=== PATIENT | female | born 1960 | race Caucasian/White ===

== ENCOUNTER → 2020-03-16 08:59 | Outpatient (BNVA) | payer MEDICAID, SELFPAY | PROVIDERS: PCP Nurse Practitioner Family; Referring Provider Nurse Practitioner Family; Visit Provider Internal Medicine Endocrinology, Diabetes & Metabolism | DX: Z76.89 Persons encountering health services in other specified circumstances (principal) ==

== ENCOUNTER → 2020-03-29 10:49 | Outpatient (BNVA) | payer MEDICAID, SELFPAY | PROVIDERS: PCP Nurse Practitioner Family; Referring Provider Nurse Practitioner Family; Visit Provider Internal Medicine Gastroenterology | DX: Z76.89 Persons encountering health services in other specified circumstances (principal) ==

== ENCOUNTER 2020-03-30 10:02 | Outpatient (REF) | payer MEDICAID, SELFPAY ==
[2020-03-30 10:41] LABS: MANUAL DIFF FLAG NO
[2020-03-30 10:45] LABS: Basophils Percent Auto 0.4 % (0-2); Eosinophils Absolute Auto 0.2 X10*3/uL (0.0-0.4); Eosinophils Percent Auto 2.1 % (0-4); Hematocrit 40.2 % (37-47); Imm Gran Abs Auto 0.01 X10*3/uL (0.00-0.03); Imm Gran Pct Auto 0.1 % (0.0-0.4); Lymphocytes Absolute Auto 2.4 X10*3/uL (1.2-4.9); Lymphocytes Percent Auto 32.7 % (20-40); Mean Corpuscular HGB Conc 34.8 g/dl (31.0-35.0); Mean Corpuscular Hemoglobin 35.5 pg (27.0-33.0); Mean Platelet Volume 10.1 fL (9.4-12.3); Monocytes Absolute Auto 0.6 X10*3/uL (0.1-1.2); Monocytes Percent Auto 7.8 % (2-11); Neutrophils Absolute Auto 4.2 X10*3/uL (2.0-8.3); Neutrophils Percent Auto 56.9 % (45-73); Platelet Count 193 X10*3/uL (160-400); Red Blood Count 3.94 X10*6/uL (4.20-5.50); Red Cell Distribution Width 12.3 % (11.0-16.0); White Blood Count 7.3 X10*3/uL (4.8-10.8)
[2020-03-30 10:50] LABS: INTERNATIONAL NORM RATIO 1.1 (0.9-1.1); Prothrombin Time 13.5 SEC (10.8-13.0)
[2020-03-30 11:06] LABS: Alanine Aminotransferase 46 U/L (0-31); Albumin Level 4.1 g/dL (3.5-5.0); Alkaline Phosphatase 66 U/L (39-117); Anion Gap 13 (12-20); Aspartate Amino Transferase 68 U/L (5-31); Bilirubin Total 0.7 mg/dL (0.0-1.0); Blood Urea Nitrogen 6 mg/dL (9-16); Calcium 9.3 mg/dL (8.4-10.2); Carbon Dioxide 31 mmol/L (22-29); Chloride 98 mmol/L (96-108); Estimated Glomerular Filt Rate > 60; Glucose Random 120 mg/dL (60-115); Potassium 4.3 mmol/l (3.3-5.1); Sodium 138 mmol/L (135-145); Total Protein 7.7 g/dL (6.5-8.0)
[2020-03-31 08:18] LABS: Hepatitis A Antibody IgG REACTIVE (Nonreactive); ~Hepatitis A Antibody IgG 11.04 S/CO (0.00-0.99)
[2020-03-31 08:33] LABS: Hepatitis B Surface Antigen Negative (Negative); ~HepC Num1 0.13 S/CO (0.00-0.79); ~Hepatitis C Antibody Nonreactive (Nonreactive)
[2020-03-31 09:16] LABS: HBS Num1 23.74 mIU/mL (0-7.99); HBc Num1 0.14 S/CO (0.00-0.79); Hepatitis B Core Antibody Nonreactive (Nonreactive); ~Hepatitis B Surface Antibody REACTIVE (Nonreactive)
[2020-04-01 13:43] LABS: Anti Nuclear Antibody Screen NEGATIVE (NEGATIVE)
[2020-04-06 23:33] LABS: Smooth Muscle Antibody <20 U (<20)
[2020-04-07 16:37] LABS: FIB-ALT 43 U/L (6-29); FIB-Alpha-2-Macroglobulin 340 mg/dL (106-279); FIB-Apolipoprotein A1 118 mg/dL (101-198); FIB-GGT 283 U/L (3-65); FIB-Haptoglobin <8 mg/dL (43-212); FIB-Total Bilirubin 0.5 mg/dL (0.2-1.2); Liver Fibrosis Score 0.94; Liver Fibrosis Stage F4; Nec Inflam Act Grade A1-A2; Nec Inflam Act Score 0.46
== END 2020-03-30 10:03 | disposition home or self-care (01) ==
LOC: HO.LAB 10:02
PROVIDERS: PCP Nurse Practitioner Family; Visit Provider Internal Medicine Gastroenterology
DX: K74.60 Unspecified cirrhosis of liver (principal)
CPT/HCPCS: 36415; 80053; 81596; 85025; 85610; 86038; 86039; 86255; 86704; 86706; 86708; 86803; 87340

== ENCOUNTER 2020-04-14 09:52 | Outpatient (REF) | payer MEDICAID, SELFPAY ==
--- NOTE | 2020-04-14 09:57 | US_ITS ---
EXAMINATION: ULTRASOUND ABDOMEN WITH LAST TO GRAVITY. CLINICAL INFORMATION: Unspecified cirrhosis of liver COMPARISON: None TECHNIQUE: Routine Limited imaging of the abdomen was performed FINDINGS: The body of the pancreas is homogeneous in echotexture. The tail and head of the pancreas is normal echogenic appearance without enlargement. The liver measures 18.6 cm in length and left lobe measures 14.6 cm in length. The liver is diffusely echogenic without any focal lesion or intrahepatic ductal dilatation. There is normal hepatopedal flow seen in the portal vein on Doppler exam. From Elastography the EPQ velocity median value is 1.74 and IQR/median is 0.20. There are no radiopaque gallstones wall thickening, polyps or echogenic bile. CBD measures 0.55 cm. The right kidney measures 11.4 cm. There is normal cortical thickness. No echogenic stones, cyst or hydronephrosis seen. US/US abdomen mahmood w elastography IMPRESSION: Hepatic steatosis without focal lesion. There is hepatopedal flow seen in the portal vein. Visualized pancreas, gallbladder and the right kidney is unremarkable. On Elastography there is mild to moderate fibrosis stage F2 - F3
== END 2020-04-14 09:53 | disposition home or self-care (01) ==
LOC: HO.US 09:52
PROVIDERS: PCP Nurse Practitioner Family; Visit Provider Internal Medicine Gastroenterology
DX: K74.60 Unspecified cirrhosis of liver (principal)
CPT/HCPCS: 76705; 76981

== ENCOUNTER → 2020-06-22 10:15 | Outpatient (BNVA) | payer MEDICAID, SELFPAY | PROVIDERS: PCP Nurse Practitioner Family; Visit Provider Internal Medicine Endocrinology, Diabetes & Metabolism | DX: E11.65 Type 2 diabetes mellitus with hyperglycemia (principal); E11.21 Type 2 diabetes mellitus with diabetic nephropathy; Z79.4 Long term (current) use of insulin; E78.5 Hyperlipidemia, unspecified; E04.2 Nontoxic multinodular goiter; E55.9 Vitamin D deficiency, unspecified; E66.9 Obesity, unspecified; M81.0 Age-related osteoporosis without current pathological fracture; I10 Essential (primary) hypertension | CPT/HCPCS: 82947; 99212 ==

== ENCOUNTER 2020-06-22 11:33 | Outpatient (REF) | payer MEDICAID, SELFPAY ==
[2020-06-22 13:56] LABS: Free T4 (Free Thyroxine) 0.97 ng/dL (0.71-1.85); Thyroid Stimulating Hormone 1.47 uIU/mL (0.32-4.0); Vitamin D 25-OH Total 31.3 ng/mL (>30)
[2020-06-22 14:06] LABS: Creatinine Urine 25.65 mg/dL; Microalbumin Urine < 5.0 mg/L
[2020-06-23 08:07] LABS: LDL Cholesterol Direct 58 mg/dL (<100)
[2020-06-28 13:48] LABS: N-Telopeptide 12 (see note); NTXCreaRU 25 mg/dL (20-275)
== END 2020-06-22 11:34 | disposition home or self-care (01) ==
LOC: HO.10HDL 11:33
PROVIDERS: Visit Provider Internal Medicine Endocrinology, Diabetes & Metabolism
DX: M81.0 Age-related osteoporosis without current pathological fracture (principal); E04.2 Nontoxic multinodular goiter; E11.65 Type 2 diabetes mellitus with hyperglycemia
CPT/HCPCS: 36415; 82043; 82306; 82523; 83721; 84439; 84443

== ENCOUNTER 2020-06-30 10:05 | Outpatient (REF) | payer MEDICAID, SELFPAY ==
--- NOTE | ~2020-06-30 | US_ITS ---
EXAMINATION: US THYROID CLINICAL INFORMATION: Nontoxic multinodular goiter. COMPARISON: Ultrasound soft tissue head/neck thyroid dated 12/26/2018 and 09/27/2017 TECHNIQUE: Linear transducer calloway-scale and color Doppler examination with attention to the region of the thyroid. FINDINGS: SIZE: Measurements of the thyroid lobes and nodules are given in sagittal, anteroposterior and transverse dimensions respectively. Right Thyroid Lobe: 2.9 x 0.8 x 0.9 cm, volume 1.0 mL. Previously 3.5 x 1.1 x 0.8 cm, volume 1.6 mL. Parenchyma: The gland echotexture is homogeneous. Thyroid vascularity is normal. Left Thyroid Lobe: 4.6 x 2.7 x 2.4 cm, volume 15.7 mL. Previously 4.2 x 2.4 x 2.3 cm, volume 11.7 mL. Parenchyma: The gland echotexture is heterogeneous. Thyroid vascularity is normal. Isthmus: 0.2 cm in maximum AP dimension. Previously 0.2 cm. Estimated total number of nodules greater than or equal to 1 cm: 1. Biology Tutor nodules are described as follows: 1. Location: Left. Size: 3.1 x 2.0 x 2.7 cm, volume 8.8 mL. Previously: 3.3 x 2.4 x 2.3 cm, volume 9.7 mL. Nodule characteristics: Composition: Solid/almost completely solid (2). Echogenicity: Hypoechoic (2). Shape: Taller than wide (3). Margins: Smooth (0). Echogenic Foci: Macrocalcifications (1). ACR TI-RADS total points: 8 ACR TI-RADS category: 5 Significant change in size (>/= 20% in 2 dimensions and minimal increase of 2 mm or 50% or greater increase in volume): Minimal decrease in the volume. Change in features: None. Change in ACR TI-RADS risk category: None. Also visualized is a tiny cyst in the right lobe. NODES: No lymphadenopathy is seen in the tissue surrounding the thyroid gland. US/US thyroid IMPRESSION: Solitary nodule left lobe unchanged to previous exam. Abnormal by TI-RADS criteria. Since there is no change, recommend continued followup. ACR TI-RADS RECOMMENDATION REFERENCE: Ultrasound-guided fine-needle aspiration, followup ultrasound, no further follow up. * TR1 (0 point) and TR 2 (2 points): No FNA or follow up. * TR3 (3 points): FNA if more than or equal to 2.5 cm in maximum dimension, followup ultrasound in 1, 3 and 5 years if 1.5 to 2.4 cm in maximum dimension. * TR4 (4-6 points): FNA if more than or equal to 1.5 cm in maximum dimension, followup ultrasound in 1, 2, 3 and 5 years if 1 to 1.4 cm in maximum dimension. * TR5 (more than or equal to 7 points): FNA if more than or equal to 1 cm in maximum dimension, followup ultrasound every year for 5 years if 0.5 to 0.9 cm in maximum dimension. * TR3, TR4 or TR5 nodules that are below the size threshold for follow up receive no follow up.
== END 2020-06-30 10:06 | disposition home or self-care (01) ==
LOC: HO.US 10:05
PROVIDERS: Visit Provider Internal Medicine Endocrinology, Diabetes & Metabolism
DX: E04.2 Nontoxic multinodular goiter (principal)
CPT/HCPCS: 76536

== ENCOUNTER → 2020-09-28 09:42 | Outpatient (BNVA) | payer MEDICAID, SELFPAY | PROVIDERS: Visit Provider Internal Medicine Endocrinology, Diabetes & Metabolism | DX: E11.65 Type 2 diabetes mellitus with hyperglycemia (principal); E11.21 Type 2 diabetes mellitus with diabetic nephropathy; E78.5 Hyperlipidemia, unspecified; E04.2 Nontoxic multinodular goiter; E55.9 Vitamin D deficiency, unspecified; E66.9 Obesity, unspecified; I10 Essential (primary) hypertension; M81.0 Age-related osteoporosis without current pathological fracture; Z79.4 Long term (current) use of insulin | CPT/HCPCS: 82947; 99212 ==

== ENCOUNTER → 2021-01-24 13:19 | Outpatient (BNVA) | payer MEDICAID, SELFPAY | PROVIDERS: PCP Nurse Practitioner Family; Referring Provider Nurse Practitioner Family; Visit Provider Internal Medicine Gastroenterology | DX: K21.9 Gastro-esophageal reflux disease without esophagitis (principal); K74.60 Unspecified cirrhosis of liver; E55.9 Vitamin D deficiency, unspecified | CPT/HCPCS: 99212 ==

== ENCOUNTER 2021-02-16 07:38 | Outpatient (REF) | payer MEDICAID, SELFPAY ==
--- NOTE | ~2021-02-16 | US_ITS ---
EXAMINATION: US ABDOMEN COMPLETE CLINICAL INFORMATION: Unspecified cirrhosis of liver. COMPARISON: Ultrasound abdomen limited 06/04/2020. Ultrasound abdomen complete 03/25/2019. CT abdomen 12/18/2018. X-ray abdomen 05/30/2018. MRA abdomen 11/26/2017. TECHNIQUE: Real-time imaging of the abdominal viscera. FINDINGS: PANCREAS: Normal. ABDOMINAL AORTA: The proximal visualized abdominal aorta is unremarkable. Remainder of the aorta is not visualized due to overlying bowel gas, accordingly not evaluated. INFERIOR VENA CAVA: Visualized portions are normal. LIVER: The left lobe measures 16.4 cm. The right lobe measures 17.0 cm. The liver contour is normal. There is diffuse increased liver parenchymal echogenicity, consistent with hepatic steatosis, hepatocellular disease or combination thereof. No focal hepatic lesion. There is no intrahepatic biliary duct dilatation seen. GALLBLADDER: Surgically absent. COMMON BILE DUCT: Normal in caliber measuring 0.8 cm in diameter. RIGHT KIDNEY: Normal. No hydronephrosis. No renal calculi or focal parenchymal lesions. The kidney measures 11.2 cm in maximum dimension. LEFT KIDNEY: Normal. No hydronephrosis. No renal calculi or focal parenchymal lesions. The kidney measures 11.8 cm in maximum dimension. SPLEEN: Multiple circumscribed echogenic foci are identified, the largest measures 1.2 x 1.4 cm, shows sonographic morphology most consistent with hemangioma, appears similar to prior CT study dated 12/18/2018. The spleen measures 13.2 cm in maximum dimension. FREE FLUID: None. US/US abdomen complete IMPRESSION: 1. No sonographic evidence of focal liver lesion. 2. Multiple presumed hemangioma within the spleen, the largest measures 1.4 cm, appears stable since 12/18/2018.
== END 2021-02-16 07:39 | disposition home or self-care (01) ==
LOC: HO.US 07:38
PROVIDERS: Visit Provider Internal Medicine Gastroenterology
DX: K74.60 Unspecified cirrhosis of liver (principal)
CPT/HCPCS: 76700

== ENCOUNTER 2021-02-25 08:59 | Day surgery (SDC) | payer MEDICAID, SELFPAY ==
--- NOTE | 2021-02-24 15:20 | HO.ANESPROP2 ---
Documented by User: Alyssa Gamez NP 02/24/21 15:25 HPI - Anesthesia Eval Consult details Narrative: 60yo F for Upper Endoscopy ETOH daily - 3 beers per GI note PMFSH Active Problems Active Problems: All Active Problems (Updated 03/16/20 @ 09:35 by Patricia Newman MD) Obesity (BMI 30-39.9) (Acute) GERD (gastroesophageal reflux disease) (Acute) Cirrhosis (Acute) Vitamin D deficiency (Acute) Hypertension (Acute) Dyslipidemia (Acute) Non-toxic multinodular goiter (Acute) Osteoporosis (Acute) Diabetic 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 with type 2 diabetes mellitus (Acute) custodial (current) use of insulin (Acute) Diabetes type 2, uncontrolled (Acute) Past Medical History Medical History (Updated 02/25/21 @ 09:42 by Emily Del Castillo, RN) Asthma Cirrhosis Diabetes type 2, uncontrolled Diabetic 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 with type 2 diabetes mellitus Dyslipidemia GERD (gastroesophageal reflux disease) Hypertension custodial (current) use of insulin Non-toxic multinodular goiter Obesity (BMI 30-39.9) Osteoporosis Vitamin D deficiency Family History Family History Father Esophageal cancer Mother Diabetes mellitus HTN (hypertension) Surgical History Surgical History (Updated 02/25/21 @ 09:31 by Emily Del Castillo, RN) History of bladder surgery History of esophagogastroduodenoscopy (EGD) Hx of cardiac cath Hx of cataract extraction Hx of cholecystectomy Hx of colonoscopy Social History Social History Alcohol intake: current Alcohol intake frequency: 3 or more drinks per day Alcohol type: beer Patient Tobacco Use Status: Former Tobacco user Tobacco use type: Cigarette Advance Directives: Yes Advance Directives Information Provided: Yes Advance Directives on File: Yes Advance Directives Date on File: 11/18/15 Meds Allergies Allergy/AdvReac Type Severity Reaction Status Date / Time cornflower [Cornflower] Allergy Unknown ITCHY Verified 02/25/21 09:32 EYES/HIVES peach [PEACH] Allergy Unknown NATURAL Verified 02/25/21 09:32 FRUIT - MOUTH ITCHES apples Allergy Unknown Unknown Uncoded 03/16/20 09:23 peanut Allergy Unknown Unknown Uncoded 03/16/20 09:23 Home Medications Medication Instructions Recorded Confirmed Last Taken Type fenofibrate micronized 134 mg 134 mg PO DAILY 03/16/20 02/21/21 Unknown History capsule gabapentin 100 mg capsule 100 mg PO BEDTIME 03/16/20 02/21/21 Unknown History lancets 28 gauge (FreeStyle #100 ea 03/16/20 01/24/21 Unknown History Lancets) sertraline 50 mg tablet (Zoloft) 50 mg PO DAILY 03/16/20 02/21/21 Unknown History trazodone 100 mg tablet 100 mg PO BEDTIME PRN 03/16/20 02/21/21 Unknown History solifenacin 5 mg tablet 5 mg PO DAILY 06/22/20 02/21/21 Unknown History budesonide-formoterol HFA 160 2 puff PO 02/25/21 02/25/21 Unknown History mcg-4.5 mcg/actuation aerosol inhaler (Symbicort) Exam Exam Date and Time: February 24, 2021 1520 Height,Weight and Vital Signs: Height 5 ft 1 in Weight 72.121 kg Assessment and Plan Assessment Anesthesia Assessment: Chart Reviewed Documented by User: Dave Pagan 02/25/21 10:34 [facility] Past Medical History Medical History (Updated 02/25/21 @ 09:42 by Emily Del Castillo, CHRISTIAN) Asthma Cirrhosis Diabetes type 2, uncontrolled Diabetic 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 with type 2 diabetes mellitus Dyslipidemia GERD (gastroesophageal reflux disease) Hypertension custodial (current) use of insulin Non-toxic multinodular goiter Obesity (BMI 30-39.9) Osteoporosis Vitamin D deficiency Family History Family History Father Esophageal cancer Mother Diabetes mellitus HTN (hypertension) Family history of problems with anesthesia: No Surgical History Surgical History (Updated 02/25/21 @ 09:31 by mEily De lCastillo, CHRISTIAN) History of bladder surgery History of esophagogastroduodenoscopy (EGD) Hx of cardiac cath Hx of cataract extraction Hx of cholecystectomy Hx of colonoscopy History of Problems with Anesthesia: No Social History Social History Alcohol intake: current Alcohol intake frequency: 3 or more drinks per day Alcohol type: beer Patient Tobacco Use Status: Former Tobacco user Tobacco use type: Cigarette Advance Directives: Yes Advance Directives Information Provided: Yes Advance Directives on File: Yes Advance Directives Date on File: 11/18/15 Meds Allergies Allergy/AdvReac Type Severity Reaction Status Date / Time cornflower [Cornflower] Allergy Unknown ITCHY Verified 02/25/21 09:32 EYES/HIVES peach [PEACH] Allergy Unknown NATURAL Verified 02/25/21 09:32 FRUIT - MOUTH ITCHES apples Allergy Unknown Unknown Uncoded 03/16/20 09:23 peanut Allergy Unknown Unknown Uncoded 03/16/20 09:23 Home Medications Medication Instructions Recorded Confirmed Last Taken Type fenofibrate micronized 134 mg 134 mg PO DAILY 03/16/20 02/21/21 Unknown History capsule gabapentin 100 mg capsule 100 mg PO BEDTIME 03/16/20 02/21/21 Unknown History lancets 28 gauge (FreeStyle #100 ea 03/16/20 01/24/21 Unknown History Lancets) sertraline 50 mg tablet (Zoloft) 50 mg PO DAILY 03/16/20 02/21/21 Unknown History trazodone 100 mg tablet 100 mg PO BEDTIME PRN 03/16/20 02/21/21 Unknown History solifenacin 5 mg tablet 5 mg PO DAILY 06/22/20 02/21/21 Unknown History budesonide-formoterol HFA 160 2 puff PO 02/25/21 02/25/21 Unknown History mcg-4.5 mcg/actuation aerosol inhaler (Symbicort) Exam Airway Mallampati Class: III TM Dist: >3cm Denture: Upper Loose/Missing/Broken Teeth: Yes Heart: rrr Lungs: bl breath sounds Assessment and Plan Assessment Anesthesia Assessment: Anesthesia Plan Discussed Final Anesthetic Review Family History of Problems with Anesthesia: No History of Problems with Anesthesia: No NPO: Yes ASA Class: III Final Preanesthetic Review: Meds/Allgs Chart Reviewed and Anes Risks/Benef Reviewed Patient Risk: Intermediate Procedure Risk: Intermediate Anesthetic Plan Anesthetic Plan: MAC: Disposition: Standard PACU
[2021-02-25 08:51] LABS: MANUAL DIFF FLAG NO
[2021-02-25 09:33] LABS: Basophils Percent Auto 0.5 % (0-2); Eosinophils Absolute Auto 0.2 X10*3/uL (0.0-0.4); Eosinophils Percent Auto 2.5 % (0-4); Hematocrit 42.2 % (37.0-47.0); Hemoglobin 14.2 g/dl (12.0-16.0); Imm Gran Abs Auto 0.02 X10*3/uL (0.00-0.03); Imm Gran Pct Auto 0.3 % (0.0-0.4); Lymphocytes Absolute Auto 2.3 X10*3/uL (1.2-4.9); Lymphocytes Percent Auto 36.4 % (20-40); Mean Corpuscular HGB Conc 33.6 g/dl (31.0-35.0); Mean Corpuscular Hemoglobin 34.7 pg (27.0-33.0); Mean Corpuscular Volume 103.2 fL (80.0-98.0); Mean Platelet Volume 10.3 fL (9.4-12.3); Monocytes Absolute Auto 0.5 X10*3/uL (0.1-1.2); Monocytes Percent Auto 8.4 % (2-11); Neutrophils Absolute Auto 3.3 x10*3/uL (2.0-8.3); Neutrophils Percent Auto 51.9 % (45-73); Platelet Count 207 X10*3/uL (160-400); Red Blood Count 4.09 X10*6/uL (4.20-5.50); Red Cell Distribution Width 12.2 % (11.0-16.0); White Blood Count 6.4 X10*3/uL (4.8-10.8)
[2021-02-25 09:40] LABS: INTERNATIONAL NORM RATIO 1.1 (0.9-1.1); Prothrombin Time 12.9 SEC (9.9-13.0)
--- NOTE | 2021-02-25 09:40 | MHC.SHP ---
Pre-Procedural Eval Section A Date of Service: 02/25/21 The patient is an INPATIENT: No The History & Physical has been completed within 30 days and I have reviewed it.: No Section B Chief Complaint: GERD, dysphagia Details of Present Illness: GERD, dysphagia, abdominal bloating, diarrhea Relevant Family History (Specify if Yes): Yes Relevant Social History: Tobacco Use (former smoker) Present Medications: see Short Stay Collaborative assessment Medical History: Significant History (Cirrhosis Diabetes type 2, uncontrolled Diabetic 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 with type 2 diabetes mellitus Dyslipidemia GERD (gastroesophageal reflux disease) Hypertension penitentiary (current) use of insulin Non-toxic multinodular goiter Obesity (BMI 30-39.9) Osteoporosis Vitamin D deficiency) History of Previous Operations: Relevant previous surgery/procedure and date(s) (History of bladder surgery History of esophagogastroduodenoscopy (EGD) Hx of cardiac cath Hx of cholecystectomy Hx of colonoscopy) Allergies: Allergies Allergy/AdvReac Type Severity Reaction Status Date / Time cornflower [Cornflower] Allergy Unknown ITCHY Verified 02/25/21 09:32 EYES/HIVES peach [PEACH] Allergy Unknown NATURAL Verified 02/25/21 09:32 FRUIT - MOUTH ITCHES apples Allergy Unknown Unknown Uncoded 03/16/20 09:23 peanut Allergy Unknown Unknown Uncoded 03/16/20 09:23 Review of Systems Sugical H&P ROS: Negative: Constitution and Cardiovascular and Yes, Specify: Respiratory (cough ) and Gastrointestinal (as noted above) Exam Surgical H&P Exam: Normal: Heart, Normal: Lungs, Normal: Extremities and Normal: Abdomen Plan Diagnosis/Plan: Unchanged I have reviewed the history and physical and performed a pertinent physical examination on my patient. No changes have occurred unless specified.
[2021-02-25 09:42] VITALS: BP 135/66; PULSE 66; RESP 16; TEMP 36.6; O2SAT 95
--- NOTE | 2021-02-25 09:44 | PM.OP ---
Brief Operative Note Date of Service: 02/25/21 Pre-op diagnosis: GERD, dysphagia, abd bloating, diarrhea Post-op diagnosis: other (GERD, esophageal nodule, gastric polyps, portal gastropathy, gastritis) Procedure: FLEXIBLE TRANSORAL UPPER GASTROINTESTINAL ENDOSCOPY WITH BIOPSIES Consent: Indications for the procedure and potential complications of bleeding, perforation, reaction to medications and missed diagnosis were discussed with the patient and informed consent was obtained. Instrument: Olympus GIF H 190 mid size upper endoscope Monitoring: Vital signs and clinical assessment, continuous EKG monitoring, Pulse oximetry, Carbon Dioxide monitoring and blood pressure monitoring were done throughout the procedure. Procedure: The patient was placed in the left lateral decubitis position and pre-procedure medications were administered and a bite block was placed. The endoscope was inserted into the mouth and advanced under direct vision to the third part of duodenum. A careful inspection was made as the upper endoscope was withdrawn including a retroflexed examination of the proximal stomach; Findings and interventions are described below. Findings: Larynx: Normal Esophagus: A 3-4 mm benign appearing nodule in the mid esophagus at 30 cms - biopsied. GE junction at 38 cms. Tortuous esophagus with increased tertiary contractions without stricture or ring - empiric balloon dilation was performed with a 19 mm CRE balloon x 60 sec. Biopsies were obtained from proximal esophagus to check for EOE No esophagitis or Bui's. Stomach: Moderate non-erosive portal gastropathy involving the gastric body and fundus. Mild gastric erythema. Biopsies were obtained. A few 3-4 mm benign appearing gastric polyps in the gastric body which were biopsied. No gastric varices and Grade 2 flap valve on retroflexed examination of the cardia. Duodenum: Normal bulb and descending duodenum Intervention: Biopsies as noted above Intervention: Biopsies as noted above Impression and Post Procedure Diagnosis: Endoscopy Findings: ESOPHAGUS: A 3-4 mm benign appearing nodule in the mid esophagus at 30 cms - biopsied. GE junction at 38 cms. Tortuous esophagus with increased tertiary contractions without stricture or ring - empiric balloon dilation was performed with a 19 mm CRE balloon x 60 sec. Biopsies were obtained from proximal esophagus to check for EOE No esophagitis or Bui's. STOMACH: Moderate non-erosive portal gastropathy involving the gastric body and fundus. Mild gastric erythema. Biopsies were obtained. Gastric polyp. DUODENUM: Normal - bxed to check for celiac sprue. Plan: Await pathology results Patient has an appointment on 04/28/20 in the GI Clinic with Julissa Newberry M.D.. Above findings were reviewed with the patient and GERD and Gastritis handouts were given in the discharge area Surgeon: Julissa Newberry MD Anesthesia: MAC (Dr Pagan) Was an Aix Administrator used for this Procedure?: No Aix Administrator: Haylie Curtis Estimated blood loss (mL): 0 Pathology: other ( A. small bowel biopsies, R/O celiac B. gastric antrum, R/O H. pylori C. gastric polyp D. nodule mid esophagus E. proximal esophagus, R/O EOE) Condition: stable Disposition: PACU
[2021-02-25] MEDS: Lactated Ringers 1,000 ML 100 ML IVCONT (10:01)
[2021-02-25 10:07] LABS: Alanine Aminotransferase 41 U/L (0-31); Albumin Level 4.2 g/dL (3.5-5.0); Alkaline Phosphatase 71 U/L (39-117); Anion Gap 15 (12-20); Aspartate Amino Transferase 50 U/L (5-31); Bilirubin Total 0.7 mg/dL (0.0-1.0); Blood Urea Nitrogen 10 mg/dL (9-16); Calcium 9.6 mg/dL (8.4-10.2); Carbon Dioxide 31 mmol/L (22-29); Chloride 99 mmol/L (96-108); Estimated Glomerular Filt Rate > 60; Glucose Random 163 mg/dL (60-115); Potassium 4.7 mmol/L (3.3-5.1); Sodium 140 mmol/L (135-145); Total Protein 7.7 g/dL (6.5-8.0)
[2021-02-25 10:14] LABS: Glucose, Whole Blood 174 mg/dL (60-115)
--- NOTE | 2021-02-25 10:18 | W.PM.OPN ---
Operative Note Operative Note Date of Service: 02/25/21 Narrative: Pre-op diagnosis:?GERD, dysphagia, abd bloating, diarrhea Post-op diagnosis:?other (GERD, esophageal nodule, gastric polyps, portal gastropathy, gastritis) Procedure:? FLEXIBLE TRANSORAL UPPER GASTROINTESTINAL ENDOSCOPY WITH BIOPSIES Consent:?Indications for the procedure and potential complications of bleeding, perforation, reaction to medications and missed diagnosis were discussed with the patient and informed consent was obtained. Instrument:?Olympus GIF H 190 mid size upper endoscope Monitoring: Vital signs and clinical assessment, continuous EKG monitoring, Pulse oximetry, Carbon Dioxide monitoring and blood pressure monitoring were done throughout the procedure. Procedure:?The patient was placed in the left lateral decubitis position and pre-procedure medications were administered and a bite block was placed. The endoscope was inserted into the mouth and advanced under direct vision to the third part of duodenum. A careful inspection was made as the upper endoscope was withdrawn including a retroflexed examination of the proximal stomach; Findings and interventions are described below. Findings: Larynx:? Normal Esophagus: A 3-4 mm benign appearing nodule in the mid esophagus at 30 cms - biopsied. GE junction at 38 cms.? Tortuous esophagus with increased tertiary contractions without stricture or ring - empiric balloon dilation was performed with a 19 mm CRE balloon x 60 sec.? Biopsies were obtained from proximal esophagus to check for EOE No esophagitis or Bui's. Stomach: Moderate non-erosive portal gastropathy involving the gastric body and fundus. Mild gastric erythema. Biopsies were obtained. A few 3-4 mm benign appearing gastric polyps in the gastric body which were biopsied. ?No gastric varices and Grade 2 flap valve on retroflexed examination of the cardia. Duodenum: Normal bulb and descending duodenum Intervention: Biopsies as noted above Intervention: Biopsies as noted above Impression and Post Procedure Diagnosis: Endoscopy Findings: ESOPHAGUS: A 3-4 mm benign appearing nodule in the mid esophagus at 30 cms - biopsied. GE junction at 38 cms.? Tortuous esophagus with increased tertiary contractions without stricture or ring - empiric balloon dilation was performed with a 19 mm CRE balloon x 60 sec.? Biopsies were obtained from proximal esophagus to check for EOE No esophagitis or Bui's. STOMACH: Moderate non-erosive portal gastropathy involving the gastric body and fundus. Mild gastric erythema. Biopsies were obtained.? Gastric polyp. DUODENUM: Normal - bxed to check for celiac sprue. Plan: Await pathology results Patient has an appointment on 04/28/20 in the GI Clinic with? Julissa Newberry M.D.. Above findings were reviewed with the patient and GERD and Gastritis handouts were given in the discharge area Surgeon:?Julissa Newberry MD Anesthesia:?MAC (Dr Pagan) Was an Hardwood Flooring Specialist used for this Procedure?:?No Hardwood Flooring Specialist:?Haylie Curtis Pathology:?other ( A. small bowel biopsies, R/O celiac? B. gastric antrum, R/O H. pylori? C. gastric polyp? D. nodule mid esophagus? E. proximal esophagus, R/O EOE) Condition:?stable Disposition:?PACU
[2021-02-25 11:15] VITALS: BP 103/57; PULSE 70; RESP 12; TEMP 36.4; O2SAT 99
[2021-02-25 11:30] VITALS: BP 126/66; PULSE 68; RESP 14; O2SAT 98
[2021-02-25 11:45] VITALS: BP 120/75; PULSE 62; RESP 16; TEMP 36.6; O2SAT 94
[2021-02-28 12:07] LABS: Alpha Fetoprotein 6.8 ng/mL
== END 2021-02-25 12:25 | disposition home or self-care (01) ==
PROVIDERS: PCP Nurse Practitioner Family; Visit Provider Internal Medicine Gastroenterology
PROC: 0DJ08ZZ Inspection of Upper Intestinal Tract, Via Natural or Artificial Opening Endoscopic (ICD-10-PCS; CPT 43235; principal; 2021-02-25 10:40)
DX: K21.9 Gastro-esophageal reflux disease without esophagitis (principal); K31.7 Polyp of stomach and duodenum; K29.70 Gastritis, unspecified, without bleeding; K22.89 Other specified disease of esophagus; K20.80 Other esophagitis without bleeding; K31.89 Other diseases of stomach and duodenum; K74.60 Unspecified cirrhosis of liver; K31.9 Disease of stomach and duodenum, unspecified; I10 Essential (primary) hypertension; J45.909 Unspecified asthma, uncomplicated; E11.21 Type 2 diabetes mellitus with diabetic nephropathy; Z79.4 Long term (current) use of insulin; Z79.899 Other long term (current) drug therapy
CPT/HCPCS: 43249; 43239; 36415; 80053; 82105; 82947; 85025; 85610; 88305; 88312; 88342; C1726

== ENCOUNTER → 2021-04-28 13:13 | Outpatient (BNVA) | payer MEDICAID, SELFPAY | PROVIDERS: PCP Nurse Practitioner Family; Referring Provider Nurse Practitioner Family; Visit Provider Internal Medicine Gastroenterology | DX: Z13.89 Encounter for screening for other disorder (principal) | CPT/HCPCS: 99212 ==

== ENCOUNTER 2021-04-29 13:55 | Outpatient (REF) | payer MEDICAID, SELFPAY ==
--- NOTE | ~2021-04-29 | CT_ITS ---
EXAMINATION: CT CHEST SCREENING CLINICAL INFORMATION: Nicotine dependence. COMPARISON: CT chest 10/02/2018 TECHNIQUE: Multidetector volumetric CT imaging of the chest is performed without contrast using low dose technique. Additional 2-D coronal and sagittal reformatted images and axial 3-D maximum intensity projection (MIP) images are generated on the CT workstation. This CT examination was performed using dose optimization techniques as appropriate, variously including the following: *Automated exposure control *Adjustment of mA and/or kV according to patient size (this includes techniques or standardized protocols for targeted exams where dose is matched to indication/reason for exam; i.e. extremities or head) *Use of iterative reconstruction technique DLP: 182 mGy-cm FINDINGS: LUNGS: The lungs are well expanded with bilateral lower lobe consolidation/atelectasis. There is a 6 mm nodule right lower lobe anterobasal segment axial image 193/6, a 3 mm nodule right lower lobe anterobasal segment adjacent to the major fissure axial image 207/6. No additional nodules seen. There is mild ground-glass attenuation seen in both lower lobes and upper lobes, nonspecific. MEDIASTINUM: The right thyroid lobe is small and atrophic. The left thyroid lobe is enlarged with dystrophic calcification and nodule. The central trachea and the bronchi are widely patent. Heart size and the great vessels are normal caliber. A small right paratracheal lymph node measures 8 mm on axial image 11/4. Small shotty lymph nodes are seen in the anterior mediastinum, pretracheal space and the aortic window. There are trace coronary artery calcifications. No pericardial effusion seen. PLEURA: There is no pleural effusion. No pleural mass or thickening. AXILLA: No lymphadenopathy. UPPER ABDOMEN: The visualized liver, spleen, pancreas appear unremarkable. OSSEOUS STRUCTURES: Unremarkable. CT/CT lung screening IMPRESSION: Bilateral lower lobe patchy consolidation/atelectasis. Also visualized is ground-glass atelectasis nonspecific in both upper and lower lobes. Pulmonary nodules, as described above, are stable. No new nodules seen. Reactionary lymph nodes in the mediastinum are stable. Calcified enlarged left thyroid nodule, stable. ASSESSMENT: Lung-RADS category 2: Benign. RECOMMENDATION: Low-dose annual CT chest.
== END 2021-04-29 13:56 | disposition home or self-care (01) ==
LOC: HO.CT 13:55
PROVIDERS: Visit Provider Physician Assistant Medical
DX: Z12.2 Encounter for screening for malignant neoplasm of respiratory organs (principal); Z87.891 Personal history of nicotine dependence
CPT/HCPCS: 71271; G0296

== ENCOUNTER 2021-05-23 13:42 | Outpatient (REF) | payer MEDICAID, SELFPAY ==
--- NOTE | ~2021-05-23 | MM_ITS ---
EXAMINATION: MM SCREENING DIGITAL BREAST TOMOSYNTHESIS, BILATERAL CLINICAL INFORMATION: Screening. Asymptomatic. The lifetime risk of breast cancer based on the Tyrer-Cuzick Model is 9%. COMPARISON: Mammography: 02/19/2018, 02/17/2017, 02/02/2016 TECHNIQUE: Digital breast tomosynthesis is performed in both the craniocaudal and mediolateral oblique views along with computer-aided detection (CAD). Synthesized 2D images are generated from the tomosynthesis. Additional right MLO view is provided. FINDINGS: There are scattered areas of fibroglandular density (ACR BI-RADS breast composition Category b). Background stromal and fibroglandular densities are stable. There is no interval mass or architectural abnormality. Some additional bilateral scattered benign ductal secretory calcifications and some round calcifications are present. Low left axillary tail node is stable. The axilla are unremarkable. There is chronic mild nipple retraction again seen. No significant changes from prior exams. MM/MM tomosynthesis screening BI IMPRESSION: No mammographic evidence of malignancy. ASSESSMENT: BI-RADS 2: Benign RECOMMENDATION: Routine annual mammography screening. This patient's information was entered into a reminder system with a target due date for their next mammogram.
== END 2021-05-23 13:43 | disposition home or self-care (01) ==
LOC: HO.MAMMO 13:42
PROVIDERS: Visit Provider Nurse Practitioner Family
DX: Z12.31 Encounter for screening mammogram for malignant neoplasm of breast (principal)
CPT/HCPCS: 77063; 77067

== ENCOUNTER → 2021-06-03 10:42 | Outpatient (BNVA) | payer MEDICAID, SELFPAY | PROVIDERS: PCP Nurse Practitioner Family; Visit Provider Internal Medicine Endocrinology, Diabetes & Metabolism | DX: E11.65 Type 2 diabetes mellitus with hyperglycemia (principal); M18.0 Bilateral primary osteoarthritis of first carpometacarpal joints; E04.2 Nontoxic multinodular goiter | CPT/HCPCS: 82947; 83036; 99212 ==

== ENCOUNTER → 2021-06-24 10:52 | Outpatient (BNVA) | payer MEDICAID, SELFPAY | PROVIDERS: PCP Nurse Practitioner Family; Visit Provider Registered Nurse Diabetes Educator | DX: E11.21 Type 2 diabetes mellitus with diabetic nephropathy (principal); Z71.89 Other specified counseling | CPT/HCPCS: 99211 ==

== ENCOUNTER 2021-06-28 08:19 | Outpatient (REF) | payer MEDICAID, SELFPAY ==
--- NOTE | ~2021-06-28 | MM_ITS ---
EXAMINATION: BONE DENSITOMETRY CLINICAL INDICATION: Age-related osteoporosis without current pathological fracture. COMPARISON: Baseline BD dated 01/07/2019. TECHNIQUE: Using a [employer] DXA System (software version: 13.1) manufactured by [employer], dual-energy x-ray absorptiometry was performed of the lumbar spine and left hip. The images are of good technical quality. Summary results are attached. FINDINGS: AP SPINE L2-L4 (L3) (excluding L1 and L3): The data of L1-L4 has been changed to exclude the L1 and L3 vertebral bodies, because degenerative sclerosis at these levels may cause overestimation of lumbar spine density. Current: BMD 0.805 g/cm2, Z-score -2.2, T-score -3.3, osteoporosis, 5.3% decrease from baseline (<5% change is not significant). Baseline: BMD 0.850 g/cm2. LEFT FEMUR, NECK: Current: BMD 0.515 g/cm2, Z-score -2.6, T-score -3.8, osteoporosis. Baseline: BMD 0.657 g/cm2. LEFT FEMUR, TOTAL: Current: BMD 0.585 g/cm2, Z-score -2.5, T-score -3.4, osteoporosis, 22.6% decrease from baseline (<5% change is not significant). Baseline: BMD 0.756 g/cm2. IDENTIFIED RISK FACTORS: Rheumatoid arthritis, alcohol 3 or more units per day, history of fracture (adult), menopause. HISTORY OF FRACTURE: Spine. MEDICATIONS: None listed. MM/XR DEXA axial skeleton IMPRESSION: 1. DIAGNOSIS: Severe osteoporosis based on the lowest T-score value of -3.8 in the femoral neck and fracture history applying World Health Organization criteria. 2. 10-YEAR FRACTURE RISK PREDICTION, FRAX: Not performed due to previous hip/vertebral fracture. 3. Treatment Recommendations: NOF guidelines recommend consideration for treatment in postmenopausal women and men age 50 and older presenting with the following: -A hip or vertebral (clinical or morphometric) fracture. -T-score less than or equal to -2.5 at the femoral neck or spine after appropriate evaluation to exclude secondary causes. -Low bone mass at the hip or spine and a 10-year fracture probability by FRAX of greater than or equal to 3% for hip fracture or greater than or equal to 20% for major osteoporotic fracture based on the [place] adapted WHO algorithm. 4. Other Recommendations: All treatment decisions require clinical judgment and consideration of individual patient factors, including patient preferences, comorbidities, previous drug use, risk factors not captured in the FRAX model (e.g. frailty, falls, vitamin D deficiency, increased bone turnover, interval significant decline in bone density) and possible under or overestimation of fracture risk by FRAX. Additional medical evaluation for secondary cause of low bone mineral density may be appropriate. FUTURE SCAN RECOMMENDATION: People with diagnosed cases of osteoporosis or at high risk for fracture should have regular bone mineral density tests. For patients eligible for Medicare, routine testing is allowed once every 2 years. The testing frequency can be increased to one year for patients who have rapidly progressing disease, those who are receiving or discontinuing medical therapy to restore bone mass, or have additional risk factors.
== END 2021-06-28 08:20 | disposition home or self-care (01) ==
LOC: HO.MAMMO 08:19
PROVIDERS: PCP Nurse Practitioner Family; Visit Provider Internal Medicine Endocrinology, Diabetes & Metabolism
DX: Z13.820 Encounter for screening for osteoporosis (principal); M81.0 Age-related osteoporosis without current pathological fracture; M05.9 Rheumatoid arthritis with rheumatoid factor, unspecified; Z78.0 Asymptomatic menopausal state; Z87.81 Personal history of (healed) traumatic fracture
CPT/HCPCS: 77080

== ENCOUNTER 2021-07-05 11:30 | Outpatient (REF) | payer MEDICAID, SELFPAY ==
[2021-07-05 12:11] LABS: Total Volume 24 Hour Urine 1675 mL
[2021-07-05 12:29] LABS: Creatinine, 24Hr Urine 0.4 G/Day (1.0-2.0); Creatinine, mg/dL 23.25
[2021-07-07 19:02] LABS: Calcium, 24 Hr Urine 54 mg/24 h; Calcium/Creatinine Ratio 123 mg/g creat (30-275); Creatinine 24Hr Urine 0.44 g/24 h (0.50-2.15)
== END 2021-07-05 11:31 | disposition home or self-care (01) ==
LOC: HO.LNP 11:30
PROVIDERS: Visit Provider Internal Medicine Endocrinology, Diabetes & Metabolism
DX: M81.0 Age-related osteoporosis without current pathological fracture (principal)
CPT/HCPCS: 82340; 82570

== ENCOUNTER → 2021-07-22 12:17 | Outpatient (BNVA) | payer MEDICAID, SELFPAY | PROVIDERS: PCP Nurse Practitioner Family; Visit Provider Registered Nurse Diabetes Educator | DX: E11.65 Type 2 diabetes mellitus with hyperglycemia (principal); E11.21 Type 2 diabetes mellitus with diabetic nephropathy; Z79.4 Long term (current) use of insulin | CPT/HCPCS: 99211 ==

== ENCOUNTER → 2021-08-08 10:59 | Outpatient (BNVA) | payer MEDICAID, SELFPAY | PROVIDERS: PCP Nurse Practitioner Family; Visit Provider Registered Nurse Diabetes Educator | DX: E11.21 Type 2 diabetes mellitus with diabetic nephropathy (principal); Z79.4 Long term (current) use of insulin | CPT/HCPCS: 99211 ==

== ENCOUNTER → 2021-08-26 12:48 | Outpatient (BNVA) | payer MEDICAID, SELFPAY | PROVIDERS: PCP Nurse Practitioner Family; Visit Provider Registered Nurse Diabetes Educator | DX: E11.65 Type 2 diabetes mellitus with hyperglycemia (principal) | CPT/HCPCS: 99211 ==

== ENCOUNTER → 2021-09-01 10:57 | Outpatient (BNVA) | payer MEDICAID, SELFPAY | PROVIDERS: PCP Nurse Practitioner Family; Visit Provider Internal Medicine Endocrinology, Diabetes & Metabolism | DX: E11.65 Type 2 diabetes mellitus with hyperglycemia (principal); M81.0 Age-related osteoporosis without current pathological fracture; E04.2 Nontoxic multinodular goiter; Z79.4 Long term (current) use of insulin; Z79.899 Other long term (current) drug therapy | CPT/HCPCS: 82947; 83036; 99212 ==

== ENCOUNTER → 2021-09-12 09:15 | Outpatient (BNVA) | payer MEDICAID, SELFPAY | PROVIDERS: PCP Nurse Practitioner Family; Visit Provider Registered Nurse Diabetes Educator | DX: E11.65 Type 2 diabetes mellitus with hyperglycemia (principal) | CPT/HCPCS: 99211 ==

== ENCOUNTER 2021-09-27 08:25 | Outpatient (REF) | payer MEDICAID, SELFPAY ==
--- NOTE | ~2021-09-27 | FL_ITS ---
PROCEDURE: FL BARIUM SWALLOW CLINICAL INFORMATION: GE reflux disease with esophagitis. COMPARISON: None TECHNIQUE: Barium swallow examination is performed using fluoroscopic evaluation in addition to multiple fluoroscopic spot views. The patient is imaged both upright and prone and using both thick and thin sulfate along with effervescent granules. Fluoroscopy time: 1.7 minutes DAP: 10.305 Gy-cm2 Images: 69 FINDINGS: Following intravenous administration of thick barium, effervescent granules and barium-coated turkey in upright view there is normal propagation of bolus from the oral cavity through the pharynx, esophagus into stomach without any evidence of obstruction, narrowing or stricture. 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 There is no laryngeal penetration, aspiration or retention of barium in the valleculae or piriform sinuses. On administration of thin barium there is good distention of the entire esophagus without any intraluminal filling defect or extrinsic compression. FL/FL barium swallow IMPRESSION: Unremarkable barium swallow exam in upright view.
== END 2021-09-27 08:26 | disposition home or self-care (01) ==
LOC: HO.XRAY 08:25
PROVIDERS: Visit Provider Internal Medicine Gastroenterology
DX: R13.14 Dysphagia, pharyngoesophageal phase (principal); K21.9 Gastro-esophageal reflux disease without esophagitis
CPT/HCPCS: 74220

== ENCOUNTER → 2021-10-11 09:25 | Outpatient (BNVA) | payer MEDICAID, SELFPAY | PROVIDERS: PCP Nurse Practitioner Family; Visit Provider Registered Nurse Diabetes Educator | DX: E11.65 Type 2 diabetes mellitus with hyperglycemia (principal); Z79.4 Long term (current) use of insulin; Z71.89 Other specified counseling | CPT/HCPCS: 99211 ==

== ENCOUNTER → 2021-12-01 09:51 | Outpatient (BNVA) | payer MEDICAID, SELFPAY | PROVIDERS: PCP Nurse Practitioner Family; Visit Provider Internal Medicine Endocrinology, Diabetes & Metabolism | DX: E11.21 Type 2 diabetes mellitus with diabetic nephropathy (principal); E11.65 Type 2 diabetes mellitus with hyperglycemia; M81.0 Age-related osteoporosis without current pathological fracture; E04.2 Nontoxic multinodular goiter; Z79.4 Long term (current) use of insulin; Z79.899 Other long term (current) drug therapy | CPT/HCPCS: 82947; 83036; 99212 ==

== ENCOUNTER 2021-12-20 15:37 | Emergency (ER) | payer MEDICAID, SELFPAY ==
--- NOTE | ~2021-12-20 | CT_ITS ---
EXAMINATION: CT ABDOMEN AND PELVIS WITHOUT CONTRAST CLINICAL INFORMATION: Epigastric pain COMPARISON: 12/18/2018 TECHNIQUE: Multidetector volumetric imaging was performed from the superior aspect of the liver through the pubic symphysis. Sagittal and coronal reformatted images were obtained on the technologist's workstation. This CT examination was performed using dose optimization techniques as appropriate, variously including the following: *Automated exposure control *Adjustment of mA and/or kV according to patient size (this includes techniques or standardized protocols for targeted exams where dose is matched to indication/reason for exam; i.e. extremities or head) *Use of iterative reconstruction technique DLP: 628 mGy-cm FINDINGS: LUNG BASES: Groundglass opacities with linearity at both lung bases, favoring atelectasis. Visualized cardiac structures are unremarkable LIVER, GALLBLADDER, AND BILIARY TREE: The liver is enlarged with a nodular Contour. No focal hepatic lesion or biliary ductal dilatation is present. The gallbladder is unremarkable with no evidence of radiopaque gallstones, gallbladder wall thickening, or obvious pericholecystic inflammatory changes. PANCREAS: Diffuse atrophy with no focal abnormality. SPLEEN: Unremarkable. ADRENAL GLANDS: Unremarkable. KIDNEYS AND URETERS: The kidneys are normal in size, shape, and attenuation. No hydronephrosis, hydroureter, or calculi seen. No perinephric stranding. BLADDER: Unremarkable. GASTROINTESTINAL TRACT: The small and large bowel are unremarkable. The appendix is unremarkable. ABDOMINAL WALL: No significant hernia is appreciated. LYMPH NODES: Normal. VASCULAR: Normal caliber aorta with moderate atherosclerotic calcification. PELVIC VISCERA: Anteverted uterus with heterogeneous lesion of the myometrium, likely a fibroid. No adnexal mass. OSSEOUS STRUCTURES: No acute or suspicious osseous abnormality. CT/CT abdomen pelvis wo IV con IMPRESSION: No acute finding in the abdomen or pelvis. Cirrhotic liver with no suspicious liver lesion. Groundglass opacities at the lung bases favor atelectasis. Fleischner guidelines were followed.
--- NOTE | ~2021-12-20 | XR_ITS ---
EXAMINATION: XR CHEST CLINICAL INFORMATION: Short of breath COMPARISON: 05/06/2019 TECHNIQUE: Frontal view of the chest was obtained. FINDINGS: Lung volumes are low. Linear opacities are seen at both lung bases. No pleural effusion or pneumothorax. The cardiomediastinal silhouette is within normal limits. XR/XR chest 1V IMPRESSION: Bibasilar linear atelectasis.
--- NOTE | ~2021-12-20 | US_ITS ---
EXAMINATION: US VENOUS WITH DOPPLER LOWER EXTREMITY, BILATERAL CLINICAL INFORMATION: Bilateral lower extremities swelling. COMPARISON: None TECHNIQUE: Ultrasound of the deep veins is performed from the hip to the calf with compression sonography and color and pulse Doppler assessment. Spectral analysis with color-flow imaging is performed. FINDINGS: RIGHT: There is normal venous compression and respiratory variation and augmented flow. The visualized common femoral vein, superficial femoral vein, profunda femoral vein, popliteal vein, and the trifurcation region shows no evidence of deep venous thrombosis. There is no significant popliteal fossa cyst. LEFT: There is normal venous compression and respiratory variation and augmented flow. The visualized common femoral vein, superficial femoral vein, profunda femoral vein, popliteal vein, and the trifurcation region shows no evidence of deep venous thrombosis. There is no significant popliteal fossa cyst. If the patient's symptoms persist, follow up ultrasound in 5 days 7 days might be of value to exclude proximal propagation from a non-visualized calf vein. US/US venous duplex LE BI IMPRESSION: No DVT demonstrated in the bilateral lower extremity.
[2021-12-20 18:22] VITALS: BP 125/36; PULSE 80; RESP 20; TEMP 36.7; O2SAT 92; BMI 31.4
[2021-12-20 18:43] LABS: MANUAL DIFF FLAG NO
[2021-12-20 18:47] LABS: Basophils Absolute Auto 0.1 X10*3/uL (0.0-0.2); Basophils Percent Auto 0.6 % (0-2); Eosinophils Absolute Auto 0.2 X10*3/uL (0.0-0.4); Eosinophils Percent Auto 1.9 % (0-4); Hematocrit 39.4 % (37.0-47.0); Hemoglobin 12.6 g/dl (12.0-16.0); Imm Gran Abs Auto 0.03 X10*3/uL (0.00-0.03); Imm Gran Pct Auto 0.4 % (0.0-0.4); Lymphocytes Absolute Auto 2.6 X10*3/uL (1.2-4.9); Lymphocytes Percent Auto 31.4 % (20-40); Mean Corpuscular Hemoglobin 31.7 pg (27.0-33.0); Mean Platelet Volume 9.8 fL (9.4-12.3); Monocytes Absolute Auto 0.7 X10*3/uL (0.1-1.2); Monocytes Percent Auto 7.9 % (2-11); Neutrophils Absolute Auto 4.8 x10*3/uL (2.0-8.3); Neutrophils Percent Auto 57.8 % (45-73); Platelet Count 259 X10*3/uL (160-400); Red Blood Count 3.98 X10*6/uL (4.20-5.50); Red Cell Distribution Width 14.3 % (11.0-16.0); White Blood Count 8.3 X10*3/uL (4.8-10.8)
[2021-12-20 18:53] LABS: INTERNATIONAL NORM RATIO 1.2 (0.9-1.1); Prothrombin Time 13.4 SEC (10.0-13.1)
[2021-12-20 19:00] LABS: Ethanol < 10 mg/dL
[2021-12-20 19:03] LABS: Alanine Aminotransferase 26 U/L (0-31); Albumin Level 4.4 g/dL (3.5-5.0); Alkaline Phosphatase 55 U/L (39-117); Anion Gap 16 (12-20); Aspartate Amino Transferase 51 U/L (5-31); Bilirubin Direct 0.4 mg/dL (0.0-0.5); Bilirubin Total 0.8 mg/dL (0.0-1.0); Blood Urea Nitrogen 8 mg/dL (9-16); Calcium 9.7 mg/dL (8.4-10.2); Carbon Dioxide 29 mmol/L (22-29); Chloride 101 mmol/L (96-108); Creatinine Clr Calc Pharmacy 73.3; Estimated Glomerular Filt Rate > 60; Glucose Random 77 mg/dL (60-115); Lipase 7 U/L (8-78); Potassium 3.7 mmol/L (3.3-5.1); Sodium 142 mmol/L (135-145); Total Protein 8.4 g/dL (6.5-8.0)
[2021-12-20 19:09] LABS: COVID-19 Test Negative (Negative); IDNOW Serial# 16C4AD1C
[2021-12-20 19:23] LABS: D Dimer High Sensitivity < 150 NG/ML
--- NOTE | 2021-12-20 21:40 | PC.NURSE ---
given 2 cups of orange juice for hypoglycemia per FreeStyle monitor. glucose 53. welt wheeler aware.
[2021-12-21 00:38] VITALS: BP 169/72; PULSE 89; RESP 20; TEMP 36.8; O2SAT 89
[2021-12-21 01:08] LABS: Glucose, Whole Blood 52 mg/dL (60-115)
--- NOTE | 2021-12-21 01:11 | PC.NURSE ---
2 cups of orange juice with 2 packs of sugar given for POC of 52 on a hospital glucometer.
[2021-12-21 01:24] LABS: Appearance Urine Clear; Color Urine Yellow; Glucose Urine UA Negative (Negative); Leukocyte Esterase Urine Large (3+) (Negative); Nitrite Urine Negative (Negative); PH 7.5 (5.0-9.0); UMIC TRIGGER UACC YES; Urine Blood Negative (Negative); Urine Ketones Negative (Negative); Urine Protein Negative (Neg-Trace)
--- NOTE | 2021-12-21 01:24 | ED.EXTPRO ---
HPI - Extremity Problem General Chief complaint: Extremity Problem Stated complaint: blood clots on both legs Time Seen by Provider: 12/20/21 18:35 Source: patient and educational sign language interpreter Mode of arrival: ambulatory History of Present Illness HPI Narrative: This is a 61-year-old female who is an everyday drinker but has quit smoking approximately 10 years ago and presents after her primary care provider referred her to the ER for concerns regarding DVT. Patient denies any fever, chills and has chronic COPD with related difficulty breathing at baseline and she denies any use of home oxygen. Patient denies chest pain/palpitations and states that her bilateral lower extremities have been swollen and painful for weeks now. Patient is also complaining of epigastric pain today that has not been associated with any diarrhea but patient does describe constipation. Related Data Home Medications Medication Instructions Recorded Confirmed fenofibrate micronized 134 mg 134 mg PO DAILY 03/16/20 06/03/21 capsule gabapentin 100 mg capsule 100 mg PO BEDTIME 03/16/20 06/03/21 lancets 28 gauge (FreeStyle #100 ea 03/16/20 06/03/21 Lancets) sertraline 50 mg tablet (Zoloft) 50 mg PO DAILY 03/16/20 06/03/21 trazodone 100 mg tablet 100 mg PO BEDTIME PRN Insomnia 03/16/20 06/03/21 solifenacin 5 mg tablet 5 mg PO DAILY 06/22/20 06/03/21 budesonide-formoterol HFA 160 2 puff PO 02/25/21 06/03/21 mcg-4.5 mcg/actuation aerosol inhaler (Symbicort) pantoprazole 20 mg tablet,delayed 20 mg PO DAILY 04/28/21 06/03/21 release acamprosate 333 mg tablet,delayed 666 mg PO TID 06/03/21 06/03/21 release albuterol sulfate 90 mcg/actuation 2 puff PO Q6H PRN 06/03/21 06/03/21 aerosol inhaler (ProAir HFA) fluticasone propionate 50 2 spray intranasal QAM 06/03/21 06/03/21 mcg/actuation nasal spray,suspension blood pressure test kit-large #1 ea 12/01/21 flash glucose scanning reader 12/01/21 ([email or web address] Lakeisha 2 Cataldo) flash glucose sensor (FreeStyle 12/01/21 Lakeisha 2 Sensor kit) losartan 25 mg tablet 25 mg PO QAM 12/01/21 pen needle, diabetic 32 gauge x #50 ea 12/01/21 (BD Ultra-Fine Debbie Pen Needle) Previous Rx's Medication Instructions Recorded blood sugar diagnostic (FreeStyle #150 ea 09/28/20 Test strips) cholecalciferol (vitamin D3) 50 2,000 unit PO DAILY 30 days #30 09/28/20 mcg (2,000 unit) capsule caps pantoprazole 40 mg tablet,delayed 40 mg PO DAILY 30 days #30 tabs 04/28/21 release insulin regular hum U-500 conc 500 See Rx Instructions subcut .Twice 06/03/21 unit/mL(3 mL) subcut pen (Humulin a day 30 days #6 mL R U-500 (Conc) Insulin Kwikpen) blood-glucose meter (FreeStyle #1 ea 06/24/21 Florence Lite kit) atorvastatin 40 mg tablet 40 mg PO BEDTIME #90 tabs 11/25/21 alendronate 70 mg tablet 70 mg PO QWEEK #12 tabs 12/18/21 cephalexin 500 mg capsule 500 mg PO Q12H 5 days #10 caps 12/21/21 Allergies Allergy/AdvReac Type Severity Reaction Status Date / Time cornflower [Cornflower] Allergy Unknown ITCHY Verified 12/20/21 18:31 EYES/HIVES peach [PEACH] Allergy Unknown NATURAL Verified 12/20/21 18:31 FRUIT - MOUTH ITCHES cornell [cherries] Allergy Unknown Verified 12/20/21 18:31 apples Allergy Unknown Unknown Uncoded 12/20/21 18:31 peanut Allergy Unknown Unknown Uncoded 12/20/21 18:31 Review of Systems Review of Systems: Pertinent positives and negatives as stated in HPI 10 point review of systems is otherwise negative. [facility] Past Medical History Source: nursing notes reviewed Medical History Alcohol use Asthma Cirrhosis Diabetes type 2, uncontrolled Diabetic 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 with type 2 diabetes mellitus Dyslipidemia GERD (gastroesophageal reflux disease) History of methadone use Hypertension MCFP (current) use of insulin Non-toxic multinodular goiter Obesity (BMI 30-39.9) Osteoporosis Personal history of nicotine dependence Vitamin D deficiency Surgical History History of bladder surgery (~06/2019) History of colonoscopy (~2016) History of esophagogastroduodenoscopy (EGD) (~2020) Hx of cardiac cath (~12/2015) Hx of cataract extraction Hx of cholecystectomy (~1980) Status post biopsy of thyroid gland Family History Family History Father Esophageal cancer Mother Diabetes mellitus HTN (hypertension) Social History Social History Alcohol intake: current Alcohol intake frequency: 3 or more drinks per day Alcohol type: beer Patient Tobacco Use Status: Former Tobacco user Quit Date: 11/2012 Tobacco use type: Cigarette Years Smoked: Onset 27, 2ppd x 24yrs, 48pyh, quit 11/2012 Advance Directives: Yes Advance Directives on File: Yes Advance Directives Date on File: 11/18/15 Physical Exam Vital Signs: Vital Signs: Last Vital Signs Temp 98.3 F 12/21/21 00:38 Pulse 82 12/21/21 02:00 Resp 18 12/21/21 01:26 BP 148/58 H 12/21/21 02:00 Pulse Ox 93 12/21/21 02:00 O2 Del Method 12/21/21 02:00 BMI result Body Mass Index 31.4 VITAL SIGNS: Reviewed. GENERAL: Well developed, well nourished, in no acute distress. HEAD: Normocephalic/atraumatic EYES: PERRLA, EOMI EARS: Ext canals without abnormality OROPHARYNX: no oral lesions noted, posterior pharynx clear NECK: Supple, no adenopathy LUNGS: Increased work of breathing, no rhonchi or rales noted. SpO2<89> CARDIOVASCULAR: Regular rate and rhythm without noted murmurs, no JVD but bilateral, nonpitting edema ABDOMEN: Soft, epigastric pain, non-distended with bowel sounds. MUSCULOSKELETAL: No tenderness, deformities, or effusions noted on gross inspection. EXTREMITIES: No cyanosis, clubbing but bilateral nonpitting lower extremity edema with symmetrical palpable DP/PT SKIN: Inspection of the skin reveals no rashes NEUROLOGIC: Alert and oriented x 4. Strength and sensation to light touch were grossly intact x 4. Course Course Course Narrative: 61-year-old female with history and clinical presentation consistent with suspected neuropathy there is no evidence to suggest DVT or cellulitis this neuropathy is likely a combination of underlying diabetes as well as liver cirrhosis. Review of all investigations negative for DVT, underlying infection and suspect that this is due to diabetes and liver cirrhosis. Patient did receive a DuoNeb while she was here in the emergency room and responded well and is otherwise more comfortable than on arrival. Patient does have a urinary tract infection for which she will be given antibiotics. She is otherwise discharged home in stable condition. MDM - Extremity (Nontraumatic) Lab Data Result diagrams: 12/20/21 18:37 12/20/21 18:37 Labs: Lab Results 12/20/21 12/20/21 12/20/21 Range/Units 18:37 18:37 18:37 WBC 8.3 (4.8-10.8) X10*3/uL RBC 3.98 L (4.20-5.50) X10*6/uL Hgb 12.6 (12.0-16.0) g/dl Hct 39.4 (37.0-47.0) % MCV 99.0 H (80.0-98.0) fL MCH 31.7 (27.0-33.0) pg MCHC 32.0 (31.0-35.0) g/dl RDW 14.3 (11.0-16.0) % Plt Count 259 D (160-400) X10*3/uL MPV 9.8 (9.4-12.3) fL Immature Gran % (Auto) 0.4 (0.0-0.4) % Neut % (Auto) 57.8 (45-73) % Lymph % (Auto) 31.4 (20-40) % Castro % (Auto) 7.9 (2-11) % Eos % (Auto) 1.9 (0-4) % Baso % (Auto) 0.6 (0-2) % Lymph # (Auto) 2.6 (1.2-4.9) X10*3/uL Castro # (Auto) 0.7 (0.1-1.2) X10*3/uL Eos # (Auto) 0.2 (0.0-0.4) X10*3/uL Baso # (Auto) 0.1 (0.0-0.2) X10*3/uL Abs Immat Gran (auto) 0.03 (0.00-0.03) X10*3/uL Absolute Neuts (auto) 4.8 (2.0-8.3) x10*3/uL Absolute Nucleated RBC 0.000 (0.0-0.012) X10*3/uL Nucleated RBC % (auto) 0.0 (0.0-0.2) /100WBC PT 13.4 H (10.0-13.1) SEC INR 1.2 H (0.9-1.1) APTT 33.0 (26.0-36.4) SEC D-Dimer High Sensitivty < 150 NG/ML Sodium 142 (135-145) mmol/L Potassium 3.7 D (3.3-5.1) mmol/L Chloride 101 (96-108) mmol/L Carbon Dioxide 29 (22-29) mmol/L Anion Gap 16 (12-20) BUN 8 L (9-16) mg/dL Creatinine 0.76 (0.5-1.4) mg/dL Estim Creat Clear Calc 73.3 Estimated GFR > 60 POC Glucose (60-115) mg/dL Random Glucose 77 (60-115) mg/dL Calcium 9.7 (8.4-10.2) mg/dL Total Bilirubin 0.8 (0.0-1.0) mg/dL Direct Bilirubin 0.4 (0.0-0.5) mg/dL AST 51 H (5-31) U/L ALT 26 (0-31) U/L Alkaline Phosphatase 55 D (39-117) U/L Total Protein 8.4 H (6.5-8.0) g/dL Albumin 4.4 (3.5-5.0) g/dL Lipase 7 L (8-78) U/L Urine Color Urine Appearance Urine pH (5.0-9.0) Ur Specific [place] (1.005-1.025) Urine Protein (Neg-Trace) mg/dL Urine Glucose (UA) (Negative) mg/dL Urine Ketones (Negative) mg/dL Urine Blood (Negative) Urine Nitrite (Negative) Ur Leukocyte Esterase (Negative) Urine RBC (0-2) /HPF Urine WBC (0-5) /HPF Ur Squamous Epith Cells (0-2) /HPF Urine Bacteria (None Seen) Hyaline Casts (0-2) /LPF Ethyl Alcohol mg/dL COVID-19 ([facility]) (Negative) COVID-19 Clin Com 12/20/21 12/20/21 12/20/21 Range/Units 18:37 18:37 18:37 WBC (4.8-10.8) X10*3/uL RBC (4.20-5.50) X10*6/uL Hgb (12.0-16.0) g/dl Hct (37.0-47.0) % MCV (80.0-98.0) fL MCH (27.0-33.0) pg MCHC (31.0-35.0) g/dl RDW (11.0-16.0) % Plt Count (160-400) X10*3/uL MPV (9.4-12.3) fL Immature Gran % (Auto) (0.0-0.4) % Neut % (Auto) (45-73) % Lymph % (Auto) (20-40) % Castro % (Auto) (2-11) % Eos % (Auto) (0-4) % Baso % (Auto) (0-2) % Lymph # (Auto) (1.2-4.9) X10*3/uL [place] # (Auto) (0.1-1.2) X10*3/uL Eos # (Auto) (0.0-0.4) X10*3/uL Baso # (Auto) (0.0-0.2) X10*3/uL Abs Immat Gran (auto) (0.00-0.03) X10*3/uL Absolute Neuts (auto) (2.0-8.3) x10*3/uL Absolute Nucleated RBC (0.0-0.012) X10*3/uL Nucleated RBC % (auto) (0.0-0.2) /100WBC PT (10.0-13.1) SEC INR (0.9-1.1) APTT Cancelled (26.0-36.4) SEC D-Dimer High Sensitivty NG/ML Sodium (135-145) mmol/L Potassium (3.3-5.1) mmol/L Chloride (96-108) mmol/L Carbon Dioxide (22-29) mmol/L Anion Gap (12-20) BUN (9-16) mg/dL Creatinine (0.5-1.4) mg/dL Estim Creat Clear Calc Estimated GFR POC Glucose (60-115) mg/dL Random Glucose (60-115) mg/dL Calcium (8.4-10.2) mg/dL Total Bilirubin (0.0-1.0) mg/dL Direct Bilirubin (0.0-0.5) mg/dL AST (5-31) U/L ALT (0-31) U/L Alkaline Phosphatase (39-117) U/L Total Protein (6.5-8.0) g/dL Albumin (3.5-5.0) g/dL Lipase (8-78) U/L Urine Color Urine Appearance Urine pH (5.0-9.0) Ur Specific [place] (1.005-1.025) Urine Protein (Neg-Trace) mg/dL Urine Glucose (UA) (Negative) mg/dL Urine Ketones (Negative) mg/dL Urine Blood (Negative) Urine Nitrite (Negative) Ur Leukocyte Esterase (Negative) Urine RBC (0-2) /HPF Urine WBC (0-5) /HPF Ur Squamous Epith Cells (0-2) /HPF Urine Bacteria (None Seen) Hyaline Casts (0-2) /LPF Ethyl Alcohol < 10 mg/dL COVID-19 ([facility]) Negative (Negative) COVID-19 Clin Com See Note 12/21/21 12/21/21 12/21/21 Range/Units 01:04 01:19 02:11 WBC (4.8-10.8) X10*3/uL RBC (4.20-5.50) X10*6/uL Hgb (12.0-16.0) g/dl Hct (37.0-47.0) % MCV (80.0-98.0) fL MCH (27.0-33.0) pg MCHC (31.0-35.0) g/dl RDW (11.0-16.0) % Plt Count (160-400) X10*3/uL MPV (9.4-12.3) fL Immature Gran % (Auto) (0.0-0.4) % Neut % (Auto) (45-73) % Lymph % (Auto) (20-40) % Castro % (Auto) (2-11) % Eos % (Auto) (0-4) % Baso % (Auto) (0-2) % Lymph # (Auto) (1.2-4.9) X10*3/uL [place] # (Auto) (0.1-1.2) X10*3/uL Eos # (Auto) (0.0-0.4) X10*3/uL Baso # (Auto) (0.0-0.2) X10*3/uL Abs Immat Gran (auto) (0.00-0.03) X10*3/uL Absolute Neuts (auto) (2.0-8.3) x10*3/uL Absolute Nucleated RBC (0.0-0.012) X10*3/uL Nucleated RBC % (auto) (0.0-0.2) /100WBC PT (10.0-13.1) SEC INR (0.9-1.1) APTT (26.0-36.4) SEC D-Dimer High Sensitivty NG/ML Sodium (135-145) mmol/L Potassium (3.3-5.1) mmol/L Chloride (96-108) mmol/L Carbon Dioxide (22-29) mmol/L Anion Gap (12-20) BUN (9-16) mg/dL Creatinine (0.5-1.4) mg/dL Estim Creat Clear Calc Estimated GFR POC Glucose 52 L* 119 H (60-115) mg/dL Random Glucose (60-115) mg/dL Calcium (8.4-10.2) mg/dL Total Bilirubin (0.0-1.0) mg/dL Direct Bilirubin (0.0-0.5) mg/dL AST (5-31) U/L ALT (0-31) U/L Alkaline Phosphatase (39-117) U/L Total Protein (6.5-8.0) g/dL Albumin (3.5-5.0) g/dL Lipase (8-78) U/L Urine Color Yellow Urine Appearance Clear Urine pH 7.5 (5.0-9.0) Ur Specific [place] 1.010 (1.005-1.025) Urine Protein Negative (Neg-Trace) mg/dL Urine Glucose (UA) Negative (Negative) mg/dL Urine Ketones Negative (Negative) mg/dL Urine Blood Negative (Negative) Urine Nitrite Negative (Negative) Ur Leukocyte Esterase Large (3+) H (Negative) Urine RBC 0-2 (0-2) /HPF Urine WBC 21-50 H (0-5) /HPF Ur Squamous Epith Cells 11-20 (0-2) /HPF Urine Bacteria 2+ (None Seen) Hyaline Casts 0-2 (0-2) /LPF Ethyl Alcohol mg/dL COVID-19 ([facility]) (Negative) COVID-19 Clin Com Discharge Plan Discharge Clinical Impression: Alcohol dependence, Cirrhosis of liver, UTI (urinary tract infection), Lymphedema Patient Disposition: Home, Self-Care Instructions: Cirrhosis (ED), Urinary Tract Infection in Women (ED), Lymphedema (ED), Alcohol Dependence (ED) Additional Instructions: 1. Resume all home medications as prescribed. 2. Complete the entire course of antibiotics for your urinary tract infection as prescribed. 3. Please follow-up with your primary care provider in the next 1-2 days for re-evaluation and further outpatient management. Return to the ER for worsening symptoms. Prescriptions: New cephalexin 500 mg capsule 500 mg PO Q12H 5 Days Qty: 10 0RF No Action (DME) blood-glucose meter [FreeStyle [place] Lite] Kit See Rx Instructions .Route Qty: 1 0RF Rx Instructions: As directed atorvastatin 40 mg tablet 40 mg PO BEDTIME Qty: 90 1RF alendronate 70 mg tablet 70 mg PO QWEEK Qty: 12 1RF budesonide-formoterol [Symbicort] 160-4.5 mcg/actuation HFA aerosol inhaler 2 puff PO (DME) lancets [FreeStyle Lancets] 28 gauge misc See Rx Instructions .ROUTE .MEDSUPPLY Qty: 100 Rx Instructions: As directed fenofibrate micronized 134 mg capsule 134 mg PO DAILY gabapentin 100 mg capsule 100 mg PO BEDTIME sertraline [Zoloft] 50 mg tablet 50 mg PO DAILY trazodone 100 mg tablet 100 mg PO BEDTIME PRN (Reason: Insomnia) solifenacin 5 mg tablet 5 mg PO DAILY (DME) FreeStyle Test Strip See Rx Instructions .ROUTE .MEDSUPPLY Qty: 150 6RF Rx Instructions: 4 times a day cholecalciferol (vitamin D3) 50 mcg (2,000 unit) capsule 2,000 unit PO DAILY 30 Days Qty: 30 2RF acamprosate 333 mg tablet,delayed release (DR/EC) 666 mg PO TID fluticasone propionate 50 mcg/actuation spray,suspension 2 spray intranasal QAM albuterol sulfate [ProAir HFA] 90 mcg/actuation HFA aerosol inhaler 2 puff PO Q6H PRN Humulin R U-500 (Conc) Kwikpen 500 unit/mL (3 mL) insulin pen See Rx Instructions subcut .Twice a day 30 Days Qty: 6 6RF Rx Instructions: 120 units before breakfast and 40 units before dinner subcut .Twice a day; pantoprazole 20 mg tablet,delayed release (DR/EC) 20 mg PO DAILY pantoprazole 40 mg tablet,delayed release (DR/EC) 40 mg PO DAILY 30 Days Qty: 30 3RF (DME) FreeStyle Lakeisha 2 Sensor Kit See Rx Instructions .Route Rx Instructions: every 14 days (DME) FreeStyle Lakeisha 2 Cataldo Misc See Rx Instructions .Route Rx Instructions: As directed losartan 25 mg tablet 25 mg PO QAM (DME) pen needle, diabetic [BD Ultra-Fine Debbie Pen Needle] 32 gauge x 5/32 needle See Rx Instructions .ROUTE BID Qty: 50 Rx Instructions: As directed (DME) blood pressure test kit-large Kit See Rx Instructions .ROUTE DIRECTED Qty: 1 Rx Instructions: As directed
[2021-12-21 01:26] VITALS: PULSE 74; RESP 18; O2SAT 93
[2021-12-21] MEDS: Albuterol/Iprat 2.5/0.5MG 3 ML AMPUL.NEB INHALE (01:26)
[2021-12-21 01:28] LABS: Bacteria Urine 2+ (None Seen); Hyaline Casts Urine 0-2 /LPF (0-2); RBC Urine 0-2 /HPF (0-2); UACC Culture Trigger YES; WBC Urine 21-50 /HPF (0-5)
[2021-12-21 02:00] VITALS: BP 148/58; PULSE 82; O2SAT 93
[2021-12-21 02:23] LABS: Glucose, Whole Blood 119 mg/dL (60-115)
[2021-12-21] MEDS: Lidocaine HCl Viscous 2 % 15 ML SOLUTION 10 ML MUCOUS MEM (02:49)
[2021-12-21] MEDS: Magnesium Hydrox/Alum Hydrox 30 ML ORAL.SUSP PO (02:49)
[2021-12-21] MEDS: cephALEXin 500 MG CAPSULE PO (02:54)
[2021-12-21 04:00] VITALS: BP 107/55; PULSE 82; O2SAT 93
[2021-12-21 06:00] VITALS: BP 135/57; PULSE 67; O2SAT 91
== END 2021-12-21 07:10 | disposition home or self-care (01) ==
PROVIDERS: Emergency Provider Student in an Organized Health Care Education/Training Program
DX: F10.20 Alcohol dependence, uncomplicated (principal); Y90.0 Blood alcohol level of less than 20 mg/100 ml; K70.30 Alcoholic cirrhosis of liver without ascites; N39.0 Urinary tract infection, site not specified; R06.02 Shortness of breath; R60.0 Localized edema; Z20.822 Contact with and (suspected) exposure to COVID-19; Z79.899 Other long term (current) drug therapy; Z87.891 Personal history of nicotine dependence
CPT/HCPCS: 36415; 71045; 74176; 80048; 80076; 81001; 82077; 82947; 83690; 85025; 85379; 85610; 85730; 87086; 87635; 93970; 94640; 99284; 99285

== ENCOUNTER → 2021-12-22 08:56 | Outpatient (BNVA) | payer MEDICAID, SELFPAY | PROVIDERS: Visit Provider Registered Nurse Diabetes Educator | DX: E11.21 Type 2 diabetes mellitus with diabetic nephropathy (principal) | CPT/HCPCS: 99211 ==

== ENCOUNTER → 2022-01-11 09:45 | Outpatient (BNVA) | payer MEDICAID, SELFPAY | PROVIDERS: Visit Provider Registered Nurse Diabetes Educator | DX: E11.65 Type 2 diabetes mellitus with hyperglycemia (principal) | CPT/HCPCS: 99211 ==

== ENCOUNTER → 2022-03-23 10:57 | Outpatient (BNVA) | payer MEDICAID, SELFPAY | PROVIDERS: Visit Provider Surgery Vascular Surgery | DX: I83.12 Varicose veins of left lower extremity with inflammation (principal) | CPT/HCPCS: 99202 ==

== ENCOUNTER 2022-04-04 09:54 | Outpatient (REF) | payer MEDICAID, SELFPAY ==
[2022-04-04 11:05] LABS: Microalbumin Urine < 5.0 mg/L
[2022-04-09 14:18] LABS: N-Telopeptide 36 (see note); NTXCreaRU 30 mg/dL (20-275)
== END 2022-04-04 09:55 | disposition home or self-care (01) ==
LOC: HO.LAB 09:54
PROVIDERS: PCP Internal Medicine; Visit Provider Internal Medicine Endocrinology, Diabetes & Metabolism
DX: E11.65 Type 2 diabetes mellitus with hyperglycemia (principal); M81.0 Age-related osteoporosis without current pathological fracture
CPT/HCPCS: 82043; 82523

== ENCOUNTER → 2022-04-20 08:37 | Outpatient (BNVA) | payer MEDICAID, SELFPAY | PROVIDERS: Visit Provider Internal Medicine Endocrinology, Diabetes & Metabolism | DX: E11.65 Type 2 diabetes mellitus with hyperglycemia (principal); E04.2 Nontoxic multinodular goiter; M81.0 Age-related osteoporosis without current pathological fracture; Z79.4 Long term (current) use of insulin | CPT/HCPCS: 82947; 83036; 99212 ==

== ENCOUNTER 2022-04-28 10:16 | Outpatient (REF) | payer MEDICAID, SELFPAY ==
--- NOTE | ~2022-04-28 | US_ITS ---
EXAMINATION: US LOWER EXTREMITY VENOUS (REFLUX EXAM), BILATERAL CLINICAL INDICATION: Chronic venous insufficiency COMPARISON: None. TECHNIQUE: Color flow triplex imaging and compression Doppler was performed to evaluate both the deep and the superficial systems bilaterally. To evaluate the superficial system, the examination was performed in the upright position. Color-flow Doppler ultrasound and compression ultrasound were utilized. In addition, maneuvers were utilized to demonstrate reflux. FINDINGS: 1. DEEP VENOUS ULTRASOUND OF THE RIGHT LOWER EXTREMITY: Common Femoral Vein: Compressible, normal respiratory variation and augmented flow. Femoral Vein: Compressible, normal color flow and augmentation. Popliteal Vein: Compressible, normal augmentation. Deep Reflux: There is no evidence of reflux in the deep system in either the common femoral vein or the popliteal vein. There is no evidence of a Collier's cyst. 2. SUPERFICIAL ULTRASOUND WITH DOPPLER OF RIGHT LOWER EXTREMITY: GREAT SAPHENOUS VEIN: Saphenofemoral Junction: 0.7 cm; Reflux: 0 ms Proximal Thigh: 0.7 cm; Reflux: 0 ms Mid Thigh: 0.3 cm; Reflux: 0 ms Above Knee: 0.3 cm; Reflux: 0 ms At Knee: 0.3 cm; Reflux: 0 ms Below Knee: 0.3 cm; Reflux: 616 ms Mid Calf: 0.2 cm; Reflux: 0 ms Ankle: 0.2 cm; Reflux: 0 ms DUPLICATED MEDIAL GREAT SAPHENOUS VEIN: Diameter: None Imaged Reflux: NA DUPLICATED LATERAL GREAT SAPHENOUS VEIN: Diameter: 0.3 cm Reflux: None SMALL SAPHENOUS VEIN: Proximal: 0.5 cm; Reflux: 0 ms Distal: 0.1 cm; Reflux: 0 ms VEIN OF GIACOMINI: None Imaged. PERFORATORS: Location: Proximal calf Size: 0.2 cm Reflux: None VARICOSITIES: Location: Proximal calf off the gastrocnemius vein Size: 0.5 cm Reflux: None 3. DEEP VENOUS ULTRASOUND OF THE LEFT LOWER EXTREMITY: Common Femoral Vein: Compressible, normal respiratory variation and augmented flow. Femoral Vein: Compressible, normal color flow and augmentation. Popliteal Vein: Compressible, normal augmentation. Deep Reflux: There is no evidence of reflux in the deep system in either the common femoral vein or the popliteal vein. There is no evidence of a Collier's cyst. 4. SUPERFICIAL ULTRASOUND WITH DOPPLER OF LEFT LOWER EXTREMITY: GREAT SAPHENOUS VEIN: Saphenofemoral Junction: 1.1 cm; Reflux: 0 ms Proximal Thigh: 0.4 cm; Reflux: 0 ms Mid Thigh: 0.3 cm; Reflux: 0 ms Above Knee: 0.3 cm; Reflux: 0 ms At Knee: 0.3 cm; Reflux: 0 ms Below Knee: 0.4 cm; Reflux: 0 ms Mid Calf: 0.3 cm; Reflux: 0 ms Ankle: 0.3 cm; Reflux: 0 ms DUPLICATED MEDIAL GREAT SAPHENOUS VEIN: Diameter: None Imaged Reflux: NA DUPLICATED LATERAL GREAT SAPHENOUS VEIN: Diameter: 0.5 cm Reflux: None SMALL SAPHENOUS VEIN: Proximal: 0.1 cm; Reflux: 0 ms Distal: 0.2 cm; Reflux: 0 ms VEIN OF GIACOMINI: None Imaged. PERFORATORS: Location: Proximal calf Size: 0.3 cm Reflux: 640 ms VARICOSITIES: Location: Knee and proximal calf Size: 0.3 to 0.4 cm Reflux: 572 ms US/US venous duplex LE BI IMPRESSION: Right: Focal mild to moderate reflux in the right great saphenous vein within the proximal calf. No significant venous insufficiency or reflux otherwise. Varicose vein in the proximal calf as described above Left: No significant reflux in the left great saphenous vein and small saphenous vein. 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
== END 2022-04-28 10:17 | disposition home or self-care (01) ==
LOC: HO.US 10:16
PROVIDERS: Visit Provider Surgery Vascular Surgery
DX: I83.11 Varicose veins of right lower extremity with inflammation (principal); I83.12 Varicose veins of left lower extremity with inflammation
CPT/HCPCS: 93970

== ENCOUNTER → 2022-05-04 13:30 | Outpatient (BNVA) | payer MEDICAID, SELFPAY | PROVIDERS: Visit Provider Surgery Vascular Surgery | DX: I83.12 Varicose veins of left lower extremity with inflammation (principal) | CPT/HCPCS: 99212 ==

== ENCOUNTER 2022-05-17 08:26 | Outpatient (REF) | payer MEDICAID, SELFPAY ==
--- NOTE | ~2022-05-17 | US_ITS ---
EXAMINATION: US THYROID CLINICAL INFORMATION: Nontoxic multinodular goiter. COMPARISON: Ultrasound thyroid 06/30/2020 and 12/26/2018. US-guided thyroid biopsy 10/16/2017. CT soft tissue neck with contrast 07/31/2017. TECHNIQUE: Linear transducer grayscale and color Doppler examination with attention to the region of the thyroid. FINDINGS: SIZE: Measurements of the thyroid lobes and nodules are given in sagittal, anteroposterior and transverse dimensions respectively. Right Thyroid Lobe: 2.3 x 1.0 x 0.8 cm, volume 1.0 mL. Previously 2.9 x 0.8 x 0.9 cm, volume 1.0 mL. Parenchyma: The gland echotexture is homogeneous. Thyroid vascularity is normal. Left Thyroid Lobe: 5.6 x 2.7 x 2.3 cm, volume 18.2 mL. Previously 4.6 x 2.7 x 2.4 cm, volume 15.7 mL. Parenchyma: The gland echotexture is heterogeneous. Thyroid vascularity is normal. Isthmus: 0.3 cm in maximum AP dimension. Previously 0.2 cm. Estimated total number of nodules greater than or equal to 1 cm: 1. Attic Blower nodules are described as follows: 1. Location: Left mid. Size: 3.3 x 2.7 x 2.2 cm, volume 10.3 mL. Previously: 3.1 x 2.7 x 2.0 cm, volume 8.8 mL. Nodule characteristics: Composition: Mixed cystic and solid (1). Echogenicity: Hypoechoic (2). Shape: Not taller than wide (0). Margins: Ill-defined (0). Echogenic Foci: Punctate echogenic foci (3). ACR TI-RADS total points: 6 Previous: 8 ACR TI-RADS category: 4 Previous: 5 Significant change in size (>/= 20% in 2 dimensions and minimal increase of 2 mm or 50% or greater increase in volume): None Change in features: None Change in ACR TI-RADS risk category: None NODES: No lymphadenopathy is seen in the tissue surrounding the thyroid gland. US/US thyroid IMPRESSION: 1. Large left thyroid lobe nodule. The right thyroid lobe is atrophic. 2. Solitary suspicious nodule right lobe, stable. TR1 (0 point) and TR 2 (2 points): TR4 (4-6 points): FNA if more than or equal to 1.5 cm in maximum dimension, followup ultrasound in 1, 2, 3 and 5 years if 1 to 1.4 cm in maximum dimension. TR5 (more than or equal to 7 points): FNA if more than or equal to 1 cm in maximum dimension, followup ultrasound every year for 5 years if 0.5 to 0.9 cm in maximum dimension.
== END 2022-05-17 08:27 | disposition home or self-care (01) ==
LOC: HO.US 08:26
PROVIDERS: Visit Provider Internal Medicine Endocrinology, Diabetes & Metabolism
DX: E04.2 Nontoxic multinodular goiter (principal)
CPT/HCPCS: 76536

== ENCOUNTER 2022-05-24 13:55 | Outpatient (REF) | payer MEDICAID, SELFPAY ==
--- NOTE | ~2022-05-24 | MM_ITS ---
EXAMINATION: MM SCREENING DIGITAL BREAST TOMOSYNTHESIS, BILATERAL CLINICAL INFORMATION: Screening. Asymptomatic. Family history breast cancer, sister. The lifetime risk of breast cancer based on the Tyrer-Cuzick Model is 10%. COMPARISON: Mammography: 05/23/2021, 02/19/2018, 02/17/2017 TECHNIQUE: Digital breast tomosynthesis is performed in both the craniocaudal and mediolateral oblique views along with computer-aided detection (CAD). Synthesized 2D images are generated from the tomosynthesis. FINDINGS: There are scattered areas of fibroglandular density (ACR BI-RADS breast composition Category b). There are no significant masses, abnormal calcifications, or other abnormalities. No architectural abnormality or developing density or significant change from prior studies. There are scattered bilateral ductal secretory calcifications. The axilla and skin contours are unremarkable. MM/MM tomosynthesis screening BI IMPRESSION: No mammographic evidence of malignancy. ASSESSMENT: BI-RADS 2: Benign RECOMMENDATION: Routine annual mammography screening. This patient's information was entered into a reminder system with a target due date for their next mammogram.
== END 2022-05-24 13:56 | disposition home or self-care (01) ==
LOC: HO.MAMMO 13:55
PROVIDERS: PCP Internal Medicine; Visit Provider Internal Medicine
DX: Z12.31 Encounter for screening mammogram for malignant neoplasm of breast (principal)
CPT/HCPCS: 77063; 77067

== ENCOUNTER → 2022-08-16 09:27 | Outpatient (BNVA) | payer MEDICAID, SELFPAY | PROVIDERS: Visit Provider Registered Nurse Diabetes Educator | DX: E11.65 Type 2 diabetes mellitus with hyperglycemia (principal); Z79.4 Long term (current) use of insulin | CPT/HCPCS: 99211 ==

== ENCOUNTER 2022-10-26 08:36 | Outpatient (REF) | payer MEDICAID, SELFPAY ==
[2022-10-26 11:22] LABS: MANUAL DIFF FLAG NO
[2022-10-26 11:38] LABS: Partial Thromboplastin Time 27.6 SEC (26.0-36.4)
[2022-10-26 11:53] LABS: Basophils Percent Auto 0.3 % (0-2); Eosinophils Absolute Auto 0.1 X10*3/uL (0.0-0.4); Eosinophils Percent Auto 1.5 % (0-4); Hematocrit 34.8 % (37.0-47.0); Imm Gran Abs Auto 0.02 X10*3/uL (0.00-0.03); Imm Gran Pct Auto 0.3 % (0.0-0.4); Lymphocytes Absolute Auto 1.5 X10*3/uL (1.2-4.9); Lymphocytes Percent Auto 25.1 % (20-40); Mean Corpuscular HGB Conc 28.7 g/dl (31.0-35.0); Mean Corpuscular Hemoglobin 24.2 pg (27.0-33.0); Mean Corpuscular Volume 84.1 fL (80.0-98.0); Mean Platelet Volume 11.2 fL (9.4-12.3); Monocytes Absolute Auto 0.3 X10*3/uL (0.1-1.2); Monocytes Percent Auto 5.4 % (2-11); Neutrophils Percent Auto 67.4 % (45-73); Platelet Count 286 X10*3/uL (160-400); Red Blood Count 4.14 X10*6/uL (4.20-5.50)
[2022-10-26 14:19] LABS: Estimated Average Glucose 180 mg/dL; Hemoglobin A1c % 7.9 %
[2022-10-26 14:21] LABS: Alanine Aminotransferase 26 U/L (0-31); Albumin Level 4.1 g/dL (3.5-5.0); Alkaline Phosphatase 47 U/L (39-117); Anion Gap 17 (12-20); Aspartate Amino Transferase 41 U/L (5-31); Bilirubin Total 0.6 mg/dL (0.0-1.0); Blood Urea Nitrogen 8 mg/dL (9-16); Carbon Dioxide 27 mmol/L (22-29); Chloride 101 mmol/L (96-108); Cholesterol 126 mg/dL; Estimated Glomerular Filt Rate > 60; Glucose Random 259 mg/dL (60-115); HDL Cholesterol 32 mg/dL; LDL Cholesterol Calculated 66 mg/dl; Potassium 3.7 mmol/L (3.3-5.1); Sodium 141 mmol/L (135-145); TSH reflex Free T4 0.78 uIU/mL (0.32-4.0); Total Protein 7.8 g/dL (6.5-8.0); Triglycerides 144 mg/dL
[2022-10-26 14:32] LABS: Creatinine Urine 32.76 mg/dL; Microalbumin Urine < 5.0 mg/L
[2022-10-26 15:49] LABS: Folate 7.7 ng/mL (> or = 4.0); Vitamin B12 341 pg/mL (200-900)
[2022-10-26 18:41] LABS: CT PCR NOT DETECTED (Not Detect.); NG PCR NOT DETECTED (Not Detect.)
[2022-10-27 08:25] LABS: Syphilis Screen Nonreactive (Nonreactive)
[2022-10-27 08:30] LABS: ~HepC Num1 0.23 S/CO (0.00-0.79); ~Hepatitis C Antibody Nonreactive (Nonreactive)
[2022-10-27 08:44] LABS: HBS Num1 15.27 mIU/mL (0-7.99); HBc Num1 0.13 S/CO (0.00-0.79); HBsAGNum1 0.37 S/CO (0.00-0.99); HIV AB/AG Nonreactive (Nonreactive); HIV Num 1 0.08 S/CO (0.00-0.99); Hepatitis B Core Antibody Nonreactive (Nonreactive); Hepatitis B Surface Antigen Negative (Negative); ~Hepatitis B Surface Antibody REACTIVE (Nonreactive)
[2022-10-29 00:44] LABS: TS Negative Control Passed; TS Panel A 0; TS Panel B 0; TS Positive Control Passed; TSpotTB Negative (Negative)
[2022-11-03 12:04] LABS: VITAMIN D (1,25 OH) D3 34 pg/mL; Vit D (1,25-Dihydroxy) Total 34 pg/mL (18-72); Vitamin D (1,25 OH) D2 <8 pg/mL
== END 2022-10-26 08:37 | disposition home or self-care (01) ==
LOC: HO.HHCL 08:36
PROVIDERS: Visit Provider Student in an Organized Health Care Education/Training Program
DX: Z00.00 Encounter for general adult medical examination without abnormal findings (principal); Z11.4 Encounter for screening for human immunodeficiency virus [HIV]; K70.30 Alcoholic cirrhosis of liver without ascites
CPT/HCPCS: 0353U; 80053; 80061; 82043; 82607; 82652; 82746; 83036; 84443; 85025; 85610; 85730; 86481; 86704; 86706; 86780; 86803; 87340; 87389

== ENCOUNTER 2022-11-15 09:11 | Outpatient (REF) | payer MEDICAID, SELFPAY ==
--- NOTE | ~2022-11-15 | US_ITS ---
EXAMINATION: US COMPLETE ABDOMEN WITH LIVER ELASTOGRAPHY CLINICAL INFORMATION: History of liver cirrhosis. COMPARISON: None available. TECHNIQUE: Real-time imaging of the abdominal viscera. Noninvasive ultrasound liver fibrosis assessment is performed using Thomas ElastPQ point quantification shear wave elastography (2D-SWE) with a C5-2 MHz transducer. Multiple elastography samples are obtained. FINDINGS: PANCREAS: The visualized pancreatic head and body are normal in appearance. The remainder of the pancreas is obscured from visualization by the overlying bowel gas. ABDOMINAL AORTA: The proximal, middle, and distal aortic segments are normal in caliber. INFERIOR VENA CAVA: Visualized portions are normal. LIVER: The liver demonstrates normal size, contour and increased echogenicity. No focal lesion or intrahepatic biliary duct dilatation. The right lobe measures 17.9 cm in length. The left lobe measures 15.6 cm in length. Portal flow is hepatopedal. Shear wave liver elastography median stiffness is 1.25 m/s (reference: normal median stiffness is 1.3 m/s or less). IQR/median stiffness to assess sampling precision is 0.07 (reference: good quality data set is IQR/median stiffness of 0.15 or less). GALLBLADDER: The gallbladder has been surgically removed. COMMON BILE DUCT: Normal in caliber measuring 1.2 cm in diameter. RIGHT KIDNEY: Normal. No hydronephrosis. No renal calculi or focal parenchymal lesions. The kidney measures 11.9 cm in maximum dimension. LEFT KIDNEY: Normal. No hydronephrosis. No renal calculi or focal parenchymal lesions. The kidney measures 12.1 cm in maximum dimension. SPLEEN: The spleen is enlarged. There are several echogenic lesions in the spleen most likely small hemangiomas. The largest hemangioma measures 1.3 x 1.6 x 1.6 cm. The spleen measures 13.3 cm in maximum dimension. FREE FLUID: None. US/US abdomen comp w elastography IMPRESSION: 1. Mild hepatic steatosis without focal lesion. Cholecystectomy. No CBD ductal dilatation. Several echogenic splenic lesions likely hemangioma. Median liver stiffness measures 1.25 m/s corresponding to high probability normal. 2. Liver elastography: Median liver stiffness measures 1.25 m/is corresponding to high probability normal. REFERENCE: Society of Radiologists in Ultrasound Liver Stiffness Thresholds (2020): LIVER STIFFNESS THRESHOLDS: *Liver Stiffness equal or less than 1.3 m/s: High probability of being normal. *Liver Stiffness less than 1.7 m/s: In the absence of other known clinical signs, rules out compensated advanced chronic liver disease. *Liver Stiffness 1.7-2.1 m/s: Suggestive of compensated advanced chronic liver disease but need further test for confirmation. *Liver Stiffness over 2.1 m/s: Rules in compensated advanced chronic liver disease. *Liver Stiffness over 2.4 m/s: Suggestive of clinically significant portal hypertension. QUALITY OF DATA SET: *IQR/Median value equal or less than 0.15 implies a quality data set. *IQR/Median value over 0.15 implies a poor quality data set. SIGNIFICANT CHANGE FROM PRIOR EXAM: Significant change if liver stiffness measurement is 10% or greater from prior exam. OTHER CONSIDERATIONS: The stage of liver fibrosis may be overestimated in the setting of acute hepatitis, liver inflammation, elevated liver function tests, hepatic vascular congestion, obstructive cholestasis, non-fasting state, and infiltrative diseases such as amyloidosis and lymphoma. In some patients with NAFLD, the liver stiffness thresholds for compensated advanced chronic liver disease may be lower. In causes other than viral hepatitis and NAFLD, liver stiffness thresholds are not well established.
== END 2022-11-15 09:12 | disposition home or self-care (01) ==
LOC: HO.US 09:11
PROVIDERS: PCP Student in an Organized Health Care Education/Training Program; Visit Provider Student in an Organized Health Care Education/Training Program
DX: K70.30 Alcoholic cirrhosis of liver without ascites (principal)
CPT/HCPCS: 76705; 76981

== ENCOUNTER 2022-11-23 10:22 | Outpatient (AMB) | payer MEDICAID, SELFPAY ==
--- NOTE | 2022-11-23 10:28 | MHC.OFFVIS ---
Intake Vital Signs 11/23/22 10:38 Height 5 ft 2 in Weight 177 lb 0.499 oz BMI 32.4 BP 106/52 L Blood Pressure Location Rt brachial Position Sitting Pulse 65 Pulse Source Pulse Oximeter Intake Visit Reasons: DM2 Intake Note: Patient presents today for for Type 2 Diabetes Mellitus. Last Diabetic Eye exam: 10/2022 Last Podiatry Visit: None Random Glucose:237 mg/dl HgA1C: 7.9% Telecom Assistant Required: Yes Telecom Assistant Language: Traffic Engineering Technician Name: Vivian Medical Staff Information Interpreted: non-clinical & clinical Accompanied by: Spouse Allergies cornflower [Cornflower] Allergy (Unknown, Verified 11/23/22 10:35) ITCHY EYES/HIVES peach [PEACH] Allergy (Unknown, Verified 11/23/22 10:35) NATURAL FRUIT - MOUTH ITCHES cornell [cherries] Allergy (Verified 11/23/22 10:35) Unknown apples Allergy (Unknown, Uncoded 04/20/22 08:47) Unknown peanut Allergy (Unknown, Uncoded 04/20/22 08:47) Unknown HPI HPI Comments History of Present Illness Details 61 yo female today for fup visit, for diabetes management and MNG She is feeling well she has no complaints today. She is currently on Humulin U 500 to 220 units for breakfast Actually taking U-500 beford dinner still Lakeisha download shows CGMS active 55% of the time. GMI of 9.5 Average glucose is 259. 20% in target range 25 % high at 75% very hyperglycemic and0% hypoglycemic . Pattern shows increases from 03:00 to 09:00. Rare hypoglycemia She has diabetes mellitus type 2 diagnosed on August 29, 2007. 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 Complications: no retinopathy, + nephropathy, no neuropathy, CVA, CAD, PVD. Metformin was stopped due to diarrhea. Which is resolved after stopping the medication. last saw 2 yrs ago has cataracts , no note available. Needs to make appt with optho . Denies polyuria, polydipsia, polyuria. Weight is stable. Date of Service: 06/30/20 THYROID Right Thyroid Lobe: 2.9 x 0.8 x 0.9 cm, volume 1.0 mL. Previously 3.5 x 1.1 x 0.8 cm, volume 1.6 mL. Parenchyma: The gland echotexture is homogeneous. Thyroid vascularity is normal. Left Thyroid Lobe: 4.6 x 2.7 x 2.4 cm, volume 15.7 mL. Previously 4.2 x 2.4 x 2.3 cm, volume 11.7 mL. Parenchyma: The gland echotexture is heterogeneous. Thyroid vascularity is normal. Isthmus: 0.2 cm in maximum AP dimension. Previously 0.2 cm. Estimated total number of nodules greater than or equal to 1 cm: 1. 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 Location: Left. Size: 3.1 x 2.0 x 2.7 cm, volume 8.8 mL. Previously: 3.3 x 2.4 x 2.3 cm, volume 9.7 mL. Nodule characteristics: Composition: Solid/almost completely solid (2). Echogenicity: Hypoechoic (2). Shape: Taller than wide (3). Margins: Smooth (0). Echogenic Foci: Macrocalcifications (1). ACR TI-RADS total points: 8 ACR TI-RADS category: 5 Significant change in size (>/= 20% in 2 dimensions and minimal increase of 2 mm or 50% or greater increase in volume): Minimal decrease in the volume. Change in features: None. Change in ACR TI-RADS risk category: None. Also visualized is a tiny cyst in the right lobe. NODES: No lymphadenopathy is seen in the tissue surrounding the thyroid gland. She had fine-needle aspiration on 10/16/2017 of left mid thyroid dominant nodule. Was consistent with benign follicular nodule, [place] category 2 01/07/19 DEXA scan AP SPINE L1-L4: BMD 0.905 g/cm2, Z-score -1.4, T-score -2.3, osteopenia. LEFT FEMUR, NECK: BMD 0.657 g/cm2, Z-score -1.7, T-score -2.7, osteoporosis. LEFT FEMUR, TOTAL: BMD 0.756 g/cm2, Z-score -1.3, T-score -2.0, osteopenia. Is taking alendronate 70 mg q wkly . Patient has osteoporosis which is multifactorial, history of heavy alcoholism , ex-smoker, she is postmenopausal, has history of low vitamin-D and she fell and broke few ribs. Patient was advised to take on an empty stomach, with a large glass of water, to wait 1 hour to eat. Patient advised not to lay down for an hour after taking the pill. She is on vitamin-D. Laboratory Tests 09/15/19 06/22/20 06/22/20 08:57 11:41 11:41 Triglycerides 225 D Cholesterol 132 LDL Cholesterol, C alc 48 LDL Cholesterol Di rect 58 HDL Cholesterol 39 D N-Telopeptide X-li nked 25-OH Vitamin D To alvin 31.3 TSH 1.47 Free T4 0.97 Urine Creatinine Urine Microalbumin Microalb/Creat Rat io 06/22/20 06/22/20 11:41 11:41 Triglycerides Cholesterol LDL Cholesterol, C alc LDL Cholesterol Di rect HDL Cholesterol N-Telopeptide X-li nked 12 25-OH Vitamin D To alvin TSH Free T4 Urine Creatinine 25 Urine Microalbumin < 5.0 Microalb/Creat Rat io TNP Laboratory Tests 03/25/19 06/04/19 06/04/19 09:00 08:40 08:40 Hgb Hct Sodium Potassium Creatinine Estimated GFR Random Glucose Hemoglobin A1c 7.4 Hgb A1c Fingerstic k Calcium LDL Cholesterol Di rect N-Telopeptide X-li nked 13 25-OH Vitamin D To alvin Microalb/Creat Rat io 6.8 06/04/19 08/26/19 09/15/19 08:40 10:32 08:57 Hgb Hct Sodium Potassium Creatinine Estimated GFR Random Glucose Hemoglobin A1c Hgb A1c Fingerstic k 8.3 Calcium LDL Cholesterol Di rect 52 N-Telopeptide X-li nked 25-OH Vitamin D To alvin 26.6 Microalb/Creat Rat io 03/30/20 03/30/20 10:30 10:30 Hgb 14.0 Hct 40.2 Sodium 138 Potassium 4.3 Creatinine 0.74 Estimated GFR > 60 Random Glucose 120 H Hemoglobin A1c Hgb A1c Fingerstic k Calcium 9.3 LDL Cholesterol Di rect N-Telopeptide X-li nked 25-OH Vitamin D To alvin Microalb/Creat Rat io [facility] Medical History Alcohol use Asthma Cirrhosis Diabetes type 2, uncontrolled Diabetic 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 with type 2 diabetes mellitus Dyslipidemia GERD (gastroesophageal reflux disease) History of 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 Non-toxic multinodular goiter Obesity (BMI 30-39.9) Osteoporosis Personal history of nicotine dependence Vitamin D deficiency Surgical History History of bladder surgery (~06/2019) History of colonoscopy (~2016) History of esophagogastroduodenoscopy (EGD) (~2020) Hx of cardiac cath (~12/2015) Hx of cataract extraction Hx of cholecystectomy (~1980) Status post biopsy of thyroid gland Family History Father Esophageal cancer Mother Diabetes mellitus HTN (hypertension) Social History Household Members: Spouse Alcohol intake: current Alcohol intake frequency: 3 or more drinks per day Alcohol type: beer Patient Tobacco Use Status: Former Tobacco user Quit Date: 11/2012 Tobacco use type: Cigarette Years Smoked: Onset 27, 2ppd x 24yrs, 48pyh, quit 11/2012 Advance Directives Date on File: 11/18/15 Physical Exam Vital Signs: Last Vital Signs Pulse 65 11/23/22 10:38 BP 106/52 L 11/23/22 10:38 BMI result Body Mass Index 32.4 Absence of Cushingoid features. Absence of acromegalic features. Neck exam reveals nl size thyroid about 15 gms. L lobe.R lobe No thyroid nodules palpable. No carotid bruits present. Lungs CTA. Heart S1 S2, Reg R/R. No M/R/ G. Skin exam reveals absence of vitiligo or acanthosis nigricans. Abdominal exam reveals Soft NT/ND with NA BS. No organomegaly present. Some discomfort with [place] maneuver Neck Other: . Extrem Other: Visual exam of foot performed. No ulcerations or open lesions. No onchomycosis, no callouses.Pulses 2 + distally Sensation intact to monofilament exam. Vibratory sensation sensed is diminished with 128 Hz tuning fork Results AMB Hemoglobin A1c AMB Hemoglobin A1c 7.9 % Last Edit by Chloe Mandujano on 11/23/22 11:10 Results Reviewed Results Reviewed: 11/23/22 10:42 Glucose, Whole Blood Routine Laboratory Last Values Glucose (Clinic) 237 mg/dL (60-115) H 11/23/22 10:42 Assessment & Plan Assessment & Plan (1) Diabetes type 2, uncontrolled: Code(s): E11.65 - Type 2 diabetes mellitus with hyperglycemia Plan: This is a 61-year-old female with history of type 2 diabetes being treated with U-500 insulin with poor deteriorated glycemic control and known microvascular complications namely neuropathy. Patient presents somewhat of a treatment challenge considering history of pancreatitis alcohol and inability to use a G LP 1 or SGLT 2 Plan is to increase the U-500 insulin to 250 units before breakfast . . I will also have a follow-up with diabetes educator for possible discussion of pump initiation which be more physiologic then taking the injections I also stressed abstinence from alcohol which is also creating hyperglycemia. Lastly, we talked about bariatric surgery because of the patient's extreme insulin resistance but she is resistant to go forward at this point. She is going to think about and get back to me (2) Osteoporosis: Code(s): M81.0 - Age-related osteoporosis without current pathological fracture Plan: History of osteoporosis on alendronate for few years. The plan is to continue alendronate and calcium and vitamin-D supplementation. Repeat bone density next year (3) Non-toxic multinodular goiter: Code(s): E04.2 - Nontoxic multinodular goiter Plan Status post FNA of a left midpole thyroid nodule 2017 with subsequent ultrasounds showing stability of the size of the nodule . However, patient has obstructive symptoms The plan is to send to Dr. Roberto for possible left lobectomy. Did explain through technical healthcare consultant that she most likely require thyroid hormone she undergoes lobectomy because right lobe is atrophy Orders: Orders AMB Hemoglobin A1c Today E11.65 - Type 2 diabetes mellitus with hyperglycemia Referrals General Surgery Referral E04.2 - Nontoxic multinodular goiter Medications: Changed From insulin regular hum U-500 conc (Humulin R U-500 (Conc) Insulin Kwikpen) 120 units before breakfast and 40 units before dinner subcut .Twice a day; 30 days 6 mL 6RF E11.65 - Type 2 diabetes mellitus with hyperglycemia To insulin regular hum U-500 conc (Humulin R U-500 (Conc) Insulin Kwikpen) 150units before breakfast ; 30 days 6 mL 6RF E11.65 - Type 2 diabetes mellitus with hyperglycemia From insulin regular hum U-500 conc (Humulin R U-500 (Conc) Insulin Kwikpen) 150units before breakfast ; 30 days 6 mL 6RF E11.65 - Type 2 diabetes mellitus with hyperglycemia To insulin regular hum U-500 conc (Humulin R U-500 (Conc) Insulin Kwikpen) 250 units before breakfast ; 30 days 6 mL 6RF E11.65 - Type 2 diabetes mellitus with hyperglycemia Coding Level of Care Code Est Pt Level 4 (93766) Diagnoses Diabetes type 2, uncontrolled E11.65 Osteoporosis M81.0 Non-toxic multinodular goiter E04.2
[2022-11-23 10:38] VITALS: BP 106/52; PULSE 65; BMI 32.4
[2022-11-23 10:47] LABS: Glucose, Whole Blood 237 mg/dL (60-115)
== END 2022-11-23 11:36 | disposition home or self-care (01) ==
PROVIDERS: PCP Student in an Organized Health Care Education/Training Program; Visit Provider Internal Medicine Endocrinology, Diabetes & Metabolism
DX: E11.65 Type 2 diabetes mellitus with hyperglycemia (principal); M81.0 Age-related osteoporosis without current pathological fracture; E04.2 Nontoxic multinodular goiter
CPT/HCPCS: 99214

== ENCOUNTER → 2022-11-23 10:22 | Outpatient (BNVA) | payer MEDICAID, SELFPAY | PROVIDERS: PCP Student in an Organized Health Care Education/Training Program; Visit Provider Internal Medicine Endocrinology, Diabetes & Metabolism | DX: E11.65 Type 2 diabetes mellitus with hyperglycemia (principal); M81.0 Age-related osteoporosis without current pathological fracture; E04.2 Nontoxic multinodular goiter | CPT/HCPCS: 82947; 83036; 99212 ==

== ENCOUNTER 2022-11-24 08:59 | Outpatient (REF) | payer MEDICAID, SELFPAY ==
[2022-11-24 11:20] LABS: MANUAL DIFF FLAG NO
[2022-11-24 11:42] LABS: Basophils Percent Auto 0.6 % (0-2); Eosinophils Absolute Auto 0.1 X10*3/uL (0.0-0.4); Eosinophils Percent Auto 1.9 % (0-4); Hematocrit 35.3 % (37.0-47.0); Hemoglobin 10.4 g/dl (12.0-16.0); Imm Gran Abs Auto 0.02 X10*3/uL (0.00-0.03); Imm Gran Pct Auto 0.3 % (0.0-0.4); Lymphocytes Absolute Auto 1.9 X10*3/uL (1.2-4.9); Lymphocytes Percent Auto 27.7 % (20-40); Mean Corpuscular HGB Conc 29.5 g/dl (31.0-35.0); Mean Corpuscular Hemoglobin 24.2 pg (27.0-33.0); Mean Corpuscular Volume 82.1 fL (80.0-98.0); Mean Platelet Volume 11.2 fL (9.4-12.3); Monocytes Absolute Auto 0.3 X10*3/uL (0.1-1.2); Monocytes Percent Auto 4.2 % (2-11); Neutrophils Absolute Auto 4.4 x10*3/uL (2.0-8.3); Neutrophils Percent Auto 65.3 % (45-73); Platelet Count 330 X10*3/uL (160-400); Red Cell Distribution Width 16.4 % (11.0-16.0); White Blood Count 6.7 X10*3/uL (4.8-10.8)
[2022-11-24 11:55] LABS: Iron 39 mcg/dL (30-160); Lactate Dehydrogenase 188 U/L (122-220); Percent Iron Saturation 8 % (15-50); Total Iron Binding Capacity 468 mcg/dL (228-428); Unsaturated Iron Binding 429 ug/dL
[2022-11-24 12:17] LABS: Ferritin 13 ng/mL (10-250)
[2022-11-27 07:58] LABS: Haptoglobin 75 mg/dL (43-212)
== END 2022-11-24 09:00 | disposition home or self-care (01) ==
LOC: HO.HHCL 08:59
PROVIDERS: Visit Provider Student in an Organized Health Care Education/Training Program
DX: D64.9 Anemia, unspecified (principal)
CPT/HCPCS: 36415; 82728; 83010; 83540; 83615; 85025

== ENCOUNTER 2022-11-24 11:07 | Outpatient (REF) | payer MEDICAID, SELFPAY ==
--- NOTE | ~2022-11-24 | XR_ITS ---
EXAMINATION: XR KNEE, LEFT CLINICAL INFORMATION: Pain Patient states left knee pain for years COMPARISON: None available. TECHNIQUE: Four views of the left knee. FINDINGS: No fracture. Trace joint effusion. Alignment is anatomic. Joint spaces are maintained. Question of tiny calcific or ossific density near the lateral tibial spine on the AP axial view which may represent a loose body within the knee. Faint chondrocalcinosis in the medial joint compartment and possibly within the lateral joint compartment. Arterial vascular calcification is noted. XR/XR knee LT 3V IMPRESSION: 1. No acute bony abnormality. 2. Faint chondrocalcinosis. 3. Question of tiny calcific or ossific density near the lateral tibial spine on the AP axial view which may represent a loose body within the knee.
== END 2022-11-24 11:08 | disposition home or self-care (01) ==
LOC: HO.HHCX 11:07
PROVIDERS: Visit Provider Student in an Organized Health Care Education/Training Program
DX: M25.562 Pain in left knee (principal)
CPT/HCPCS: 73562

== ENCOUNTER 2022-12-06 09:04 | Outpatient (REF) | payer MEDICAID, SELFPAY ==
--- NOTE | ~2022-12-06 | CT_ITS ---
EXAMINATION: CT CHEST SCREENING CLINICAL INFORMATION: Nicotine dependence; 11 pack year smoking history. COMPARISON: CT examinations of the chest dated 04/29/2021 and 10/02/2018. TECHNIQUE: Multidetector volumetric CT imaging of the chest is performed without contrast using low dose technique. Additional 2D coronal and sagittal reformatted images and axial 3D maximum intensity projection (MIP) images are generated on the CT workstation. This CT examination was performed using dose optimization techniques as appropriate, variously including the following: *Automated exposure control *Adjustment of mA and/or kV according to patient size (this includes techniques or standardized protocols for targeted exams where dose is matched to indication/reason for exam; i.e. extremities or head) *Use of iterative reconstruction technique DLP: 47 mGy-cm FINDINGS: LUNGS: At the lateral left base (5:242), a 5 mm noncalcified nodule is seen. This is stable from 04/29/2021 (7:249), however, this was not seen on earlier examinations. Further nodules noted previously are not redemonstrated presently. No new nodule, mass, infiltrate or groundglass opacity is seen. There is stable moderate bibasilar scar/subsegmental atelectasis, without associated focal airway obstruction. There is no generalized small airway thickening. The central airways appear patent. MEDIASTINUM: A calcified left thyroid lobe nodule is seen, consistent with thyroid ultrasound findings dated 05/17/2022. There is no thoracic aortic aneurysm. There are mild atherosclerotic calcifications of the great vessel origins and thoracic aorta. There is no mediastinal or hilar lymphadenopathy. CORONARY ARTERY CALCIFICATION: Mild. PLEURA: There is no pleural effusion. No pleural mass or thickening. AXILLA: No lymphadenopathy. UPPER ABDOMEN: Limited evaluation of the upper abdominal viscera, including the adrenal glands, is unremarkable. OSSEOUS STRUCTURES: Unremarkable. CT/CT lung screening IMPRESSION: 1. There is interim appearance of a 5 mm noncalcified, nonspecific subpleural nodule at the lateral left base. 2. Previously noted right lung nodules are not redemonstrated. 3. There is no new nodule, mass, infiltrate or groundglass opacity. 4. There are stable moderate bibasilar scattered foci of scar/subsegmental atelectasis, without associated focal airway obstruction. 5. No thoracic lymphadenopathy or pleural effusion is seen. 6. Osseous structures are unremarkable. ASSESSMENT: Lung-RADS category 3: Probably Benign RECOMMENDATION: Short interval 6 month follow up low dose CT chest.
== END 2022-12-06 09:05 | disposition home or self-care (01) ==
LOC: HO.CT 09:04
PROVIDERS: Visit Provider Physician Assistant Medical
DX: Z12.2 Encounter for screening for malignant neoplasm of respiratory organs (principal); F17.210 Nicotine dependence, cigarettes, uncomplicated
CPT/HCPCS: 71271

== ENCOUNTER 2022-12-15 14:38 | Outpatient (REF) | payer MEDICAID, SELFPAY ==
[2022-12-15 16:28] LABS: Prothrombin Time 12.5 SEC (11.1-13.3)
[2022-12-15 16:46] LABS: Alanine Aminotransferase 22 U/L (0-31); Albumin Level 4.3 g/dL (3.5-5.0); Alkaline Phosphatase 46 U/L (39-117); Aspartate Amino Transferase 32 U/L (5-31); Bilirubin Direct 0.2 mg/dL (0.0-0.5); Bilirubin Total 0.5 mg/dL (0.0-1.0); Total Protein 7.9 g/dL (6.5-8.0)
[2022-12-19 11:03] LABS: TSpotTB Invalid (Negative)
== END 2022-12-15 14:39 | disposition home or self-care (01) ==
LOC: HO.HHCL 14:38
PROVIDERS: Visit Provider Family Medicine
DX: Z11.1 Encounter for screening for respiratory tuberculosis (principal); F10.20 Alcohol dependence, uncomplicated
CPT/HCPCS: 36415; 80076; 85610; 86481

== ENCOUNTER 2022-12-29 09:03 | Outpatient (AMB) | payer MEDICAID, SELFPAY ==
--- NOTE | 2022-12-29 09:08 | MHC.OFFVIS ---
Intake Vital Signs 12/29/22 09:16 Height 5 ft 3 in Weight 174 lb 2.643 oz BMI 30.8 BP 102/62 Blood Pressure Location Rt brachial Position Sitting Pulse 73 Pulse Source Doppler Pulse Oximetry (%) 94 Oxygen Delivery Method Room Air Intake Visit Reasons: Asthma Allergies cornflower [Cornflower] Allergy (Unknown, Verified 12/29/22 09:17) ITCHY EYES/HIVES peach [PEACH] Allergy (Unknown, Verified 12/29/22 09:17) NATURAL FRUIT - MOUTH ITCHES cornell [cherries] Allergy (Verified 12/29/22 09:17) Unknown apples Allergy (Unknown, Uncoded 12/29/22 09:17) Unknown peanut Allergy (Unknown, Uncoded 12/29/22 09:17) Unknown HPI HPI Comments History of Present Illness Details The patient is here for pulmonary evaluation. The patient is a 62 year woman with a known history of cirrhosis and asthma presenting with worsening shortness of breath. The patient states that for the last year or so she has been getting progressively more short of breath. She also has episodes when she is laying flat and she gets short of breath. She can also wake up short of breath from a sound sleep. The patient also has snoring and she does have an elevated [place] score of 11/24. The patient should have a sleep study in the near future. In the meantime we did taken for a walking oximetry the patient did desaturate down to 90%. She was qualify for oxygen. Therefore, will perform an overnight oximetry to see the patient needs oxygen at nighttime. The patient also is having issues with anemia. Since 2019 she has decreased her hemoglobin by 4 g. I explained the patient that with this decrease hemoglobin that she may have increased work of breathing based on her oxygen carrying capacity. She was recently started on medications for anemia as per the patient. Patient also has noticed lower extremity edema. She also has a very distended abdomen. Sent clear how much is ascites but explained to the patient that with her abdominal pressure being so elevated and her bed so firm makes it difficult for her lungs to expand. As far as imaging she did have a CT scan of the chest that we personally reviewed from November 2022. She does have pulmonary nodules that need follow-up. She is an ex-smoker so therefore more recent to follow as she is considered high risk for cancer. It was given a rads 3 score. This is likely because she is on the lung cancer screening program. The patient had previous CT scans that we also reviewed from back in 2019 which she had the same degree of scarring at the bases. Therefore the basilar scarring that she has in her current CT scan is likely result of a previous infection. She states that she was hospitalized with bad pneumonia back in 2012. 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 Diabetes type 2, uncontrolled Surgical History Status post biopsy of thyroid gland History of colonoscopy (~2016) Hx of cataract extraction History of esophagogastroduodenoscopy (EGD) (~2020) Hx of cardiac cath (~12/2015) Hx of cholecystectomy (~1980) History of bladder surgery (~06/2019) Family History Father Esophageal cancer Mother Diabetes mellitus HTN (hypertension) Social History Household Members: Spouse Alcohol intake: current Alcohol intake frequency: 3 or more drinks per day Alcohol type: beer Patient Tobacco Use Status: Former Tobacco user Quit Date: 11/2012 Tobacco use type: Cigarette Years Smoked: Onset 27, 2ppd x 24yrs, 48pyh, quit 11/2012 Advance Directives Date on File: 11/18/15 Review of Systems Const Reports as per HPI, Reports daytime sleepiness and Reports difficulty sleeping ENT Reports no additional complaints Card Denies chest pain, Denies chest pain at rest, Denies chest pain with activity and Reports dyspnea on exertion Resp Denies chest congestion, Reports cough, Reports dyspnea on exertion and Denies wheezing GI Reports no additional complaints Musc Reports myalgias Skin/Breast Reports pruritus and Denies wounds Neuro Reports no additional complaints Psych Denies no additional complaints Neftali/Lymph Denies lymphadenopathy Aller/Immun Denies wheezing Physical Exam Vital Signs: Last Vital Signs Pulse 73 12/29/22 09:16 BP 102/62 12/29/22 09:16 Pulse Ox 94 12/29/22 09:16 Oxygen Delivery Method Room Air 12/29/22 09:16 BMI result Body Mass Index 30.8 Assessment & Plan Assessment & Plan (1) Asthma-COPD overlap syndrome: Code(s): J44.9 - Chronic obstructive pulmonary disease, unspecified (2) CHERISE (obstructive sleep apnea): Code(s): G47.33 - Obstructive sleep apnea (adult) (pediatric) (3) Dyspnea: Code(s): R06.00 - Dyspnea, unspecified Qualifiers: Dyspnea type: dyspnea on exertion Qualified Code(s): R06.09 - Other forms of dyspnea Plan continue symbicort ANNETTE as needed Overnight oximetry, ?need for nocturnal oxygen supplementation PFTs ECHO F/U 2 months Orders: Orders PFT pulmonary function test 12/29/22 G47.33 - Obstructive sleep apnea (adult) (pediatric), J44.9 - Chronic obstructive pulmonary disease, unspecified CA echo transthoracic complete 12/29/22 G47.33 - Obstructive sleep apnea (adult) (pediatric), I27.20 - Pulmonary hypertension, unspecified, J44.9 - Chronic obstructive pulmonary disease, unspecified Overnight Pulse Oximetry 12/29/22 G47.33 - Obstructive sleep apnea (adult) (pediatric), J44.9 - Chronic obstructive pulmonary disease, unspecified Coding Level of Care Code New Pt Level 4 (15603) Diagnoses Asthma-COPD overlap syndrome J44.9 CHERISE (obstructive sleep apnea) G47.33 Dyspnea on exertion R06.09 Dyspnea type: dyspnea on exertion Time Spent (min) 40
[2022-12-29 09:16] VITALS: BP 102/62; PULSE 73; O2SAT 94; BMI 30.8
== END 2022-12-29 09:47 | disposition home or self-care (01) ==
PROVIDERS: PCP Student in an Organized Health Care Education/Training Program; Visit Provider Hospitalist
DX: J44.9 Chronic obstructive pulmonary disease, unspecified (principal); G47.33 Obstructive sleep apnea (adult) (pediatric); R06.09 Other forms of dyspnea
CPT/HCPCS: 99204

== ENCOUNTER → 2022-12-29 09:03 | Outpatient (BNVA) | payer MEDICAID, SELFPAY | PROVIDERS: PCP Student in an Organized Health Care Education/Training Program; Visit Provider Hospitalist ==

== ENCOUNTER 2023-01-23 12:46 | Outpatient (REF) | payer MEDICAID, SELFPAY ==
[2023-01-23 13:43] LABS: MANUAL DIFF FLAG NO
[2023-01-23 13:55] LABS: Basophils Percent Auto 0.4 % (0-2); Eosinophils Absolute Auto 0.1 X10*3/uL (0.0-0.4); Eosinophils Percent Auto 1.7 % (0-4); Hematocrit 39.1 % (37.0-47.0); Hemoglobin 12.1 g/dl (12.0-16.0); Imm Gran Abs Auto 0.04 X10*3/uL (0.00-0.03); Imm Gran Pct Auto 0.5 % (0.0-0.4); Lymphocytes Absolute Auto 2.1 X10*3/uL (1.2-4.9); Lymphocytes Percent Auto 25.5 % (20-40); Mean Corpuscular HGB Conc 30.9 g/dl (31.0-35.0); Mean Corpuscular Hemoglobin 26.7 pg (27.0-33.0); Mean Corpuscular Volume 86.1 fL (80.0-98.0); Mean Platelet Volume 10.6 fL (9.4-12.3); Monocytes Absolute Auto 0.5 X10*3/uL (0.1-1.2); Monocytes Percent Auto 6.1 % (2-11); Neutrophils Absolute Auto 5.5 x10*3/uL (2.0-8.3); Neutrophils Percent Auto 65.8 % (45-73); Platelet Count 310 X10*3/uL (160-400); Red Blood Count 4.54 X10*6/uL (4.20-5.50); Red Cell Distribution Width 17.7 % (11.0-16.0); White Blood Count 8.3 X10*3/uL (4.8-10.8)
[2023-01-23 14:45] LABS: Ferritin 22 ng/mL (10-250)
[2023-01-23 15:00] LABS: Anion Gap 16 (12-20)
[2023-01-23 15:05] LABS: Alanine Aminotransferase 28 U/L (0-31); Albumin Level 4.3 g/dL (3.5-5.0); Alkaline Phosphatase 51 U/L (39-117); Aspartate Amino Transferase 39 U/L (5-31); Bilirubin Total 0.5 mg/dL (0.0-1.0); Blood Urea Nitrogen 9 mg/dL (9-16); Calcium 10.2 mg/dL (8.4-10.2); Carbon Dioxide 28 mmol/L (22-29); Chloride 98 mmol/L (96-108); Estimated Glomerular Filt Rate > 60; Glucose Random 234 mg/dL (60-115); Iron 56 mcg/dL (30-160); Percent Iron Saturation 13 % (15-50); Potassium 3.7 mmol/L (3.3-5.1); Sodium 138 mmol/L (135-145); Total Iron Binding Capacity 440 mcg/dL (228-428); Total Protein 8.2 g/dL (6.5-8.0); Unsaturated Iron Binding 384 ug/dL
== END 2023-01-23 12:47 | disposition home or self-care (01) ==
LOC: HO.HHCL 12:46
PROVIDERS: Visit Provider Student in an Organized Health Care Education/Training Program
DX: E11.618 Type 2 diabetes mellitus with other diabetic arthropathy (principal); D64.9 Anemia, unspecified
CPT/HCPCS: 36415; 80053; 82728; 83540; 85025

== ENCOUNTER 2023-01-31 08:12 | Outpatient (AMB) | payer MEDICAID, SELFPAY ==
--- NOTE | 2023-01-31 08:15 | MHC.OFFVIS ---
Intake Vital Signs 01/31/23 08:16 Height 5 ft 3 in Weight 175 lb 0.752 oz BMI 31.0 BP 124/52 L Blood Pressure Location Lt brachial Position Sitting Pulse 76 Pulse Source Pulse Oximeter Intake Visit Reasons: f/u Type 2 DM , thyroid nodule and osteoporosis Intake Note: Patient presents today to follow up on Type Diabetes Mellitus. Patient receives DME supplies through: Last Diabetic Eye exam: 06/01 Last Podiatry Visit:None Random Glucose: 303 mg/dl HgA1C:7.9% 11/23/22 Japanese Tutor Required: Yes Japanese Tutor Language: Environmental Health Safety Engineer Name: Machelle daughter in law Information Interpreted: non-clinical & clinical Accompanied by: Other Relationship Allergies cornflower [Cornflower] Allergy (Unknown, Verified 01/31/23 08:32) ITCHY EYES/HIVES peach [PEACH] Allergy (Unknown, Verified 01/31/23 08:32) NATURAL FRUIT - MOUTH ITCHES cornell [cherries] Allergy (Verified 01/31/23 08:32) Unknown apples Allergy (Unknown, Uncoded 12/29/22 09:17) Unknown peanut Allergy (Unknown, Uncoded 12/29/22 09:17) Unknown Medication List - Last Reconciled 01/31/23 by Kaushik Diamond MD acamprosate 666 mg PO TID albuterol sulfate 90 mcg/actuation (ProAir HFA) 2 puffs PO Q6H PRN alendronate 70 mg PO QWEEK atorvastatin TAKE 1 TABLET BY MOUTH AT BEDTIME blood pressure test kit-large As directed blood sugar diagnostic (FreeStyle Test strips) 4 times a day blood-glucose meter (FreeStyle [place] Lite kit) As directed budesonide-formoterol 160-4.5 mcg/actuation (Symbicort) 2 puffs PO canagliflozin (Invokana) 300 mg PO QAM cephalexin 500 mg PO Q12H 5 days cetirizine 10 mg PO DAILY cholecalciferol (vitamin D3) (Vitamin D3) 50 mcg PO QAM fenofibrate micronized 134 mg PO DAILY flash glucose scanning reader (DutyCalculatorStyle Lakeisha 2 [place]) As directed flash glucose sensor (FreeStyle Lakeisha 2 Sensor kit) every 14 days fluticasone propionate 50 mcg/actuation 2 sprays intranasal QAM gabapentin 100 mg PO BEDTIME insulin regular hum U-500 conc (Humulin R U-500 (Conc) Insulin Kwikpen) 250 units before breakfast ; 30 days lancets (FreeStyle Lancets) As directed lancets (TRUEplus Lancets) As directed losartan 25 mg PO QAM nystatin-triamcinolone 100,000-0.1 unit/g-% 1 appl topical DAILY pantoprazole 20 mg PO DAILY pantoprazole 40 mg PO DAILY 30 days pen needle, diabetic (BD Ultra-Fine Debbie Pen Needle) As directed once a day sertraline (Zoloft) 50 mg PO DAILY solifenacin 5 mg PO DAILY trazodone 100 mg PO BEDTIME PRN HPI HPI Comments History of Present Illness Details 62 yo female today for fup visit, for diabetes management and MNG She is feeling well she has no complaints today. She is currently on Humulin U 500 to 160 units for breakfast Lakeisha download shows CGMS active 68% of the time. GMI of 10.2 Average glucose is 288. 18% in target range 16 % high at 66% very hyperglycemic and0% hypoglycemic . Pattern shows increases from 03:00 to 09:00. Rare hypoglycemia She has diabetes mellitus type 2 diagnosed on August 29, 2007. 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 Complications: no retinopathy, + nephropathy, no neuropathy, CVA, CAD, PVD. Metformin was stopped due to diarrhea. Which is resolved after stopping the medication. last saw 2 yrs ago has cataracts , no note available. last optho appt Summer 2022 . Denies polyuria, polydipsia, polyuria. Weight is stable. Date of Service: 06/30/20 THYROID Right Thyroid Lobe: 2.9 x 0.8 x 0.9 cm, volume 1.0 mL. Previously 3.5 x 1.1 x 0.8 cm, volume 1.6 mL. Parenchyma: The gland echotexture is homogeneous. Thyroid vascularity is normal. Left Thyroid Lobe: 4.6 x 2.7 x 2.4 cm, volume 15.7 mL. Previously 4.2 x 2.4 x 2.3 cm, volume 11.7 mL. Parenchyma: The gland echotexture is heterogeneous. Thyroid vascularity is normal. Isthmus: 0.2 cm in maximum AP dimension. Previously 0.2 cm. Estimated total number of nodules greater than or equal to 1 cm: 1. Basting Machine Operator nodules are described as follows: 1. Location: Left. Size: 3.1 x 2.0 x 2.7 cm, volume 8.8 mL. Previously: 3.3 x 2.4 x 2.3 cm, volume 9.7 mL. Nodule characteristics: Composition: Solid/almost completely solid (2). Echogenicity: Hypoechoic (2). Shape: Taller than wide (3). Margins: Smooth (0). Echogenic Foci: Macrocalcifications (1). ACR TI-RADS total points: 8 ACR TI-RADS category: 5 Significant change in size (>/= 20% in 2 dimensions and minimal increase of 2 mm or 50% or greater increase in volume): Minimal decrease in the volume. Change in features: None. Change in ACR TI-RADS risk category: None. Also visualized is a tiny cyst in the right lobe. NODES: No lymphadenopathy is seen in the tissue surrounding the thyroid gland. She had fine-needle aspiration on 10/16/2017 of left mid thyroid dominant nodule. Was consistent with benign follicular nodule, [place] category 2. Was supposed to see DR. Roberto for surgical evaluation but did not 01/07/19 DEXA scan AP SPINE L1-L4: BMD 0.905 g/cm2, Z-score -1.4, T-score -2.3, osteopenia. LEFT FEMUR, NECK: BMD 0.657 g/cm2, Z-score -1.7, T-score -2.7, osteoporosis. LEFT FEMUR, TOTAL: BMD 0.756 g/cm2, Z-score -1.3, T-score -2.0, osteopenia. Is taking alendronate 70 mg q wkly . Patient has osteoporosis which is multifactorial, history of heavy alcoholism , ex-smoker, she is postmenopausal, has history of low vitamin-D and she fell and broke few ribs. Patient was advised to take on an empty stomach, with a large glass of water, to wait 1 hour to eat. Patient advised not to lay down for an hour after taking the pill. She is on vitamin-D. Laboratory Tests 09/15/19 06/22/20 06/22/20 08:57 11:41 11:41 Triglycerides 225 D Cholesterol 132 LDL Cholesterol, C alc 48 LDL Cholesterol Di rect 58 HDL Cholesterol 39 D N-Telopeptide X-li nked 25-OH Vitamin D To alvin 31.3 TSH 1.47 Free T4 0.97 Urine Creatinine Urine Microalbumin Microalb/Creat Rat io 06/22/20 06/22/20 11:41 11:41 Triglycerides Cholesterol LDL Cholesterol, C alc LDL Cholesterol Di rect HDL Cholesterol N-Telopeptide X-li nked 12 25-OH Vitamin D To alvni TSH Free T4 Urine Creatinine 25 Urine Microalbumin < 5.0 Microalb/Creat Rat io TNP Laboratory Tests 03/25/19 06/04/19 06/04/19 09:00 08:40 08:40 Hgb Hct Sodium Potassium Creatinine Estimated GFR Random Glucose Hemoglobin A1c 7.4 Hgb A1c Fingerstic k Calcium LDL Cholesterol Di rect N-Telopeptide X-li nked 13 25-OH Vitamin D To alvin Microalb/Creat Rat io 6.8 06/04/19 08/26/19 09/15/19 08:40 10:32 08:57 Hgb Hct Sodium Potassium Creatinine Estimated GFR Random Glucose Hemoglobin A1c Hgb A1c Fingerstic k 8.3 Calcium LDL Cholesterol Di rect 52 N-Telopeptide X-li nked 25-OH Vitamin D To alvin 26.6 Microalb/Creat Rat io 03/30/20 03/30/20 10:30 10:30 Hgb 14.0 Hct 40.2 Sodium 138 Potassium 4.3 Creatinine 0.74 Estimated GFR > 60 Random Glucose 120 H Hemoglobin A1c Hgb A1c Fingerstic k Calcium 9.3 LDL Cholesterol Di rect N-Telopeptide X-li nked 25-OH Vitamin D To alvin Microalb/Creat Rat io [facility] Medical History (Updated 12/31/22 @ 19:48 by Humberto Yap MD) Dyspnea Asthma-COPD overlap syndrome Alcohol use History of methadone use Personal history of nicotine dependence Asthma Obesity (BMI 30-39.9) GERD (gastroesophageal reflux disease) Cirrhosis Vitamin D deficiency Hypertension Dyslipidemia Non-toxic multinodular goiter Osteoporosis Diabetic 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 with type 2 diabetes mellitus 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 of 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 Diabetes type 2, uncontrolled Surgical History Status post biopsy of thyroid gland History of colonoscopy (~2017) Hx of cataract extraction History of esophagogastroduodenoscopy (EGD) (~2020) Hx of cardiac cath (~12/2015) Hx of cholecystectomy (~1980) History of bladder surgery (~06/2019) Family History Father Esophageal cancer Mother Diabetes mellitus HTN (hypertension) Social History Household Members: Spouse Alcohol intake: current Alcohol intake frequency: 3 or more drinks per day Alcohol type: beer Patient Tobacco Use Status: Former Tobacco user Quit Date: 11/2012 Tobacco use type: Cigarette Years Smoked: Onset 27, 2ppd x 24yrs, 48pyh, quit 11/2012 Advance Directives Date on File: 11/18/15 Physical Exam Vital Signs: Last Vital Signs Pulse 76 01/31/23 08:16 BP 124/52 L 01/31/23 08:16 BMI result Body Mass Index 31.0 Absence of Cushingoid features. Absence of acromegalic features. Neck exam reveals nl size thyroid about 15 gms. L lobe.R lobe No thyroid nodules palpable. No carotid bruits present. Lungs CTA. Heart S1 S2, Reg R/R. No M/R/ G. Skin exam reveals absence of vitiligo or acanthosis nigricans. Abdominal exam reveals Soft NT/ND with NA BS. No organomegaly present. Some discomfort with Chloe maneuver Neck Other: . Extrem Other: Visual exam of foot performed. No ulcerations or open lesions. No onchomycosis, no callouses.Pulses 2 + distally Sensation intact to monofilament exam. Vibratory sensation sensed is diminished with 128 Hz tuning fork Results Reviewed Results Reviewed: 01/31/23 08:26 Glucose, Whole Blood Routine Laboratory Last Values Glucose (Clinic) 303 mg/dL (60-115) H 01/31/23 08:26 Assessment & Plan Assessment & Plan (1) Diabetes type 2, uncontrolled: Code(s): E11.65 - Type 2 diabetes mellitus with hyperglycemia Plan: This is a 61-year-old female with history of type 2 diabetes being treated with U-500 insulin with poor deteriorated glycemic control and known microvascular complications namely neuropathy. Patient presents somewhat of a treatment challenge considering history of pancreatitis alcohol and inability to use a G LP 1 or SGLT 2 Plan is to increase the U-500 insulin to 3000 units before breakfast . . I will also have a follow-up with primary special educator for possible discussion of pump initiation which be more physiologic then taking the injections. I also stressed abstinence from alcohol which is also creating hyperglycemia. Lastly, we talked about bariatric surgery because of the patient's extreme insulin resistance but she is resistant to go forward at this point. Due to the lack of resources in this office and lack of primary special educator as well as advanced practitioner, I suggested she follow-up for diabetes and [facility] (2) Osteoporosis: Code(s): M81.0 - Age-related osteoporosis without current pathological fracture Plan: History of osteoporosis on alendronate for few years. The plan is to continue alendronate and calcium and vitamin-D supplementation. Repeat bone density next year in 06/2023 (3) Non-toxic multinodular goiter: Code(s): E04.2 - Nontoxic multinodular goiter Plan Status post FNA of a left midpole thyroid nodule 2017 with subsequent ultrasounds showing stability of the size of the nodule . However, patient has obstructive symptoms The plan is to send to Dr. Roberto for possible left lobectomy. Coding Level of Care Code Est Pt Level 4 (48891) Diagnoses Diabetes type 2, uncontrolled E11.65 Osteoporosis M81.0 Non-toxic multinodular goiter E04.2
[2023-01-31 08:16] VITALS: BP 124/52; PULSE 76; BMI 31.0
[2023-01-31 08:30] LABS: Glucose, Whole Blood 303 mg/dL (60-115)
== END 2023-01-31 08:49 | disposition home or self-care (01) ==
PROVIDERS: PCP Student in an Organized Health Care Education/Training Program; Visit Provider Internal Medicine Endocrinology, Diabetes & Metabolism
DX: E11.65 Type 2 diabetes mellitus with hyperglycemia (principal); M81.0 Age-related osteoporosis without current pathological fracture; E04.2 Nontoxic multinodular goiter
CPT/HCPCS: 99214

== ENCOUNTER → 2023-01-31 08:12 | Outpatient (BNVA) | payer MEDICAID, SELFPAY | PROVIDERS: PCP Student in an Organized Health Care Education/Training Program; Visit Provider Internal Medicine Endocrinology, Diabetes & Metabolism | DX: E11.65 Type 2 diabetes mellitus with hyperglycemia (principal); M81.0 Age-related osteoporosis without current pathological fracture; E04.2 Nontoxic multinodular goiter | CPT/HCPCS: 82947; 99212 ==

== ENCOUNTER 2023-02-07 11:22 | Outpatient (AMB) | payer MEDICAID, SELFPAY ==
--- NOTE | 2023-02-07 11:25 | MHC.OFFVIS ---
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 She states this pain started 2 years ago, she denies any injury. She states nothing helps the pain. He has tried Tylenol and anti-inflammatory medicines which gave her minimal relief. She has not had an injection. She has done physical therapy which aggravated her pain. Allergies cornflower [Cornflower] Allergy (Unknown, Verified 02/07/23 11:25) ITCHY EYES/HIVES peach [PEACH] Allergy (Unknown, Verified 02/07/23 11:25) NATURAL FRUIT - MOUTH ITCHES cornell [cherries] Allergy (Verified 02/07/23 11:25) Unknown apples Allergy (Unknown, Uncoded 02/07/23 11:) Unknown peanut Allergy (Unknown, Uncoded 02/07/23 11:25) Unknown Medication List - Last Reconciled 02/07/23 by Emily Gottlieb, RN acamprosate 666 mg PO TID albuterol sulfate 90 mcg/actuation (ProAir HFA) 2 puffs PO Q6H PRN alendronate 70 mg PO QWEEK atorvastatin TAKE 1 TABLET BY MOUTH AT BEDTIME blood pressure test kit-large As directed blood sugar diagnostic (FreeStyle Test strips) 4 times a day blood-glucose meter (FreeStyle [place] Lite kit) As directed budesonide-formoterol 160-4.5 mcg/actuation (Symbicort) 2 puffs PO canagliflozin (Invokana) 300 mg PO QAM cephalexin 500 mg PO Q12H 5 days cetirizine 10 mg PO DAILY cholecalciferol (vitamin D3) (Vitamin D3) 50 mcg PO QAM fenofibrate micronized 134 mg PO DAILY flash glucose scanning reader (FreeStyle Lakeisha 2 [place]) As directed flash glucose sensor (FreeStyle Lakeisha 2 Sensor kit) every 14 days fluticasone propionate 50 mcg/actuation 2 sprays intranasal QAM gabapentin 100 mg PO BEDTIME insulin regular hum U-500 conc (Humulin R U-500 (Conc) Insulin Kwikpen) 250 units before breakfast ; 30 days lancets (FreeStyle Lancets) As directed lancets (TRUEplus Lancets) As directed losartan 25 mg PO QAM nystatin-triamcinolone 100,000-0.1 unit/g-% 1 appl topical DAILY pantoprazole 20 mg PO DAILY pantoprazole 40 mg PO DAILY 30 days pen needle, diabetic (BD Ultra-Fine Debbie Pen Needle) As directed once a day sertraline (Zoloft) 50 mg PO DAILY solifenacin 5 mg PO DAILY trazodone 100 mg PO BEDTIME PRN COUNTS INCLUDE 234 BEDS AT THE [facility] Medical History (Updated 02/07/23 @ 12:10 by Geo Tomlinson MD) Dyspnea Asthma-COPD overlap syndrome Alcohol use History of methadone use Personal history of nicotine dependence Asthma Obesity (BMI 30-39.9) GERD (gastroesophageal reflux disease) Cirrhosis Vitamin D deficiency Hypertension Dyslipidemia Non-toxic multinodular goiter Osteoporosis Diabetic 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 Diabetes type 2, uncontrolled Surgical History Status post biopsy of thyroid gland History of colonoscopy (~2016) Hx of cataract extraction History of esophagogastroduodenoscopy (EGD) (~2020) Hx of cardiac cath (~12/2015) Hx of cholecystectomy (~1980) History of bladder surgery (~06/2019) Family History Father Esophageal cancer Mother Diabetes mellitus HTN (hypertension) Social History Household Members: Spouse Alcohol intake: current Alcohol intake frequency: 3 or more drinks per day Alcohol type: beer Patient Tobacco Use Status: Former Tobacco user Quit Date: 11/2012 Tobacco use type: Cigarette Years Smoked: Onset 27, 2ppd x 24yrs, 48pyh, quit 11/2012 Advance Directives Date on File: 11/18/15 Physical Exam Const Other: Well-nourished well-developed very friendly female awake alert and oriented x3 in no acute distress Extrem Other: Bilateral lower extremity examination shows good capillary refill, no skin lesions noted, normal sensation light touch Left knee examination shows a minimal effusion, mild crepitus with range of motion, pain with range of motion, range of motion from -3 degrees to 115 degrees, no instability Office Procedures Joint Injection/Drain Joint Injection/Drain Primary Site: right knee Prep: site was prepped using aseptic technique Injected: 40 mg of, Kenalog and 1% plain lidocaine Procedure: The patient tolerated the procedure well Coding - Large joint Procedure code (CPT) selection complete Results Reviewed Results Reviewed: 02/07/23 11:48 Lidocaine HCl 1 % [Xylocaine 1 %] 2 ml .ROUTE .STK-MED ONE Triamcinolone Acetonide [Kenalog-40] 40 mg .ROUTE .STK-MED ONE X-rays of the patient's left knee show mild diffuse joint space narrowing, subchondral sclerosis, no acute bony abnormalities Assessment & Plan Assessment & Plan (1) Arthritis of right knee: Code(s): M17.11 - Unilateral primary osteoarthritis, right knee Plan: Ms. Tavarez presents with left knee pain due to degenerative joint disease. I had a lengthy discussion with the patient regarding the treatment options. The risks and benefits of a cortisone injection were discussed at length with the patient. The patient wished to proceed. She tolerated the left knee cortisone injection well. She will continue with her activity modifications. She will follow up with me on an as-needed basis should her symptoms not plateau at an unacceptable level over the next few months. Feel free to call me at any time should questions regarding her orthopedic management arise. Thank you very much for asking me to see this very friendly patient. I spent 22 minutes in reviewing the patient's records and imaging studies, seeing the patient and documenting in the medical record. Orders: Orders AMB Joint Injection/Aspiration Today M17.11 - Unilateral primary osteoarthritis, right knee Coding Level of Care Code New Pt Level 2 (06843) Diagnoses Arthritis of right knee M17.11 CPT Codes Coding - Large joint: 28010 - Large joint ([id number])
== END 2023-02-07 12:09 | disposition home or self-care (01) ==
PROVIDERS: PCP Student in an Organized Health Care Education/Training Program; Visit Provider Orthopaedic Surgery
DX: M17.11 Unilateral primary osteoarthritis, right knee (principal)
CPT/HCPCS: 20610; 99204

== ENCOUNTER → 2023-02-07 11:22 | Outpatient (BNVA) | payer MEDICAID, SELFPAY | PROVIDERS: PCP Student in an Organized Health Care Education/Training Program; Visit Provider Orthopaedic Surgery | DX: M25.562 Pain in left knee (principal) | CPT/HCPCS: 20610; 99202; J3301 ==

== ENCOUNTER 2023-02-15 12:38 | Outpatient (AMB) | payer MEDICAID, SELFPAY ==
--- NOTE | 2023-02-15 12:44 | MHC.OFFVIS ---
Vital Signs 02/15/23 12:52 Height 5 ft 3 in Weight 175 lb 0.752 oz BMI 31.0 BP 110/51 L Blood Pressure Location Lt brachial Position Sitting Pulse 64 Intake Visit Reasons: Gastroesophageal reflux disease (GERD) Intake Note: Patient presents to in office visit today in follow up of GERD. CC: Patient c/o heartburn, epigastric pain, bloating, and constipation. Patient reports she has a fatty liver. Sizer Machine Required: Yes Sizer Machine Name: daughter in law Accompanied by: Spouse Allergies cornflower [Cornflower] Allergy (Unknown, Verified 08/09/23 09:30) ITCHY EYES/HIVES peach [PEACH] Allergy (Unknown, Verified 08/09/23 09:30) NATURAL FRUIT - MOUTH ITCHES cornell [cherries] Allergy (Verified 08/09/23 09:30) Unknown No Known Drug Allergies Allergy (Verified 08/09/23 09:30) none apples Allergy (Unknown, Uncoded 06/11/23 09:56) Unknown peanut Allergy (Unknown, Uncoded 06/11/23 09:56) Unknown Medication List - Last Reconciled 02/15/23 by Julissa Newberry MD acamprosate 666 mg PO TID albuterol sulfate 90 mcg/actuation (ProAir HFA) 2 puffs PO Q6H PRN atorvastatin TAKE 1 TABLET BY MOUTH AT BEDTIME blood pressure test kit-large As directed blood sugar diagnostic (FreeStyle Test strips) 4 times a day blood-glucose meter (FreeStyle [place] Lite kit) As directed budesonide-formoterol 160-4.5 mcg/actuation (Symbicort) 2 puffs PO calcium carbonate (Oyster Shell Calcium) 500 mg PO BID canagliflozin (Invokana) 300 mg PO QAM cetirizine 10 mg PO DAILY cholecalciferol (vitamin D3) (Vitamin D3) 50 mcg PO QAM fenofibrate micronized 134 mg PO DAILY flash glucose scanning reader (MapMyFitnessStyle Lakeisha 2 [place]) As directed flash glucose sensor (FreeStyle Lakeisha 2 Sensor kit) every 14 days gabapentin 100 mg PO BEDTIME insulin regular hum U-500 conc (Humulin R U-500 (Conc) Insulin Kwikpen) 250 units before breakfast ; 30 days lancets (FreeStyle Lancets) As directed lancets (TRUEplus Lancets) As directed losartan 25 mg PO QAM mirabegron ER (Myrbetriq) 25 mg PO QAM nystatin-triamcinolone 100,000-0.1 unit/g-% 1 appl topical DAILY pantoprazole 20 mg PO DAILY pantoprazole 40 mg PO DAILY 30 days pen needle, diabetic (BD Ultra-Fine Debbie Pen Needle) As directed once a day sertraline (Zoloft) 50 mg PO DAILY trazodone 100 mg PO BEDTIME PRN HPI HPI Gastroesophageal reflux disease (GERD): Details: GI CLINIC VISIT FOR THIS 62-YEAR-OLD NEW ZEALANDER-SPEAKING FEMALE FOR FOLLOW-UP OF CIRRHOSIS AND GERD. LABS IN [facility]:?12/11/19 LFTS SHOWED AST OF 98, ALT OF 54, ALBUMIN 4.3 05/29 NORMAL CBC WITH PLATELET COUNT OF 218, INR 1, NORMAL BILIRUBIN WITH AST OF 43, ALT 72, ALKALINE PHOSPHATASE 74 ? 09/2017 HEPATITIS-B ANTIBODY WAS POSITIVE, NO OTHER HEPATITIS SEROLOGIES AVAILABLE IN [facility]. IMAGING STUDIES: 09/2021 BARIUM SWALLOW - normal 02/16/21 ABD US SHOWED: 1. No sonographic evidence of focal liver lesion. 2. Multiple presumed hemangioma within the spleen, the largest measures 1.4 cm, appears stable since 12/18/2018. 04/2020 abdominal ultrasound with elastography showed: Hepatic steatosis without focal lesion. There is hepatopedal flow seen in the portal vein. Visualized pancreas, gallbladder and the right kidney is unremarkable. On Elastography there is mild to moderate fibrosis stage F2 - F3? ENDOSCOPIC STUDIES: 02/25/21 EGD SHOWED: ESOPHAGUS: A 3-4 mm benign appearing nodule in the mid esophagus at 30 cms - biopsied. GE junction at 38 cms.? Tortuous esophagus with increased tertiary contractions without stricture or ring - empiric balloon dilation was performed with a 19 mm CRE balloon x 60 sec.? Biopsies were obtained from proximal esophagus to check for EOE No esophagitis or Bui's. STOMACH: Moderate non-erosive portal gastropathy involving the gastric body and fundus. Mild gastric erythema. Biopsies were obtained.? Gastric polyp. DUODENUM: Normal - biopsies were negative for celiac sprue. B. Gastric antrum, biopsy: -Mild reactive gastropathy with ectatic mucosal vessels and focal minimal chronic inflammation; negative for H. pylori. -No active inflammation. C. Gastric polyp, biopsy: -Fundic gland polyp; negative for H. pylori. -No active inflammation. D. Esophagus, mid, nodule, biopsy: -Benign squamous mucosa with focal intraepithelial neutrophils and eosinophils, consistent with acute esophagitis; negative for fungi.? -No columnar mucosa present. E. Esophagus, proximal, biopsy: -Squamous mucosa with no specific change.? -No evidence of eosinophilic esophagitis. ? 05/2011 EGD showed hemorrhagic gastritis and no esophageal varices were seen ? 04/2016 colonoscopy was performed by Dr. Hutchinson and showed rectosigmoid region appeared thickened with a few patchy areas of flat hyperplastic appearing tissue. ? Biopsies showed hyperplastic colonic mucosa. ?TODAY'S VISIT Patient presents to in office visit today in follow up of GERD. CC: Patient c/o heartburn, epigastric pain, bloating, and constipation. Patient reports she has a fatty liver. 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 Dysphagia with all meals. Swallowing is painful. Drinking 3 beers a day. ?? ? Doing so so - notes abdominal bloating, gas and diarrhea Requests an EGD. Denies heartburn since she is taking medications - Pepcid 10 mg twice a day. ? (Omeprazole was stopped due to concern for side effects of diarrhea). ? Pt admits to drinking 2 beers a day and trying to cut back. ? Rib pain has improved only hurts occasionally. ? She does not take medications as prescribed. 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 Diabetes type 2, uncontrolled Surgical History Status post biopsy of thyroid gland History of colonoscopy (~2016) Hx of cataract extraction History of esophagogastroduodenoscopy (EGD) (~2020) Hx of cardiac cath (~12/2015) Hx of cholecystectomy (~1980) History of bladder surgery (~06/2019) Family History Father Esophageal cancer Mother Diabetes mellitus HTN (hypertension) Social History Household Members: Spouse Alcohol intake: current Alcohol intake frequency: 3 or more drinks per day Alcohol type: beer Patient Tobacco Use Status: Former Tobacco user Tobacco use type: Cigarette Years Smoked: Onset 27, 2ppd x 24yrs, 48pyh, quit 11/2012 Advance Directives Date on File: 11/18/15 Review of Systems Const All systems reviewed & are unremarkable except as noted in HPI and below Physical Exam Vital Signs: Last Vital Signs Pulse 64 02/15/23 12:52 BP 110/51 L 02/15/23 12:52 BMI result Body Mass Index 31.0 Const General: healthy appearing and no acute distress Nutritional Appearance: obese Orientation/consciousness: patient oriented x3 Limitations: language barrier HEENT Head: Yes normal to inspection Ears: hearing grossly normal bilaterally Eyes Sclerae: sclerae normal Pupils: Equal, round and reactive pupils present Neck Neck: Yes normal visual inspection Chest Chest palpation & inspection: normal inspection of the chest Resp Effort & Inspection: normal respiratory effort Auscultation: clear to auscultation bilaterally Cardio Palpation: normal PMI Rate: regular rate Rhythm: regular rhythm Heart sounds: S1 normal heart sound present, S2 normal heart sound present and no murmurs GI Palpation (GI): Soft to palpation, Tenderness to palpation present (GI) (Mild epigastrium with ?palpable left lobe of liver of liver ) and Hepatomegaly present Auscultation: normal bowel sounds Rectal Exam - Female: deferred Skin General skin exam: no rashes or lesions noted Neuro General: patient oriented x3, gait normal and moves all extremities Cranial nerves: Yes Equal, round and reactive pupils present Psych Appearance: grossly normal Mental Status: mental status grossly normal Assessment & Plan Assessment & Plan (1) Cirrhosis: Comment: (Alcohol-related liver cirrhosis) Code(s): K74.60 - Unspecified cirrhosis of liver Category: Medical (2) Dysphagia, pharyngoesophageal phase: Code(s): R13.14 - Dysphagia, pharyngoesophageal phase Category: Medical (3) GERD (gastroesophageal reflux disease): Code(s): K21.9 - Gastro-esophageal reflux disease without esophagitis Category: Medical (4) Colon cancer screening: Comment: 2017 Colonoscopy was performed by Dr Hutchinson and showed thickened mucosa at 2 cms in the rectum - hyperplastic on bx Repeat colon advised in 10 yrs (would recommend to discontinue colon cancer screening given multiple comorbidities) Code(s): Z12.11 - Encounter for screening for malignant neoplasm of colon Category: Medical (5) Chronic upper abdominal pain: Code(s): R10.10 - Upper abdominal pain, unspecified; G89.29 - Other chronic pain Category: Medical Plan 62 YF followed in GI for GERD and alcohol-related liver disease - unclear if patient has nina cirrhosis since she has a normal platelet count, INR and albumin level. She is trying to cut back on her alcohol intake. Pt was reminded to have labs checked (ordered during her last TV appt).? Abd US with with elastography showed hepatic steatosis and mild to moderate fibrosis stage F2 - F3?. Patient was advised to schedule a barium swallow for evaluation of dysphagia 02/15/23 Complains of chronic upper abdominal pain and abdominal bloating Belly swells up and she feels full after eating Pt advised to schedule an Abd CT scan with contrast for evaluation of abd pain and for HCC surveillance FU in 3 months. Orders: Orders CT abdomen wo/w IV con 02/15/23 R10.10 - Upper abdominal pain, unspecified, G89.29 - Other chronic pain, K74.60 - Unspecified cirrhosis of liver Coding Level of Care Code Est Pt Level 4 (29191) Diagnoses Cirrhosis K74.60 Dysphagia, pharyngoesophageal phase R13.14 GERD (gastroesophageal reflux disease) K21.9 Colon cancer screening Z12.11 Chronic upper abdominal pain R10.10; G89.29 Time Spent (min) 25
[2023-02-15 12:52] VITALS: BP 110/51; PULSE 64; BMI 31.0
== END 2023-02-15 15:26 | disposition home or self-care (01) ==
PROVIDERS: PCP Student in an Organized Health Care Education/Training Program; Visit Provider Internal Medicine Gastroenterology
DX: K74.60 Unspecified cirrhosis of liver (principal); R13.14 Dysphagia, pharyngoesophageal phase; K21.9 Gastro-esophageal reflux disease without esophagitis; Z12.11 Encounter for screening for malignant neoplasm of colon; R10.10 Upper abdominal pain, unspecified; G89.29 Other chronic pain
CPT/HCPCS: 99499

== ENCOUNTER → 2023-02-15 12:38 | Outpatient (BNVA) | payer MEDICAID, SELFPAY | PROVIDERS: PCP Student in an Organized Health Care Education/Training Program; Visit Provider Internal Medicine Gastroenterology ==

== ENCOUNTER 2023-02-16 11:03 | Outpatient (REF) | payer MEDICAID, SELFPAY ==
--- NOTE | 2023-02-16 12:30 | PFT_ITS ---
Forced vital capacity is 67%, FEV1 65%, and FEV1/FVC ratio 77. KES86-66 57% and MVV 53%. Post-bronchodilator therapy, there is no significant improvement. Total lung capacity 82% and residual volume is 114%. Diffusion capacity is to 27%, which is markedly decreased. CONCLUSION: This spirometry findings are suggestive of moderate degree of restrictive pulmonary disorder and only mild obstructive airway disorder. However, total lung capacity is normal and residual volume is actually slightly increased indicating air trapping. Diffusion capacity markedly decreased which is out of proportion to the other findings. This may be due to the presence of pulmonary emphysema. Non-pulmonary factors and clinical correlation is recommended. Elder Salcido MD MSB/MODL / [phone]
--- NOTE | 2023-02-16 12:34 | CA_ITS ---
Transthoracic Echocardiogram Patient (Last, First, Middle): Shireen Tavarez, Gender: Female Date of : 1960 Age: 62 Procedure Date: 02/16/2023 Procedure Type: Transthoracic Echocardiogram Location: OP Height: 149.86 cm Weight: 79.38 kg BSA: 1.74 m2 Heart Rate: bpm BP: 112 / 60 mmHg Bottom Liquor Attendant: TO Referring MD: Humberto Yap MD Acute Coordinator: Christian Phillips MD Symptoms: I27.20 - Pulmonary hypertension, unspecified Study Quality: Technically Difficult/Contrast ECG Rhythm: Sinus Conclusions: - 1. Mildly reduced LV systolic function with LVEF of 45-50% with grade 2 diastolic dysfunction 2. Mildly dilated left and right atrium 3. Normal cardiac valvular Dopplers 4. Normal measured RV systolic pressure 5. No gross pericardial effusion Findings Procedure Information Contrast agent, definity, is being given per protocol without apparent complications. Left Ventricle Normal left ventricular cavity size. There is mildly increased left ventricular wall thickness. The left ventricular systolic function is mildly decreased. The visually estimated ejection fraction is between 45-50%. Spectral Doppler is indicative of a pseudonormal filling pattern. E/E prime ratio is >15, consistent with elevated filling pressures. Evidence suggests grade II (moderate) diastolic dysfunction. Right Ventricle Normal right ventricular cavity size. Atria The left atrium is mildly dilated. Interatrial shunt cannot be excluded. The right atrium is mildly dilated. Aortic Valve The aortic valve structure and function is likely normal. There is no aortic valve stenosis. There is no aortic valve regurgitation. Mitral Valve There is mild anterior and posterior mitral leaflet thickening. There is trace mitral valve regurgitation. There is no mitral valve stenosis. Pulmonic Valve The pulmonic valve was not well visualized. Tricuspid Valve Likely normal tricuspid valve structure and function. There is trace tricuspid valve regurgitation. The right ventricular systolic pressure is normal. The right ventricular systolic pressure is 19 mmHg. Normal right atrial pressure. There is no evidence of pulmonary hypertension. Great Vessels The pulmonary artery was not well visualized. There is no dilatation of the ascending aorta. Venous The inferior vena cava is normal in size and collapses greater than 50% with inspiration. Pericardium/Pleural There is no evidence of pericardial effusion. Prior Study Comparison No prior study available for comparison. Measurements 2D Linear Measurements IVSd: 1.15 0.6-0.9/0.6-1.0 cm LVIDd: 5.02 3.9-5.3/4.2-5.9 cm LVIDd Index: 2.89 2.4-3.2/2.2-3.1 cm/m2 LVIDs: 4.06 2.0-3.6 cm LVPWd: 1.08 0.7-1.1 cm LV Mass: 264.76 67-162/88-224 g LV Mass Index: 152.16 43-95/49-115 g/m2 LVOT Diam: 1.90 3.0+(-)1.3 cm 2D Systolic Function EF 4C: 44.20 >55% EF 2C: 44.90 >55% EF BiP: 45.50 >55% Mitral Valve MV VTI: 0.36 MV Pk Sandoval: 1.29 MV Mn Sandoval: 0.74 MV Pk Grad: 7.00 MV Mn Grad: 3.00 MV Pk E: 1.05 MV PK A: 0.89 MV Decel Time: 234.00 E/A: 1.20 E'Lateral: 5.55 E'Medial: 4.13 E/E' Med: 25.40 E/E' Lat: 18.90 PHT: 68.00 MVA PHT: 3.24 MVA Continuity: 1.91 Decel Wilkes: 4.48 Aortic Valve AoV Pk Sandoval: 1.52 AoV Mn Sandoval: 1.10 AoV VTI: 0.36 AoV Pk Grad: 9.00 Aov Mn Grad: 5.00 GAMAL Cont.VTI: 1.92 LVOT LVOT Pk Sandoval: 0.88 LVOT Mn Sandoval: 0.70 LVOT VTI: 0.24 LVOT Pk Grad: 3.00 LVOT Mn Grad: 2.00 LVOT Diam: 1.90 LVOT Area: 2.84 Diastolic Function MV Pk E: 1.05 MV Pk A: 0.89 E/A: 1.20 E'Medial: 4.13 E/E' Med: 25.40 E' Laterial: 5.55 E/E' Lat: 18.90 Right Ventricle TAPSE (mm): 26.00 TVS' Sandoval: 11.00 Tricuspid Valve TR Pk Sandoval: 2.00 TR Pk Grad: 16.00 RA Press: 3.00 RVSP: 19.00 Great Vessels Aorta Sinus of Valsalva: 3.11 2.0-3.5 cm Ao Asc: 3.00 2.1-3.4 cm Updated in Other Vendor System with Status of Final Christian Phillips MD electronically signed on 02/16/2023 6:13:49 PM with status of Final
== END 2023-02-16 11:04 | disposition home or self-care (01) ==
LOC: HO.RESP 11:03
PROVIDERS: PCP Student in an Organized Health Care Education/Training Program; Visit Provider Hospitalist
DX: I27.20 Pulmonary hypertension, unspecified (principal); G47.33 Obstructive sleep apnea (adult) (pediatric); J44.9 Chronic obstructive pulmonary disease, unspecified
CPT/HCPCS: 93306; 94010; 94727; 94729; Q9957

== ENCOUNTER → 2023-02-16 12:30 | Outpatient (BNV) | payer MEDICAID, SELFPAY | PROVIDERS: PCP Student in an Organized Health Care Education/Training Program; Visit Provider Internal Medicine | DX: G47.33 Obstructive sleep apnea (adult) (pediatric) (principal); J44.9 Chronic obstructive pulmonary disease, unspecified | CPT/HCPCS: 94060; 94727; 94729 ==

== ENCOUNTER → 2023-02-16 12:34 | Outpatient (BNV) | payer MEDICAID, SELFPAY | PROVIDERS: PCP Student in an Organized Health Care Education/Training Program; Visit Provider Internal Medicine Cardiovascular Disease | DX: I34.81 Nonrheumatic mitral (valve) annulus calcification (principal) | CPT/HCPCS: 93306 ==

== ENCOUNTER 2023-02-19 10:03 | Outpatient (REF) | payer MEDICAID, SELFPAY ==
[2023-02-24 13:43] LABS: HPV mRNA E6/E7 rflx Not Detected (Not Detected)
== END 2023-02-19 10:04 | disposition home or self-care (01) ==
LOC: HO.HHCLNP 10:03
PROVIDERS: Visit Provider Advanced Practice Midwife
DX: Z12.4 Encounter for screening for malignant neoplasm of cervix (principal); Z11.51 Encounter for screening for human papillomavirus (HPV)
CPT/HCPCS: 87624; 88142

== ENCOUNTER 2023-03-05 09:48 | Outpatient (AMB) | payer MEDICAID, SELFPAY ==
--- NOTE | 2023-03-05 09:55 | A.OFFVIS_ITS ---
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 The patient states that for the last year or so she has been getting progressively more short of breath. She also has episodes when she is laying flat and she gets short of breath. She can also wake up short of breath from a sound sleep. The patient also has snoring and she does have an elevated Rittman score of 11/24. The patient should have a sleep study in the near future. In the meantime we did taken for a walking oximetry the patient did desaturate down to 90%. She was qualify for oxygen. Therefore, will perform an overnight oximetry to see the patient needs oxygen at nighttime. The patient also is having issues with anemia. Since 2019 she has decreased her hemoglobin by 4 g. I explained the patient that with this decrease hemoglobin that she may have increased work of breathing based on her oxygen carrying capacity. She was recently started on medications for anemia as per the patient. Patient also has noticed lower extremity edema. She also has a very distended abdomen. Sent clear how much is ascites but explained to the p atient that with her abdominal pressure being so elevated and her bed so firm makes it difficult for her lungs to expand. As far as imaging she did have a CT scan of the chest that we personally reviewed from November 2022. She does have pulmonary nodules that need follow-up. She is an ex-smoker so therefore more recent to follow as she is considered high risk for cancer. It was given a rads 3 score. This is likely because she is on the lung cancer screening program. The patient had previous CT scans that we also reviewed from back in 2019 which she had the same degree of scarring at the bases. Therefore the basilar scarring that she has in her current CT scan is likely result of a previous infection. She states that she was hospitalized with bad pneumonia back in 2012. 03/05/2023 the patient is here for pulmo nary follow-up visit. The patient complains of dyspnea on exertion. Seems to be getting worse. Moderate with activity. Does get better with rest. The patient did undergo a pulmonary function study which we personally reviewed. She had a significantly low diffusing capacity of 27%. Therefore we had her undergo a 6 minutes walk test and the patient did desaturate down to 87%. She did well on 2 L pulse. Will start her on portable oxygen. She also should be using oxygen at nighttime. We have requested an overnight oximetry but she has not had had as of yet. The patient also underwent an echocardiogram. Appears to have a low EF 45-50%. She she continue with current respiratory therapy. Will go ahead and start her oxygen. [facility] Medical History (Updated 02/15/23 @ 16:06 by Julissa Newberry MD) Dyspnea Asthma-COPD overlap syndrome Alcohol use History of methadone use Personal history of nicotine dependence Asthma Obesity (BMI 30-39.9) GERD (gastroesophageal reflux disease) Cirrhosis Vitamin D deficiency Hypertension Dyslipidemia Non-toxic multinodular goiter Osteoporosis Diabetic 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 with type 2 diabetes mellitus assisted (current) use of insulin Diabetes type 2, uncontrolled Surgical History Status post biopsy of thyroid gland History of colonoscopy (~2016) Hx of cataract extraction History of esophagogastroduodenoscopy (EGD) (~2020) Hx of cardiac cath (~12/2015) Hx of cholecystectomy (~1980) History of bladder surgery (~06/2019) Family History Father Esophageal cancer Mother Diabetes mellitus HTN (hypertension) Household Members: Spouse Alcohol intake: current Alcohol intake frequency: 3 or more drinks per day Alcohol type: beer Patient Tobacco Use Status: Former Tobacco user Quit Date: 11/2012 Tobacco use type: Cigarette Years Smoked: Onset 27, 2ppd x 24yrs, 48pyh, quit 11/2012 Advance Directives Date on File: 11/18/15 Review of Systems Const Reports as per HPI, Reports daytime sleepiness and Reports difficulty sleeping ENT Reports no additional complaints Card Denies chest pain, Denies chest pain at rest, Denies chest pain with activity and Reports dyspnea on exertion Resp Denies chest congestion, Reports cough, Reports dyspnea on exertion and Denies wheezing GI Reports no additional complaints Musc Reports myalgias Skin/Breast Reports pruritus and Denies wounds Neuro Reports no additional complaints Psych Denies no additional complaints Neftali/Lymph Denies lymphadenopathy Aller/Immun Denies wheezing Physical Exam Vital Signs: Last Vital Signs Pulse 85 03/05/23 09:57 Pulse Ox 95 03/05/23 09:57 Oxygen Delivery Method Room Air 03/05/23 09:57 BMI result Body Mass Index 31.0 Const General: healthy appearing and no acute distress Orientation/consciousness: patient oriented x3 HEENT Ears: hearing grossly normal bilaterally Eyes Pupils: Equal, round and reactive pupils present Neck Neck: Yes normal visual inspection Chest Chest palpation & inspection: normal inspection of the chest Resp Effort & Inspection: normal respiratory effort Cardio Rate: regular rate Rhythm: regular rhythm Heart sounds: S1 normal heart sound present and S2 normal heart sound present GI Auscultation: normal bowel sounds Skin General skin exam: no rashes or lesions noted Neuro General: patient oriented x3, gait normal and moves all extremities Cranial nerves: Yes Equal, round and reactive pupils present Psych Appearance: grossly normal Mental Status: mental status grossly normal Office Procedures 6 Minute Walk Time:: 13:32 SPO2 % at rest: 92 Pulse at rest: 89 SPO2 % during excercise: 87 Pulse during excercise: 98 Distance in yards walked: 200 [place] Score: 5 Supplemental Oxygen: desaturated with activity to 87% placed on 2L/pulse and pulse ox improved to 93% with activity. 47016 - 6 Minute Walk Assessment & Plan Assessment & Plan (1) Asthma-COPD overlap syndrome: Code(s): J44.9 - Chronic obstructive pulmonary disease, unspecified (2) CHERISE (obstructive sleep apnea): Code(s): G47.33 - Obstructive sleep apnea (adult) (pediatric) (3) Dyspnea: Code(s): R06.00 - Dyspnea, unspecified Qualifiers: Dyspnea type: dyspnea on exertion Qualified Code(s): R06.09 - Other forms of dyspnea Plan continue symbicort ANNETTE as needed start Oxygen 2L/pulse with activity and 2L/continues with sleep Overnight oximetry, ?need for nocturnal oxygen supplementation F/U 4 months Coding Level of Care Code Est Pt Level 4 (89144) Diagnoses Asthma-COPD overlap syndrome J44.9 CHERISE (obstructive sleep apnea) G47.33 Dyspnea on exertion R06.09 Dyspnea type: dyspnea on exertion CPT Codes Coding ([id number]) Time Spent (min) 16
[2023-03-05 09:57] VITALS: PULSE 85; O2SAT 95; BMI 31.0
[2023-03-05 13:33] VITALS: PULSE 89; O2SAT 92
== END 2023-03-05 10:24 | disposition home or self-care (01) ==
PROVIDERS: PCP Student in an Organized Health Care Education/Training Program; Referring Provider Student in an Organized Health Care Education/Training Program; Visit Provider Hospitalist
DX: J44.9 Chronic obstructive pulmonary disease, unspecified (principal); G47.33 Obstructive sleep apnea (adult) (pediatric); R06.09 Other forms of dyspnea
CPT/HCPCS: 94618; 99214

== ENCOUNTER → 2023-03-05 09:48 | Outpatient (BNVA) | payer MEDICAID, SELFPAY | PROVIDERS: PCP Student in an Organized Health Care Education/Training Program; Visit Provider Hospitalist | DX: J44.9 Chronic obstructive pulmonary disease, unspecified (principal); G47.33 Obstructive sleep apnea (adult) (pediatric); R06.09 Other forms of dyspnea | CPT/HCPCS: 94618; 99212 ==

== ENCOUNTER 2023-03-26 09:59 | Outpatient (REF) | payer MEDICAID, SELFPAY ==
--- NOTE | ~2023-03-26 | CT_ITS ---
EXAMINATION: CT ABDOMEN WITHOUT AND WITH CONTRAST CLINICAL INFORMATION: Upper abdominal pain, bloating and distention. Screening for hepatocellular carcinoma/ascites. COMPARISON: CT abdomen and pelvis 12/21/2021. TECHNIQUE: Contiguous axial thin section helical images of the abdomen were performed before and after the administration of 85 mL of Omnipaque 350 intravenous contrast. The data set was reformatted in the coronal and sagittal planes and reviewed on an independent workstation. This CT examination was performed using dose optimization techniques as appropriate, variously including the following: *Automated exposure control *Adjustment of mA and/or kV according to patient size (this includes techniques or standardized protocols for targeted exams where dose is matched to indication/reason for exam; i.e. extremities or head) *Use of iterative reconstruction technique DLP: 976 mGy-cm FINDINGS: LUNG BASES: Chronic groundglass disease at the lung bases are unchanged compared to CT abdomen and pelvis 12/21/2021 LIVER, GALLBLADDER, AND BILIARY TREE: Cirrhotic liver with nodular contour, relative atrophy of the right hepatic lobe and hypertrophy of the left hepatic lobe consistent with cirrhosis.. On arterial phase imaging there is no focal arterial enhancing mass. On portal venous phase imaging there is no area of relative washout. Evidence of portal hypertension with recanalized umbilical vein, dilated main portal vein. No ascites. No biliary ductal dilatation. Cholecystectomy. PANCREAS: Fatty replacement of the pancreas. No visible pancreatic mass or ductal dilatation. SPLEEN: Focal hypodensities in the spleen are stable and nonspecific but most likely represent hemangiomas. Mild splenomegaly measuring 12.3 cm. ADRENAL GLANDS AND KIDNEYS: No adrenal mass. Symmetric nephrograms. No nephrolithiasis or hydronephrosis. No suspicious renal mass. BOWEL LOOPS: The visible small and large bowel loops are unremarkable. No mesenteric mass or fluid. LYMPH NODES: Mildly prominent celiac axis and elsa hepatic lymph nodes are stable compared to prior and commonly seen with chronic liver disease. VASCULAR: Moderate aortoiliac atherosclerosis without aneurysm. BONES: Degenerative changes in the spine. No suspicious osseous lesions. CT/CT abdomen wo/w IV con IMPRESSION: Cirrhosis without evidence of hepatocellular carcinoma. Portal hypertension, patent portal vein, mild splenomegaly. No ascites. Fleischner guidelines were followed.
[2023-03-26 10:38] LABS: Blood Urea Nitrogen 11 mg/dL (9-16); Estimated Glomerular Filt Rate > 60
[2023-03-26] MEDS: iohexoL 350 MG/ML 100 ML INFUS..BTL IV (11:02)
== END 2023-03-26 10:00 | disposition home or self-care (01) ==
LOC: HO.CT 09:59
PROVIDERS: PCP Student in an Organized Health Care Education/Training Program; Visit Provider Internal Medicine Gastroenterology
DX: R10.10 Upper abdominal pain, unspecified (principal); G89.29 Other chronic pain; K74.60 Unspecified cirrhosis of liver
CPT/HCPCS: 36415; 74170; 82565; 84520; Q9967

== ENCOUNTER 2023-04-16 13:52 | Outpatient (AMB) | payer MEDICAID, SELFPAY ==
[2023-04-16 14:22] VITALS: BP 120/54; PULSE 79; BMI 30.8
--- NOTE | 2023-04-16 14:22 | MHC.OFFVIS ---
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 Flor? Dyspnea pt its feeling some sharp pain on the chest. Quilt Stuffer Required: No Accompanied by: Daughter Allergies cornflower [Cornflower] Allergy (Unknown, Verified 03/05/23 09:59) ITCHY EYES/HIVES peach [PEACH] Allergy (Unknown, Verified 03/05/23 09:59) NATURAL FRUIT - MOUTH ITCHES cornell [cherries] Allergy (Verified 03/05/23 09:59) Unknown No Known Drug Allergies Allergy (Verified 03/05/23 09:59) none apples Allergy (Unknown, Uncoded 03/05/23 09:59) Unknown peanut Allergy (Unknown, Uncoded 03/05/23 09:59) Unknown Medication List - Last Reconciled 04/16/23 by Billy Malcolm MD acamprosate 666 mg PO TID albuterol sulfate 90 mcg/actuation (ProAir HFA) 2 puffs PO Q6H PRN atorvastatin TAKE 1 TABLET BY MOUTH AT BEDTIME blood pressure test kit-large As directed blood sugar diagnostic (FreeStyle Test strips) 4 times a day blood-glucose meter (FreeStyle [place] Lite kit) As directed budesonide-formoterol 160-4.5 mcg/actuation (Symbicort) 2 puffs PO calcium carbonate (Oyster Shell Calcium) 500 mg PO BID canagliflozin (Invokana) 300 mg PO QAM cetirizine 10 mg PO DAILY cholecalciferol (vitamin D3) (Vitamin D3) 50 mcg PO QAM fenofibrate micronized 134 mg PO DAILY flash glucose scanning reader ([employer]Style Lakeisha 2 [place]) As directed flash glucose sensor (FreeStyle Lakeisha 2 Sensor kit) every 14 days gabapentin 100 mg PO BEDTIME insulin regular hum U-500 conc (Humulin R U-500 (Conc) Insulin Kwikpen) 250 units before breakfast ; 30 days lancets (FreeStyle Lancets) As directed lancets (TRUEplus Lancets) As directed losartan 25 mg PO QAM mirabegron ER (Myrbetriq) 25 mg PO QAM nystatin-triamcinolone 100,000-0.1 unit/g-% 1 appl topical DAILY pantoprazole 20 mg PO DAILY pantoprazole 40 mg PO DAILY 30 days pen needle, diabetic (BD Ultra-Fine Debbie Pen Needle) As directed once a day sertraline (Zoloft) 50 mg PO DAILY trazodone 100 mg PO BEDTIME PRN HPI HPI Comments History of Present Illness Details Shireen has been referred for cardiac evaluation. There is a question of abnormal EKG. Patient herself denies any history of coronary disease myocardial infarction or cardiomyopathy or in fact anything cardiac related. There is a history of asthma/COPD overlap syndrome. There is also mention of cirrhosis of the liver related to history of prior alcohol excess. She is also on supplemental oxygen. She states that with activity, she can get short of breath. Some random chest pains in a sharp fashion along the left chest. However, not clearly exertional and not classical for angina. She seems to have numerous risk factors for coronary disease. 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 Diabetes type 2, uncontrolled Surgical History Status post biopsy of thyroid gland History of colonoscopy (~2016) Hx of cataract extraction History of esophagogastroduodenoscopy (EGD) (~2020) Hx of cardiac cath (~12/2015) Hx of cholecystectomy (~1980) History of bladder surgery (~06/2019) Family History Father Esophageal cancer Mother Diabetes mellitus HTN (hypertension) Social History Household Members: Spouse Alcohol intake: current Alcohol intake frequency: 3 or more drinks per day Alcohol type: beer Patient Tobacco Use Status: Former Tobacco user Quit Date: 11/2012 Tobacco use type: Cigarette Years Smoked: Onset 27, 2ppd x 24yrs, 48pyh, quit 11/2012 Advance Directives Date on File: 11/18/15 Review of Systems Const Reports chills, Reports fatigue, Reports fever(s), Reports frequent falls, Reports weakness, Reports weight gain and Reports weight loss ENT Reports dizziness Card Reports chest pain, Reports leg edema, Reports lightheadedness, Reports palpitations, Reports dyspnea, Reports dyspnea on exertion and Reports orthopnea Resp Reports cough, Reports dyspnea and Reports dyspnea on exertion GI Reports bloating and Reports change in bowel habits Musc Reports muscle weakness, Reports numbness and Reports tingling Neuro Reports dizziness, Reports frequent falls, Reports numbness, Reports tingling and Reports weakness Endo Reports fatigue and Reports palpitations Physical Exam Vital Signs: Last Vital Signs Pulse 79 04/16/23 14:22 BP 120/54 L 04/16/23 14:22 BMI result Body Mass Index 30.8 Const General: comfortable and no acute distress Orientation/consciousness: patient oriented x3 HEENT Other: Unremarkable Head: Yes normal to inspection Neck Neck: Yes normal visual inspection Chest Chest palpation & inspection: normal inspection of the chest Resp Auscultation: clear to auscultation bilaterally Cardio Palpation: normal PMI Heart sounds: S1 normal heart sound present, S2 normal heart sound present, no gallops, no murmurs and no rubs GI Palpation (GI): Soft to palpation Back/Spine/Pelvis Other: unremarkable Skin General skin exam: no rashes or lesions noted Neuro General: patient oriented x3 Extrem General: Yes normal to inspection Psych Mental Status: mental status grossly normal Office Procedures EKG Details: EKG with sinus rhythm at 79/Min; anterolateral nonspecific ST-T changes noted. [id number], Complete Assessment & Plan Assessment & Plan (1) Precordial chest pain: Code(s): R07.2 - Precordial pain (2) Cardiomyopathy: Code(s): I42.9 - Cardiomyopathy, unspecified Plan EKG as above shows sinus rhythm with nonspecific ST-T changes. T inversions in V1 to V3. Echocardiogram with LVEF of 45-50% with moderate diastolic dysfunction. Considering her extensive risk factor profile, she needs workup for underlying obstructive CAD. Highly unlikely to exercise on the treadmill due to comorbidities and requiring supplemental oxygen. Hopefully we should be able to do a coronary CTA. Discussed with patient and [id number] and they agree. We can follow-up once this is completed. Orders: Orders Basic Metabolic Panel Today R07.2 - Precordial pain CT Cardiac Coronary Angio Today I25.10 - Atherosclerotic heart disease of jackson coronary artery without angina pectoris Coding Level of Care Code New Pt Level 4 (37000) Diagnoses Precordial chest pain R07.2 Cardiomyopathy I42.9 CPT Codes EKG - CPT: 90182-[id number], Complete ([id number])
== END 2023-04-16 14:57 | disposition home or self-care (01) ==
PROVIDERS: PCP Student in an Organized Health Care Education/Training Program; Referring Provider Student in an Organized Health Care Education/Training Program; Visit Provider Internal Medicine
DX: R07.2 Precordial pain (principal); I42.9 Cardiomyopathy, unspecified
CPT/HCPCS: 93010; 99204

== ENCOUNTER → 2023-04-16 13:52 | Outpatient (BNVA) | payer MEDICAID, SELFPAY | PROVIDERS: PCP Student in an Organized Health Care Education/Training Program; Visit Provider Internal Medicine | DX: R07.2 Precordial pain (principal); I42.9 Cardiomyopathy, unspecified | CPT/HCPCS: 93005; 99202 ==

== ENCOUNTER 2023-05-10 09:09 | Outpatient (AMB) | payer MEDICAID, SELFPAY ==
[2023-05-10 09:11] VITALS: BMI 30.8
--- NOTE | 2023-05-10 09:11 | MHC.OFFVIS ---
Intake Vital Signs 05/10/23 09:11 Height 5 ft 3 in Weight 174 lb BMI 30.8 Intake Visit Reasons: OV-Left knee injection-last injection 02/07/23 Intake Note: Shireen is a 62 year old female who presents with her daughter in law for a follow up Left knee injection 02/07/2023. Patient reports her last injection helped and would like a repeat injection. Patient describes her knee pain as achy in nature. She has done physical therapy exercises which aggravated her pain. She has also tried Tylenol and anti-inflammatory medicines which gave her minimal relief. She would like to hold off on surgery if at all possible. Allergies cornflower [Cornflower] Allergy (Unknown, Verified 05/10/23 09:54) ITCHY EYES/HIVES peach [PEACH] Allergy (Unknown, Verified 05/10/23 09:54) NATURAL FRUIT - MOUTH ITCHES cornell [cherries] Allergy (Verified 05/10/23 09:54) Unknown No Known Drug Allergies Allergy (Verified 05/10/23 09:54) none apples Allergy (Unknown, Uncoded 03/05/23 09:59) Unknown peanut Allergy (Unknown, Uncoded 03/05/23 09:59) Unknown Medication List - Last Reconciled 05/10/23 by Geo Tomlinson MD acamprosate 666 mg PO TID albuterol sulfate 90 mcg/actuation (ProAir HFA) 2 puffs PO Q6H PRN atorvastatin 40 mg PO BEDTIME blood pressure test kit-large As directed blood sugar diagnostic (FreeStyle Test strips) 4 times a day blood-glucose meter (FreeStyle [place] Lite kit) As directed budesonide-formoterol 160-4.5 mcg/actuation (Symbicort) 2 puffs PO calcium carbonate (Oyster Shell Calcium) 500 mg PO BID canagliflozin (Invokana) 300 mg PO QAM cetirizine 10 mg PO DAILY cholecalciferol (vitamin D3) (Vitamin D3) 50 mcg PO QAM fenofibrate micronized 134 mg PO DAILY flash glucose scanning reader ([employer] Lakeisha 2 [place]) As directed flash glucose sensor (FreeStyle Lakeisha 2 Sensor kit) every 14 days gabapentin 100 mg PO BEDTIME insulin regular hum U-500 conc (Humulin R U-500 (Conc) Insulin Kwikpen) 250 units before breakfast ; 30 days lancets (FreeStyle Lancets) As directed lancets (TRUEplus Lancets) As directed losartan 25 mg PO QAM mirabegron ER (Myrbetriq) 25 mg PO QAM nystatin-triamcinolone 100,000-0.1 unit/g-% 1 appl topical DAILY pantoprazole 20 mg PO DAILY pantoprazole 40 mg PO DAILY 30 days pen needle, diabetic (BD Ultra-Fine Debbie Pen Needle) As directed once a day sertraline (Zoloft) 50 mg PO DAILY trazodone 100 mg PO BEDTIME PRN PFSH Medical History Dyspnea Asthma-COPD overlap syndrome Alcohol use History of methadone use Personal history of nicotine dependence Asthma Obesity (BMI 30-39.9) GERD (gastroesophageal reflux disease) Cirrhosis Vitamin D deficiency Hypertension Dyslipidemia Non-toxic multinodular goiter Osteoporosis Diabetic 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 with type 2 diabetes mellitus care home (current) 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 insulin Diabetes type 2, uncontrolled Surgical History Status post biopsy of thyroid gland History of colonoscopy (~2016) Hx of cataract extraction History of esophagogastroduodenoscopy (EGD) (~2020) Hx of cardiac cath (~12/2015) Hx of cholecystectomy (~1980) History of bladder surgery (~06/2019) Family History Father Esophageal cancer Mother Diabetes mellitus HTN (hypertension) Social History Household Members: Spouse Alcohol intake: current Alcohol intake frequency: 3 or more drinks per day Alcohol type: beer Patient Tobacco Use Status: Former Tobacco user Quit Date: 11/2012 Tobacco use type: Cigarette Years Smoked: Onset 27, 2ppd x 24yrs, 48pyh, quit 11/2012 Advance Directives Date on File: 11/18/15 Physical Exam Vital Signs: BMI result Body Mass Index 30.8 Const Other: Well-nourished well-developed very friendly female awake alert and oriented x3 in no acute distress Neuro Other: Bilateral lower extremity examination shows good capillary refill, no skin lesions noted, normal sensation light touch Left knee examination shows a minimal effusion, palpable crepitus with range of motion, pain with range of motion, no instability Office Procedures Joint Injection/Drain Joint Injection/Drain Primary Site: left knee Prep: site was prepped using aseptic technique Injected: 40 mg of, DepoMedrol and 1% plain lidocaine Procedure: The patient tolerated the procedure well Coding - Large joint Procedure code (CPT) selection complete Assessment & Plan Assessment & Plan (1) Arthritis of left knee: Code(s): M17.12 - Unilateral primary osteoarthritis, left knee Plan Ms. Tavarez presents with left knee pain due to degenerative joint disease. I had a lengthy discussion with the patient regarding the treatment options. She wishes to hold off on surgery for as long as possible. I agree with this plan. The risks and benefits of a left knee cortisone injection were discussed at length with the patient. The patient wished to proceed with the injection. She tolerated the injection well. She will continue with her home exercise program. She will follow up with me on an as-needed basis should her symptoms not plateau at an unacceptable level over the next few months. Feel free to call me at any time should questions regarding her orthopedic management arise. I spent 22 minutes in reviewing the patient's records and imaging studies, seeing the patient and documenting in the medical record. Orders: Orders AMB Joint Injection/Aspiration Today M17.12 - Unilateral primary osteoarthritis, left knee Coding Level of Care Code Est Pt Level 2 (64087) Diagnoses Arthritis of left knee M17.12 CPT Codes Coding - Large joint: 77105 - Large joint ([id number])
== END 2023-05-10 10:05 | disposition home or self-care (01) ==
PROVIDERS: PCP Student in an Organized Health Care Education/Training Program; Visit Provider Orthopaedic Surgery
DX: M17.12 Unilateral primary osteoarthritis, left knee (principal)
CPT/HCPCS: 20610; 99213

== ENCOUNTER → 2023-05-10 09:09 | Outpatient (BNVA) | payer MEDICAID, SELFPAY | PROVIDERS: PCP Student in an Organized Health Care Education/Training Program; Visit Provider Orthopaedic Surgery | DX: M17.12 Unilateral primary osteoarthritis, left knee (principal) | CPT/HCPCS: 20610; 99212; J1020 ==

== ENCOUNTER 2023-05-24 10:00 | Outpatient (AMB) | payer MEDICAID, SELFPAY ==
--- NOTE | 2023-05-24 10:05 | MHC.OFFVIS ---
Intake Vital Signs 05/24/23 10:10 Height 5 ft 3 in Weight 175 lb BMI 31.0 BP 110/53 L Blood Pressure Location Lt brachial Position Sitting Pulse 70 Intake Visit Reasons: 3 month follow up abdominal pain and constipation Intake Note: Patient 3 month for abdominal pain, constipation ad Abdominal CT results. Patient cc: abdominal pain with bloating, constipation and swallowing problems with her tablets. Denies any other GI issues. 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 Accompanied by: Family/Other Allergies cornflower [Cornflower] Allergy (Unknown, Verified 05/24/23 10:04) ITCHY EYES/HIVES peach [PEACH] Allergy (Unknown, Verified 05/24/23 10:04) NATURAL FRUIT - MOUTH ITCHES cornell [cherries] Allergy (Verified 05/24/23 10:04) Unknown No Known Drug Allergies Allergy (Verified 05/24/23 10:04) none apples Allergy (Unknown, Uncoded 03/05/23 09:59) Unknown peanut Allergy (Unknown, Uncoded 03/05/23 09:59) Unknown Medication List - Last Reconciled 05/24/23 by Julissa Newberry MD acamprosate 666 mg PO TID albuterol sulfate 90 mcg/actuation (ProAir HFA) 2 puffs PO Q6H PRN atorvastatin 40 mg PO BEDTIME blood pressure test kit-large As directed blood sugar diagnostic (FreeStyle Test strips) 4 times a day blood-glucose meter (FreeStyle [place] Lite kit) As directed budesonide-formoterol 160-4.5 mcg/actuation (Symbicort) 2 puffs PO calcium carbonate (Oyster Shell Calcium) 500 mg PO BID canagliflozin (Invokana) 300 mg PO QAM cetirizine 10 mg PO DAILY cholecalciferol (vitamin D3) (Vitamin D3) 50 mcg PO QAM fenofibrate micronized 134 mg PO DAILY flash glucose scanning reader (FreeStyle Lakeisha 2 [place]) As directed flash glucose sensor (FreeStyle Lakeisha 2 Sensor kit) every 14 days gabapentin 100 mg PO BEDTIME insulin regular hum U-500 conc (Humulin R U-500 (Conc) Insulin Kwikpen) 250 units before breakfast ; 30 days lancets (FreeStyle Lancets) As directed lancets (TRUEplus Lancets) As directed losartan 25 mg PO QAM mirabegron ER (Myrbetriq) 25 mg PO QAM nystatin-triamcinolone 100,000-0.1 unit/g-% 1 appl topical DAILY pantoprazole 20 mg PO DAILY pantoprazole 40 mg PO DAILY 30 days pen needle, diabetic (BD Ultra-Fine Debbie Pen Needle) As directed once a day sertraline (Zoloft) 50 mg PO DAILY trazodone 100 mg PO BEDTIME PRN HPI 3 month follow up abdominal pain and constipation HPI Details GI CLINIC VISIT FOR THIS 62-YEAR-OLD JAPANESE-SPEAKING FEMALE FOR FOLLOW-UP OF CIRRHOSIS AND GERD. LABS IN [facility]:?12/11/19 LFTS SHOWED AST OF 98, ALT OF 54, ALBUMIN 4.3 05/29 NORMAL CBC WITH PLATELET COUNT OF 218, INR 1, NORMAL BILIRUBIN WITH AST OF 43, ALT 72, ALKALINE PHOSPHATASE 74 ? 09/2017 HEPATITIS-B ANTIBODY WAS POSITIVE, NO OTHER HEPATITIS SEROLOGIES AVAILABLE IN [facility]. IMAGING STUDIES: 03/26/[address] SCAN SHOWED: Cirrhosis without evidence of hepatocellular carcinoma. Portal hypertension, patent portal vein, mild splenomegaly. No ascites. 09/2021 BARIUM SWALLOW - normal 02/16/21 ABD US SHOWED: 1. No sonographic evidence of focal liver lesion. 2. Multiple presumed hemangioma within the spleen, the largest measures 1.4 cm, appears stable since 12/18/2018. 04/2020 abdominal ultrasound with elastography showed:Hepatic steatosis without focal lesion. There is hepatopedal flow seen in the portal vein. Visualized pancreas, gallbladder and the right kidney is unremarkable. On Elastography there is mild to moderate fibrosis stage F2 - F3? ENDOSCOPIC STUDIES: 02/25/21 EGD SHOWED: ESOPHAGUS: A 3-4 mm benign appearing nodule in the mid esophagus at 30 cms - biopsied. GE junction at 38 cms.? Tortuous esophagus with increased tertiary contractions without stricture or ring - empiric balloon dilation was performed with a 19 mm CRE balloon x 60 sec.? Biopsies were obtained from proximal esophagus to check for EOE No esophagitis or Bui's. STOMACH: Moderate non-erosive portal gastropathy involving the gastric body and fundus. Mild gastric erythema. Biopsies were obtained.? Gastric polyp. DUODENUM: Normal - biopsies were negative for celiac sprue. B. Gastric antrum, biopsy: -Mild reactive gastropathy with ectatic mucosal vessels and focal minimal chronic inflammation; negative for H. pylori. -No active inflammation. C. Gastric polyp, biopsy: -Fundic gland polyp; negative for H. pylori. -No active inflammation. D. Esophagus, mid, nodule, biopsy: -Benign squamous mucosa with focal intraepithelial neutrophils and eosinophils, consistent with acute esophagitis; negative for fungi.? -No columnar mucosa present. E. Esophagus, proximal, biopsy: -Squamous mucosa with no specific change.? -No evidence of eosinophilic esophagitis. ? 05/2011 EGD showed hemorrhagic gastritis and no esophageal varices were seen ? 04/2016 colonoscopy was performed by Dr. Hutchinson and showed rectosigmoid region appeared thickened with a few patchy areas of flat hyperplastic appearing tissue. ? Biopsies showed hyperplastic colonic mucosa. ?TODAY'S VISIT Patient 3 month for abdominal pain, constipation and Abdominal CT results. Patient cc: abdominal pain with bloating, constipation and swallowing problems with her tablets. Denies any other GI issues. ?Accompanied by her daughter in law, Machelle who helped interpret for the patient prior to arrival of [facility] forensic engineer Pt denies any change in her symptoms Complains of chronic upper abdominal pain and abdominal bloating Belly swells up and she feels full after eating Chronic constipation and sometimes she can go 5 days without a BM Pt is taking a medication for constipation and does not know the name (advised to check the medication and call back with the name when she gets home today) PAST VISIT: EGD and bx results reviewed with the patient Notes partial improvement in swallowing after EGD with balloon dilation Complains of dysphagia to solids - food gets stuck in the lower chest. Dysphagia with all meals. Swallowing is painful. Drinking 3 beers a day. ?? ? Doing so so - notes abdominal bloating, gas and diarrhea Requests an EGD. Denies heartburn since she is taking medications - Pepcid 10 mg twice a day. ? (Omeprazole was stopped due to concern for side effects of diarrhea). ? Pt admits to drinking 2 beers a day and trying to cut back. ? Rib pain has improved only hurts occasionally. ? She does not take medications as prescribed. 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 Diabetes type 2, uncontrolled Surgical History Status post biopsy of thyroid gland History of colonoscopy (~2016) Hx of cataract extraction History of esophagogastroduodenoscopy (EGD) (~2020) Hx of cardiac cath (~12/2015) Hx of cholecystectomy (~1980) History of bladder surgery (~06/2019) Family History Father Esophageal cancer Mother Diabetes mellitus HTN (hypertension) Social History Household Members: Spouse Alcohol intake: current Alcohol intake frequency: 3 or more drinks per day Alcohol type: beer Patient Tobacco Use Status: Former Tobacco user Quit Date: 11/2012 Tobacco use type: Cigarette Years Smoked: Onset 27, 2ppd x 24yrs, 48pyh, quit 11/2012 Advance Directives Date on File: 11/18/15 Review of Systems Const All systems reviewed & are unremarkable except as noted in HPI and below Physical Exam Vital Signs: Last Vital Signs Pulse 70 05/24/23 10:10 BP 110/53 L 05/24/23 10:10 BMI result Body Mass Index 31.0 Const General: healthy appearing and no acute distress Nutritional Appearance: obese Orientation/consciousness: patient oriented x3 Limitations: language barrier HEENT Head: Yes normal to inspection Ears: hearing grossly normal bilaterally Eyes Sclerae: sclerae normal Pupils: Equal, round and reactive pupils present Neck Neck: Yes normal visual inspection Chest Chest palpation & inspection: normal inspection of the chest Resp Effort & Inspection: normal respiratory effort Auscultation: clear to auscultation bilaterally Cardio Palpation: normal PMI Rate: regular rate Rhythm: regular rhythm Heart sounds: S1 normal heart sound present, S2 normal heart sound present and no murmurs GI Palpation (GI): Soft to palpation, nontender and No hepatosplenomegaly present Auscultation: normal bowel sounds Rectal Exam - Female: deferred Skin General skin exam: no rashes or lesions noted Neuro General: patient oriented x3, gait normal and moves all extremities Cranial nerves: Yes Equal, round and reactive pupils present Psych Appearance: grossly normal Mental Status: mental status grossly normal Assessment & Plan Assessment & Plan (1) Chronic upper abdominal pain: Code(s): R10.10 - Upper abdominal pain, unspecified; G89.29 - Other chronic pain (2) Colon cancer screening: Comment: 2016 Colonoscopy was performed by Dr Hutchinson and showed thickened mucosa at 2 cms in the rectum - hyperplastic on bx Repeat colon advised in 10 yrs Code(s): Z12.11 - Encounter for screening for malignant neoplasm of colon (3) Cirrhosis: Comment: (Alcohol-related liver cirrhosis) Code(s): K74.60 - Unspecified cirrhosis of liver (4) Vitamin D deficiency: Code(s): E55.9 - Vitamin D deficiency, unspecified (5) Chronic constipation: Code(s): K59.09 - Other constipation Plan 62 YF followed in GI for GERD and alcohol-related liver disease - unclear if patient has nina cirrhosis since she has a normal platelet count, INR and albumin level. She is trying to cut back on her alcohol intake. Pt was reminded to have labs checked (ordered during her last TV appt).? Abd US with with elastography showed hepatic steatosis and mild to moderate fibrosis stage F2 - F3?. Patient was advised to schedule a barium swallow for evaluation of dysphagia 02/15/23 Complains of chronic upper abdominal pain and abdominal bloating Belly swells up and she feels full after eating Pt advised to schedule an Abd CT scan with contrast for evaluation of abd pain and for HCC surveillance 05/24/23 She was prescribed Linzess 145 mcg daily for constipation FU in 4 months - FU of cirrhosis and chronic constipation Medications: New linaclotide (Linzess) 145 mcg PO DAILY 30 caps 3RF 30 days K59.09 - Other constipation Coding Level of Care Code Est Pt Level 4 (37173) Diagnoses Chronic upper abdominal pain R10.10; G89.29 Colon cancer screening Z12.11 Cirrhosis K74.60 Vitamin D deficiency E55.9 Chronic constipation K59.09 Time Spent (min) 25
[2023-05-24 10:10] VITALS: BP 110/53; PULSE 70; BMI 31.0
== END 2023-05-24 10:53 | disposition home or self-care (01) ==
PROVIDERS: PCP Student in an Organized Health Care Education/Training Program; Visit Provider Internal Medicine Gastroenterology
DX: R10.10 Upper abdominal pain, unspecified (principal); G89.29 Other chronic pain; K74.60 Unspecified cirrhosis of liver; E55.9 Vitamin D deficiency, unspecified; K59.09 Other constipation
CPT/HCPCS: 99214

== ENCOUNTER → 2023-05-24 10:00 | Outpatient (BNVA) | payer MEDICAID, SELFPAY | PROVIDERS: PCP Student in an Organized Health Care Education/Training Program; Visit Provider Internal Medicine Gastroenterology | DX: Z12.11 Encounter for screening for malignant neoplasm of colon (principal); K74.60 Unspecified cirrhosis of liver; R10.10 Upper abdominal pain, unspecified; K59.09 Other constipation; G89.29 Other chronic pain; E55.9 Vitamin D deficiency, unspecified | CPT/HCPCS: 99212 ==

== ENCOUNTER 2023-05-30 13:43 | Outpatient (REF) | payer MEDICAID, SELFPAY ==
--- NOTE | ~2023-05-30 | MM_ITS ---
EXAMINATION: MM SCREENING DIGITAL BREAST TOMOSYNTHESIS, BILATERAL CLINICAL INFORMATION: Screening. Asymptomatic. COMPARISON: Mammography: This study is compared with prior exams dating back to 2018. TECHNIQUE: Digital breast tomosynthesis is performed in both the craniocaudal and mediolateral oblique views along with computer-aided detection (CAD). Synthesized 2D images are generated from the tomosynthesis. FINDINGS: There are scattered areas of fibroglandular density (ACR BI-RADS breast composition Category b). There are no significant masses, abnormal calcifications, or other abnormalities. Few, bilateral, benign, secretory calcifications are present in each breast. MM/MM tomosynthesis screening BI IMPRESSION: No mammographic evidence of malignancy. ASSESSMENT: BI-RADS BI-RADS 2 - Benign Findings RECOMMENDATION: Routine annual mammography screening. 1 year F/U This examination should not preclude the clinical evaluation of a suspicious palpable abnormality. This patient's information was entered into a reminder system with a target due date for their next mammogram.
== END 2023-05-30 13:44 | disposition home or self-care (01) ==
LOC: HO.MAMMO 13:43
PROVIDERS: PCP Student in an Organized Health Care Education/Training Program; Referring Provider Student in an Organized Health Care Education/Training Program; Visit Provider Internal Medicine
DX: Z12.31 Encounter for screening mammogram for malignant neoplasm of breast (principal)
CPT/HCPCS: 77063; 77067

== ENCOUNTER → 2023-05-30 14:00 | Outpatient (BNV) | payer MEDICAID, SELFPAY | PROVIDERS: PCP Student in an Organized Health Care Education/Training Program; Referring Provider Student in an Organized Health Care Education/Training Program; Visit Provider Radiology Diagnostic Radiology | DX: Z12.31 Encounter for screening mammogram for malignant neoplasm of breast (principal) | CPT/HCPCS: 77063; 77067 ==

== ENCOUNTER 2023-06-11 09:37 | Outpatient (AMB) | payer MEDICAID, SELFPAY ==
--- NOTE | 2023-06-11 09:54 | A.OFFVIS_ITS ---
Intake Vital Signs 06/11/23 09:55 Height 5 ft 2 in Weight 175 lb BMI 32.0 Pulse 75 Pulse Source Pulse Oximeter Pulse Oximetry (%) 100 Oxygen Delivery Method Room Air Comment 3 Liters Oxygen([employer]) Intake Visit Reasons: Asthma Insurance Verify Rep Required: No Allergies cornflower [Cornflower] Allergy (Unknown, Verified 06/11/23 09:56) ITCHY EYES/HIVES peach [PEACH] Allergy (Unknown, Verified 06/11/23 09:56) NATURAL FRUIT - MOUTH ITCHES cornell [cherries] Allergy (Verified 06/11/23 09:56) Unknown No Known Drug Allergies Allergy (Verified 06/11/23 09:56) none apples Allergy (Unknown, Uncoded 06/11/23 09:56) Unknown peanut Allergy (Unknown, Uncoded 06/11/23 09:56) Unknown HPI HPI Comments History of Present Illness Details The patient is a 62 year woman with a known history of cirrhosis and asthma presenting with worsening shortness of breath. The patient states that for the last year or so she has been getting progressively more short of breath. She also has episodes when she is laying flat and she gets short of breath. She can also wake up short of breath from a sound sleep. The patient also has snoring and she does have an elevated Terral score of 11/24. The patient should have a sleep study in the near future. In the meantime we did taken for a walking oximetry the patient did desaturate down to 90%. She was qualify for oxygen. Therefore, will perform an overnight oximetry to see the patient needs oxygen at nighttime. The patient also is having issues with anemia. Since 2019 she has decreased her hemoglobin by 4 g. I explained the patient that with this decrease hemoglobin that she may have increased work of breathing based on her oxygen carrying capacity. She was recently started on medications for anemia as per the patient. Patient also has noticed lower extremity edema. She also has a very distended abdomen. Sent clear how much is ascites but explained to the patient that with her abdominal pressure being so elevated and her bed so firm makes it difficult for her lungs to expand. As far as imaging she did have a CT scan of the chest that we personally reviewed from November 2022. She does have pulmonary nodules that need follow-up. She is an ex-smoker so therefore more recent to follow as she is considered high risk for cancer. It was given a rads 3 score. This is likely because she is on the lung cancer screening program. The patient had previous CT scans that we also reviewed from back in 2018 which she had the same degree of scarring at the bases. Therefore the basilar scarring that she has in her current CT scan is likely result of a previous infection. She states that she was hospitalized with bad pneumonia back in 2012. 03/05/2023 the patient is here for pulwi alin follow-up visit. The patient complains of dyspnea on exertion. Seems to be getting worse. Moderate with activity. Does get better with rest. The patient did undergo a pulmonary function study which we personally reviewed. She had a significantly low diffusing capacity of 27%. Therefore we had her undergo a 6 minutes walk test and the patient did desaturate down to 87%. She did well on 2 L pulse. Will start her on portable oxygen. She also should be using oxygen at nighttime. We have requested an overnight oximetry but she has not had had as of yet. The patient also underwent an echocardiogram. Appears to have a low EF 45-50%. She she continue with current respiratory therapy. Will go ahead and start her oxygen. 06/11/2023 the patient is here for a pulkarma ogden follow-up visit. Dyspnea. The oxygen. She does use the oxygen with activity and also sleep. She did not have the overnight test time but does okay because she does need the oxygen with sleep. The patient however did not get the right tanks. She has 2 L continuous. She should be on 2 L pulse. The bigger tanks have been difficult for her to carry. I did call her [employer] company in order to make sure that they provide her with the right conserving device tanks. She does well with a 2 L pulse conserving device tanks we can also consider a portable oxygen concentrator for better portability in the future. She continues to take her cardioprotective medications. Scan of the chest was through the lung cancer screening program back in November 2023. She did have low lung volumes with some atelectasis along with from pulmonary nodules. The patient has follow-up CT scan in November 2023. Will plan to follow-up with her after that. For now she will continue with current respiratory therapy. If she has any issues prior to that she will call for an earlier assessment. 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 Diabetes type 2, uncontrolled Surgical History Status post biopsy of thyroid gland History of colonoscopy (~2016) Hx of cataract extraction History of esophagogastroduodenoscopy (EGD) (~2020) Hx of cardiac cath (~12/2015) Hx of cholecystectomy (~1980) History of bladder surgery (~06/2019) Family History Father Esophageal cancer Mother Diabetes mellitus HTN (hypertension) Social History Household Members: Spouse Alcohol intake: current Alcohol intake frequency: 3 or more drinks per day Alcohol type: beer Patient Tobacco Use Status: Former Tobacco user Quit Date: 11/2012 Tobacco use type: Cigarette Years Smoked: Onset 27, 2ppd x 24yrs, 48pyh, quit 11/2012 Advance Directives Date on File: 11/18/15 Review of Systems Const Reports as per HPI, Reports daytime sleepiness and Reports difficulty sleeping ENT Reports no additional complaints Card Denies chest pain, Denies chest pain at rest, Denies chest pain with activity and Reports dyspnea on exertion Resp Denies chest congestion, Reports cough, Reports dyspnea on exertion and Denies wheezing GI Reports no additional complaints Musc Reports myalgias Skin/Breast Reports pruritus and Denies wounds Neuro Reports no additional complaints Psych Denies no additional complaints Neftali/Lymph Denies lymphadenopathy Aller/Immun Denies wheezing Physical Exam Vital Signs: Last Vital Signs Pulse 75 06/11/23 09:55 Pulse Ox 100 06/11/23 09:55 Oxygen Delivery Method Room Air 06/11/23 09:55 BMI result Body Mass Index 32.0 Const General: healthy appearing and no acute distress Orientation/consciousness: patient oriented x3 HEENT Ears: hearing grossly normal bilaterally Eyes Pupils: Equal, round and reactive pupils present Neck Neck: Yes normal visual inspection Chest Chest palpation & inspection: normal inspection of the chest Resp Effort & Inspection: normal respiratory effort Cardio Rate: regular rate Rhythm: regular rhythm Heart sounds: S1 normal heart sound present and S2 normal heart sound present GI Auscultation: normal bowel sounds Skin General skin exam: no rashes or lesions noted Neuro General: patient oriented x3, gait normal and moves all extremities Cranial nerves: Yes Equal, round and reactive pupils present Psych Appearance: grossly normal Mental Status: mental status grossly normal Assessment & Plan Assessment & Plan (1) Asthma-COPD overlap syndrome: Code(s): J44.9 - Chronic obstructive pulmonary disease, unspecified (2) CHERISE (obstructive sleep apnea): Code(s): G47.33 - Obstructive sleep apnea (adult) (pediatric) (3) Dyspnea: Code(s): R06.00 - Dyspnea, unspecified Qualifiers: Dyspnea type: dyspnea on exertion Qualified Code(s): R06.09 - Other forms of dyspnea Plan continue symbicort ANNETTE as needed start Oxygen 2L/pulse with activity and 2L/continues with sleep. Requesting B cylinders with conserving valve for better portability. LDCT 11/2023 F/U 6 months Coding Level of Care Code Est Pt Level 4 (18253) Diagnoses Asthma-COPD overlap syndrome J44.9 CHERISE (obstructive sleep apnea) G47.33 Dyspnea on exertion R06.09 Dyspnea type: dyspnea on exertion Time Spent (min) 17
[2023-06-11 09:55] VITALS: PULSE 75; O2SAT 100; BMI 32.0
== END 2023-06-11 10:17 | disposition home or self-care (01) ==
PROVIDERS: PCP Student in an Organized Health Care Education/Training Program; Visit Provider Hospitalist
DX: J44.9 Chronic obstructive pulmonary disease, unspecified (principal); G47.33 Obstructive sleep apnea (adult) (pediatric); R06.09 Other forms of dyspnea
CPT/HCPCS: 99214

== ENCOUNTER → 2023-06-11 09:37 | Outpatient (BNVA) | payer MEDICAID, SELFPAY | PROVIDERS: PCP Student in an Organized Health Care Education/Training Program; Visit Provider Hospitalist | DX: J44.9 Chronic obstructive pulmonary disease, unspecified (principal); G47.33 Obstructive sleep apnea (adult) (pediatric); R06.09 Other forms of dyspnea | CPT/HCPCS: 99212 ==

== ENCOUNTER 2023-07-13 12:49 | Outpatient (REF) | payer MEDICAID, SELFPAY ==
[2023-07-13 14:07] LABS: Hemoglobin 13.7 g/dl (12.0-16.0); Mean Corpuscular HGB Conc 32.6 g/dl (31.0-35.0); Mean Corpuscular Hemoglobin 32.3 pg (27.0-33.0); Mean Corpuscular Volume 99.1 fL (80.0-98.0); Mean Platelet Volume 10.5 fL (9.4-12.3); Platelet Count 207 X10*3/uL (160-400); Red Blood Count 4.24 X10*6/uL (4.20-5.50); Red Cell Distribution Width 14.7 % (11.0-16.0); White Blood Count 5.6 X10*3/uL (4.8-10.8)
[2023-07-13 14:59] LABS: Ferritin 68 ng/mL (10-250); Vitamin D 25-OH Total 22.4 ng/mL (>30)
[2023-07-13 15:33] LABS: Alanine Aminotransferase 36 U/L (0-31); Albumin Level 4.1 g/dL (3.5-5.0); Alkaline Phosphatase 56 U/L (39-117); Anion Gap 16 (12-20); Aspartate Amino Transferase 44 U/L (5-31); Bilirubin Total 0.7 mg/dL (0.0-1.0); Blood Urea Nitrogen 12 mg/dL (9-16); Calcium 9.8 mg/dL (8.4-10.2); Carbon Dioxide 28 mmol/L (22-29); Chloride 99 mmol/L (96-108); Estimated Glomerular Filt Rate 60; Glucose Random 439 mg/dL (60-115); Iron 272 mcg/dL (30-160); Percent Iron Saturation 67 % (15-50); Potassium 4.4 mmol/L (3.3-5.1); Sodium 139 mmol/L (135-145); Total Iron Binding Capacity 405 mcg/dL (228-428); Unsaturated Iron Binding 133 ug/dL
== END 2023-07-13 12:50 | disposition home or self-care (01) ==
LOC: HO.LAB 12:49
PROVIDERS: PCP Student in an Organized Health Care Education/Training Program; Visit Provider Student in an Organized Health Care Education/Training Program
DX: D64.9 Anemia, unspecified (principal)
CPT/HCPCS: 36415; 80053; 82306; 82728; 83540; 85027

== ENCOUNTER 2023-08-09 08:57 | Outpatient (AMB) | payer MEDICAID, SELFPAY ==
[2023-08-09 09:21] VITALS: BMI 32.0
--- NOTE | 2023-08-09 09:21 | A.OFFVIS_ITS ---
Vital Signs 08/09/23 09:21 Height 5 ft 2 in Weight 175 lb BMI 32.0 Intake Visit Reasons: OV-Left knee injection-last injection 05/10/23 Intake Note: Shireen is a 62 year old female who presents for a follow up of Left knee pain. Patient states that she had a Left knee injection on 05/10/2023 and it gave her good relief. Her pain has returned. She describes her pain as sharp in nature. She has tried Tylenol and anti-inflammatory medicines which gave her minimal relief. She would like to hold off on surgery for as long as possible. Allergies cornflower [Cornflower] Allergy (Unknown, Verified 08/09/23 09:30) ITCHY EYES/HIVES peach [PEACH] Allergy (Unknown, Verified 08/09/23 09:30) NATURAL FRUIT - MOUTH ITCHES cornell [cherries] Allergy (Verified 08/09/23 09:30) Unknown No Known Drug Allergies Allergy (Verified 08/09/23 09:30) none apples Allergy (Unknown, Uncoded 06/11/23 09:56) Unknown peanut Allergy (Unknown, Uncoded 06/11/23 09:56) Unknown Medication List - Last Reconciled 08/09/23 by Geo Tomlinson MD acamprosate 666 mg PO TID albuterol sulfate 90 mcg/actuation (ProAir HFA) 2 puffs PO Q6H PRN atorvastatin 40 mg PO BEDTIME blood pressure test kit-large As directed blood sugar diagnostic (FreeStyle Test strips) 4 times a day blood-glucose meter (FreeStyle [place] Lite kit) As directed budesonide-formoterol 160-4.5 mcg/actuation (Symbicort) 2 puffs PO calcium carbonate (Oyster Shell Calcium) 500 mg PO BID canagliflozin (Invokana) 300 mg PO QAM cetirizine 10 mg PO DAILY cholecalciferol (vitamin D3) (Vitamin D3) 50 mcg PO QAM cholecalciferol (vitamin D3) 125 mcg PO QAM fenofibrate micronized 134 mg PO DAILY ferrous sulfate (FeroSul) 325 mg PO 3XW flash glucose scanning reader ([employer] Lakeisha 2 [place]) As directed flash glucose sensor (FreeStyle Lakeisha 2 Sensor kit) every 14 days folic acid 1 mg PO QAM gabapentin 100 mg PO BEDTIME insulin regular hum U-500 conc (Humulin R U-500 (Conc) Insulin Kwikpen) 250 units before breakfast ; 30 days lancets (FreeStyle Lancets) As directed lancets (TRUEplus Lancets) As directed linaclotide (Linzess) 145 mcg PO DAILY 30 days losartan 25 mg PO QAM mirabegron ER (Myrbetriq) 25 mg PO QAM nebulizers As directed nystatin-triamcinolone 100,000-0.1 unit/g-% 1 appl topical DAILY Oxygen Home Use As directed pantoprazole 20 mg PO DAILY pantoprazole 40 mg PO DAILY 30 days pen needle, diabetic (BD Ultra-Fine Debbie Pen Needle) As directed once a day sertraline (Zoloft) 50 mg PO DAILY thiamine HCl (vitamin B1) 100 mg PO QAM trazodone 100 mg PO BEDTIME PRN PFSH Medical History Dyspnea Asthma-COPD overlap syndrome Alcohol use History of methadone use Personal history of nicotine dependence Asthma Obesity (BMI 30-39.9) GERD (gastroesophageal reflux disease) Cirrhosis Vitamin D deficiency Hypertension Dyslipidemia Non-toxic multinodular goiter Osteoporosis Diabetic 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 with type 2 diabetes mellitus [employer] (current) use of insulin Diabetes type 2, uncontrolled Surgical History Status post biopsy of thyroid gland History of colonoscopy (~2016) Hx of cataract extraction History of esophagogastroduodenoscopy (EGD) (~2020) Hx of cardiac cath (~12/2015) Hx of cholecystectomy (~1980) History of bladder surgery (~06/2019) Family History Father Esophageal cancer Mother Diabetes mellitus HTN (hypertension) Social History Household Members: Spouse Alcohol intake: current Alcohol intake frequency: 3 or more drinks per day Alcohol type: beer Patient Tobacco Use Status: Former Tobacco user Quit Date: 11/2012 Tobacco use type: Cigarette Years Smoked: Onset 27, 2ppd x 24yrs, 48pyh, quit 11/2012 Advance Directives Date on File: 11/18/15 Physical Exam Vital Signs: BMI result Body Mass Index 32.0 Const Other: Well-nourished well-developed very friendly female awake alert and oriented x3 in no acute distress Extrem Other: Bilateral lower extremity examination shows good capillary refill, no skin lesions noted, normal sensation light touch Left knee examination shows a minimal effusion, palpable crepitus with range of motion, pain with range of motion, range of motion from -3 degrees to 100 degrees, no instability Office Procedures Joint Injection/Drain Joint Injection/Drain Primary Site: left knee Prep: site was prepped using aseptic technique Injected: 40 mg of and 1% plain lidocaine Procedure: The patient tolerated the procedure well Coding - Large joint Procedure code (CPT) selection complete Assessment & Plan Assessment & Plan (1) Arthritis of left knee: Code(s): M17.12 - Unilateral primary osteoarthritis, left knee Category: Medical Plan Ms. Tavarez presents with left knee pain due to degenerative joint disease. I had a lengthy discussion with the patient regarding the treatment options. She wishes to hold off on surgery for as long as possible. I agree with this plan. The risks and benefits of a left knee cortisone injection were discussed at length with the patient. The patient wished to proceed with the injection. She tolerated the injection well. She will continue with her activity modifications. She will follow up with me on an as-needed basis should her symptoms not plateau at an unacceptable level over the next few months. Feel free to call me at any time should questions regarding her orthopedic management arise. I spent 20 minutes in reviewing the patient's records and imaging studies, seeing the patient and documenting in the medical record. Orders: Orders AMB Joint Injection/Aspiration Today M17.12 - Unilateral primary osteoarthritis, left knee Coding Level of Care Code Est Pt Level 3 (66870) Diagnoses Arthritis of left knee M17.12 CPT Codes Coding - Large joint: 34476 - Large joint ([id number])
== END 2023-08-09 10:00 | disposition home or self-care (01) ==
PROVIDERS: PCP Student in an Organized Health Care Education/Training Program; Visit Provider Orthopaedic Surgery
DX: M17.12 Unilateral primary osteoarthritis, left knee (principal)
CPT/HCPCS: 20610; 99213

== ENCOUNTER → 2023-08-09 08:57 | Outpatient (BNVA) | payer MEDICAID, SELFPAY | PROVIDERS: PCP Student in an Organized Health Care Education/Training Program; Visit Provider Orthopaedic Surgery | DX: M17.12 Unilateral primary osteoarthritis, left knee (principal) | CPT/HCPCS: 20610; 99212; J1010 ==

== ENCOUNTER 2023-08-23 12:39 | Outpatient (AMB) | payer MEDICAID, SELFPAY ==
[2023-08-23 12:51] VITALS: BP 128/60; PULSE 78; O2SAT 98; BMI 32.7
--- NOTE | 2023-08-23 12:51 | A.OFFVIS_ITS ---
Vital Signs 08/23/23 12:51 Height 5 ft 2 in Weight 178 lb 9.191 oz BMI 32.7 BP 128/60 Blood Pressure Location Lt brachial Position Sitting Pulse 78 Pulse Source Monitor Pulse Oximetry (%) 98 Oxygen Delivery Method Room Air Intake Visit Reasons: f/u per HS Allergies cornflower [Cornflower] Allergy (Unknown, Verified 08/09/23 09:30) ITCHY EYES/HIVES peach [PEACH] Allergy (Unknown, Verified 08/09/23 09:30) NATURAL FRUIT - MOUTH ITCHES cornell [cherries] Allergy (Verified 08/09/23 09:30) Unknown No Known Drug Allergies Allergy (Verified 08/09/23 09:30) none apples Allergy (Unknown, Uncoded 06/11/23 09:56) Unknown peanut Allergy (Unknown, Uncoded 06/11/23 09:56) Unknown Medication List - Last Reconciled 08/23/23 by Cynthia Cee, MARTHA acamprosate 666 mg PO TID albuterol sulfate 90 mcg/actuation (ProAir HFA) 2 puffs PO Q6H PRN atorvastatin 40 mg PO BEDTIME blood pressure test kit-large As directed blood sugar diagnostic (FreeStyle Test strips) 4 times a day blood-glucose meter (FreeStyle [place] Lite kit) As directed budesonide-formoterol 160-4.5 mcg/actuation (Symbicort) 2 puffs PO calcium carbonate (Oyster Shell Calcium) 500 mg PO BID canagliflozin (Invokana) 300 mg PO QAM cetirizine 10 mg PO DAILY cholecalciferol (vitamin D3) (Vitamin D3) 50 mcg PO QAM cholecalciferol (vitamin D3) 125 mcg PO QAM fenofibrate micronized 134 mg PO DAILY ferrous sulfate (FeroSul) 325 mg PO 3XW flash glucose scanning reader (FreeStyle Lakeisha 2 [place]) As directed flash glucose sensor (FreeStyle Lakeisha 2 Sensor kit) every 14 days folic acid 1 mg PO QAM gabapentin 100 mg PO BEDTIME insulin regular hum U-500 conc (Humulin R U-500 (Conc) Insulin Kwikpen) 250 units before breakfast ; 30 days lancets (FreeStyle Lancets) As directed lancets (TRUEplus Lancets) As directed linaclotide (Linzess) 145 mcg PO DAILY 30 days losartan 25 mg PO QAM mirabegron ER (Myrbetriq) 25 mg PO QAM nebulizers As directed nystatin-triamcinolone 100,000-0.1 unit/g-% 1 appl topical DAILY Oxygen Home Use As directed pantoprazole 20 mg PO DAILY pantoprazole 40 mg PO DAILY 30 days pen needle, diabetic (BD Ultra-Fine Debbie Pen Needle) As directed once a day sertraline (Zoloft) 50 mg PO DAILY thiamine HCl (vitamin B1) 100 mg PO QAM trazodone 100 mg PO BEDTIME PRN HPI Comments Details: 62-year-old female presents today for a follow-up. Patient reports she has been doing well. She is still getting the stabbing pain on and off at rest. She has a history of cardiomyopathy, asthma-COPD overload, CHERISE, HTN, type two diabetes, and dyslipidemia.She no longer smokes but is still a daily drinker. [facility] Medical History CAD (coronary artery disease) Dyspnea Asthma-COPD overlap syndrome Alcohol use History of methadone use Personal history of nicotine dependence Asthma Obesity (BMI 30-39.9) GERD (gastroesophageal reflux disease) Cirrhosis Vitamin D deficiency Hypertension Dyslipidemia Non-toxic multinodular goiter Osteoporosis Diabetic 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 with type 2 diabetes mellitus [facility] (current) use of insulin Diabetes type 2, uncontrolled Surgical History Status post biopsy of thyroid gland History of colonoscopy (~2016) Hx of cataract extraction History of esophagogastroduodenoscopy (EGD) (~2020) Hx of cardiac cath (~12/2015) Hx of cholecystectomy (~1980) History of bladder surgery (~06/2019) Family History Father Esophageal cancer Mother Diabetes mellitus HTN (hypertension) Social History Household Members: Spouse Alcohol intake: current Alcohol intake frequency: 3 or more drinks per day Alcohol type: beer Patient Tobacco Use Status: Former Tobacco user Quit Date: 11/2012 Tobacco use type: Cigarette Years Smoked: Onset 27, 2ppd x 24yrs, 48pyh, quit 11/2012 Advance Directives Date on File: 11/18/15 Review of Systems Const Denies chills, Denies fatigue, Denies fever(s), Denies frequent falls, Denies weakness, Denies weight gain and Denies weight loss ENT Denies dizziness Card Denies chest pain, Denies chest pain with activity, Denies syncope, Denies rapid heart rate, Denies pedal edema, Denies irregular heart rhythm, Denies leg edema, Denies lightheadedness, Denies palpitations, Denies dyspnea, Denies dyspnea on exertion, Denies orthopnea and Denies other (LOC) Resp Denies cough, Denies dyspnea and Denies dyspnea on exertion GI Denies hematochezia and Denies change in bowel habits Musc Denies abnormal gait, Denies arthralgias, Denies muscle weakness, Denies numbnes s, Denies radiating pain into limb and Denies tingling Neuro Denies abnormal gait, Denies dizziness, Denies syncope, Denies frequent falls, Denies numbness, Denies tingling and Denies weakness Endo Denies fatigue and Denies palpitations Physical Exam Vital Signs: Last Vital Signs Pulse 78 08/23/23 12:51 BP 128/60 08/23/23 12:51 Pulse Ox 98 08/23/23 12:51 Oxygen Delivery Method Room Air 08/23/23 12:51 BMI result Body Mass Index 32.7 Const General: healthy appearing and no acute distress Orientation/consciousness: patient oriented x3 HEENT Head: Yes normal to inspection Eyes General: appearance normal, both eyes and all related structures Neck Neck: Yes normal visual inspection Chest Chest palpation & inspection: normal inspection of the chest Resp Effort & Inspection: normal respiratory effort Auscultation: clear to auscultation bilaterally Cardio Jugular venous distension: no JVD Palpation: normal PMI Rate: regular rate Rhythm: regular rhythm Heart sounds: S1 normal heart sound present, S2 normal heart sound present, no click, no gallops, no murmurs and no rubs GI Inspection: Yes normal to inspection Palpation (GI): Soft to palpation Skin General skin exam: no rashes or lesions noted Neuro General: patient oriented x3 Extrem General: Yes normal to inspection Psych Appearance: grossly normal Results Reviewed Results Reviewed: Coronary CT IMPRESSION: 1. Probably mild stenosis (25-49%) in the mid LAD due to a short segment of calcified plaque, however evaluation is limited by blooming artifact from calcification. 2. Minimal stenosis (1-24%) due to calcified and mixed plaques in the proximal left main, proximal LAD, proximal LCx, and proximal RCA. 3. Mild, scattered, mixed atherosclerotic plaque throughout the descending thoracic aorta. 4. Noncardiac findings will be separately interpreted and reported by Radiology as an addendum to this report. Assessment & Plan Assessment & Plan (1) CAD (coronary artery disease): Code(s): I25.10 - Atherosclerotic heart disease of [place] coronary artery without angina pectoris Category: Medical (2) Dyslipidemia: Code(s): E78.5 - Hyperlipidemia, unspecified Category: Medical (3) Diabetes type 2, uncontrolled: Code(s): E11.65 - Type 2 diabetes mellitus with hyperglycemia Category: Medical Plan Mild CAD. Patient is on atorvastatin 40mg. Will recheck lipid panel. Last LDL 10/2022 was 66. A1C the same day was 7.9. Discussed about lifestyle changes of alcohol reduction, diabetes control, heart healthy diet, and increasing activity levels. Patient and report understanding and agree to plan. Orders: Orders Lipid Panel 08/23/23 E78.5 - Hyperlipidemia, unspecified, I25.10 - Atherosclerotic heart disease of [place] coronary artery without angina pectoris Basic Metabolic Panel 08/23/23 E78.5 - Hyperlipidemia, unspecified, I25.10 - Atherosclerotic heart disease of [place] coronary artery without angina pectoris Coding Level of Care Code Est Pt Level 3 (68343) Diagnoses CAD (coronary artery disease) I25.10 Dyslipidemia E78.5 Diabetes type 2, uncontrolled E11.65
== END 2023-08-23 13:17 | disposition home or self-care (01) ==
PROVIDERS: PCP Student in an Organized Health Care Education/Training Program; Visit Provider Nurse Practitioner
DX: I25.10 Atherosclerotic heart disease of native coronary artery without angina pectoris (principal); E78.5 Hyperlipidemia, unspecified; E11.65 Type 2 diabetes mellitus with hyperglycemia
CPT/HCPCS: 99213

== ENCOUNTER → 2023-08-23 12:39 | Outpatient (BNVA) | payer MEDICAID, SELFPAY | PROVIDERS: PCP Student in an Organized Health Care Education/Training Program; Visit Provider Nurse Practitioner | DX: I25.10 Atherosclerotic heart disease of native coronary artery without angina pectoris (principal); E78.5 Hyperlipidemia, unspecified; E11.65 Type 2 diabetes mellitus with hyperglycemia | CPT/HCPCS: 99212 ==

== ENCOUNTER 2023-08-24 08:55 | Outpatient (REF) | payer MEDICAID, SELFPAY ==
[2023-08-24 09:59] LABS: Anion Gap 14 (12-20); Blood Urea Nitrogen 15 mg/dL (9-16); Calcium 9.6 mg/dL (8.4-10.2); Carbon Dioxide 30 mmol/L (22-29); Chloride 102 mmol/L (96-108); Cholesterol 133 mg/dL (<200); Estimated Glomerular Filt Rate 58; Glucose Random 286 mg/dL (60-115); HDL Cholesterol 43 mg/dL (>40); LDL Cholesterol Calculated 58 mg/dL (<100); Potassium 4.5 mmol/L (3.3-5.1); Sodium 141 mmol/L (135-145); Triglycerides 160 mg/dL (<150)
== END 2023-08-24 08:56 | disposition home or self-care (01) ==
LOC: HO.LAB 08:55
PROVIDERS: Absent Provider Internal Medicine; PCP Student in an Organized Health Care Education/Training Program; Visit Provider Nurse Practitioner
DX: E78.5 Hyperlipidemia, unspecified (principal); I25.10 Atherosclerotic heart disease of native coronary artery without angina pectoris
CPT/HCPCS: 36415; 80048; 80061

== ENCOUNTER 2023-10-04 09:46 | Outpatient (AMB) | payer MEDICAID, SELFPAY ==
--- NOTE | 2023-10-04 10:02 | A.OFFVIS_ITS ---
Vital Signs 10/04/23 10:05 Height 5 ft 2 in Weight 172 lb BMI 31.5 BP 109/46 L Blood Pressure Location Lt brachial Position Sitting Pulse 69 Intake Visit Reasons: 4 month follow up Intake Note: Patient follow up for chronic constipation. Patient cc: abdominal pain on ad off, nauseas, between diarrhea/constipation on and off and swallowing problems. 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 Accompanied by: Self / Same As Patient Allergies cornflower [Cornflower] Allergy (Unknown, Verified 08/09/23 09:30) ITCHY EYES/HIVES peach [PEACH] Allergy (Unknown, Verified 08/09/23 09:30) NATURAL FRUIT - MOUTH ITCHES cornell [cherries] Allergy (Verified 08/09/23 09:30) Unknown No Known Drug Allergies Allergy (Verified 08/09/23 09:30) none apples Allergy (Unknown, Uncoded 06/11/23 09:56) Unknown peanut Allergy (Unknown, Uncoded 06/11/23 09:56) Unknown Medication List - Last Reconciled 10/04/23 by Julissa Newberry MD acamprosate 666 mg PO TID albuterol sulfate 90 mcg/actuation (ProAir HFA) 2 puffs PO Q6H PRN atorvastatin 40 mg PO BEDTIME blood pressure test kit-large As directed blood sugar diagnostic (FreeStyle Test strips) 4 times a day blood-glucose meter (FreeStyle Calais Lite kit) As directed budesonide-formoterol 160-4.5 mcg/actuation (Symbicort) 2 puffs PO calcium carbonate (Oyster Shell Calcium) 500 mg PO BID canagliflozin (Invokana) 300 mg PO QAM cetirizine 10 mg PO DAILY cholecalciferol (vitamin D3) (Vitamin D3) 50 mcg PO QAM cholecalciferol (vitamin D3) 125 mcg PO QAM fenofibrate micronized 134 mg PO DAILY ferrous sulfate (FeroSul) 325 mg PO 3XW flash glucose scanning reader (KCAP ServicesStyle Lakeisha 2 [place]) As directed flash glucose sensor (FreeStyle Lakeisha 2 Sensor kit) every 14 days folic acid 1 mg PO QAM gabapentin 100 mg PO BEDTIME insulin regular hum U-500 conc (Humulin R U-500 (Conc) Insulin Kwikpen) 250 units before breakfast ; 30 days lancets (FreeStyle Lancets) As directed lancets (TRUEplus Lancets) As directed linaclotide (Linzess) 145 mcg PO DAILY 30 days losartan 25 mg PO QAM mirabegron ER (Myrbetriq) 25 mg PO QAM nebulizers As directed nystatin-triamcinolone 100,000-0.1 unit/g-% 1 appl topical DAILY Oxygen Home Use As directed pantoprazole 20 mg PO DAILY pantoprazole 40 mg PO DAILY 30 days pen needle, diabetic (BD Ultra-Fine Debbie Pen Needle) As directed once a day sertraline (Zoloft) 50 mg PO DAILY thiamine HCl (vitamin B1) 100 mg PO QAM trazodone 100 mg PO BEDTIME PRN HPI HPI 4 month follow up: Details: GI CLINIC VISIT FOR THIS 62-YEAR-OLD MALAY-SPEAKING FEMALE FOR FOLLOW-UP OF CIRRHOSIS AND GERD. LABS IN [facility]:?12/11/19 LFTS SHOWED AST OF 98, ALT OF 54, ALBUMIN 4.3 05/29 NORMAL CBC WITH PLATELET COUNT OF 218, INR 1, NORMAL BILIRUBIN WITH AST OF 43, ALT 72, ALKALINE PHOSPHATASE 74 ? 09/2017 HEPATITIS-B ANTIBODY WAS POSITIVE, NO OTHER HEPATITIS SEROLOGIES AVAILABLE IN [facility]. IMAGING STUDIES: 03/26/[address] SCAN SHOWED: Cirrhosis without evidence of hepatocellular carcinoma. Portal hypertension, patent portal vein, mild splenomegaly. No ascites. 09/2021 BARIUM SWALLOW - normal 02/16/21 ABD US SHOWED: 1. No sonographic evidence of focal liver lesion. 2. Multiple presumed hemangioma within the spleen, the largest measures 1.4 cm, appears stable since 12/18/2018. 04/2020 abdominal ultrasound with elastography showed:Hepatic steatosis without focal lesion. There is hepatopedal flow seen in the portal vein.Visualized pancreas, gallbladder and the right kidney is unremarkable. On Elastography there is mild to moderate fibrosis stage F2 - F3? ENDOSCOPIC STUDIES: 02/25/21 EGD SHOWED: ESOPHAGUS: A 3-4 mm benign appearing nodule in the mid esophagus at 30 cms - biopsied. GE junction at 38 cms.? Tortuous esophagus with increased tertiary contractions without stricture or ring - empiric balloon dilation was performed with a 19 mm CRE balloon x 60 sec.? Biopsies were obtained from proximal esophagus to check for EOE No esophagitis or Bui's. STOMACH: Moderate non-erosive portal gastropathy involving the gastric body and fundus. Mild gastric erythema. Biopsies were obtained.? Gastric polyp. DUODENUM: Normal - biopsies were negative for celiac sprue. B. Gastric antrum, biopsy: -Mild reactive gastropathy with ectatic mucosal vessels and focal minimal chronic inflammation; negative for H. pylori. -No active inflammation.C. Gastric polyp, biopsy: -Fundic gland polyp; negative for H. pylori. -No active inflammation.D. Esophagus, mid, nodule, biopsy: -Benign squamous mucosa with focal intraepithelial neutrophils and eosinophils, consistent with acute esophagitis; negative for fungi.? -No columnar mucosa present.E. Esophagus, proximal, biopsy: -Squamous mucosa with no specific change.? -No evidence of eosinophilic esophagitis. ? 05/2011 EGD showed hemorrhagic gastritis and no esophageal varices were seen ? 04/2016 colonoscopy was performed by Dr. Hutchinson and showed rectosigmoid region appeared thickened with a few patchy areas of flat hyperplastic appearing tissue. ? Biopsies showed hyperplastic colonic mucosa. ?TODAY'S VISIT Accompanied by her daughter in law, Machelle who helped interpret for the patient prior to arrival of [facility] medical interpreter Patient cc: abdominal pain on ad off, nauseas, between diarrhea/constipation on and off and swallowing problems. Notes mild abdominal pain sometimes - always in the morning When she wakes up she has nausea and abdominal pain sometimes Pain can last for an hour - gets better after she drinks coffee Constipation is better with medications - can have a BM 3 times a day and sometimes skip a day Can sometimes note abdominal bloating and distension ?PAST VISIT: Pt denies any change in her symptoms Complains of chronic upper abdominal pain and abdominal bloating Belly swells up and she feels full after eating Chronic constipation and sometimes she can go 5 days without a BM Pt is taking a medication for constipation and does not know the name (advised to check the medication and call back with the name when she gets home today) EGD and bx results reviewed with the patient Notes partial improvement in swallowing after EGD with balloon dilation Complains of dysphagia to solids - food gets stuck in the lower chest. Dysphagia with all meals. Swallowing is painful. Drinking 3 beers a day. ?? ? Doing so so - notes abdominal bloating, gas and diarrhea Requests an EGD. Denies heartburn since she is taking medications - Pepcid 10 mg twice a day. ? (Omeprazole was stopped due to concern for side effects of diarrhea). ? Pt admits to drinking 2 beers a day and trying to cut back. ? Rib pain has improved only hurts occasionally. ? She does not take medications as prescribed. 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 Diabetes type 2, uncontrolled Surgical History Status post biopsy of thyroid gland History of colonoscopy (~2016) Hx of cataract extraction History of esophagogastroduodenoscopy (EGD) (~2020) Hx of cardiac cath (~12/2015) Hx of cholecystectomy (~1980) History of bladder surgery (~06/2019) Family History Father Esophageal cancer Mother Diabetes mellitus HTN (hypertension) Social History Household Members: Spouse Alcohol intake: current Alcohol intake frequency: 3 or more drinks per day Alcohol type: beer Patient Tobacco Use Status: Former Tobacco user Tobacco use type: Cigarette Years Smoked: Onset 27, 2ppd x 24yrs, 48pyh, quit 11/2012 Advance Directives Date on File: 11/18/15 Review of Systems Const All systems reviewed & are unremarkable except as noted in HPI and below Physical Exam Vital Signs: Last Vital Signs Pulse 69 10/04/23 10:05 BP 109/46 L 10/04/23 10:05 BMI result Body Mass Index 31.5 Const General: healthy appearing and no acute distress Nutritional Appearance: obese Orientation/consciousness: patient oriented x3 Limitations: language barrier HEENT Head: Yes normal to inspection Ears: hearing grossly normal bilaterally Eyes Sclerae: sclerae normal Pupils: Equal, round and reactive pupils present Neck Neck: Yes normal visual inspection Chest Chest palpation & inspection: normal inspection of the chest Resp Effort & Inspection: normal respiratory effort Auscultation: clear to auscultation bilaterally Cardio Palpation: normal PMI Rate: regular rate Rhythm: regular rhythm Heart sounds: S1 normal heart sound present, S2 normal heart sound present and no murmurs GI Palpation (GI): Soft to palpation, nontender and Hepatomegaly present (left lobe of liver palpable in epigastric area,slightly tender) Auscultation: normal bowel sounds Rectal Exam - Female: deferred Skin General skin exam: no rashes or lesions noted Neuro General: patient oriented x3, gait normal and moves all extremities Cranial nerves: Yes Equal, round and reactive pupils present Extrem General: Yes pedal edema Psych Appearance: grossly normal Mental Status: mental status grossly normal Assessment & Plan Assessment & Plan (1) Cirrhosis: Comment: (Alcohol-related liver cirrhosis) Code(s): K74.60 - Unspecified cirrhosis of liver Category: Medical (2) GERD (gastroesophageal reflux disease): Code(s): K21.9 - Gastro-esophageal reflux disease without esophagitis Category: Medical (3) Dysphagia, pharyngoesophageal phase: Code(s): R13.14 - Dysphagia, pharyngoesophageal phase Category: Medical (4) Colon cancer screening: Comment: 2016 Colonoscopy was performed by Dr Hutchinson and showed thickened mucosa at 2 cms in the rectum - hyperplastic on bx Repeat colon advised in 10 yrs (would recommend to discontinue colon cancer screening given multiple comorbidities) Code(s): Z12.11 - Encounter for screening for malignant neoplasm of colon Category: Medical (5) Chronic upper abdominal pain: Code(s): R10.10 - Upper abdominal pain, unspecified; G89.29 - Other chronic pain Category: Medical (6) Chronic constipation: Code(s): K59.09 - Other constipation Category: Medical Plan 62 YF followed in GI for GERD and alcohol-related liver disease - unclear if patient has nina cirrhosis since she has a normal platelet count, INR and albumin level. She is trying to cut back on her alcohol intake. Pt was reminded to have labs checked (ordered during her last TV appt).? Abd US with with elastography showed hepatic steatosis and mild to moderate fibrosis stage F2 - F3?. Patient was advised to schedule a barium swallow for evaluation of dysphagia 02/15/23 Complains of chronic upper abdominal pain and abdominal bloating Belly swells up and she feels full after eating Pt advised to schedule an Abd CT scan with contrast for evaluation of abd pain and for HCC surveillance 05/24/23 She was prescribed Linzess 145 mcg daily for constipation 10/04/23 Notes mild abdominal pain sometimes - always in the morning When she wakes up she has nausea and abdominal pain sometimes Pain can last for an hour - gets better after she drinks coffee Constipation is better with medications - can have a BM 3 times a day and sometimes skip a day Can sometimes note abdominal bloating and distension Pt advised to schedule an abd US for FU of MASH/early cirrhosis (MELDNa score of 6) FU in 6 months - FU of cirrhosis and chronic constipation Orders: Orders US abdomen limited Today K74.60 - Unspecified cirrhosis of liver Coding Level of Care Code Est Pt Level 3 (62049) Diagnoses Cirrhosis K74.60 GERD (gastroesophageal reflux disease) K21.9 Dysphagia, pharyngoesophageal phase R13.14 Colon cancer screening Z12.11 Chronic upper abdominal pain R10.10; G89.29 Chronic constipation K59.09 Time Spent (min) 21
[2023-10-04 10:05] VITALS: BP 109/46; PULSE 69; BMI 31.5
== END 2023-10-04 10:51 | disposition home or self-care (01) ==
PROVIDERS: PCP Student in an Organized Health Care Education/Training Program; Visit Provider Internal Medicine Gastroenterology
DX: K74.60 Unspecified cirrhosis of liver (principal); K21.9 Gastro-esophageal reflux disease without esophagitis; R13.14 Dysphagia, pharyngoesophageal phase; Z12.11 Encounter for screening for malignant neoplasm of colon; R10.10 Upper abdominal pain, unspecified; G89.29 Other chronic pain; K59.09 Other constipation
CPT/HCPCS: 99213

== ENCOUNTER → 2023-10-04 09:46 | Outpatient (BNVA) | payer MEDICAID, SELFPAY | PROVIDERS: PCP Student in an Organized Health Care Education/Training Program; Visit Provider Internal Medicine Gastroenterology | DX: Z12.11 Encounter for screening for malignant neoplasm of colon (principal); K74.60 Unspecified cirrhosis of liver; K21.9 Gastro-esophageal reflux disease without esophagitis; K59.09 Other constipation; R13.14 Dysphagia, pharyngoesophageal phase; R10.10 Upper abdominal pain, unspecified; G89.29 Other chronic pain | CPT/HCPCS: 99212 ==

== ENCOUNTER 2023-10-10 09:18 | Outpatient (REF) | payer MEDICAID, SELFPAY ==
--- NOTE | ~2023-10-10 | US_ITS ---
EXAMINATION: US ABDOMEN LIMITED CLINICAL INFORMATION: Unspecified cirrhosis of liver. Screening for HCC and ascites. COMPARISON: CT abdomen 03/26/2023. Ultrasound abdomen complete 11/15/2022 and 02/16/2021. X-ray abdomen 05/30/2018. MRA abdomen 11/26/2017. TECHNIQUE: Real-time imaging of the right upper quadrant abdominal viscera. Limited visualization due to bowel. FINDINGS: PANCREAS: Limited visualization of pancreatic tail and head. Imaged portion of pancreatic body is unremarkable. LIVER: Coarse and heterogeneous hepatic echotexture, increased in echogenicity, characteristic of hepatocellular disease with substantially limited visualization. Hepatomegaly, right hepatic lobe measures 17.9 cm and left hepatic lobe measures 17.0 cm. GALLBLADDER: Surgically absent. COMMON BILE DUCT: Normal in caliber measuring 0.6 cm in diameter. RIGHT KIDNEY: No hydronephrosis. No renal calculi. Limited visualization. The kidney measures 12.0 cm in maximum dimension. FREE FLUID: None. US/US abdomen limited IMPRESSION: 1. Coarse and heterogeneous hepatic echotexture, increased in echogenicity, characteristic of hepatocellular disease with substantially limited visualization. Hepatomegaly, right hepatic lobe measures 17.9 cm and left hepatic lobe measures 17.0 cm. 2. Gallbladder surgically absent.
== END 2023-10-10 09:19 | disposition home or self-care (01) ==
LOC: HO.US 09:18
PROVIDERS: PCP Family Medicine; Visit Provider Internal Medicine Gastroenterology
DX: K74.60 Unspecified cirrhosis of liver (principal)
CPT/HCPCS: 76705

== ENCOUNTER 2023-11-15 09:17 | Outpatient (AMB) | payer MEDICAID, SELFPAY ==
--- NOTE | 2023-11-15 09:23 | MHC.OFFVIS ---
Vital Signs 11/15/23 09:35 Height 5 ft 2 in Weight 172 lb BMI 31.5 Intake Visit Reasons: OV-Left knee injection-last injection 08/09/23 Intake Note: Angelika 62 year old female who presents today for a follow up of left knee, last injection on 08/09/23. Patient reports last injection provided her with relief until recently, states her pain returned last week. She is requesting to repeat injection. Allergies cornflower [Cornflower] Allergy (Unknown, Verified 11/15/23 09:35) ITCHY EYES/HIVES peach [PEACH] Allergy (Unknown, Verified 11/15/23 09:35) NATURAL FRUIT - MOUTH ITCHES cornell [cherries] Allergy (Verified 11/15/23 09:35) Unknown No Known Drug Allergies Allergy (Verified 11/15/23 09:35) none apples Allergy (Unknown, Uncoded 11/15/23 09:35) Unknown peanut Allergy (Unknown, Uncoded 11/15/23 09:35) Unknown HPI HPI OV-Left knee injection-last injection 08/09/23: Details: 62-year-old female who returns to the office today for a follow-up of left knee pain. She had her last injection on 08/09/23 that provided her relief until about a week ago. She would like to repeat the injection. She has a history of diabetes. Her sugar level is well controlled. 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 Diabetes type 2, uncontrolled Surgical History Status post biopsy of thyroid gland History of colonoscopy (~2016) Hx of cataract extraction History of esophagogastroduodenoscopy (EGD) (~2020) Hx of cardiac cath (~12/2015) Hx of cholecystectomy (~1980) History of bladder surgery (~06/2019) Family History Father Esophageal cancer Mother Diabetes mellitus HTN (hypertension) Social History Household Members: Spouse Alcohol intake: current Alcohol intake frequency: 3 or more drinks per day Alcohol type: beer Patient Tobacco Use Status: Former Tobacco user Tobacco use type: Cigarette Years Smoked: Onset 27, 2ppd x 24yrs, 48pyh, quit 11/2012 Advance Directives Date on File: 11/18/15 Review of Systems Const All systems reviewed & are unremarkable except as noted in HPI and below Physical Exam Vital Signs: BMI result Body Mass Index 31.5 Extrem Other: Left knee: Skin intact, no erythema or joint effusion. Tenderness along the medial joint line. Full ROM with crepitus. Negative Elder?s. No ligamentous laxity. NVI. ? Office Procedures Joint Injection/Aspiration Joint Injection/Aspiration Primary Site: left knee Prep: site was prepped using aseptic technique, ethochloride spray was applied and injection warnings given Injected: 40 mg of, Kenalog, with 8 mL of, 1% plain lidocaine and in the joint Approach Used: anterolateral Procedure: The patient tolerated the procedure well and there was some relief with the local anesthesia Coding 78817 - Glenohumeral/Tronchanteric Bursa/Intraarticular Procedure code (CPT) selection complete Assessment & Plan Assessment & Plan (1) Arthritis of left knee: Code(s): M17.12 - Unilateral primary osteoarthritis, left knee Category: Medical Plan We discussed options today, which include steroid injection. The patient did consent to move forward with the left knee injection, which was tolerated well. I recommended rest, ice, and elevation and OTC anti-inflammatories as needed for discomfort. We also discussed diabetes and the effect the steroid injection can have on their blood glucose levels; therefore, they will continue to monitor these very closely over the next 72 hours. If there are concerns, they should report to the ED immediately. Patient Instructions: Scribed for Satish Santillan PA-C, by Richie Patel medical support assistant, on 11/15/2023 at 9:30 AM EST.? I, Satish Santillan PA-C, have personally reviewed and agree with the information entered by the scribe. Coding Level of Care Code Est Pt Level 3 (79882) Diagnoses Arthritis of left knee M17.12 CPT Codes Coding - Joint 7: 19495 - Glenohumeral/Tronchanteric Bursa/Intraarticular ([id number])
[2023-11-15 09:35] VITALS: BMI 31.5
== END 2023-11-15 09:39 | disposition home or self-care (01) ==
PROVIDERS: PCP Student in an Organized Health Care Education/Training Program; Visit Provider Physician Assistant
DX: M17.12 Unilateral primary osteoarthritis, left knee (principal)
CPT/HCPCS: 20610; 99213

== ENCOUNTER → 2023-11-15 09:17 | Outpatient (BNVA) | payer MEDICAID, SELFPAY | PROVIDERS: PCP Student in an Organized Health Care Education/Training Program; Visit Provider Physician Assistant | DX: M17.12 Unilateral primary osteoarthritis, left knee (principal) | CPT/HCPCS: 20610; 99212; J3301 ==

== ENCOUNTER → 2024-01-11 08:51 | Outpatient (REF) | payer OTHER, SELFPAY ==
--- NOTE | 2024-01-11 08:55 | CA_ITS ---
Transthoracic Echocardiogram Patient (Last, First, Middle): Shireen Tavarez, Gender: Female Date of : 1960 Age: 63 Procedure Date: 01/11/2024 Procedure Type: Transthoracic Echocardiogram Location: OP Height: 157.48 cm Weight: 79.83 kg BSA: 1.81 m2 Heart Rate: 77 bpm BP: 124 / 70 mmHg Day Guard: SB Referring MD: Billy Malcolm MD Symptoms: I42.9 - Cardiomyopathy, unspecified Study Quality: Adequate w contrast ECG Rhythm: Sinus Conclusions: - Normal left ventricular size, thickness, systolic function, and wall motion. The visually estimated ejection fraction is between 55-60%. - Elevated filling pressures. - Normal right ventricular cavity size and systolic function. Findings Procedure Information Contrast agent, definity, is being given per protocol without apparent complications. Left Ventricle Normal left ventricular size, thickness, systolic function, and wall motion. The visually estimated ejection fraction is between 55-60%. Abnormal diastolic function is noted. Spectral Doppler is indicative of a pseudonormal filling pattern. Elevated filling pressures. Right Ventricle Normal right ventricular cavity size and systolic function. Atria The left atrium is normal in size. The right atrium is normal in size. Aortic Valve The aortic valve was not well visualized. There is no aortic valve stenosis. There is no aortic valve regurgitation. Mitral Valve The mitral valve appears normal. There is no mitral valve regurgitation. There is no mitral valve stenosis. Pulmonic Valve The pulmonic valve is likely normal. Tricuspid Valve Normal tricuspid valve structure. There is no tricuspid valve regurgitation. Tricuspid regurgitation envelope is inadequate for calculation of right ventricular systolic pressure. Normal right atrial pressure. Great Vessels All visible segments of the aorta are normal in size. The visualized portions of the pulmonary artery and branches are normal. Venous The inferior vena cava is dilated and collapses greater than 50% with inspiration. Pericardium/Pleural There is no evidence of pericardial effusion. Prior Study Comparison Changes noted compared to prior study dated: 02/16/2023. EF 55 to 60, elevated filling pressures. Measurements 2D Linear Measurements IVSd: 0.78 0.6-0.9/0.6-1.0 cm LVIDd: 5.60 3.9-5.3/4.2-5.9 cm LVIDd Index: 3.09 2.4-3.2/2.2-3.1 cm/m2 LVIDs: 4.25 2.0-3.6 cm LVPWd: 0.75 0.7-1.1 cm LA Diam: 3.20 2.7-3.8/3.0-4.0 cm LAIDs Index: 1.77 1.5-2.3 cm/m2 LV Mass: 194.17 67-162/88-224 g LV Mass Index: 107.27 43-95/49-115 g/m2 LVOT Diam: 2.10 3.0+(-)1.3 cm 2D Systolic Function EF 4C: 54.30 >55% EF 2C: 64.90 >55% EF BiP: 60.60 >55% Mitral Valve MV Pk E: 0.87 MV PK A: 0.90 MV Decel Time: 211.00 E/A: 1.00 E'Lateral: 4.79 E'Medial: 3.81 E/E' Med: 22.80 E/E' Lat: 18.20 PHT: 62.00 MVA PHT: 3.55 Decel Crenshaw: 4.12 Aortic Valve AoV Pk Sandoval: 1.35 AoV Pk Grad: 7.00 GAMAL: 2.43 LVOT LVOT Pk Sandoval: 0.92 LVOT Mn Sandoval: 0.67 LVOT VTI: 0.21 LVOT Pk Grad: 3.00 LVOT Mn Grad: 2.00 LVOT Diam: 2.10 LVOT Area: 3.46 Diastolic Function MV Pk E: 0.87 MV Pk A: 0.90 E/A: 1.00 E'Medial: 3.81 E/E' Med: 22.80 E' Laterial: 4.79 E/E' Lat: 18.20 Right Ventricle TAPSE (mm): 17.50 TVS' Sandoval: 12.80 Tricuspid Valve RA Press: 8.00 Great Vessels Aorta Sinus of Valsalva: 2.60 2.0-3.5 cm Ao Asc: 3.20 2.1-3.4 cm Pulmonary Veins Pulm Vein S/D 1.30 Pulmonary Valve PV Pk Sandoval: 0.96 Peak PV Grad: 4.00 Updated in Other Vendor System with Status of Final Chip Juarez MD electronically signed on 01/14/2024 8:48:46 AM with status of Final
== END ==
LOC: HO.CARD 08:51
PROVIDERS: PCP Student in an Organized Health Care Education/Training Program; Visit Provider Internal Medicine
DX: I42.9 Cardiomyopathy, unspecified (principal)
CPT/HCPCS: 93306; Q9957

== ENCOUNTER → 2024-01-11 08:55 | Outpatient (BNV) | payer OTHER, SELFPAY | PROVIDERS: PCP Student in an Organized Health Care Education/Training Program; Visit Provider Internal Medicine Cardiovascular Disease | DX: I51.89 Other ill-defined heart diseases (principal); R93.1 Abnormal findings on diagnostic imaging of heart and coronary circulation | CPT/HCPCS: 93306 ==

== ENCOUNTER 2024-01-14 09:23 | Outpatient (REF) | payer OTHER, SELFPAY ==
--- NOTE | ~2024-01-14 | CT_ITS ---
EXAMINATION: CT LOW-DOSE SCREENING CHEST WITHOUT CONTRAST CLINICAL INFORMATION: Personal history of nicotine dependence. The patient has a 48 pack-year history of smoking, having quit 11 years ago. COMPARISON: Multiple prior CT scans of the chest, the most recent of which is dated 12/06/2022 and the most remote of which is dated 10/22/2006. TECHNIQUE: Multidetector volumetric CT imaging of the chest is performed on a Siemens SOMATOM Definition scanner without contrast using low dose technique. Additional 2D coronal and sagittal reformatted images and axial 3D maximum intensity projection (MIP) images are generated on the CT workstation. This CT examination was performed using dose optimization techniques as appropriate, variously including the following: *Automated exposure control *Adjustment of mA and/or kV according to patient size (this includes techniques or standardized protocols for targeted exams where dose is matched to indication/reason for exam; i.e. extremities or head) *Use of iterative reconstruction technique TOTAL EXAM DLP: 52 mGy-cm. CTDIvol: 1.78 mGy. FINDINGS: PULMONARY NODULES: Previously seen 5 mm left lower lobe lung nodule measures 4 mm (5:265 compare prior 5:242). There is a new 2.6 mm right upper lobe subpleural nodule (5:208). No suspicious lung mass is seen. LUNGS: Lungs bilaterally symmetrically expanded. There is moderate bibasilar atelectasis along with some atelectasis in the lingula and right middle lobe. There is minimal emphysematous change. Some mild bronchial thickening is seen without bronchiectasis. No effusion or pneumothorax. Central airways patent. MEDIASTINUM: No mediastinal, hilar or axillary adenopathy or free fluid collection. CORONARY ARTERY CALCIFICATION: Moderate. THYROID GLAND: Calcified left thyroid nodule is unchanged. CARDIOVASCULAR STRUCTURES: Aortic and heart size normal. No pericardial effusion. CHEST WALL/AXILLA: Unremarkable. UPPER ABDOMEN: The liver is enlarged with a prominent left lobe. A punctate calcified liver granuloma is present. Attenuation is decreased consistent with hepatic steatosis. Status post cholecystectomy. OSSEOUS STRUCTURES: Mild scoliosis convex to the right. No bony destructive lesions are seen. CT/CT lung screening IMPRESSION: No findings seen suspicious for malignancy. One small nodule has decreased in size and there is 1 new 2.6 mm right upper lobe subpleural nodule ASSESSMENT: 1. Lung-RADS Category 2: Benign appearance or behavior of nodules. N/A 2. Lung-RADS Category S: Negative. There are no clinically significant or potentially clinically significant findings not related to the lungs requiring urgent additional evaluation. RECOMMENDATION: Continued routine annual low-dose CT lung screening in 1 year is recommended. An order for CT CHEST LOW DOSE CANCER SCREENING ([id number]) can be placed. Electronically signed by: Dilip Garcia MD 02/27/2024 01:56 PM [facility]
== END 2024-01-14 09:24 | disposition home or self-care (01) ==
LOC: HO.CT 09:23
PROVIDERS: PCP Student in an Organized Health Care Education/Training Program; Visit Provider Physician Assistant Medical
DX: Z12.2 Encounter for screening for malignant neoplasm of respiratory organs (principal); Z87.891 Personal history of nicotine dependence
CPT/HCPCS: 71271

== ENCOUNTER 2024-01-31 09:49 | Outpatient (AMB) | payer OTHER, SELFPAY ==
[2024-01-31 09:51] VITALS: BP 114/50; PULSE 71; BMI 32.5
--- NOTE | 2024-01-31 09:51 | A.OFFVIS_ITS ---
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 Required: Yes Burnishing Machine Operator Name: [id number] Accompanied by: Spouse Allergies cornflower [Cornflower] Allergy (Unknown, Verified 11/15/23 09:35) ITCHY EYES/HIVES peach [PEACH] Allergy (Unknown, Verified 11/15/23 09:35) NATURAL FRUIT - MOUTH ITCHES cornell [cherries] Allergy (Verified 11/15/23 09:35) Unknown No Known Drug Allergies Allergy (Verified 11/15/23 09:35) none apples Allergy (Unknown, Uncoded 11/15/23 09:35) Unknown peanut Allergy (Unknown, Uncoded 11/15/23 09:35) Unknown Medication List - Last Reconciled 01/31/24 by Billy Malcolm MD acamprosate 666 mg PO TID albuterol sulfate 90 mcg/actuation (ProAir HFA) 2 puffs PO Q6H PRN atorvastatin 40 mg PO BEDTIME blood pressure test kit-large As directed blood sugar diagnostic (FreeStyle Test strips) 4 times a day blood-glucose meter (FreeStyle [place] Lite kit) As directed budesonide-formoterol 160-4.5 mcg/actuation (Symbicort) 2 puffs PO calcium carbonate (Oyster Shell Calcium) 500 mg PO BID canagliflozin (Invokana) 300 mg PO QAM cetirizine 10 mg PO DAILY cholecalciferol (vitamin D3) 125 mcg PO QAM fenofibrate micronized 134 mg PO DAILY ferrous sulfate (FeroSul) 325 mg PO 3XW flash glucose scanning reader (FreeStyle Lakeisha 2 [place]) As directed flash glucose sensor (FreeStyle Lakeisha 2 Sensor kit) every 14 days folic acid 1 mg PO QAM gabapentin 100 mg PO BEDTIME insulin regular hum U-500 conc (Humulin R U-500 (Conc) Insulin Kwikpen) 250 units before breakfast ; 30 days lancets (FreeStyle Lancets) As directed lancets (TRUEplus Lancets) As directed linaclotide (Linzess) 145 mcg PO DAILY 30 days losartan 25 mg PO QAM mirabegron ER (Myrbetriq) 25 mg PO QAM nebulizers As directed nystatin-triamcinolone 100,000-0.1 unit/g-% 1 appl topical DAILY Oxygen Home Use As directed pantoprazole 20 mg PO DAILY pen needle, diabetic (BD Ultra-Fine Debbie Pen Needle) As directed once a day sertraline (Zoloft) 50 mg PO DAILY thiamine HCl (vitamin B1) 100 mg PO QAM trazodone 100 mg PO BEDTIME PRN HPI Comments Details: Shireen returns for follow-up. In the past, she was referred for evaluation because of abnormal EKG. With regard to cardiac history no previously documented myocardial infarction or any major concerns. She underwent workup with echocardiogram and coronary CTA which showed mild cardiomyopathy/mild CAD. Otherwise, she has many comorbidities including asthma/COPD/cirrhosis from alcohol excess/diabetes, dyslipidemia. Overall, she states she generally okay. No clear-cut anginal-type symptoms or other concerns. [facility] Medical History CAD (coronary artery disease) Dyspnea Asthma-COPD overlap syndrome Alcohol use History of methadone use Personal history of nicotine dependence Asthma Obesity (BMI 30-39.9) GERD (gastroesophageal reflux disease) Cirrhosis Vitamin D deficiency Hypertension Dyslipidemia Non-toxic multinodular goiter Osteoporosis Diabetic 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 with type 2 diabetes mellitus detention (current) use of insulin Diabetes type 2, uncontrolled Surgical History Status post biopsy of thyroid gland History of colonoscopy (~2016) Hx of cataract extraction History of esophagogastroduodenoscopy (EGD) (~2020) Hx of cardiac cath (~12/2015) Hx of cholecystectomy (~1980) History of bladder surgery (~06/2019) Family History Father Esophageal cancer Mother Diabetes mellitus HTN (hypertension) Social History Household Members: Spouse Alcohol intake: current Alcohol intake frequency: 3 or more drinks per day Alcohol type: beer Patient Tobacco Use Status: Former Tobacco user Tobacco use type: Cigarette Years Smoked: Onset 27, 2ppd x 24yrs, 48pyh, quit 11/2012 Advance Directives Date on File: 11/18/15 Review of Systems Const Denies chills, Denies fatigue, Denies fever(s), Denies weight gain and Denies weight loss ENT Denies dizziness Card Denies chest pain, Denies leg edema, Denies lightheadedness, Denies palpitations, Denies dyspnea on exertion, Denies orthopnea and Denies other Resp Denies cough and Denies dyspnea on exertion GI Denies hematochezia and Denies change in stool character Musc Denies abnormal gait, Denies muscle weakness, Denies numbness, Denies radiating pain into limb and Denies tingling Neuro Denies abnormal gait, Denies dizziness, Denies numbness and Denies tingling Endo Denies fatigue and Denies palpitations Physical Exam Vital Signs: Last Vital Signs Pulse 71 01/31/24 09:51 BP 114/50 L 01/31/24 09:51 BMI result Body Mass Index 32.5 Const General: comfortable and no acute distress Orientation/consciousness: patient oriented x3 HEENT Other: Unremarkable Head: Yes normal to inspection Neck Neck: Yes normal visual inspection Chest Chest palpation & inspection: normal inspection of the chest Resp Auscultation: clear to auscultation bilaterally Cardio Palpation: normal PMI Heart sounds: S1 normal heart sound present, S2 normal heart sound present, no gallops, no murmurs and no rubs GI Palpation (GI): Soft to palpation Back/Spine/Pelvis Other: unremarkable Skin General skin exam: no rashes or lesions noted Neuro General: patient oriented x3 Extrem General: Yes normal to inspection Psych Mental Status: mental status grossly normal Office Procedures EKG Details: EKG with underlying sinus rhythm; 71/Min; nonspecific ST-T changes anterior [place]; [place] [id number], Complete Assessment & Plan Assessment & Plan (1) CAD (coronary artery disease): Code(s): I25.10 - Atherosclerotic heart disease of red devil coronary artery without angina pectoris Category: Medical Plan: EKG has subtle T inversions in V1 to V3. In the coronary CTA minimal to mild stenosis noted somewhat diffusely including left main, LAD, circumflex and RCA. Mainly risk factor modification. Aggressive management of diabetes, dyslipidemia. (2) Cardiomyopathy: Code(s): I42.9 - Cardiomyopathy, unspecified Category: Medical Plan: In the past, mild cardiomyopathy with LVEF of 45-50% but repeat study shows it normalized. No specific interventions. (3) Excessive drinking alcohol: Code(s): F10.10 - Alcohol abuse, uncomplicated Category: Social Hx Plan: She states she drinks several beers essentially daily. Strongly advised to cut back. In the coronary CTA, there is mention of cirrhosis in the noncardiac findings. She can follow-up with GI. Plan Total time spent including review of data, counseling, documentation, coordination of care-32 minutes. Coding Level of Care Code Est Pt Level 4 (76412) Diagnoses CAD (coronary artery disease) I25.10 Cardiomyopathy I42.9 Excessive drinking alcohol F10.10 CPT Codes EKG - CPT: 43573-Dczqhoqeqqplnitep, Complete ([id number])
== END 2024-01-31 10:35 | disposition home or self-care (01) ==
PROVIDERS: PCP Family Medicine; Visit Provider Internal Medicine
DX: I25.10 Atherosclerotic heart disease of native coronary artery without angina pectoris (principal); I42.9 Cardiomyopathy, unspecified; F10.10 Alcohol abuse, uncomplicated
CPT/HCPCS: 93010; 99214

== ENCOUNTER → 2024-01-31 09:49 | Outpatient (BNVA) | payer MEDICAID, SELFPAY | PROVIDERS: PCP Family Medicine; Visit Provider Internal Medicine | DX: I25.10 Atherosclerotic heart disease of native coronary artery without angina pectoris (principal); I42.9 Cardiomyopathy, unspecified; F10.10 Alcohol abuse, uncomplicated; Z87.891 Personal history of nicotine dependence | CPT/HCPCS: 93005; 99212 ==

== ENCOUNTER 2024-02-08 10:24 | Outpatient (AMB) | payer OTHER, SELFPAY ==
--- NOTE | 2024-02-08 10:40 | MHC.OFFVIS ---
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 Required: No Radio Message Router: Radio Message Router offered & declined Accompanied by: Daughter Allergies cornflower [Cornflower] Allergy (Unknown, Verified 02/08/24 10:44) ITCHY EYES/HIVES peach [PEACH] Allergy (Unknown, Verified 02/08/24 10:44) NATURAL FRUIT - MOUTH ITCHES cornell [cherries] Allergy (Verified 02/08/24 10:44) Unknown No Known Drug Allergies Allergy (Verified 02/08/24 10:44) none apples Allergy (Unknown, Uncoded 02/08/24 10:44) Unknown peanut Allergy (Unknown, Uncoded 02/08/24 10:44) Unknown Medication List - Last Reconciled 02/08/24 by Lorenza Oshea LPN acamprosate 666 mg PO TID albuterol sulfate 90 mcg/actuation (ProAir HFA) 2 puffs PO Q6H PRN atorvastatin 40 mg PO BEDTIME blood pressure test kit-large As directed blood sugar diagnostic (FreeStyle Test strips) 4 times a day blood-glucose meter (LupatechStyle [place] Lite kit) As directed budesonide-formoterol 160-4.5 mcg/actuation (Symbicort) 2 puffs PO calcium carbonate (Oyster Shell Calcium) 500 mg PO BID canagliflozin (Invokana) 300 mg PO QAM cetirizine 10 mg PO DAILY cholecalciferol (vitamin D3) 125 mcg PO QAM fenofibrate micronized 134 mg PO DAILY ferrous sulfate (FeroSul) 325 mg PO 3XW flash glucose scanning reader (LupatechStyle Lakeisha 2 [place]) As directed flash glucose sensor (FreeStyle Lakeisha 2 Sensor kit) every 14 days folic acid 1 mg PO QAM gabapentin 100 mg PO BEDTIME insulin regular hum U-500 conc (Humulin R U-500 (Conc) Insulin Kwikpen) 250 units before breakfast ; 30 days lancets (FreeStyle Lancets) As directed lancets (TRUEplus Lancets) As directed linaclotide (Linzess) 145 mcg PO DAILY 30 days losartan 25 mg PO QAM mirabegron ER (Myrbetriq) 25 mg PO QAM nebulizers As directed nystatin-triamcinolone 100,000-0.1 unit/g-% 1 appl topical DAILY Oxygen Home Use As directed pantoprazole 20 mg PO DAILY pen needle, diabetic (BD Ultra-Fine Debbie Pen Needle) As directed once a day sertraline (Zoloft) 50 mg PO DAILY thiamine HCl (vitamin B1) 100 mg PO QAM trazodone 100 mg PO BEDTIME PRN HPI Comments Details: The patient is a 63 year woman with a known history of cirrhosis and asthma presenting with worsening shortness of breath. The patient states that for the last year or so she has been getting progressively more short of breath. She also has episodes when she is laying flat and she gets short of breath. She can also wake up short of breath from a sound sleep. The patient also has snoring and she does have an elevated [place] score of 11/24. The patient should have a sleep study in the near future. In the meantime we did taken for a walking oximetry the patient did desaturate down to 90%. She was qualify for oxygen. Therefore, will perform an overnight oximetry to see the patient needs oxygen at nighttime. The patient also is having issues with anemia. Since 2019 she has decreased her hemoglobin by 4 g. I explained the patient that with this decrease hemoglobin that she may have increased work of breathing based on her oxygen carrying capacity. She was recently started on medications for anemia as per the patient. Patient also has noticed lower extremity edema. She also has a very distended abdomen. Sent clear how much is ascites but explained to the patient that with her abdominal pressure being so elevated and her bed so firm makes it difficult for her lungs to expand. As far as imaging she did have a CT scan of the chest that we personally reviewed from November 2022. She does have pulmonary nodules that need follow-up. She is an ex-smoker so therefore more recent to follow as she is considered high risk for cancer. It was given a rads 3 score. This is likely because she is on the lung cancer screening program. The patient had previous CT scans that we also reviewed from back in 2018 which she had the same degree of scarring at the bases. Therefore the basilar scarring that she has in her current CT scan is likely result of a previous infection. She states that she was hospitalized with bad pneumonia back in 2012. 03/05/2023 the patient is here for pulmonary follow-up visit. The patient complains of dyspnea on exertion. Seems to be getting worse. Moderate with activity. Does get better with rest. The patient did undergo a pulmonary function study which we personally reviewed. She had a significantly low diffusing capacity of 27%. Therefore we had her undergo a 6 minutes walk test and the patient did desaturate down to 87%. She did well on 2 L pulse. Will start her on portable oxygen. She also should be using oxygen at nighttime. We have requested an overnight oximetry but she has not had had as of yet. The patient also underwent an echocardiogram. Appears to have a low EF 45-50%. She she continue with current respiratory therapy. Will go ahead and start her oxygen. 06/11/2023 the patient is here for a pulmonary follow-up visit. Dyspnea. The oxygen. She does use the oxygen with activity and also sleep. She did not have the overnight test time but does okay because she does need the oxygen with sleep. The patient however did not get the right tanks. She has 2 L continuous. She should be on 2 L pulse. The bigger tanks have been difficult for her to carry. I did call her [employer] in order to make sure that they provide her with the right conserving device tanks. She does well with a 2 L pulse conserving device tanks we can also consider a portable oxygen concentrator for better portability in the future. She continues to take her cardioprotective medications. Scan of the chest was through the lung cancer screening program back in November 2023. She did have low lung volumes with some atelectasis along with from pulmonary nodules. The patient has follow-up CT scan in November 2023. Will plan to follow-up with her after that. For now she will continue with current respiratory therapy. If she has any issues prior to that she will call for an earlier assessment. 02/08/2024 the patient is here for pulmonary follow-up visit. She continues to use the oxygen good effect. However, his extremely heavy. Her daughter has to help her with the oxygen tanks. The patient is better portability. A portable oxygen concentrator will be better for her. she had a previous titration study with a conserving device and she did very well on 2 L pulse. Therefore request a POC at 2 L pulse with activity. She can also use it for sleep. She continues use her respiratory therapy. Her last CT scan was over the summer demonstrating no significant changes. Although, still waiting for the final read. She will continue with lung cancer screening program. The patient follow-up in the spring. If any issues between now and then she will call for an earlier assessment. 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 Diabetes type 2, uncontrolled Surgical History Status post biopsy of thyroid gland History of colonoscopy (~2016) Hx of cataract extraction History of esophagogastroduodenoscopy (EGD) (~2020) Hx of cardiac cath (~12/2015) Hx of cholecystectomy (~1980) History of bladder surgery (~06/2019) Family History Father Esophageal cancer Mother Diabetes mellitus HTN (hypertension) Social History (Updated 02/08/24 @ 10:47 by Lorenza Oshea LPN) Household Members: Spouse Alcohol intake: current Alcohol intake frequency: 3 or more drinks per day Alcohol type: beer Patient Tobacco Use Status: Former Tobacco user Tobacco use type: Cigarette Years Smoked: Onset 27, 2ppd x 24yrs, 48pyh, quit 11/2012 Advance Directives Date on File: 11/18/15 Review of Systems Const Reports as per HPI, Reports daytime sleepiness and Reports difficulty sleeping ENT Reports no additional complaints Card Denies chest pain, Denies chest pain at rest, Denies chest pain with activity and Reports dyspnea on exertion Resp Denies chest congestion, Reports cough, Reports dyspnea on exertion and Denies wheezing GI Reports no additional complaints Musc Reports myalgias Skin/Breast Reports pruritus and Denies wounds Neuro Reports no additional complaints Psych Denies no additional complaints Neftali/Lymph Denies lymphadenopathy Aller/Immun Denies wheezing Physical Exam Vital Signs: Last Vital Signs Pulse 90 02/08/24 10:41 BP 112/60 11/01/24 10:41 Pulse Ox 96 02/08/24 10:41 Oxygen Delivery Method Nasal Cannula 02/08/24 10:41 Oxygen Flow Rate 2 02/08/24 10:41 BMI result Body Mass Index 32.4 Const General: healthy appearing and no acute distress Orientation/consciousness: patient oriented x3 HEENT Ears: hearing grossly normal bilaterally Eyes Pupils: Equal, round and reactive pupils present Neck Neck: Yes normal visual inspection Chest Chest palpation & inspection: normal inspection of the chest Resp Effort & Inspection: normal respiratory effort Auscultation: diminished lung sounds Cardio Rate: regular rate Rhythm: regular rhythm Heart sounds: S1 normal heart sound present and S2 normal heart sound present GI Auscultation: normal bowel sounds Skin General skin exam: no rashes or lesions noted Neuro General: patient oriented x3, gait normal and moves all extremities Cranial nerves: Yes Equal, round and reactive pupils present Psych Appearance: grossly normal Mental Status: mental status grossly normal Assessment & Plan Assessment & Plan (1) Asthma-COPD overlap syndrome: Code(s): J44.9 - Chronic obstructive pulmonary disease, unspecified Category: Medical (2) CHERISE (obstructive sleep apnea): Code(s): G47.33 - Obstructive sleep apnea (adult) (pediatric) Category: Medical (3) Dyspnea: Code(s): R06.00 - Dyspnea, unspecified Category: Medical Qualifiers: Dyspnea type: dyspnea on exertion Qualified Code(s): R06.09 - Other forms of dyspnea Plan continue symbicort ANNETTE as needed Oxygen 2L/pulse with activity and 2L/continues with sleep. Requesting POC for better portability. LDCT 11/2024 F/U 6 months Coding Level of Care Code Est Pt Level 4 (02246) Diagnoses Asthma-COPD overlap syndrome J44.9 CHERISE (obstructive sleep apnea) G47.33 Dyspnea on exertion R06.09 Dyspnea type: dyspnea on exertion Time Spent (min) 16
[2024-02-08 10:41] VITALS: BP 112/60; PULSE 90; O2SAT 96; BMI 32.4
== END 2024-02-08 10:57 | disposition home or self-care (01) ==
LOC: HO.HPS 10:24
PROVIDERS: PCP Student in an Organized Health Care Education/Training Program; Visit Provider Hospitalist
DX: J44.9 Chronic obstructive pulmonary disease, unspecified (principal); G47.33 Obstructive sleep apnea (adult) (pediatric); R06.09 Other forms of dyspnea
CPT/HCPCS: 99214

== ENCOUNTER → 2024-02-08 10:24 | Outpatient (BNVA) | payer OTHER, SELFPAY | PROVIDERS: PCP Student in an Organized Health Care Education/Training Program; Visit Provider Hospitalist | DX: J44.9 Chronic obstructive pulmonary disease, unspecified (principal); G47.33 Obstructive sleep apnea (adult) (pediatric); R06.09 Other forms of dyspnea | CPT/HCPCS: 99212 ==

== ENCOUNTER 2024-02-14 09:18 | Outpatient (AMB) | payer MEDICAID, SELFPAY ==
--- NOTE | 2024-02-14 09:24 | A.OFFVIS_ITS ---
Intake Visit Reasons: Left knee pain Intake Note: Shireen is a 63 year old female who presents with complaints of left knee pain. She describes her pain as sharp in nature. Her pain has gotten worse over the last year in spite of continued non operative treatments. She has had cortisone injections in the past which gave her fairly good relief. She has done physical therapy exercises which aggravated her pain. She has tried Tylenol and anti- inflammatory medicines which gave her minimal relief. She wishes to hold off on surgery if at all possible. Allergies cornflower [Cornflower] Allergy (Unknown, Verified 02/14/24 09:27) ITCHY EYES/HIVES peach [PEACH] Allergy (Unknown, Verified 02/14/24 09:27) NATURAL FRUIT - MOUTH ITCHES cornell [cherries] Allergy (Verified 02/14/24 09:27) Unknown No Known Drug Allergies Allergy (Verified 02/14/24 09:) none apples Allergy (Unknown, Uncoded 02/14/24 09:27) Unknown peanut Allergy (Unknown, Uncoded 02/14/24 09:27) Unknown Medication List - Last Reconciled 02/14/24 by Geo Tomlinson MD acamprosate 666 mg PO TID albuterol sulfate 90 mcg/actuation (ProAir HFA) 2 puffs PO Q6H PRN atorvastatin 40 mg PO BEDTIME blood pressure test kit-large As directed blood sugar diagnostic (FreeStyle Test strips) 4 times a day blood-glucose meter (FreeStyle Zuni Lite kit) As directed budesonide-formoterol 160-4.5 mcg/actuation (Symbicort) 2 puffs PO calcium carbonate (Oyster Shell Calcium) 500 mg PO BID canagliflozin (Invokana) 300 mg PO QAM cetirizine 10 mg PO DAILY cholecalciferol (vitamin D3) 125 mcg PO QAM fenofibrate micronized 134 mg PO DAILY ferrous sulfate (FeroSul) 325 mg PO 3XW flash glucose scanning reader (Space-Time InsightStyle Lakeisha 2 [place]) As directed flash glucose sensor (FreeStyle Lakeisha 2 Sensor kit) every 14 days folic acid 1 mg PO QAM gabapentin 100 mg PO BEDTIME insulin regular hum U-500 conc (Humulin R U-500 (Conc) Insulin Kwikpen) 250 units before breakfast ; 30 days lancets (FreeStyle Lancets) As directed lancets (TRUEplus Lancets) As directed linaclotide (Linzess) 145 mcg PO DAILY 30 days losartan 25 mg PO QAM mirabegron ER (Myrbetriq) 25 mg PO QAM nebulizers As directed nystatin-triamcinolone 100,000-0.1 unit/g-% 1 appl topical DAILY Oxygen Home Use As directed pantoprazole 20 mg PO DAILY pen needle, diabetic (BD Ultra-Fine Debbie Pen Needle) As directed once a day sertraline (Zoloft) 50 mg PO DAILY thiamine HCl (vitamin B1) 100 mg PO QAM trazodone 100 mg PO BEDTIME PRN PFSH Medical History CAD (coronary artery disease) Dyspnea Asthma-COPD overlap syndrome Alcohol use History of methadone use Personal history of nicotine dependence Asthma Obesity (BMI 30-39.9) GERD (gastroesophageal reflux disease) Cirrhosis Vitamin D deficiency Hypertension Dyslipidemia Non-toxic multinodular goiter Osteoporosis Diabetic 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 with type 2 diabetes mellitus 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 Diabetes type 2, uncontrolled Surgical History Status post biopsy of thyroid gland History of colonoscopy (~2016) Hx of cataract extraction History of esophagogastroduodenoscopy (EGD) (~2020) Hx of cardiac cath (~12/2015) Hx of cholecystectomy (~1980) History of bladder surgery (~06/2019) Family History Father Esophageal cancer Mother Diabetes mellitus HTN (hypertension) Social History (Updated 02/08/24 @ 10:47 by Lorenza Oshea LPN) Household Members: Spouse Alcohol intake: current Alcohol intake frequency: 3 or more drinks per day Alcohol type: beer Patient Tobacco Use Status: Former Tobacco user Tobacco use type: Cigarette Years Smoked: Onset 27, 2ppd x 24yrs, 48pyh, quit 11/2012 Advance Directives Date on File: 11/18/15 Physical Exam Const Other: Well-nourished well-developed very friendly female awake alert and oriented x3 in no acute distress Extrem Other: Bilateral lower extremity examination shows good capillary refill, no skin lesions noted, normal sensation light touch Left knee examination shows a minimal effusion, palpable crepitus with range of motion, pain with range of motion, no instability Office Procedures AMB Joint Injection/Aspiration Joint Injection/Aspiration Primary Site: left knee Prep: site was prepped using aseptic technique Injected: 40 mg of, DepoMedrol and 1% plain lidocaine Procedure: The patient tolerated the procedure well Coding - Large joint Procedure code (CPT) selection complete Results Reviewed Results Reviewed: X-rays of the patient's left knee taken previously show joint space narrowing, subchondral sclerosis, no acute bony abnormalities Assessment & Plan Assessment & Plan (1) Arthritis of left knee: Code(s): M17.12 - Unilateral primary osteoarthritis, left knee Category: Medical (2) Left knee pain: Code(s): M25.562 - Pain in left knee Plan Ms. Tavarez presents with left knee pain due to degenerative joint disease. I had a lengthy discussion with the patient regarding the treatment options. She wishes to hold off on surgery for as long as possible. I agree with this plan. The risks and benefits of a left knee cortisone injection were discussed at length with the patient. The patient wished to proceed. She tolerated the injection well. She will continue with her home exercise program. She will co ntact me prior to her follow-up appointment in 3 months should any questions or concerns arise. Feel free to call me at any time should questions regarding her orthopedic management arise. I spent 22 minutes in reviewing the patient's records and imaging studies, seeing the patient and documenting in the medical record. Orders: Orders AMB Joint Injection/Aspiration 02/14/24 M17.12 - Unilateral primary osteoarthritis, left knee Coding Level of Care Code Est Pt Level 3 (94216) Complex EM visit Add On G2211 Diagnoses Arthritis of left knee M17.12 Left knee pain M25.562 CPT Codes Coding - Large joint: 54658 - Large joint ([id number])
== END 2024-02-14 09:51 | disposition home or self-care (01) ==
LOC: HO.HOS 09:18
PROVIDERS: PCP Student in an Organized Health Care Education/Training Program; Visit Provider Orthopaedic Surgery
DX: M17.12 Unilateral primary osteoarthritis, left knee (principal)
CPT/HCPCS: 20610; 99213

== ENCOUNTER → 2024-02-14 09:18 | Outpatient (BNVA) | payer MEDICAID, SELFPAY | PROVIDERS: PCP Student in an Organized Health Care Education/Training Program; Visit Provider Orthopaedic Surgery | DX: M17.12 Unilateral primary osteoarthritis, left knee (principal) | CPT/HCPCS: 20610; 99212; J1010; J2003 ==

== ENCOUNTER 2024-02-28 10:41 | Outpatient (REF) | payer MEDICAID, SELFPAY ==
[2024-02-28 12:05] LABS: Hematocrit 38.1 % (37.0-47.0); Hemoglobin 13.1 g/dl (12.0-16.0); Mean Corpuscular HGB Conc 34.4 g/dl (31.0-35.0); Mean Corpuscular Hemoglobin 32.8 pg (27.0-33.0); Mean Corpuscular Volume 95.5 fL (80.0-98.0); Mean Platelet Volume 10.1 fL (9.4-12.3); Platelet Count 219 X10*3/uL (160-400); Red Blood Count 3.99 X10*6/uL (4.20-5.50); Red Cell Distribution Width 13.3 % (11.0-16.0); White Blood Count 5.6 X10*3/uL (4.8-10.8)
[2024-02-28 12:09] LABS: INTERNATIONAL NORM RATIO 1.1 (0.9-1.1); Prothrombin Time 12.6 SEC (10.9-12.4)
[2024-02-28 12:15] LABS: Estimated Average Glucose 163 mg/dL; Hemoglobin A1C 190.4094 umol/L; Hemoglobin A1c % 7.3 % (<6.0); Total Hemoglobin (HGBA1C) 3358.8045 umol/L
[2024-02-28 12:54] LABS: Alanine Aminotransferase 71 U/L (0-31); Albumin Level 4.2 g/dL (3.5-5.0); Alkaline Phosphatase 50 U/L (39-117); Anion Gap 14 (12-20); Aspartate Amino Transferase 78 U/L (5-31); Bilirubin Total 0.6 mg/dL (0.0-1.0); Blood Urea Nitrogen 6 mg/dL (9-16); Calcium 10.2 mg/dL (8.4-10.2); Carbon Dioxide 32 mmol/L (22-29); Chloride 101 mmol/L (96-108); Cholesterol 128 mg/dL (<200); Estimated Glomerular Filt Rate > 60; Glucose Random 84 mg/dL (60-115); HDL Cholesterol 46 mg/dL (>40); LDL Cholesterol Calculated 56 mg/dL (<100); Sodium 143 mmol/L (135-145); Total Protein 7.6 g/dL (6.5-8.0); Triglycerides 132 mg/dL (<150)
[2024-02-28 13:09] LABS: Creatinine Urine 80.33 mg/dL; Microalbumin Urine < 5.0 mg/L
[2024-02-28 13:13] LABS: Syphilis Screen Nonreactive (Nonreactive); TSH reflex Free T4 1.19 uIU/mL (0.32-4.0); Vitamin D 25-OH Total 25.9 ng/mL (>30)
[2024-02-28 13:14] LABS: HBS Num1 16.87 mIU/mL (0-7.99); HBc Num1 0.08 S/CO (0.00-0.79); HBsAGNum1 0.39 S/CO (0.00-0.99); HIV AB/AG Nonreactive (Nonreactive); HIV Num 1 0.06 S/CO (0.00-0.99); Hepatitis B Core Antibody Nonreactive (Nonreactive); Hepatitis B Surface Antigen Negative (Negative); ~HepC Num1 0.26 S/CO (0.00-0.79); ~Hepatitis B Surface Antibody REACTIVE (Nonreactive); ~Hepatitis C Antibody Nonreactive (Nonreactive)
[2024-02-28 13:17] LABS: Folate 10.8 ng/mL (> or = 4.0); Vitamin B12 322 pg/mL (200-900)
[2024-02-28 18:14] LABS: CT PCR NOT DETECTED (Not Detect.); NG PCR NOT DETECTED (Not Detect.)
[2024-03-04 16:18] LABS: FIB-ALT 55 U/L (6-29); FIB-Alpha-2-Macroglobulin 301 mg/dL (106-279); FIB-Apolipoprotein A1 154 mg/dL (101-198); FIB-GGT 165 U/L (3-65); FIB-Haptoglobin <8 mg/dL (43-212); FIB-Total Bilirubin 0.5 mg/dL (0.2-1.2); Liver Fibrosis Score 0.88; Liver Fibrosis Stage F4; Nec Inflam Act Grade A2; Nec Inflam Act Score 0.54; Reference ID 5221817
== END 2024-02-28 10:42 | disposition home or self-care (01) ==
LOC: HO.LAB 10:41
PROVIDERS: PCP Student in an Organized Health Care Education/Training Program; Visit Provider Student in an Organized Health Care Education/Training Program
DX: Z00.00 Encounter for general adult medical examination without abnormal findings (principal); K70.30 Alcoholic cirrhosis of liver without ascites; Z11.59 Encounter for screening for other viral diseases
CPT/HCPCS: 80053; 80061; 81596; 82043; 82306; 82570; 82607; 82746; 83036; 84443; 85027; 85610; 86704; 86706; 86780; 86803; 87340; 87389; 87491; 87591

== ENCOUNTER 2024-03-20 09:31 | Outpatient (AMB) | payer OTHER, SELFPAY ==
--- NOTE | 2024-03-20 09:36 | A.OFFVIS_ITS ---
Vital Signs 03/20/24 09:37 Height 5 ft 2 in Weight 177 lb BMI 32.4 BP 116/40 L Blood Pressure Location Lt brachial Position Sitting Pulse 73 Intake Visit Reasons: 6 month follow up cirrhosis Intake Note: Patient 6 months follow up for chronic constipation and Abd US results. Patient cc: dizziness with fatigue( diastolic BP was 40/low), abdominal bloating, upper abdominal pain with the touch, constipation, and some swallowing problems with tablets and sometimes with saliva. High Man Required: No Accompanied by: Family/Other Allergies cornflower (Cornflower) Allergy (Unknown, Verified 09/24/24 17:14) ITCHY EYES/HIVES peach (PEACH) Allergy (Unknown, Verified 09/24/24 17:14) NATURAL FRUIT - MOUTH ITCHES cornell (cherries) Allergy (Verified 09/24/24 17:14) Unknown No Known Drug Allergies Allergy (Verified 09/24/24 17:14) none apples Allergy (Unknown, Uncoded 09/16/24 09:37) Unknown peanut Allergy (Unknown, Uncoded 09/16/24 09:37) Unknown Medication List - Last Reconciled 03/20/24 by Julissa Newberry MD acamprosate 666 mg PO TID albuterol sulfate 90 mcg/actuation (ProAir HFA) 2 puffs PO Q6H PRN atorvastatin 40 mg PO BEDTIME blood pressure test kit-large As directed blood sugar diagnostic (FreeStyle Test strips) 4 times a day blood-glucose meter (FreeStyle Allison Lite kit) As directed budesonide-formoterol 160-4.5 mcg/actuation (Symbicort) 2 puffs PO calcium carbonate (Oyster Shell Calcium) 500 mg PO BID canagliflozin (Invokana) 300 mg PO QAM cetirizine 10 mg PO DAILY cholecalciferol (vitamin D3) 125 mcg PO QAM fenofibrate micronized 134 mg PO DAILY ferrous sulfate (FeroSul) 325 mg PO 3XW flash glucose scanning reader (RoomlrStyle Lakeisha 2 [place]) As directed flash glucose sensor (FreeStyle Lakeisha 2 Sensor kit) every 14 days folic acid 1 mg PO QAM gabapentin 100 mg PO BEDTIME insulin regular hum U-500 conc (Humulin R U-500 (Conc) Insulin Kwikpen) 250 u nits before breakfast ; 30 days lancets (FreeStyle Lancets) As directed lancets (TRUEplus Lancets) As directed linaclotide (Linzess) 145 mcg PO DAILY 30 days losartan 25 mg PO QAM mirabegron ER (Myrbetriq) 25 mg PO QAM nebulizers As directed nystatin-triamcinolone 100,000-0.1 unit/g-% 1 appl topical DAILY Oxygen Home Use As directed pantoprazole 20 mg PO DAILY pen needle, diabetic (BD Ultra-Fine Debbie Pen Needle) As directed once a day sertraline (Zoloft) 50 mg PO DAILY thiamine HCl (vitamin B1) 100 mg PO QAM trazodone 100 mg PO BEDTIME PRN HPI HPI 6 month follow up cirrhosis: Details: GI CLINIC VISIT FOR THIS 63-YEAR-OLD TURKISH-SPEAKING FEMALE FOR FOLLOW-UP OF CIRRHOSIS AND GERD. 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 Notes mild abdominal pain sometimes - always in the morning When she wakes up she has nausea and abdominal pain sometimes Pain can last for an hour - gets better after she drinks coffee Notes intermittent constipation - takes plums with good results. Has a BM daily consisting of hard stools and sometimes can skip 1- 2 days. Drinks 2-3 beers a day ( has cut back from 7 beers daily) Constipation is better with medications - can have a BM 3 times a day and sometimes skip a day Can sometimes note abdominal bloating and distension ?PAST VISIT: Pt denies any change in her symptoms Complains of chronic upper abdominal pain and abdominal bloating Belly swells up and she feels full after eating Chronic constipation and sometimes she can go 5 days without a BM Pt is taking a medication for constipation and does not know the name (advised to check the medication and call back with the name when she gets home today) EGD and bx results reviewed with the patient Notes partial improvement in swallowing after EGD with balloon dilation Complains of dysphagia to solids - food gets stuck in the lower chest. Dysphagia with all meals. Swallowing is painful. Drinking 3 beers a day. ?? ? Doing so so - notes abdominal bloating, gas and diarrhea Requests an EGD. Denies heartburn since she is taking medications - Pepcid 10 mg twice a day. ? (Omeprazole was stopped due to concern for side effects of diarrhea). ? Pt admits to drinking 2 beers a day and trying to cut back. ? Rib pain has improved only hurts occasionally. ? She does not take medications as prescribed. Sometimes she forgets LABS IN [facility]:?12/11/19 LFTS SHOWED AST OF 98, ALT OF 54, ALBUMIN 4.3 05/29 NOR MAL CBC WITH PLATELET COUNT OF 218, INR 1, NORMAL BILIRUBIN WITH AST OF 43, ALT 72, ALKALINE PHOSPHATASE 74 ? 09/2017 HEPATITIS-B ANTIBODY WAS POSITIVE, NO OTHER HEPATITIS SEROLOGIES AVAILABLE IN [facility]. IMAGING STUDIES: 10/10/23 ABD US SHOWED: 1. Coarse and heterogeneous hepatic echotexture, increased in echogenicity, characteristic of hepatocellular disease with substantially limited visualization. Hepatomegaly, right hepatic lobe measures 17.9 cm and left hepatic lobe measures 17.0 cm. 2. Gallbladder surgically absent. 03/26/[address] SCAN SHOWED: Cirrhosis without evidence of hepatocellular carcinoma. Portal hypertension, patent portal vein, mild splenomegaly. No ascites. 09/2021 BARIUM SWALLOW - normal 02/16/21 ABD US SHOWED: 1. No sonographic evidence of focal liver lesion. 2. Multiple presumed hemangioma within the spleen, the largest measures 1.4 cm, appears stable since 12/18/2018. 04/2020 abdominal ultrasound with elastography showed:Hepatic steatosis without focal lesion. There is hepatopedal flow seen in the portal vein.Visualized pancreas, gallbladder and the right kidney is unremarkable. On Elastography there is mild to moderate fibrosis stage F2 - F3? ENDOSCOPIC STUDIES: 02/25/21 EGD SHOWED: ESOPHAGUS: A 3-4 mm benign appearing nodule in the mid esophagus at 30 cms - biopsied. GE junction at 38 cms.? Tortuous esophagus with increased tertiary contractions without stricture or ring - empiric balloon dilation was performed with a 19 mm CRE balloon x 60 sec.? Biopsies were obtained from proximal esophagus to check for EOE No esophagitis or Bui's. STOMACH: Moderate non-erosive portal gastropathy involving the gastric body and fundus. Mild gastric erythema. Biopsies were obtained.? Gastric polyp. DUODENUM: Normal - biopsies were negative for celiac sprue. B. Gastric antrum, biopsy: -Mild reactive gastropathy with ectatic mucosal vessels and focal minimal chronic inflammation; negative for H. pylori. -No active inflammation.C. Gastric polyp, biopsy: -Fundic gland polyp; negative for H. pylori. -No active inflammation.D. Esophagus, mid, nodule, biopsy: -Benign squamous mucosa with focal intraepithelial neutrophils and eosinophils, consistent with acute esophagitis; negative for fungi.? -No columnar mucosa present.E. Esophagus, proximal, biopsy: -Squamous mucosa with no specific change.? -No evidence of eosinophilic esophagitis. 05/2011 EGD showed hemorrhagic gastritis and no esophageal varices were seen ? 04/2016 colonoscopy was performed by Dr. Hutchinson and showed rectosigmoid region appeared thickened with a few patchy areas of flat hyperplastic appearing tissue. ? Biopsies showed hyperplastic colonic mucosa. 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 Diabetes type 2, uncontrolled Surgical History Status post biopsy of thyroid gland History of colonoscopy (~2016) Hx of cataract extraction History of esophagogastroduodenoscopy (EGD) (~2020) Hx of cardiac cath (~12/2015) Hx of cholecystectomy (~1980) History of bladder surgery (~06/2019) Family History Father Esophageal cancer Mother Diabetes mellitus HTN (hypertension) Social History Household Members: Spouse Alcohol intake: current Alcohol intake frequency: 3 or more drinks per day Alcohol type: beer Patient Tobacco Use Status: Former Tobacco user Tobacco use type: Cigarette Years Smoked: Onset 27, 2ppd x 24yrs, 48pyh, quit 11/2012 Advance Directives Date on File: 02/28/21 Review of Systems Const All systems reviewed & are unremarkable except as noted in HPI and below Physical Exam Vital Signs: Last Vital Signs Pulse 73 03/20/24 09:37 BP 116/40 L 03/20/24 09:37 BMI result Body Mass Index 32.4 Const General: healthy appearing and no acute distress Nutritional Appearance: obese Orientation/consciousness: patient oriented x3 Limitations: language barrier HEENT Head: Yes normal to inspection Ears: hearing grossly normal bilaterally Eyes Sclerae: sclerae normal Pupils: Equal, round and reactive pupils present Neck Neck: Yes normal visual inspection Chest Chest palpation & inspection: normal inspection of the chest Resp Effort & Inspection: normal respiratory effort Auscultation: clear to auscultation bilaterally Cardio Palpation: normal PMI Rate: regular rate Rhythm: regular rhythm Heart sounds: S1 normal heart sound present, S2 normal heart sound present and no murmurs GI Inspection: Yes distended and Yes obesity Palpation (GI): Soft to palpation, nontender and No hepatosplenomegaly present Auscultation: normal bowel sounds Rectal Exam - Female: deferred Skin General skin exam: no rashes or lesions noted Neuro General: patient oriented x3, gait normal and moves all extremities Cranial nerves: Yes Equal, round and reactive pupils present Psych Appearance: grossly normal Mental Status: mental status grossly normal Assessment & Plan Assessment & Plan (1) Cirrhosis: Comment: (Alcohol-related liver cirrhosis) Code(s): K74.60 - Unspecified cirrhosis of liver Category: Medical (2) GERD (gastroesophageal reflux disease): Code(s): K21.9 - Gastro-esophageal reflux disease without esophagitis Category: Medical (3) Dysphagia, pharyngoesophageal phase: Code(s): R13.14 - Dysphagia, pharyngoesophageal phase Category: Medical (4) Colon cancer screening: Comment: 2016 Colonoscopy was performed by Dr Hutchinson and showed thickened mucosa at 2 cms in the rectum - hyperplastic on bx Repeat colon advised in 10 yrs (would recommend to discontinue colon cancer screening given multiple comorbidities) Code(s): Z12.11 - Encounter for screening for malignant neoplasm of colon Category: Medical (5) Chronic constipation: Code(s): K59.09 - Other constipation Category: Medical Plan 63 YF followed in GI for GERD and alcohol-related liver disease - unclear if patient has nina cirrhosis since she has a normal platelet count, INR and albumin level. She is trying to cut back on her alcohol intake. Pt was reminded to have labs checked (ordered during her last TV appt).? Abd US with with elastography showed hepatic steatosis and mild to moderate fibr osis stage F2 - F3?. Patient was advised to schedule a barium swallow for evaluation of dysphagia 02/15/23 Complains of chronic upper abdominal pain and abdominal bloating Belly swells up and she feels full after eating Pt advised to schedule an Abd CT scan with contrast for evaluation of abd pain and for HCC surveillance 05/24/23 She was prescribed Linzess 145 mcg daily for constipation 10/04/23 Notes mild abdominal pain sometimes - always in the morning When she wakes up she has nausea and abdominal pain sometimes Pain can last for an hour - gets better after she drinks coffee Constipation is better with medications - can have a BM 3 times a day and sometimes skip a day Can sometimes note abdominal bloating and distension Pt advised to schedule an abd US for FU of MASH/early cirrhosis (MELDNa score of 6) 03/20/24 When she wakes up she has nausea and abdominal pain sometimes Pain can last for an hour - gets better after she drinks coffee Notes intermittent constipation - takes plums with good results. Has a BM daily consisting of hard stools and sometimes can skip 1- 2 days. Pt advised to continue Linzess 145 mcg daily for constipation FU in 4 months - FU of cirrhosis and chronic constipation Orders: Orders US abdomen limited 03/20/24 K74.60 - Unspecified cirrhosis of liver Medications: Changed From linaclotide 145 mcg PO DAILY 30 days 30 caps 3RF K59.09 - Other constipation To linaclotide (Linzess) 145 mcg PO DAILY 90 caps 1RF 90 days K59.09 - Other constipation Coding Level of Care Code Est Pt Level 4 (96909) Diagnoses Cirrhosis K74.60 GERD (gastroesophageal reflux disease) K21.9 Dysphagia, pharyngoesophageal phase R13.14 Colon cancer screening Z12.11 Chronic constipation K59.09 Time Spent (min) 21
--- OUTSIDE RECORDS SUMMARY | 2024-03-20 09:36 | XMS_ITS | Continuity of Care Document ---
Author Organization [facility] Address [facility] [place] [address] Phone Care Team Providers Care Carton Wrapper Name Role Phone Wilian ANTHONY, Nonyerem Unavailable Unavailable Allergies, Adverse Reactions, Alerts Substance Reaction Status Criticality No Known Drug Allergies Active No I nformation Medications Medication Instructions Dosage Effective Dates (start - stop) Status Comments amlodipine 10 mg tablet take 1 tablet by oral route every day 10 MG - Active hypertension Aspir-81 81 mg tablet,delayed release take 1 tablet by oral route every day - Active x 90 days, 1 refill. Problems Condition Type Effective Dates (start - stop) Clini pako Status Comments No Known Problems Procedures Procedure Date OFFICE/OUTPATIENT VISIT, EST Pap Lb, Ct-Ng, LTT-qy-Ultsb [facility] Referral Reconciliation [facility] Chart Review OFFICE/OUTPATIENT VISIT, EST CBC With Differential/Platelet-77421 Oct ROUTINE VENIPUNCTURE Comp. Metabolic Panel [id number] 2016 Hgb A1c with eAG Estimation-31734 [id number] PREV VISIT, EST, AGE 40-64 OFFICE/OUTPATIENT VISIT, EST CBC With Differential/Platelet-64375 Sep ROUTINE VENIPUNCTURE Comp. Metabolic Panel [id number] 2015 Hgb A1c with eAG Estimation-[id number] Panel [id number] [id number] Advance Directives Directive Yes / No Effective Date File Name No Information Encounters Encounter Description Practice Location Reason(s) For Visit Diagnoses Date Provider Providers Copied on Encounter [facility], [address], [place], [place], [id number], [place] tel: [facility] [place] No Information 8 Osuji Nonyerem. [address], [place], [address], [place]. tel: [phone] [facility], [address] [facility], [place], [place], [id number], [place] tel: [facility] [place] Abnormal mammogram 7 [facility] [employer]. [address] [place], [address], [place]. tel: [phone] Consulting Provider: Vannesa Groves ams, MA. OFFICE/OUTPA TIENT VISIT, EST [facility], [address], [place], [place], [id number], [place] tel: [facility] [place] colon cancer screen (chief complaint) hypertensi on (chief complaint) pap test (chief complaint) mammogram (chief complaint) Encounter for screening for respiratory tuberculosisBod y mass index (BMI) 40.0-44.9, adultCervical cancer screeningOther screening mammogramColon cancer screeningBorder line systolic HTN 7 Osuji Nonyerem. [address], [place], [address], [place]. tel: [phone] [facility], [address], [place], [place], [id number], [place] tel: [facility] [place] No Information 7 [facility]. [address] [place], [address], [place]. tel: [phone] Consulting Provider: Shireen Vivar LVN. OFFICE/OUTPA TIENT VISIT, EST [facility], [address] [place], [id number], tel: [facility] General follow up (chief complaint) hypertensi on (chief complaint) diabetes/t hyroid screen (chief complaint) mammogram (chief complaint) Body mass index (BMI) 38.0-38.9, adultBorderline systolic HTNScreening for diabetes mellitusScreeni ng for thyroid disorderOther screening mammogram 7 Osuji Nonyerem. [facility] [address] [place], [facility], [place]. tel: [phone] PREV VISIT, EST, AGE 40-64 [facility], [facility] [address] [place], [id number], tel: Osmin [place] No Information 6 Osuji Nonyerem. [facility] [address] [place], [facility], . tel: [phone] OFFICE/OUTPA TIENT VISIT, EST [facility], [facility] [address], [place], [place], [id number], tel: [facility] Physical (chief complaint) preventive exam (chief complaint) rash (chief complaint) BP check (chief complaint) Body mass index (BMI) 40.0-44.9, adultEncounter for preventative adult health care exam with abnormal findingsScreeni ng for diabetes mellitusScreeni ng for thyroid disorderElevate d blood-pressure reading, without diagnosis of hypertensionPso riasis 6 Osuji Nonyerem. [facility] [address] [place], [facility], [place]. tel: [phone] Family History Family Member Type Diagnosis Age At Onset No Information Payers Payer name Insurance type Covered alliance party ID Authoriza tion(s) SELF PAY Category C [id number] Social History Type Description Quantity Date Captured Comments Sex Female Smoking Status No Information Chief Complaint And Reason For Visit No Information Plan Of Treatment Date Type Action Status Goal MMR Vaccine. Due on 017 due Goal Flu Vaccine. Due on due Goal Tdap. Due on due Goal Td vaccine. Due on due Goal FOBT. Due on due Goal Tdap. Due on due Goal Flu Vaccine. Due on due Goal FOBT. Due on due Goal Td vaccine. Due on due Goal MMR Vaccine. Due on due Goal Dietary manageme nt education, guidance, and counseling completed Goal Flu Vaccine. Due on due Goal MMR Vaccine. Due on due Goal Td vaccine. Due on due Goal Colonoscopy. Due on due Goal Tdap. Due on due Goal FOBT. Due on due Goal Dietary manageme nt education, guidance, and counseling completed Goal Dietary manageme nt education, guidance, and counseling completed Referral Ordered: Diagnosticmammographydigital Appointment date/timeframe: 3 Weeks ordered Referral Ordered: COLONOSCOPY AND BIOPSY Appointment date/timeframe: 3 Weeks ordered Referral Ordered: Screeningmammographydigital Appointment date/timeframe: 3 Weeks ordered Patient Education A Healthy Lifestyle: Ca re Instructions completed Patient Education When You Are Overweight : Care Instruct completed History Of Present Illness Encounter Date Complaint History Of Prese nt Illness hypertension It is currently improving. The hypertension is exacerbated by stress. Pertinent negatives include chest pain, claudication, headache, hematuria, irregular heartbeat/palpitations and vomiting. colon cancer screen mammogram pap test Currently pregna nt: no. : 5. Parity: Term: 4. : 1. Livin. The patient states she uses none and none for control. Negative for: breast discharge, breast lump(s) and breast pain.The patient is not post-menopausal. Pertinent negatives include abnormal bleeding (hematology), abnormal vaginal bleeding, anxiety, decreased libido, depression, difficulty falling sleep, dyspareunia, history of infertility, nocturia, sexual dysfunction, sleep disturbances, urinary incontinence, urinary urgency, vaginal discharge and vaginal itching. Diet high calorie.The patient states her exercise level is sedentary and frequency is 2-3 times/week. The patient does not use tobacco. She has not been exposed to passive smoke. She does not drink alcohol. General follow up hypertension It is currently improving. The hypertension is exacerbated by stress. Pertinent negatives include chest pain, claudication, confusion, diaphoresis, dyspnea, epistaxis, fatigue, headache, hematuria, irregular heartbeat/palpitations, nausea, tinnitus, transient weakness, tremor, visual disturbances and vomiting. diabetes/thyroid screen mammogram preventive exam : 5. Paulette ty: Term: 4. : 1. Livin. Negative for dysmenorrhea and menorrhagia. Negative for: breast discharge, breast lump(s) and breast pain.The patient is not post-menopausal. Menopausal symptoms negative for: insomnia, night sweats and vaginal dryness. Pertinent negatives include abnormal bleeding (hematology), abnormal vaginal bleeding, anxiety, decreased libido, depression, difficulty falling sleep, dyspareunia, history of infertility, nocturia, sexual dysfunction, sleep disturbances, urinary incontinence, urinary urgency, vaginal discharge and vaginal itching. Diet high calorie. She reports getting calcium supplement daily. She does take multivitamins occasionally. Folic acid is taken occasionally.The patient states her exercise frequency is 2-3 times/week. The patient does not use tobacco. She has not been exposed to passive smoke. She does not drink alcohol. rash The patient pres ents for rash. The symptom(s) are described as mild. Affected area(s) include both elbows and both feet. The patient describes the affected area(s) as scaly. Relieving factors include antifungal cream and topical steroids. Associated symptoms include dry skin and scaling. Pertinent negatives include bleeding, cracking and fatigue. BP check The symptoms are reported as being mild. The symptoms occur randomly. She states the symptoms are chronic and are fairly controlled. No fever, no headaches, no chest pain, no cough, no shortrness of breath, no nausea, no vomiitng, no fatigue, no blurry vision Physical Instructions Date Instruction Additional Infor tess DASH DIET/LOW SALT D IET encouraged. BP goal <140/<90. Continue medications but dose increased to amlodipine 10 mg PO QD. Related to Borderline systolic HTN referral in chart Related to Col on cancer screening D and E; goal BMI<25 Counseled regarding importance of weight loss. Follow up in 3 months or sooner for any acute changes Related to Body mass index (BMI) 40.0-44.9, adult pap smear today Related to Cervi pako cancer screening CBE normal. mammogra m referral in October 2016 Related to Other screening mammogram Giving encouragement to exercise Related to Body mass index (BMI) 40.0-44.9, adult Dietary management e ducation, guidance, and counseling Related to Body mass index (BMI) 40.0-44.9, adult Mammogram referral today. Relate d to Other screening mammogram D and E; goal BMI<25 Counseled regarding importance of weight loss. Follow up in 3 months or sooner for any acute changes for a PAP smear with MD Wilian Related to Body mass index (BMI) 38.0-38.9, adult A1c today Related to Scree janice for diabetes mellitus thyroid labs today Related to Sc reening for thyroid disorder DASH DIET/LOW SALT D IET encouraged. BP goal <140/<90. will start medication today.ELevated BP in 2015. Elevated BP today. start medication today Related to Borderline systolic HTN Dietary management e ducation, guidance, and counseling Related to Body mass index (BMI) 38.0-38.9, adult Giving encouragement to exercise Related to Body mass index (BMI) 38.0-38.9, adult clobetasol cream, use as directe d Related to Psoriasis DASH DIET/LOW SALT D IET encouraged. BP goal <140/<90. keep a BP log Related to Elevated blood-pressure reading, without diagnosis of hypertension check labs and HIV t est today. aspirin daily encouraged. deferred. pap smear/mammogram next clinic visit Related to Encounter for preventative adult health care exam with abnormal findings A1c today... Related to Robert camacho for diabetes mellitus D and E; goal BMI<25 Counseled regarding importance of weight loss. Related to Body mass index (BMI) 40.0-44.9, adult thyroid labs today Related to Sc reening for thyroid disorder Dietary management e ducation, guidance, and counseling Related to Body mass index (BMI) 40.0-44.9, adult Giving encouragement to exercise Related to Body mass index (BMI) 40.0-44.9, adult Assessments Type Assessment Date No Information
[2024-03-20 09:37] VITALS: BP 116/40; PULSE 73; BMI 32.4
== END 2024-03-20 10:12 | disposition home or self-care (01) ==
PROVIDERS: PCP Student in an Organized Health Care Education/Training Program; Visit Provider Internal Medicine Gastroenterology
DX: K74.60 Unspecified cirrhosis of liver (principal); K21.9 Gastro-esophageal reflux disease without esophagitis; R13.14 Dysphagia, pharyngoesophageal phase; Z12.11 Encounter for screening for malignant neoplasm of colon; K59.09 Other constipation
CPT/HCPCS: 99499

== ENCOUNTER → 2024-03-20 09:31 | Outpatient (BNVA) | payer OTHER, SELFPAY | PROVIDERS: PCP Student in an Organized Health Care Education/Training Program; Visit Provider Internal Medicine Gastroenterology ==

== ENCOUNTER 2024-04-03 09:21 | Outpatient (REF) | payer OTHER, SELFPAY ==
--- NOTE | ~2024-04-03 | US_ITS ---
EXAMINATION: US ABDOMEN LIMITED CLINICAL INFORMATION: Unspecified cirrhosis of liver. COMPARISON: Ultrasound abdomen 10/10/2023 and 11/15/2022. CT abdomen 03/26/2023. X-ray abdomen 05/30/2018. TECHNIQUE: Real-time imaging of the right upper quadrant abdominal viscera. Limited visualization due to bowel gas. FINDINGS: PANCREAS: Limited visualization of pancreatic tail and head. Imaged portion of pancreatic body is unremarkable. LIVER: Hepatomegaly, 19.1 cm. Diffusely heterogeneous and coarse hepatic echotexture with lobulated and nodular hepatic contour severely limits visualization and is compatible with provided history of cirrhosis. GALLBLADDER: Surgically absent. COMMON BILE DUCT: Normal in caliber measuring 0.6 cm in diameter. RIGHT KIDNEY: No hydronephrosis. No renal calculi. Limited visualization. The kidney measures 12.2 cm in maximum dimension. FREE FLUID: None. US/US abdomen limited IMPRESSION: 1. Hepatomegaly, 19.1 cm. Diffusely heterogeneous and coarse hepatic echotexture with lobulated and nodular hepatic contour severely limits visualization and is compatible with provided history of cirrhosis. 2. Gallbladder surgically absent. Electronically signed by: Charity Edward MD 04/07/2024 02:41 PM EST
--- OUTSIDE RECORDS SUMMARY | 2024-04-03 09:24 | XMS_ITS | Continuity of Care Document ---
Author Organization [facility] Address [facility] [place] [address] Phone Care Team Providers Care Door Builder Name Role Phone Wilian ANTHONY, Nonyerem Unavailable [...] Date OFFICE/OUTPATIENT VISIT, EST Pap Lb, Ct-Ng, EPO-ph-[id number] [facility] Referral Reconciliation [facility] Chart Review OFFICE/OUTPATIENT VISIT, EST CBC With Differential/Platelet-[id number] Oct ROUTINE VENIPUNCTURE Comp. Metabolic Panel [phone] Hgb A1c with eAG Estimation-20016 [id number] PREV VISIT, EST, AGE 40-64 OFFICE/OUTPATIENT VISIT, EST CBC With Differential/Platelet-60799 Sep ROUTINE VENIPUNCTURE Comp. Metabolic Panel [phone] Hgb A1c with eAG Estimation-[id number] Panel [id number] [id number] Advance Directives Directive Yes / No Effective Date File Name No Information Encounters Encounter Description Practice Location Reason(s) For Visit Diagnoses Date Provider Providers Copied on Encounter [facility], [address], [place], [place], [id number], [place] tel: [facility] [place] No Information 8 Osuji Nonyerem. [address], [place], [address], [place]. tel: [phone] [facility], [address] [facility], [place], [place], [id number], [place] tel: [facility] [place] Abnormal mammogram 7 [facility]. [address] [place], [address], [place]. tel: [phone] Consulting Provider: Vanneas Groves ams, MA. OFFICE/OUTPA TIENT VISIT, EST [facility], [address], [place], [place], [id number], [place] tel: [facility] [place] colon cancer screen (chief complaint) hypertensi on (chief complaint) pap test (chief complaint) mammogram (chief complaint) Encounter for screening for respiratory tuberculosisBod y mass index (BMI) 40.0-44.9, adultCervical cancer screeningOther screening mammogramColon cancer screeningBorder line systolic HTN 7 Osuji Nonyerem. [address], [place], [address], [place]. tel: [phone] [facility], [address], [place], [place], [id number], [place] tel: [facility] [place] No Information 7 [facility]. [address] [place], [address], [place]. tel: [phone] Consulting Provider: Shireen Vivar LVN. OFFICE/OUTPA TIENT VISIT, EST [facility], [address], [id number], tel: [facility] General follow up (chief complaint) hypertensi on (chief complaint) diabetes/t hyroid screen (chief complaint) mammogram (chief complaint) Body mass index (BMI) 38.0-38.9, adultBorderline systolic HTNScreening for diabetes mellitusScreeni ng for thyroid disorderOther screening mammogram 7 Osuji Nonyerem. [facility] [place], [facility], [place]. tel: [phone] PREV VISIT, EST, AGE 40-64 [facility], [facility] [place], [id number], tel: Osmin [place] No Information 6 Osuji Nonyerem. [facility] [place], [facility], . tel: [phone] OFFICE/OUTPA TIENT VISIT, EST [facility], [facility] [address], [place], [place], [id number], tel: [facility] Physical (chief complaint) preventive exam (chief complaint) rash (chief complaint) BP check (chief complaint) Body mass index (BMI) 40.0-44.9, adultEncounter for preventative adult health care exam with abnormal findingsScreeni ng for diabetes mellitusScreeni ng for thyroid disorderElevate d blood-pressure reading, without diagnosis of hypertensionPso riasis 6 Osuji Nonyerem. [facility] [place], [facility], [place]. tel: [phone] Family History Family Member Type Diagnosis Age At Onset No Information Payers Payer name Insurance type Covered alliance party ID Authoriza tion(s) SELF PAY Category C [id number] Social History Type Description Quantity Date Captured [...] to Body mass index (BMI) 40.0-44.9, adult CBE normal. mammogra m referral in October 2016 Related to Other screening mammogram pap smear today Related to Cervi pako cancer screening Dietary management e ducation, guidance, and counseling [...] to Body mass index (BMI) 38.0-38.9, adult DASH DIET/LOW SALT D IET encouraged. BP goal <140/<90. will start medication today.ELevated BP in 2016. Elevated BP today. start medication today Related to Borderline systolic HTN thyroid labs today Related to Sc reening for thyroid disorder A1c today Related to Robert matiasg for diabetes mellitus Dietary management e ducation, guidance, and counseling Related to Body mass index (BMI) 38.0-38.9, adult Giving encouragement to exercise Related to Body mass index (BMI) 38.0-38.9, adult DASH DIET/LOW SALT D IET encouraged. BP goal <140/<90. keep a BP log Related to Elevated blood-pressure reading, without diagnosis of hypertension clobetasol cream, use as directe d Related to Psoriasis thyroid labs today Related to Sc reening for thyroid disorder D and E; goal BMI<25 Counseled regarding importance of weight loss. Related to Body mass index (BMI) 40.0-44.9, adult A1c today... Related to Robert camacho for diabetes mellitus check labs and HIV t est today. aspirin daily encouraged. deferred. pap smear/mammogram next clinic visit Related to Encounter for preventative adult health care exam with abnormal findings Dietary management e ducation, guidance, and counseling Related to Body mass index (BMI) 40.0-44.9, adult Giving encouragement to exercise Related to Body mass index (BMI) 40.0-44.9, adult Assessments Type Assessment Date No Information
== END 2024-04-03 09:22 | disposition home or self-care (01) ==
LOC: HO.US 09:21
PROVIDERS: PCP Student in an Organized Health Care Education/Training Program; Visit Provider Internal Medicine Gastroenterology
DX: K74.60 Unspecified cirrhosis of liver (principal)
CPT/HCPCS: 76705

== ENCOUNTER 2024-05-20 09:32 | Outpatient (AMB) | payer OTHER, SELFPAY ==
--- NOTE | 2024-05-20 09:34 | A.OFFVIS_ITS ---
Vital Signs 05/20/24 09:40 Height 5 ft 2 in Weight 177 lb BMI 32.4 Intake Visit Reasons: Left knee pain Intake Note: Shireen is a 63 year old female who presents with complaints of left knee pain. She describes her pain as sharp in nature. She has tried Tylenol and anti- inflammatory medicines which gave her minimal relief. She has also done physical therapy exercises which aggravated her pain. She wishes to hold off on surgery if at all possible. 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 Allergies cornflower [Cornflower] Allergy (Unknown, Verified 05/20/24 09:40) ITCHY EYES/HIVES peach [PEACH] Allergy (Unknown, Verified 05/20/24 09:40) NATURAL FRUIT - MOUTH ITCHES cornell [cherries] Allergy (Verified 05/20/24 09:40) Unknown No Known Drug Allergies Allergy (Verified 05/20/24 09:40) none apples Allergy (Unknown, Uncoded 05/20/24 09:40) Unknown peanut Allergy (Unknown, Uncoded 05/20/24 09:40) Unknown Medication List - Last Reconciled 05/20/24 by Geo Tomlinson MD acamprosate 666 mg PO TID albuterol sulfate 90 mcg/actuation (ProAir HFA) 2 puffs PO Q6H PRN atorvastatin 40 mg PO BEDTIME blood pressure test kit-large As directed blood sugar diagnostic (FreeStyle Test strips) 4 times a day blood-glucose meter (FreeStyle Stayton Lite kit) As directed budesonide-formoterol 160-4.5 mcg/actuation (Symbicort) 2 puffs PO calcium carbonate (Oyster Shell Calcium) 500 mg PO BID canagliflozin (Invokana) 300 mg PO QAM cetirizine 10 mg PO DAILY cholecalciferol (vitamin D3) 125 mcg PO QAM fenofibrate micronized 134 mg PO DAILY ferrous sulfate (FeroSul) 325 mg PO 3XW flash glucose scanning reader (CEED TechStyle Lakeisha 2 [place]) As directed flash glucose sensor (FreeStyle Lakeisha 2 Sensor kit) every 14 days folic acid 1 mg PO QAM gabapentin 100 mg PO BEDTIME insulin regular hum U-500 conc (Humulin R U-500 (Conc) Insulin Kwikpen) 250 units before breakfast ; 30 days lancets (FreeStyle Lancets) As directed lancets (TRUEplus Lancets) As directed linaclotide (Linzess) 145 mcg PO DAILY 90 days losartan 25 mg PO QAM mirabegron ER (Myrbetriq) 25 mg PO QAM nebulizers As directed nystatin-triamcinolone 100,000-0.1 unit/g-% 1 appl topical DAILY Oxygen Home Use As directed pantoprazole 20 mg PO DAILY pen needle, diabetic (BD Ultra-Fine Debbie Pen Needle) As directed once a day sertraline (Zoloft) 50 mg PO DAILY thiamine HCl (vitamin B1) 100 mg PO QAM trazodone 100 mg PO BEDTIME PRN PFSH Medical History CAD (coronary artery disease) Dyspnea Asthma-COPD overlap syndrome Alcohol use History of methadone use Personal history of nicotine dependence Asthma Obesity (BMI 30-39.9) GERD (gastroesophageal reflux disease) Cirrhosis Vitamin D deficiency Hypertension Dyslipidemia Non-toxic multinodular goiter Osteoporosis Diabetic 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 with type 2 diabetes 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 Diabetes type 2, uncontrolled Surgical History Status post biopsy of thyroid gland History of colonoscopy (~2016) Hx of cataract extraction History of esophagogastroduodenoscopy (EGD) (~2020) Hx of cardiac cath (~12/2015) Hx of cholecystectomy (~1980) History of bladder surgery (~06/2019) Family History Father Esophageal cancer Mother Diabetes mellitus HTN (hypertension) Social History Household Members: Spouse Alcohol intake: current Alcohol intake frequency: 3 or more drinks per day Alcohol type: beer Patient Tobacco Use Status: Former Tobacco user Tobacco use type: Cigarette Years Smoked: Onset 27, 2ppd x 24yrs, 48pyh, quit 11/2012 Advance Directives Date on File: 11/18/15 Physical Exam Vital Signs: BMI result Body Mass Index 32.4 Const Other: Well-nourished well-developed very friendly female awake alert and oriented x3 in no acute distress Extrem Other: Left knee examination shows a minimal effusion, palpable crepitus with range of motion, pain with range of motion, no instability Office Procedures AMB Joint Injection/Aspiration Joint Injection/Aspiration Primary Site: left knee Prep: site was prepped using aseptic technique Injected: 40 mg of, DepoMedrol and 1% plain lidocaine Procedure: The patient tolerated the procedure well Coding - Large joint Procedure code (CPT) selection complete Results Reviewed Results Reviewed: X-rays of the patient's left knee taken previously show joint space narrowing, subchondral sclerosis, no acute bony abnormalities Assessment & Plan Assessment & Plan (1) Arthritis of left knee: Code(s): M17.12 - Unilateral primary osteoarthritis, left knee Category: Medical (2) Left knee pain: Code(s): M25.562 - Pain in left knee Plan Ms. Tavarez presents with left knee pain due to degenerative joint disease. The risks and benefits of a left knee cortisone injection were discussed at length with the patient. The patient wished to proceed. She tolerated the injection well. She will continue with her home exercise program. She will contact me prior to her follow-up appointment in 3 months should any questions or concerns arise. Feel free to call me at any time should questions regarding her orthopedic management arise. I spent 20 minutes in reviewing the patient's records and imaging studies, seeing the patient and documenting in the medical record. Orders: Orders AMB Joint Injection/Aspiration Today M17.12 - Unilateral primary osteoarthritis, left knee Coding Level of Care Code Est Pt Level 3 (65029) Complex EM visit Add On G2211 Diagnoses Arthritis of left knee M17.12 Left knee pain M25.562 CPT Codes Coding - Large joint: 61960 - Large joint ([id number])
[2024-05-20 09:40] VITALS: BMI 32.4
--- OUTSIDE RECORDS SUMMARY | 2024-05-20 10:38 | XMS_ITS | Encounter Summary ---
Author Organization [employer] Address [address] [place] [address] Care Team Providers Care Staffing Program Manager Name Role Phone Shireen Stout MD Primary Care Pro vider Reason for Visit * Reason Comments Med Refill Encounter Details Date Type Department Care Team ([facility] st Contact Info) Description 01/16/2023 Refill [facility] CHC MED & PEDS [address] [place], [place] [phone] Shireen Stout MD [address] [place] [address] Social History Tobacco Use Types Packs/Day Years Used Date Smoking Tobacco: Former Cigarettes Passive Smoke Exposure: Never Smokeless Tobacco: Never Comments:Started smoking 27 y of age and stopped at her 51 ,stopped 10 y ago,smoked for 24 years --2 PQT a day 46 Alcohol Use Standard Drinks/Week Comments Yes 0 (1 standard drink = 0.6 oz pure alcohol) now 6 cans a day of beer--hx of hard liquor use stopped years ago Depression Answer Date Recorded Patient Health Questionnaire-9 Score 5 12/15/2022 Housing Stability Answer Date Recorded What is your housing situation today? I have maureen modi 01/15/[address] you li ve. Do you have problems with any of the following? None of the above 01/15/2023 Food Insecurity Answer Date Recorded Within the past 12 months, y ou worried that your food would run out before you got money to buy more: Never True 01/15/2023 Within the past 12 months,th e food you bought just didn't last and you didn't have enough money to get more: Never True 12/2022 Transportation Answer Date Recorded In the past 12 months, has l ack of transportation kept you from medical appts, meetings, work or from getting things needed for daily living? No 01/15/2023 Utilities Answer Date Recorded In the past 12 months, has t he electric, gas, oil or water company threatened to shut off services in your home? No 01/15/2023 Depression Answer Date Recorded Patient Health Questionnaire-2 Score 2 12/15/2022 Comments Unknown Sex and Gender Information Value Date Recorded Sex Assigned at Female 02/06/2022 10:14 AM EDT Legal Sex Female 10:14 AM EDT Gender Identity Female 10/25/2022 10:59 AM EDT Sexual Orientation Straight 10/25/2022 10 :59 AM EDT documented as of this encounter Plan of Treatment Upcoming Encounters Date Type Department Care Team (Late st Contact Info) Description 06/06/2024 1:30 PM EST Office Visit [facility] MEDICINE [address] [place] [address] [phone] Terrence Avila MD [address] [place] [phone] documented as of this encounter Visit Diagnoses Not on filedocumented in this encounter Additional Health Concerns Assessment Noted Time PHQ-9 Depression Total Score: 5 12/16/19 23 2:02 PM EDT documented as of this encounter Care Teams Staffing Program Manager Relationship Specialty Start Date End Date Shireen Stout MD [address] [place] [phone] PCP - General Internal Medicine 09/08/22 documented as of this encounter
--- OUTSIDE RECORDS SUMMARY | 2024-05-20 10:38 | XMS_ITS | Encounter Summary ---
Author Organization [employer] Address [address] [place] [address] Care Team Providers Care Inspector Automatic Typewriter Name Role Phone Shireen Stout MD Primary Care Pro vider Reason for Visit * Reason Comments Med Refill Encounter Details Date Type Department Care Team ([facility] st Contact Info) Description 01/16/2023 Refill [facility] CHC MED & PEDS [address] [place], [place] [phone] Shireen Stout MD [address] [place] [address] Social History Tobacco Use Types Packs/Day Years [...] Description 06/06/2024 1:30 PM EST Office Visit [facility] MEDICINE [address] [place] [address] [phone] Terrence Avila MD [address] [place] [phone] documented as of this encounter Visit Diagnoses Not on filedocumented in this encounter Additional Health Concerns Assessment Noted Time PHQ-9 Depression Total Score: 5 12/16/19 23 2:02 PM EDT documented as of this encounter Care Teams Inspector Automatic Typewriter Relationship Specialty Start Date End Date Shireen Stout MD [address] [place] [phone] PCP - General Internal Medicine 09/08/22 documented as of this encounter
--- OUTSIDE RECORDS SUMMARY | 2024-05-20 10:38 | XMS_ITS | Encounter Summary ---
Author Organization [employer] Address [address] [place] [address] [address] [place] [address] Care Team Providers Care Veterinary Assistant Name Role Phone Shireen Stout MD Primary Care Pro vider Reason for Visit * Reason Comments Med Refill Encounter Details Date Type Department Care Team ([facility] st Contact Info) Description 01/16/2023 Refill [facility] MEDICINE [address] [place] [address] Tonja Guzmán FNP [address] [place] [address] Dept [place] [address] Social History Tobacco Use Types Packs/Day Years [...] is your housing situation today? I have maureenkylee modi 01/15/[address] you [...] Description 06/06/2024 1:30 PM EST Office Visit [facility] MEDICINE [address] [place] [phone] Terrence Avila MD [address] [place] [phone] documented as of this encounter Visit Diagnoses Not on filedocumented in this encounter Additional Health Concerns Assessment Noted Time PHQ-9 Depression Total Score: 5 12/16/19 2:02 PM EDT documented as of this encounter Care Teams Veterinary Assistant Relationship Specialty Start Date End Date Shireen Stout MD [address] [place] [address] [phone] PCP - General Internal Medicine 09/08/22 documented as of this encounter
--- OUTSIDE RECORDS SUMMARY | 2024-05-20 10:38 | XMS_ITS | Encounter Summary ---
Author Organization [employer] [facility] Address [address] [place] [address] [address] [place] [address] Care Team Providers Care Flask Pusher Name Role Phone Shireen Stout MD Primary Care Pro vider Reason for Visit * Reason Comments Med Refill Encounter Details Date Type Department Care Team ([facility] st Contact Info) Description 01/10/2023 Refill [facility] MEDICINE [address] [place] [address] Tonja Guzmán FNP [address] [place] [address] Dept [place] [address] Pulmonary emphysema, unspecified emphysema type (CMS/HCC) Social History Tobacco Use Types Packs/Day Years [...] Recorded Patient Health Questionnaire-9 Score 5 12/15/2022 Depression Answer Date Recorded Patient Health Questionnaire-2 [...] Description 06/06/2024 1:30 PM EST Office Visit [facility] MEDICINE [address] [place], [place] [phone] Terrence Avila MD [address] [place], [place] [phone] documented as of this encounter Visit Diagnoses Diagnosis Pulmonary emphysema, unspecified emphysema type (CMS/HCC) documented in this encounter Additional Health Concerns Assessment Noted Time PHQ-9 Depression Total Score: 5 12/16/19 23 2:02 PM EDT documented as of this encounter Care Teams Flask Pusher Relationship Specialty Start Date End Date Shireen Stout MD [address] [place] [address] [phone] PCP - General Internal Medicine 09/08/22 documented as of this encounter
--- OUTSIDE RECORDS SUMMARY | 2024-05-20 10:38 | XMS_ITS | Clinical Summary ---
Author Organization [facility] Address [address] [place] [address] [address] [place] [address] Care Team Providers Care Caponizer Name Role Phone Shireen Stout MD Primary Care Pro vider Allergies Active Allergy Reactions Criticality Noted Date Comments Jimmy Inhibitors 03/21/2010 Apple Juice 11/27/2011 Other reaction(s): Cough, scratchy throat Romero 01/05/2021 Peanut Butter Flavoring Agent (Non-Screening) Hives,Swelling 11/27/2011 Other reaction(s): Trouble Breathing, itchy throat Prunus Persica 01/05/2021 Medications alendronate (Fosamax) 70 MG tablet Take 1 tablet by mouth once a week. Active glucose blood (FREESTYLE LITE) test strip Check by fingerstick route 1-2 times daily Active insulin regular (HumuLIN R U-500 KWIKPEN) 500 UNIT/ML CONCENTRATED injection inject 120 units subcutaneously before breakfast & 62 units before dinner Active ketotifen (Zaditor) 0.025 % ophthalmic solution Instill 1 drop in each eye twice daily Active TRUEplus Lancets 33G misc Test blood sugar twice daily as directed Active insulin pen needle (BD Pen Needle Debbie U/F) 32G x 4 mm misc USE TWICE DAILY TO INJECT INSULIN Active docusate sodium (Colace) 100 MG capsule Take 100 mg by mouth if needed in the morning and at bedtime for constipation. Active canagliflozin (Invokana) 300 MG Take 300 mg by mouth. 019 Active Myrbetriq 25 MG 24 hr tablet TAKE 1 TABLET BY MOUTH EVERY MORNING DO NOT BREAK, CRUSH, DISSOLVE OR CHEW Active EPINEPHrine (Epipen) 0.3 MG/0.3ML injection syringe Inject 0.3 mL (0.3 mg) as directed 1 (one) time if needed for anaphylaxis for up to 1 dose. Inject into upper leg. Call 911 after use. 1 each 023 Active Reguloid 28.3 % powder TAKE 1 TABLESPOONFUL IN FULL GLASS OF WATER ONCE DAILY NEEDED FOR CONSTIPATION 1107 g 2 023 Active ammonium lactate (Amlactin) 12 % creamIndications: Thyroid nodule,Keratosis pilaris Apply topically every 12 (twelve) hours. 140 g 11 023 Active clobetasol (Temovate) 0.05 % ointment APPLY TO THE AFFECTED AREA(S) TWICE DAILY 30 g 024 Active albuterol 108 (90 Base) MCG/ACT inhalerIndication s:Seasonal allergic rhinitis, unspecified trigger Inhale 2 puffs every 6 (six) hours if needed for wheezing. 18 g 2 024 Active Linzess 145 MCG capsule Take 145 mcg by mouth in the morning. Active budesonide-formot suma (Symbicort) 160-4.5 MCG/ACT inhaler Inhale 2 puffs in the morning and at bedtime. Rinse mouth with water after use to reduce aftertaste and incidence of candidiasis. Do not swallow. Active ferrous sulfate (FeroSul) 325 (65 Fe) MG tablet Take 1 tablet (325 mg) by mouth 3 (three) times a week. 90 tablet Active sodium chloride (Pinson Nasal Bode) 0.65 % nasal spray Administer 1 spray into each nostril if needed for congestion. 30 mL 2 024 2024 Active naltrexone (Depade) 50 MG tabletIndications :Alcohol use disorder, severe, dependence (CMS/HCC) Take 1 tablet (50 mg) by mouth Once per day. Please add to her blister packs 90 tablet 3 024 2024 Active Oyster Shell Calcium 500 MG tablet TAKE 1 TABLET BY MOUTH TWICE DAILY IN THE MORNING AND IN THE EVENING WITH MEALS 180 tablet 2 Active clotrimazole (Lotrimin) 1 % vaginal creamIndications: Vulvovaginal Candidiasis Insert one applicator per vagina at bedtime for 7 nights 45 g 024 Active cetirizine (ZyrTEC) 10 MG tabletIndications :Seasonal allergic rhinitis, unspecified trigger TAKE 1 TABLET BY MOUTH EVERY MORNING 90 tablet 1 024 Active ergocalciferol (Vitamin D2) 1.25 MG (96389 UT) capsule Take 1 capsule (1.25 mg) by mouth 1 (one) time per week. 4 capsule 5 024 Active Diclofenac Sodium 1 % gel Apply 1 Application topically if needed each day (pain in legs). 50 g 024 Active losartan (Cozaar) 25 MG tablet TAKE 1 TABLET BY MOUTH EVERY MORNING 90 tablet 1 024 Active pantoprazole (ProtoNix) 20 MG EC tabletIndications :Dysphagia, unspecified type TAKE 1 TABLET BY MOUTH TWICE DAILY IN THE MORNING AND IN THE EVENING 180 tablet 1 024 Active sertraline (Zoloft) 50 MG tablet TAKE 1 TABLET BY MOUTH EVERY MORNING 30 tablet 5 024 Active traZODone (Desyrel) 100 MG tabletIndications :Depressive disorder TAKE 2 TABLETS BY MOUTH EVERY DAY AT BEDTIME 60 tablet 5 024 Active gabapentin (Neurontin) 100 MG capsuleIndication s:Diabetic peripheral neuropathy associated with type 2 diabetes mellitus (CMS/HCC) TAKE 2 CAPSULES BY MOUTH TWICE DAILY IN THE MORNING AND EVENING 120 capsule 024 Active atorvastatin (Lipitor) 40 MG tablet TAKE 1 TABLET BY MOUTH AT BEDTIME 90 tablet 1 025 Active thiamine (Vitamin B-1) 100 MG tablet TAKE 1 TABLET BY MOUTH EVERY MORNING 90 tablet 025 Active folic acid (Folvite) 1 MG tablet TAKE 1 TABLET BY MOUTH EVERY MORNING 90 tablet 025 Active fenofibrate micronized (Lofibra) 134 MG capsuleIndication s:Mixed hyperlipidemia TAKE 1 CAPSULE BY MOUTH EVERY EVENING 90 capsule 1 025 Active fenofibrate micronized (LoFibra) 134 MG capsuleIndication s:Mixed hyperlipidemia TAKE 1 CAPSULE BY MOUTH EVERY EVENING 90 capsule 1 024 2024 Discontinued Active Problems Problem Noted Date Diagnosed Date Alcoholic fibrosis and sclerosis of liver 11/27/ 2024 Vitamin D deficiency 03/05/2024 Skin lesions 03/05/2024 Acute vaginitis 11/01/2023 Type 2 diabetes mellitus wit h hyperglycemia, without long-term current use of insulin 08/01/2023 Anemia 11/22/2022 Assessment & Plan (11/22/2022 8:01 PM EDT): 10/2022 Hb 10, Htco 34.8. MCV 84.1 Vit B 12 ,folare, TSH are all wnl Denies melenas,BRPR,hematuria nor vaginal bleeding Possible dyspnea can be associated w anemia -repeat today CBC and iron panel, LDH and haptoglobin -will call pt if need to start iron -referred already to GI -if neg for iron anemia will need to consider hematology refereral Health care maintenance 10/25/2022 Assessment & Plan (11/22/2022 8:02 PM EDT): -Quantiferon 10/2022 Neg -menopause: 45 years -pap smear > 5 y per pt neg--referred today again to J. R -MM 05/2022 : BIRADS 2 to repeat in 1 year -colonoscopy 2017: hyperplastic colonic mucosa per pt told to repeat in 10 y -DEXA 2019: Osteoporosis based on the lowest T-score value of -2.7-on tx already -vaccines: hepAx2,hepBx3-Immune , Covid 12t0-Jixdqsto 10/2022, [id number]-e/p 20 x1, tdap 2022 ,s/p zoster vaccinex2 Assessment & Plan (10/25/2022 1:36 PM EDT): -menopause: 45 years -pap smear > 5 y per pt neg--referred today to J. R -MM 2018: BIRADS 1--referred today -colonoscopy 2017: hyperplastic colonic mucosa per pt told to repeat in 10 y -referred today to GI -DEXA 2019: Osteoporosis based on the lowest T-score value of -2.7-on tx already -vaccines: hepAx2,hepBx3,covid 00i6-Cgvqzsum today, f88x1-b/p 20 x1, tdap 2011- today booster,s/p zoster vaccinex2 -labs x annual exam today -pt agreed to have STI testing including HIV to have for baseline Left leg pain 10/25/2022 Assessment & Plan (11/22/2022 7:46 PM EDT): Pt w chronic lower left leg pain and erythema Seen by Dr Adame -last in 04/2022 w reported ovreall normal examination and testing not concern for lesion to be associated w vascular etiology and rec for market news reporter referral -pt was tx already w keflex 500 BID x 5 days at last apt w no change in rash -advised pt to raise leg -referred to market news reporter -pt using fungal cream chronically px by vascular Assessment & Plan (10/25/2022 1:41 PM EDT): Pt w chronic lower left leg pain and erythema -possible vascular in nature ? -I called today her vascular Dr Adame # [phone]-gnk staff pt was last seen in 04/2022 And reports had normal vascular exam -given symptoms are more recently referred back to vascular for revaluation -unlikely cellulitis but will tx w keflex 500 BID x 5 days -advised pt to raise leg Left knee pain 10/25/2022 Assessment & Plan (11/22/2022 7:47 PM EDT): -pt w ongoing left knee pain -referred x knee XR-not done yet-order printed again today -request nurse staff to start process x RW-pt reports problem of instability and falls before x knee pain -already ordered -requested today nurse staff to check status of prescription Assessment & Plan (10/25/2022 1:42 PM EDT): -pt w ongoing left knee pain -referred today x knee XR -request nurse staff to start process x RW-pt reports problem of instability and falls before x knee pain Food allergy, peanut 10/25/2022 Assessment & Plan (11/22/2022 7:58 PM EDT): Hx of documented food allergy -px epipen already Assessment & Plan (10/25/2022 1:47 PM EDT): Hx of documented food allergy -px epipen Dysphagia 03/17/2022 Alcohol use disorder, severe, dependence 022 Assessment & Plan (11/22/2022 7:55 PM EDT): Now 3 from 6 cans a day of beer--hx of hard liquor use stopped years ago -on acamprosate -already has apt w CRS team for alcohol abuse problem for 12/15/2022 Assessment & Plan (10/25/2022 1:26 PM EDT): now 6 cans a day of beer--hx of hard liquor use stopped years ago -as in cirrhosis problem Osteoporosis 06/05/2021 Assessment & Plan (11/22/2022 7:44 PM EDT): -DEXA 2019: Osteoporosis based on the lowest T-score value of -2.7 -pt on alendronate weekly-started on 01/2019 ( Confirmed today w her px) and daily Vit D 1999 -vit D 10/2022 34-Stopped taking for some time -pt will check w her nursing clinical director if had recently any DEXA scan otherwise will refer at next apt -resume vit D daily and start ca BID -continue alendronate weekly with plan to continue until 01/2024 And will repeat vit D level in 3 to 6 mo Assessment & Plan (10/25/2022 1:11 PM EDT): -DEXA 2019: Osteoporosis based on the lowest T-score value of -2.7 -pt on alendronate weekly and daily Vit D 1999 -will check w her nursing clinical director if had recently any DEXA scan otherwise will refer at next apt -will check w pt x how long is taking alendronate -check vit D -continue alendronate weekly and daily vit D Non-toxic multinodular goiter 06/05/2021 Assessment & Plan (11/22/2022 7:48 PM EDT): -thyroid US 2019: Small right lobe. Previously identified small right thyroid nodule is not appreciated. Enlarged left lobe. No appreciable change in the solitary, large, heterogeneous left thyroid nodule. -pt f w nursing clinical director-advised pt to continue care w specialist ,pt will discuss tomorrow w specialist if had recently another US or if plan to repeat Assessment & Plan (10/25/2022 1:17 PM EDT): -thyroid US 2019: Small right lobe. Previously identified small right thyroid nodule is not appreciated. Enlarged left lobe. No appreciable change in the solitary, large, heterogeneous left thyroid nodule. -pt f w nursing clinical director-advised pt to continue care w specialist ,request today call back from endo -will discuss if another thyroid US has been done-if not done will refer at next apt Stage 2 chronic kidney disease 12/04/2019 Diabetic peripheral neuropat hy associated with type 2 diabetes mellitus 07/01/2015 Assessment & Plan (11/22/2022 7:42 PM EDT): Pt w DM2 -insulin dependent w neuropathy Pt is on rapid insulin 220 u in am only and invokana 10/2022 hb1AC is 7.9<---8.9-elevated Gl at 259 .microalb neg , LDL 66 -unsure why pt is not on basal insulin? --I called to her nursing clinical director-Dr Diamond at # [phone] at previous visit to discuss case. I left my cell phone x a call back but not received a call .,From last endo note -pt was seen in 08/16/2022 and it was mentioned of 220 u in am but dont see recs for insulin at any other time of the day ,there is mention of nocturnal hypoglycemia ,also is note pt was offered insulin pump but pt refused. -pt has f up apt w nursing clinical director tomorrow and advised to discuss about basal insulin ? - finisher card tender 11/2022 mild non proliferative diabetic retinopathy to f in 6 mo -referred to scientific specialist today Assessment & Plan (10/25/2022 1:12 PM EDT): Pt w DM2 -insulin dependent w neuropathy Pt is on rapid insulin 220 u in am only and invokana -today hb1AC is 8.9-elevated CBG at 392--> rechecked was 302 -unsure why pt is not on basal insulin? --I called today her nursing clinical director-Dr Diamond at # [phone] to discuss case. I left my cell phone x a call back ,from last endo note -pt was seen in 08/16/2022 and it was mentioned of 220 u in am but dont see recs for insulin at any other time of the day ,there is mention of nocturnal hypoglycemia ,also is note pt was offered insulin pump but pt refused. -advised pt to get at least 10 u w lunch -pt will get home and inj 10 u with her upcoming meal -will await call from her nursing clinical director to discuss plan of care and advised pt to call her specialist at to schedule apt for uncontrolled DM ,likely associated w her ongoing alcohol intake. -also was referred to DM educational by her nursing clinical director -referred today to finisher card tender -will refer to scientific specialist at next apt -DM labs Essential hypertension 07/01/2015 Assessment & Plan (11/22/2022 7:42 PM EDT): BP is controlled on ARBs -echo 2016 : EF between 55-60 %.Normal -nuclear stress test 2016: without EKG changes meeting criteria for ischemia. -cardiac cath 2016: non obstructive CAD -EKG today : NSR, TWI in V2 only ,slight ventricular conduction delay ,repolarization disturbance.QTC 466, HR 74x' 10/2022 Microalb neg - finisher card tender 11/2022 Mild non proliferative diabetic retinopathy to f up in 6 mo -continue BP meds Assessment & Plan (10/25/2022 5:54 PM EDT): BP is controlled on ARBs -echo 2016 : EF between 55-60 %.Normal -nuclear stress test 2016: without EKG changes meeting criteria for ischemia. -cardiac cath 2016: non obstructive CAD -referred to finisher card tender -microalb -will check EKG at next apt due to risk factors Pulmonary emphysema 07/01/2015 Assessment & Plan (11/22/2022 7:39 PM EDT): Pt w hx of Asthma vs COPD or overlap syndrome -pt on ANNETTE prn using Frequantly and Symbicort 160-4.5 BID -will start trellegy and stop symbicort -Continue ANNETTE prn , pt request px for NBZ machine that is not working properly her old one-request today to nurse staff to order new one -referred back to her resources representative to continue care-has apt on 12/2022 Assessment & Plan (10/25/2022 1:43 PM EDT): Pt w hx of Asthma vs COPD or overlap syndrome -pt on ANNETTE prn using twice a week and Symbicort 160-4.5--pt using only 2 puff daily instead of BID -advised pt to use symbicort BID And will monitor at next apt if still not controlled would consider to start trelegy -referred back to her resources representative to continue care -request ALFRED ANDERSON to try to get last pulm visit note Alcoholic cirrhosis 03/25/2015 Assessment & Plan (11/22/2022 8:04 PM EDT): -MRA (MR ANGIOGRAPHY) 2018: No evidence of hemodynamically significant renal artery stenosis. -CT ABDOMEN WITH CONTRAST 2019: LUNG BASES: There is improved aeration at the lung bases compared to September [address] scan. There is a 4 mm left lower lobe nodule axial image 37. There is a 4 x 6 mm peripheral or subpleural left lower lobe nodule adjacent to the diaphragm axial image 57 series 3. These are difficult to see on most recent chest CT from 2019 however can be seen on older chest CT scans, for example April 2015 and do not appear changed.LIVER, GALLBLADDER, AND BILIARY TREE: The liver is low in attenuation suggestive of fatty infiltration. The liver is slightly enlarged. The gallbladder has been removed. There is no biliary duct dilatation. PANCREAS: The pancreas appears atrophic. SPLEEN: The spleen is normal in size. There are 3 low-attenuation lesions in the spleen, largest measuring 1 cm. These do not represent cysts. ADRENAL GLANDS AND KIDNEYS: Unremarkable. BOWEL LOOPS: Visualized small and large bowel is unremarkable. The stomach is unremarkable.LYMPH NODES: There are no enlarged lymph nodes. There is no ascites. VASCULAR: Unremarkable. BONES: There are healing left anterior 6th and 7th rib fractures. IMPRESSION:Fatty liver. 3 low-attenuation splenic lesions that do not appear to represent cysts. These are increased in size or new from old chest CT October 2006. These aren't not appreciated on previous MRA November 2017. Splenic hemangiomas and infectious, inflammatory and neoplastic processes should be considered. Stable small left lower lobe pulmonary nodules. Healing left anterior rib fractures. -Abd US 2019: The liver is enlarged with increased echogenicity suggestive of hepatic steatosis. No focal lesion seen.Mild splenomegaly.The gallbladder has been surgically removed. -abd US elastography 2020-from GI records: mild fibrosis F2-F3 -EGD 2011: hemorrhagic gastritis ,no esophageal varices -US COMPLETE ABDOMEN WITH LIVER ELASTOGRAPHY 11/2022 Mild hepatic steatosis without focal lesion. S/p cholecystectomy. No CBD ductal dilatation. The spleen is enlarged. There are several echogenic lesions in the spleen most likely small hemangiomas. The largest hemangioma measures 1.3 x 1.6 x 1.6 cm. The spleen measures 13.3 cm in maximum dimension. Median liver stiffness measures 1.25 m/s corresponding to high probability normal. Liver elastography: Median liver stiffness measures 1.25 m/is corresponding to high probability normal. 10/2022 INR,PTT and PT as well albumin and platelets are wnl ,AST 41 and ALT 26 -pt referred already to GI -gave info today for pt to call for apt --advised pt to discuss about possible cirrhosis not reported in fibroscan but with enlarged spleen and per chart w hx of it. Also to discuss w GI about splenic hemangioma - possibly will need surveillance with image f up -gave today to pt copy of abd US report -pt on acamprosate ,reports decrease alcohol intake of beers but still drinking aprox3 from 6 cans a day last month -discussed in length importance to decrease alcohol consumption Assessment & Plan (10/25/2022 1:45 PM EDT): -MRA (MR ANGIOGRAPHY) 2018: No evidence of hemodynamically significant renal artery stenosis. -CT ABDOMEN WITH CONTRAST 2019: LUNG BASES: There is improved aeration at the lung bases compared to September [address] scan. There is a 4 mm left lower lobe nodule axial image 37. There is a 4 x 6 mm peripheral or subpleural left lower lobe nodule adjacent to the diaphragm axial image 57 series 3. These are difficult to see on most recent chest CT from 2019 however can be seen on older chest CT scans, for example April 2015 and do not appear changed.LIVER, GALLBLADDER, AND BILIARY TREE: The liver is low in attenuation suggestive of fatty infiltration. The liver is slightly enlarged. The gallbladder has been removed. There is no biliary duct dilatation. PANCREAS: The pancreas appears atrophic. SPLEEN: The spleen is normal in size. There are 3 low-attenuation lesions in the spleen, largest measuring 1 cm. These do not represent cysts. ADRENAL GLANDS AND KIDNEYS: Unremarkable. BOWEL LOOPS: Visualized small and large bowel is unremarkable. The stomach is unremarkable.LYMPH NODES: There are no enlarged lymph nodes. There is no ascites. VASCULAR: Unremarkable. BONES: There are healing left anterior 6th and 7th rib fractures. IMPRESSION:Fatty liver. 3 low-attenuation splenic lesions that do not appear to represent cysts. These are increased in size or new from old chest CT October 2006. These aren't not appreciated on previous MRA November 2017. Splenic hemangiomas and infectious, inflammatory and neoplastic processes should be considered. Stable small left lower lobe pulmonary nodules. Healing left anterior rib fractures. -Abd US 2019: The liver is enlarged with increased echogenicity suggestive of hepatic steatosis. No focal lesion seen.Mild splenomegaly.The gallbladder has been surgically removed. -abd US elastography 2020-from GI records: mild fibrosis F2-F3 -EGD 2011: hemorrhagic gastritis ,no esophageal varices -pt on acamprosate ,reports decrease alcohol intake of beers but still drinking aprox 6 cans a day -discussed in length importance to decrease alcohol consumption -pt agreed to be referred x CRS team--Send Chart today -referred today to GI for cirrhosis management -referred today x abd US w elastography -will do labs including coag time Allergic rhinitis 03/25/2015 Constipation 03/25/2015 Assessment & Plan (11/22/2022 7:42 PM EDT): On colace prn -advised healthy diet -f w GI,colonoscopy in 2016 w no major abnormalities Assessment & Plan (10/25/2022 1:08 PM EDT): On colace prn -advised healthy diet -f w GI,colonoscopy in 2016 w no major abnormalities Depressive disorder 03/25/2015 Assessment & Plan (11/22/2022 7:54 PM EDT): Pt w hx of depression. PHQ9 is 5 ,denies SI and denies feeling sad now but more concern w lack of interest and insomnia -pt on sertraline 50 mg daily and trazodone 200 mg HS -offered BH referral but refusing -will continue to monitor Assessment & Plan (10/25/2022 1:26 PM EDT): Pt w hx of depression. PHQ9 is 5 ,denies SI and denies feeling sad now but more concern w lack of interest and insomnia -pt on sertraline 50 mg daily and trazodone 200 mg HS -offered BH referral but refusing -will continue to monitor Mixed hyperlipidemia 03/25/2015 Moderate persistent asthma 03/25/2015 Obesity 03/25/2015 Assessment & Plan (11/22/2022 7:47 PM EDT): Advised pt to improve diet and exercise,discussed healthy life style -discussed supervisor park workers referral --referred already has apt for next month Assessment & Plan (10/25/2022 1:12 PM EDT): Advised pt to improve diet and exercise,discussed healthy life style -discussed supervisor park workers referral --referred today Smoker 03/25/2015 Assessment & Plan (11/22/2022 7:56 PM EDT): Started smoking 27 y of age and stopped at her 51 ,stopped 10 y ago,smoked for 24 years --2 PQT a day- [place] PQT year is 46 -CT chest w/o contrast 2019: The lung volumes are low. There is significant bibasilar subsegmental atelectasis. There is a 3 mm peripheral or subpleural right middle lobe nodule adjacent to the minor fissure axial image 229 series 23 probably representing a subpleural lymph node. There is heterogeneous attenuation to the lungs questionable for hypoventilatory changes or air trapping. -requested to [place] to obtain last CT chest done per pt > 1 y ago -not able to obtain -referred to lung ca screening program to continue screening --per pt has apt scheduled x next month Assessment & Plan (10/25/2022 1:31 PM EDT): Started smoking 27 y of age and stopped at her 51 ,stopped 10 y ago,smoked for 24 years --2 PQT a day- Sha[place]ille PQT year is 46 -CT chest w/o contrast 2019: The lung volumes are low. There is significant bibasilar subsegmental atelectasis. There is a 3 mm peripheral or subpleural right middle lobe nodule adjacent to the minor fissure axial image 229 series 23 probably representing a subpleural lymph node. There is heterogeneous attenuation to the lungs questionable for hypoventilatory changes or air trapping. -requested to [place] to obtain last CT chest done per pt > 1 y ago -referred today to lung ca screening program to continue screening Resolved Problems Problem Noted Date Diagnosed Date Resolved Date Lower extremity edema 11/01/20232023 Skin lesion 01/23/2023 03/05/2024 Thyroid nodule 12/02/2021 10/25/2022 Type 2 diabetes mellitus 03/25/2015 Assessment & Plan (10/25/2022 12:36 PM EDT): [facility] endo 08/16/22 Daytime hyperglycemia with overnight hypoglycemia Patient reports she is taking Humulin U 500,220 units in the morning. Her prescription also reads to take 40 units pre lunch but she does eat lunch so she skips that dose. Her last meal of the day is later in the evening between 8 and 21:00, however she will not take insulin before that meal due to overnight hypoglycemia. Had a lengthy discussion about the affects of alcohol on glucose levels. Patient is still drinking approximately 4-5 alcoholic beverages daily. At this visit we discussed how the alcohol can interfere with her ability to get better control over glucose levels. Strongly encouraged patient at this visit to discuss with her primary care or social problems specialist on getting treatment for alcohol dependence. We discussed using insulin pump, as referenced in nursing clinical director note but this time patient does not feel that she can manage an insulin pump independently. Reviewed with patient how to treat hypoglycemia, hypoglycemic handout in [place] given to patient Encounters Date Type Department Care Team Description 05/12/2024 Refill [facility] [address] [place] [address] Shireen Stout MD Mixed hyperlipidemia 04/17/2024 Refill [facility] MEDIC[facility] [address] [place] [address] Shireen Navarro MD 04/10/2024 Refill [facility] [address] [place] [address] Shireen Stout MD 04/03/2024 Orders Only [facility] External Provider, [facility] 03/28/2024 Refill [facility] [address] [place] [address] Shireen Stout MD Diabetic peripheral neuropathy associated with type 2 diabetes mellitus (CMS/HCC) 03/17/2024 10:30 AM EST Procedure Visit [facility] [address] [place] [address] Wu Arroyo CNM Visit for pelvic exam (Primary Dx) 03/17/2024 Travel 03/13/2024 Refill [facility] [address] [place] [address] Shireen Stout MD Dysphagia, unspecified type; Depressive disorder 03/05/2024 9:00 AM EST Office Visit [facility] [address] [place] [address] Shireen Stout MD Smoker (Primary Dx); Type 2 diabetes mellitus with hyperglycemia, without long-term current use of insulin ([facility]/HCC); Encounter for immunization; Health care maintenance; Alcoholic cirrhosis, unspecified whether ascites present ([facility]/HCC); Alcohol use disorder, severe, dependence ([facility]/HCC); Class 1 obesity due to excess calories with serious comorbidity and body mass index (BMI) of 33.0 to 33.9 in adult; Non-toxic multinodular goiter; Osteoporosis, unspecified osteoporosis type, unspecified pathological fracture presence; Essential hypertension; Diabetic peripheral neuropathy associated with type 2 diabetes mellitus (CMS/HCC); Alcoholic fibrosis and sclerosis of liver; Vitamin D deficiency; Skin lesions 03/05/2024 Travel 02/26/2024 Telephone [facility] [address] [place] [address] Majo Gibbs MA chart prep 02/19/2024 Refill [facility] [address] [place] [address] Neda Rae DO Diabetic peripheral neuropathy associated with type 2 diabetes mellitus (CMS/HCC) from Last 3 Months Immunizations Name Administration Dates Next Due Hep A, Adult 05/15/2008,08/29/2007 Hep B, Adolescent or Pediatric 05/15/2008,2007,08/29/2007 Influenza injectable quadriv alent preservative free 01/23/2023,01/26/2021,12/23/2019,01/28 Influenza, High Dose Seasona l, Preservative Free 03/05/2024 Influenza, IIV3, injectable 12/26/2010 Moderna Covid-19 Vaccine 12+ 03/15/2021,09/14/19 21,08/12/2020 Pfizer Covid-19 Vaccine 12+ 03/05/2024, Pfizer Covid-19 Vaccine 12+ Bivalent 10/25/2022 Pneumococcal Conjugate PCV 20 05/02/2022 Pneumococcal Polysaccharide PPSV23 12/29/2008 RSV Bivalent 11/15/2023 TD (adult), 2 Lf tetanus tox oid, preservative free, adsorbed 05/18/2003,04/09/1992 Tdap 10/25/2022,12/29/2011 Zoster, Recombinant 06/14/2020,04/05/2020 Family History Medical History Relation Name Comments Esophageal cancer Father Breast cancer Sister Relation Name Status Comments Father Sister Social History Tobacco Use Types Packs/Day Years Used Date Smoking Tobacco: Former Cigarettes Passive Smoke Exposure: Never Smokeless Tobacco: Never Tobacco Cessation:Counseling Given: Not Answered Comments:Started smoking 27 y of age and stopped at her 51 ,stopped 11 y ago,smoked for 24 years --2 PQT a day 46 Alcohol Use Standard Drinks/Week Comments Yes 3 (1 standard drink = 0.6 oz pure alcohol) now 2-3<----6 cans a day of beer--hx of hard liquor use stopped years ago Depression Answer Date Recorded Patient Health Questionnaire-9 Score 3 03/05/2024 Patient Health Questionnaire-9 Score 3 03/05/2024 Last PHQ-9: Questionnaire Data Not on file 1 05/05/2023 Housing Stability Answer Date Recorded What is your housing situation today? I have maureen modi 01/23/[address] you li ve. Do you have problems with any of the following? None of the above 01/23/2023 Food Insecurity Answer Date Recorded Within the past 12 months, y ou worried that your food would run out before you got money to buy more: Never True 01/23/2023 Within the past 12 months,th e food you bought just didn't last and you didn't have enough money to get more: Never True Transportation Answer Date Recorded In the past 12 months, has l ack of transportation kept you from medical appts, meetings, work or from getting things needed for daily living? No 01/23/2023 Utilities Answer Date Recorded In the past 12 months, has t he electric, gas, oil or water company threatened to shut off services in your home? No 01/23/2023 Depression Answer Date Recorded Patient Health Questionnaire-2 Score 0 03/05/2024 Internet Access Answer Date Recorded Internet Access Q1 No 12/07/2023 Internet Access Q2 I do not want or need it 11/09 Comments No Sex and Gender Information Value Date Recorded Sex Assigned at Female 02/06/2022 10:14 AM EDT Legal Sex Female 10:14 AM EDT Gender Identity Female 10/25/2022 10:59 AM EDT Sexual Orientation Straight 10/25/2022 10 :59 AM EDT Last Filed Vital Signs Vital Sign Reading Time Taken Comments Blood Pressure 141/60 03/17/2024 10:37 AM EST Pulse 72 03/17/2024 10:37 AM EST Temperature 36.5 ??C (97.7 ??F) 03/17/2024 10:[address] Respiratory Rate 16 03/17/2024 10:37 AM EST Oxygen Saturation 90% 03/05/2024 9:02 AM EST Inhaled Oxygen Concentration - - Weight 81.5 kg (179 lb 9.6 oz) 03/17/2024 10:37 AM EST Height 154.9 cm (5' 1 ) 03/17/2024 10:37 AM EST Body Mass Index 33.94 03/17/2024 10:37 AM EST Plan of Treatment Upcoming Encounters Date Type Department Care Team (Late st Contact Info) Description 06/06/2024 1:30 PM EST Office Visit [facility] [address] [place] [address] Terrence Avila MD [address] [place] [address] Health Maintenance Due Date Last Done Comments CT Colonography 1958 FIT DNA/Cologuard 1960 FIT 1960 FOBT 1960 Sigmoidoscopy 1958 Diabetes: Foot Exam 1968 Eye Exam 1968 Hepatitis B Vaccines (1 of 3 - Risk 3-dose series) 2018 05/15/2008, 12/06/2007, 08/29/2007 Diabetes: Hemoglobin A1C 06/05/2024 024, 02/28/2024, 06/07/2023, Additional history exists SDOH Screening 10/24/2024 10/25/2023 Diabetes: Urine Protein Screening 02/27/2025 02/28/2024, 09/10/2020, 06/22/2020, Additional history exists Lipid Panel 02/27/2025 02/28/2024, 08/07, 09/10/2020 Alcohol/Substance Use Screening 03/05/2025 03/05/2024 Depression Screening 03/05/2025 03/05/2024, 03/05/20 24 Tobacco Screening 03/17/2025 03/17/2024 Mammogram 05/30/2025 05/30/2023, 05/10, 05/23/2021, Additional history exists Colonoscopy 05/04/2026 05/04/2016 Colorectal Cancer Screening 05/04/2026 Cervical Cancer Screening 02/20/2028 HPV/Cotest 02/20/2028 02/19/2023, 12/19/2016 Pap Smear 02/20/2028 02/19/2023, 12/22/2016 DTaP/Tdap/Td Vaccines (3 - Td or Tdap) 10/25/2032 10/25/2022, 12/29/2011, 05/18/2003, Additional history exists Hepatitis A Vaccines Completed 05/15/2008, 08/29/19 08 Zoster Vaccines Completed 06/14/2020, 04/05/2020 Pneumococcal Vaccine: 50+ Years Completed 05/02/2022, 12/29/2008 RSV Patients and Patients Aged 60 years or older Completed 11/15/2023 Hepatitis C Screening Completed 02/28/2024 COVID-19 Vaccine Completed 03/05/2024, , 10/25/2022, Additional history exists Influenza Vaccine Completed 03/05/2024, , 01/26/2021, Additional history exists HIB Vaccines Aged Out No longer eligi ble based on patient's age to complete this topic HPV Vaccines Aged Out No longer eligi ble based on patient's age to complete this topic IPV Vaccines Aged Out No longer eligi ble based on patient's age to complete this topic Meningococcal Vaccine Aged Out No kanu christi eligible based on patient's age to complete this topic RSV under 20 months Aged Out No longe r eligible based on patient's age to complete this topic Rotavirus Vaccines Aged Out No longer eligible based on patient's age to complete this topic Procedures Procedure Name Priority Date/Time Associated Diagnosis Comments US ABDOMEN LIMITED Routine 04/03/2024 9: 35 AM EST POCT GLYCOSYLATED HEMOGLOBIN (HGB A1C) Routine 03/05/2024 9:03 AM EST Type 2 diabetes mellitus with hyperglycemia, without long-term current use of insulin (CMS/HCC) POCT GLUCOSE Routine 03/05/2024 9:03 AM EST Type 2 diabetes mellitus with hyperglycemia, without long-term current use of insulin (CMS/HCC) PROTHROMBIN TIME-INR Routine 02/28/2024 11:10 AM EST Alcoholic cirrhosis, unspecified whether ascites present (CMS/HCC) LIVER FIBROSIS, FIBROTEST ACTITEST PANEL Routine 02/28/2024 11:10 AM EST Alcoholic cirrhosis, unspecified whether ascites present (CMS/HCC) VITAMIN D,25-OH,TOTAL,IA Routine 02/28/2024 11:10 AM EST Annual physical exam VITAMIN B12/FOLATE, SERUM PANEL Routine 02/28/2024 11:10 AM EST Annual physical exam TSH W/REFLEX TO FT4 Routine 02/28/2024 1 1:10 AM EST Annual physical exam SYPHILIS SCREEN Routine 02/28/2024 11:10 AM EST Annual physical exam LIPID PANEL, STANDARD Routine 02/28/2024 11:10 AM EST Annual physical exam HIV 1/2 ANTIGEN/ANTIBODY, FOURTH GENERATION W/RFL Routine 02/28/2024 11:10 AM EST Annual physical exam HEPATITIS C AB W/REFL TO HCV RNA, QN, PCR Routine 02/28/2024 11:10 AM EST Annual physical exam HEPATITIS B SURFACE ANTIGEN, EIA Routine 02/28/2024 11:10 AM EST Annual physical exam HEPATITIS B SURFACE ANTIBODY, QUALITATIVE Routine 02/28/2024 11:10 AM EST Annual physical exam HEPATITIS B CORE AB TOTAL Routine 02/28/2024 11:10 AM EST Annual physical exam HEMOGLOBIN A1C Routine 02/28/2024 11:10 AM EST Annual physical exam COMPREHENSIVE METABOLIC PANEL Routine 02/28/2024 11:10 AM EST Annual physical exam CBC Routine 02/28/2024 11:10 AM EST Annual physical exam ALBUMIN, RANDOM URINE W/CREATININE Routine 02/28/2024 11:05 AM EST Annual physical exam CHLAMYDIA/N. GONORRHOEAE RNA, TMA, UROGENITAL Routine 02/28/2024 11:05 AM EST Annual physical exam BI MAMMOGRAM SCREENING TOMOSYNTHESIS BILATERAL Routine 05/30/2023 2:00 PM EST HPV MRNA E6/E7 REFLEX TO HPV 16, 18/45 Routine 02/19/2023 10:03 AM EST PAP SMEAR Routine 02/19/2023 10:03 AM EST HM COLONOSCOPY Routine 05/04/2016 from Last 3 Months or Most Recently Relevant to Health Maintenance Results * US Abdomen Limited (04/03/2024 9:35 AM EST) Anatomical Region Laterality Modality Abdomen Ultrasound 04/03/2024 9:35 AM EST Narrative 04/07/2024 2:43 PM EST ? [facility] ?[address] ?[place] [address] ? Ultrasound Report ? Signed ? Patient: TavarezShireen morgan ?MR#: [id number] ?? 1 ? : 1960 ?Acct:[id number] ? Age/Sex: 63 / F ?ADM Date: 04/03/24 ? Loc: HO.US ? Attending Dr: Julissa Newberry MD ? Ordering Physician: Julissa Newberry MD ?? Date of Service: 04/03/24 ?? Procedure(s): US abdomen limited ?? Accession Number(s): [id number] ? cc: Julissa Newberry MD; Shireen Stout MD ? EXAMINATION: ?? US ABDOMEN LIMITED ? CLINICAL INFORMATION: ?? Unspecified cirrhosis of liver. ? COMPARISON: ?? Ultrasound abdomen 10/10/2023 and 11/15/2022. CT abdomen 03/26/2023. ?? X-ray abdomen 05/30/2018. ? TECHNIQUE: ?? Real-time imaging of the right upper quadrant abdominal viscera. ?? Limited visualization due to bowel gas. ? FINDINGS: ? PANCREAS: Limited visualization of pancreatic tail and head. Imaged ?? portion of pancreatic body is unremarkable. ? LIVER: Hepatomegaly, 19.1 cm. Diffusely heterogeneous and coarse ?? hepatic echotexture with lobulated and nodular hepatic contour severely ?? limits visualization and is compatible with provided history of ?? cirrhosis. ? GALLBLADDER: Surgically absent. ? COMMON BILE DUCT: Normal in caliber measuring 0.6 cm in diameter. ? RIGHT KIDNEY: No hydronephrosis. No renal calculi. Limited ?? visualization. The kidney measures 12.2 cm in maximum dimension. ? FREE FLUID: None. ? US/US abdomen limited ?? IMPRESSION: ? 1. Hepatomegaly, 19.1 cm. Diffusely heterogeneous and coarse hepatic ?? echotexture with lobulated and nodular hepatic contour severely limits ?? visualization and is compatible with provided history of cirrhosis. ? 2. Gallbladder surgically absent. ? Electronically signed by: ??Charity Edward MD ??04/07/2024 02:41 PM EST ?? RP ? Dictated By: ?Charity Edward MD ? Signed By: ?<Electronically signed by Charity Edward MD in OV> ? 04/07/24 1441 ? DD/ 0935 ? TD/TT: 04/03/24 0944 ? Performance Test Consultant: ? Procedure Note Donmateoter, Image - 04/07/2024 [place] [address] Ultrasound Report Signed Patient: Shireen TavarezMR#: [id number] 1 : 9Acct:[id number] Age/Sex: 63 / FADM Date: 04/03/24 Loc: HO.US Attending Dr: Julissa Newberry MD Ordering Physician: Julissa Newberry MD Date of Service: 04/03/24 Procedure(s): US abdomen limited Accession Number(s): [id number] cc: Julissa Newberry MD; Shireen Stout MD EXAMINATION: US ABDOMEN LIMITED CLINICAL INFORMATION: Unspecified cirrhosis of liver. COMPARISON: Ultrasound abdomen 10/10/2023 and 11/15/2022. CT abdomen 03/26/2023. X-ray abdomen 05/30/2018. TECHNIQUE: Real-time imaging of the right upper quadrant abdominal viscera. Limited visualization due to bowel gas. FINDINGS: PANCREAS: Limited visualization of pancreatic tail and head. Imaged portion of pancreatic body is unremarkable. LIVER: Hepatomegaly, 19.1 cm. Diffusely heterogeneous and coarse hepatic echotexture with lobulated and nodular hepatic contour severely limits visualization and is compatible with provided history of cirrhosis. GALLBLADDER: Surgically absent. COMMON BILE DUCT: Normal in caliber measuring 0.6 cm in diameter. RIGHT KIDNEY: No hydronephrosis. No renal calculi. Limited visualization. The kidney measures 12.2 cm in maximum dimension. FREE FLUID: None. US/US abdomen limited IMPRESSION: 1. Hepatomegaly, 19.1 cm. Diffusely heterogeneous and coarse hepatic echotexture with lobulated and nodular hepatic contour severely limits visualization and is compatible with provided history of cirrhosis. 2. Gallbladder surgically absent. Electronically signed by: Charity Edward MD 04/07/2024 02:41 PM EST Dictated By: Charity Edward MD Signed By: <Electronically signed by Charity Edward MD in OV> 04/07/24 1441 DD/ 0935 TD/TT: 04/03/24 0944 Performance Test Consultant: [facility] External Provider IMG US PROCEDURES Final Result * (ABNORMAL) POCT glycosylated hemoglobin (Hgb A1c) (03/05/2024 9:03 AM EST) Hemoglobin A1C 7.9(A) 4.0 - 6.0 % QC Media Lot # [id number] Lot# Expiration Date [id number] Blood Capillary blood specimen / Unknown 03/05/2024 9:03 AM EST Result [facility] Shireen Krishnan MD POINT OF CARE TANYA T ENTER/EDIT ORDERABLES Final Result * POCT glucose manually resulted (03/05/2024 9:03 AM EST) Glucose Blood, POC 156 60 - 200 mg/dL QC Media Lot # [id number] Lot# Expiration Date [id number] Blood Capillary blood specimen / Unknown 03/05/2024 9:03 AM EST Shireen Krishnan MD POINT OF CARE TANYA T ENTER/EDIT ORDERABLES Final Result * Syphilis Screen (02/28/2024 11:10 AM EST) Syphilis Screen Nonreactive Nonreactive [facility] Blood 02/28/2024 11:1 0 AM EST 02/28/2024 11:10 AM EST Shireen Krishnan MD LAB BLOOD ORDERAB LES Final Result Performing Organization Address [facility] Co de Phone Number [facility] [address] [place] [phone] * (ABNORMAL) Vitamin D, 25-Hydroxy, Total, Immunoassay (02/28/2024 11:10 AM EST) Vitamin D 25-OH Total 25.9(L) >30 ng/mL [facility] Comment:Health Based Referen ce Values*< 20 ng/mL [id number] ng/mL Insufficient> 30 ng/mL Sufficient*Acosta BERMUDEZ. N Engl J Med. 2007;357:266-280Care must be taken in interpreting Vitamin D results fromdifferent laboratories and methodologies. Published datademonstrated that results from patients undergoinghemodialysis may show a negative bias when tested withvarious automated 25-OH vitamin D assays when compared toLC-MS/MS.When testing samples from patients whose predominant form ofVitamin D is Vitamin D2, such as patients receiving VitaminD2 supplementation, results that are subtherapeutic shouldbe confirmed with another method such as LC-MS/MS. Blood Venous blood specimen / Unknown 02/28/2024 11:10 AM EST 02/28/2024 11:10 AM EST Shireen Krishnan MD LAB BLOOD ORDERAB LES Final Result Performing Organization Address City/[facility]/ZIP Co de Phone Number [facility] [address] [place] [phone] * Vitamin B12 (Cobalamin) and Folate Panel, Serum (02/28/2024 11:10 AM EST) Vitamin B12 322 200 - 900 pg/mL [facility] Comment:NORMAL 200-900 PG/ML INDETERMINATE 160-199 PG/ML DEFICIENT < 160 PG/ML Folate 10.8 > or = 4.0 ng/mL [facility] Comment:Reference Values:> o r = 4.0 ng/mL< 4.0 ng/mL suggests folate deficiency Methotrexate, aminopterin and folinic acid(leucovorin) are chemotherapeutic agents whose molecularstructures are similar to folate; therefore, the Architectfolate assay cannot be used for patients using these drugs. Blood 02/28/2024 11:1 0 AM EST 02/28/2024 11:10 AM EST us Shireen Krishnan MD LAB BLOOD ORDERAB LES Final Result Performing Organization Address City/[facility]/ZIP Co de Phone Number [facility] [address] [place] [phone] * TSH with Reflex to Free T4 (02/28/2024 11:10 AM EST) TSH reflex Free T4 1.19 0.32 - 4.0 uIU/mL [facility] Blood 02/28/2024 11:1 0 AM EST 02/28/2024 11:10 AM EST us Shireen Krishnan MD LAB BLOOD ORDERAB LES Final Result Performing Organization Address [facility] Co de Phone Number [facility] [address] [place] [phone] * (ABNORMAL) Liver Fibrosis (HCV), FibroTest-ActiTest Panel (02/28/2024 11:10 AM EST) Liver Fibrosis Score 0.88 [facility] Liver Fibrosis Stage F4 [facility] Liver Fibrosis Interpretation SEE NOTE [facility] Comment:severe fibrosisFibro Test Score (f) Metavir Score f>=0 and f<=0.21 : F0 (no fibrosis)f>0.21 and f<=0.27 : F0-F1 (no fibrosis)f>0.27 and f<=0.31 : F1 (minimal fibrosis)f>0.31 and f<=0.48 : F1-F2 (minimal fibrosis)f>0.48 and f<=0.58 : F2 (moderate fibrosis)f>0.58 and f<=0.72 : F3 (advanced fibrosis)f>0.72 and f<=0.74 : F3-F4 (advanced fibrosis)f>0.74 and f<=1.00 : F4 (severe fibrosis) Nec Inflam Act Score 0.54 [facility] Nec Inflam Act Grade A2 [facility] Nec Inflam Act Interpretation SEE NOTE [facility] Comment:significant activity ActiTest Score (a) Metavir Score a>=0 and a<=0.17 : A0 (no activity)a>0.17 and a<=0.29 : A0-A1 (no activity)a>0.29 and a<=0.36 : A1 (minimal activity)a>0.36 and a<=0.52 : A1-A2 (minimal activity)a>0.52 and a<=0.60 : A2 (significant activity)a>0.60 and a<=0.62 : A2-A3 (significant activity)a>0.62 and a<=1.00 : A3 (severe activity) JSA-Iejfb-1-Macroglo bulin 301(A) 106 - 279 mg/dL [facility] FIB-Haptoglobin <8(A) 43 - 212 mg/dL [facility] FIB-Apolipoprotein A1 154 101 - 198 mg/dL [facility] FIB-Total Bilirubin 0.5 0.2 - 1.2 mg/dL [facility] FIB-GGT 165(A) 3 - 65 U/L [facility] FIB-ALT 55(A) 6 - 29 U/L [facility] Reference ID [id number] [facility] Footnote SEE NOTE [facility] Comment: The reliability of results is dependent on compliance withthe preanalytical and analytical conditions recommended by[employer]. The tests have to be deferred for: acutehemolysis, acute hepatitis, acute inflammation, extrahepatic cholestasis. The advice of a specialist should besought for interpretation in chronic hemolysis and Gilbert'ssyndrome. The test interpretation is not validated in livertransplant patients. Isolated extreme values of one of thecomponents should lead to caution in interpreting theresults. In case of discordance between a biopsy result ney test, it is recommended to seek the advice of aspecialist. The causes of these discordances could be due toa flaw of the test or to a flaw in the biopsy: i.e. a liverbiopsy has a 33% variability rate for one fibrosis stage.FibroTest is interpretable for chronic hepatitis B and C,alcoholic and non alcoholic steatosis. ActiTest isinterpretable for chronic hepatitis B and C.The performance characteristics have been determined by[employer] [facility]. Ithas not been cleared or approved by the U.S. Food and DrugAdministration. Performance characteristics refer to theanalytical performance of the test.[employer], [employer], the associated logo, [employer] and all associated [employer] combs are theregistered trademarks of [employer]. All third partymarks - (R) and (TM) - are the property of their respectiveowners. (C) [id number] [employer]. Allrights reserved.THIS TEST WAS PERFORMED AT:[employer] [id number] [place], [place] ??[id number] FLORES MD,PHD,TOM Blood 02/28/2024 11:1 0 AM EST 02/28/2024 11:10 AM EST Shireen Krishnan MD LAB BLOOD ORDERAB LES Final Result [facility] [address] [place] [address] [phone] * Hepatitis C Antibody with Reflex to HCV, RNA, Quantitative, Real-Time PCR (02/28/2024 11:10 AM EST) Hepatitis C Antibody Nonreactive Nonreactive [facility] Comment:Antibodies to HCV no t detected; does not exclude early acuteHCV infection. Blood Venous blood specimen / Unknown 02/28/2024 11:10 AM EST 02/28/2024 11:10 AM EST Shireen Krishnan MD LAB BLOOD ORDERAB LES Final Result Performing Organization Address City/[facility]/ZIP Co de Phone Number [facility] [address] [place] [address] [phone] * Hepatitis B surface antigen, EIA (02/28/2024 11:10 AM EST) Hepatitis B Surface Ag Negative Negative [facility] Blood Venous blood specimen / Unknown 02/28/2024 11:10 AM EST 02/28/2024 11:10 AM EST us Shireen Krishnan MD LAB BLOOD ORDERAB LES Final Result Performing Organization Address [facility] Co de Phone Number [facility] [address] [place] [phone] * Hepatitis B Core Antibody, Total (02/28/2024 11:10 AM EST) Hepatitis B Core Antibody Nonreactive Nonreactive [facility] Blood Venous blood specimen / Unknown 02/28/2024 11:10 AM EST 02/28/2024 11:10 AM EST us Shireen Krishnan MD LAB BLOOD ORDERAB LES Final Result Performing Organization Address [facility] Co de Phone Number [facility] [address] [place] [phone] * HIV-1/2 Antigen and Antibodies, Fourth Generation, with Reflexes (02/28/2024 11:10 AM EST) HIV AB/AG Nonreactive Nonreactive [facility] Comment:HIV-1 p24 Ag and/or HIV-1/HIV-2 Ab not detected.A test result that is nonreactive does not exclude thepossibility of exposure to or infection with HIV-1 and/orHIV-2. Nonreactive results in this assay for individualswith prior exposure to HIV-1 and/or HIV-2 may be due toantigen and antibody levels that are below the limit ofdetection of this assay.The ACS Global HIV Ag/Ab Combo assay result andsupplemental assay results should be interpreted inconjunction with the patient's clinical presentation,history and other laboratory results. If the results areinconsistent with clinical evidence, additional testing issuggested to confirm the result. Blood Venous blood specimen / Unknown 02/28/2024 11:10 AM EST 02/28/2024 11:10 AM EST Shireen Krishnan MD LAB BLOOD ORDERAB LES Final Result Performing Organization Address [facility] Co de Phone Number [facility] [address] [place] [phone] * Hepatitis B Surface Antibody, Qualitative (02/28/2024 11:10 AM EST) ~Hepatitis B Surface Antibody REACTIVE Nonreactive [facility] Comment:REACTIVE: > 11.99 mI U/mL Blood Venous blood specimen / Unknown 02/28/2024 11:10 AM EST 02/28/2024 11:10 AM EST Shireen Krishnan MD LAB BLOOD ORDERAB LES Final Result Performing Organization Address [facility] de Phone Number [facility] [address] [place] [phone] * (ABNORMAL) Prothrombin Time-INR (02/28/2024 11:10 AM EST) Prothrombin Time 12.6(H) 10.9 - 12.4 SEC [facility] INTERNATIONAL NORM RATIO 1.1 0.9 - 1.1 [facility] Comment:INTERNATIONAL NORMAL IZED RATIO (INR) REFERENCE RANGES Reference RangeFor patients not on anticoagulant therapy: 0.9 - 1.1INR ranges for oral anticoagulanttherapy:For prevention and treatment of venous thrombosis and pulmonary embolism: 2.0 - 3.0For acute myocardial infarction with aspirin therapy: 2.0 - 3.0For acute myocardial infarction without aspirin therapy: 3.0 - 4.0For patients with mechanical prosthetic heart valves: 2.5 - 3.5 Blood Venous blood specimen / Unknown 02/28/2024 11:10 AM EST 02/28/2024 11:10 AM EST us Shireen Krishnan MD LAB BLOOD ORDERAB LES Final Result Performing Organization Address City/[facility]/ZIP Co de Phone Number [facility] [address] [place] [phone] * (ABNORMAL) CBC (02/28/2024 11:10 AM EST) White Blood Count 5.6 4.8 - 10.8 X10*3/uL [facility] Red Blood Count 3.99(L) 4.20 - 5.50 X10*6/uL [facility] Hemoglobin 13.1 12.0 - 16.0 g/dl [facility] Hematocrit 38.1 37.0 - 47.0 % [facility] Mean Corpuscular Volume 95.5 80.0 - 98.0 fL [facility] Mean Corpuscular Hemoglobin 32.8 27.0 - 33.0 pg [facility] Mean Corpuscular HGB Conc 34.4 31.0 - 35.0 g/dl [facility] Red Cell Distribution Width 13.3 11.0 - 16.0 % [facility] Platelet Count 219 160 - 400 X10*3/uL [facility] Mean Platelet Volume 10.1 9.4 - 12.3 fL [facility] NRBC Pct Auto 0.0 0.0 - 0.2 /100WBC [facility] NRBC Abs Auto 0.000 0.0 - 0.012 X10*3/uL [facility] Blood Venous blood specimen / Unknown 02/28/2024 11:10 AM EST 02/28/2024 11:10 AM EST us Shireen Krishnan MD LAB BLOOD ORDERAB LES Final Result [facility] [address] [place] [phone] * (ABNORMAL) Hemoglobin A1c (02/28/2024 11:10 AM EST) Hemoglobin A1c 7.3(H) <6.0 % [facility] Comment:Hemoglobin A1C Refer ence Range Adults: 4.8 - 6.0 % Non diabetic: < 6.0 % Goal: < 7.0 %Additional Action Suggested: > 8.0 %Note: Hemoglobin A1c results are invalid for patients with abnormal amounts of HbF. Blood transfusions may impact the HbA1c concentration in the patient sample. Estimated Average Glucose 163 mg/dL [facility] Comment:eAG = Estimated ave rage glucose which is %A1C expressed asaverage glucose, using the formula of the K5P-IruqtlmShrwfmj Glucose study (ADAG), Diabetes Care, Vol.31,#8,Nov. 2007 Blood Venous blood specimen / Unknown 02/28/2024 11:10 AM EST 02/28/2024 11:10 AM EST us Shireen Krishnan MD LAB BLOOD ORDERAB LES Final Result [facility] [address] [place] [phone] * Lipid Panel, Standard (02/28/2024 11:10 AM EST) Triglycerides 132 <150 mg/dL [facility] Comment:Desirable Triglyceri de: less than 150 mg/dLBorderline High Triglyceride 150-199 mg/dLHigh Triglyceride: 200-499 mg/dLVery High Triglyceride: greater than or equal to 5OO mg/dL Cholesterol 128 <200 mg/dL [facility] Comment:Desirable Cholestero l: less than 200 mg/dLBorderline High Cholesterol: 200-239 mg/dLHigh Cholesterol: greater than 239 mg/dL LDL Cholesterol Calculated 56 <100 mg/dL [facility] Comment:Desirable LDL: less than 100 mg/dLNear Optimal/Above Optimal LDL: 110- 129 mg/dLBorderline High LDL: 130-159 mg/dLHigh LDL: 160-189 mg/dLVery High LDL: greater than or equal to 190 mg/dL HDL Cholesterol 46 >40 mg/dL [facility] Comment:Desirable HDL: great er than 40 mg/dL Note: This HDL assay may give artificially low results in patients with liver disease. Blood Venous blood specimen / Unknown 02/28/2024 11:10 AM EST 02/28/2024 11:10 AM EST Shireen Krishnan MD LAB BLOOD ORDERAB LES Final Result [facility] [address], [place] [phone] * (ABNORMAL) Comprehensive Metabolic Panel (02/28/2024 11:10 AM EST) Sodium 143 135 - 145 mmol/L [facility] Potassium 4.0 3.3 - 5.1 mmol/L [facility] Chloride 101 96 - 108 mmol/L [facility] Carbon Dioxide 32(H) 22 - 29 mmol/L [facility] Anion Gap 14 12 - 20 [facility] Urea Nitrogen (BUN) 6(L) 9 - 16 mg/dL [facility] Creatinine, Serum 0.73 0.5 - 1.4 mg/dL [facility] Estimated Glomerular Filt Rate >60 [facility] Comment:Chronic Kidney Disea se: Estimated GFR < 60 mL/min/1.34i3Mszlyc Kidney Disease: Estimated GFR < 15 mL/min/1.73m2 Glucose 84 60 - 115 mg/dL [facility] Calcium 10.2 8.4 - 10.2 mg/dL [facility] Bilirubin, Total 0.6 0.0 - 1.0 mg/dL [facility] Aspartate Amino Transferase 78(H) 5 - 31 U/L [facility] Alanine Aminotransferase 71(H) 0 - 31 U/L [facility] Total Protein 7.6 6.5 - 8.0 g/dL [facility] Albumin Level 4.2 3.5 - 5.0 g/dL [facility] Alkaline Phosphatase 50 39 - 117 U/L [facility] Blood Venous blood specimen / Unknown 02/28/2024 11:10 AM EST 02/28/2024 11:10 AM EST us Shireen Krishnan MD LAB BLOOD ORDERAB LES Final Result Performing Organization Address [facility] Co de Phone Number [facility] [address] [place] [phone] * Albumin, Random Urine W/Creatinine (02/28/2024 11:05 AM EST) Creatinine, Urine 80.33 mg/dL [facility] Microalbumin Urine <5.0 mg/L [facility] Microalbum Creatinine Ratio Ur TNP <30 ug/mg cr [facility] Comment:Unable to calculate albumin/creatinine ratio due to lowmicroalbumin or creatinine result. Urine (Urine, Random) 02/28/2024 11:05 AM EST 02/28/2024 12:03 PM EST Shirene Krishnan MD LAB URINE ORDERAB LES Final Result Performing Organization Address [facility] de Phone Number [facility] [address] [place] [phone] * Chlamydia/N. Gonorrhoeae RNA, TMA, Urogenitial (02/28/2024 11:05 AM EST) CT PCR NOT DETECTED Not Detect. [facility] Comment:A not detected test result does not exclude the possibilityof infection because test results can be affected byimproper specimen collection, concurrent antibiotic therapy,or the number of organisms in the specimen which may bebelow the sensitivity of the test. As with many diagnostictests, results from the Xpert CT/NG assay should beinterpreted in conjunction with other laboratory andclinical data available to the clinician.Xpert CT/NG performance has not been evaluated in patientsless than 14 years of age. The assay should not be used forthe evaluationof suspected sexual abuse or for other medico-legalindications. Additional testing is recommended in anycircumstance when false positive or false negative resultscould lead to adverse medical, social or psychologicalconsequences. NG PCR NOT DETECTED Not Detect. [facility] Comment:A not detected test result does not exclude the possibilityof infection because test results can be affected byimproper specimen collection, concurrent antibiotic therapy,or the number of organisms in the specimen which may bebelow the sensitivity of the test. As with many diagnostictests, results from the Xpert CT/NG assay should beinterpreted in conjunction with other laboratory andclinical data available to the clinician.Xpert CT/NG performance has not been evaluated in patientsless than 14 years of age. The assay should not be used forthe evaluationof suspected sexual abuse or for other medico-legalindications. Additional testing is recommended in anycircumstance when false positive or false negative resultscould lead to adverse medical, social or psychologicalconsequences. Urine Urethral structure / Unknown 02/28/2024 11:05 AM EST 02/28/2024 12:03 PM EST Narrative [facility] - 02/28/2024 6:14 PM EST Urine us Shireen Krishnan MD LAB MICROBIOLOGY - GENERAL ORDERABLES Final Result Performing Organization Address City/State/[facility] Co de Phone Number [facility] [address] [place] [address] [phone] * BI Mammogram Screening Tomosynthesis Bilateral (05/30/2023 2:00 PM EST) Anatomical Region Laterality Modality Breast Bilateral Mammography 05/30/2023 2:00 PM EST Narrative 06/23/2023 10:19 PM EDT ? [facility] ? [address] ?[place] [address] ? Mammography Report ? Signed ? Patient: Tavarez,Shireen ?MR#: [id number] ?? 1 ? : 1960 ?Acct:[id number] ? Age/Sex: 62 / F ?ADM Date: /21/24 ? Loc: HO.MAMMO ? Attending Dr: Hayden Cardenas MD ? Ordering Physician: Hayden Cardenas MD ?Results: 2B ?? enign Findings ? Date of Service: 05/30/23 ?Follow Up: 1 Year From Orig ?? inal Mammogram ? Procedure(s): MM tomosynthesis screening BI ?? Accession Number(s): [id number] ? cc: Hayden Cardenas MD; Shireen Stout MD ? EXAMINATION: ?? MM SCREENING DIGITAL BREAST TOMOSYNTHESIS, BILATERAL ? CLINICAL INFORMATION: ? Screening. Asymptomatic. ? COMPARISON: ?? Mammography: This study is compared with prior exams dating back to ?? 2018. ? TECHNIQUE: ?? Digital breast tomosynthesis is performed in both the craniocaudal and ?? mediolateral oblique views along with computer-aided detection (CAD). ?? Synthesized 2D images are generated from the tomosynthesis. ? FINDINGS: ?? There are scattered areas of fibroglandular density (ACR BI-RADS breast ?? composition Category b). ? There are no significant masses, abnormal calcifications, or other ?? abnormalities. ? Few, bilateral, benign, secretory calcifications are present in each ?? breast. ? MM/MM tomosynthesis screening BI ?? IMPRESSION: ?? No mammographic evidence of malignancy. ? ASSESSMENT: ? BI-RADS BI-RADS 2 - Benign Findings ? RECOMMENDATION: ?? Routine annual mammography screening. ? 1 year F/U ? This examination should not preclude the clinical evaluation of a ?? suspicious palpable abnormality. ? This patient's information was entered into a reminder system with a ?? target due date for their next mammogram. ? Dictated By: ?Ingrid [place] MD ? Signed By: ?<Electronically signed by Ingrid [place] MD in OV> ? 06/23/232214 ? DD/ 1400 ? TD/TT: ? Performance Test Consultant: ? Procedure Note Donotuseinterpreter, Image - 06/23/2023 [facility] [address] [place] [address] Mammography Report Signed Patient: Shireen TavarezMR#: [id number] 1 : 9Acct:[id number] Age/Sex: 62 / FADM Date: 05/30/23 Loc: HO.MAMMO Attending Dr: Hayden Cardenas MD Ordering Physician: Hayden Cardenas MDResults: 2B enign Findings Date of Service: 05/30/23Follow Up: 1 Year From Orig inal Mammogram Procedure(s): MM tomosynthesis screening BI Accession Number(s): [id number] cc: Hayden Cardenas MD; Shireen Stout MD EXAMINATION: MM SCREENING DIGITAL BREAST TOMOSYNTHESIS, BILATERAL CLINICAL INFORMATION: Screening. Asymptomatic. COMPARISON: Mammography: This study is compared with prior exams dating back to 2018. TECHNIQUE: Digital breast tomosynthesis is performed in both the craniocaudal and mediolateral oblique views along with computer-aided detection (CAD). Synthesized 2D images are generated from the tomosynthesis. FINDINGS: There are scattered areas of fibroglandular density (ACR BI-RADS breast composition Category b). There are no significant masses, abnormal calcifications, or other abnormalities. Few, bilateral, benign, secretory calcifications are present in each breast. MM/MM tomosynthesis screening BI IMPRESSION: No mammographic evidence of malignancy. ASSESSMENT: BI-RADS BI-RADS 2 - Benign Findings RECOMMENDATION: Routine annual mammography screening. 1 year F/U This examination should not preclude the clinical evaluation of a suspicious palpable abnormality. This patient's information was entered into a reminder system with a target due date for their next mammogram. Dictated By: Ingrid [place] MD Signed By: <Electronically signed by Ingrid [place] MD in OV> 06/23/23 2215 DD/ 1400 TD/TT: Performance Test Consultant: [facility] External Provider IMG BI PROCEDURES Final Result * HPV mRNA E6/E7 w/Reflex to HPV Genotypes 16, 18/45 (02/19/2023 10:03 AM EST) HPV nRNA E6/E7 Not Detected Not Detected [facility] Comment:Methodology: Transcr iption-Mediated AmplificationThis assay detects E6/E7 viral messenger RNA (mRNA) from 14high-risk HPV types (16,18,31,33,35,39,45,51,52,56,58,59,66,68).Cervical sources are required for HPV testing.If a vaginal source from a patient who has had atotal hysterectomy with removal of cervix wassubmitted, please contact the testing laboratoryfor alternative testing options.For additional information, please refer tohttp://education.[employer]/faq/IDK811r5(This link if provided for information/educational purposes only.)THIS TEST WAS PERFORMED AT:[employer] [place] [phone] AGUIRRE MD HPV mRNA E6/E7 [facility] HPV 16 RNA [facility] HPV 18/45 RNA [facility] 02/19/2023 10:0 3 AM EST 02/20/2023 11:30 AM EST [facility] CYTOLOGY ORDERABLES F inal Result [facility] [address] [place] [phone] * Pap Smear (02/19/2023 10:03 AM EST) 02/19/2023 10:0 3 AM EST 02/20/2023 11:30 AM EST [facility] - 03/09/2023 12:47 PM EST ----- ------- Name: Shireen Tavarez ?Age/Sex: 62/F ? : 1960 Unit#: [id number] ?? Attend Dr: WU ARROYO CNM ?Re02/19/23 ?Status: DEP REF ? Location: HO.HHCLNP ? Disch: ? ----- ------- SPEC : [id number] ?RECD: 02/20/23-1129 ? STATUS: ??SOUT ? REQ NUM: [id number] ? NATALIE: 02/19/23-1003 ? SUBM DR: WU ARROYO CNM ? ENTERED: ??02/20/23-9 ?SP TYPE: Pap Smr ?OTHR : ? ORDERED: ??Pap Smear ? Interpretation ?? Satisfactory for evaluation. ?? Negative for intraepithelial lesion or malignancy. ?HPV mRNA E6/E7: ?NOT DETECTED ? This assay detects E6/E7 viral messenger RNA (mRNA) from 14 high-risk HPV types (16, 18, ?? 31, 33, 35, 39, 45, 51, 52, 56, 58, 59, 66, 68) ?? HPV testing performed by [employer], [place], [place]. ??See reference laboratory ?? portion of the EMR for entire report. ?Clinical Information LMP: Postmenopausal Previous PAP test: 2017, ASCUS HPV neg ? Material Received ?? ThinPrep-Cervical ----- ------- Signed (signature on file) JEANA South (ASCP) 03/09/23 1247 ? ----- ------- ? END OF REPORT ? Wu Arroyo CN LAB CYTOLOGY ORDERABLES F inal Result [facility] [address] [place], [place] [phone] * Colonoscopy (05/04/2016) Colonoscopy performed Historical Provider HEALTH MAINTENANCE Final Result from Last 3 Months or Most Recently Relevant to Health Maintenance Insurance [address] [place] [id number] [facility] Care Teams Caponizer Relationship Specialty Start Date End Date Shireen Stout MD [address] [place] [address] PCP - General Internal Medicine 09/08/22
--- OUTSIDE RECORDS SUMMARY | 2024-05-20 10:38 | XMS_ITS | Encounter Summary ---
Author Organization [employer] Address [address] [facility] [address]t [place] [address] Care Team Providers Care Child Day Care Teacher Name Role Phone Shireen Stout MD Primary Care Pro vider Reason for Visit * Reason Comments Med Refill Encounter Details Date Type Department Care Team (Late st Contact Info) Description 05/12/2024 Refill [facility] [address] [place], [place] [phone] Shireen Stout MD [address] [place], [place] [phone] Mixed hyperlipidemia Social History Tobacco Use Types Packs/Day Years [...] Description 06/06/2024 1:30 PM EST Office Visit [facility] [address] [place] [phone] Terrence Avila MD [address] [place] [phone] documented as of this encounter Visit Diagnoses Diagnosis Mixed hyperlipidemia documented in this encounter Additional Health Concerns Assessment Noted Time PHQ-9 Depression Total Score: 3 03/05/20 24 9:07 AM EST documented as of this encounter Care Teams Child Day Care Teacher Relationship Specialty Start Date End Date Shireen Stout MD [address] [place] [phone] PCP - General Internal Medicine 09/08/22 documented as of this encounter
--- OUTSIDE RECORDS SUMMARY | 2024-05-20 10:39 | XMS_ITS | Encounter Summary ---
Author Organization [facility] Address [address] [place] [address] 7t [place] [address] Care Team Providers Care Cardiology Nurse Name Role Phone Tonja Guzmán Jeanette BOOTHP Primary Care Provider [phone] Shireen Stout MD Primary Care Pro vider Encounter Details Date Type Department Care Team (Late st Contact Info) Description 06/27/2022 Abstract [facility] [address] [place] [address] [phone] Provider, MD Ja Social History Tobacco Use Types Packs/Day Years Used Date Smoking Tobacco: Never Assessed Comments Unknown Sex and Gender Information Value [...] Description 06/06/2024 1:30 PM EST Office Visit [facility] [address] [place] [address] [phone] Terrence Avila MD [address] [place] [address] [phone] documented as of this encounter Procedures Procedure Name Priority Date/Time Associated Diagnosis Comments HEMOGLOBIN A1C (EXTERNAL RESULTS ONLY) Routine 04/20/2022 3:08 PM EST documented in this encounter Results * (ABNORMAL) Hemoglobin A1c (04/20/2022 3:08 PM EST) Hemoglobin A1C 8.9(A) 4.0 - 6.0 % Comment:[facility] 04/20/2022 3:08 PM EST Narrative Eliza Salgado - 04/20/2022 3:08 PM EST A1c performed at [facility] [place] us Historical Provider POINT OF CARE TEST ENTER/ EDIT ORDERABLES Final Result documented in this encounter Visit Diagnoses Not on filedocumented in this encounter Care Teams Cardiology Nurse Relationship Specialty Start Date End Date Tonja Guzmán FNP PCP - General Family Medicine 12/04/21 09/07/22 Shireen Stout MD [address] [place] [phone] PCP - General Internal Medicine 09/08/22 documented as of this encounter
--- OUTSIDE RECORDS SUMMARY | 2024-05-20 10:39 | XMS_ITS | Encounter Summary ---
Author Organization [employer] Address [address]t [place] [address] Care Team Providers Care Nurse Supervisor Name Role Phone Shireen Stout MD Primary Care Pro vider Reason for Visit * Reason Comments Med Refill Encounter Details Date Type Department Care Team ([facility] st Contact Info) Description 04/05/2023 Refill [facility] [address] [place], [place] [phone] Enedelia Coley MD [address] [place], [place] [phone] Social History Tobacco Use Types Packs/Day Years [...] Patient Health Questionnaire-2 Score 2 12/15/2022 Comments No Sex and Gender Information Value Date Recorded Sex Assigned at Female 02/06/2022 10:14 AM EDT Legal Sex Female 10:14 AM EDT Gender Identity Female 10/25/2022 10:59 AM EDT Sexual Orientation Straight 10/25/2022 10 :59 AM EDT documented as of this encounter Miscellaneous Notes * Telephone Encounter - Enedelia Coley MD - 04/10/2023 9:25 AM EST Approving, but needs appt for additional refills. documented in this encounter Plan of Treatment Upcoming Encounters Date Type Department Care Team (Late st Contact Info) Description 06/06/2024 1:30 PM EST Office Visit [facility] [address] [place] [phone] Terrence Avila MD [address] [place] [address] [phone] documented as of this encounter Visit Diagnoses Not on filedocumented in this encounter Additional Health Concerns Assessment Noted Time PHQ-9 Depression Total Score: 5 12/16/19 2:02 PM EDT documented as of this encounter Care Teams Nurse Supervisor Relationship Specialty Start Date End Date Shireen Stout MD [address] [place] [phone] PCP - General Internal Medicine 09/08/22 documented as of this encounter
--- OUTSIDE RECORDS SUMMARY | 2024-05-20 10:39 | XMS_ITS | Encounter Summary ---
Author Organization [employer] Address [address] [facility] [address]t [place] [address] Care Team Providers Care [employer] Fighter Pilot Name Role Phone Shireen Stout MD Primary Care Pro vider Reason for Visit * Reason Comments Med Refill Encounter Details Date Type Department Care Team ([facility] st Contact Info) Description 10/17/2023 Refill [facility] [address] [place] [address] Bruna Yusuf FNP [address] [place] [address] Social History Tobacco Use Types Packs/Day Years [...] Description 06/06/2024 1:30 PM EST Office Visit [facility] [address] [place] [address] [phone] Terrence Avila MD [address] [place] [phone] documented as of this encounter Visit Diagnoses Not on filedocumented in this encounter Additional Health Concerns Assessment Noted Time PHQ-9 Depression Total Score: 5 12/16/19 23 2:02 PM EDT documented as of this encounter Care Teams [employer] Fighter Pilot Relationship Specialty Start Date End Date Shireen Stout MD [address] [place] [phone] PCP - General Internal Medicine 09/08/22 documented as of this encounter
--- OUTSIDE RECORDS SUMMARY | 2024-05-20 10:39 | XMS_ITS | Continuity of Care Document ---
Author Organization [facility] Address [facility] [place] [address] Phone Care Team Providers Care Mutual Fund Accountant Name Role Phone Wilian ANTHONY, Nonyerem Unavailable [...] Date OFFICE/OUTPATIENT VISIT, EST Pap Lb, Ct-Ng, [id number]-[id number] [facility] Referral Reconciliation [facility] Chart Review OFFICE/OUTPATIENT VISIT, EST CBC With Differential/Platelet-[id number] Oct ROUTINE VENIPUNCTURE Comp. Metabolic Panel [id number] 2016 Hgb A1c with eAG Estimation-[id number] TSH-[id number] PREV VISIT, EST, AGE 40-64 OFFICE/OUTPATIENT VISIT, EST CBC With Differential/Platelet-47588 Sep ROUTINE VENIPUNCTURE Comp. Metabolic Panel [id number] 2015 Hgb A1c with eAG Estimation-[id number] Panel [id number] [id number] Advance Directives Directive Yes / No Effective Date File Name No Information Encounters Encounter Description Practice Location Reason(s) For Visit Diagnoses Date Provider Providers Copied on Encounter [facility], [address], [place], [place], [id number], [place] tel: [facility] [place] No Information 8 Osuji Nonyerem. [address], [place], [address], [place]. tel: [phone] [facility], [address] [facility], [place], [place], [id number], [place] tel: [facility] [place] Abnormal mammogram 7 [facility] [employer]. [address] [place], [address], [place]. tel: [phone] Consulting Provider: Vannesa Groves ams, [place]. OFFICE/OUTPA TIENT VISIT, EST [facility], [address], [place], [place], [id number], [place] tel: [facility] [place] colon cancer screen (chief complaint) hypertensi on (chief complaint) pap test (chief complaint) mammogram (chief complaint) Encounter for screening for respiratory tuberculosisBod y mass index (BMI) 40.0-44.9, adultCervical cancer screeningOther screening mammogramColon cancer screeningBorder line systolic HTN 7 Osuji Nonyerem. [address], [place], [address], [place]. tel: [phone] [facility], [address], [place], [place], [id number], [place] tel: [facility] [place] No Information 7 [facility]. [address] [place], [address], [place]. tel: [phone] Consulting Provider: Shireen Vivar LVN. OFFICE/OUTPA TIENT VISIT, EST [facility], [address] [place], [id number], tel: [facility] General follow up (chief complaint) hypertensi on (chief complaint) diabetes/t hyroid screen (chief complaint) mammogram (chief complaint) Body mass index (BMI) 38.0-38.9, adultBorderline systolic HTNScreening for diabetes mellitusScreeni ng for thyroid disorderOther screening mammogram 7 Osuji Nonyerem. [facility] [address], [facility], [place]. tel: [phone] PREV VISIT, EST, AGE 40-64 [facility], [facility] [address], [place], [id number], tel: Osmin [place]oyt No Information 6 Osuji Nonyerem. [facility] [address], [place], [facility], . tel: [phone] OFFICE/OUTPA TIENT VISIT, EST [facility], [facility] [address], [place], [place], [id number], tel: [facility] Physical (chief complaint) preventive exam (chief complaint) rash (chief complaint) BP check (chief complaint) Body mass index (BMI) 40.0-44.9, adultEncounter for preventative adult health care exam with abnormal findingsScreeni ng for diabetes mellitusScreeni ng for thyroid disorderElevate d blood-pressure reading, without diagnosis of hypertensionPso riasis 6 Osuji Nonyerem. [facility] [address], [place], [facility], [place]. tel: [phone] Family History Family Member Type Diagnosis Age At Onset No Information Payers Payer name Insurance type Covered constitution party ID Authoriza tion(s) SELF PAY Category C [id number] Social History Type Description Quantity Date Captured Comments Sex Female Smoking Status No Information Chief Complaint And Reason For Visit No Information Plan Of Treatment Date Type Action Status Goal MMR Vaccine. Due on 017 due Goal Flu Vaccine. Due on due Goal Tdap. Due on due Goal Td vaccine. Due on 17 due Goal FOBT. Due on due Goal Tdap. Due on due Goal Flu Vaccine. Due on due Goal FOBT. Due on due Goal Td vaccine. Due on due Goal MMR Vaccine. Due on due Goal Dietary manageme nt education, guidance, and counseling completed Goal Td vaccine. Due on due Goal Colonoscopy. Due on due Goal Flu Vaccine. Due on due Goal Tdap. Due on due Goal FOBT. Due on due Goal MMR Vaccine. Due [...] to Body mass index (BMI) 38.0-38.9, adult thyroid labs today Related to Sc reening for thyroid disorder A1c today Related to Scree janice for diabetes mellitus DASH DIET/LOW SALT D IET encouraged. BP [...] Elevated blood-pressure reading, without diagnosis of hypertension thyroid labs today Related to Sc reening [...]
--- OUTSIDE RECORDS SUMMARY | 2024-05-20 10:39 | XMS_ITS | Continuity of Care Document ---
Author Organization [facility] Address [address] [place] [address]- Care Team Providers Care Black Pickler Name Role Phone Chacho Krishnan MD, Pranav Carrera Primary Care Maisha marcano [id number] Date[facility]s): 04/18/24 - 05/18/24 [facility] [address] [place] [id number] Encounter Type: Triage Allergies, Adverse Reactions, Alerts Substance Criticality Severity Reaction Reaction Severity Status Romero mouth itchiness Acti ve Other Environmental Allergy pine trees- eye itchiness Active Apples rash in the mouth Ac tive [place] mouth itchiness Acti ve Peanuts rash in mouth Active Medications acamprosate 333 mg oral delayed release tablet 2 tablet = 666 mg, By Mouth, 3 times a day, 0 Refills, Maintenance, 05/29/22 1:54:00 PM EST, Partialfill upon patient request if the prescription is for a schedule II opioid drug. Start Date: 05/29/22 Status: Ordered Repeat number: 1 atorvastatin 40 mg oral tablet 1 tablet = 40 mg, By Mouth, Daily, # 30 tablet, 0 Refills, Maintenance, 01/09/19 2:14:55 PM EDT, Tablet Start Date: 01/09/19 Status: Ordered Quantity: 30.0 Unit: tablet Repeat number: 1 BD Ultra-Fine 33G Lancets See Instructions, # 200 each, Refills 5, Tot. Refills 5, Maintenance, please use as directed for Type 2 Diabetes Mellitus to check BG 2 times per day, 90 day supply E11.9, 08/01/22 9:34:00 AM EDT, Supply, 157, cm, 05/29/22 13:45:00 EST, Height, 78.5, kg, 05/29/22 13:45:00 EST, Dry Weight Start Date: 08/01/22 Stop Date: 01/28/23 Status: Ordered Quantity: 200.0 Unit: each Repeat number: 6 cholecalciferol 2000 intl units oral tablet 1 tablet = 2,000 International_Units, By Mouth, Daily, # 30 tablet, 6 Refills, Maintenance, :22:45 PM EDT, [facility] Start Date: 12/25/12 Stop Date: 07/23/13 Status: Ordered Quantity: 30.0 Unit: tablet Repeat number: 7 Diabetic shoes Diabetic shoes, See Instructions, # 1 each, Refills 0, Tot. Refills 0, Maintenance, Diabetic shoes E11.9, 04/11/24 10:37:00 AM EST, Supply Start Date: 04/11/24 Status: Ordered Quantity: 1.0 Unit: each Repeat number: 1 ergocalciferol 72363 iu oral capsule 1 capsule = 50,000 International_Units, By Mouth, Every week, # 5 capsule, 3 Refills, Maintenance, 08/23/11 5:11:34 PM EDT Start Date: 08/23/11 Stop Date: 12/21/11 Status: Ordered Quantity: 5.0 Unit: capsule Repeat number: 4 fenofibrate 134 mg oral capsule 1 capsule = 134 mg, By Mouth, Daily, 0 Refills, Maintenance, 05/12/11 11:07:26 AM EST Start Date: 05/12/11 Status: Ordered Repeat number: 1 ferrous sulfate 325 mg oral tablet 325 Unknown, Oral, 2 Refill(s), TAKE 1 TABLET BY MOUTH EVERY MORNING, 0 Refills, 02/12/23 7:00:00 PMEST, Partial fill upon patient request if the prescription is for a schedule II opioid drug. Start Date: 02/12/23 Status: Ordered Repeat number: 1 FreeStyle Lite Strips FreeStyle Lite Strips, See Instructions, # 200 Unknown, 6 Refills, Maintenance, TEST BLOOD SUGAR 1-2 TIMES PER DAY, 08/21/23 1:28:00 PM EDT, 156, cm, 06/05/23 9:59:00 EST, Height, 78.5, kg, 05/29/22 13:45:00 EST, Dry Weight Start Date: 08/21/23 Status: Ordered Quantity: 200.0 Unit: Unknown Repeat number: 1 Freestyle Lite Test Strips See Instructions, # 200 each, Refills 6, Tot. Refills 6, Maintenance, please use as directed for Type 2 Diabetes Mellitus to check BG 1-2 times per day E11.9, 04/16/22 12:20:00 PM EST, Supply, 157, cm,01/03/22 14:44:00 EDT, Height, 76.7, kg, 01/03/22 14:44:00 EDT, Dry Weight Start Date: 04/16/22 Stop Date: 11/12/22 Status: Ordered Quantity: 200.0 Unit: each Repeat number: 7 gabapentin 100 mg oral capsule 200 mg, 2, capsule, By Mouth, 2 times a day, # 120 capsule, Refills 0, Maintenance, 01/09/19 2:15:15PM EDT Start Date: 01/09/19 Status: Ordered Quantity: 120.0 Unit: capsule Repeat number: 1 Gvoke HypoPen 1 mg/0.2 mL subcutaneous solution = 1 mg, Subcutaneous Infusion, Once, To be use for hypoglycemic emergency by family member or accompanying person, if blood glucoses less than 60 and unconscious. Please call 911 after use glucagon pen., # 1 each, 0 Refills, Soft Stop, 04/11/24 12:12:00 PM EST, Partial fill upon patient request if the prescription is for a schedule II opioid drug. Start Date: 04/11/24 Status: Ordered Quantity: 1.0 Unit: each Repeat number: 1 HumuLIN R Turner (Concentrated) human recombinant 500 units/mL subcutaneous solution See Instructions, Please take 120 units in AM before breakfast, and 100 units daily before dinner. TAKE 30 minutes before meals. E11.9 E11.9, # 18 mL, 5 Refills, Maintenance, 04/11/24 10:27:00 AM EST, [facility], Partial fill upon patient request if the prescription is for a schedule II opioid drug., 156, cm, 04/11/24 9:42:00 EST, Height, 78.5, kg, 05/29/22 13:45:00 EST, Dry Weight Start Date: 04/11/24 Status: Ordered Quantity: 18.0 Unit: mL Repeat number: 6 ketotifen 0.025% ophthalmic solution 1 drops, Eyes, Both, Every 8 hours, # 5 mL, 0 Refills, Maintenance, 01/09/19 2:16:24 PM EDT, Ophth Solution Start Date: 01/09/19 Status: Ordered Quantity: 5.0 Unit: mL Repeat number: 1 Myrbetriq 25 mg oral tablet, extended release 1 tablet, By Mouth, Daily in AM, DO NOT BREAK, CRUSH. DISSOLVE OR CHEW., # 30 tablet, 11 Refills, Maintenance, 06/20/23 11:33:00 AM EDT, [facility], 156, cm, 06/05/23 9:59:00 EST, Height, 78.5, kg, 05/29/22 13:45:00 EST, Dry Weight Start Date: 06/20/23 Status: Ordered Quantity: 30.0 Unit: tablet Repeat number: 12 Omeprazole By Mouth, 2 times a day, 0 Refills, Maintenance, 06/10/19 11:57:00 AM EST Start Date: 06/10/19 Status: Ordered Repeat number: 1 Oyster Shaquille 1250 mg (500 mg elemental calcium) oral tablet 180 each, 0 Refill(s), TAKE 1 TABLET BY MOUTH TWICE DAILY IN THE MORNING AND IN THE EVENING WITH MEALS, 0 Refills, 05/03/23 2:01:00 PM EST, Partial fill upon patient request if the prescription is fora schedule II opioid drug. Start Date: 05/03/23 Status: Ordered Repeat number: 1 pantoprazole 20 mg oral delayed release tablet 1 tablet = 20 mg, By Mouth, Daily, 0 Refills, Maintenance, 05/29/22 1:54:00 PM EST Start Date: 05/29/22 Status: Ordered Repeat number: 1 Patient's Own Meds albuterol nebulizer as needed, Maintenance, 06/10/19 12:20:00 PM EST Start Date: 06/10/19 Status: Ordered Repeat number: 1 Pen [place], 31 G x 8 mm BD Ultra Fine III See Instructions, # 100 each, Refills 5, Tot. Refills 5, Maintenance, use as directed for Type 2 Diabetes Mellitus to give insulin daily. E11.9, 06/05/23 11:00:00 AM EST, Supply, 156, cm, 06/05/23 9:59:00 EST, Height, 78.5, kg, 05/29/22 13:45:00 EST, Dry Weight Start Date: 06/05/23 Stop Date: 12/02/23 Status: Ordered Quantity: 100.0 Unit: each Repeat number: 6 sertraline 50 mg oral tablet 1 tablet = 50 mg, By Mouth, Daily, # 30 tablet, 0 Refills, Maintenance, 01/09/19 2:15:50 PM EDT, Tablet Start Date: 01/09/19 Status: Ordered Quantity: 30.0 Unit: tablet Repeat number: 1 Symbicort 160mcg/4.5mcg Inhaler 2, puffs, Inhalation, 2 times a day, Refills 0, Maintenance, 06/10/19 11:58:00 AM EST Start Date: 06/10/19 Status: Ordered Repeat number: 1 traZODone 100 mg oral tablet 60 each, 0 Refill(s), TAKE 2 TABLETS BY MOUTH EVERY DAY AT BEDTIME, Refills 0, 05/03/23 2:01:00 PM EST, Partial fill upon patient request if the prescription is for a schedule II opioid drug. Start Date: 05/03/23 Status: Ordered Repeat number: 1 TRUEplus Lancets 33 gauge TRUEplus Lancets 33 gauge, See Instructions, # 100 Unknown, 3 Refills, Maintenance, TEST BLOOD SUGAR TWICE DAILY, 09/11/23 2:48:00 PM EDT, 156, cm, 06/05/23 9:59:00 EST, Height, 78.5, kg, 05/29/22 13:45:00 EST, Dry Weight Start Date: 09/11/23 Status: Ordered Quantity: 100.0 Unit: Unknown Repeat number: 1 Zantac Daily, 0 Refills, Maintenance, 06/10/19 11:57:00 AM EST Start Date: 06/10/19 Status: Ordered Repeat number: 1 Problem List Condition Confirmation Course Effective Dates Status H ealth Status Informant Asthma Confirmed Active Chronic kidney disease Confirmed Active Liver cirrhosis Confirmed Active Constipation Confirmed Active Depression Confirmed Active Diabetic nephropathy Confirmed Active GERD (gastroesophageal reflux disease) Confirmed Active Hyperlipidemia Confirmed Active Hypertension Confirmed Active Hyperthyroidism Confirmed Active Fecal incontinence Confirmed Active Microalbuminuria Confirmed Active Obese class I Confirmed Active Obesity Confirmed Active Pulmonary nodule following infection by Coccidioides Confirmed Active Tobacco use Confirmed Active Type II diabetes mellitus Confirmed Active Urinary incontinence Confirmed Active Social History Social History Type Response Smoking Status Former smoker, quit more than 30 days ago entered on: 01/09/19 Sex Sex Representation Female (finding) Implantable Device List Procedure Provider Procedure Date Device Type Site Transobturator Midurethral S ling With Bailee Moorcho MD 06/16/19 Unknown Vagina Device Identifier Serial Number Lot or Batch Number Manufacturing Date Expiration Date Distinct Identification Code MRI Safety Implantable Status Assigning Authority [id number] Unknown [id number] Unknown 04/24/22 Unknown Unknown Active GS1 Patient Care team information Care Team Personnel Name: Chacho Krishnan MD, Pranav Carrera [facility] Outreach Member Role: PCP Address: [address] [place] [address] Telecom: Care Team Related Persons Name: JONATHAN BAILEY Name: JUNIOR LYNN Insurance Providers Guarantor name: PRANAV BAILEY Maria Parham Health Information #: 1 Payer: [facility] Member Number: NA Policy Number: NA Group Number: [id number]
--- OUTSIDE RECORDS SUMMARY | 2024-05-20 10:40 | XMS_ITS | Encounter Summary ---
Author Organization [employer] Address [address] [facility] [address] [place] [address] Care Team Providers Care Press Clipper Name Role Phone Shireen Stout MD Primary Care Pro vider Reason for Visit * Reason Comments Med Refill Encounter Details Date Type Department Care Team (Late st Contact Info) Description 07/27/2023 Refill [facility] [address] [place], [place] [phone] Shireen Stout MD [address] [place], [place] [phone] Diabetic peripheral neuropathy associated with type 2 diabetes mellitus (CMS/HCC) Social History Tobacco Use Types Packs/Day [...] Description 06/06/2024 1:30 PM EST Office Visit [facility] [address] [place] [phone] Terrence Avila MD [address] [place] [address] [phone] documented as of this encounter Visit Diagnoses Diagnosis Diabetic peripheral neuropathy associated with type 2 diabetes mellitus ([facility]) documented in this encounter Additional Health Concerns Assessment Noted Time PHQ-9 Depression Total Score: 5 12/16/19 2:02 PM EDT documented as of this encounter Care Teams Press Clipper Relationship Specialty Start Date End Date Shireen Stout MD [address] [place] [address] [phone] PCP - General Internal Medicine 09/08/22 documented as of this encounter
--- OUTSIDE RECORDS SUMMARY | 2024-05-20 10:40 | XMS_ITS | Clinical Summary ---
Author Organization [facility] Address [address] [place] [address] Phone Care Team Providers Care Package Worker Name Role Phone Shireen Stout MD Primary Care Pro vider Allergies Active Allergy Reactions Criticality Noted Date Comments Jimmy Inhibitors 11/02/2023 Apple 11/02/2023 Romero 11/02/2023 [place] (Prunus Persica) 11/02/2023 Peanut 11/02/2023 Medications albuterol HFA (PROAIR HFA ; PROVENTIL HFA ; VENTOLIN HFA) 90 mcg/actuation inhaler Inhale 2 Puffs into the lungs every 4 hours as needed. Active alendronate (FOSAMAX) 70 mg tablet Take 1 tablet (70 mg total) by mouth every 7 (seven) days. Active ammonium lactate (LAC-HYDRIN) 12 % lotion Apply topically as needed. Active ascorbic acid (VITAMIN C) 250 MG chewable tablet Take 1 Tablet by mouth daily. Active atorvastatin (LIPITOR) 40 mg tablet Take 1 Tablet by mouth daily. Active budesonide-form oteroL (SYMBICORT) 160-4.5 mcg/actuation inhaler Inhale 2 Puffs into the lungs 2 times daily. Active canagliflozin (INVOKANA) 300 mg tablet Take 300 mg by mouth daily. Active cetirizine (ZyrTEC) 10 mg tablet Take 1 tablet (10 mg total) by mouth 1 (one) time each day. Active cholecalciferol (VITAMIN D-3) 125 mcg (5,000 unit) capsule Take 125 mcg by mouth daily. Active clobetasoL (TEMOVATE) 0.05 % cream Apply topically 2 times daily. Active docusate sodium (COLACE) 100 mg tablet Take 1 Tablet by mouth daily as needed. Active EPINEPHrine (EpiPen 2-Ford) 0.3 mg/0.3 mL injection Inject 0.3 mg as directed as needed. Active fenofibrate micronized (LOFIBRA) 134 mg capsule Take 1 Capsule by mouth at bedtime. Active Immunizations Name Administration Dates Next Due COVID-19 (Moderna/Spikevax) 12yo and older 10/25 Medical History Medical History Date Comments DM (diabetes mellitus), type 2 (CMS/HCC) DX:DM (diabetes mellitus), type 2 (HCC) Alcoholic cirrhosis (CMS/HCC) DX :Alcoholic cirrhosis (HCC) Other seasonal allergic rhinitis DX:Other seasonal allergic rhinitis Constipation DX:Constipation HTN (hypertension) DX:HTN (hyper tension) Pulmonary emphysema (CMS/HCC) DX :Pulmonary emphysema (HCC) Stage 2 chronic kidney disease D X:Stage 2 chronic kidney disease Osteoporosis DX:Osteoporosis Social History Tobacco Use Types Packs/Day Years Used Date Smoking Tobacco: Never Assessed Comments Unknown Sex and Gender Information Value Date Recorded Sex Assigned at Not on file Legal Sex Female 11:05 AM EDT Gender Identity Not on file Sexual Orientation Not on file Obstetrics History Last Filed Vital Signs Vital Sign Reading Time Taken Comments Blood Pressure - - Pulse - - Temperature - - Respiratory Rate - - Oxygen Saturation - - Inhaled Oxygen Concentration - - Weight 79.8 kg (176 lb) 11/02/2023 8:44 AM EDT Height 154.9 cm (5' 1 ) 11/02/2023 8:44 AM EDT Body Mass Index 33.25 11/02/2023 8:44 AM EDT Plan of Treatment Upcoming Encounters Date Type Department Care Team (Late st Contact Info) Description 06/18/2024 11:00 AM EDT Office Visit Orthopedic Surgery - [place] [address] [phone] Herson Fitzgerald, DPM [address] [address] Health Maintenance Due Date Last Done Comments Breast Cancer Screening 1960 DTaP,Tdap,and Td Vaccines (1 - Tdap) 1965 Pneumococcal Vaccine: 50+ Ye ars (1 of 2 - PCV) 1977 Pneumococcal Vaccine: Pediat rics (0 to 5 Years) and At-Risk Patients (6 to 64 Years) (1 of 2 - PCV) 1977 Cervical Cancer Screening: P ap Smear 11/30/1979 Zoster Vaccines (1 of 2) 2008 RSV Immunization Patients 60 + Years Old (1 - Risk 60-74 years 1-dose series) 2018 COVID-19 Vaccine (2 - Modern a risk series) 11/22/2022 10/25/2022 Colorectal Cancer Screening: Colonoscopy 11/02/2023 Depression Screening 11/02/2023 Hepatitis C Screening 11/02/2023 Osteoporosis Screening (Bone Density Screening) 11/02/2023 Social Influencers of Health Screening 11/02/2023 Falls Risk Assessment 11/30/2023 Influenza Vaccine (#1) 2023 HIB Vaccines Aged Out No longer eligi ble based on patient's age to complete this topic HPV Vaccines Aged Out No longer eligi ble based on patient's age to complete this topic Hepatitis A Vaccines Aged Out No long er eligible based on patient's age to complete this topic Hepatitis B Vaccines Aged Out No long er eligible based on patient's age to complete this topic IPV Vaccines Aged Out No longer eligi ble based on patient's age to complete this topic MMR Vaccines Aged Out No longer eligi ble based on patient's age to complete this topic Meningococcal ACWY Vaccine Aged Out N o longer eligible based on patient's age to complete this topic Meningococcal B Vacine Aged Out No lo nger eligible based on patient's age to complete this topic RSV Immunization Patients Un leena 20 months Aged Out No longer eligible b ased on patient's age to complete this topic Varicella Vaccines Aged Out No longer eligible based on patient's age to complete this topic Insurance , [address] [address] MEDICAID - [place] Care Teams Package Worker Relationship Specialty Start Date End Date Shireen Stout MD [address] [facility] [address] [place] [phone] PCP - General 08/16/23
--- OUTSIDE RECORDS SUMMARY | 2024-05-20 10:40 | XMS_ITS | Encounter Summary ---
Author Organization [employer] Address [address] [facility] [address] [place] [address] Care Team Providers Care Public Policy Professor Name Role Phone Shireen Stout MD Primary Care Pro vider Reason for Visit * Reason Comments Med Refill Encounter Details Date Type Department Care Team (Late st Contact Info) Description 07/27/2023 Refill [facility] MED [facility] PEDS [address] [place], [place] [phone] Shireen Stout MD [address] [place], [place] [phone] Diabetic peripheral neuropathy associated with type 2 [...] Description 06/06/2024 1:30 PM EST Office Visit [facility] [address] [place] [phone] Terrence Avila MD [address] [place] [address] [phone] documented as of this encounter Visit Diagnoses Diagnosis Diabetic peripheral neuropathy associated with type 2 diabetes mellitus ([facility]) documented in this encounter Additional Health Concerns Assessment Noted Time PHQ-9 Depression Total Score: 5 12/16/19 2:02 PM EDT documented as of this encounter Care Teams Public Policy Professor Relationship Specialty Start Date End Date Shireen Stout MD [address] [place] [address] [phone] PCP - General Internal Medicine 09/08/22 documented as of this encounter
== END 2024-05-20 09:58 | disposition home or self-care (01) ==
PROVIDERS: PCP Student in an Organized Health Care Education/Training Program; Visit Provider Orthopaedic Surgery
DX: M17.12 Unilateral primary osteoarthritis, left knee (principal)
CPT/HCPCS: 20610; 99213

== ENCOUNTER → 2024-05-20 09:32 | Outpatient (BNVA) | payer OTHER, SELFPAY | PROVIDERS: PCP Student in an Organized Health Care Education/Training Program; Visit Provider Orthopaedic Surgery | DX: M17.12 Unilateral primary osteoarthritis, left knee (principal); M25.562 Pain in left knee | CPT/HCPCS: 20610; 99212; J1010; J2003 ==

== ENCOUNTER 2024-06-30 09:50 | Outpatient (REF) | payer OTHER, SELFPAY | END 2024-06-30 09:51 | disposition home or self-care (01) | LOC: HO.MAMMO 09:50 | PROVIDERS: PCP Student in an Organized Health Care Education/Training Program; Visit Provider Student in an Organized Health Care Education/Training Program | DX: Z12.31 Encounter for screening mammogram for malignant neoplasm of breast (principal) | CPT/HCPCS: 77063; 77067 ==

== ENCOUNTER → 2024-06-30 10:15 | Outpatient (BNV) | payer OTHER, SELFPAY | PROVIDERS: PCP Student in an Organized Health Care Education/Training Program; Visit Provider Internal Medicine | DX: Z12.31 Encounter for screening mammogram for malignant neoplasm of breast (principal) | CPT/HCPCS: 77063; 77067 ==

== ENCOUNTER 2024-07-08 08:46 | Outpatient (AMB) | payer OTHER, SELFPAY ==
--- OUTSIDE RECORDS SUMMARY | 2024-07-08 09:10 | XMS_ITS | Continuity of Care Document ---
Author Organization [facility] Address [facility] [place] [address] Phone Care Team Providers Care Fire Sprinkler Fitter Name Role Phone Wilian ANTHONY, Nonyerem Unavailable [...] Date OFFICE/OUTPATIENT VISIT, EST Pap Lb, Ct-Ng, [id number] [facility] Referral Reconciliation [facility] Chart Review OFFICE/OUTPATIENT VISIT, EST CBC With Differential/Platelet-36750 Oct ROUTINE VENIPUNCTURE Comp. Metabolic Panel [phone] Hgb A1c with eAG Estimation-71326 TSH-11134 PREV VISIT, EST, AGE 40-64 OFFICE/OUTPATIENT VISIT, EST CBC With Differential/Platelet-99087 Sep ROUTINE VENIPUNCTURE Comp. Metabolic Panel [id number] Hgb A1c with eAG Estimation-[id number] Panel [id number] TSH-[id number] Advance Directives Directive Yes / No Effective Date File Name No Information Encounters Encounter Description Practice Location Reason(s) For Visit Diagnoses Date Provider Providers Copied on Encounter [facility], [address], [place], [place], [id number], [place] tel: [facility] [place] No Information 8 Osuji Nonyerem. [address], [place], [address], [place]. tel: [phone] [facility], [address] [facility], [place], [place], [id number], [place] tel: [facility] [place] Abnormal mammogram 7 [facility] Social Science Analyst. [address] [place], [address], [place]. tel: [phone] Consulting Provider: Vannesa Groves ams, [place]. OFFICE/OUTPA TIENT VISIT, EST [facility], [address], [place], [place], [id number], [place] tel: [facility] [place] colon cancer screen (chief complaint) hypertensi on (chief complaint) pap test (chief complaint) mammogram (chief complaint) Encounter for screening for respiratory tuberculosisBod y mass index (BMI) 40.0-44.9, adultCervical cancer screeningOther screening mammogramColon cancer screeningBorder line systolic HTN 7 Osuji Nonyerem. [address], [place], [address], [place]. tel: [phone] [facility], [address], [place], [place], [id number], [place] tel: [facility] [place] No Information 7 [facility] Nurses. [address] [place], [address], [place]. tel: [phone] Consulting Provider: Shireen Vivar LVN. OFFICE/OUTPA TIENT VISIT, EST [facility], [address] [place], [id number], tel: [facility] General follow up (chief complaint) hypertensi on (chief complaint) diabetes/t hyroid screen (chief complaint) mammogram (chief complaint) Body mass index (BMI) 38.0-38.9, adultBorderline systolic HTNScreening for diabetes mellitusScreeni ng for thyroid disorderOther screening mammogram 7 Osuji Nonyerem. [facility] [place], [facility], [place]. tel: [phone] PREV VISIT, EST, AGE 40-64 [facility], [facility] [place], [id number], tel: Osmin Hoyt No Information 6 Osuji Nonyerem. [facility] [place], [facility], . tel: [phone] OFFICE/OUTPA TIENT VISIT, EST [facility], [facility] [address], [place], [place], [id number], tel: [facility] [place] Physical (chief complaint) preventive exam (chief complaint) rash (chief complaint) BP check (chief complaint) Body mass index (BMI) 40.0-44.9, adultEncounter for preventative adult health care exam with abnormal findingsScreeni ng for diabetes mellitusScreeni ng for thyroid disorderElevate d blood-pressure reading, without diagnosis of hypertensionPso riasis 6 Osuji Nonyerem. [facility] [place], [facility], [place]. tel: [phone] Family History Family Member Type Diagnosis Age At Onset No Information Payers Payer name Insurance type Covered constitution party ID Authoriza tion(s) SELF PAY Category C [id number] Social History Type Description Quantity Date Captured [...] due Goal Colonoscopy. Due on due Goal MMR Vaccine. Due on due Goal Flu Vaccine. Due [...] Physical Instructions Date Instruction Additional Infor tess referral in chart Related to Col on cancer screening DASH DIET/LOW SALT D IET encouraged. BP goal <140/<90. Continue medications but dose increased to amlodipine 10 mg PO QD. Related to Borderline systolic HTN D and E; goal BMI<25 Counseled regarding [...] to Body mass index (BMI) 40.0-44.9, adult check labs and HIV t est today. aspirin daily encouraged. deferred. pap smear/mammogram next clinic visit Related to Encounter for preventative adult health care exam with abnormal findings A1c today... Related to Robert camacho for diabetes mellitus Dietary management e ducation, guidance, and counseling Related to Body mass index (BMI) 40.0-44.9, adult Giving encouragement to exercise Related to Body mass index (BMI) 40.0-44.9, adult Assessments Type Assessment Date No Information
--- OUTSIDE RECORDS SUMMARY | 2024-07-08 09:10 | XMS_ITS | Clinical Summary ---
Author Organization [address] [facility] Address [address] [place] [address] Phone Care Team Providers Care Accounts Receivable Associate Name Role Phone Shireen Stout MD Primary Care Pro vider Allergies Active Allergy Reactions Criticality Noted Date Comments Jimmy Inhibitors 11/02/2023 Apple 11/02/2023 Romero 11/02/2023 Plumas (Prunus Persica) 11/02/2023 Peanut 11/02/2023 Medications albuterol [...] Take 1 Tablet by mouth daily. Active budesonide-formote roL (SYMBICORT) 160-4.5 mcg/actuation inhaler Inhale 2 Puffs [...] 1 Capsule by mouth at bedtime. Active lidocaine (LIDODERM) 5 % patchIndications:D iabetic mononeuropathy simplex (CMS/HCC),Arthriti s of both ankles Apply 1 patch topically 1 (one) time each day. Remove & discard patch within 12 hours or as directed by . 30 each 2 5 09/17/19 25 Active diclofenac (Voltaren Arthritis Pain) 1 % topical gel Apply 4 g topically 2 (two) times a day. 240 g 1 5 08/18/19 25 Active ammonium lactate (AMLACTIN) 12 % cream Apply topically if needed for dry skin. 770 g 5 06/19/19 26 Active Encounters Date Type Department Care Team Description 06/18/2024 11:00 AM EDT Office Visit Orthopedic Surgery - [address] [phone] Herson Fitzgerald, DPM Diabetic mononeuropathy simplex (CMS/HCC) (Primary Dx); Arthritis of both ankles; Dermatophytosis of nail; Pain in toe of right foot; Pain in toe of left foot; Type II diabetes mellitus with peripheral circulatory disorder (CMS/HCC); Metatarsalgia of both feet from Last 3 Months Immunizations Name Administration Dates Next Due COVID-19 [...] - - Weight 79.8 kg (176 lb) 06/18/2024 10:56 AM EDT Height 154.9 cm (5' 0.98 ) 06/18/2024 10:56 AM E DT Body Mass Index 33.27 06/18/2024 10:56 AM EDT Plan of Treatment Upcoming Encounters Date Type Department Care Team (Late st Contact Info) Description 09/18/2024 9:00 AM EDT Office Visit Orthopedic Surgery - [place] [address] [phone] Herson Fitzgerald, DPM [address] [address] Health Maintenance Due Date Last Done Comments Breast Cancer Screening 1960 Diabetes: Annual GFR (Glomerular Filtration Rate) 1958 Diabetes: Annual Foot Exam 1968 Diabetes: Annual Retina Eye Exam 1968 Colorectal Cancer Screening: Colonoscopy 11/02/2023 Osteoporosis Screening (Bone Density Screening) 11/02/2023 Social Influencers of Health Screening 11/02/2023 Falls Risk Assessment 11/30/2023 Diabetes: Annual Urine Albumin-Creatinine Ratio (uACR) 06/18/2024 Hypertension/CHF/CAD Annual BMP Blood Test 06/18/2024 Diabetes: Blood Sugar Control Test (HGBA1C) 09/02/2024 03/05/2024 Depression Screening 03/05/2025 03/05/2024 Cervical Cancer Screening: Pap Smear 02/19/2026 02/19/2023 Cholesterol Screening (Lipid Panel) 02/27/2029 02/28/2024 DTaP,Tdap,and Td Vaccines (5 - Td or Tdap) 10/25/2032 10/25/2022, 12/29/2011, 05/18/2003, Additional history exists Hepatitis A Vaccines Completed 05/15/2008, 08/29/19 08 Hepatitis B Vaccines Completed 05/15/2008, 12/06/2007, 08/29/2007 Zoster Vaccines Completed 06/14/2020, 04/05/2020 Pneumococcal Vaccine: 50+ Years Completed 05/02/2022, 12/29/2008 Pneumococcal Vaccine: Pediatrics (0 to 5 Years) and At-Risk Patients (6 to 64 Years) Completed 05/02/2022, 12/29/2008 RSV Immunization Patients 60+ Years Old Completed 11/15/2023 Hepatitis C Screening Completed 02/28/2024 [...] to complete this topic RSV Immunization Patients Under 20 months Aged Out No longer eligible based on patient's age to complete this topic Varicella Vaccines Aged Out No longer eligible based on patient's age to complete this topic Insurance [place]ICA[place] - [place] Care Teams Accounts Receivable Associate Relationship Specialty Start Date End Date Shireen Stout MD [address] [facility] [address] [place] [phone] PCP - General 08/16/23
[2024-07-08 09:12] VITALS: BP 114/44; PULSE 75; O2SAT 91; BMI 33.1
--- NOTE | 2024-07-08 09:12 | A.OFFVIS_ITS ---
Vital Signs 07/08/24 09:12 Height 5 ft 2 in Weight 181 lb BMI 33.1 BP 114/44 L Blood Pressure Location Lt brachial Position Sitting Pulse 75 Pulse Source Pulse Oximeter Pulse Oximetry (%) 91 L Oxygen Delivery Method Room Air Intake Visit Reasons: asthma Print Shop Assistant Required: No Allergies cornflower [Cornflower] Allergy (Unknown, Verified 07/08/24 09:14) ITCHY EYES/HIVES peach [PEACH] Allergy (Unknown, Verified 07/08/24:14) NATURAL FRUIT - MOUTH ITCHES cornell [cherries] Allergy (Verified 07/08/24 09:14) Unknown No Known Drug Allergies Allergy (Verified 07/08/24:14) none apples Allergy (Unknown, Uncoded 07/08/24:14) Unknown peanut Allergy (Unknown, Uncoded 07/08/24:14) Unknown HPI Comments Details: The patient is a 63 year woman with a known history of cirrhosis and asthma presenting with worsening shortness of breath. The patient states that for the last year or so she has been getting progressively more short of breath. She also has episodes when she is laying flat and she gets short of breath. She can also wake up short of breath from a sound sleep. The patient also has snoring and she does have an elevated Teton score of 11/24. The patient should have a sleep study in the near future. In the meantime we did taken for a walking oximetry the patient did desaturate down to 90%. She was qualify for oxygen. Therefore, will perform an overnight oximetry to see the patient needs oxygen at nighttime. The patient also is having issues with anemia. Since 2019 she has decreased her hemoglobin by 4 g. I explained the patient that with this decrease hemoglobin that she may have increased work of breathing based on her oxygen carrying capacity. She was recently started on medications for anemia as per the patient. Patient also has noticed lower extremity edema. She also has a very distended abdomen. Sent clear how much is ascites but explained to the patient that with her abdominal pressure being so elevated and her bed so firm makes it difficult for her lungs to expand. As far as imaging she did have a CT scan of the chest that we personally reviewed from November 2022. She does have pulmonary nodules that need follow-up. She is an ex-smoker so therefore more recent to follow as she is considered high risk for cancer. It was given a rads 3 score. This is likely because she is on the lung cancer screening program. The patient had previous CT scans that we also reviewed from back in 2019 which she had the same degree of scarring at the bases. Therefore the basilar scarring that she has in her current CT scan is likely result of a previous infection. She states that she was hospitalized with bad pneumonia back in 2012. 03/05/2023 the patient is here for pulmonary follow-up visit. The patient complains of dyspnea on exertion. Seems to be getting worse. Moderate with activity. Does get better with rest. The patient did undergo a pulmonary function study which we personally reviewed. She had a significantly low diffusing capacity of 27%. Therefore we had her undergo a 6 minutes walk test and the patient did desaturate down to 87%. She did well on 2 L pulse. Will start her on portable oxygen. She also should be using oxygen at nighttime. We have requested an overnight oximetry but she has not had had as of yet. The patient also underwent an echocardiogram. Appears to have a low EF 45-50%. She she continue with current respiratory therapy. Will go ahead and start her oxygen. 06/11/2023 the patient is here for a pulmonary follow-up visit. Dyspnea. The oxygen. She does use the oxygen with activity and also sleep. She did not have the overnight test time but does okay because she does need the oxygen with sleep. The patient however did not get the right tanks. She has 2 L continuous. She should be on 2 L pulse. The bigger tanks have been difficult for her to carry. I did call her [employer] company in order to make sure that they provide her with the right conserving device tanks. She does well with a 2 L pulse conserving device tanks we can also consider a portable oxygen concentrator for better portability in the future. She continues to take her cardioprotective medications. Scan of the chest was through the lung cancer screening program back in November 2023. She did have low lung volumes with some atelectasis along with from pulmonary nodules. The patient has follow-up CT scan in November 2023. Will plan to follow-up with her after that. For now she will continue with current respiratory therapy. If she has any issues prior to that she will call for an earlier assessment. 02/08/2024 the patient is here for pulmonary follow-up visit. She continues to use the oxygen good effect. However, his extremely heavy. Her daughter has to help her with the oxygen tanks. The patient is better portability. A portable oxygen concentrator will be better for her. she had a previous titration study with a conserving device and she did very well on 2 L pulse. Therefore request a POC at 2 L pulse with activity. She can also use it for sleep. She continues use her respiratory therapy. Her last CT scan was over the summer demonstrating no significant changes. Although, still waiting for the final read. She will continue with lung cancer screening program. The patient follow- up in the spring. If any issues between now and then she will call for an earlier assessment. 07/08/2024 the patient is here for pulmonary follow-up visit. She continues have multiple complaints. Is very achy has some chest discomfort as well as abdominal discomfort in her extremities also uncomfortable. She also complains of shortness of breath with activity. She does get relief with the oxygen. She is participating in the lung cancer screening program. Last CT scan was back in January 2024 demonstrating no significant abnormalities except some calcifications of the coronary arteries. She will be getting another CAT scan in the fall. In the meantime she does have issues with the liver. Apparently she does have some liver cirrhosis and does appear to have a distended abdomen. The patient unfortunately still drinking alcohol. For now with her chest discomfort will have her get an EKG. She does not have any chest discomfort right now. If she does have any recurrent chest discomfort she should seek immediate medical advice. [facility] Medical History CAD (coronary artery disease) Dyspnea Asthma-COPD overlap syndrome Alcohol use History of methadone use Personal history of nicotine dependence Asthma Obesity (BMI 30-39.9) GERD (gastroesophageal reflux disease) Cirrhosis Vitamin D deficiency Hypertension Dyslipidemia Non-toxic multinodular goiter Osteoporosis Diabetic 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 with type 2 diabetes mellitus care home (current) use of insulin Diabetes type 2, uncontrolled Surgical History Status post biopsy of thyroid gland History of colonoscopy (~2016) Hx of cataract extraction History of esophagogastroduodenoscopy (EGD) (~2020) Hx of cardiac cath (~12/2015) Hx of cholecystectomy (~1980) History of bladder surgery (~06/2019) Family History Father Esophageal cancer Mother Diabetes mellitus HTN (hypertension) Social History Household Members: Spouse Alcohol intake: current Alcohol intake frequency: 3 or more drinks per day Alcohol type: beer Patient Tobacco Use Status: Former Tobacco user Tobacco use type: Cigarette Years Smoked: Onset 27, 2ppd x 24yrs, 48pyh, quit 11/2012 Advance Directives Date on File: 11/18/15 Review of Systems Const Reports as per HPI, Reports daytime sleepiness and Reports difficulty sleeping ENT Reports no additional complaints Card Denies chest pain, Denies chest pain at rest, Denies chest pain with activity and Reports dyspnea on exertion Resp Denies chest congestion, Reports cough, Reports dyspnea on exertion and Denies wheezing GI Reports as per HPI and Reports bloating Musc Reports myalgias Skin/Breast Reports pruritus and Denies wounds Neuro Reports no additional complaints Psych Denies no additional complaints Neftali/Lymph Denies lymphadenopathy Aller/Immun Denies wheezing Physical Exam Vital Signs: Last Vital Signs Pulse 75 07/08/24 09:12 BP 114/44 L 07/08/24 09:12 Pulse Ox 91 L 07/08/24 09:12 Oxygen Delivery Method Room Air 07/08/24 09:12 BMI result Body Mass Index 33.1 Const General: healthy appearing and no acute distress Orientation/consciousness: patient oriented x3 HEENT Ears: hearing grossly normal bilaterally Eyes Pupils: Equal, round and reactive pupils present Neck Neck: Yes normal visual inspection Chest Chest palpation & inspection: normal inspection of the chest Resp Effort & Inspection: normal respiratory effort Auscultation: diminished lung sounds Cardio Rate: regular rate Rhythm: regular rhythm Heart sounds: S1 normal heart sound present and S2 normal heart sound present GI Inspection: Yes distended Auscultation: normal bowel sounds Skin General skin exam: no rashes or lesions noted Neuro General: patient oriented x3, gait normal and moves all extremities Cranial nerves: Yes Equal, round and reactive pupils present Psych Appearance: grossly normal Mental Status: mental status grossly normal Assessment & Plan Assessment & Plan (1) Asthma-COPD overlap syndrome: Code(s): J44.9 - Chronic obstructive pulmonary disease, unspecified Category: Medical (2) CHERISE (obstructive sleep apnea): Code(s): G47.33 - Obstructive sleep apnea (adult) (pediatric) Category: Medical (3) Dyspnea: Code(s): R06.00 - Dyspnea, unspecified Category: Medical Qualifiers: Dyspnea type: dyspnea on exertion Qualified Code(s): R06.09 - Other forms of dyspnea Plan continue symbicort NANETTE as needed Oxygen 2L/pulse with activity and 2L/continues with sleep. LDCT 01/2025 EKG Consider taking baby ASA until she f/u with PCP or Cardiology benzinates as needed for cough F/U 6 months Orders: Orders ECG 12 lead EKG Today J44.9 - Chronic obstructive pulmonary disease, unspecified Medications: New aspirin 81 mg PO DAILY 30 tabs 1RF 30 days benzonatate 200 mg PO BID PRN 60 caps 2RF cough 30 days Coding Level of Care Code Est Pt Level 4 (36919) Complex EM visit Add On G2211 Diagnoses Asthma-COPD overlap syndrome J44.9 CHERISE (obstructive sleep apnea) G47.33 Dyspnea on exertion R06.09 Dyspnea type: dyspnea on exertion Time Spent (min) 17
== END 2024-07-08 09:37 | disposition home or self-care (01) ==
LOC: HO.HPS 08:46
PROVIDERS: PCP Student in an Organized Health Care Education/Training Program; Visit Provider Hospitalist
DX: J44.9 Chronic obstructive pulmonary disease, unspecified (principal); G47.33 Obstructive sleep apnea (adult) (pediatric); R06.09 Other forms of dyspnea
CPT/HCPCS: 99214; G2211

== ENCOUNTER → 2024-07-08 08:46 | Outpatient (BNVA) | payer OTHER, SELFPAY | PROVIDERS: PCP Student in an Organized Health Care Education/Training Program; Visit Provider Hospitalist | DX: J44.9 Chronic obstructive pulmonary disease, unspecified (principal); G47.33 Obstructive sleep apnea (adult) (pediatric); R06.09 Other forms of dyspnea | CPT/HCPCS: 99212 ==

== ENCOUNTER 2024-07-17 09:17 | Outpatient (AMB) | payer OTHER, SELFPAY ==
--- NOTE | 2024-07-17 09:24 | MHC.OFFVIS ---
Vital Signs 07/17/24 09:26 Height 5 ft 2 in Weight 180 lb BMI 32.9 BP 111/64 Blood Pressure Location Lt brachial Position Sitting Pulse 94 Pulse Oximetry (%) 99 Oxygen Delivery Method Nasal Cannula Intake Visit Reasons: 4 month follow up Intake Note: Patient follow up for Chronic Constipation and US result. Patient cc: nauseas in the morning, occasional abdominal pain, abdominal bloating, burning sensation, swallowing discomfort with tablets, and constipation. Touch Up Painter Hand Required: No Accompanied by: Family/Other Allergies cornflower [Cornflower] Allergy (Unknown, Verified 07/17/24 09:24) ITCHY EYES/HIVES peach [PEACH] Allergy (Unknown, Verified 07/17/24 09:24) NATURAL FRUIT - MOUTH ITCHES cornell [cherries] Allergy (Verified 07/17/24 09:24) Unknown No Known Drug Allergies Allergy (Verified 07/17/24 09:24) none apples Allergy (Unknown, Uncoded 07/08/24 09:14) Unknown peanut Allergy (Unknown, Uncoded 07/08/24 09:14) Unknown Medication List - Last Reconciled 07/17/24 by Julissa Newberry MD acamprosate 666 mg PO TID albuterol sulfate 90 mcg/actuation (ProAir HFA) 2 puffs PO Q6H PRN aspirin 81 mg PO DAILY 30 days atorvastatin 40 mg PO BEDTIME benzonatate 200 mg PO BID PRN 30 days blood pressure test kit-large As directed blood sugar diagnostic (FreeStyle Test strips) 4 times a day blood-glucose meter (FreeStyle Neosho Lite kit) As directed budesonide-formoterol 160-4.5 mcg/actuation (Symbicort) 2 puffs PO calcium carbonate (Oyster Shell Calcium) 500 mg PO BID canagliflozin (Invokana) 300 mg PO QAM cetirizine 10 mg PO DAILY cholecalciferol (vitamin D3) 125 mcg PO QAM fenofibrate micronized 134 mg PO DAILY ferrous sulfate (FeroSul) 325 mg PO 3XW flash glucose scanning reader ([employer] Lakeisha 2 [place]) As directed flash glucose sensor (FreeStyle Lakeisha 2 Sensor kit) every 14 days folic acid 1 mg PO QAM gabapentin 100 mg PO BEDTIME insulin regular hum U-500 conc (Humulin R U-500 (Conc) Insulin Kwikpen) 250 units before breakfast ; 30 days lancets (FreeStyle Lancets) As directed lancets (TRUEplus Lancets) As directed linaclotide (Linzess) 145 mcg PO DAILY 90 days losartan 25 mg PO QAM mirabegron ER (Myrbetriq) 25 mg PO QAM nebulizers As directed nystatin-triamcinolone 100,000-0.1 unit/g-% 1 appl topical DAILY Oxygen Home Use As directed pantoprazole 20 mg PO DAILY pen needle, diabetic (BD Ultra-Fine Debbie Pen Needle) As directed once a day sertraline (Zoloft) 50 mg PO DAILY thiamine HCl (vitamin B1) 100 mg PO QAM trazodone 100 mg PO BEDTIME PRN HPI HPI 4 month follow up: Details: GI CLINIC VISIT FOR THIS 63-YEAR-OLD CROATIAN-SPEAKING FEMALE FOR FOLLOW-UP OF CIRRHOSIS AND GERD. Pt is on Home O2 at 2 litres/min by NC. TODAY'S VISIT Accompanied by her daughter in law, Machelle who helped interpret for the patient Patient cc: Patient cc: nauseas in the morning, occasional abdominal pain, abdominal bloating, burning sensation, swallowing discomfort with tablets, and constipation. Abd US results reviewed. Doing OK - can have normal stools alternating with hard stools Taking Linzess intermittently - since she can have intermittent diarrhea with fecal incontinence Wears a diaper intermittently ?PAST VISIT: Notes mild abdominal pain sometimes - always in the morning When she wakes up she has nausea and abdominal pain sometimes Pain can last for an hour - gets better after she drinks coffee Notes intermittent constipation - takes plums with good results. Has a BM daily consisting of hard stools and sometimes can skip 1- 2 days. Drinks 2-3 beers a day ( has cut back from 7 beers daily) Constipation is better with medications - can have a BM 3 times a day and sometimes skip a day Can sometimes note abdominal bloating and distension Pt denies any change in her symptoms Complains of chronic upper abdominal pain and abdominal bloating Belly swells up and she feels full after eating Chronic constipation and sometimes she can go 5 days without a BM Pt is taking a medication for constipation and does not know the name (advised to check the medication and call back with the name when she gets home today) EGD and bx results reviewed with the patient Notes partial improvement in swallowing after EGD with balloon dilation Complains of dysphagia to solids - food gets stuck in the lower chest. Dysphagia with all meals. Swallowing is painful. Drinking 3 beers a day. ?? ? Doing so so - notes abdominal bloating, gas and diarrhea Requests an EGD. Denies heartburn since she is taking medications - Pepcid 10 mg twice a day. ? (Omeprazole was stopped due to concern for side effects of diarrhea). ? Pt admits to drinking 2 beers a day and trying to cut back. ? Rib pain has improved only hurts occasionally. ? She does not take medications as prescribed. Sometimes she forgets LABS IN [facility]:?12/11/19 LFTS SHOWED AST OF 98, ALT OF 54, ALBUMIN 4.3 05/29 NORMAL CBC WITH PLATELET COUNT OF 218, INR 1, NORMAL BILIRUBIN WITH AST OF 43, ALT 72, ALKALINE PHOSPHATASE 74 ? 09/2017 HEPATITIS-B ANTIBODY WAS POSITIVE, NO OTHER HEPATITIS SEROLOGIES AVAILABLE IN [facility]. IMAGING STUDIES: 10/10/23 ABD US SHOWED: 1. Coarse and heterogeneous hepatic echotexture, increased in echogenicity, characteristic of hepatocellular disease with substantially limited visualization. Hepatomegaly, right hepatic lobe measures 17.9 cm and left hepatic lobe measures 17.0 cm. 2. Gallbladder surgically absent. 03/26/[address] SCAN SHOWED: Cirrhosis without evidence of hepatocellular carcinoma. Portal hypertension, patent portal vein, mild splenomegaly. No ascites. 09/2021 BARIUM SWALLOW - normal 02/16/21 ABD US SHOWED: 1. No sonographic evidence of focal liver lesion. 2. Multiple presumed hemangioma within the spleen, the largest measures 1.4 cm, appears stable since 12/18/2018. 04/2020 abdominal ultrasound with elastography showed:Hepatic steatosis without focal lesion. There is hepatopedal flow seen in the portal vein.Visualized pancreas, gallbladder and the right kidney is unremarkable. On Elastography there is mild to moderate fibrosis stage F2 - F3? ENDOSCOPIC STUDIES: 02/25/21 EGD SHOWED: ESOPHAGUS: A 3-4 mm benign appearing nodule in the mid esophagus at 30 cms - biopsied. GE junction at 38 cms.? Tortuous esophagus with increased tertiary contractions without stricture or ring - empiric balloon dilation was performed with a 19 mm CRE balloon x 60 sec.? Biopsies were obtained from proximal esophagus to check for EOE No esophagitis or Bui's. STOMACH: Moderate non-erosive portal gastropathy involving the gastric body and fundus. Mild gastric erythema. Biopsies were obtained.? Gastric polyp. DUODENUM: Normal - biopsies were negative for celiac sprue. B. Gastric antrum, biopsy: -Mild reactive gastropathy with ectatic mucosal vessels and focal minimal chronic inflammation; negative for H. pylori. -No active inflammation.C. Gastric polyp, biopsy: -Fundic gland polyp; negative for H. pylori. -No active inflammation.D. Esophagus, mid, nodule, biopsy: -Benign squamous mucosa with focal intraepithelial neutrophils and eosinophils, consistent with acute esophagitis; negative for fungi.? -No columnar mucosa present.E. Esophagus, proximal, biopsy: -Squamous mucosa with no specific change.? -No evidence of eosinophilic esophagitis. 05/2011 EGD showed hemorrhagic gastritis and no esophageal varices were seen ? 04/2016 colonoscopy was performed by Dr. Hutchinson and showed rectosigmoid region appeared thickened with a few patchy areas of flat hyperplastic appearing tissue. ? 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 Diabetes type 2, uncontrolled Surgical History Status post biopsy of thyroid gland History of colonoscopy (~2016) Hx of cataract extraction History of esophagogastroduodenoscopy (EGD) (~2020) Hx of cardiac cath (~12/2015) Hx of cholecystectomy (~1980) History of bladder surgery (~06/2019) Family History Father Esophageal cancer Mother Diabetes mellitus HTN (hypertension) Social History Household Members: Spouse Alcohol intake: current Alcohol intake frequency: 3 or more drinks per day Alcohol type: beer Patient Tobacco Use Status: Former Tobacco user Tobacco use type: Cigarette Years Smoked: Onset 27, 2ppd x 24yrs, 48pyh, quit 11/2012 Advance Directives Date on File: 11/18/15 Review of Systems Const All systems reviewed & are unremarkable except as noted in HPI and below Physical Exam Vital Signs: Last Vital Signs Pulse 94 07/17/24 09:26 BP 111/64 07/17/24 09:26 Pulse Ox 99 07/17/24 09:26 Oxygen Delivery Method Nasal Cannula 07/17/24 09:26 BMI result Body Mass Index 32.9 Const General: healthy appearing and no acute distress Orientation/consciousness: patient oriented x3 HEENT Ears: hearing grossly normal bilaterally Eyes Pupils: Equal, round and reactive pupils present Neck Neck: Yes normal visual inspection Chest Chest palpation & inspection: normal inspection of the chest Resp Effort & Inspection: normal respiratory effort Auscultation: diminished lung sounds Cardio Rate: regular rate Rhythm: regular rhythm Heart sounds: S1 normal heart sound present and S2 normal heart sound present GI Inspection: Yes distended Palpation (GI): nontender Auscultation: normal bowel sounds Skin General skin exam: no rashes or lesions noted Neuro General: patient oriented x3, gait normal and moves all extremities Cranial nerves: Yes Equal, round and reactive pupils present Psych Appearance: grossly normal Mental Status: mental status grossly normal Assessment & Plan Assessment & Plan (1) Cirrhosis: Comment: (Alcohol-related liver cirrhosis) Code(s): K74.60 - Unspecified cirrhosis of liver Category: Medical (2) GERD (gastroesophageal reflux disease): Code(s): K21.9 - Gastro-esophageal reflux disease without esophagitis Category: Medical (3) Dysphagia, pharyngoesophageal phase: Code(s): R13.14 - Dysphagia, pharyngoesophageal phase Category: Medical (4) Colon cancer screening: Comment: 2016 Colonoscopy was performed by Dr Hutchinson and showed thickened mucosa at 2 cms in the rectum - hyperplastic on bx Repeat colon advised in 10 yrs (would recommend to discontinue colon cancer screening given multiple comorbidities) Code(s): Z12.11 - Encounter for screening for malignant neoplasm of colon Category: Medical (5) Chronic upper abdominal pain: Code(s): R10.10 - Upper abdominal pain, unspecified; G89.29 - Other chronic pain Category: Medical (6) Chronic constipation: Code(s): K59.09 - Other constipation Category: Medical Plan 63 YF followed in GI for GERD and alcohol-related liver disease - of note pt has a normal platelet count, INR and albumin level. Liver fibrosis score of 0.88 and Liver fibrosis stage of F4 She is trying to cut back on her alcohol intake. Pt was reminded to have labs checked (ordered during her last TV appt).? Abd US with with elastography showed hepatic steatosis and mild to moderate fibrosis stage F2 - F3?. Patient was advised to schedule a barium swallow for evaluation of dysphagia 02/15/23 Complains of chronic upper abdominal pain and abdominal bloating Belly swells up and she feels full after eating Pt advised to schedule an Abd CT scan with contrast for evaluation of abd pain and for HCC surveillance 05/24/23 She was prescribed Linzess 145 mcg daily for constipation 10/04/23 Notes mild abdominal pain sometimes - always in the morning When she wakes up she has nausea and abdominal pain sometimes Pain can last for an hour - gets better after she drinks coffee Constipation is better with medications - can have a BM 3 times a day and sometimes skip a day Can sometimes note abdominal bloating and distension 04/03/24 Abd US for FU of MASH/early cirrhosis (MELDNa score of 6) showed: Hepatomegaly, 19.1 cm. Diffusely heterogeneous and coarse hepatic echotexture with lobulated and nodular hepatic contour severely limits visualization and is compatible with provided history of cirrhosis. 2. Gallbladder surgically absent. 07/17/24 Taking Linzess intermittently - since she can have intermittent diarrhea with fecal incontinence Advised to decrease Linzess to 72 mcg daily FU in 3 months - FU of cirrhosis and chronic constipation Medications: New linaclotide (Linzess) 72 mcg PO QAM 30 days 30 caps 3RF K59.09 - Other constipation Refilled linaclotide (Linzess) 145 mcg PO DAILY 90 days 90 caps 1RF K59.09 - Other constipation Coding Level of Care Code Est Pt Level 4 (90077) Diagnoses Cirrhosis K74.60 GERD (gastroesophageal reflux disease) K21.9 Dysphagia, pharyngoesophageal phase R13.14 Colon cancer screening Z12.11 Chronic upper abdominal pain R10.10; G89.29 Chronic constipation K59.09 Time Spent (min) 22
[2024-07-17 09:26] VITALS: BP 111/64; PULSE 94; O2SAT 99; BMI 32.9
--- OUTSIDE RECORDS SUMMARY | 2024-07-17 10:03 | XMS_ITS | Encounter Summary ---
Author Organization [employer] Address [address] [place] [address] Care Team Providers Care Windows Deployment Technician Name Role Phone Shireen Stout MD Primary Care Pro vider Reason for Visit * Reason Comments Med Refill Encounter Details Date Type Department Care Team ([facility] st Contact Info) Description 01/16/2023 Refill [facility] [address] [place], [place] [phone] Shireen Stout MD [address] [place] [address] Social History Tobacco Use Types Packs/Day Years [...] Care Team (Late st Contact Info) Description 08/21/2024 9:30 AM EDT Office Visit [facility] [address] [place] [phone] Shireen Stout MD [address] [place] [phone] documented as of this encounter Visit Diagnoses Not on filedocumented in this encounter Additional Health Concerns Assessment Noted Time PHQ-9 Depression Total Score: 5 12/16/19 23 2:02 PM EDT documented as of this encounter Care Teams Windows Deployment Technician Relationship Specialty Start Date End Date Shireen Stout MD [address] [place] [id number] PCP - General Internal Medicine 09/08/22 documented as of this encounter
--- OUTSIDE RECORDS SUMMARY | 2024-07-17 10:03 | XMS_ITS | Encounter Summary ---
Author Organization [employer] Address [address] [facility] 7t [place] [address] Care Team Providers Care Child Support Case Officer Name Role Phone Shireen Stout MD Primary Care Pro vider Reason for Visit * Reason Comments Med Refill Encounter Details Date Type Department Care Team ([facility] st Contact Info) Description 01/16/2023 Refill [facility] PEDS [address] [place], [place] [phone] Shireen Stout MD [address] [place] [address] Social History Tobacco Use Types Packs/Day Years [...] Description 08/21/2024 9:30 AM EDT Office Visit [facility] MEDICINE [address] [place] [phone] Shireen Stout MD [address] [place] [phone] documented as of this encounter Visit Diagnoses Not on filedocumented in this encounter Additional Health Concerns Assessment Noted Time PHQ-9 Depression Total Score: 5 12/16/19 23 2:02 PM EDT documented as of this encounter Care Teams Child Support Case Officer Relationship Specialty Start Date End Date Shireen Stout MD [address] [place] [phone] PCP - General Internal Medicine 09/08/22 documented as of this encounter
--- OUTSIDE RECORDS SUMMARY | 2024-07-17 10:03 | XMS_ITS | Encounter Summary ---
Author Organization [employer] Address [address] [place] [address] [address]t [place] [address] Care Team Providers Care Sales Branch Manager Name Role Phone Shireen Stout MD Primary Care Pro vider Reason for Visit * Reason Comments Med Refill Encounter Details Date Type Department Care Team ([facility] st Contact Info) Description 01/16/2023 Refill [facility] MED[facility] [address] [place] [address] Tonja Guzmán FNP [address] [place] [address] Dept [place] [address] Social History Tobacco Use Types Packs/Day Years [...] Description 08/21/2024 9:30 AM EDT Office Visit [facility] [address] [place] [phone] Shireen Stout MD [address] [place] [phone] documented as of this encounter Visit Diagnoses Not on filedocumented in this encounter Additional Health Concerns Assessment Noted Time PHQ-9 Depression Total Score: 5 12/16/19 23 2:02 PM EDT documented as of this encounter Care Teams Sales Branch Manager Relationship Specialty Start Date End Date Shireen Stout MD [address] [place] [phone] PCP - General Internal Medicine 09/08/22 documented as of this encounter
--- OUTSIDE RECORDS SUMMARY | 2024-07-17 10:04 | XMS_ITS | Clinical Summary ---
Author Organization [facility] Address [address] [place] [address] Phone Care Team Providers Care Antique Furniture Repairer Name Role Phone Shireen Stout MD Primary Care Pro vider Allergies Active Allergy Reactions Criticality Noted Date Comments Jimmy Inhibitors 11/02/2023 Apple 11/02/2023 Romero 11/02/2023 [place] (Prunus Persica) 11/02/2023 Peanut 11/02/2023 Medications albuterol [...] (LIDODERM) 5 % patchIndications:D iabetic mononeuropathy simplex (CMS/HCC V24, CMS/HCC V28),Arthritis of both ankles Apply 1 patch topically [...] AM EDT Office Visit Orthopedic Surgery - [address] [phone] Herson Fitzgerald, DPM Diabetic mononeuropathy simplex (CMS/HCC V24, CMS/HCC V28) (Primary Dx); Arthritis of both ankles; Dermatophytosis of nail; Pain in toe of right foot; Pain in toe of left foot; Type II diabetes mellitus with peripheral circulatory disorder (CMS/HCC V24, CMS/HCC V28); Metatarsalgia of both feet from Last 3 Months Immunizations Name Administration Dates Next Due COVID-19 (Moderna/Spikevax) 12yo and older 10/25 Medical History Medical History Date Comments DM (diabetes mellitus), type 2 (CMS/HCC V24, CMS/HCC V28) DX:DM (diabetes mellitus), t ype 2 (HCC) Alcoholic cirrhosis (CMS/HCC V24, CMS/HCC V28) DX:Alcoholic cirrhosis (HCC) Other seasonal allergic rhinitis DX:Other seasonal allergic rhinitis Constipation DX:Constipation HTN (hypertension) DX:HTN (hyper tension) Pulmonary emphysema (CMS/HCC V24, CMS/HCC V28) DX:Pulmonary emphysema (HCC) Stage 2 chronic kidney disease [...] AM EDT Office Visit Orthopedic Surgery - [place] [address] [phone] Herson Fitzgerald, DPDina [address] [address] Health Maintenance Due Date Last Done Comments [...] 62 Years) Completed 05/02/2022, 12/29/2008 RSV Immunization Adult Patients Completed 11/15/2023 Hepatitis C Screening Completed 02/28/2024 [...] age to complete this topic Meningococcal B Vaccine Aged Out No l onger eligible based on patient's age to complete this topic RSV Immunization Patients Under 20 months Aged Out No longer eligible based on patient's age to complete this topic Varicella Vaccines Aged Out No longer eligible based on patient's age to complete this topic Insurance MEDICAID - [place] Care Teams Antique Furniture Repairer Relationship Specialty Start Date End Date Shireen Stout MD [address] [facility] [address] [place] [address] PCP - General 08/16/23
--- OUTSIDE RECORDS SUMMARY | 2024-07-17 10:04 | XMS_ITS | Encounter Summary ---
Author Organization [employer] Address [address] [facility] 7t [place] [address] Care Team Providers Care Barrel Roller Name Role Phone Shireen Stout MD Primary Care Pro vider Reason for Visit * Reason Comments Med Refill Encounter Details Date Type Department Care Team ([facility] st Contact Info) Description 10/17/2023 Refill [facility] [address] [place] [address] Bruna Yusuf FNP [address] [place] [address] Social History Tobacco Use Types Packs/Day Years [...] Description 08/21/2024 9:30 AM EDT Office Visit [facility] MED[facility]INE [address] [place] [address] Shireen Stout MD [address] [place] [phone] documented as of this encounter Visit Diagnoses Not on filedocumented in this encounter Additional Health Concerns Assessment Noted Time PHQ-9 Depression Total Score: 5 12/16/19 23 2:02 PM EDT documented as of this encounter Care Teams Barrel Roller Relationship Specialty Start Date End Date Shireen Stout MD [address] [place] [phone] PCP - General Internal Medicine 09/08/22 documented as of this encounter
--- OUTSIDE RECORDS SUMMARY | 2024-07-17 10:04 | XMS_ITS | Clinical Summary ---
Author Organization [facility] Address [address] [place] [address] [address] [place] [address] Care Team Providers Care Pantographer Name Role Phone Shireen Stout MD Primary [...] DO NOT BREAK, CRUSH, DISSOLVE OR CHEW 023 Active EPINEPHrine (Epipen) 0.3 MG/0.3ML injection syringe [...] 023 Active ammonium lactate (Amlactin) 12 % creamIndications :Thyroid nodule,Keratosis pilaris Apply topically every 12 (twelve) hours. 140 g 11 023 Active clobetasol (Temovate) 0.05 % ointment APPLY TO THE AFFECTED AREA(S) TWICE DAILY 30 g 024 Active albuterol 108 (90 Base) MCG/ACT inhalerIndicatio ns:Seasonal allergic rhinitis, unspecified trigger Inhale 2 puffs every 6 (six) hours if needed for wheezing. 18 g 2 024 Active Linzess 145 MCG capsule Take 145 mcg by mouth in the morning. Active budesonide-formo terol (Symbicort) 160-4.5 MCG/ACT inhaler Inhale 2 puffs in the morning and at bedtime. Rinse mouth with water after use to reduce aftertaste and incidence of candidiasis. Do not swallow. Active ferrous sulfate (FeroSul) 325 (65 Fe) MG tablet Take 1 tablet (325 mg) by mouth 3 (three) times a week. 90 tablet Active sodium chloride (Lopeno Nasal Shepherd) 0.65 % nasal spray Administer 1 spray into each nostril if needed for congestion. 30 mL 2 024 2024 Active naltrexone (Depade) 50 MG tabletIndication s:Alcohol use disorder, severe, dependence (CMS/HCC) Take 1 tablet (50 mg) by mouth Once per day. Please add to her blister packs 90 tablet 3 024 2024 Active clotrimazole (Lotrimin) 1 % vaginal creamIndications :Vulvovaginal Candidiasis Insert one applicator per vagina at bedtime for 7 nights 45 g 024 Active cetirizine (ZyrTEC) 10 MG tabletIndication s:Seasonal allergic rhinitis, unspecified trigger TAKE 1 TABLET BY MOUTH EVERY MORNING 90 tablet 1 024 Active ergocalciferol (Vitamin D2) 1.25 MG (88399 UT) capsule Take 1 capsule (1.25 mg) by mouth 1 (one) time per week. 4 capsule 5 024 Active Diclofenac Sodium 1 % gel Apply 1 Application topically if needed each day (pain in legs). 50 g 024 Active losartan (Cozaar) 25 MG tablet TAKE 1 TABLET BY MOUTH EVERY MORNING 90 tablet 1 024 Active pantoprazole (ProtoNix) 20 MG EC tabletIndication s:Dysphagia, unspecified type TAKE 1 TABLET BY MOUTH TWICE DAILY IN THE MORNING AND IN THE EVENING 180 tablet 1 024 Active sertraline (Zoloft) 50 MG tablet TAKE 1 TABLET BY MOUTH EVERY MORNING 30 tablet 5 024 Active traZODone (Desyrel) 100 MG tabletIndication s:Depressive disorder TAKE 2 TABLETS BY MOUTH EVERY DAY AT BEDTIME 60 tablet 5 024 Active atorvastatin (Lipitor) 40 MG tablet TAKE 1 TABLET BY MOUTH AT BEDTIME 90 tablet 1 025 Active fenofibrate micronized (Lofibra) 134 MG capsuleIndicatio ns:Mixed hyperlipidemia TAKE 1 CAPSULE BY MOUTH EVERY EVENING 90 capsule 1 025 Active gabapentin (Neurontin) 100 MG capsuleIndicatio ns:Diabetic peripheral neuropathy associated with type 2 diabetes mellitus (CMS/HCC) TAKE 2 CAPSULES BY MOUTH TWICE DAILY IN THE MORNING AND EVENING 120 capsule 025 Active thiamine (Vitamin B-1) 100 MG tablet TAKE 1 TABLET BY MOUTH EVERY MORNING 90 tablet 2 025 Active folic acid (Folvite) 1 MG tablet TAKE 1 TABLET BY MOUTH EVERY MORNING 90 tablet 2 025 Active Oyster Shell Calcium 500 MG tablet TAKE 1 TABLET BY MOUTH TWICE DAILY IN THE MORNING AND IN THE EVENING WITH MEALS 180 tablet 2 025 Active Oyster Shell Calcium 500 MG tablet TAKE 1 TABLET BY MOUTH TWICE DAILY IN THE MORNING AND IN THE EVENING WITH MEALS 180 tablet 2 024 2024 Discontinued(R eorder (will not trigger notification to Pharmacy)) gabapentin (Neurontin) 100 MG capsuleIndicatio ns:Diabetic peripheral neuropathy associated with type 2 diabetes mellitus (CMS/HCC) TAKE 2 CAPSULES BY MOUTH TWICE DAILY IN THE MORNING AND EVENING 120 capsule 024 2024 Discontinued thiamine (Vitamin B-1) 100 MG tablet TAKE 1 TABLET BY MOUTH EVERY MORNING 90 tablet 025 2024 Discontinued folic acid (Folvite) 1 MG tablet TAKE 1 TABLET BY MOUTH EVERY MORNING 90 tablet 025 2024 Discontinued Active Problems Problem Noted Date Diagnosed Date Alcoholic fibrosis and sclerosis of liver 2023 Vitamin D deficiency 03/05/2024 Skin lesions 03/05/2024 [...] -2.7-on tx already -vaccines: hepAx2,hepBx3-Immune , Covid 25s3-Aubfeomr 10/2022, g80f8-f/p 20 x1, tdap 2022 ,s/p zoster vaccinex2 [...] value of -2.7-on tx already -vaccines: hepAx2,hepBx3,covid 25m3-Ohxsihaq today, m92b6-x/p 20 x1, tdap 2012- today booster,s/p zoster vaccinex2 -labs x annual [...] associated w vascular etiology and rec for team psychologist referral -pt was tx already w keflex 500 BID x 5 days at last apt w no change in rash -advised pt to raise leg -referred to team psychologist -pt using fungal cream chronically px by vascular Assessment & Plan (10/25/2022 1:41 PM EDT): Pt w chronic lower left leg pain and erythema -possible vascular in nature ? -I called today her vascular Dr Adame # [phone]-bym staff pt was last seen in 04/2022 [...] some time -pt will check w her manager cardiac if had recently any DEXA scan otherwise [...] Vit D 1999 -will check w her manager cardiac if had recently any DEXA scan otherwise [...] heterogeneous left thyroid nodule. -pt f w manager cardiac-advised pt to continue care w specialist ,pt will discuss tomorrow w specialist if had recently another US or if plan to repeat Assessment & Plan (10/25/2022 1:17 PM EDT): -thyroid US 2019: Small right lobe. Previously identified small right thyroid nodule is not appreciated. Enlarged left lobe. No appreciable change in the solitary, large, heterogeneous left thyroid nodule. -pt f w manager cardiac-advised pt to continue care w specialist ,request [...] on basal insulin? --I called to her manager cardiac-Dr Diamond at # [phone] at previous visit to discuss case. I [...] refused. -pt has f up apt w manager cardiac tomorrow and advised to discuss about basal insulin ? - manual arts therapy teacher 11/2022 mild non proliferative diabetic retinopathy to f in 6 mo -referred to food and beverage analyst today Assessment & Plan (10/25/2022 1:12 PM EDT): Pt w DM2 -insulin dependent w neuropathy Pt is on rapid insulin 220 u in am only and invokana -today hb1AC is 8.9-elevated CBG at 392--> rechecked was 302 -unsure why pt is not on basal insulin? --I called today her manager cardiac-Dr Diamond at # [phone] to discuss case. I left my cell [...] upcoming meal -will await call from her manager cardiac to discuss plan of care and advised pt to call her specialist at to schedule apt for uncontrolled DM ,likely associated w her ongoing alcohol intake. -also was referred to DM educational by her manager cardiac -referred today to manual arts therapy teacher -will refer to food and beverage analyst at next apt -DM labs Essential hypertension [...] 466, HR 74x' 10/2022 Microalb neg - manual arts therapy teacher 11/2022 Mild non proliferative diabetic retinopathy to f up in 6 mo -continue BP meds Assessment & Plan (10/25/2022 5:54 PM EDT): BP is controlled on ARBs -echo 2016 : EF between 55-60 %.Normal -nuclear stress test 2016: without EKG changes meeting criteria for ischemia. -cardiac cath 2016: non obstructive CAD -referred to manual arts therapy teacher -microalb -will check EKG at next apt [...] order new one -referred back to her outsole splicer to continue care-has apt on 12/2022 Assessment [...] to start trelegy -referred back to her outsole splicer to continue care -request ALFRED ANDERSON to [...] Healing left anterior rib fractures. -Abd US 2018: The liver is enlarged with increased echogenicity [...] -advised healthy diet -f w GI,colonoscopy in 2017 w no major abnormalities Assessment & Plan (10/25/2022 1:08 PM EDT): On colace prn -advised healthy diet -f w GI,colonoscopy in 2017 w no major abnormalities Depressive disorder 03/25/2015 [...] diet and exercise,discussed healthy life style -discussed certified athletic trainer referral --referred already has apt for next month Assessment & Plan (10/25/2022 1:12 PM EDT): Advised pt to improve diet and exercise,discussed healthy life style -discussed certified athletic trainer referral --referred today Smoker 03/25/2015 Assessment & [...] hypoventilatory changes or air trapping. -requested to [place] to obtain last CT chest done per [...] hypoventilatory changes or air trapping. -requested to [place] to obtain last CT chest done per [...] to discuss with her primary care or data processing specialist on getting treatment for alcohol dependence. We discussed using insulin pump, as referenced in manager cardiac note but this time patient does not feel that she can manage an insulin pump independently. Reviewed with patient how to treat hypoglycemia, hypoglycemic handout in Syriac given to patient Encounters Date Type Department Care Team Description 07/09/2024 Refill [facility] [address] [place] [address] Abhijit La MD 07/09/2024 Refill [facility] [address] [place] [address] Shireen Stout MD 06/30/2024 Orders Only [facility] [address] [place] [address] Shireen Stout MD 06/17/2024 Refill [facility] & PEDS [address] [place], [place] [phone] Joanna Dick ANP Diabetic peripheral neuropathy associated with type 2 diabetes mellitus ([facility]) 05/12/2024 Refill [facility] PEDS [address] [place], [place] [phone] Shireen Stout MD Mixed hyperlipidemia from Last 3 Months Immunizations Name Administration [...] Description 08/21/2024 9:30 AM EDT Office Visit [facility] [address] [place] [address] Shireen Stout MD [address] [place] [address] Health Maintenance Due Date Last Done Comments CT Colonography 1960 FIT DNA/Cologuard 1960 FIT 1960 FOBT 1960 Sigmoidoscopy 1960 Diabetes: Foot Exam 1968 Eye Exam 1968 Hepatitis B Vaccines (1 of 3 - Risk 3-dose series) 2018 05/15/2008, 12/06/2007, 08/29/2007 Diabetes: Hemoglobin A1C 06/05/202403/05/2 024, 02/28/2024, 06/07/2023, Additional history exists SDOH Screening 10/24/2024 10/25/2023 Diabetes: Urine Protein Screening 02/27/2025 02/28/2024, 09/10/2020, 06/22/2020, Additional history exists Lipid Panel 02/27/2025 02/28/2024, 05/1 10/2023, 09/10/2020 Alcohol/Substance Use Screening 03/05/2025 03/05/2024 Depression Screening 03/05/2025 03/05/2024, 03/05/20 Tobacco Screening 03/17/2025 03/17/2024 Mammogram 06/30/2025 06/30/2024, 05/11, 05/23/2021, Additional history exists Colonoscopy 05/04/2026 05/04/2016 [...] Procedure Name Priority Date/Time Associated Diagnosis Comments BI MAMMOGRAM SCREENING TOMOSYNTHESIS BILATERAL Routine 06/30/2024 10:15 AM EDT POCT GLYCOSYLATED HEMOGLOBIN (HGB A1C) Routine 03/05/2024 9:03 AM EST Type 2 diabetes mellitus with hyperglycemia, without long-term current use of insulin (CMS/HCC) HEPATITIS C AB W/REFL TO HCV RNA, QN, PCR Routine 02/28/2024 11:10 AM EST Annual physical exam LIPID PANEL, STANDARD Routine 02/28/2024 11:10 AM EST Annual physical exam ALBUMIN, RANDOM URINE W/CREATININE Routine 02/28/2024 11:05 AM EST Annual physical exam HPV MRNA E6/E7 REFLEX TO HPV 16, 18/45 Routine 02/19/2023 10:03 AM EST PAP SMEAR Routine 02/19/2023 10:03 AM EST HM COLONOSCOPY Routine 05/04/2016 from Last 3 Months or Most Recently Relevant to Health Maintenance Results * BI Mammogram Screening Tomosynthesis Bilateral (06/30/2024 10:15 AM EDT) Anatomical Region Laterality Modality Breast Bilateral Mammography 06/30/2024 10:1 5 AM EDT Narrative 07/06/2024 8:14 PM EDT ? [facility] ? [address] ?[place] [address] ?[phone] ? Mammography Report ? Signed ? Patient: Daysi,Shireen ?MR#: [id number] ?? 1 ? : 1960 ?Acct:[id number] ? Age/Sex: 63 / F ?ADM Date: 03/24/25 ? Loc: HO.MAMMO ? Attending Dr: Shireen Krishnan MD ? Ordering Physician: Flor Eulogio,Micheline MD ?Re ?? sults: 2Benign Findings ? Date of Service: 06/30/24 ?Follow Up: 1 Year From Orig ?? inal Mammogram ? Procedure(s): MM tomosynthesis screening BI ?? Accession Number(s): [id number] ? cc: Shireen Stout MD ? EXAMINATION: ?? MM SCREENING DIGITAL BREAST TOMOSYNTHESIS, BILATERAL ? CLINICAL INFORMATION: ? Screening. Asymptomatic. ? COMPARISON: ?? Mammography: Comparison is made with available priors ? TECHNIQUE: ?? Digital breast mammography with tomosynthesis is performed in both the ?? craniocaudal and mediolateral oblique views along with computer-aided ?? detection (CAD). ? FINDINGS: ?? There are scattered areas of fibroglandular density (ACR BI-RADS breast ?? composition Category b). ?? Bilateral secretory calcifications are stable. ?? There are no significant masses, abnormal calcifications, or other ?? abnormalities. ? MM/MM tomosynthesis screening BI ?? IMPRESSION: [...] due date for their next mammogram. ? Electronically signed by: ??Genet Jett DO ??07/06/2024 08:11 PM EDT ?? RP ? Dictated By: ?Genet Jett DO ? Signed By: ?<Electronically signed by Genet Jett, DO in OV> ? 07/06/242010 ? DD/ 1015 ? TD/TT: 06/30/24 1029 ? Pricing Actuary: ? Procedure Note Donotuseinterpreter, Image - 07/06/2024 [facility] [address] [place] [address] Dr. [place], [place] [address] Mammography Report Signed Patient: Shireen TavarezMR#: [id number] 1 : 9Acct:[id number] Age/Sex: 63 / FADM Date: 06/30/24 Loc: HO.MAMMO Attending Dr: Shireen Krishnan MD Ordering Physician: Shireen Stout sults: 2Benign Findings Date of Service: 06/30/24Follow Up: 1 Year From Orig inal Mammogram Procedure(s): MM tomosynthesis screening BI Accession Number(s): [id number] cc: Shireen Stout MD EXAMINATION: MM SCREENING DIGITAL BREAST TOMOSYNTHESIS, BILATERAL CLINICAL INFORMATION: Screening. Asymptomatic. COMPARISON: Mammography: Comparison is made with available priors TECHNIQUE: Digital breast mammography with tomosynthesis is performed in both the craniocaudal and mediolateral oblique views along with computer-aided detection (CAD). FINDINGS: There are scattered areas of fibroglandular density (ACR BI-RADS breast composition Category b). Bilateral secretory calcifications are stable. There are no significant masses, abnormal calcifications, or other abnormalities. MM/MM tomosynthesis screening BI IMPRESSION: No mammographic evidence of malignancy. ASSESSMENT: BI-RADS BI-RADS 2 - Benign Findings RECOMMENDATION: Routine annual mammography screening. 1 year F/U This examination should not preclude the clinical evaluation of a suspicious palpable abnormality. This patient's information was entered into a reminder system with a target due date for their next mammogram. Electronically signed by: Genet Jett DO 07/06/2024 08:11 PM EDT Dictated By: Genet Jett DO Signed By: <Electronically signed by Genet Jett DO in OV> 07/06/242010 DD/ 1015 TD/TT: 06/30/24 1029 Pricing Actuary: Shireen Krishnan MD IMG BI PROCEDURES Edited Result - Final * (ABNORMAL) POCT glycosylated hemoglobin (Hgb A1c) (03/05/2024 9:03 AM EST) Hemoglobin A1C 7.9(A) 4.0 - 6.0 % QC Media Lot # [id number] Lot# Expiration Date [id number] Blood Capillary blood specimen / Unknown 03/05/2024 9:03 AM EST Shireen Krishnan MD POINT OF CARE TANYA T ENTER/EDIT ORDERABLES Final Result * Hepatitis C Antibody with Reflex to HCV, RNA, Quantitative, Real-Time PCR (02/28/2024 11:10 AM EST) Pathologist [facility] Hepatitis C Antibody Nonreactive Nonreactive [facility] Comment:Antibodies to HCV no t detected; does not exclude early acuteHCV infection. Blood Venous blood specimen / Unknown 02/28/2024 11:10 AM EST 02/28/2024 11:10 AM EST Shireen Krishnan MD LAB BLOOD ORDERAB LES Final Result [facility] [address] [place] [address] [phone] * Lipid Panel, Standard (02/28/2024 11:10 AM EST) Triglycerides 132 <150 mg/dL [facility] Comment:Desirable Triglyceri de: less than 150 mg/dLBorderline High Triglyceride 150-199 mg/dLHigh Triglyceride: 200-499 mg/dLVery High Triglyceride: greater than or equal to 5OO mg/dL Cholesterol 128 <200 mg/dL [facility] Comment:Desirable Cholestero l: less than 200 mg/dLBorderline High Cholesterol: 200-239 mg/dLHigh Cholesterol: greater than 239 mg/dL LDL Cholesterol Calculated 56 <100 mg/dL [facility] Comment:Desirable LDL: less than 100 mg/dLNear Optimal/Above Optimal LDL: 110- 129 mg/dLBorderline High LDL: 130-159 mg/dLHigh LDL: 160-189 mg/dLVery High LDL: greater than or equal to 190 mg/dL HDL Cholesterol 46 >40 mg/dL [facility] Comment:Desirable HDL: great er than 40 mg/dL Note: This HDL assay may give artificially low results in patients with liver disease. Blood Venous blood specimen / Unknown 02/28/2024 11:10 AM EST 02/28/2024 11:10 AM EST us Shireen Krishnan MD LAB BLOOD ORDERAB LES Final Result Performing Organization Address [facility] Co de Phone Number [facility] [address] [place] [phone] * Albumin, Random Urine W/Creatinine (02/28/2024 11:05 AM EST) Creatinine, Urine 80.33 mg/dL [facility] Microalbumin Urine <5.0 mg/L [facility] Microalbum Creatinine Ratio Ur TNP <30 ug/mg cr [facility] Comment:Unable to calculate albumin/creatinine ratio due to lowmicroalbumin or creatinine result. Urine (Urine, Random) 02/28/2024 11:05 AM EST 02/28/2024 12:03 PM EST us Shireen Krishnan MD LAB URINE ORDERAB LES Final Result Performing Organization Address [facility]/ZIP Co de Phone Number [facility] [address] [place] [phone] * HPV mRNA E6/E7 w/Reflex to HPV Genotypes 16, 18/45 (02/19/2023 10:03 AM EST) HPV nRNA E6/E7 Not Detected Not Detected [facility] Comment:Methodology: Transcr iption-Mediated AmplificationThis assay detects E6/E7 viral messenger RNA (mRNA) from 14high-risk HPV types (16,18,31,33,35,39,45,51,52,56,58,59,66,68).Cervical sources are required for HPV testing.If a vaginal source from a patient who has had atotal hysterectomy with removal of cervix wassubmitted, please contact the testing laboratoryfor alternative testing options.For additional information, please refer tohttp://education.MoneyLion/faq/CZL350e9(This link if provided for information/educational purposes only.)THIS TEST WAS PERFORMED AT:[employer] [place] [phone] AGUIRRE MD HPV mRNA E6/E7 [facility] HPV 16 RNA [facility] HPV 18/45 RNA [facility] 02/19/2023 10:0 3 AM EST 02/20/2023 11:30 AM EST Wu Arroyo [facility] LAB CYTOLOGY ORDERABLES F inal Result [facility] [address] [place] [phone] * Pap Smear (02/19/2023 10:03 AM EST) 02/19/2023 10:0 3 AM EST 02/20/2023 11:30 AM EST Narrative [facility] - 03/09/2023 12:47 PM EST ----- ------- Name: Shireen Tavarez ?Age/Sex: 62/F ? : 1960 Unit#: [id number] ?? Attend Dr: WU ARROYO CNM ?Re02/19/23 ?Status: DEP REF ? Location: HO.HHCLNP ? Disch: ? ----- ------- SPEC : [id number] ?RECD: 02/20/23 ? STATUS: ??SOUT ? REQ NUM: [id number] ? NATALIE: 02/19/23 ? SUBM DR: WU ARROYO CNM ? ENTERED: ??02/20/239 ?SP TYPE: Pap Smr ?OTHR DR: ? ORDERED: ??Pap Smear ? Interpretation ?? Satisfactory for evaluation. ?? Negative for intraepithelial lesion or malignancy. ?HPV mRNA E6/E7: ?NOT DETECTED ? This assay detects E6/E7 viral messenger RNA (mRNA) from 14 high-risk HPV types (16, 18, ?? 31, 33, 35, 39, 45, 51, 52, 56, 58, 59, 66, 68) ?? HPV testing performed by [facility], [place], [place]. ??See reference laboratory ?? portion of the EMR for entire report. ?Clinical Information LMP: Postmenopausal Previous PAP test: 2017, ASCUS HPV neg ? Material Received ?? ThinPrep-Cervical ----- ------- Signed (signature on file) JEANA South (ASCP) 03/09/23 1247 ? ----- ------- ? END OF REPORT ? us Wu Arroyo CNM LAB CYTOLOGY ORDERABLES F inal Result [facility] [address] [place] [phone] * Colonoscopy (05/04/2016) Colonoscopy performed us Historical Provider HEALTH MAINTENANCE Final Result from Last 3 Months or Most Recently Relevant to Health Maintenance Insurance [facility] Care Teams Pantographer Relationship Specialty Start Date End Date Shireen Stout MD [address] [place] [phone] PCP - General Internal Medicine 09/08/22
--- OUTSIDE RECORDS SUMMARY | 2024-07-17 10:04 | XMS_ITS | Encounter Summary ---
Author Organization [employer] Address [address] [facility] 7t [place] [address] Care Team Providers Care Cardiac Catheterization Technician Name Role Phone Shireen Stout MD Primary Care Pro vider Reason for Visit * Reason Comments Med Refill Encounter Details Date Type Department Care Team (Late st Contact Info) Description 07/27/2023 Refill [facility] MED [facility] PEDS [address] [place], [place] [phone] Shireen Stout MD [address] [place], [place] [phone] Diabetic peripheral neuropathy associated with type 2 [...] Description 08/21/2024 9:30 AM EDT Office Visit [facility]INE [address] [place] [address] Shireen Stout MD [address] [place] [address] documented as of this encounter Visit Diagnoses Diagnosis Diabetic peripheral neuropathy associated with type 2 diabetes mellitus (CMS/HCC) documented in this encounter Additional Health Concerns Assessment Noted Time PHQ-9 Depression Total Score: 5 12/16/19 23 2:02 PM EDT documented as of this encounter Care Teams Cardiac Catheterization Technician Relationship Specialty Start Date End Date Shireen Stout MD [address] [place] [address] PCP - General Internal Medicine 09/08/22 documented as of this encounter
--- OUTSIDE RECORDS SUMMARY | 2024-07-17 10:04 | XMS_ITS | Encounter Summary ---
Author Organization [employer] Address [address] [facility] [address] [place] [address] Care Team Providers Care Junior Accountant Bookkeeper Name Role Phone Shireen Stout MD Primary Care Pro vider Reason for Visit * Reason Comments Med Refill Encounter Details Date Type Department Care Team (Late st Contact Info) Description 07/27/2023 Refill [facility] MED & PEDS [address] [place], [place] [phone] Shireen Stout MD [address] [place], [place] [phone] Diabetic peripheral neuropathy associated with type 2 [...] Description 08/21/2024 9:30 AM EDT Office Visit [facility] MED[facility] [address] [place] [address] Shireen Stout MD [address] [place] [address] documented as of this encounter Visit Diagnoses Diagnosis Diabetic peripheral neuropathy associated with type 2 diabetes mellitus (CMS/HCC) documented in this encounter Additional Health Concerns Assessment Noted Time PHQ-9 Depression Total Score: 5 12/16/19 23 2:02 PM EDT documented as of this encounter Care Teams Junior Accountant Bookkeeper Relationship Specialty Start Date End Date Shireen Stout MD [address] [place] [address] PCP - General Internal Medicine 09/08/22 documented as of this encounter
--- OUTSIDE RECORDS SUMMARY | 2024-07-17 10:04 | XMS_ITS | Encounter Summary ---
Author Organization [employer] [facility] Address [address] [place] [address] 7t [place] [address] Care Team Providers Care Adjustment Examiner Name Role Phone Shireen Stout MD Primary Care Pro vider Reason for Visit * Reason Comments Med Refill Encounter Details Date Type Department Care Team ([facility] st Contact Info) Description 01/10/2023 Refill [facility] MEDICINE [address] [place] [address] Tonja Guzmán FNP [address] [place] [address] Dept [place] [address] Pulmonary emphysema, unspecified emphysema type (CMS/HCC) Social [...] Description 08/21/2024 9:30 AM EDT Office Visit [facility] MEDICINE [address] [place] [address] Shireen Stout MD [address] [place] [address] documented as of this encounter Visit Diagnoses Diagnosis Pulmonary emphysema, unspecified emphysema type (CMS/HCC) documented in this encounter Additional Health Concerns Assessment Noted Time PHQ-9 Depression Total Score: 5 12/16/19 2:02 PM EDT documented as of this encounter Care Teams Adjustment Examiner Relationship Specialty Start Date End Date Shireen Stout MD [address] [place] [address] PCP - General Internal Medicine 09/08/22 documented as of this encounter
--- OUTSIDE RECORDS SUMMARY | 2024-07-17 10:04 | XMS_ITS | Encounter Summary ---
Author Organization [employer] Address [address] [facility] 7t [place] [address] Care Team Providers Care Acoustic Sensor Operator Name Role Phone Shireen Stout MD Primary Care Pro vider Reason for Visit * Reason Comments Med Refill Encounter Details Date Type Department Care Team ([facility] st Contact Info) Description 04/05/2023 Refill [facility] MEDICINE [address] [place], [place] [phone] Enedelia Coley MD [address] [place], [place] [phone] Social History Tobacco Use Types Packs/Day Years [...] 08/21/2024 9:30 AM EDT Office Visit [facility] MEDICINE [address] [place] [address] Shireen Stout MD [address] [place] [address] documented as of this encounter Visit Diagnoses Not on filedocumented in this encounter Additional Health Concerns Assessment Noted Time PHQ-9 Depression Total Score: 5 12/16/19 2:02 PM EDT documented as of this encounter Care Teams Acoustic Sensor Operator Relationship Specialty Start Date End Date Shireen Stout MD [address] [place] [address] PCP - General Internal Medicine 09/08/22 documented as of this encounter
--- OUTSIDE RECORDS SUMMARY | 2024-07-17 10:04 | XMS_ITS | Continuity of Care Document ---
Author Organization [facility] Address [facility] [employer] [place] [address] Phone Care Team Providers Care Crushing Foreman Name Role Phone Wilian ANTHONY, Nonyerem Unavailable [...] Date OFFICE/OUTPATIENT VISIT, EST Pap Lb, Ct-Ng, CFE-tn-Mikgh [facility] Referral Reconciliation [facility] Chart Review OFFICE/OUTPATIENT VISIT, EST CBC With Differential/Platelet-[id number] Oct ROUTINE VENIPUNCTURE Comp. Metabolic Panel [id number] 2016 Hgb A1c with eAG Estimation-54621 [id number] PREV VISIT, EST, AGE 40-64 OFFICE/OUTPATIENT VISIT, EST CBC With Differential/Platelet-83167 Sep ROUTINE VENIPUNCTURE Comp. Metabolic Panel [id number] 2015 Hgb A1c with eAG Estimation-[id number] Panel [id number] [id number] Advance Directives Directive Yes / No Effective Date File Name No Information Encounters Encounter Description Practice Location Reason(s) For Visit Diagnoses Date Provider Providers Copied on Encounter [facility], [address] [employer], [place], [place], [id number], [place] tel: [facility] [place] No Information 8 Osuji Nonyerem. [address] [employer], [place], [address], [place]. tel: [phone] [facility], [address] [facility] [facility], [place], [place], [id number], [place] tel: [facility] [place] Abnormal mammogram 7 [facility] [place]. [address] [employer] [address] [place], [address], [place]. tel: [phone] Consulting Provider: Vannesa Groves ams, [place]. OFFICE/OUTPA TIENT VISIT, EST [facility], [address] [employer], [place], [place], [id number], [place] tel: [facility] [place] colon cancer screen (chief complaint) hypertensi on (chief complaint) pap test (chief complaint) mammogram (chief complaint) Encounter for screening for respiratory tuberculosisBod y mass index (BMI) 40.0-44.9, adultCervical cancer screeningOther screening mammogramColon cancer screeningBorder line systolic HTN 7 Osuji Nonyerem. [address] [employer], [place], [address], [place]. tel: [phone] [facility], [address] [employer], [place], [place], [id number], [place] tel: [facility] [place] No Information 7 [facility] Nurses. [address] [place], [address], [place]. tel: [phone] Consulting Provider: Shireen Vivar LVN. OFFICE/OUTPA TIENT VISIT, EST [facility], [address] [facility], [id number], tel: [facility] [place] General follow up (chief complaint) hypertensi on (chief complaint) diabetes/t hyroid screen (chief complaint) mammogram (chief complaint) Body mass index (BMI) 38.0-38.9, adultBorderline systolic HTNScreening for diabetes mellitusScreeni ng for thyroid disorderOther screening mammogram 7 Osuji Nonyerem. [facility] [employer] [place], [facility], . tel: [phone] PREV VISIT, EST, AGE 40-64 [facility], [facility] [employer] [place], [id number], tel: Osmin [place] No Information 6 Osuji Nonyerem. [facility] [employer] [place], [facility], . tel: [phone] OFFICE/OUTPA TIENT VISIT, EST [facility], [facility] [employer], [place], [place], [id number], tel:000 [facility] [place] Physical (chief complaint) preventive exam (chief complaint) rash (chief complaint) BP check (chief complaint) Body mass index (BMI) 40.0-44.9, adultEncounter for preventative adult health care exam with abnormal findingsScreeni ng for diabetes mellitusScreeni ng for thyroid disorderElevate d blood-pressure reading, without diagnosis of hypertensionPso riasis 6 Osuji Nonyerem. [facility] [employer] [place], [facility], [place]. tel: [phone] Family History Family Member Type Diagnosis Age At Onset No Information Payers Payer name Insurance type Covered green party ID Authoriza tiwilfredo(s) SELF PAY Category C [id number] Social History Type Description Quantity Date Captured Comments Sex Female Smoking Status No Information Chief Complaint And Reason For Visit No Information Plan Of Treatment Date Type Action Status Goal FOBT. Due on due Goal Td vaccine. Due on 17 due Goal Tdap. Due on due Goal Flu Vaccine. Due on due Goal MMR Vaccine. Due on due Goal MMR Vaccine. Due on due Goal Td vaccine. Due on 17 due Goal FOBT. Due on due Goal Flu Vaccine. Due on due Goal Tdap. Due on due Goal Dietary manageme nt education, guidance, and counseling completed Goal FOBT. Due on due Goal Tdap. Due on due Goal Flu Vaccine. Due on due Goal MMR Vaccine. Due on due Goal Td vaccine. Due on 17 due Goal Colonoscopy. Due on due Goal Dietary manageme nt [...] medication today Related to Borderline systolic HTN Giving encouragement to exercise Related to Body mass index (BMI) 38.0-38.9, adult Dietary management e ducation, guidance, and counseling Related to Body mass index (BMI) 38.0-38.9, adult clobetasol cream, use as directe d Related to Psoriasis DASH DIET/LOW SALT D IET encouraged. BP goal <140/<90. keep a BP log Related to Elevated blood-pressure reading, without diagnosis of hypertension A1c today... Related to Robert camacho for diabetes mellitus check labs and HIV t est today. aspirin daily encouraged. deferred. pap smear/mammogram next clinic visit Related to Encounter for preventative adult health care exam with abnormal findings D and E; goal BMI<25 Counseled regarding importance of weight loss. Related to Body mass index (BMI) 40.0-44.9, adult thyroid labs today Related to Sc reening for thyroid disorder Giving encouragement to exercise Related to Body mass index (BMI) 40.0-44.9, adult Dietary management e ducation, guidance, and counseling Related to Body mass index (BMI) 40.0-44.9, adult Assessments Type Assessment Date No Information
--- OUTSIDE RECORDS SUMMARY | 2024-07-17 10:04 | XMS_ITS | Encounter Summary ---
Author Organization [employer] [facility] Address [address] [place] [address] 7t [place] [address] Care Team Providers Care Operations Research Engineer Name Role Phone Tonja Guzmán SENIOR PROJECT CONTROLS SPECIALIST Primary Care Provider [phone] Shireen Stout MD Primary Care Pro vider Encounter Details Date Type Department Care Team (Late st Contact Info) Description 06/27/2022 Abstract [facility] MEDICINE [address] [place] [address] [phone] Provider, MD Ja Social History Tobacco Use [...] Description 08/21/2024 9:30 AM EDT Office Visit [facility] MEDICINE [address] [place] [address] [phone] Shireen Stout MD [address] [place] [address] [phone] documented as of this encounter Procedures Procedure Name Priority Date/Time Associated Diagnosis Comments HEMOGLOBIN A1C (EXTERNAL RESULTS ONLY) Routine 04/20/2022 3:08 PM EST documented in this encounter Results * (ABNORMAL) Hemoglobin A1c (04/20/2022 3:08 PM EST) Hemoglobin A1C 8.9(A) 4.0 - 6.0 % Comment:[facility] [place] 04/20/2022 3:08 PM EST Narrative Eliza Salgado - 04/20/2022 3:08 PM EST A1c performed at [facility] [place] Historical Provider POINT OF CARE TEST ENTER/ EDIT ORDERABLES Final Result documented in this encounter Visit Diagnoses Not on filedocumented in this encounter Care Teams Operations Research Engineer Relationship Specialty Start Date End Date Tonja Guzmán FNP PCP - General Family Medicine 12/04/21 09/07/22 Shireen Stout MD [address] [place] [phone] PCP - General Internal Medicine 09/08/22 documented as of this encounter
== END 2024-07-17 10:02 | disposition home or self-care (01) ==
LOC: HO.HGI 09:17
PROVIDERS: PCP Student in an Organized Health Care Education/Training Program; Visit Provider Internal Medicine Gastroenterology
DX: K74.60 Unspecified cirrhosis of liver (principal); K21.9 Gastro-esophageal reflux disease without esophagitis; R13.14 Dysphagia, pharyngoesophageal phase; K59.09 Other constipation; G89.29 Other chronic pain
CPT/HCPCS: 99214

== ENCOUNTER → 2024-07-17 09:17 | Outpatient (BNVA) | payer OTHER, SELFPAY | PROVIDERS: PCP Student in an Organized Health Care Education/Training Program; Visit Provider Internal Medicine Gastroenterology | DX: K59.09 Other constipation (principal); K74.60 Unspecified cirrhosis of liver; K21.9 Gastro-esophageal reflux disease without esophagitis; R13.14 Dysphagia, pharyngoesophageal phase; R10.10 Upper abdominal pain, unspecified | CPT/HCPCS: 99212 ==

== ENCOUNTER 2024-08-25 08:59 | Outpatient (AMB) | payer OTHER, SELFPAY ==
--- OUTSIDE RECORDS SUMMARY | 2024-08-25 09:11 | XMS_ITS | Encounter Summary ---
Author Organization [employer] Address [address] [facility] 7t [place] [address] Care Team Providers Care Artificial Snow Making Machine Operator Name Role Phone Shireen Stout MD Primary Care Pro vider Encounter Details Date Type Department Care Team ([facility] st Contact Info) Description 08/20/2024 Telephone [facility] MEDICINE [address] [place], [place] [phone] Shireen Stout MD 230 [place], [place] [phone] Social History Tobacco Use Types Packs/Day Years [...] Answer Date Recorded Patient Health Questionnaire-9 Score 11 08/21/2024 Patient Health Questionnaire-9 Score 11 08/21/2024 Last PHQ-9: Questionnaire Data Not on file 0 08/21/2024 Housing Stability Answer Date Recorded What is [...] Answer Date Recorded Patient Health Questionnaire-2 Score 5 08/21/2024 Internet Access Answer Date Recorded Internet Access [...] encounter Miscellaneous Notes * Telephone Encounter - Keri Mandujano [place] - 08/20/2024 9:28 AM EDT ..Chart Prep Labs: not applicable Images: done Vaccines due: Covid Due and Hep B Due Referrals: Not Applicable Screenings: Eye Exam Overdue care gaps: A1C, Glucose, SDOH, Disability , and Oral Health documented in this encounter Plan of Treatment Upcoming Encounters Date Type Department Care Team (Late st Contact Info) Description 09/05/2024 1:15 PM EDT Office Visit [facility] MEDICINE [address] [place] [phone] Terrence Avila MD [address] [place] [phone] 10/16/2024 9:30 AM EDT Office Visit [facility] MEDICINE [address] [place] [address] Shireen Stout MD [address] [place] [address] [place] [address] documented as of this encounter Visit Diagnoses Not on filedocumented in this encounter Additional Health Concerns Assessment Noted Time PHQ-9 Depression Total Score: 3 03/05/20 24 9:07 AM EST documented as of this encounter Care Teams Artificial Snow Making Machine Operator Relationship Specialty Start Date End Date Shireen Stout MD 230 [place] [address] PCP - General Internal Medicine 09/08/22 documented as of this encounter
--- OUTSIDE RECORDS SUMMARY | 2024-08-25 09:11 | XMS_ITS | Encounter Summary ---
Author Organization [employer] Address 75 [facility] 7t [place] [address] Care Team Providers Care Plant And Equipment Worker Name Role Phone Shrieen Stout MD Primary Care Pro vider Reason for Visit * Reason Comments Med Refill Encounter Details Date Type Department Care Team (Late st Contact Info) Description 01/16/2023 Refill [facility] CHC MED & PEDS [address] [place], [place] [phone] Shireen Stout MD 230 [place], [place] [phone] Social History Tobacco Use Types Packs/Day Years [...] Description 09/05/2024 1:15 PM EDT Office Visit [facility] MEDICINE [address] [place] [address] Terrence Avila MD [address] [place] [address] 10/16/2024 9:30 AM EDT Office Visit [facility] MEDICINE [address] [place] [address] Shireen Stout MD [address] [place] [address] documented as of this encounter Visit Diagnoses Not on filedocumented in this encounter Additional Health Concerns Assessment Noted Time PHQ-9 Depression Total Score: 5 12/16/19 23 2:02 PM EDT documented as of this encounter Care Teams Plant And Equipment Worker Relationship Specialty Start Date End Date Shireen Stout MD [address] [place] [address] PCP - General Internal Medicine 09/08/22 documented as of this encounter
--- OUTSIDE RECORDS SUMMARY | 2024-08-25 09:11 | XMS_ITS | Encounter Summary ---
Author Organization [employer] Address [address] [facility] 7t [place] [address] Care Team Providers Care Portal Architect Name Role Phone Shireen Stout MD Primary Care Pro vider Reason for Visit * Reason Comments Med Refill Encounter Details Date Type Department Care Team ([facility] st Contact Info) Description 08/20/2024 Refill [facility] MEDICINE 230 [place] [address] Shireen Stout MD 230 [place], [place] [phone] Diabetic peripheral neuropathy associated with type 2 [...] AM EDT documented as of this encounter Functional Status * Over the past 2 weeks, how often have you been bothered by any of the following problems? Question Answer Date of Assessment Author Patient Health Questionnaire -2 Score 5 08/21/2024 9:44 AM EDT Lana Malone ctoria * Little interest or pleasure in doing things Answer Date of Assessment Author Nearly every day 08/21/2024 9:44 AM EDT Mary Grace Tapia Ba * Feeling down, depressed, or hopeless Answer Date of Assessment Author More than half the days 08/21/2024 9:44 AM EDT Mary Grace Moffett * Trouble falling or staying asleep, or sleeping too much Answer Date of Assessment Author More than half the days 08/21/2024 9:44 AM EDT Mary Grace Moffett * Feeling tired or having little energy Answer Date of Assessment Author Several days 08/21/2024 9:44 AM EDT Mary Grace Franz * Poor appetite or overeating Answer Date of Assessment Author Several days 08/21/2024 9:44 AM EDT Mary Grace Franz * Feeling bad about yourself - or that you are a failure or have let yourself or your family down Answer Date of Assessment Author Not at all 08/21/2024 9:44 AM EDT Mary Grace Franz * Trouble concentrating on things, such as reading the newspaper or watching television Answer Date of Assessment Author Several days 08/21/2024 9:44 AM EDT Mary Grace Franz * Moving or speaking so slowly that other people could have noticed? Or the opposite - being so fidgety or restless that you have been moving around a lot more than usual. Answer Date of Assessment Author Several days 08/21/2024 9:44 AM EDT Mary Grace Franz * Thoughts that you would be better off or hurting yourself in some way Answer Date of Assessment Author Not at all 08/21/2024 9:44 AM EDT Mary Grace Franz * Patient Health Questionnaire-9 Score Answer Date of Assessment Author 11 08/21/2024 9:44 AM EDT Mary Grace Franz * How difficult have these problems made it for you to do your work, take care of things at home, or get along with other people? Answer Date of Assessment Author Somewhat difficult 08/21/2024 9:44 AM EDT Mary Grace Malone documented as of this encounter Plan of Treatment Upcoming Encounters Date Type Department Care Team (Late st Contact Info) Description 09/05/2024 1:15 PM EDT Office Visit [facility] MEDICINE [address] [place] [address] Terrence Avila MD [address] [place] [address] 10/16/2024 9:30 AM EDT Office Visit [facility] MEDICINE [address] [place] [address] Shireen Stout MD [address] [place] [address] documented as of this encounter Visit Diagnoses Diagnosis Diabetic peripheral neuropathy associated with type 2 diabetes mellitus ([facility]) documented in this encounter Additional Health Concerns Assessment Noted Time PHQ-9 Depression Total Score: 3 03/05/20 24 9:07 AM EST documented as of this encounter Care Teams Portal Architect Relationship Specialty Start Date End Date Shireen Stout MD [address] [place] [address] PCP - General Internal Medicine 09/08/22 documented as of this encounter
--- OUTSIDE RECORDS SUMMARY | 2024-08-25 09:11 | XMS_ITS | Encounter Summary ---
Author Organization [employer] Address 75 [facility] 7t [place] [address] Care Team Providers Care Hand Stone Polisher Name Role Phone Shireen Stout MD Primary Care Pro vider Reason for Visit * Reason Comments Med Refill Encounter Details Date Type Department Care Team ([facility] st Contact Info) Description 08/04/2024 Refill [facility] MEDICINE 230 [place], [place] [phone] Shireen Stout MD 230 [place], [place] [phone] Social History Tobacco Use Types Packs/Day Years [...] the past 12 months, has t he Link[employer], gas, oil or water company threatened to [...] Description 09/05/2024 1:15 PM EDT Office Visit [facility] MEDICINE [address] [place] [address] Terrence Avila MD [address] [place] [address] 10/16/2024 9:30 AM EDT Office Visit [facility] MEDICINE [address] [place] [address] Shireen Stout MD [address] [place] [phone] documented as of this encounter Visit Diagnoses Not on filedocumented in this encounter Additional Health Concerns Assessment Noted Time PHQ-9 Depression Total Score: 3 03/05/20 24 9:07 AM EST documented as of this encounter Care Teams Hand Stone Polisher Relationship Specialty Start Date End Date Shireen Stout MD [address] [place] [address] PCP - General Internal Medicine 09/08/22 documented as of this encounter
--- OUTSIDE RECORDS SUMMARY | 2024-08-25 09:11 | XMS_ITS | Encounter Summary ---
Author Organization [employer] Address [address] [facility] 7t [place] [address] Care Team Providers Care Title Insurance Agent Name Role Phone Shireen Stout MD Primary Care Pro vider Reason for Visit * Reason Comments Med Refill Encounter Details Date Type Department Care Team (Late st Contact Info) Description 01/16/2023 Refill [facility] CHC MED & PEDS [address] [place], [place] [phone] Shireen Stout MD 230 [place], [place] [phone] Social History Tobacco Use Types Packs/Day Years [...] Description 09/05/2024 1:15 PM EDT Office Visit [facility] MEDICINE [address] [place] [address] Terrence Avila MD [address] [place] [address] 10/16/2024 9:30 AM EDT Office Visit [facility] MEDICINE [address] [place] [address] Shireen Stout MD [address] [place] [phone] documented as of this encounter Visit Diagnoses Not on filedocumented in this encounter Additional Health Concerns Assessment Noted Time PHQ-9 Depression Total Score: 5 12/16/19 23 2:02 PM EDT documented as of this encounter Care Teams Title Insurance Agent Relationship Specialty Start Date End Date Shireen Stout MD [address] [place] [address] PCP - General Internal Medicine 09/08/22 documented as of this encounter
--- OUTSIDE RECORDS SUMMARY | 2024-08-25 09:11 | XMS_ITS | Encounter Summary ---
Author Organization [employer] Address [address] [place] [address] 7t [place] [address] Care Team Providers Care Director Business Intelligence Name Role Phone Shireen Stout MD Primary Care Pro vider Reason for Visit * Reason Comments Med Refill Encounter Details Date Type Department Care Team (Late st Contact Info) Description 01/16/2023 Refill [facility] MEDICINE 230 [place] [address] Tonja Guzmán FNP [address] [place] [address] Dept [place] [address] Social History Tobacco Use Types Packs/Day Years [...] Description 09/05/2024 1:15 PM EDT Office Visit [facility] MEDICINE [address] [place] [phone] Terrence Avila MD [address] [place] [address] 10/16/2024 9:30 AM EDT Office Visit [facility] MEDICINE [address] [place] [address] Shireen Stout MD [address] [place] [address] documented as of this encounter Visit Diagnoses Not on filedocumented in this encounter Additional Health Concerns Assessment Noted Time PHQ-9 Depression Total Score: 5 12/16/19 23 2:02 PM EDT documented as of this encounter Care Teams Director Business Intelligence Relationship Specialty Start Date End Date Shireen Stout MD [address] [place] [address] PCP - General Internal Medicine 09/08/22 documented as of this encounter
--- OUTSIDE RECORDS SUMMARY | 2024-08-25 09:11 | XMS_ITS | Encounter Summary ---
Author Organization [employer] Address 75 [facility] 7t [place] [address] Care Team Providers Care Regional Office Coordinator Name Role Phone Shireen Stout MD Primary Care Pro vider Encounter Details Date Type Department Care Team (Latest Contact Info) Description 08/21/2024 Travel Social History Tobacco Use Types Packs/Day Years [...] 5 08/21/2024 9:44 AM EDT Lana Malone ctandrez * Little interest or pleasure in doing [...] Assessment Author Several days 08/21/2024 9:44 AM RAT Mary Grace Franz * Feeling bad about yourself - or that you are a failure or have let yourself or your family down Answer Date of Assessment Author Not at all 08/21/2024 9:44 AM RAT Mary Grace Franz * Trouble concentrating on [...] Description 09/05/2024 1:15 PM EDT Office Visit [facility] MEDICINE [address] [place] [address] Terrence Avila MD [address] [place] [address] 10/16/2024 9:30 AM EDT Office Visit [facility] MEDICINE [address] [place] [address] Shireen Stout MD [address] [place] [phone] documented as of this encounter Visit Diagnoses Not on filedocumented in this encounter Additional Health Concerns Assessment Noted Time PHQ-9 Depression Total Score: 11 025 9:44 AM EDT documented as of this encounter Care Teams Regional Office Coordinator Relationship Specialty Start Date End Date Shireen Stout MD [address] [place] [address] PCP - General Internal Medicine 09/08/22 documented as of this encounter
--- OUTSIDE RECORDS SUMMARY | 2024-08-25 09:11 | XMS_ITS | Encounter Summary ---
Author Organization [employer] Address [address] [place] [address] 7t [place] [address] Care Team Providers Care Retail Assistant Manager Name Role Phone Shireen Stout MD Primary Care Pro vider Reason for Referral * Imaging (Routine) - Authorized Specialty Diagnoses / Procedures Referred By Contac t Referred To Contact Radiology Diagnoses Thyroid nodule Procedures US Thyroid Shireen Stout MD [address] [place] [address] Phone: tel: fax: [address] Phone: tel: fax: Referral ID Status Reason Start Date Expiration Date V isits Requested Visits Authorized [id number] Authorized 08/21/2024 08/21/2025 1 1 Encounter Details Date Type Department Care Team (Late st Contact Info) Description 08/21/2024 9:30 AM EDT Office Visit [facility] [address] [place], [place] [phone] Shireen Stout MD [address] [place], [place] [phone] Thyroid nodule (Primary Dx); Type 2 diabetes mellitus with hyperglycemia, without long-term current use of insulin (CMS/HCC); Seasonal allergic rhinitis, unspecified trigger; Diabetic peripheral neuropathy associated with type 2 diabetes mellitus (CMS/HCC); Dietary counseling; Exercise counseling; Alcoholic cirrhosis, unspecified whether ascites present (CMS/HCC); Pulmonary emphysema, unspecified emphysema type (CMS/HCC); Alcohol use disorder, severe, dependence (CMS/HCC); Essential hypertension; Non-toxic multinodular goiter Social History Tobacco Use Types Packs/Day Years [...] AM EDT documented as of this encounter Last Filed Vital Signs Vital Sign Reading Time Taken Comments Blood Pressure 116/56 08/21/2024 9:34 AM EDT Pulse 80 08/21/2024 9:34 AM EDT Temperature 36.7 ??C (98 ??F) 08/21/2024 9:34 AM EDT Respiratory Rate 18 08/21/2024 9:34 AM EDT Oxygen Saturation - - Inhaled Oxygen Concentration - - Weight 83.5 kg (184 lb) 08/21/2024 9:34 AM EDT Height 154.9 cm (5' 1 ) 08/21/2024 9:34 AM EDT Body Mass Index 34.77 08/21/2024 9:34 AM EDT documented in this encounter Functional Status * Over the past 2 weeks, how often have you been bothered by any of the following problems? Question Answer Date of Assessment Author Patient Health Questionnaire -2 Score 5 08/21/2024 9:44 AM EDT Lana Malone * Little interest or pleasure in doing [...] Grace Malone documented as of this encounter Progress Notes * Shireen Krishnan MD - 08/21/2024 9:30 AM EDT Subjective Patient ID: Shireen Tavarez is a 63 y.o. 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 On Home O2 2 L w activity and rest 63 y o F from [place] with PMX of obesity,HLD, HTN, DM2 insulin dependent with neuropathy, and mild retinopathy , thyroid nodules f w sales service manager osteoporosis , alcoholic liver cirrhosis-with ongoing alcohol abuse,hx of asthma/COPD f w fountain brush assembler, mild depression, GERD, hx of OUD stopped years ago,hx of tobacco use-stopped ,urinary incontinence f w urologist Comes today to f up apt -Reports Numbness ,tingling in LEs -seems neuropathy.known hx of diabetic neuropathy -------- Assessment and Plan: Health care maintenance -Annual exam done 10/2023 -Quantiferon 10/2022 Neg -menopause: 45 years -pap smear :02/19/2023 Neg/HPV neg ---saw JR rec for Pap/HPV [id number]. -MM 06/2024: BIRADS 2 to repeat in 1 year -colonoscopy 2017: hyperplastic colonic mucosa per pt told to repeat in 10 y -DEXA 2018: Osteoporosis based on the lowest T-score value of -2.7-on tx already -per endo to repeat --pt has upcoming apt w Endo-will f up w sp,If not done until next apt will refer from here. -vaccines: hepAx2,hepBx3-Immune , Covid 19 last booster 02/2024. M34b6-t/p 20 x1, Tdap 2022 ,s/p Zoster vaccinex2, RSV 11/2023 . Flu vaccine 02/2024 Diabetic peripheral neuropathy associated with type 2 diabetes mellitus Today Hb1ac 8.4 CBG 213 -02/28/2024 hb1AC 7.3 , LDL 56 ,total ch 128, HDL 46,trig 132 <----8.8 <-- 9.2 <----7.9<---8.9,microalb neg , LDL 66 -02/28/2024 microalb neg Not on metformin for diarrhea Not on GLP1 -pt w thyroid nodules in eval for surgery at this time ,has atrophic pancreas -design engineering technician 07/2023 mild non proliferative diabetic retinopathy to f in 1 year -advised to f upw eye sp -pan devulcanizer helper has apt for 09/18/2024 -saw Automotive Glass Technician # [id number] 04/2024 insulin 130 am and pm 85u to avoid hypoglycemia in am -Has f up apt 11/04/24 -advise to decrease ETOH consumption -advised to call her Endo states in am CBG 70s in afternoon elevated Diabetic neuropathy Reports Numbness ,tingling in LEs -seems neuropathy, legs w trace edema -increase gabapentin from 200 mg BID to 300 BID -called already to [facility] today - Explained to patient this is likely associated with uncontrolled diabetes and encouraged patient to follow-up with her sales service manager to improve diabetes control Pulmonary emphysema Home O2 2 L at rest/ambulation Pt w hx of Asthma vs COPD or overlap syndrome -pt on ANNETTE prn + Symbicort -NBZ albuterol prn -fountain brush assembler 07/2024 was started on ASA for chronic chest discomfort and benzonatate 200 mg PO BID PRN Mild CAD -EKG 01/23/2023: NSR, TWI in V2 only ,slight ventricular conduction delay ,repolarization disturbance.QTC 466, HR 74x -CT heart coronary 08/2023 : Bl ground glass opacities and interlobular septal thickening may represent pulmonary congestion/edema .Atelectasis along the left fissure and lower lobe f up in 8 to 12 weeks rec . Nodular hepatic surface suspicious for cirrhosis, cardiac findings: probably mild [id number]% in mid LAD . cardiology already seen and referred for workup -per pt has f up in 04/16/2023 ---EKG as above shows sinus rhythm with nonspecific ST-T changes. T inversions in V1 to V3. ,Echocardiogram with LVEF of 45-50% with moderate diastolic dysfunction. -continue to f w air launch weapons technician--saw cards 01/2024 CAD,EKG has subtle T inversions in V1 to V3. In the coronary CTA minimal to mild stenosis noted somewhat diffusely including left main, LAD, circumflex and RCA. Has f up w cards 08/25/2024 --I am requesting patient to follow-up at that appointment with air launch weapons technician in regards to aspirin as started by her fountain brush assembler given her cirrhosis there is some increased for bleeding ,patient will discuss if need to continue medication. Essential hypertension BP is controlled on ARBs -EKG 01/23/2023: NSR, TWI in V2 only ,slight ventricular conduction delay ,repolarization disturbance.QTC 466, HR 74x'-unchanged from before -02/28/2024 microalb neg -design engineering technician 07/2023 mild non proliferative diabetic retinopathy to f in 1 year -continue BP meds Constipation -colace prn And fiber prn -advised healthy diet -f w GI,colonoscopy in 2016 w no major abnormalities -GI seen 07/2024 Taking Linzess intermittently - since she can have intermittent diarrhea with fecal incontinence .Advised to decrease Linzess to 72 mcg daily FU in 3 months Osteoporosis -DEXA 01/2019: Osteoporosis based on the lowest T-score value of -2.7 and plan to repeat by endo -pt on alendronate weekly-started on 01/2019 ( Confirmed w her px) -02/28/2024 vit D 25.9 -continue vit D weekly and stop daily dose 5000 u today---will need to repeat vit D level at next apt to see if still needs weekly vit D or lower dose -continue ca BID -continue alendronate weekly with plan to continue until f w Endo -pt already on alendronate for aprox 6 y ,will need to consider to stop for holiday of med , pt to f w her endo was planned to repeatDEXA Left knee pain pt w ongoing left knee pain -chronic -using RW -Left knee XR 12/2022 No fracture. Trace joint effusion. Alignment is anatomic. Joint spaces are maintained. Question of tiny calcific or ossific density near the lateral tibial spine on the AP axial view which may represent a loose body within the knee. Faint chondrocalcinosis in the medial joint compartment and possibly within the lateral joint compartment. Arterial vascular calcification is noted. -f w ortho for left knee pain last seen 06/2024 s/p injection well. T f in 3 mo -tylenol prn -careful for liver Obesity -gained 5 pounds in last 6 mo BMI 34 Advised pt to improve diet and exercise,discussed healthy life style -already started care w chili pepper grinder Non-toxic multinodular goiter -thyroid US 2019: Small right lobe. Previously identified small right thyroid nodule is not appreciated. Enlarged left lobe. No appreciable change in the solitary, large, heterogeneous left thyroid nodule. -Thyroid US 06/2020-By endo: thyroid nodule in left side 3.1 x 2.0 x 2.7 cm, Macrocalcifications, ACR TI-RADS category: 5,No lymphadenopathy is seen in the tissue surrounding the thyroid gland. -evaluated by neck surgeon-Dr Felicia Roberto 04/2023 seen after was referred by her sales service manager toeval for possible thyroidectomy-- Recommended for observation of the nodule given stable thyroid nodules ,benign in last bx done in 2018 and given her mx comorbidities . States from note to consider thyroidectomy only is there is substantiality increase in size of nodule ,very symptomatic or futurebx is concerning for malignancy --to return as needed. -I am referring today for thyroid US and w result will ask to f w her endo at next apt Anemia -02/28/2024 CBC wnl<---- 13.7<12.1 <--10.4 <--10,<---- MCV 99.1 ,ferritin wnl, iron 272 ( elev) iron sat elev 01/23/2023 :platelet 310, TIBC elevated and low iron sat,ferritin wnl 11/2022 haptoglobin and LDH wnl ,10/2022 Vit B 12 ,folate, TSH are all wnl Denies melenas,BRPR,hematuria nor vaginal bleeding -continue iron three times a week -f w GI already Alcohol abuse Severe liver Fibrosis -consistent w Cirrhosis -EGD 2011: hemorrhagic gastritis ,no esophageal varices -CT abdomen wo/w IV con 03/26/23; Cirrhosis without evidence of hepatocellular carcinoma. Portal hypertension, patent portal vein, mild splenomegaly. No ascites. -US abdomen limited 03/2024 Hepatomegaly ,findings compatible with cirrhosis. -02/28/2024 AST 78 ALT 71 , -fibrosure F4 (severe fibrosis) , PT elevated , INR wnl <--- INR,PTTand PT as well albumin and platelets are wnl 07/2023 Chem AST 44<----39, ALT 36 <---28 Still drinking 2-3 beers a day -F w GI -Dr Newberry has f up apt in 07/2024 for cirrhosis and GERD -pt naltrexone,reports decrease alcohol intake of beers but still drinking -discussed in length importance to decrease alcohol consumption -continue w OBAT program--Apt w Dr Avila --advised to schedule today -continue folic acid and thiamine Tobacco smoking -STOPPED Started smoking 27 y of age and stopped at her 51 ,stopped 11 y ago,smoked for 24 years --2 PQT a day- Shaquille PQT year is 48 -CT Low dose screening 11/2022: 5 mm non calcified nonspecific subpleural nodule at the lateral leftbase. There are stable moderate bibasilar scattered foci of scar /subsegmental atelectasis w/o airway obstruction. Lung RADS 3-probable benign -rec to repeat low dose CT in 6 months --so for 05/2023 -referred by her fountain brush assembler -CT chest low dose 01/14/24: No findings seen suspicious for malignancy. One small nodule has decreased in size and there is 1 new 2.6 mm right upper lobe subpleural nodule . Lung-RADS Category 2: Benign appearance or behavior of nodules. N/A Depressive disorder -from -Elizabeth P mild depression due to chronic pain and medical condition.Declined OP referral today and agreed to follow-up with me -pt on sertraline 50 mg daily and trazodone 200 mg HS -will continue to monitor LE discomfort Trace bl and moderate varicose veins Seen by Dr Adame -ayden in 04/2022 w reported ovreall normal examination and testing not concern for lesion to be associated w vascular etiology and rec for general education instructor referral -reports on and off pain in her shins w no new leg swelling no changes in skin -trial of compression stokings -requested to staff nuclear medicine technologist --tried not able to wear -if no better at next apt will consider vascular and lasix low dose -diclofenac cream sporadically Review of Systems Constitutional: Negative. Respiratory: Negative. Cardiovascular: Negative. Neurological: Positive for numbness. Objective BP 116/56 (BP Location: Left arm, Patient Position: Sitting, BP Cuff Size: Adult) Pulse 80 Temp98 ??F (36.7 ??C) (Temporal) Resp 18 Ht 5' 1 (1.549 m) Wt 184 lb (83.5 kg) BMI 34.77 kg/m?? Physical Exam Constitutional: General: She is not in acute distress. Appearance: Normal appearance. She is obese. Musculoskeletal: Right lower leg: No edema. Left lower leg: No edema. Comments: Trace bl pitting edema , LE varices Neurological: Mental Status: She is alert. Assessment/Plan Problem List Items Addressed This Visit Alcoholic cirrhosis (CMS/HCC) Relevant Medications linaCLOtide (Linzess) 72 MCG capsule Allergic rhinitis Relevant Medications albuterol 108 (90 Base) MCG/ACT inhaler Diabetic peripheral neuropathy associated with type 2 diabetes mellitus (CMS/HCC) Relevant Medications gabapentin (Neurontin) 300 MG capsule Essential hypertension Alcohol use disorder, severe, dependence (CMS/HCC) Relevant Medications Baqsimi One Pack 3 MG/DOSE nasal powder Pulmonary emphysema (CMS/HCC) Relevant Medications benzonatate (Tessalon) 200 MG capsule albuterol 108 (90 Base) MCG/ACT inhaler Non-toxic multinodular goiter Relevant Medications Aspirin EC Adult Low Dose 81 MG EC tablet Type 2 diabetes mellitus with hyperglycemia, without long-term current use of insulin (CMS/HCC) Relevant Medications Baqsimi One Pack 3 MG/DOSE nasal powder Other Relevant Orders POCT Glucose (Completed) POCT HGB A1C (Completed) Other Visit Diagnoses Thyroid nodule - Primary Relevant Medications Aspirin EC Adult Low Dose 81 MG EC tablet Other Relevant Orders Thyroid Dietary counseling Relevant Medications Baqsimi One Pack 3 MG/DOSE nasal powder Exercise counseling Relevant Medications Baqsimi One Pack 3 MG/DOSE nasal powder documented in this encounter Plan of Treatment Upcoming Encounters Date Type Department Care Team (Late st Contact Info) Description 09/05/2024 1:15 PM EDT Office Visit [facility] [address] [place] [address] [phone] Terrence Avila MD [address] [place] [address] [phone] 10/16/2024 9:30 AM EDT Office Visit [facility] [address] [place] [address] [phone] Shireen Stout MD [address] [place] [address] [phone] Scheduled Orders Name Type Priority Associated Diagnoses Orde r Schedule US Thyroid Imaging Routine Thyroid nodule Expected: 08/21/2024, Expires: 08/21/2025 documented as of this encounter Procedures Procedure Name Priority Date/Time Associated Diagnosis Comments POCT GLYCATED HEMOGLOBIN, TOTAL Routine 08/21/2024 9:38 AM EDT Type 2 diabetes mellitus with hyperglycemia, without long-term current use of insulin ([facility]) POCT GLUCOSE Routine 08/21/2024 9:37 AM EDT Type 2 diabetes mellitus with hyperglycemia, without long-term current use of insulin ([facility]) documented in this encounter Results * (ABNORMAL) POCT HGB A1C (08/21/2024 9:38 AM EDT) Hemoglobin A1C 8.4(A) 4.0 - 6.0 % QC Media Lot # [id number] Lot# Expiration Date Blood 08/21/2024 9:38 AM EDT us Shireen Krishnan MD POINT OF CARE TANYA T ENTER/EDIT ORDERABLES Final Result * (ABNORMAL) POCT Glucose (08/21/2024 9:37 AM EDT) Glucose Blood, POC 213(A) 60 - 200 mg/dL QC Media Lot # [id number] Lot# Expiration Date Blood Capillary blood specimen / Unknown 08/21/2024 9:37 AM EDT Shireen Krishnan MD POINT OF CARE TANYA T ENTER/EDIT ORDERABLES Final Result documented in this encounter Visit Diagnoses Diagnosis Thyroid nodule- Primary Nontoxic uninodular goiter Type 2 diabetes mellitus with hyperglycemia, without long-term current use of insulin (CMS/HCC) Seasonal allergic rhinitis, unspecified trigger Diabetic peripheral neuropathy associated with type 2 diabetes mellitus (CMS/HCC) Dietary counseling Dietary surveillance and counseling Exercise counseling Alcoholic cirrhosis, unspecified whether ascites present (CMS/HCC) Pulmonary emphysema, unspecified emphysema type (CMS/HCC) Alcohol use disorder, severe, dependence (CMS/HCC) Essential hypertension Unspecified essential hypertension Non-toxic multinodular goiter Nontoxic multinodular goiter documented in this encounter Additional Health Concerns Assessment Noted Time PHQ-9 Depression Total Score: 11 025 9:44 AM EDT documented as of this encounter Care Teams Retail Assistant Manager Relationship Specialty Start Date End Date Shireen Stout MD [address] [place] [phone] PCP - General Internal Medicine 09/08/22 documented as of this encounter
--- OUTSIDE RECORDS SUMMARY | 2024-08-25 09:11 | XMS_ITS | Encounter Summary ---
Author Organization [employer] Address [address] [place] [address] 7t [place] [address] Care Team Providers Care Billiard Player Name Role Phone Shireen Stout MD Primary Care Pro vider Reason for Visit * Reason Comments Med Refill Encounter Details Date Type Department Care Team ([facility] Contact Info) Description 01/10/2023 Refill [facility] [address] [place] [address] Tonja Guzmán FNP [address] [place] [address] Dept [place] [address] Pulmonary emphysema, unspecified emphysema type (CMS/HCC) Social [...] Description 09/05/2024 1:15 PM EDT Office Visit [facility] [address] [place] [address] Terrence Avila MD [address] [place] [address] 10/16/2024 9:30 AM EDT Office Visit [facility] [address] [place] [address] [phone] Shireen Stout MD [address] [place] [phone] documented as of this encounter Visit Diagnoses Diagnosis Pulmonary emphysema, unspecified emphysema type (CMS/HCC) documented in this encounter Additional Health Concerns Assessment Noted Time PHQ-9 Depression Total Score: 5 12/16/19 23 2:02 PM EDT documented as of this encounter Care Teams Billiard Player Relationship Specialty Start Date End Date Shireen Stout MD [address] [place] [phone] PCP - General Internal Medicine 09/08/22 documented as of this encounter
--- OUTSIDE RECORDS SUMMARY | 2024-08-25 09:12 | XMS_ITS | Encounter Summary ---
Author Organization [employer] Address [address] [facility] 7t [place] [address] Care Team Providers Care Wind Farm Operations Manager Name Role Phone Shireen Stout MD Primary Care Pro vider Reason for Visit * Reason Comments Med Refill Encounter Details Date Type Department Care Team ([facility] st Contact Info) Description 04/05/2023 Refill [facility] [address] [place], [place] [phone] Enedelia Coley MD [address] [place], [place] [phone] Social History Tobacco Use Types Packs/Day Years [...] Description 09/05/2024 1:15 PM EDT Office Visit [facility] [address] [place] [phone] Terrence Avila MD [address] [place] [phone] 10/16/2024 9:30 AM EDT Office Visit [facility] [address] [place] [phone] Shireen Stout MD [address] [place] [phone] documented as of this encounter Visit Diagnoses Not on filedocumented in this encounter Additional Health Concerns Assessment Noted Time PHQ-9 Depression Total Score: 5 12/16/19 23 2:02 PM EDT documented as of this encounter Care Teams Wind Farm Operations Manager Relationship Specialty Start Date End Date Shireen Stout MD [address] [place] [phone] PCP - General Internal Medicine 09/08/22 documented as of this encounter
--- OUTSIDE RECORDS SUMMARY | 2024-08-25 09:12 | XMS_ITS | Encounter Summary ---
Author Organization [employer] Address [address] [facility] 7t [place] [address] Care Team Providers Care Slag Mixer Name Role Phone Shireen Stout MD Primary Care Pro vider Reason for Visit * Reason Comments Med Refill Encounter Details Date Type Department Care Team (Late st Contact Info) Description 07/27/2023 Refill [facility] [address] [place], [place] [phone] Shireen Stout MD [address] [place], [place] [phone] Diabetic peripheral neuropathy associated with type 2 [...] Description 09/05/2024 1:15 PM EDT Office Visit [facility] [address] [place] [phone] Terrence Avila MD [address] [place] [phone] 10/16/2024 9:30 AM EDT Office Visit [facility] [address] [place] [phone] Shireen Stout MD [address] [place] [phone] documented as of this encounter Visit Diagnoses Diagnosis Diabetic peripheral neuropathy associated with type 2 diabetes mellitus (CMS/HCC) documented in this encounter Additional Health Concerns Assessment Noted Time PHQ-9 Depression Total Score: 5 12/16/19 2:02 PM EDT documented as of this encounter Care Teams Slag Mixer Relationship Specialty Start Date End Date Shireen Stout MD [address] [place] [phone] PCP - General Internal Medicine 09/08/22 documented as of this encounter
--- OUTSIDE RECORDS SUMMARY | 2024-08-25 09:12 | XMS_ITS | Encounter Summary ---
Author Organization [employer] Address [address] [facility] 7t [place] [address] Care Team Providers Care Patrol Community Service Officer Name Role Phone Shireen Stout MD Primary Care Pro vider Reason for Visit * Reason Comments Med Refill Encounter Details Date Type Department Care Team (Late st Contact Info) Description 07/27/2023 Refill [facility] [address] [place], [place] [phone] Shireen Stout MD [address] [place], [place] [phone] Diabetic peripheral neuropathy associated with type 2 [...] Description 09/05/2024 1:15 PM EDT Office Visit [facility] [address] [place] [phone] Terrence Avila MD [address] [place] [phone] 10/16/2024 9:30 AM EDT Office Visit [facility] [address] [place] [address] [phone] Shireen Stout MD [address] [place] [phone] documented as of this encounter Visit Diagnoses Diagnosis Diabetic peripheral neuropathy associated with type 2 diabetes mellitus (CMS/HCC) documented in this encounter Additional Health Concerns Assessment Noted Time PHQ-9 Depression Total Score: 5 12/16/19 2:02 PM EDT documented as of this encounter Care Teams Patrol Community Service Officer Relationship Specialty Start Date End Date Shireen Stout MD [address] [place] [phone] PCP - General Internal Medicine 09/08/22 documented as of this encounter
--- OUTSIDE RECORDS SUMMARY | 2024-08-25 09:12 | XMS_ITS | Clinical Summary ---
Author Organization [employer] Address [address] [place] [address] 7[address] [place] [address] Care Team Providers Care Fertilizer Mixer Name Role Phone Shireen Stout MD Primary Care Pro vider Allergies Active Allergy Reactions Criticality Noted Date Comments Jimmy Inhibitors 03/21/2010 Apple Juice 11/27/2011 Other reaction(s): Cough, scratchy throat Romero 01/05/2021 Peanut Butter Flavoring Agent (Non-Screening) Hives,Swelling 11/27/2011 Other reaction(s): Trouble Breathing, itchy throat Prunus Persica 01/05/2021 Medications * This document contains information received from the source organization and may not represent a complete record from that organization. alendronate (Fosamax) 70 MG tablet Take 1 [...] AREA(S) TWICE DAILY 30 g 024 Active budesonide-formo terol (Symbicort) 160-4.5 MCG/ACT inhaler Inhale 2 puffs in the morning and at bedtime. Rinse mouth with water after use to reduce aftertaste and incidence of candidiasis. Do not swallow. Active naltrexone (Depade) 50 MG tabletIndication s:Alcohol use disorder, severe, dependence (CMS/HCC) Take 1 tablet (50 mg) by mouth Once per day. Please add to her blister packs 90 tablet 3 024 2024 Active Diclofenac Sodium 1 % gel Apply [...] EVERY EVENING 90 capsule 1 025 Active thiamine (Vitamin B-1) 100 [...] WITH MEALS 180 tablet 2 025 Active cetirizine (ZyrTEC) 10 MG tabletIndication s:Seasonal allergic rhinitis, unspecified trigger TAKE 1 TABLET BY MOUTH EVERY MORNING 90 tablet 025 Active Ferrous Sulfate (iron) 325 (65 Fe) MG tablet TAKE 1 TABLET BY MOUTH EVERY MORNING ON SUNDAY, SUNDAY AND SUNDAY 13 tablet 5 025 Active ergocalciferol (Vitamin D2) 1.25 MG (73700 UT) capsule TAKE 1 CAPSULE BY MOUTH ONCE WEEKLY ON SUNDAY MORNING 4 capsule 2 025 Active Aspirin EC Adult Low Dose 81 MG EC tablet 025 Active benzonatate (Tessalon) 200 MG capsule TAKE 1 CAPSULE BY MOUTH TWICE DAILY NEEDED FOR COUGH 025 Active Baqsimi One Pack 3 MG/DOSE nasal powder See Instructions, 3 mg Once To be use for hypoglycemic emergency by family member or accompanying person, if blood glucoses less than 60 and unconscious. Please call 911 after use of glucagon. E11.9, # 1 each, 0 Refills, Soft Stop, 06/18/24 12:20:00 PM EDT, [facility], Partial fill upon patient request if the prescription is for a schedule II opioid drug., 156, cm, 06/18/24 9:02:00 EDT, Height 025 Active lidocaine (Lidoderm) 5 % patch Apply 1 patch topically Once per day. 025 2024 Active albuterol 108 (90 Base) MCG/ACT inhalerIndicatio ns:Seasonal allergic rhinitis, unspecified trigger Inhale 2 puffs every 6 (six) hours if needed for wheezing. 18 g 2 025 2025 Active gabapentin (Neurontin) 300 MG capsule Take 1 capsule (300 mg) by mouth 2 times daily. 60 capsule 5 025 2025 Active linaCLOtide (Linzess) 72 MCG capsule Take 72 mcg by mouth before breakfast. Do not crush or chew. Active albuterol 108 (90 Base) MCG/ACT inhalerIndicatio ns:Seasonal allergic rhinitis, unspecified trigger Inhale 2 puffs every 6 (six) hours if needed for wheezing. 18 g 2 024 2024 Discontinued(R eorder (will not trigger notification to Pharmacy)) Linzess 145 MCG capsule Take 145 mcg by mouth in the morning. 024 2024 Discontinued(O ther) ferrous sulfate (FeroSul) 325 (65 Fe) MG tablet Take 1 tablet (325 mg) by mouth 3 (three) times a week. 90 tablet 024 2024 Discontinued sodium chloride ([place] Nasal [place]) 0.65 % nasal spray Administer 1 spray into each nostril if needed for congestion. 30 mL 2 024 2024 clotrimazole (Lotrimin) 1 % vaginal creamIndications :Vulvovaginal Candidiasis Insert one applicator per vagina at bedtime for 7 nights 45 g 024 2024 Discontinued(O ther) cetirizine (ZyrTEC) 10 MG tabletIndication s:Seasonal allergic rhinitis, unspecified trigger TAKE 1 TABLET BY MOUTH EVERY MORNING 90 tablet 1 024 2024 Discontinued ergocalciferol (Vitamin D2) 1.25 MG (85526 UT) capsule Take 1 capsule (1.25 mg) by mouth 1 (one) time per week. 4 capsule 5 024 2024 Discontinued gabapentin (Neurontin) 100 MG capsuleIndicatio ns:Diabetic peripheral neuropathy associated with type 2 diabetes mellitus (CMS/HCC) TAKE 2 CAPSULES BY MOUTH TWICE DAILY IN THE MORNING AND EVENING 120 capsule 025 2024 Discontinued(O ther) Active Problems Problem Noted Date Diagnosed Date Moderate recurrent major depression 08/21/2024 Alcoholic fibrosis and sclerosis of liver 2023 Vitamin D deficiency 03/05/2024 Acute vaginitis 11/01/2023 Type 2 diabetes [...] -2.7-on tx already -vaccines: hepAx2,hepBx3-Immune , Covid 85l5-Llaevpxn 10/2022, r32a0-s/p 20 x1, tdap 2022 ,s/p zoster vaccinex2 [...] value of -2.7-on tx already -vaccines: hepAx2,hepBx3,covid 00j0-Diaiphzy today, q57f3-n/p 20 x1, tdap 2011- today booster,s/p zoster [...] associated w vascular etiology and rec for wig comber referral -pt was tx already w keflex 500 BID x 5 days at last apt w no change in rash -advised pt to raise leg -referred to wig comber -pt using fungal cream chronically px by vascular Assessment & Plan (10/25/2022 1:41 PM EDT): Pt w chronic lower left leg pain and erythema -possible vascular in nature ? -I called today her vascular Dr Adame # [phone]-oob staff pt was last seen in 04/2022 [...] some time -pt will check w her ophthalmic tech if had recently any DEXA scan otherwise [...] Vit D 1999 -will check w her ophthalmic tech if had recently any DEXA scan otherwise [...] heterogeneous left thyroid nodule. -pt f w ophthalmic tech-advised pt to continue care w specialist ,pt will discuss tomorrow w specialist if had recently another US or if plan to repeat Assessment & Plan (10/25/2022 1:17 PM EDT): -thyroid US 2019: Small right lobe. Previously identified small right thyroid nodule is not appreciated. Enlarged left lobe. No appreciable change in the solitary, large, heterogeneous left thyroid nodule. -pt f w ophthalmic tech-advised pt to continue care w specialist ,request [...] on basal insulin? --I called to her ophthalmic tech-Dr Diamond at # [phone] at previous visit to discuss case. I [...] refused. -pt has f up apt w ophthalmic tech tomorrow and advised to discuss about basal insulin ? - encyclopedia research worker 11/2022 mild non proliferative diabetic retinopathy to f in 6 mo -referred to barn boss today Assessment & Plan (10/25/2022 1:12 PM EDT): Pt w DM2 -insulin dependent w neuropathy Pt is on rapid insulin 220 u in am only and invokana -today hb1AC is 8.9-elevated CBG at 392--> rechecked was 302 -unsure why pt is not on basal insulin? --I called today her ophthalmic tech-Dr Diamond at # [phone] to discuss case. I left my cell [...] upcoming meal -will await call from her ophthalmic tech to discuss plan of care and advised pt to call her specialist at to schedule apt for uncontrolled DM ,likely associated w her ongoing alcohol intake. -also was referred to DM educational by her ophthalmic tech -referred today to encyclopedia research worker -will refer to barn boss at next apt -DM labs Essential hypertension [...] 466, HR 74x' 10/2022 Microalb neg - encyclopedia research worker 11/2022 Mild non proliferative diabetic retinopathy to f up in 6 mo -continue BP meds Assessment & Plan (10/25/2022 5:54 PM EDT): BP is controlled on ARBs -echo 2016 : EF between 55-60 %.Normal -nuclear stress test 2016: without EKG changes meeting criteria for ischemia. -cardiac cath 2016: non obstructive CAD -referred to encyclopedia research worker -microalb -will check EKG at next apt [...] order new one -referred back to her private duty aide to continue care-has apt on 12/2022 Assessment [...] to start trelegy -referred back to her private duty aide to continue care -request ALFRED ANDERSON to [...] diet and exercise,discussed healthy life style -discussed director of employee development referral --referred already has apt for next month Assessment & Plan (10/25/2022 1:12 PM EDT): Advised pt to improve diet and exercise,discussed healthy life style -discussed director of employee development referral --referred today Smoker 03/25/2015 Assessment & [...] hypoventilatory changes or air trapping. -requested to [place] to obtain last CT chest done per [...] hypoventilatory changes or air trapping. -requested to [place] to obtain [place] CT chest done per pt > 1 y ago -referred today to lung ca screening program to continue screening Resolved Problems Problem Noted Date Diagnosed Date Resolved Date Skin lesions 03/05/2024 08/23/2024 Lower extremity edema 11/01/20232023 Skin lesion 01/23/2023 [...] to discuss with her primary care or rehab specialist on getting treatment for alcohol dependence. We discussed using insulin pump, as referenced in ophthalmic tech note but this time patient does not feel that she can manage an insulin pump independently. Reviewed with patient how to treat hypoglycemia, hypoglycemic handout in Finnish given to patient Encounters * This document contains information received from the source organization and may not represent a complete record from that organization. Date Type Department Care Team Description 08/21/2024 9:30 AM EDT Office Visit [facility] [address] [place] [phone] Shireen Stout MD Thyroid nodule (Primary Dx); Type 2 diabetes mellitus with hyperglycemia, without long-term current use of insulin ([facility]); Seasonal allergic rhinitis, unspecified trigger; Diabetic peripheral neuropathy associated with type 2 diabetes mellitus ([facility]); Dietary counseling; Exercise counseling; Alcoholic cirrhosis, unspecified whether ascites present ([facility]); Pulmonary emphysema, unspecified emphysema type ([facility]); Alcohol use disorder, severe, dependence ([facility]); Essential hypertension; Non-toxic multinodular goiter 08/21/2024 Travel 08/20/2024 Refill [facility] [address] [place] [address] Shireen Stout MD Diabetic peripheral neuropathy associated with type 2 diabetes mellitus ([facility]) 08/20/2024 Telephone [facility] [address] [place] [address] Shireen Stout MD 08/10/2024 Refill [facility] [address] [place] [address] Shireen Stout MD Seasonal allergic rhinitis, unspecified trigger 08/04/2024 Refill [facility] [address] [place] [address] Shireen Stout MD 07/18/2024 Refill [facility] [address] [place] [address] Joanna Dick ANP Diabetic peripheral neuropathy associated with type 2 diabetes mellitus ([facility]/HCC) 07/09/2024 Refill [facility] [address] [place] [address] Abhijit La MD 07/09/2024 Refill [facility] [address] [place] [address] Shireen Stout MD 06/30/2024 Orders Only [facility] [address] [place] [address] Shireen Stout MD 06/17/2024 Refill [facility] [address] [place] [address] Joanna Dick ANP Diabetic peripheral neuropathy associated with type 2 diabetes mellitus ([facility]) from Last 3 Months Immunizations Immunization Administration Dates Next Due Hep A, Adult [...] the past 12 months, has t he [employer], gas, oil or water [employer] threatened to shut off services in your [...] 18 08/21/2024 9:34 AM EDT Oxygen Saturation 90% 03/05/2024 9:02 AM EST Inhaled Oxygen Concentration - - Weight 83.5 kg (184 lb) 08/21/2024 9:34 AM EDT Height 154.9 cm (5' 1 ) 08/21/2024 9:34 AM EDT Body Mass Index 34.77 08/21/2024 9:34 AM EDT Plan of Treatment Upcoming Encounters Date Type Department Care Team (Late st Contact Info) Description 09/05/2024 1:15 PM EDT Office Visit [facility] [address] [place] [address] Terrence Avila MD [address] [place] [address] 10/16/2024 9:30 AM EDT Office Visit [facility] [address] [place], [place] [phone] Shireen Stout MD [address] [place], [place] [phone] Health Maintenance Due Date Last Done Comments CT Colonography 1960 FIT DNA/Cologuard 1960 FIT 1960 FOBT 1960 Sigmoidoscopy 1960 Diabetes: Foot Exam 1968 Eye Exam 1968 Hepatitis B Vaccines (1 of 3 - Risk 3-dose series) 2018 05/15/2008, 12/06/2007, 08/29/2007 COVID-19 Vaccine ( season) 2024 03/05/2024, 06/07/2023, 10/25/2022, Additional history exists SDOH Screening 10/24/2024 10/25/2023 Diabetes: Hemoglobin A1C 11/21/2024 025, 03/05/2024, 02/28/2024, Additional history exists Diabetes: Urine Protein Screening 02/27/2025 02/28/2024, 09/10/2020, 06/22/2020, Additional history exists Lipid Panel 02/27/2025 02/28/2024, 08/07, 09/10/2020 Alcohol/Substance Use Screening 03/05/2025 03/05/2024 Mammogram 06/30/2025 06/30/2024, 0204/2023, 05/23/2021, Additional history exists Depression Screening 08/21/2025 08/21/2024, 08/22/19 Tobacco Screening 08/21/2025 08/21/2024 Colonoscopy 05/04/2026 05/04/2016 Colorectal Cancer Screening 05/04/2026 [...] Completed 11/15/2023 Hepatitis C Screening Completed 02/28/2024 Influenza Vaccine Completed 03/05/2024, , 01/26/2021, Additional [...] without long-term current use of insulin ([facility]) POCT GLUCOSE Routine 08/21/2024 9:37 AM EDT Type 2 diabetes mellitus with hyperglycemia, without long-term current use of insulin ([facility]) BI MAMMOGRAM SCREENING TOMOSYNTHESIS BILATERAL Routine 06/30/2024 10:15 AM EDT HEPATITIS C AB W/REFL TO HCV RNA, [...] Recently Relevant to Health Maintenance Results * (ABNORMAL) POCT HGB A1C (08/21/2024 9:38 AM EDT) Hemoglobin A1C 8.4(A) 4.0 - 6.0 % QC Media Lot # [id number] Lot# Expiration Date Blood 08/21/2024 9:38 AM EDT Shireen Krishnan MD POINT OF CARE TANYA T ENTER/EDIT ORDERABLES Final Result * (ABNORMAL) POCT Glucose (08/21/2024 9:37 AM EDT) Glucose Blood, POC 213(A) 60 - 200 mg/dL QC Media Lot # [id number] Lot# Expiration Date Blood Capillary blood specimen / Unknown 08/21/2024 9:37 AM EDT Shireen Krishnan MD POINT OF CARE TANYA T ENTER/EDIT ORDERABLES Final Result * BI Mammogram Screening Tomosynthesis Bilateral (06/30/2024 10:15 AM EDT) Anatomical Region Laterality Modality Breast Bilateral Mammography 06/30/2024 10:1 5 AM EDT Narrative 07/06/2024 8:14 PM EDT ? [facility] ? [address] ?[place] [address] ?[phone] ? Mammography Report ? Signed ? Patient: Tavarez,Shireen ?MR#: [id number] ?? 1 ? : 1960 ?Acct:[id number] ? Age/Sex: 63 / F ?ADM Date: 06/30/24 ? Loc: HO.MAMMO ? Attending Dr: Shireen Krishnan MD ? Ordering Physician: Shireen Stout MD ?Re ?? sults: 2Benign Findings ? Date of Service: 06/30/24 ?Follow Up: 1 Year From Orig ?? inal Mammogram ? Procedure(s): MM tomosynthesis screening BI ?? Accession Number(s): [id number] ? cc: Shireen Stout MD ? EXAMINATION: [...] ??Genet Jett DO ??07/06/2024 08:11 PM EDT ? Dictated By: ?Genet Jett DO ? Signed By: ?<Electronically signed by Genet Jett, DO in OV> ? 07/06/242010 ? DD/ 1015 ? TD/TT: 06/30/24 1029 ? Chief Architect: ? Procedure Note Donyesenia, Image - 07/06/2024 [facility] [address] [place] [address] Mammography Report Signed Patient: Shireen TavarezMR#: [id number] 1 : 9Acct:[id number] Age/Sex: 63 / FADM Date: 06/30/24 Loc: HO.MAMMO Attending Dr: Shireen Krishnan MD Ordering Physician: Shireen Stoute sults: 2Benign Findings Date of Service: 06/30/24Follow Up: 1 Year From Orig inal Mammogram Procedure(s): MM tomosynthesis screening BI Accession Number(s): [id number] cc: Shireen Stout MD EXAMINATION: MM SCREENING [...] OV> 07/06/242010 DD/ 1015 TD/TT: 06/30/24 1029 Chief Architect: Shireen Krishnan MD IMG BI PROCEDURES Edited Result - Final * Hepatitis C Antibody with Reflex to HCV, RNA, Quantitative, Real-Time PCR (02/28/2024 11:10 AM EST) Hepatitis C Antibody Nonreactive Nonreactive [facility] Comment:Antibodies to HCV no t detected; does not exclude early acuteHCV infection. Blood Venous blood specimen / Unknown 02/28/2024 11:10 AM EST 02/28/2024 11:10 AM EST Shireen Krishnan MD LAB BLOOD ORDERAB LES Final Result [facility] [address] [place] [address] [phone] * Lipid Panel, Standard (02/28/2024 11:10 AM EST) Triglycerides 132 <150 mg/dL [facility] Comment:Desirable Triglyceri de: less than 150 mg/dLBorderline High Triglyceride 150-199 mg/dLHigh Triglyceride: 200-499 mg/dLVery High Triglyceride: greater than or equal to 5OO mg/dL Cholesterol 128 <200 mg/dL [facility] Comment:Desirable Cholestero l: less than 200 mg/dLBorderline High Cholesterol: 200-239 mg/dLHigh Cholesterol: greater than 239 mg/dL LDL Cholesterol Calculated 56 <100 mg/dL [facility] Comment:Desirable LDL: less than 100 mg/dLNear Optimal/Above Optimal LDL: 110- 129 mg/dLBorderline High LDL: 130-159 mg/dLHigh LDL: 160-189 mg/dLVery High LDL: greater than or equal to 190 mg/dL HDL Cholesterol 46 >40 mg/dL [facility] Comment:Desirable HDL: great er than 40 mg/dL Note: This HDL assay may give artificially low results in patients with liver disease. Blood Venous blood specimen / Unknown 02/28/2024 11:10 AM EST 02/28/2024 11:10 AM EST us Shireen Krsihnan MD LAB BLOOD ORDERAB LES Final Result Performing Organization Address [place]/[facility]/ZIP Co de Phone Number [facility] [address] [place] [phone] * Albumin, Random Urine W/Creatinine (02/28/2024 11:05 AM EST) Creatinine, Urine 80.33 mg/dL [facility] Microalbumin Urine <5.0 mg/L [facility] Microalbum Creatinine Ratio Ur TNP <30 ug/mg cr [facility] Comment:Unable to calculate albumin/creatinine ratio due to lowmicroalbumin or creatinine result. Urine (Urine, Random) 02/28/2024 11:05 AM EST 02/28/2024 12:03 PM EST us Shireen Krishnan MD LAB URINE ORDERAB LES Final Result Performing Organization Address City/[facility]/ZIP Co de Phone Number [facility] [address] [place] [phone] * HPV mRNA E6/E7 w/Reflex to HPV Genotypes 16, 18/45 (02/19/2023 10:03 AM EST) HPV nRNA E6/E7 Not Detected Not Detected [facility] Comment:Methodology: Transcr iption-Mediated AmplificationThis assay detects E6/E7 viral messenger RNA (mRNA) from 14high-risk HPV types (16,18,31,33,35,39,45,51,52,56,58,59,66,68).Cervical sources are required for HPV testing.If a vaginal source from a patient who has had atotal hysterectomy with removal of cervix wassubmitted, please contact the testing laboratoryfor alternative testing options.For additional information, please refer [email or web address]/faq/[email or web address](This link if provided for information/educational purposes only.)THIS TEST WAS PERFORMED AT:[facility] [place] [phone] AGUIRRE MD HPV mRNA E6/E7 [facility] HPV 16 RNA [facility] HPV 18/45 RNA [facility] 02/19/2023 10:0 3 AM EST 02/20/2023 11:30 AM EST Wu Arroyo [facility] CYTOLOGY ORDERABLES F inal Result [facility] [address] [place], [place] [phone] * Pap Smear (02/19/2023 10:03 AM EST) 02/19/2023 10:0 3 AM EST 02/20/2023 11:30 AM EST Narrative [facility] - 03/09/2023 12:47 PM EST ----- ------- Name: Shireen Tavarez ?Age/Sex: 62/F ? : 1960 Unit#: [id number] ?? Attend Dr: WU ARROYO CNM ?Re02/19/23 ?Status: DEP REF ? Location: HO.HHCLNP ? Disch: ? ----- ------- SPEC : [id number] ?RECD: 02/20/23 ? STATUS: ??SOUT ? REQ NUM: [id number] ? NATALIE: 02/19/23 ? SUBM DR: WU [...] 66, 68) ?? HPV testing performed by [employer] [facility], [place], [place]. ??See reference laboratory ?? portion of the EMR for entire report. ?Clinical Information LMP: Postmenopausal Previous PAP test: 2017, ASCUS HPV neg ? Material Received ?? ThinPrep-Cervical ----- ------- Signed (signature on file) JEANA South (ASCP) 03/09/23 1247 ? ----- ------- ? END OF REPORT ? us [facility] CYTOLOGY ORDERABLES F inal Result [facility] [address] [place] [phone] * Colonoscopy (05/04/2016) Colonoscopy performed us Historical Provider HEALTH MAINTENANCE Final Result from Last 3 Months or Most Recently Relevant to Health Maintenance Insurance [facility] [employer] (O D-SNP) YANCI ZAPATA [phone] [place] [id number] Care Teams Fertilizer Mixer Relationship Specialty Start Date End Date Shireen Stout MD [address] [place] [address] PCP - General Internal Medicine 09/08/22
--- OUTSIDE RECORDS SUMMARY | 2024-08-25 09:12 | XMS_ITS | Clinical Summary ---
Author Organization [facility] Address [address] [place] [address] Phone Care Team Providers Care Bander And Cellophaner Machine Helper Name Role Phone Shireen Stout MD Primary Care Pro vider Allergies Active Allergy Reactions Criticality Noted Date Comments Jimmy Inhibitors 11/02/2023 Apple 11/02/2023 Romero 11/02/2023 Mccracken (Prunus Persica) 11/02/2023 Peanut 11/02/2023 Medications albuterol [...] directed by . 30 each 2 5 025 Active ammonium lactate (AMLACTIN) 12 % cream Apply topically if needed for dry skin. 770 g 5 026 Active diclofenac (Voltaren Arthritis Pain) 1 % topical gel Apply 4 g topically 2 (two) times a day. 240 g 1 5 025 Encounters Date Type Department Care Team Description 06/18/2024 11:00 AM EDT Office Visit Orthopedic Surgery - [address] [phone] Herson Fitzgerald, DPM Diabetic mononeuropathy [...] Upcoming Encounters Date Type Department Care Team ([facility] st Contact Info) Description 09/18/2024 9:00 AM EDT Office Visit Orthopedic Surgery - [place] [address] [phone] Herson Fitzgerald, THIEN [address] [address] Health Maintenance Due Date Last Done Comments Breast Cancer Screening 1960 Diabetes: Annual GFR (Glomerular Filtration Rate) 1958 Diabetes: Annual Foot Exam 1968 Diabetes: Annual Retina Eye Exam 1968 Colorectal Cancer Screening: Colonoscopy 11/02/2023 Osteoporosis Screening (Bone Density Screening) 11/02/2023 Social Influencers of Health Screening 11/02/2023 Falls Risk Assessment 11/30/2023 Diabetes: Annual Urine Albumin-Creatinine Ratio (uACR) 06/18/2024 Hypertension/CHF/CAD Annual BMP Blood Test 06/18/2024 COVID-19 Vaccine (7 - Moderna risk season) 2024 03/05/2024, 06/07/2023, 10/25/2022, Additional history exists Diabetes: Blood Sugar Control Test (HGBA1C) 09/02/2024 [...] topic Insurance MEDICAID - [place] Care Teams Bander And Cellophaner Machine Helper Relationship Specialty Start Date End Date Shireen Stout MD [address] [facility] [address] [place] [phone] PCP - General 08/16/23
--- OUTSIDE RECORDS SUMMARY | 2024-08-25 09:12 | XMS_ITS | Encounter Summary ---
Author Organization [employer] Address [address] [facility] 7t [place] [address] Care Team Providers Care Supervisor Stave Finishing Name Role Phone Shireen Stout MD Primary Care Pro vider Reason for Visit * Reason Comments Med Refill Encounter Details Date Type Department Care Team (Late st Contact Info) Description 10/17/2023 Refill [facility] [address], [place] [phone] Bruna Yusuf FNP [address], [place] [phone] Social History Tobacco Use Types Packs/Day Years [...] Description 09/05/2024 1:15 PM EDT Office Visit [facility] [address] [place] [phone] Terrence Avila MD [address] [place] [phone] 10/16/2024 9:30 AM EDT Office Visit [facility] [address] [place] [phone] Shireen Stout MD [address] [place] [phone] documented as of this encounter Visit Diagnoses Not on filedocumented in this encounter Additional Health Concerns Assessment Noted Time PHQ-9 Depression Total Score: 5 12/16/19 23 2:02 PM EDT documented as of this encounter Care Teams Supervisor Stave Finishing Relationship Specialty Start Date End Date Shireen Stout MD [address] [place] [phone] PCP - General Internal Medicine 09/08/22 documented as of this encounter
--- OUTSIDE RECORDS SUMMARY | 2024-08-25 09:12 | XMS_ITS | Encounter Summary ---
Author Organization [employer] Address [address] [place] [address] 7t [place] [address] Care Team Providers Care Foundry Finisher Name Role Phone Tonja Guzmán HOT WALKER Primary Care Provider [phone]- [phone] Shireen Stout MD Primary Care Pro vider Encounter Details Date Type Department Care Team (Late st Contact Info) Description 06/27/2022 Abstract [facility] [address] [place] [address] [phone] Provider, MD Ja Social History Tobacco Use [...] 09/05/2024 1:15 PM EDT Office Visit [facility] [address] [place] [address] [phone] Terrence Avila MD [address] [place] [address] [phone] 10/16/2024 9:30 AM EDT Office Visit [address] [phone] Shireen Stout MD [address] [place] [address] [phone] documented as of this encounter Procedures Procedure Name Priority Date/Time Associated Diagnosis Comments HEMOGLOBIN A1C (EXTERNAL RESULTS ONLY) Routine 04/20/2022 3:08 PM EST documented in this encounter Results * (ABNORMAL) Hemoglobin A1c (04/20/2022 3:08 PM EST) Hemoglobin A1C 8.9(A) 4.0 - 6.0 % Comment:[facility] [place] 04/20/2022 3:08 PM EST Narrative Eliza Salgado - 04/20/2022 3:08 PM EST A1c performed at [facility] [place] us Historical Provider POINT OF CARE TEST ENTER/ EDIT ORDERABLES Final Result documented in this encounter Visit Diagnoses Not on filedocumented in this encounter Care Teams Foundry Finisher Relationship Specialty Start Date End Date Tonja Guzmán FNP PCP - General Family Medicine 12/04/21 09/07/22 Shireen Stout MD [address] [place] [address] [phone] PCP - General Internal Medicine 09/08/22 documented as of this encounter
--- OUTSIDE RECORDS SUMMARY | 2024-08-25 09:12 | XMS_ITS | Continuity of Care Document ---
Author Organization [facility] Address [facility] [place] [address] Phone Care Team Providers Care Manager Support Name Role Phone iWlian ANTHONY, Nonyerem Unavailable Unavailable Allergies, Adverse Reactions, [...] Date OFFICE/OUTPATIENT VISIT, EST Pap Lb, Ct-Ng, DGD-dt-Nqibq [facility] Referral Reconciliation [facility] Chart Review OFFICE/OUTPATIENT VISIT, EST CBC With Differential/Platelet-87869 Oct ROUTINE VENIPUNCTURE Comp. Metabolic Panel [id number] Hgb A1c with eAG Estimation-91369 TSH-[id number] PREV VISIT, EST, AGE 40-64 OFFICE/OUTPATIENT VISIT, EST CBC With Differential/Platelet-94227 Sep ROUTINE VENIPUNCTURE Comp. Metabolic Panel [id number] Hgb A1c with eAG Estimation-[id number] Panel [id number] TSH-76300 Advance Directives Directive Yes / No Effective Date File Name No Information Encounters Encounter Description Practice Location Reason(s) For Visit Diagnoses Date Provider Providers Copied on Encounter [facility], [address], [place], [place], [id number], [place] tel: [facility] [place] No Information 8 Osuji Nonyerem. [address], [place], [address], [place]. tel: [phone] [facility], [address] [facility], [place], [place], [id number], [place] tel: [facility] [place] Abnormal mammogram 7 [facility]. [address] [place], [address], [place]. tel: [phone] Consulting Provider: Vannesa Groves ams, [place]. OFFICE/OUTPA TIENT VISIT, EST [facility], [address], [place], [place], [id number], [place] tel: [facility] [place] colon cancer screen (chief complaint) hypertensi on (chief complaint) pap test (chief complaint) mammogram (chief complaint) Encounter for screening for respiratory tuberculosisBod y mass index (BMI) 40.0-44.9, adultCervical cancer screeningOther screening mammogramColon cancer screeningBorder line systolic HTN 7 Osuji Nonyerem. [address], [place], [address], [place]. tel: [phone] [facility], [address], [place], [place], [id number], [place] tel: [facility] [place] No Information 7 [facility]. [address] [place], [address], [place]. tel: [phone] Consulting Provider: Shireen Vivar LVN. OFFICE/OUTPA TIENT VISIT, EST [facility], [address] [place], [id number], tel: [facility] [place] General follow up (chief complaint) hypertensi on (chief complaint) diabetes/t hyroid screen (chief complaint) mammogram (chief complaint) Body mass index (BMI) 38.0-38.9, adultBorderline systolic HTNScreening for diabetes mellitusScreeni ng for thyroid disorderOther screening mammogram 7 Osuji Nonyerem. [facility] [place], [facility], . tel: [phone] PREV VISIT, EST, AGE 40-64 [facility], [facility] [place], [id number], tel: Osmin [place] No Information 6 Osuji Nonyerem. [facility] [place], [facility], . tel: [phone] OFFICE/OUTPA TIENT VISIT, EST [facility], [facility], [place], [place], [id number], tel:000 [facility] Physical (chief complaint) preventive exam (chief complaint) rash (chief complaint) BP check (chief complaint) Body mass index (BMI) 40.0-44.9, adultEncounter for preventative adult health care exam with abnormal findingsScreeni ng for diabetes mellitusScreeni ng for thyroid disorderElevate d blood-pressure reading, without diagnosis of hypertensionPso riasis 6 Osuji Nonyerem. [facility] [place], [facility], [place]. tel: [phone] Family History Family Member Type Diagnosis Age At Onset No Information Payers Payer name Insurance type Covered alliance party ID Authoriza tiwilfredo(s) SELF PAY Category C [id number] Social History Type Description Quantity Date Captured [...] medication today Related to Borderline systolic HTN A1c today Related to Scree janice for [...] Related to Robert camacho for diabetes mellitus thyroid labs today Related [...]
[2024-08-25 09:16] VITALS: BP 112/60; PULSE 88; BMI 33.1
--- NOTE | 2024-08-25 09:16 | MHC.OFFVIS ---
Vital Signs 08/25/24 09:16 Height 5 ft 2 in Weight 180 lb 12.465 oz BMI 33.1 BP 112/60 Blood Pressure Location Lt brachial Position Sitting Pulse 88 Pulse Source Pulse Oximeter Intake Visit Reasons: 1 Yr follow up Big Data Analytics Lead Required: Yes Big Data Analytics Lead Services: Big Data Analytics Lead Offered & Declined Accompanied by: Daughter Allergies cornflower [Cornflower] Allergy (Unknown, Verified 07/17/24 09:24) ITCHY EYES/HIVES peach [PEACH] Allergy (Unknown, Verified 07/17/24 09:24) NATURAL FRUIT - MOUTH ITCHES cornell [cherries] Allergy (Verified 07/17/24 09:24) Unknown No Known Drug Allergies Allergy (Verified 07/17/24 09:24) none apples Allergy (Unknown, Uncoded 07/08/24 09:14) Unknown peanut Allergy (Unknown, Uncoded 07/08/24 09:14) Unknown Medication List - Last Reconciled 08/25/24 by Billy Malcolm MD albuterol sulfate 90 mcg/actuation (ProAir HFA) 2 puffs PO Q6H PRN aspirin 81 mg PO DAILY 30 days atorvastatin 40 mg PO BEDTIME blood pressure test kit-large As directed blood sugar diagnostic (FreeStyle Test strips) 4 times a day blood-glucose meter (FreeStyle [place] Lite kit) As directed budesonide-formoterol 160-4.5 mcg/actuation (Symbicort) 2 puffs PO calcium carbonate (Oyster Shell Calcium) 500 mg PO BID cholecalciferol (vitamin D3) 125 mcg PO QAM fenofibrate micronized 134 mg PO DAILY ferrous sulfate (FeroSul) 325 mg PO 3XW flash glucose scanning reader (FreeStyle Lakeisha 2 [place]) As directed flash glucose sensor (FreeStyle Lakeisha 2 Sensor kit) every 14 days gabapentin 100 mg PO BID insulin regular hum U-500 conc (Humulin R U-500 (Conc) Insulin Kwikpen) 250 units before breakfast ; 30 days lancets (FreeStyle Lancets) As directed lancets (TRUEplus Lancets) As directed losartan 25 mg PO QAM mirabegron ER (Myrbetriq) 25 mg PO QAM nebulizers As directed Oxygen Home Use As directed pantoprazole 20 mg PO DAILY pen needle, diabetic (BD Ultra-Fine Debbie Pen Needle) As directed once a day sertraline (Zoloft) 50 mg PO DAILY thiamine HCl (vitamin B1) 100 mg PO QAM trazodone 100 mg PO BEDTIME PRN HPI Comments Details: Shireen returns for follow-up. In the past, she was referred for evaluation because of abnormal EKG. With regard to cardiac history no previously documented myocardial infarction or any major concerns. She underwent workup with echocardiogram and coronary CTA which showed mild cardiomyopathy/mild CAD. Otherwise, she has many comorbidities including asthma/COPD/cirrhosis from alcohol excess/diabetes, dyslipidemia. Overall, she states she generally okay. No clear-cut anginal-type symptoms or other concerns. 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 Diabetes type 2, uncontrolled Surgical History Status post biopsy of thyroid gland History of colonoscopy (~2016) Hx of cataract extraction History of esophagogastroduodenoscopy (EGD) (~2020) Hx of cardiac cath (~12/2015) Hx of cholecystectomy (~1980) History of bladder surgery (~06/2019) Family History Father Esophageal cancer Mother Diabetes mellitus HTN (hypertension) Social History Household Members: Spouse Alcohol intake: current Alcohol intake frequency: 3 or more drinks per day Alcohol type: beer Patient Tobacco Use Status: Former Tobacco user Tobacco use type: Cigarette Years Smoked: Onset 27, 2ppd x 24yrs, 48pyh, quit 11/2012 Advance Directives Date on File: 11/18/15 Review of Systems Const Denies weakness ENT Denies dizziness Card Denies chest pain, Denies chest pain with activity, Denies syncope, Denies rapid heart rate, Denies pedal edema, Denies edema, Denies leg edema, Denies lightheadedness, Denies palpitations, Denies dyspnea, Denies dyspnea on exertion and Denies orthopnea Resp Denies cough, Denies dyspnea and Denies dyspnea on exertion GI Denies hematochezia and Denies change in stool character Musc Denies abnormal gait, Denies muscle cramps, Denies muscle weakness, Denies numbness, Denies radiating pain into limb and Denies tingling Neuro Denies abnormal gait, Denies dizziness, Denies syncope, Denies numbness, Denies tingling and Denies weakness Endo Denies palpitations Physical Exam Vital Signs: Last Vital Signs Pulse 88 08/25/24 09:16 BP 112/60 08/25/24 09:16 BMI result Body Mass Index 33.1 Const General: comfortable and no acute distress Orientation/consciousness: patient oriented x3 HEENT Other: Unremarkable Head: Yes normal to inspection Neck Neck: Yes normal visual inspection Chest Chest palpation & inspection: normal inspection of the chest Resp Auscultation: clear to auscultation bilaterally Cardio Palpation: normal PMI Heart sounds: S1 normal heart sound present, S2 normal heart sound present, no gallops, no murmurs and no rubs GI Palpation (GI): Soft to palpation Back/Spine/Pelvis Other: unremarkable Skin General skin exam: no rashes or lesions noted Neuro General: patient oriented x3 Extrem General: Yes normal to inspection Psych Mental Status: mental status grossly normal Assessment & Plan Assessment & Plan (1) CAD (coronary artery disease): Code(s): I25.10 - Atherosclerotic heart disease of [place] coronary artery without angina pectoris Category: Medical Plan: EKG has subtle T inversions in V1 to V3. In the coronary CTA minimal to mild stenosis noted somewhat diffusely including left main, LAD, circumflex and RCA. Mainly risk factor modification. Management of diabetes, dyslipidemia. (2) Cardiomyopathy: Code(s): I42.9 - Cardiomyopathy, unspecified Category: Medical Plan: In the past, mild cardiomyopathy with LVEF of 45-50% but repeat study shows it normalized. Could be related to alcohol. No specific interventions. (3) Excessive drinking alcohol: Code(s): F10.10 - Alcohol abuse, uncomplicated Category: Social Hx Plan: She states she drinks several beers essentially daily. In the coronary CTA, there is mention of cirrhosis in the noncardiac findings. We discussed about dangers from excessive alcohol use including liver issues among others. Strongly advised her to cut back and stopped. Plan Discussion Notes During the visit, I emphasized the significant risks associated with continued alcohol use, specifically concerning liver function and overall health. We discussed the plan for her appointment with PCP to address her alcohol cravings with medication. I reviewed the recent cardiac scan results showing mild plaque, which currently poses no immediate serious risk, allowing for the cessation of aspirin. Additionally, I reiterated the importance of managing her diabetes through lifestyle adjustments to reduce cardiovascular risk. Patient was informed and verbally consented to the use of an ambient scribe for clinic note documentation during this visit. Medications: Discontinued aspirin Discontinued Reason: Doctor's Order 81 mg PO DAILY 30 days 30 tabs 1RF Patient Instructions: - seek treatment for alcohol addiction. - Okay to stop aspirin. - Focus on healthy lifestyle changes for diabetes management. - Monitor your health and report any new or worsening symptoms promptly. - Regular follow-up appointments may be necessary to manage chronic conditions. Coding Level of Care Code Est Pt Level 3 (79636) Diagnoses CAD (coronary artery disease) I25.10 Cardiomyopathy I42.9 Excessive drinking alcohol F10.10
== END 2024-08-25 09:41 | disposition home or self-care (01) ==
LOC: HO.HCS 09:00
PROVIDERS: PCP Student in an Organized Health Care Education/Training Program; Visit Provider Internal Medicine
DX: I25.10 Atherosclerotic heart disease of native coronary artery without angina pectoris (principal); I42.9 Cardiomyopathy, unspecified; F10.10 Alcohol abuse, uncomplicated
CPT/HCPCS: 99213

== ENCOUNTER → 2024-08-25 08:59 | Outpatient (BNVA) | payer OTHER, SELFPAY | PROVIDERS: PCP Student in an Organized Health Care Education/Training Program; Visit Provider Internal Medicine | DX: I25.10 Atherosclerotic heart disease of native coronary artery without angina pectoris (principal); I42.9 Cardiomyopathy, unspecified; F10.10 Alcohol abuse, uncomplicated | CPT/HCPCS: 99212 ==

== ENCOUNTER 2024-09-16 09:29 | Outpatient (AMB) | payer OTHER, SELFPAY ==
--- NOTE | 2024-09-16 09:36 | MHC.OFFVIS ---
Vital Signs 09/16/24 09:37 Height 5 ft 2 in Weight 180 lb BMI 32.9 Intake Visit Reasons: Inj-Left knee injection-last injection 05/20/24 Intake Note: Shireen is a 63 year old who presents with complaints of left knee pain. She describes her pain as sharp in nature. She has had cortisone injections in the past which gave her fairly good relief. She has done physical therapy exercises which aggravated her pain. She has also tried Tylenol and anti-inflammatory medicines which gave her minimal relief. She wishes to hold off on surgery if at all possible. Leather Belt Shaper Required: Yes Leather Belt Shaper Language: [employer] Folder Operator Services: Leather Belt Shaper Offered & Declined Allergies cornflower [Cornflower] Allergy (Unknown, Verified 09/16/24 09:37) ITCHY EYES/HIVES peach [PEACH] Allergy (Unknown, Verified 09/16/24 09:37) NATURAL FRUIT - MOUTH ITCHES cornell [cherries] Allergy (Verified 09/16/24 09:37) Unknown No Known Drug Allergies Allergy (Verified 09/16/24 09:37) none apples Allergy (Unknown, Uncoded 09/16/24 09:37) Unknown peanut Allergy (Unknown, Uncoded 09/16/24 09:37) Unknown Medication List - Last Reconciled 09/16/24 by Geo Tomlinson MD albuterol sulfate 90 mcg/actuation (ProAir HFA) 2 puffs PO Q6H PRN atorvastatin 40 mg PO BEDTIME blood pressure test kit-large As directed blood sugar diagnostic (FreeStyle Test strips) 4 times a day blood-glucose meter (FreeStyle [place] Lite kit) As directed budesonide-formoterol 160-4.5 mcg/actuation (Symbicort) 2 puffs PO calcium carbonate (Oyster Shell Calcium) 500 mg PO BID cholecalciferol (vitamin D3) 125 mcg PO QAM fenofibrate micronized 134 mg PO DAILY ferrous sulfate (FeroSul) 325 mg PO 3XW flash glucose scanning reader (FreeStyle Lakeisha 2 [place]) As directed flash glucose sensor (FreeStyle Lakeisha 2 Sensor kit) every 14 days gabapentin 100 mg PO BID insulin regular hum U-500 conc (Humulin R U-500 (Conc) Insulin Kwikpen) 250 units before breakfast ; 30 days lancets (FreeStyle Lancets) As directed lancets (TRUEplus Lancets) As directed losartan 25 mg PO QAM mirabegron ER (Myrbetriq) 25 mg PO QAM nebulizers As directed Oxygen Home Use As directed pantoprazole 20 mg PO DAILY pen needle, diabetic (BD Ultra-Fine Debbie Pen Needle) As directed once a day sertraline (Zoloft) 50 mg PO DAILY thiamine HCl (vitamin B1) 100 mg PO QAM trazodone 100 mg PO BEDTIME PRN PFSH Medical History CAD (coronary artery disease) Dyspnea Asthma-COPD overlap syndrome Alcohol use History of methadone use Personal history of nicotine dependence Asthma Obesity (BMI 30-39.9) GERD (gastroesophageal reflux disease) Cirrhosis Vitamin D deficiency Hypertension Dyslipidemia Non-toxic multinodular goiter Osteoporosis Diabetic 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 with type 2 diabetes mellitus 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 Diabetes type 2, uncontrolled Surgical History Status post biopsy of thyroid gland History of colonoscopy (~2016) Hx of cataract extraction History of esophagogastroduodenoscopy (EGD) (~2020) Hx of cardiac cath (~12/2015) Hx of cholecystectomy (~1980) History of bladder surgery (~06/2019) Family History Father Esophageal cancer Mother Diabetes mellitus HTN (hypertension) Social History Household Members: Spouse Alcohol intake: current Alcohol intake frequency: 3 or more drinks per day Alcohol type: beer Patient Tobacco Use Status: Former Tobacco user Tobacco use type: Cigarette Years Smoked: Onset 27, 2ppd x 24yrs, 48pyh, quit 11/2012 Advance Directives Date on File: 11/18/15 Physical Exam Vital Signs: BMI result Body Mass Index 32.9 Const Other: Well-nourished well-developed very friendly female awake alert and oriented x3 in no acute distress Extrem Other: Bilateral lower extremity examination shows good capillary refill, no skin lesions noted, normal sensation light touch Left knee examination shows a minimal effusion, palpable crepitus with range of motion, pain with range of motion, no instability Office Procedures AMB Joint Injection/Aspiration Joint Injection/Aspiration Primary Site: left knee Prep: site was prepped using aseptic technique Injected: 40 mg of, DepoMedrol and 1% plain lidocaine Procedure: The patient tolerated the procedure well Coding 06442 - Large joint Procedure code (CPT) selection complete Results Reviewed Results Reviewed: X-rays of the patient's left knee taken previously show joint space narrowing, subchondral sclerosis, no acute bony abnormalities Assessment & Plan Assessment & Plan (1) Arthritis of left knee: Code(s): M17.12 - Unilateral primary osteoarthritis, left knee Category: Medical Plan Ms. Tavarez presents with left knee pain due to degenerative joint disease. The risks and benefits of a left knee cortisone injection were discussed at length with the patient. The patient wished to proceed. She tolerated the injection well. She will continue with her home exercise program. She will contact me prior to her follow-up appointment in 3 months should any questions or concerns arise. Feel free to call me at any time should questions regarding her orthopedic management arise. I spent 20 minutes in reviewing the patient's records and imaging studies, seeing the patient and documenting in the medical record. Orders: Orders AMB Joint Injection/Aspiration Today M17.12 - Unilateral primary osteoarthritis, left knee Coding Level of Care Code Est Pt Level 3 (81138) Complex EM visit Add On G2211 Diagnoses Arthritis of left knee M17.12 CPT Codes Coding - 35555 Large joint: 54750 - Large joint ([id number])
[2024-09-16 09:37] VITALS: BMI 32.9
--- OUTSIDE RECORDS SUMMARY | 2024-09-16 10:25 | XMS_ITS | Encounter Summary ---
Author Organization [employer] Address 75 [facility] 7t [place] [address] Care Team Providers Care Asbestos Abatement Technician Name Role Phone Shireen Stout MD Primary Care Pro vider Reason for Visit * Reason Comments Med Refill Encounter Details Date Type Department Care Team (Late st Contact Info) Description 08/04/2024 Refill [facility] [address] [place], [place] [phone] Shireen Stout MD [address] [place], [place] [phone] Social History Tobacco Use Types Packs/Day Years [...] the past 12 months, has t he [employer], gas, oil or water company threatened to [...] Care Team (Late st Contact Info) Description 10/16/2024 9:30 AM EDT Office Visit [facility] [address] [place] [address] Shireen Stout MD [address] [place] [phone] 12/05/2024 1:00 PM EDT Office Visit [facility] [address] [place] [address] [phone] Terrence Avila MD [address] [place] [phone] documented as of this encounter Visit Diagnoses Not on filedocumented in this encounter Additional Health Concerns Assessment Noted Time PHQ-9 Depression Total Score: 3 03/05/20 24 9:07 AM EST documented as of this encounter Care Teams Asbestos Abatement Technician Relationship Specialty Start Date End Date Shireen Stout MD [address] [place] [phone] PCP - General Internal Medicine 09/08/22 documented as of this encounter
== END 2024-09-16 10:16 | disposition home or self-care (01) ==
LOC: HO.HOS 09:30
PROVIDERS: PCP Student in an Organized Health Care Education/Training Program; Visit Provider Orthopaedic Surgery
DX: M17.12 Unilateral primary osteoarthritis, left knee (principal)
CPT/HCPCS: 20610; 99213

== ENCOUNTER → 2024-09-16 09:29 | Outpatient (BNVA) | payer OTHER, SELFPAY | PROVIDERS: PCP Student in an Organized Health Care Education/Training Program; Visit Provider Orthopaedic Surgery | DX: M17.12 Unilateral primary osteoarthritis, left knee (principal) | CPT/HCPCS: 20610; 99212; J1010; J2003 ==

== ENCOUNTER 2024-09-19 15:34 | Outpatient (REF) | payer OTHER, SELFPAY ==
--- NOTE | ~2024-09-19 | US_ITS ---
EXAMINATION: US THYROID CLINICAL INFORMATION: Thyroid nodules. Thyroid FNA 10/16/2017, benign as per patient. COMPARISON: 05/17/2022. 06/30/2020. TECHNIQUE: Linear transducer grayscale and color Doppler examination with attention to the region of the thyroid. FINDINGS: SIZE: Measurements of the thyroid lobes and nodules are given in sagittal, anteroposterior and transverse dimensions respectively. Right Thyroid Lobe: 3.2 x 0.8 x 0.8 cm, volume 1.1 mL. (Previously 1.0 mL) Parenchyma: The gland echotexture is homogeneous. Thyroid vascularity is normal. Left Thyroid Lobe: 5.5 x 2.9 x 2.2 cm, volume 18.0 mL. (Previously 18.2 mL) Parenchyma: The gland echotexture is heterogeneous. Thyroid vascularity is normal. Isthmus: 0.2 cm in maximum AP dimension. Estimated total number of nodules greater than or equal to 1 cm: 1. Compound Finisher nodules are described as follows: 1. Location: Left midpole. Size: 3.2 x 2.5 x 2.6 cm, volume 10.8 mL. (Previously measuring 10.3 mL) Nodule characteristics: Composition: Solid/almost completely solid (2). Echogenicity: Hypoechoic (2). Shape: Not taller than wide (0). Margins: Ill-defined (0). Echogenic Foci: Macrocalcifications (1). ACR TI-RADS total points: 5 ACR TI-RADS category: 4 (previously also designated TR category 4) NODES: No lymphadenopathy is seen in the tissue surrounding the thyroid gland. US/US thyroid IMPRESSION: 1. Essentially stable 3.2 cm TR category 4 nodule left midpole. 2. Mildly atrophic right thyroid lobe, unchanged. 3. No new nodules. ACR TI-RADS RECOMMENDATION REFERENCE: Ultrasound-guided fine-needle aspiration, followup ultrasound, no further follow up. * TR1 (0 point) and TR2 (2 points): No FNA or follow up. * TR3 (3 points): FNA if more than or equal to 2.5 cm in maximum dimension, followup ultrasound in 1, 3 and 5 years if 1.5 to 2.4 cm in maximum dimension. * TR4 (4-6 points): FNA if more than or equal to 1.5 cm in maximum dimension, followup ultrasound in 1, 2, 3 and 5 years if 1 to 1.4 cm in maximum dimension. * TR5 (more than or equal to 7 points): FNA if more than or equal to 1 cm in maximum dimension, followup ultrasound every year for 5 years if 0.5 to 0.9 cm in maximum dimension. * TR3, TR4 or TR5 nodules that are below the size threshold for followup receive no follow up. Electronically signed by: Manjeet Cee MD 09/22/2024 09:49 AM EDT
--- OUTSIDE RECORDS SUMMARY | 2024-09-19 15:36 | XMS_ITS | Encounter Summary ---
Author Organization [employer] Address 75 [facility] [address]t [place] [address] Care Team Providers Care Furrier Shop Supervisor Name Role Phone Shireen Stout MD Primary Care Pro vider Reason for Visit * Reason Comments Med Refill Encounter Details Date Type Department Care Team (Late st Contact Info) Description 08/04/2024 Refill [facility] [address] [place], [place] [phone] Shireen Stout MD [address] [place], [place] [phone] Social History Tobacco Use Types Packs/Day Years [...] the past 12 months, has t he [employer], gas, oil or water company threatened to [...] Care Team (Late st Contact Info) Description 11/26/2024 9:45 AM EDT Office Visit [facility] [address] [place] [phone] Shireen Stout MD [address] [place] [phone] 12/05/2024 1:00 PM EDT Office Visit [facility] [address] [place] [phone] Terrence Avila MD [address] [place] [phone] documented as of this encounter Visit Diagnoses Not on filedocumented in this encounter Additional Health Concerns Assessment Noted Time PHQ-9 Depression Total Score: 3 03/05/20 24 9:07 AM EST documented as of this encounter Care Teams Furrier Shop Supervisor Relationship Specialty Start Date End Date Shireen Stout MD [address] [place] [address] [phone] PCP - General Internal Medicine 09/08/22 documented as of this encounter
== END 2024-09-19 15:35 | disposition home or self-care (01) ==
LOC: HO.US 15:34
PROVIDERS: PCP Student in an Organized Health Care Education/Training Program; Visit Provider Student in an Organized Health Care Education/Training Program
DX: E04.1 Nontoxic single thyroid nodule (principal)
CPT/HCPCS: 76536

== ENCOUNTER 2024-09-19 16:51 | Emergency (ER) | payer OTHER, SELFPAY ==
--- NOTE | ~2024-09-19 | XR_ITS ---
CLINICAL HISTORY: Fall, left hip pain rule out fracture 3 view, pelvis and left hip Comparison: None Findings: The bones are intact. No significant arthritic change. The soft tissues are unremarkable. IMPRESSION: No acute findings. This document has been electronically signed by: Earl Griggs MD on 09/19/2024 20:49:26
--- NOTE | ~2024-09-19 | CT_ITS ---
CLINICAL HISTORY: Fall, neck pain rule out fracture CT cervical spine without contrast Comparison: None Findings: Normal vertebral body alignment. Multilevel disc space narrowing and endplate osteophyte formation, as well as facet hypertrophy. No acute fractures or dislocations. Near complete opacification of the right maxillary sinus. No acute findings on limited view of the intracranial contents. No cervical fluid collections or masses. No consolidation or effusion at the lung apices. IMPRESSION: No acute findings. This document has been electronically signed by: Earl Griggs MD on 09/19/2024 20:47:59
--- NOTE | ~2024-09-19 | CT_ITS ---
CLINICAL HISTORY: Fall, head strike, occipital hematoma, headache --- Additional Notes or Special Ins tructions: R O fracture, bleed CT head without contrast Comparison: None Findings: No intra-axial mass, midline shift, hydrocephalus, or acute hemorrhage. Age appropriate cerebral volume loss. Patchy low-density within the periventricular and subcortical white matter. Near complete opacification of the right maxillary sinus. The orbits are within normal limits. There is no acute fracture. IMPRESSION: 1. No acute intracranial findings. 2. Right maxillary sinus disease. This document has been electronically signed by: Earl Griggs MD on 09/19/2024 20:20:25
--- NOTE | ~2024-09-19 | CT_ITS ---
CLINICAL HISTORY: Fall, neck pain CT maxillofacial without contrast Comparison: None Findings: No acute fractures. Temporomandibular joints are intact. Near complete opacification of the right maxillary sinus. Unremarkable orbital contents. Visualized intracranial contents are within normal limits. No foreign bodies. IMPRESSION: 1. No acute process. 2. Right maxillary sinus disease. This document has been electronically signed by: Earl Griggs MD on 09/19/2024 20:20:06
[2024-09-19 17:00] VITALS: PULSE 83; O2SAT 97
[2024-09-19 17:03] VITALS: BP 138/55; PULSE 81; RESP 18; TEMP 36.6; O2SAT 95; BMI 35.0
[2024-09-19 17:05] VITALS: BP 138/55; PULSE 80; RESP 20; TEMP 37.1; O2SAT 92
--- NOTE | 2024-09-19 18:43 | ED_ITS ---
HPI - Fall General Chief Complaint: Fall Stated Complaint: fall w/ head strike, no loc/thinners Time Seen by Provider: 09/19/24 18:33 Source: patient and family () Mode of arrival: EMS Limitations: language barrier History of Present Illness ED Provider: Dr. Doe Reed HPI Narrative: 63-year-old female with a history of coronary artery disease, asthma/COPD, GERD, cirrhosis, hypertension, dyslipidemia, osteoporosis, diabetes with diabetic neuropathy who presents emergency department for evaluation of injuries from a fall. According to her , the patient was here at the hospital for an ultrasound. When they were walking outside, the patient was using her walker, lost her balance and fell backwards striking her head. did not note any loss of consciousness. Patient is currently complaining of headache, neck pain, left hip and left leg pain. Related Data Home Medications ?Medication ?Instructions ?Recorded ?Confirmed fenofibrate micronized 134 mg 134 mg PO DAILY 03/16/20 09/16/24 capsule lancets 28 gauge (FreeStyle #100 ea 03/16/20 09/16/24 Lancets) sertraline 50 mg tablet (Zoloft) 50 mg PO DAILY 09/16/24 trazodone 100 mg tablet 100 mg PO BEDTIME PRN Insomn ia 03/16/20 09/16/24 budesonide-formoterol HFA 160 2 puff PO 02/25/2109/16 mcg-4.5 mcg/actuation aerosol inhaler (Symbicort) pantoprazole 20 mg tablet,delayed 20 mg PO DAILY 04/2809/16/24 release albuterol sulfate 90 mcg/actuation 2 puff PO Q6H PRN 0 06/03/21 09/16/24 aerosol inhaler (ProAir HFA) blood pressure test kit-large #1 ea 12/01/21 09/16/24 flash glucose scanning reader 12/01/21 09/16/24 (FreeStyle Lakeisha 2 [place]) flash glucose sensor (FreeStyle 12/01/21 09/16/24 Lakeisha 2 Sensor kit) losartan 25 mg tablet 25 mg PO QAM 12/01/21 lancets 33 gauge (TRUEplus Lancets) #100 ea 04/20/22 0 09/16/24 pen needle, diabetic 32 gauge x #50 ea 04/20/22 (BD Ultra-Fine Debbie Pen Needle) calcium carbonate (Oyster Shell 500 mg PO BID 02/15/23 09/16/24 Calcium) mirabegron 25 mg tablet,extended 25 mg PO QAM 02/15/23 09/16/24 release 24 hr (Myrbetriq) Oxygen Home Use 06/11/23 09/16/24 nebulizers 06/11/23 09/16/24 cholecalciferol (vitamin D3) 125 125 mcg PO QAM 09/16/24 mcg (5,000 unit) capsule ferrous sulfate 325 mg (65 mg 325 mg PO 3XW 08/09/23 0 09/16/24 iron) tablet (FeroSul) thiamine HCl (vitamin B1) 100 mg 100 mg PO QAM 4 09/16/24 tablet gabapentin 100 mg capsule 100 mg PO BID 08/25/2409/16 Previous Rx's ?Medication ?Instructions ?Recorded blood sugar diagnostic (FreeStyle #150 ea 09/28/20 Test strips) blood-glucose meter (FreeStyle #1 ea 06/24/21 [place] kit) insulin regular hum U-500 conc 500 See Rx Instructions subcut .Twice 11/23/22 unit/mL(3 mL) subcut pen (Humulin a day 30 days #6 mL R U-500 (Conc) Insulin Kwikpen) atorvastatin 40 mg tablet 40 mg PO BEDTIME #90 tabs Allergies Allergy/AdvReac Type Severity Reaction Status Date / Time cornflower (Cornflower) Allergy Unknown ITCHY Verified 09/19/24 17:04 EYES/HIVES peach (PEACH) Allergy Unknown NATURAL Verified 09/19/24 17:04 FRUIT - MOUTH ITCHES cornell (cherries) Allergy Unknown Verified 09/19/24 17:04 No Known Drug Allergies Allergy none Verified 09/19/24 17:04 apples Allergy Unknown Unknown Uncoded 09/16/24 09:37 peanut Allergy Unknown Unknown Uncoded 09/16/24 09:37 Review of Systems 2 Review of Systems: Yes all other systems are reviewed and are negative PMFSH Past Medical History Medical History CAD (coronary artery disease) Dyspnea Asthma-COPD overlap syndrome Alcohol use History of methadone use Personal history of nicotine dependence Asthma Obesity (BMI 30-39.9) GERD (gastroesophageal reflux disease) Cirrhosis Vitamin D deficiency Hypertension Dyslipidemia Non-toxic multinodular goiter Osteoporosis 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 Diabetes type 2, uncontrolled Surgical History Status post biopsy of thyroid gland History of colonoscopy (~2016) Hx of cataract extraction History of esophagogastroduodenoscopy (EGD) (~2020) Hx of cardiac cath (~12/2015) Hx of cholecystectomy (~1980) History of bladder surgery (~06/2019) Family History Family History Father Esophageal cancer Mother Diabetes mellitus HTN (hypertension) Social History Social History Household Members: Spouse Alcohol intake: current Alcohol intake frequency: 3 or more drinks per day Alcohol type: beer Patient Tobacco Use Status: Former Tobacco user Tobacco use type: Cigarette Years Smoked: Onset 27, 2ppd x 24yrs, 48pyh, quit 11/2012 Advance Directives Date on File: 02/28/21 Physical Exam 2 Vital Signs: Vital Signs: Last Vital Signs Temp 98.2 F 09/20/24 08:54 Pulse 88 09/20/24 08:54 Resp 18 09/20/24 08:54 BP 128/86 09/20/24 08:54 Pulse Ox 94 09/20/24 08:54 O2 Del Method Room Air 09/20/24 08:54 O2 Flow Rate 3 09/20/24 06:15 Oxygen Flow Rate 2 09/19/24 17:03 BMI result Body Mass Index 35.0 Vital signs were unremarkable. Exam: General: Awake, alert in no distress Head: Normocephalic, occipital hematoma which is tender to palpation, there is an abrasion over the hematoma but no suturable laceration EENT: PERRL, Lids normal, sclera normal, conjunctiva normal, nose normal , ears normal, throat without erythema or exudates Neck: Tenderness palpation over the trapezius muscles with no point tenderness over the cervical spine Lung: breath sounds symmetric, no wheezing, rales or rhonchi Chest: symmetric movement, nontender Heart: regular rate and rhythm, normal S1, S2 no murmurs or rubs Abdomen: soft, non-tender, nondistended, normal bowel sounds Back: no vertebral tenderness, no CVAT Extremities: no deformities, able to logroll and flex the hip however she has significant tenderness palpation over the left lateral hip area, no hematoma or ecchymosis noted Neuro: Awake, alert, oriented, normal speech, cranial nerves intact, moves all extremities symmetrically Psych: Pleasant, cooperative Course Course Course Narrative: September 20, 2024, 8:10 a.m. notified by nursing that the patient was seen and evaluated by Physical therapy and past her assessment. They are recommending discharge home with home services. The patient and her who is at the bedside feel comfortable with this plan. He will be transporting her home. Reviewed all labs and imaging, no acute process. H&H and LFTs at baseline. Medications Administered Discontinued Medications Generic Name Dose Route Start Last Admin Trade Name Freq PRN Reason Stop Dose Admin Acetaminophen 650 mg 09/19/24 21:50 09/20/24 07:45 Acetaminophen 325 Mg Tablet PO 650 mg Q4H PRN Administration Pain, Moderate(Pain Scale 4-6) Atorvastatin Calcium 40 mg 09/19/24 21:45 09/19/24 22:29 Atorvastatin Calcium 40 Mg Tablet PO 09/19/24 21:46 40 mg ONCE ONE Administration Insulin Human Lispro 0 unit 09/20/24 07:30 09/20/24 07:39 Insulin Lispro 100 Unit/Ml 3 Ml Vial SUBCUT 09/20/24 21:50 6 unit QIDACHS JONO Administration Protocol Insulin Human Lispro 5 unit 09/20/24 00:20 09/20/24 01:15 Insulin Lispro 100 Unit/Ml 3 Ml Vial SUBCUT 09/20/24 00:21 5 unit ONCE ONE Administration Morphine Sulfate 4 mg 09/19/24 18:43 09/19/24 19:13 Morphine Sulfate 4 Mg/Ml Cartridge IVPUSH 09/19/24 18:44 4 mg ONCE STA Administration Protocol Ondansetron HCl 4 mg 09/19/24 18:43 09/19/24 19:13 Ondansetron Hcl 4 Mg/2 Ml Vial IVPUSH 09/19/24 18:44 4 mg ONCE ONE Administration Trazodone HCl 200 mg 09/19/24 21:45 09/19/24 22:29 Trazodone Hcl 100 Mg Tablet PO 09/19/24 21:46 200 mg ONCE ONE Administration Medical Decision Making Medical Decision Making [facility] Narrative: 63-year-old female with a history of coronary artery disease, asthma/COPD, GERD, cirrhosis, hypertension, dyslipidemia, osteoporosis, diabetes with diabetic neuropathy who presents emergency department for evaluation of injuries from a fall. According to her , the patient was here at the hospital for an ultrasound. When they were walking outside, the patient was using her walker, lost her balance and fell backwards striking her head. did not note any loss of consciousness. Patient is currently complaining of headache, neck pain, left hip and left leg pain. Physical examination did reveal tenderness palpation of her head with a posterior occipital hematoma with a abrasion but no laceration. Patient also had tenderness palpation of her neck and pain with palpation over her left hip. Differential diagnosis: ?Includes but is not limited to skull fracture, intracranial bleed, cervical fracture, cervical sprain/contusion, left hip fracture, left hip contusion, anemia, electrolyte abnormalities Course: 21:14 Start physician observation My independent interpretation patient's laboratory evaluation is as follows: Normocytic anemia with an H&H of 10.2 and 33.0-she has had similar values in the past. Bicarb elevated 31. BUN and creatinine were normal. AST and ALT elevated 59 and 32-elevated in the past. Glucose elevated 290. CT scan of the patient's head, neck, face, cervical spine did not reveal any acute fractures which is reassuring. X-ray of the patient's left hip revealed no acute fractures. The patient was not able to stand and walk therefore she will be kept in the ED observation status for case management and physical therapy evaluation in the morning. Patient does not know what medications she is taking at this time in the is going to bring back her medication list in the morning. Patient states she does take trazodone 200 mg and atorvastatin 40 mg at night. She does not know her insulin doses therefore she will be placed on a sliding scale of insulin with point of care glucose monitoring q.i.d.. I will start the patient on Tylenol and oral morphine for her pain. Patient will be kept in physician observation until a disposition can be determined. I discussed code status with the patient and her . She wants to be a full code and she wants her to be her healthcare proxy. at 00:05, I was informed by the patient's nurse that the glucose is 298. Patient's next insulin dose is scheduled for tomorrow. At this time, we will give the patient 5 units of insulin lispro, subcu Time: 08:45 hours Date: 09/20/24 Provider: Doe Reed MD Physician observation ended at 08:45 hours. Patient was evaluated by the care team and by physical therapy. Physical therapy recommended short-term rehab however patient refused. Patient was discharged home and we will get home physical therapy. Admission/Observation Consideration of admission/observation: Escalation of care including admission/observation considered (Yes) Lab Data MDM Lab Attestation statement: I reviewed the patient's lab results. 09/19/24 19:09 09/19/24 19:09 Labs: Lab Results 09/19/24 09/19/24 09/20/24 Range/Units 19:09 22:06 00:06 WBC 8.5 (4.8-10.8) X10*3/uL RBC 3.82 L (4.20-5.50) X10*6/uL Hgb 10.2 L D (12.0-16.0) g/dl Hct 33.0 L (37.0-47.0) % MCV 86.4 (80.0-98.0) fL MCH 26.7 L (27.0-33.0) pg MCHC 30.9 L (31.0-35.0) g/dl RDW 15.9 (11.0-16.0) % Plt Count 255 (160-400) X10*3/uL MPV 10.4 (9.4-12.3) fL Immature Gran % (Auto) 1.4 H (0.0-0.4) % Neut % (Auto) 73.4 H (45-73) % Lymph % (Auto) 17.8 L (20-40) % [place] % (Auto) 5.9 (2-11) % Eos % (Auto) 1.1 (0-4) % Baso % (Auto) 0.4 (0-2) % Lymph # (Auto) 1.5 (1.2-4.9) X10*3/uL [place] # (Auto) 0.5 (0.1-1.2) X10*3/uL Eos # (Auto) 0.1 (0.0-0.4) X10*3/uL Baso # (Auto) 0.0 (0.0-0.2) X10*3/uL Abs Immat Gran (auto) 0.12 H (0.00-0.03) X10*3/uL Absolute Neuts (auto) 6.2 (2.0-8.3) x10*3/uL Absolute Nucleated RBC 0.000 (0.0-0.012) X10*3/uL Nucleated RBC % (auto) 0.0 (0.0-0.2) /100WBC PT 13.4 H (10.9-12.4) SEC INR 1.2 H (0.9-1.1) Sodium 139 (135-145) mmol/L Potassium 4.6 (3.3-5.1) mmol/L Chloride 100 (96-108) mmol/L Carbon Dioxide 31 H (22-29) mmol/L Anion Gap 13 (12-20) BUN 9 (9-16) mg/dL Creatinine 0.79 (0.5-1.4) mg/dL Estim Creat Clear Calc 69.8 Estimated GFR > 60 POC Glucose 288 H 298 H (60-115) mg/dL Random Glucose 290 H (60-115) mg/dL Calcium 9.3 D (8.4-10.2) mg/dL Magnesium 1.7 (1.6-2.6) mg/dL Total Bilirubin 0.6 (0.0-1.0) mg/dL AST 59 H (5-31) U/L ALT 32 H (0-31) U/L Alkaline Phosphatase 46 (39-117) U/L Total Protein 8.0 (6.5-8.0) g/dL Albumin 4.5 (3.5-5.0) g/dL 09/20/24 Range/Units 07:24 WBC (4.8-10.8) X10*3/uL RBC (4.20-5.50) X10*6/uL Hgb (12.0-16.0) g/dl Hct (37.0-47.0) % MCV (80.0-98.0) fL MCH (27.0-33.0) pg MCHC (31.0-35.0) g/dl RDW (11.0-16.0) % Plt Count (160-400) X10*3/uL MPV (9.4-12.3) fL Immature Gran % (Auto) (0.0-0.4) % Neut % (Auto) (45-73) % Lymph % (Auto) (20-40) % [place] % (Auto) (2-11) % Eos % (Auto) (0-4) % Baso % (Auto) (0-2) % Lymph # (Auto) (1.2-4.9) X10*3/uL [place] # (Auto) (0.1-1.2) X10*3/uL Eos # (Auto) (0.0-0.4) X10*3/uL Baso # (Auto) (0.0-0.2) X10*3/uL Abs Immat Gran (auto) (0.00-0.03) X10*3/uL Absolute Neuts (auto) (2.0-8.3) x10*3/uL Absolute Nucleated RBC (0.0-0.012) X10*3/uL Nucleated RBC % (auto) (0.0-0.2) /100WBC PT (10.9-12.4) SEC INR (0.9-1.1) Sodium (135-145) mmol/L Potassium (3.3-5.1) mmol/L Chloride (96-108) mmol/L Carbon Dioxide (22-29) mmol/L Anion Gap (12-20) BUN (9-16) mg/dL Creatinine (0.5-1.4) mg/dL Estim Creat Clear Calc Estimated GFR POC Glucose 299 H (60-115) mg/dL Random Glucose (60-115) mg/dL Calcium (8.4-10.2) mg/dL Magnesium (1.6-2.6) mg/dL Total Bilirubin (0.0-1.0) mg/dL AST (5-31) U/L ALT (0-31) U/L Alkaline Phosphatase (39-117) U/L Total Protein (6.5-8.0) g/dL Albumin (3.5-5.0) g/dL Radiology Impression Discussion of test interpretation with radiology: I have reviewed the radiologist's reading. Radiologist Impression: 3 view, pelvis and left hip Comparison: None Findings: The bones are intact. No significant arthritic change. The soft tissues are unremarkable. IMPRESSION: No acute findings. This document has been electronically signed by: Earl Griggs MD on 09/19/2024 20:49:26 CT cervical spine without contrast Comparison: None Findings: Normal vertebral body alignment. Multilevel disc space narrowing and endplate osteophyte formation, as well as facet hypertrophy. No acute fractures or dislocations. Near complete opacification of the right maxillary sinus. No acute findings on limited view of the intracranial contents. No cervical fluid collections or masses. No consolidation or effusion at the lung apices. IMPRESSION: No acute findings. This document has been electronically signed by: Earl Griggs MD on 09/19/2024 20:47:59 CT head without contrast Comparison: None Findings: No intra-axial mass, midline shift, hydrocephalus, or acute hemorrhage. Age appropriate cerebral volume loss. Patchy low-density within the periventricular and subcortical white matter. Near complete opacification of the right maxillary sinus. The orbits are within normal limits. There is no acute fracture. IMPRESSION: 1. No acute intracranial findings. 2. Right maxillary sinus disease. This document has been electronically signed by: Earl Griggs MD on 09/19/2024 20:20:25 CT maxillofacial without contrast Comparison: None Findings: No acute fractures. Temporomandibular joints are intact. Near complete opacification of the right maxillary sinus. Unremarkable orbital contents. Visualized intracranial contents are within normal limits. No foreign bodies. IMPRESSION: 1. No acute process. 2. Right maxillary sinus disease. This document has been electronically signed by: Earl Griggs MD on 09/19/2024 20:20:06 External Record Review External record reviewed: Office record Chronic Conditions Patient?s care impacted by: Diabetes and Other (Coronary artery disease, hyperlipidemia) Discharge Plan Discharge Clinical Impression: Fall, Closed head injury, Acute neck sprain, Contusion of left hip Patient Disposition: Home, Self-Care Instructions: Head Injury (ED) Additional Instructions: Continue to closely monitor your glucose levels. Tylenol as directed, available [id number] for pain. Follow-up with your primary care provider. Call this week to schedule a follow- up appointment. Return to the emergency department if you have any worsening of symptoms, or any concerns. Get well soon! Prescriptions: No Action (DME) blood-glucose meter [FreeStyle [place] Lite] Kit See Rx Instructions .Route Qty: 1 0RF Rx Instructions: As directed atorvastatin 40 mg tablet 40 mg PO BEDTIME Qty: 90 1RF budesonide-formoterol [Symbicort] 160-4.5 mcg/actuation HFA aerosol inhaler 2 puff PO (DME) lancets [FreeStyle Lancets] 28 gauge misc See Rx Instructions .ROUTE .MEDSUPPLY Qty: 100 Rx Instructions: As directed fenofibrate micronized 134 mg capsule 134 mg PO DAILY sertraline [Zoloft] 50 mg tablet 50 mg PO DAILY trazodone 100 mg tablet 100 mg PO BEDTIME PRN (Reason: Insomnia) gabapentin 100 mg capsule 100 mg PO BID (DME) FreeStyle Test Strip See Rx Instructions .ROUTE .MEDSUPPLY Qty: 150 6RF Rx Instructions: 4 times a day albuterol sulfate [ProAir HFA] 90 mcg/actuation HFA aerosol inhaler 2 puff PO Q6H PRN (DME) lancets [TRUEplus Lancets] 33 gauge misc See Rx Instructions .ROUTE BID Qty: 100 Rx Instructions: As directed pantoprazole 20 mg tablet,delayed release (DR/EC) 20 mg PO DAILY (DME) FreeStyle Lakeisha 2 Sensor Kit See Rx Instructions .Route Rx Instructions: every 14 days (DME) FreeStyle [place]isha 2 [place] Misc See Rx Instructions .Route Rx Instructions: As directed losartan 25 mg tablet 25 mg PO QAM (DME) blood pressure test kit-large Kit See Rx Instructions .ROUTE DIRECTED Qty: 1 Rx Instructions: As directed (DME) pen needle, diabetic [BD Ultra-Fine Debbie Pen Needle] 32 gauge x 5/32 needle See Rx Instructions .ROUTE BID Qty: 50 Rx Instructions: As directed once a day Myrbetriq 25 mg tablet extended release 24 hr 25 mg PO QAM calcium carbonate [Oyster Shell Calcium] 500 mg calcium (1,250 mg) tablet 500 mg PO BID (DME) Oxygen Home Use Kit See Rx Instructions .Route Rx Instructions: As directed (DME) nebulizers Misc See Rx Instructions .Route Rx Instructions: As directed Humulin R U-500 (Conc) Kwikpen 500 unit/mL (3 mL) insulin pen See Rx Instructions subcut .Twice a day 30 Days Qty: 6 6RF Rx Instructions: 250 units before breakfast ; cholecalciferol (vitamin D3) 125 mcg (5,000 unit) capsule 125 mcg PO QAM ferrous sulfate [FeroSul] 325 mg (65 mg iron) tablet 325 mg PO 3XW thiamine HCl (vitamin B1) 100 mg tablet 100 mg PO QAM Referrals: [facility] [Outside] Interventions: ED Discharge Assessment Last Done: 09/20/24 08:54 Discharge Date/Time: 09/20/24 08:55 Print Language: Frisian
[2024-09-19 19:13] LABS: MANUAL DIFF FLAG NO
[2024-09-19] MEDS: ondansetron HCL 4 MG/2 ML VIAL IVPUSH (19:13)
[2024-09-19] MEDS: Morphine Sulfate 4 MG/ML CARTRIDGE IVPUSH (19:13)
[2024-09-19 19:22] LABS: INTERNATIONAL NORM RATIO 1.2 (0.9-1.1); Prothrombin Time 13.4 SEC (10.9-12.4)
[2024-09-19 19:29] LABS: Alanine Aminotransferase 32 U/L (0-31); Albumin Level 4.5 g/dL (3.5-5.0); Alkaline Phosphatase 46 U/L (39-117); Anion Gap 13 (12-20); Aspartate Amino Transferase 59 U/L (5-31); Bilirubin Total 0.6 mg/dL (0.0-1.0); Blood Urea Nitrogen 9 mg/dL (9-16); Calcium 9.3 mg/dL (8.4-10.2); Carbon Dioxide 31 mmol/L (22-29); Chloride 100 mmol/L (96-108); Creatinine Clr Calc Pharmacy 69.8; Estimated Glomerular Filt Rate > 60; Glucose Random 290 mg/dL (60-115); Magnesium 1.7 mg/dL (1.6-2.6); Potassium 4.6 mmol/L (3.3-5.1); Sodium 139 mmol/L (135-145)
[2024-09-19 19:39] LABS: Basophils Percent Auto 0.4 % (0-2); Eosinophils Absolute Auto 0.1 X10*3/uL (0.0-0.4); Eosinophils Percent Auto 1.1 % (0-4); Hemoglobin 10.2 g/dl (12.0-16.0); Imm Gran Abs Auto 0.12 X10*3/uL (0.00-0.03); Imm Gran Pct Auto 1.4 % (0.0-0.4); Lymphocytes Absolute Auto 1.5 X10*3/uL (1.2-4.9); Lymphocytes Percent Auto 17.8 % (20-40); Mean Corpuscular HGB Conc 30.9 g/dl (31.0-35.0); Mean Corpuscular Hemoglobin 26.7 pg (27.0-33.0); Mean Corpuscular Volume 86.4 fL (80.0-98.0); Mean Platelet Volume 10.4 fL (9.4-12.3); Monocytes Absolute Auto 0.5 X10*3/uL (0.1-1.2); Monocytes Percent Auto 5.9 % (2-11); Neutrophils Absolute Auto 6.2 x10*3/uL (2.0-8.3); Neutrophils Percent Auto 73.4 % (45-73); Platelet Count 255 X10*3/uL (160-400); Red Blood Count 3.82 X10*6/uL (4.20-5.50); Red Cell Distribution Width 15.9 % (11.0-16.0); White Blood Count 8.5 X10*3/uL (4.8-10.8)
[2024-09-19 20:00] VITALS: BP 131/52; PULSE 85; RESP 22; TEMP 36.7; O2SAT 91
[2024-09-19 22:08] VITALS: BP 134/62; PULSE 80; RESP 16; TEMP 36.3; O2SAT 93
[2024-09-19 22:29] LABS: Glucose, Whole Blood 288 mg/dL (60-115)
[2024-09-19] MEDS: traZODone HCL 100 MG TABLET 200 MG PO (22:29)
[2024-09-19] MEDS: Atorvastatin Calcium 40 MG TABLET PO (22:29)
--- NOTE | 2024-09-19 22:47 | MHC.CM.ED ---
CM met with patient in regards to discharge planning.Interview in Irish. Pt did not require an early morning. Pt lives with her . Uses a walker. Has no current services, however she will have a HEAD COACH on November 26. Her granddaughter. PCP and insurance verified. HCP is on file. PT is pending. Will make local referrals contracted with [facility]. CM will follow for discharge planning.
[2024-09-19 23:39] VITALS: BP 113/50; PULSE 81; RESP 18; TEMP 36.8; O2SAT 94
[2024-09-20 00:11] LABS: Glucose, Whole Blood 298 mg/dL (60-115)
--- NOTE | 2024-09-20 00:15 | PC.NURSE ---
THIS RN ASSUMED CARE OF PT @ 23[address] DR WATTS MADE AWARE OF POC 298 AWAITING NEW ORDERS NOW
[2024-09-20] MEDS: Insulin Lispro 100 UNIT/ML 3 ML VIAL SUBCUT ×2 (01:15→07:39)
--- NOTE | 2024-09-20 02:20 | PC.NURSE ---
IV on R AC removed due to not flushing/ working.
[2024-09-20 02:56] VITALS: RESP 16; O2SAT 97
--- NOTE | 2024-09-20 02:56 | PC.NURSE ---
Resumed care of patient at 0300, Pt is currently resting comfortably, NC in place, O2 98% on 2L, this RN turned O2 down to 1L and has maintained sats above 95%. Call aburto within reach, all safety measures in place at this time.
--- NOTE | 2024-09-20 04:00 | PC.NURSE ---
This RN helped pt use the bedpan, pt was laying flat in bed and lifted her hips up, at this time pt O2 dropped to 83%, pt O2 NC turned up to 3L, pt remained asymptomatic, pt helped off the bedpan, boosted up in bed, O2 recovered to 93% shortly after. Slight cough noted with small amount of phlegm. Pt remains asymptomatic at this time, requesting PO intake.
[2024-09-20 04:01] VITALS: RESP 18; O2SAT 84
[2024-09-20 04:02] VITALS: RESP 16; O2SAT 93
[2024-09-20 06:15] VITALS: BP 125/88; PULSE 80; RESP 18; TEMP 37.1; O2SAT 96
[2024-09-20 07:29] LABS: Glucose, Whole Blood 299 mg/dL (60-115)
[2024-09-20] MEDS: Acetaminophen 325 MG TABLET 650 MG PO (07:45)
--- NOTE | 2024-09-20 07:46 | PC.NURSE ---
patient a&ox3, vss, rr equal/non labored, lungs diminished, pt medicated for 6/10 hip pain. family at bedside, PT wanting to do eval but will come back after pt finishes breakfast, call aburto within reach, plan of care ongoing
--- NOTE | 2024-09-20 07:55 | PC.NURSE ---
pt/ pt was suggested str by PT which was refused, so its suggested to have PT in the home which adult protective caseworker was made aware of.
[2024-09-20 07:59] VITALS: BP 125/88; PULSE 80; O2SAT 96
--- NOTE | 2024-09-20 08:15 | MHC.CM.ED ---
Addendum entered by Quin Betancur 09/20/24 10:58: Correction: [facility] is only agency able to accept patient. Not [facility]. Addendum entered by Quin Betancur 09/20/24 10:39: [facility] is only agency able to accept patient at this time. Original Note: Patient remains in ER. Physical therapy eval completed. Home services is recommended. Met with patient and , Frank. Both agreeable to patient to d/c home with [facility]. Referral will be broadcasted to all agencies contracted with patient's insurance. Frank will transport patient home. Bing GONZALES and Dashawn PETE aware. Continue to monitor for d/c needs.
[2024-09-20 08:54] VITALS: BP 128/86; PULSE 88; RESP 18; TEMP 36.8; O2SAT 94
== END 2024-09-20 08:55 | disposition home or self-care (01) ==
PROVIDERS: Emergency Provider Emergency Medicine Emergency Medical Services; PCP Student in an Organized Health Care Education/Training Program
DX: S09.90XA Unspecified injury of head, initial encounter (principal); S13.9XXA Sprain of joints and ligaments of unspecified parts of neck, initial encounter; S70.02XA Contusion of left hip, initial encounter; W19.XXXA Unspecified fall, initial encounter; Y93.9 Activity, unspecified; Y92.9 Unspecified place or not applicable; Y99.9 Unspecified external cause status; E11.9 Type 2 diabetes mellitus without complications; I10 Essential (primary) hypertension; Z79.4 Long term (current) use of insulin; Z79.899 Other long term (current) drug therapy
CPT/HCPCS: 36415; 70450; 70486; 72125; 73502; 80053; 82947; 83735; 85025; 85610; 96374; 96375; 97162; 99285; J2270; J2405

== ENCOUNTER → 2024-09-19 18:44 | Outpatient (BNV) | payer OTHER, SELFPAY | PROVIDERS: Emergency Provider Emergency Medicine Emergency Medical Services; PCP Student in an Organized Health Care Education/Training Program; Visit Provider Radiology Diagnostic Radiology | DX: M50.30 Other cervical disc degeneration, unspecified cervical region (principal) | CPT/HCPCS: 70450; 70486; 72125; 73502; 76536 ==

== ENCOUNTER 2024-09-24 16:19 | Emergency (ER) | payer OTHER, SELFPAY ==
--- NOTE | ~2024-09-24 | CT_ITS ---
CLINICAL HISTORY: Headache, confusion, fluid leak from left ear --- Additional Notes or Special Instructions: Status post fall [address] head without contrast Comparison: CT/SR - CT HEAD/BRAIN WO IV CON - 09/19/24 19:27 EDT Findings: Scattered subcortical and periventricular hypoattenuation, likely in keeping with chronic small vessel ischemic disease. Parenchymal volume loss with compensatory prominence of the ventricles and CSF spaces. No acute territorial infarction, intracranial hemorrhage, midline shift or hydrocephalus. Mineralization in the basal ganglia noted. Chronic right maxillary sinusitis. Opacification in the right anterior ethmoidal air cells. Mastoid air cells are clear. The orbits are within normal limits. There is no acute fracture. Bilateral lens extraction. IMPRESSION: 1. No acute intracranial abnormality. 2. Additional findings as described. This document has been electronically signed by: Prabhakar Fernando MD on 09/24/2024 19:40:49
--- NOTE | ~2024-09-24 | CT_ITS ---
CLINICAL HISTORY: FALL, LEAKING FROM EAR CT temporal bone without contrast Comparison: None provided Findings: Linear debris in the right external auditory canal, nonspecific. Intact middle ear ossicles. Unremarkable cochlea and semicircular canals. Temporomandibular joints are intact. Orbital contents within normal limits. Partially redemonstrated chronic right maxillary sinusitis and opacification in the right anterior ethmoidal air cells. No foreign bodies. IMPRESSION: Unremarkable temporal bone CT. This document has been electronically signed by: Prabhakar Fernando MD on 09/24/2024 19:52:45
[2024-09-24 16:30] VITALS: BP 136/74; PULSE 77; O2SAT 92
[2024-09-24 17:12] VITALS: BP 145/77; PULSE 78; RESP 20; TEMP 36.9; O2SAT 92; BMI 32.8
--- NOTE | 2024-09-24 17:29 | ED.GENADULT ---
HPI - General Adult General Chief complaint: General Medical Stated complaint: back pain, dizziness, fam states out of baseline Time Seen by Provider: 09/24/24 16:26 Source: patient Mode of arrival: EMS Limitations: language barrier ( Guyanese speaking only, [facility] gas station manager used, daughter speaks both Guyanese and Moldovan) History of Present Illness ED Provider: Dr. Doe Reed HPI narrative: <del>63-year-old</del> <del>female</del> <del>with</del> <del>a</del> <del>history</del> <del>of</del> <del>coronary</del> <del>artery</del> <del>disease,</del> <del>asthma/COPD,</del> <del>GERD,</del> <del>cirrhosis,</del> <del>hypertension,</del> <del>dyslipidemia,</del> <del>osteoporosis,</del> <del>diabetes</del> <del>with</del> <del>diabetic</del> <del>neuropathy</del> <del>who</del> <del>presents</del> <del>emergency</del> <del>department</del> <del>for</del> <del>evaluation</del> <del>increased</del> <del>lethargy,</del> <del>confusion,</del> <del>feeling</del> <del>not</del> <del>herself,</del> <del>bilateral</del> <del>pressure-like</del> <del>headache</del> <del>which</del> <del>is</del> <del>8/10,</del> <del>clear</del> <del>fluid</del> <del>draining</del> <del>from</del> <del>the</del> <del>left</del> <del>ear</del> <del>status</del> <del>post</del> <del>6</del> <del>days</del> <del>after</del> <del>a</del> <del>head</del> <del>injury</del> <del>from</del> <del>a</del> <del>fall.</del> <del>Patient</del> <del>was</del> <del>seen</del> [facility]del[facility] <del[facility]by</del> <del>me</del> <del>on</del> <del>09/19/2024</del> <del>for</del> <del>a</del> <del>backwards</del> <del>fall</del> <del>that</del> <del>happened</del> <del>in</del> <del>our</del> <del>hospital</del> <del>parking</del> <del>lot</del> <del>-the</del> <del>patient</del> <del>is</del> <del>coming</del> <del>for</del> <del>a</del> <del>scheduled</del> <del>ultrasound..</del> <del>The</del> <del>patient</del> <del>was</del> <del>walking</del> <del>with</del> <del>her</del> <del>walker,</del> <del>lost</del> <del>her</del> <del>balance,</del> <del>fell</del> <del>backwards</del> <del>and</del> <del>struck</del> <del>her</del> <del>head.</del> <del>At</del> <del>that</del> <del>time,</del> <del>the</del> <del>patient</del> <del>did</del> <del>not</del> <del>report</del> <del>any</del> <del>loss</del> <del>of</del> <del>consciousness.</del> <del>She</del> <del>had</del> <del>a</del> <del>CT</del> <del>scan</del> <del>of</del> <del>the</del> <del>head</del> <del>and</del> <del>cervical</del> <del>spine</del> <del>which</del> <del>was</del> <del>negative.</del> <del>Patient</del> <del>initially</del> <del>did</del> <del>not</del> <del>feel</del> <del>like</del> <del>she</del> <del>could</del> <del>go</del> <del>home,</del> <del>was</del> <del>placed</del> <del>in</del> <del>physician</del> <del>observation,</del> <del>seen</del> <del>by</del> <del>physical</del> <del>therapy</del> <del>who</del> <del>recommended</del> <del>short-term</del> <del>rehab</del> <del>but</del> <del>after</del> <del>observation</del> <del>in</del> <del>the</del> <del>emergency</del> <del>department,</del> <del>she</del> <del>felt</del> <del>better</del> <del>and</del> <del>was</del> <del>discharged</del> <del>home.</del> Related Data Home Medications ?Medication ?Instructions ?Recorded ?Confirmed fenofibrate micronized 134 mg 134 mg PO DAILY 03/16/20 09/16/24 capsule lancets 28 gauge (FreeStyle #100 ea 03/16/20 09/16/24 Lancets) sertraline 50 mg tablet (Zoloft) 50 mg PO DAILY 03/16/20 09/16/24 trazodone 100 mg tablet 100 mg PO BEDTIME PRN Insomnia 03/16/20 09/16/24 budesonide-formoterol HFA 160 2 puff PO 02/25/21 09/16/24 mcg-4.5 mcg/actuation aerosol inhaler (Symbicort) pantoprazole 20 mg tablet,delayed 20 mg PO DAILY 04/28/21 09/16/24 release albuterol sulfate 90 mcg/actuation 2 puff PO Q6H PRN 06/03/21 09/16/24 aerosol inhaler (ProAir HFA) blood pressure test kit-large #1 ea 12/01/21 09/16/24 flash glucose scanning reader 12/01/21 09/16/24 (FreeStyle Lakeisha 2 [place]) flash glucose sensor (FreeStyle 12/01/21 09/16/24 Lakeisha 2 Sensor kit) losartan 25 mg tablet 25 mg PO QAM 12/01/21 09/16/24 lancets 33 gauge (TRUEplus Lancets) #100 ea 04/20/22 09/16/24 pen needle, diabetic 32 gauge x #50 ea 04/20/22 09/16/24 (BD Ultra-Fine Debbie Pen Needle) calcium carbonate (Oyster Shell 500 mg PO BID 02/15/23 09/16/24 Calcium) mirabegron 25 mg tablet,extended 25 mg PO QAM 02/15/23 09/16/24 release 24 hr (Myrbetriq) Oxygen Home Use 06/11/23 09/16/24 nebulizers 06/11/23 09/16/24 cholecalciferol (vitamin D3) 125 125 mcg PO QAM 08/09/23 09/16/24 mcg (5,000 unit) capsule ferrous sulfate 325 mg (65 mg 325 mg PO 3XW 08/09/23 09/16/24 iron) tablet (FeroSul) thiamine HCl (vitamin B1) 100 mg 100 mg PO QAM 08/09/23 09/16/24 tablet gabapentin 100 mg capsule 100 mg PO BID 08/25/24 09/16/24 Previous Rx's ?Medication ?Instructions ?Recorded blood sugar diagnostic (FreeStyle #150 ea 09/28/20 Test strips) blood-glucose meter ([employer]Style #1 ea 06/24/21 [place] Lite kit) insulin regular hum U-500 conc 500 See Rx Instructions subcut .Twice 11/23/22 unit/mL(3 mL) subcut pen (Humulin a day 30 days #6 mL R U-500 (Conc) Insulin Kwikpen) atorvastatin 40 mg tablet 40 mg PO BEDTIME #90 tabs 05/08/23 diphenhydramine HCl 12.5 mg 12.5 mg PO Q6H PRN headache, 09/24/24 chewable tablet nausea or vomiting #14 tabs metoclopramide HCl 5 mg tablet 5 mg PO Q6H PRN headache,nausea 09/24/24 (Reglan) or vomiting #14 tabs Allergies Allergy/AdvReac Type Severity Reaction Status Date / Time cornflower (Cornflower) Allergy Unknown ITCHY Verified 09/24/24 17:14 EYES/HIVES peach (PEACH) Allergy Unknown NATURAL Verified 09/24/24 17:14 FRUIT - MOUTH ITCHES cornell (cherries) Allergy Unknown Verified 09/24/24 17:14 No Known Drug Allergies Allergy none Verified 09/24/24 17:14 apples Allergy Unknown Unknown Uncoded 09/16/24 09:37 peanut Allergy Unknown Unknown Uncoded 09/16/24 09:37 Review of Systems Review of Systems: Yes all other systems are reviewed and are negative [facility] Past Medical History [facility] Narrative: Social history: Patient lives at home with her He was here in the emergency department with the patient. Her [id number] is also here as well. The patient is a former smoker and quit smoking 14 years prior but has a 22 pack-year history of smoking. She denies alcohol use. She denies drug use. Medical History CAD (coronary artery disease) Dyspnea Asthma-COPD overlap syndrome Alcohol use History of methadone use Personal history of nicotine dependence Asthma Obesity (BMI 30-39.9) GERD (gastroesophageal reflux disease) Cirrhosis Vitamin D deficiency Hypertension Dyslipidemia Non-toxic multinodular goiter Osteoporosis Diabetic 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 with type 2 diabetes mellitus MCFP (current) use of insulin Diabetes type 2, uncontrolled Surgical History Status post biopsy of thyroid gland History of colonoscopy (~2017) Hx of cataract extraction History of esophagogastroduodenoscopy (EGD) (~2020) Hx of cardiac cath (~12/2015) Hx of cholecystectomy (~1980) History of bladder surgery (~06/2019) Family History Family History Father Esophageal cancer Mother Diabetes mellitus HTN (hypertension) Social History Social History Household Members: Spouse Alcohol intake: current Alcohol intake frequency: 3 or more drinks per day Alcohol type: beer Patient Tobacco Use Status: Former Tobacco user Tobacco use type: Cigarette Years Smoked: Onset 27, 2ppd x 24yrs, 48pyh, quit 11/2012 Smoked in Last 30 Days: No Use of substances other than those prescribed or required for medical reasons: No Advance Directives: Yes Advance Directives on File: Yes Advance Directives Date on File: 02/28/21 Do you have a plan to hurt others: No Plan Physical Exam ED Vital Signs: Vital Signs - 24 hr 09/24/24 17:12 09/24/24 18:00 09/24/24 20:29 Temperature 98.5 F 97.8 F Pulse Rate 78 77 75 Respiratory Rate 20 26 H 18 Blood Pressure 145/77 H 168/81 H Pulse Oximetry 92 90 L 94 Oxygen Delivery Method Nasal Cannula Nasal Cannula Nasal Cannula Oxygen Flow Rate 2 2 09/24/24 20:39 Temperature 98.3 F Pulse Rate 77 Respiratory Rate 20 Blood Pressure 172/57 H Pulse Oximetry 94 Oxygen Delivery Method Nasal Cannula Oxygen Flow Rate 2 BMI result Body Mass Index 32.8 Vital signs revealed an elevated blood pressure of 145/77 Exam: General: Awake, alert in no distress Head: Normocephalic, The patient has tenderness palpation of her temporal regions bilaterally with no ecchymosis or soft tissue swelling noted EENT: PERRL, Lids normal, sclera normal, conjunctiva normal, nose normal , ears: normal External exam, I do not see any fluid in the left or right auditory canals, throat without erythema or exudates Neck: Supple, no adenopathy Lung: breath sounds symmetric, no wheezing, rales or rhonchi Chest: symmetric movement, nontender Heart: regular rate and rhythm, normal S1, S2 no murmurs or rubs Abdomen: soft, non-tender, nondistended, normal bowel sounds Back: no vertebral tenderness, no CVAT Extremities: no deformities, moves all extremities symmetrically Neuro: Awake, alert, oriented, normal speech, cranial nerves intact, moves all extremities symmetrically Psych: Pleasant, cooperative Medications Administered Discontinued Medications Generic Name Dose Route Start Last Admin Trade Name Luma PRN Reason Stop Dose Admin Dextrose 25 gm 09/24/24 19:46 09/24/24 19:49 Dextrose 50 % 25 Gm/50 Ml Syringe IVPUSH 09/24/24 19:47 25 gm ONCE ONE Administration Diphenhydramine HCl 12.5 mg 09/24/24 17:41 09/24/24 18:18 Diphenhydramine Hcl 50 Mg/Ml Vial IVPUSH 09/24/24 17:42 12.5 mg ONCE STA Administration Sodium Chloride 1,000 mls @ 999 mls/hr 09/24/24 17:41 09/24/24 19:20 Ns IV 09/24/24 18:41 Infused .Q1H1M STA Infusion Metoclopramide HCl 5 mg 09/24/24 17:41 09/24/24 18:18 Metoclopramide Hcl 10 Mg/2 Ml Vial IVPUSH 09/24/24 17:42 5 mg ONCE STA Administration Medical Decision Making Medical Decision Making MDM Narrative: 63-year-old female with a history of coronary artery disease, asthma/COPD, GERD, cirrhosis, hypertension, dyslipidemia, osteoporosis, diabetes with diabetic neuropathy who presents emergency department for evaluation increased lethargy, confusion, feeling not herself, bilateral pressure-like headache which is 8/10, clear fluid draining from the left ear status post 6 days after a head injury from a fall. Patient was seen at [facility] by me on 09/19/2024 for a backwards fall that happened in our hospital parking lot -the patient is coming for a scheduled ultrasound.. The patient was walking with her walker, lost her balance, fell backwards and struck her head. vital signs revealed an elevated blood pressure otherwise unremarkable. Physical examination did not reveal any drainage from your ears on my exam, she does have tenderness palpation over the temporal regions bilaterally. Her neurologic exam was unremarkable. Differential diagnosis: Includes but is not limited to Skull fracture, temporal bone fracture with CSF leak, closed head injury with concussion, anemia, electrolyte abnormalities Course: 18:01 I ordered a laboratory evaluation, CT scan of the head without IV contrast and CT bilateral internal auditory canal to look for fracture. I also ordered normal saline IV x1 L, Reglan 5 mg and Benadryl 12.5 mg IV for her nausea and headache. 21:16 My independent interpretation patient's laboratory evaluation is as follows: Anemia with an H&H of 11.3 and 36.5. Elevated AST of 39. Coags were normal. Lipase was unremarkable. Urinalysis was negative. CT scan of head and CT internal auditory canal/temporal bone did not reveal any acute fractures which is reassuring. Patient did get improvement with the above treatment. Patient was discharged with a prescription for Reglan 5 mg, Benadryl 12.5 mg every 6 hours as needed for headache, nausea or vomiting. She was also advised to take Tylenol 650 mg every 6 hours as needed for pain. I did discuss my findings with the patient and her family and the patient was discharged in the care of her son and . Lab Data 09/24/24 18:06 09/24/24 18:06 Labs: Lab Results 09/24/24 Range/Units 18:06 WBC 8.8 (4.8-10.8) X10*3/uL RBC 4.33 (4.20-5.50) X10*6/uL Hgb 11.3 L (12.0-16.0) g/dl Hct 36.8 L (37.0-47.0) % MCV 85.0 (80.0-98.0) fL MCH 26.1 L (27.0-33.0) pg MCHC 30.7 L (31.0-35.0) g/dl RDW 16.5 H (11.0-16.0) % Plt Count 290 (160-400) X10*3/uL MPV 9.9 (9.4-12.3) fL Immature Gran % (Auto) 0.3 (0.0-0.4) % Neut % (Auto) 71.9 (45-73) % Lymph % (Auto) 19.9 L (20-40) % [place] % (Auto) 6.2 (2-11) % Eos % (Auto) 1.2 (0-4) % Baso % (Auto) 0.5 (0-2) % Lymph # (Auto) 1.8 (1.2-4.9) X10*3/uL [place] # (Auto) 0.6 (0.1-1.2) X10*3/uL Eos # (Auto) 0.1 (0.0-0.4) X10*3/uL Baso # (Auto) 0.0 (0.0-0.2) X10*3/uL Abs Immat Gran (auto) 0.03 (0.00-0.03) X10*3/uL Absolute Neuts (auto) 6.3 (2.0-8.3) x10*3/uL Absolute Nucleated RBC 0.000 (0.0-0.012) X10*3/uL Nucleated RBC % (auto) 0.0 (0.0-0.2) /100WBC PT 14.2 H (10.9-12.4) SEC INR 1.2 H (0.9-1.1) APTT 32.7 (26.0-36.8) SEC Sodium 143 (135-145) mmol/L Potassium 3.7 (3.3-5.1) mmol/L Chloride 104 (96-108) mmol/L Carbon Dioxide 28 (22-29) mmol/L Anion Gap 15 (12-20) BUN 6 L (9-16) mg/dL Creatinine 0.64 (0.5-1.4) mg/dL Estim Creat Clear Calc 89.9 Estimated GFR > 60 Random Glucose 97 (60-115) mg/dL Calcium 10.3 H D (8.4-10.2) mg/dL Magnesium 1.9 (1.6-2.6) mg/dL Total Bilirubin 0.9 (0.0-1.0) mg/dL AST 39 H (5-31) U/L ALT 25 (0-31) U/L Alkaline Phosphatase 50 (39-117) U/L Troponin I High Sens 14.0 (<3.5-17.0) ng/L Total Protein 8.8 H (6.5-8.0) g/dL Albumin 4.8 (3.5-5.0) g/dL Lipase < 4 L (8-78) U/L Urine Color Yellow Urine Appearance Clear Urine pH >= 9.0 (5.0-9.0) Ur Specific [place] <= 1.005 (1.005-1.025) Urine Protein Negative (Neg-Trace) mg/dL Urine Glucose (UA) Negative (Negative) mg/dL Urine Ketones Negative (Negative) mg/dL Urine Blood Negative (Negative) Urine Nitrite Negative (Negative) Ur Leukocyte Esterase Negative (Negative) Radiology Impression Discussion of test interpretation with radiology: I have reviewed the radiologist's reading. Radiologist Impression: [address] [address] [address] Scan Report Signed Patient: Shireen Tavarez MR#: [id number] : 1960 Acct:[id number] Age/Sex: 63 / F ADM Date: 09/24/24 Loc: HO.ED Attending Dr: Ordering Physician: Doe Reed MD Date of Service: 09/24/24 Procedure(s): CT head/brain wo IV con Accession Number(s): [id number] cc: Physician,Unknown ; Doe Reed MD~ Report Number: [id number]: Total DLP = 916.00 mGy-cm CLINICAL HISTORY: Headache, confusion, fluid leak from left ear --- Additional Notes or Special Instructions: Status post fall [address] head without contrast Comparison: CT/SR - CT HEAD/BRAIN WO IV CON - 09/19/24 19:27 EDT Findings: Scattered subcortical and periventricular hypoattenuation, likely in keeping with chronic small vessel ischemic disease. Parenchymal volume loss with compensatory prominence of the ventricles and CSF spaces. No acute territorial infarction, intracranial hemorrhage, midline shift or hydrocephalus. Mineralization in the basal ganglia noted. Chronic right maxillary sinusitis. Opacification in the right anterior ethmoidal air cells. Mastoid air cells are clear. The orbits are within normal limits. There is no acute fracture. Bilateral lens extraction. IMPRESSION: 1. No acute intracranial abnormality. 2. Additional findings as described. This document has been electronically signed by: Prabhakar Fernando MD on 09/24/2024 19:40:49 Dictated By: Prabhakar Fernando MD Discharge Plan Discharge Clinical Impression: Closed head injury, Concussion, Headache, Nausea, Weakness Patient Disposition: Home, Self-Care Instructions: Concussion (ED) Additional Instructions: The CT scan of the head revealed no skull fracture or bleed in the brain. The CT of the temporal bone revealed no broken bone around your ear. This is reassuring and I do not think the fluid coming out of the ear is due to a skull fracture. your symptoms are most likely related to your head injury and are caused by a severe concussion. Take Reglan ( metoclopramide) 5 mg pill and Benadryl 12.5 mg pill every 6 hours as needed for headache, nausea or vomiting. I also want you to take regular strength Tylenol 325 mg pills, 2 pills every 6 hours as needed for headache. Rest and your fluid intake. Continue taking your other medications as prescribed by your providers. Follow-up with your doctor in 2 days. Please return to the emergency department if your symptoms get worse or if you develop any symptoms that are concerning to you. Prescriptions: New metoclopramide HCl [Reglan] 5 mg tablet 5 mg PO Q6H PRN (Reason: headache,nausea or vomiting) Qty: 14 0RF diphenhydramine HCl 12.5 mg tablet,chewable 12.5 mg PO Q6H PRN (Reason: headache, nausea or vomiting) Qty: 14 0RF No Action (DME) blood-glucose meter [FreeStyle [place] Lite] Kit See Rx Instructions .Route Qty: 1 0RF Rx Instructions: As directed atorvastatin 40 mg tablet 40 mg PO BEDTIME Qty: 90 1RF budesonide-formoterol [Symbicort] 160-4.5 mcg/actuation HFA aerosol inhaler 2 puff PO (DME) lancets [FreeStyle Lancets] 28 gauge misc See Rx Instructions .ROUTE .MEDSUPPLY Qty: 100 Rx Instructions: As directed fenofibrate micronized 134 mg capsule 134 mg PO DAILY sertraline [Zoloft] 50 mg tablet 50 mg PO DAILY trazodone 100 mg tablet 100 mg PO BEDTIME PRN (Reason: Insomnia) gabapentin 100 mg capsule 100 mg PO BID (DME) FreeStyle Test Strip See Rx Instructions .ROUTE .MEDSUPPLY Qty: 150 6RF Rx Instructions: 4 times a day albuterol sulfate [ProAir HFA] 90 mcg/actuation HFA aerosol inhaler 2 puff PO Q6H PRN (DME) lancets [TRUEplus Lancets] 33 gauge misc See Rx Instructions .ROUTE BID Qty: 100 Rx Instructions: As directed pantoprazole 20 mg tablet,delayed release (DR/EC) 20 mg PO DAILY (DME) FreeStyle Lakeisha 2 Sensor Kit See Rx Instructions .Route Rx Instructions: every 14 days (DME) FreeStyle Lakeisha 2 [place] Misc See Rx Instructions .Route Rx Instructions: As directed losartan 25 mg tablet 25 mg PO QAM (DME) blood pressure test kit-large Kit See Rx Instructions .ROUTE DIRECTED Qty: 1 Rx Instructions: As directed (DME) pen needle, diabetic [BD Ultra-Fine Debbie Pen Needle] 32 gauge x 5/32 needle See Rx Instructions .ROUTE BID Qty: 50 Rx Instructions: As directed once a day Myrbetriq 25 mg tablet extended release 24 hr 25 mg PO QAM calcium carbonate [Oyster Shell Calcium] 500 mg calcium (1,250 mg) tablet 500 mg PO BID (DME) Oxygen Home Use Kit See Rx Instructions .Route Rx Instructions: As directed (DME) nebulizers [facility] See Rx Instructions .Route Rx Instructions: As directed Humulin R U-500 (Conc) Kwikpen 500 unit/mL (3 mL) insulin pen See Rx Instructions subcut .Twice a day 30 Days Qty: 6 6RF Rx Instructions: 250 units before breakfast ; cholecalciferol (vitamin D3) 125 mcg (5,000 unit) capsule 125 mcg PO QAM ferrous sulfate [FeroSul] 325 mg (65 mg iron) tablet 325 mg PO 3XW thiamine HCl (vitamin B1) 100 mg tablet 100 mg PO QAM Print Language: Moldovan
--- NOTE | 2024-09-24 17:42 | ECG_ITS ---
Test Reason : WEAKNESS Blood Pressure : */* mmHG Vent. Rate : 85 BPM Atrial Rate : 85 BPM P-R Int : 130 ms QRS Dur : 102 ms QT Int : 392 ms P-R-T Axes : 51 37 42 degrees QTcB Int : 466 ms Normal sinus rhythm Nonspecific ST abnormality Abnormal ECG When compared with ECG of 02-Oct-2018 13:10, T wave inversion no longer evident in Anterior leads Referred By: Doe Reed Electronically Signed By: Chip Juarez
[2024-09-24 18:00] VITALS: BP 168/81; PULSE 77; RESP 26; TEMP 36.6; O2SAT 90
[2024-09-24 18:10] LABS: MANUAL DIFF FLAG NO
--- OUTSIDE RECORDS SUMMARY | 2024-09-24 18:12 | XMS_ITS | Encounter Summary ---
Author Organization [employer] Address [address] [place] [address] Care Team Providers Care Grape Picker Name Role Phone Shireen Stout MD Primary Care Pro vider Reason for Visit * Reason Comments Med Refill Encounter Details Date Type Department Care Team (Late st Contact Info) Description 08/04/2024 Refill [facility] [address] [place], [place] [phone] Shireen Stout MD [address] [place], [place] [phone] Social History Tobacco Use Types Packs/Day Years [...] the past 12 months, has t he [employer], gas, oil or water company threatened to [...] Description 11/26/2024 9:45 AM EDT Office Visit [facility] [address] [place] [phone] Shireen Stout MD [address] [place] [phone] 12/05/2024 1:00 PM EDT Office Visit [facility] [address] [place] [phone] Terrence Avila MD [address] [place] [phone] documented as of this encounter Visit Diagnoses Not on filedocumented in this encounter Additional Health Concerns Assessment Noted Time PHQ-9 Depression Total Score: 3 03/05/20 24 9:07 AM EST documented as of this encounter Care Teams Grape Picker Relationship Specialty Start Date End Date Shireen Stout MD [address] [place] [phone] PCP - General Internal Medicine 09/08/22 documented as of this encounter
[2024-09-24 18:13] LABS: Appearance Urine Clear; Color Urine Yellow; Glucose Urine UA Negative (Negative); Leukocyte Esterase Urine Negative (Negative); Nitrite Urine Negative (Negative); PH >= 9.0 (5.0-9.0); Specific Gravity - Urine <= 1.005 (1.005-1.025); Urine Blood Negative (Negative); Urine Ketones Negative (Negative); Urine Protein Negative (Neg-Trace)
[2024-09-24 18:16] LABS: Basophils Percent Auto 0.5 % (0-2); Eosinophils Absolute Auto 0.1 X10*3/uL (0.0-0.4); Eosinophils Percent Auto 1.2 % (0-4); Hematocrit 36.8 % (37.0-47.0); Hemoglobin 11.3 g/dl (12.0-16.0); Imm Gran Abs Auto 0.03 X10*3/uL (0.00-0.03); Imm Gran Pct Auto 0.3 % (0.0-0.4); Lymphocytes Absolute Auto 1.8 X10*3/uL (1.2-4.9); Lymphocytes Percent Auto 19.9 % (20-40); Mean Corpuscular HGB Conc 30.7 g/dl (31.0-35.0); Mean Corpuscular Hemoglobin 26.1 pg (27.0-33.0); Mean Platelet Volume 9.9 fL (9.4-12.3); Monocytes Absolute Auto 0.6 X10*3/uL (0.1-1.2); Monocytes Percent Auto 6.2 % (2-11); Neutrophils Absolute Auto 6.3 x10*3/uL (2.0-8.3); Neutrophils Percent Auto 71.9 % (45-73); Platelet Count 290 X10*3/uL (160-400); Red Blood Count 4.33 X10*6/uL (4.20-5.50); Red Cell Distribution Width 16.5 % (11.0-16.0); White Blood Count 8.8 X10*3/uL (4.8-10.8)
[2024-09-24 18:18] LABS: INTERNATIONAL NORM RATIO 1.2 (0.9-1.1); Prothrombin Time 14.2 SEC (10.9-12.4)
[2024-09-24] MEDS: Metoclopramide HCl 10 MG/2 ML VIAL 5 MG IVPUSH (18:18)
[2024-09-24] MEDS: diphenhydrAMINE HCL 50 MG/ML VIAL 12.5 MG IVPUSH (18:18)
[2024-09-24] MEDS: 0.9 % Sodium Chloride 1,000 ML 999 ML IV (18:19)
[2024-09-24 18:21] LABS: Partial Thromboplastin Time 32.7 SEC (26.0-36.8)
[2024-09-24 18:32] LABS: Alanine Aminotransferase 25 U/L (0-31); Albumin Level 4.8 g/dL (3.5-5.0); Alkaline Phosphatase 50 U/L (39-117); Anion Gap 15 (12-20); Aspartate Amino Transferase 39 U/L (5-31); Bilirubin Total 0.9 mg/dL (0.0-1.0); Blood Urea Nitrogen 6 mg/dL (9-16); Calcium 10.3 mg/dL (8.4-10.2); Carbon Dioxide 28 mmol/L (22-29); Chloride 104 mmol/L (96-108); Creatinine Clr Calc Pharmacy 89.9; Estimated Glomerular Filt Rate > 60; Glucose Random 97 mg/dL (60-115); Lipase < 4 U/L (8-78); Magnesium 1.9 mg/dL (1.6-2.6); Potassium 3.7 mmol/L (3.3-5.1); Sodium 143 mmol/L (135-145); Total Protein 8.8 g/dL (6.5-8.0)
[2024-09-24] MEDS: Dextrose 50 % 25 GM/50 ML SYRINGE IVPUSH (19:49)
--- NOTE | 2024-09-24 19:49 | PC.NURSE ---
Pt. monitored bs is 62. made aware.
--- NOTE | 2024-09-24 19:50 | PC.NURSE ---
Pt. c/o low bs from machine, amp of d50 and sandwich and juice was given.
[2024-09-24 20:29] VITALS: PULSE 75; RESP 18; O2SAT 94
[2024-09-24 20:39] VITALS: BP 172/57; PULSE 77; RESP 20; TEMP 36.8; O2SAT 94
--- NOTE | 2024-09-24 21:00 | PC.NURSE ---
Report given to CHRISTIAN Steen.
[2024-09-24 21:22] LABS: Glucose, Whole Blood 145 mg/dL (60-115)
[2024-09-24 21:47] VITALS: BP 170/100; PULSE 91; RESP 20; TEMP 36.8; O2SAT 93
--- NOTE | 2024-09-24 22:11 | PC.NURSE ---
Dr. Reed is aware of elevated BP, no new orders at this time. OK for patient to be discharged home.
== END 2024-09-24 22:12 | disposition home or self-care (01) ==
PROVIDERS: Emergency Provider Emergency Medicine Emergency Medical Services
DX: S06.0X0A Concussion without loss of consciousness, initial encounter (principal); W01.198A Fall on same level from slipping, tripping and stumbling with subsequent striking against other object, initial encounter; Y93.01 Activity, walking, marching and hiking; Y92.238 Other place in hospital as the place of occurrence of the external cause; Y99.8 Other external cause status; R53.1 Weakness; M54.9 Dorsalgia, unspecified; R42 Dizziness and giddiness; E11.9 Type 2 diabetes mellitus without complications; I10 Essential (primary) hypertension; J44.9 Chronic obstructive pulmonary disease, unspecified; G47.33 Obstructive sleep apnea (adult) (pediatric); Z79.899 Other long term (current) drug therapy; Z79.4 Long term (current) use of insulin
CPT/HCPCS: 36415; 70450; 70480; 80053; 81003; 82947; 83690; 83735; 84484; 85025; 85610; 85730; 93005; 96361; 96374; 96375; 99285; J1200; J2765

== ENCOUNTER → 2024-09-24 17:42 | Outpatient (BNV) | payer OTHER, SELFPAY | PROVIDERS: Emergency Provider Emergency Medicine Emergency Medical Services; Visit Provider Internal Medicine Cardiovascular Disease | DX: R94.31 Abnormal electrocardiogram [ECG] [EKG] (principal); R53.1 Weakness | CPT/HCPCS: 93010 ==

== ENCOUNTER → 2024-09-24 17:42 | Outpatient (BNV) | payer OTHER, SELFPAY | PROVIDERS: Emergency Provider Emergency Medicine Emergency Medical Services; Visit Provider Radiology Diagnostic Radiology | DX: J32.0 Chronic maxillary sinusitis (principal); R51.9 Headache, unspecified | CPT/HCPCS: 70450; 70480 ==

== ENCOUNTER 2024-11-11 12:17 | Inpatient (IN) | payer OTHER, SELFPAY ==
[2024-11-11] VITALS (12 sets, daily range): BP systolic 93–152; BP diastolic 36–76; PULSE 65–95; RESP 15–24; TEMP 36.6–37.9; O2SAT 95–100; BMI 30.6
--- NOTE | ~2024-11-11 | CT_ITS ---
EXAMINATION: CT ABDOMEN PELVIS WITH IV CONTRAST HISTORY: LLQ pain, n/v/d COMPARISON: Comparison is made with the prior CT of the abdomen without contrast dated 03/26/2023. TECHNIQUE: CT scan of the abdomen and pelvis was performed following administration of 85 mL Omnipaque 350 using standard departmental protocol. Coronal and sagittal reformatted images were generated and reviewed. Oral contrast material was not administered at the request of the referring physician. This CT exam was performed with one or more of the following dose reduction techniques: automated exposure control, adjustment of the mA and/or kV according to patient size, use of iterative reconstruction technique. DLP: 448 mGy-cm FINDINGS: LOWER CHEST: There is subsegmental atelectasis at both lung bases. There is no pleural effusion. CARDIOVASCULATURE: The heart is normal in size. There is no pericardial effusion. LIVER: The liver again demonstrates a nodular contour, consistent with cirrhosis. No liver mass is identified. The hepatic and portal veins are patent. There is a recannulized paraumbilical vein. GALLBLADDER / BILE DUCTS: The gallbladder is unremarkable. There is no intra or extrahepatic biliary ductal dilatation. SPLEEN: The spleen is enlarged. There are multiple focal splenic hypodense lesions measuring up to 1.4 cm in size. PANCREAS: The pancreas is markedly atrophic. ADRENAL GLANDS: Within normal limits. KIDNEYS/RETROPERITONEUM: No renal calculi are identified. There is no hydronephrosis. No renal masses are identified. LYMPH NODES: No abdominal or pelvic lymphadenopathy. VASCULATURE: The abdominal aorta demonstrates atherosclerotic calcification, but is normal in caliber. MESENTERY/PERITONEUM: No free fluid. No masses. There is no free intraperitoneal gas. STOMACH: The stomach is collapsed, limiting evaluation. SMALL BOWEL: The small bowel is normal in caliber. COLON: The colon is unremarkable. APPENDIX: The appendix is not seen, however no inflammatory changes are seen adjacent to the cecum. URINARY BLADDER/PELVIC ORGANS: The urinary bladder is unremarkable. There is heterogeneous material within the uterus, highly suggestive of a mass. BONES / SOFT TISSUES: No suspicious bony or soft tissue abnormalities. CT/CT abdomen pelvis w IV con IMPRESSION: 1. Heterogeneous material in the uterus, highly suggestive of a mass. Pelvic ultrasound is recommended. 2. Cirrhosis of the liver. 3. Splenomegaly. Multiple focal splenic hypodense lesions, of uncertain etiology. Electronically signed by: Kaushik Ramirez MD 11/11/2024 02:57 PM EDT
--- NOTE | ~2024-11-11 | US_ITS ---
EXAMINATION: US PELVIS HISTORY: ? Uterine mass on CT COMPARISON: Correlation is made with a CT of the pelvis dated 11/11/2024. TECHNIQUE: Transabdominal real-time 2D calloway-scale ultrasound was performed. FINDINGS: Uterus: The uterus is normal in size, measuring 7.7 x 3.5 x 5.7 cm. Myometrium has a normal echotexture. No fibroids are identified. Endometrium: There is an echogenic mass within the uterus measuring 3.7 x 2.5 x 3.8 cm. Right ovary: The right ovary measures 1.4 x 0.9 x 1.4 cm. The right ovary is normal in size and echotexture. Left ovary: The left ovary is not identified. Pelvic fluid: none. US/US pelvic complete IMPRESSION: 3.7 x 2.5 x 3.8 cm echogenic mass in the uterus. Evaluation is limited by lack of an endovaginal scan. INSURANCE CLAIMS PROCESSOR consultation is recommended. Electronically signed by: Kaushik Ramirez MD 11/12/2024 10:35 AM EDT
--- NOTE | 2024-11-11 12:26 | ED.NAVMDI ---
HPI - Nausea/Vomiting/Diarrhea General Chief complaint: Abdominal Pain Stated complaint: N/V/D SINCE LAST NIGHT PER EMS Time Seen by Provider: 11/11/24 12:26 Source: patient and RN notes reviewed Mode of arrival: ambulatory Limitations: no limitations History of Present Illness ED Provider: Libertad Elena PA-C HPI Narrative: This is a 63-year-old Belarusian-speaking female with a history of coronary artery disease, asthma/COPD, GERD, cirrhosis, hypertension, dyslipidemia, osteoporosis, diabetes with diabetic neuropathy who presents emergency department via EMS from [facility] with concerns of abdominal pain, nausea, vomiting, and diarrhea since yesterday. Of note, patient was seen at [facility] September 27, 2024 with altered mental status. Son had reported that patient is a alcoholic and discontinue drinking alcohol 7 days prior. There is concerned that she had Wernicke's encephalopathy, hepatic encephalopathy and toxic metabolic encephalopathy. She was admitted until October 21 2024. MD elicited complaint: nausea, vomiting, diarrhea and abdominal pain Related Data Home Medications ?Medication ?Instructions ?Recorded ?Confirmed fenofibrate micronized 134 mg 134 mg PO DAILY 03/16/20 09/16/24 capsule lancets 28 gauge (FreeStyle #100 ea 03/16/20 09/16/24 Lancets) sertraline 50 mg tablet (Zoloft) 50 mg PO DAILY 03/16/20 09/16/24 trazodone 100 mg tablet 100 mg PO BEDTIME PRN Insomnia 03/16/20 09/16/24 budesonide-formoterol HFA 160 2 puff PO 02/25/21 09/16/24 mcg-4.5 mcg/actuation aerosol inhaler (Symbicort) pantoprazole 20 mg tablet,delayed 20 mg PO DAILY 04/28/21 09/16/24 release albuterol sulfate 90 mcg/actuation 2 puff PO Q6H PRN 06/03/21 09/16/24 aerosol inhaler (ProAir HFA) blood pressure test kit-large #1 ea 12/01/21 09/16/24 flash glucose scanning reader 12/01/21 09/16/24 (FreeStyle Lakeisha 2 [place]) flash glucose sensor (FreeStyle 12/01/21 09/16/24 Lakeisha 2 Sensor kit) losartan 25 mg tablet 25 mg PO QAM 12/01/21 09/16/24 lancets 33 gauge (TRUEplus Lancets) #100 ea 04/20/22 09/16/24 pen needle, diabetic 32 gauge x #50 ea 04/20/22 09/16/24 (BD Ultra-Fine Debbie Pen Needle) calcium carbonate (Oyster Shell 500 mg PO BID 02/15/23 09/16/24 Calcium) mirabegron 25 mg tablet,extended 25 mg PO QAM 02/15/23 09/16/24 release 24 hr (Myrbetriq) Oxygen Home Use 06/11/23 09/16/24 nebulizers 06/11/23 09/16/24 cholecalciferol (vitamin D3) 125 125 mcg PO QAM 08/09/23 09/16/24 mcg (5,000 unit) capsule ferrous sulfate 325 mg (65 mg 325 mg PO 3XW 08/09/23 09/16/24 iron) tablet (FeroSul) thiamine HCl (vitamin B1) 100 mg 100 mg PO QAM 08/09/23 09/16/24 tablet gabapentin 100 mg capsule 100 mg PO BID 08/25/24 09/16/24 Previous Rx's ?Medication ?Instructions ?Recorded blood sugar diagnostic (FreeStyle #150 ea 09/28/20 Test strips) blood-glucose meter (FreeStyle #1 ea 06/24/21 [place] Lite kit) insulin regular hum U-500 conc 500 See Rx Instructions subcut .Twice 11/23/22 unit/mL(3 mL) subcut pen (Humulin a day 30 days #6 mL R U-500 (Conc) Insulin Kwikpen) atorvastatin 40 mg tablet 40 mg PO BEDTIME #90 tabs 05/08/23 diphenhydramine HCl 12.5 mg 12.5 mg PO Q6H PRN headache, 09/24/24 chewable tablet nausea or vomiting #14 tabs metoclopramide HCl 5 mg tablet 5 mg PO Q6H PRN headache,nausea 09/24/24 (Reglan) or vomiting #14 tabs Allergies Allergy/AdvReac Type Severity Reaction Status Date / Time cornflower (Cornflower) Allergy Unknown ITCHY Verified 11/11/24 12:35 EYES/HIVES peach (PEACH) Allergy Unknown NATURAL Verified 11/11/24 12:35 FRUIT - MOUTH ITCHES cornell (cherries) Allergy Unknown Verified 11/11/24 12:35 No Known Drug Allergies Allergy none Verified 11/11/24 12:35 apples Allergy Unknown Unknown Uncoded 11/11/24 12:35 peanut Allergy Unknown Unknown Uncoded 11/11/24 12:35 Review of Systems Review of Systems: Yes all other systems are reviewed and are negative Constitutional: Constitutional: Reports as per HPI [facility], [facility] Past Medical History Medical History CAD (coronary artery disease) Dyspnea Asthma-COPD overlap syndrome Alcohol use History of methadone use Personal history of nicotine dependence Asthma Obesity (BMI 30-39.9) GERD (gastroesophageal reflux disease) Cirrhosis Vitamin D deficiency Hypertension Dyslipidemia Non-toxic multinodular goiter Osteoporosis 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 Diabetes type 2, uncontrolled Surgical History Status post biopsy of thyroid gland History of colonoscopy (~2016) Hx of cataract extraction History of esophagogastroduodenoscopy (EGD) (~2020) Hx of cardiac cath (~12/2015) Hx of cholecystectomy (~1980) History of bladder surgery (~06/2019) Family History Family History Father Esophageal cancer Mother Diabetes mellitus HTN (hypertension) Social History Social History Household Members: Spouse Alcohol intake: current Alcohol intake frequency: 3 or more drinks per day Alcohol type: beer Patient Tobacco Use Status: Former Tobacco user Tobacco use type: Cigarette Years Smoked: Onset 27, 2ppd x 24yrs, 48pyh, quit 11/2012 Smoked in Last 30 Days: No Use of substances other than those prescribed or required for medical reasons: No Advance Directives: Yes Advance Directives on File: Yes Advance Directives Date on File: 02/28/21 Physical Exam Vital Signs: Vital Signs: Last Vital Signs Temp 98.1 F 11/11/24 12:33 Pulse 86 11/11/24 16:50 Resp 20 11/11/24 16:50 BP 123/66 11/11/24 16:50 Pulse Ox 100 11/11/24 16:50 O2 Del Method Room Air 08/05/25 16:50 O2 Flow Rate 2 11/11/24 15:00 BMI result Body Mass Index 30.6 Const: General: cooperative, comfortable and no acute distress Orientation/consciousness: patient oriented x3 Limitations: no limitations HEENT: Head: Yes normal to inspection, Yes normocephalic and Yes atraumatic Ears: hearing grossly normal bilaterally General nose exam: Normal external nose present Face and sinus: Yes normal facial exam Mouth: Normal oral and palatal mucosa present, oropharynx normal and moist mucous membranes Throat: Yes posterior oropharynx normal Eyes: General: appearance normal, both eyes and all related structures Eyelids: Yes eyelids normal Conjunctivae: conjunctivae normal Sclerae: sclerae normal Pupils: Equal, round and reactive pupils present EOM: EOMs intact bilaterally Neck: Neck: Yes normal visual inspection, Yes full ROM and Yes no lymphadenopathy Lymphatic: no lymphadenopathy noted Chest: Chest palpation & inspection: normal inspection of the chest Resp: Effort & Inspection: normal respiratory effort and able to speak in complete sentences Auscultation: clear to auscultation bilaterally, no crackles, no rales, no rhonchi and no wheezes Cardio: Rate: regular rate Rhythm: regular rhythm Heart sounds: S1 normal heart sound present and S2 normal heart sound present GI: Other: Abdomen is soft with exquisite tenderness in the left upper quadrant. No rebound or guarding. Tenderness palpation in the suprapubic region. Inspection: Yes normal to inspection : General: Yes no CVA tenderness Back/Spine/Pelvis: Back: no CVA tenderness Skin: General skin exam: no rashes or lesions noted Trauma: no lacerations or abrasions Wounds: no wounds Neuro: General: patient oriented x3 and moves all extremities Cranial nerves: Yes Equal, round and reactive pupils present Extrem: Other: No pedal edema. Bilateral legs in plantar flexion. General: Yes normal to inspection Right upper extremity: normal to inspection Left upper extremity: normal to inspection Right lower extremity: normal to inspection Left lower extremity: normal to inspection NIH Stroke Scale Internal: Initial- Upon Arrival Level of Consciousness: Alert Level of Consciousness Questions: Answers both questions correctly Level of Consciousness Commands: Performs both tasks correctly Best Gaze: Normal Visual: No visual loss Facial Palsy: Normal Motor Arm (Right): No drift Motor Arm (Left): No drift Motor Leg (Right): No drift Motor Leg (Left): No drift Limb Ataxia: Absent Sensory: Normal Best Language: No aphasia Dysarthia: Normal Extinction and Inattention: No abnormality Score: 0 Medications Administered Discontinued Medications Generic Name Dose Route Start Last Admin Trade Name Mauricioq PRN Reason Stop Dose Admin Ceftriaxone Sodium 1 gm 11/11/24 15:06 11/11/24 16:07 Ceftriaxone Sodium 1 Gm Vial IVPUSH 11/11/24 15:07 1 gm ONCE ONE Administration Sodium Chloride 1,000 mls @ 999 mls/hr 11/11/24 12:33 11/11/24 14:46 Ns IVCONT 11/11/24 13:33 Infused .Q1H1M ONE Infusion Acetaminophen 1,000 mg in 100 mls @ 400 mls/hr 11/11/24 13:46 11/11/24 14:45 Ofirmev IV 11/11/24 14:00 Infused ONCE ONE Infusion Iohexol 100 ml 11/11/24 14:47 11/11/24 14:47 Iohexol 350 Mg/Ml 100 Ml Infus..Btl IV 11/11/24 14:48 85 ml ONCE ONE Administration Morphine Sulfate 4 mg 11/11/24 13:46 11/11/24 14:07 Morphine Sulfate 4 Mg/Ml Cartridge IVPUSH 11/11/24 13:47 4 mg ONCE ONE Administration Protocol Ondansetron HCl 4 mg 11/11/24 12:33 11/11/24 13:16 Ondansetron Hcl 4 Mg/2 Ml Vial IVPUSH 11/11/24 12:34 4 mg ONCE ONE Administration Ondansetron HCl 4 mg 11/11/24 16:42 11/11/24 16:49 Ondansetron Hcl 4 Mg/2 Ml Vial IVPUSH 11/11/24 16:43 4 mg ONCE ONE Administration Medical Decision Making Medical Decision Making MDM Narrative: This is a 63-year-old Belarusian-speaking female with a history of coronary artery disease, asthma/COPD on 2 L nasal cannula, GERD, cirrhosis, hypertension, dyslipidemia, osteoporosis, diabetes with diabetic neuropathy who presents emergency department for evaluation of abdominal pain, nausea, vomiting and diarrhea. Patient does report some urinary symptoms. She is a poor historian. Of note, patient was admitted to [facility] for approximately 1 month after being diagnosed with Wernicke's encephalopathy. Given poor historian, will obtain labs, EKG, viral swabs. We will also medicate with IV fluids, antiemetics, and Tylenol. Course: Sudden now at bedside reporting that patient did appear to be slightly more confused upon his initial arrival however this has since improved. She is neurologically intact with no focal deficits on examination. Patient has no leukocytosis, she does have a normocytic anemia with an H&H of 11.9/33.9, chemistry revealing no significant electrolyte derangement, slightly hyperglycemic at 285. Lactic acid 1.6. CT abdomen and pelvis revealing heterogeneous material in the uterus which is highly suggestive of a mass, cirrhosis of the liver, and splenomegaly. Discussed findings with patient and family at bedside. Did obtain a troponin which was 34.6 repeat was 52.5. Repeat EKG was performed, with no acute changes. I discussed this overall workup with Dr. Malcolm, he states that these are likely nonspecific, recommending 3rd troponin. Patient vomiting again. Given that she has a UTI with intractable nausea, vomiting, abdominal pain, it would be in her best interest to be admitted for further evaluation for UTI, and elevated troponins. Differential Diagnosis Differential Diagnoses: The differential diagnosis associated with the presentation includes Gastritis, gastroenteritis, diverticulitis, diverticulosis, electrolyte derangement, atypical ACS Consult Healthcare Provider Management of the patient was discussed with: Business Analytics Analyst Dr. Malcolm, professor of apologetics Lab Data [facility] Lab Attestation statement: I reviewed the patient's lab results. See [facility] 11/11/24 13:13 11/11/24 13:13 Labs: Lab Results 11/11/24 11/11/24 11/11/24 Range/Units 13:12 13:13 15:41 WBC 9.7 (4.8-10.8) X10*3/uL RBC 4.00 L (4.20-5.50) X10*6/uL Hgb 11.9 L (12.0-16.0) g/dl Hct 33.9 L (37.0-47.0) % MCV 84.8 (80.0-98.0) fL MCH 29.8 (27.0-33.0) pg MCHC 35.1 H (31.0-35.0) g/dl RDW 18.3 H (11.0-16.0) % Plt Count 266 (160-400) X10*3/uL MPV 9.7 (9.4-12.3) fL Immature Gran % (Auto) 0.4 (0.0-0.4) % Neut % (Auto) 88.3 H (45-73) % Lymph % (Auto) 7.4 L (20-40) % Dawson % (Auto) 3.8 (2-11) % Eos % (Auto) 0.0 (0-4) % Baso % (Auto) 0.1 (0-2) % Lymph # (Auto) 0.7 L (1.2-4.9) X10*3/uL Dawson # (Auto) 0.4 (0.1-1.2) X10*3/uL Eos # (Auto) 0.0 (0.0-0.4) X10*3/uL Baso # (Auto) 0.0 (0.0-0.2) X10*3/uL Abs Immat Gran (auto) 0.04 H (0.00-0.03) X10*3/uL Absolute Neuts (auto) 8.6 H (2.0-8.3) x10*3/uL Absolute Nucleated RBC 0.000 (0.0-0.012) X10*3/uL Nucleated RBC % (auto) 0.0 (0.0-0.2) /100WBC Sodium 137 (135-145) mmol/L Potassium 3.6 (3.3-5.1) mmol/L Chloride 100 (96-108) mmol/L Carbon Dioxide 23 (22-29) mmol/L Anion Gap 18 (12-20) BUN 7 L (9-16) mg/dL Creatinine 0.64 (0.5-1.4) mg/dL Estim Creat Clear Calc 80.3 Estimated GFR > 60 Random Glucose 285 H (60-115) mg/dL Lactic Acid 1.6 (0.5-2.0) mmol/L Calcium 9.2 D (8.4-10.2) mg/dL Magnesium 1.8 (1.6-2.6) mg/dL Total Bilirubin 1.0 (0.0-1.0) mg/dL Direct Bilirubin 0.5 (0.0-0.5) mg/dL AST 39 H (5-31) U/L ALT 29 (0-31) U/L Alkaline Phosphatase 75 (39-117) U/L Troponin I High Sens 34.6 H D 52.5 H* D (<3.5-17.0) ng/L Total Protein 7.8 (6.5-8.0) g/dL Albumin 4.1 (3.5-5.0) g/dL Lipase < 4 L (8-78) U/L Urine Color Yellow Urine Appearance Turbid Urine pH >= 9.0 (5.0-9.0) Ur Specific [place] 1.015 (1.005-1.025) Urine Protein 100 (2+) H (Neg-Trace) mg/dL Urine Glucose (UA) 500 H (Negative) mg/dL Urine Ketones 15 (Negative) mg/dL Urine Blood Small (1+) H (Negative) Urine Nitrite Positive H (Negative) Ur Leukocyte Esterase Large (3+) H (Negative) Urine RBC 3-5 H (0-2) /HPF Urine WBC >50 H (0-5) /HPF Ur Squamous Epith Cells 0-2 (0-2) /HPF Urine Bacteria 4+ (None Seen) Hyaline Casts 0-2 (0-2) /LPF Influenza Type A (PCR) NEGATIVE (Negative) Influenza Type B (PCR) NEGATIVE (Negative) RSV RNA Qual (PCR) NEGATIVE (Negative) SARS-CoV-2 RNA (RT-PCR) NEGATIVE (Negative) Independent Interpretation I performed an independent interpretation of an: EKG Interpretation: 12:35PM EKG normal sinus rhythm at a ventricular rate of 84 beats per minute, QT QTC 422/498. T-wave inversion noted in the V1, V2. 1620 - EKG normal sinus rhythm T-wave abnormality seen in V2 and V3, seen on previous. Ventricular rate of 81 beats per minute, TX interval 132. QT QTC 428/497, no STEMI. Radiology Impression Discussion of test interpretation with radiology: I have reviewed the radiologist's reading. Radiologist Impression: [address] [address] [address] Scan Report Signed Patient: Shireen Tavarez MR#: [id number] : 1960 Acct:[id number] Age/Sex: 63 / F ADM Date: 11/11/24 Loc: .ED Attending Dr: Ordering Physician: Libertad Elena Date of Service: 11/11/24 Procedure(s): CT abdomen pelvis w IV con Accession Number(s): [id number] cc: Shireen Stout MD; Libertad Elena~ Report Number: [id number]: Total DLP = 448.00 mGy-cm EXAMINATION: CT ABDOMEN PELVIS WITH IV CONTRAST HISTORY: LLQ pain, n/v/d COMPARISON: Comparison is made with the prior CT of the abdomen without contrast dated 03/26/2023. TECHNIQUE: CT scan of the abdomen and pelvis was performed following administration of 85 mL Omnipaque 350 using standard departmental protocol. Coronal and sagittal reformatted images were generated and reviewed. Oral contrast material was not administered at the request of the referring physician. This CT exam was performed with one or more of the following dose reduction techniques: automated exposure control, adjustment of the mA and/or kV according to patient size, use of iterative reconstruction technique. DLP: 448 mGy-cm FINDINGS: LOWER CHEST: There is subsegmental atelectasis at both lung bases. There is no pleural effusion. CARDIOVASCULATURE: The heart is normal in size. There is no pericardial effusion. LIVER: The liver again demonstrates a nodular contour, consistent with cirrhosis. No liver mass is identified. The hepatic and portal veins are patent. There is a recannulized paraumbilical vein. GALLBLADDER / BILE DUCTS: The gallbladder is unremarkable. There is no intra or extrahepatic biliary ductal dilatation. SPLEEN: The spleen is enlarged. There are multiple focal splenic hypodense lesions measuring up to 1.4 cm in size. PANCREAS: The pancreas is markedly atrophic. ADRENAL GLANDS: Within normal limits. KIDNEYS/RETROPERITONEUM: No renal calculi are identified. There is no hydronephrosis. No renal masses are identified. LYMPH NODES: No abdominal or pelvic lymphadenopathy. VASCULATURE: The abdominal aorta demonstrates atherosclerotic calcification, but is normal in caliber. MESENTERY/PERITONEUM: No free fluid. No masses. There is no free intraperitoneal gas. STOMACH: The stomach is collapsed, limiting evaluation. SMALL BOWEL: The small bowel is normal in caliber. COLON: The colon is unremarkable. APPENDIX: The appendix is not seen, however no inflammatory changes are seen adjacent to the cecum. URINARY BLADDER/PELVIC ORGANS: The urinary bladder is unremarkable. There is heterogeneous material within the uterus, highly suggestive of a mass. BONES / SOFT TISSUES: No suspicious bony or soft tissue abnormalities. CT/CT abdomen pelvis w IV con IMPRESSION: 1. Heterogeneous material in the uterus, highly suggestive of a mass. Pelvic ultrasound is recommended. 2. Cirrhosis of the liver. 3. Splenomegaly. Multiple focal splenic hypodense lesions, of uncertain etiology. Electronically signed by: Kaushik Ramirez MD 11/11/2024 02:57 PM EDT RP Dictated By: Kaushik Ramirez MD Independent Historian Clinical information obtained from an independent historian. History obtained from or confirmed by: EMS and Other (Family) Critical Care Time Critical Care Time Critical Care Time: Yes Total Critical Care Time: 47 Attestation: I have personally provided critical care time exclusive of time spent on separately billable procedures. Time includes review of lab data, radiology results, discussion with consultants, and monitoring for potential decompensation. Intervention performed as documented. Discharge Plan Discharge Clinical Impression: Acute UTI, Nausea vomiting and diarrhea, Elevated troponin Prescriptions: No Action (DME) blood-glucose meter [FreeStyle [place] Lite] Kit See Rx Instructions .Route Qty: 1 0RF Rx Instructions: As directed atorvastatin 40 mg tablet 40 mg PO BEDTIME Qty: 90 1RF budesonide-formoterol [Symbicort] 160-4.5 mcg/actuation HFA aerosol inhaler 2 puff PO metoclopramide HCl [Reglan] 5 mg tablet 5 mg PO Q6H PRN (Reason: headache,nausea or vomiting) Qty: 14 0RF diphenhydramine HCl 12.5 mg tablet,chewable 12.5 mg PO Q6H PRN (Reason: headache, nausea or vomiting) Qty: 14 0RF (DME) lancets [FreeStyle Lancets] 28 gauge misc See Rx Instructions .ROUTE .MEDSUPPLY Qty: 100 Rx Instructions: As directed fenofibrate micronized 134 mg capsule 134 mg PO DAILY sertraline [Zoloft] 50 mg tablet 50 mg PO DAILY trazodone 100 mg tablet 100 mg PO BEDTIME PRN (Reason: Insomnia) gabapentin 100 mg capsule 100 mg PO BID (DME) FreeStyle Test Strip See Rx Instructions .ROUTE .MEDSUPPLY Qty: 150 6RF Rx Instructions: 4 times a day albuterol sulfate [ProAir HFA] 90 mcg/actuation HFA aerosol inhaler 2 puff PO Q6H PRN (DME) lancets [TRUEplus Lancets] 33 gauge misc See Rx Instructions .ROUTE BID Qty: 100 Rx Instructions: As directed pantoprazole 20 mg tablet,delayed release (DR/EC) 20 mg PO DAILY (DME) FreeStyle Lakeisha 2 Sensor Kit See Rx Instructions .Route Rx Instructions: every 14 days (DME) FreeStyle [place] 2 [place] Misc See Rx Instructions .Route Rx Instructions: As directed losartan 25 mg tablet 25 mg PO QAM (DME) blood pressure test kit-large Kit See Rx Instructions .ROUTE DIRECTED Qty: 1 Rx Instructions: As directed (DME) pen needle, diabetic [BD Ultra-Fine Debbie Pen Needle] 32 gauge x 5/32 needle See Rx Instructions .ROUTE BID Qty: 50 Rx Instructions: As directed once a day Myrbetriq 25 mg tablet extended release 24 hr 25 mg PO QAM calcium carbonate [Oyster Shell Calcium] 500 mg calcium (1,250 mg) tablet 500 mg PO BID (DME) Oxygen Home Use Kit See Rx Instructions .Route Rx Instructions: As directed (DME) nebulizers Mis See Rx Instructions .Route Rx Instructions: As directed Humulin R U-500 (Conc) Kwikpen 500 unit/mL (3 mL) insulin pen See Rx Instructions subcut .Twice a day 30 Days Qty: 6 6RF Rx Instructions: 250 units before breakfast ; cholecalciferol (vitamin D3) 125 mcg (5,000 unit) capsule 125 mcg PO QAM ferrous sulfate [FeroSul] 325 mg (65 mg iron) tablet 325 mg PO 3XW thiamine HCl (vitamin B1) 100 mg tablet 100 mg PO QAM Print Language: Armenian
--- NOTE | 2024-11-11 12:29 | ECG_ITS ---
Test Reason : WEAKNESS Blood Pressure : */* mmHG Vent. Rate : 84 BPM Atrial Rate : 84 BPM P-R Int : 124 ms QRS Dur : 92 ms QT Int : 422 ms P-R-T Axes : 65 17 31 degrees QTcB Int : 498 ms Artifact in tracing Normal sinus rhythm Nonspecific ST abnormality Prolonged QT Abnormal ECG When compared with ECG of 24-Sep-2024 18:15, Nonspecific T wave abnormality now evident in Inferior leads Referred By: Libertad Elena Electronically Signed By: TEZ SOTO
--- NOTE | 2024-11-11 12:38 | PC.NURSE ---
pt roomed changed and placed on full monitor- PT A&O X4 VSS Pt states positive abdominal pain. Nausea. Pt being seen by provider with construction accountant at this time.
[2024-11-11 13:19] LABS: MANUAL DIFF FLAG NO
[2024-11-11 13:20] LABS: Hematocrit 33.9 % (37.0-47.0); Hemoglobin 11.9 g/dl (12.0-16.0); Imm Gran Abs Auto 0.04 X10*3/uL (0.00-0.03); Imm Gran Pct Auto 0.4 % (0.0-0.4); Lymphocytes Absolute Auto 0.7 X10*3/uL (1.2-4.9); Mean Corpuscular HGB Conc 35.1 g/dl (31.0-35.0); Mean Corpuscular Hemoglobin 29.8 pg (27.0-33.0); Mean Corpuscular Volume 84.8 fL (80.0-98.0); NRBC Abs Auto 0.000 X10*3/uL (0.0-0.012); NRBC Pct Auto 0.0 /100WBC (0.0-0.2); Platelet Count 266 X10*3/uL (160-400); Red Blood Count 4.00 X10*6/uL (4.20-5.50); White Blood Count 9.7 X10*3/uL (4.8-10.8)
[2024-11-11 13:21] LABS: Appearance Urine Turbid; Glucose Urine UA 500 mg/dL (Negative); PH >= 9.0 (5.0-9.0); Specific Gravity - Urine 1.015 (1.005-1.025); UMIC TRIGGER UACC YES
[2024-11-11 13:35] LABS: Alanine Aminotransferase 29 U/L (0-31); Albumin Level 4.1 g/dL (3.5-5.0); Alkaline Phosphatase 75 U/L (39-117); Anion Gap 18 (12-20); Aspartate Amino Transferase 39 U/L (5-31); Blood Urea Nitrogen 7 mg/dL (9-16); Calcium 9.2 mg/dL (8.4-10.2); Carbon Dioxide 23 mmol/L (22-29); Chloride 100 mmol/L (96-108); Creatinine Clr Calc Pharmacy 80.3; Estimated Glomerular Filt Rate > 60; Lipase < 4 U/L (8-78); Magnesium 1.8 mg/dL (1.6-2.6); Potassium 3.6 mmol/L (3.3-5.1); Sodium 137 mmol/L (135-145); Total Protein 7.8 g/dL (6.5-8.0)
[2024-11-11 13:44] LABS: Troponin-I High Sensitivity 34.6 ng/L (<3.5-17.0)
[2024-11-11 13:52] LABS: UACC Culture Trigger YES
[2024-11-11 13:56] LABS: Resp Syncy Virus RNA Qual PCR NEGATIVE (Negative); SARS COV2 PCR INHOUSE NEGATIVE (Negative)
--- OUTSIDE RECORDS SUMMARY | 2024-11-11 14:25 | XMS_ITS | Clinical Summary ---
Author Organization 175 [facility] Address [address] [place] [address] Phone Care Team Providers Care Lens Edge [employer] Name Role Phone Pranav Stout MD Primary Care Pro vider Allergies Active Allergy Reactions Criticality Noted Date Comments Jimmy Inhibitors 11/02/2023 Apple 11/02/2023 Romero 11/02/2023 [place] (Prunus Persica) 11/02/2023 Peanut 11/02/2023 Medications albuterol [...] 1 Capsule by mouth at bedtime. Active ammonium lactate (AMLACTIN) 12 % cream Apply topically if needed for dry skin. 770 g 5 06/19/19 26 Active Encounters Date Type Department Care Team Description 09/18/2024 9:00 AM EDT Office Visit Orthopedic Surgery - [address] [id number] Herson Fitzgerald, DPM Arthritis of both ankles (Primary Dx); Diabetic mononeuropathy simplex ([facility] V24, [facility] V28); Dermatophytosis of nail; Pain in toe of right foot; Pain in toe of left foot; Metatarsalgia of both feet; Type II diabetes mellitus with peripheral circulatory disorder ([facility] V24, [facility] V28) from Last 3 Months Immunizations Name Administration Dates Next Due COVID-19 (Moderna/Spikevax) 12yo and older 10/25 Medical History Medical History Date Comments DM (diabetes mellitus), type 2 ([facility] V24, [facility] V28) DX:DM (diabetes mellitus), t ype 2 (HCC) Alcoholic cirrhosis (CMS/HCC V24, [facility] V28) DX:Alcoholic cirrhosis (HCC) Other seasonal allergic rhinitis DX:Other seasonal allergic rhinitis Constipation DX:Constipation HTN (hypertension) DX:HTN (hyper tension) Pulmonary emphysema ([facility] V24, [facility] V28) DX:Pulmonary emphysema (HCC) Stage 2 chronic [...] Oxygen Concentration - - Weight 79.8 kg (175 lb 14.8 oz) 09/18/2024 9:08 AM EDT Height 154.9 cm (5' 0.98 ) 09/18/2024 9:08 AM ED T Body Mass Index 33.26 09/18/2024 9:08 AM EDT Plan of Treatment Upcoming Encounters Date Type Department Care Team (Late st Contact Info) Description 12/22/2024 9:00 AM EDT Office Visit Orthopedic Surgery - [place] [address] [id number] Herson Fitzgerald DPM [address] [address] Health Maintenance Due Date Last Done Comments Breast Cancer Screening 1960 Diabetes: Annual GFR (Glomerular Filtration Rate) 1958 Diabetes: Annual Foot Exam 1968 Diabetes: Annual Retina Eye Exam 1968 Colorectal Cancer Screening: Colonoscopy 11/02/2023 Osteoporosis Screening (Bone Density Screening) 11/02/2023 Social Influencers of Health Screening 11/02/2023 Falls Risk Assessment 11/30/2023 Depression Screening 04/09/2024 Diabetes: Annual Urine Albumin-Creatinine Ratio (uACR) 06/18/2024 Hypertension/CHF/CAD Annual BMP Blood Test 06/18/2024 COVID-19 Vaccine (7 - Moderna risk season) 2024 03/05/2024, 06/07/2023, 10/25/2022, Additional history exists Influenza Vaccine (#1) 2024 , 01/23/2023, 01/26/2021, Additional history exists Diabetes: Blood Sugar Control Test (HGBA1C) 02/21/2025 08/21/2024, 03/05/2024 Cervical Cancer Screening: Pap Smear 02/19/2026 02/19/2023 Cholesterol Screening (Lipid Panel) 02/27/2029 02/28/2024 DTaP,Tdap,and Td Vaccines (5 - Td or Tdap) 10/25/2032 10/25/2022, 12/29/2011, 05/18/2003, Additional history exists Hepatitis A Vaccines Completed 05/15/2008, 08/29/19 08 Hepatitis B Vaccines Completed 05/15/2008, 12/06/2007, 08/29/2007 Zoster Vaccines Completed 06/14/2020, 04/05/2020 Pneumococcal Vaccine: 50+ Years Completed 05/02/2022, 12/29/2008 RSV Immunization Adult Patients Completed 11/15/2023 Hepatitis C Screening Completed 02/28/2024 HIB Vaccines Aged Out No longer eligi [...] topic Insurance MEDICAID - [place] Care Teams [employer] Relationship Specialty Start Date End Date Pranav Stout MD [address] [facility] [address] [place] [address] PCP - General 08/16/23
--- OUTSIDE RECORDS SUMMARY | 2024-11-11 14:25 | XMS_ITS | Encounter Summary ---
Author Organization [facility] Address [address] [place] [address] Encounters * CPT with Tristian Weston at [facility] on 2024-09-24 Patient Daughter called as [place] [facility] [place] Fell from seated walker to groundfound to have been hypoxic. Daughter concerned as Mom seems off O2Sat at time of call on @1.5LPM + 95%. All imaging at time of fall Negative. No urinary complaints. { reasonForRequest : Fall , patientReports : , denies& quot;:[], chiefComplaints : Falls , pmh : Asthma, Chronic KidneyDisease, Cirrhosis, Diabetes Mellitus Type 2, Food Allergies, Hypertension , allergies": LISA Inhibitors , otherAllergies : , painAssessment :&qu ot; , visitOutcome : , additionalComments : HPI reviewed\n\nFood allergies:\nApple juice cornell prunus persica, PB flavoring } Dispatched to the call address for the female with possible low O2. Pt was leaving a doctor appt last week when she fell and hit her head. She was seen in the ED at that time where imaging was done and according to family, everything checked out well and was discharged the next morning. Family notices that since the fall she has had periods of confusion where she is not able to speak or answer questions appropriately/follow directions. Pt also complains of headaches, intermittent dizziness and clear fluid leaking from her left ear at times. Pt denies chest pain, sob/diff breathing, fevers, n/v/d or taking a blood thinner. Pt was found sitting at kitchen table, CAOx4, airway open and patent, breathing non labored, able to speak in full sentences, -JVD, -HEENT, skin PWD with good turgor, mucous membranes pink and moist,pupils PERRL, abd soft non tender/distended, +CMSx4, lungs CTA, -edema/swelling, afebrile. Pt able to pass FAST exam but did struggle and was confused at times as to what she was suppose to be doing. Pt was assessed. C consulted. Pt advised to return to the ED for imaging. Family advised they would drive her as it was only a couple of minutes down the road. Family advised that I could call for an ambulance for her but they advised they would take her now. Red flags discussed. ALL times are approx. IV_(FLUIDS_AND/OR_MEDICATION), MEDICATION_IM, EKG, GLUCOSE, ORTHOSTATIC_VITAL_SIGNS Written by Tristian Weston on 2024-09-24
[2024-11-11] MEDS: iohexoL 350 MG/ML 100 ML INFUS..BTL IV (14:47)
--- NOTE | 2024-11-11 15:36 | PC.NURSE ---
Addendum entered by Emily Arora RN 11/11/24 15:40: abx delayed d/t need for BC/lactic to be drawn, provider aware. Original Note: Assumed care of this patient at 1500, provider at bedside speaking with patient about plan of care. IV abx ordered, confirmed with provider no lactic/cultures ordered - verbal order for lactic/blood cultures given. Gabriele EDT at bedside at this time drawing patient. IV tylenol running.
[2024-11-11 16:14] LABS: Troponin-I High Sensitivity 52.5 ng/L (<3.5-17.0)
--- NOTE | 2024-11-11 16:18 | ECG_ITS ---
Test Reason : ELEVATED TROP Blood Pressure : */* mmHG Vent. Rate : 81 BPM Atrial Rate : 81 BPM P-R Int : 132 ms QRS Dur : 90 ms QT Int : 428 ms P-R-T Axes : 59 14 46 degrees QTcB Int : 497 ms Normal sinus rhythm Nonspecific ST abnormality Abnormal ECG When compared with ECG of 11-Nov-2024 12:35, No significant change was found Referred By: Libertad Elena Electronically Signed By: TEZ SOTO
--- NOTE | 2024-11-11 16:28 | MHC.EDTECH ---
Pt did get out of bed onto bedside commode with help from family member. Pt was a two assist back to bed d/t pt being slightly unsteady on her feet.
[2024-11-11 17:38] LABS: Ammonia 21 umol/L (13-55)
--- NOTE | 2024-11-11 18:07 | PM.IMHP ---
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 She also complained of bilateral lumbar pain. She denied diarrhea. She said that the last meal before the symptoms with soap that was brought by her family member. There is no fever or chills. She did not report any headache, palpitations, dizziness, chest pain or shortness on breath. According to ED patient was hospitalized at [facility] with Wernicke encephalopathy. In the ED, she was found to have normal vital signs. Blood workup showed no leukocytosis or lactic acidosis, hemoglobin is 11.9 which is at baseline and platelets are normal. There are no significant electrolyte imbalances. LFTs are normal except for elevated AST. Troponin is increasing from 34.6 to 52.5. Urinalysis consistent with urinary tract infection. Abdominal pelvis CT scan with IV contrast showed cirrhosis of the liver, splenomegaly and highly suggestive uterine mass. ECG showed normal sinus rhythm, heart rate is 81 beats per minute without ischemic changes. ED Tx: NS 1 L bolus, Zofran 8 mg IV total, Tylenol 1 g IV, morphine 4 mg IV, ceftriaxone 1 g IV Review of Systems Review of Systems: All 12 systems were reviewed and normal except as noted in HPI. [facility] Medical History CAD (coronary artery disease) Dyspnea Asthma-COPD overlap syndrome Alcohol use History of methadone use Personal history of nicotine dependence Asthma Obesity (BMI 30-39.9) GERD (gastroesophageal reflux disease) Cirrhosis Vitamin D deficiency Hypertension Dyslipidemia Non-toxic multinodular goiter Osteoporosis Diabetic 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 with type 2 diabetes mellitus intermediate (current) use of insulin Diabetes type 2, uncontrolled Family History Father Esophageal cancer Mother Diabetes mellitus HTN (hypertension) Surgical History Status post biopsy of thyroid gland History of colonoscopy (~2016) Hx of cataract extraction History of esophagogastroduodenoscopy (EGD) (~2020) Hx of cardiac cath (~12/2015) Hx of cholecystectomy (~1980) History of bladder surgery (~06/2019) Social History Household Members: Spouse Alcohol intake: current Alcohol intake frequency: 3 or more drinks per day Alcohol type: beer Patient Tobacco Use Status: Former Tobacco user Tobacco use type: Cigarette Years Smoked: Onset 27, 2ppd x 24yrs, 48pyh, quit 11/2012 Smoked in Last 30 Days: No Use of substances other than those prescribed or required for medical reasons: No Advance Directives: Yes Advance Directives on File: Yes Advance Directives Date on File: 02/28/21 Nutrition Risks: No Nutritional Risk Meds Allergies Allergy/AdvReac Type Severity Reaction Status Date / Time cornflower (Cornflower) Allergy Unknown ITCHY Verified 11/11/24 12:35 EYES/HIVES peach (PEACH) Allergy Unknown NATURAL Verified 11/11/24 12:35 FRUIT - MOUTH ITCHES cornell (cherries) Allergy Unknown Verified 11/11/24 12:35 No Known Drug Allergies Allergy none Verified 11/11/24 12:35 apples Allergy Unknown Unknown Uncoded 11/11/24 12:35 peanut Allergy Unknown Unknown Uncoded 11/11/24 12:35 Active Medications: Current Medications Dextrose (Dextrose 50 % 25 Gm/50 Ml Syringe) 25 gm IVPUSH Q15M PRN; Protocol PRN Reason: per Hypoglycemia Standing Ord. Glucose (Glucose Gel 15 Gm Gel..Gram.) 15 gm PO Q15M PRN; Protocol PRN Reason: per Hypoglycemia Standing Ord. Hydromorphone HCl (Hydromorphone Hcl 1 Mg/Ml Syringe) 1 mg IVPUSH ONCE STA; Protocol Stop: 11/11/24 18:00 Hydromorphone HCl (Hydromorphone Hcl 0.5 Mg/0.5 Ml Syringe) 0.5 mg IVPUSH Q3H PRN; Protocol PRN Reason: Pain, Severe (Pain Scale 7-10) Lactated Ringer's (Lr) 1,000 mls @ 100 mls/hr IVCONT .Q10H JONO Stop: 11/12/24 03:59 Insulin Human Lispro (Insulin Lispro 100 Unit/Ml 3 Ml Vial) 0 unit SUBCUT Q6H [facility]; Protocol Pantoprazole Sodium (Pantoprazole Sodium 40 Mg/10 Ml Vial) 40 mg IVPUSH DAILY@0630 [facility] Prochlorperazine Edisylate (Prochlorperazine Edisylate 10 Mg/2 Ml Vial) 5 mg IVPUSH ONCE STA Stop: 11/11/24 18:01 Prochlorperazine Edisylate (Prochlorperazine Edisylate 10 Mg/2 Ml Vial) 5 mg IVPUSH Q6H PRN PRN Reason: Nausea and Vomiting Sodium Chloride (0.9 % Sodium Chloride Flush 3 Ml Syringe) 3 ml IVFLUSH QSHIFT [facility] Home Medications ?Medication ?Instructions ?Recorded ?Confirmed ?Last Taken ?Type lancets 28 gauge (FreeStyle #100 ea 03/16/20 09/16/24 Unknown History Lancets) sertraline 50 mg tablet (Zoloft) 50 mg PO DAILY 03/16/20 11/11/24 Unknown History trazodone 100 mg tablet 200 mg PO BEDTIME PRN Insomnia 03/16/20 11/11/24 Unknown History pantoprazole 20 mg tablet,delayed 20 mg PO BID 04/28/21 11/11/24 Unknown History release blood pressure test kit-large #1 ea 12/01/21 09/16/24 Unknown History flash glucose scanning reader 12/01/21 09/16/24 Unknown History (FreeStyle Lakeisha 2 Partridge) flash glucose sensor (FreeStyle 12/01/21 09/16/24 Unknown History Lakeisha 2 Sensor kit) losartan 25 mg tablet 25 mg PO QAM 12/01/21 11/11/24 Unknown History lancets 33 gauge (TRUEplus Lancets) #100 ea 04/20/22 09/16/24 Unknown History pen needle, diabetic 32 gauge x #50 ea 04/20/22 09/16/24 Unknown History (BD Ultra-Fine Debbie Pen Needle) mirabegron 25 mg tablet,extended 25 mg PO QAM 02/15/23 11/11/24 Unknown History release 24 hr (Myrbetriq) Oxygen Home Use 06/11/23 09/16/24 Unknown History nebulizers 06/11/23 09/16/24 Unknown History ferrous sulfate 325 mg (65 mg 325 mg PO MOWEFR 08/09/23 11/11/24 Unknown History iron) tablet (FeroSul) albuterol sulfate 90 mcg/actuation 2 puff inhalation Q6H PRN 11/11/24 11/11/24 Unknown History aerosol inhaler (Ventolin HFA) Shortness Of Breath atorvastatin 40 mg tablet 40 mg PO BEDTIME 11/11/24 11/11/24 Unknown History calcium carbonate 500 mg PO BID 11/11/24 11/11/24 Unknown History cetirizine 10 mg tablet 10 mg PO QAM 11/11/24 11/11/24 Unknown History ergocalciferol (vitamin D2) 1,250 1,250 mcg PO Q7D 11/11/24 11/11/24 Unknown History mcg (50,000 unit) capsule fenofibrate micronized 134 mg 134 mg PO QPM 11/11/24 11/11/24 Unknown History capsule folic acid 1 mg tablet 1 mg PO DAILY 11/11/24 11/11/24 Unknown History gabapentin 300 mg capsule 300 mg PO BID 11/11/24 11/11/24 Unknown History insulin glargine 100 unit/mL (3 unit subcut 11/11/24 Unknown History mL) subcutaneous pen (Lantus Solostar U-100 Insulin) insulin lispro 100 unit/mL subcut 11/11/24 Unknown History subcutaneous pen linaclotide 72 mcg capsule 72 mcg PO QAM 11/11/24 11/11/24 Unknown History (Linzess) naltrexone 50 mg tablet 50 mg PO QAM 11/11/24 11/11/24 Unknown History thiamine HCl (vitamin B1) 100 mg 100 mg PO QAM 11/11/24 11/11/24 Unknown History tablet Physical Exam Vital Signs and Narrative: Vital Signs: Last Vital Signs Temp 98.1 F 11/11/24 12:33 Pulse 86 11/11/24 16:50 Resp 20 11/11/24 16:50 BP 123/66 11/11/24 16:50 Pulse Ox 100 11/11/24 16:50 O2 Del Method Room Air 11/11/24 16:50 O2 Flow Rate 2 11/11/24 15:00 BMI result Body Mass Index 30.6 Constitutional - Awake and Alert, in acute distress due to pain. Cooperative. HEENT - PER, EOMI Heart - RRR, No murmurs Lungs - Normal lung expansion, Normal respiratory effort, No respiratory distress, CTA bilaterally Abdomen - Midly distended, epigastric tenderness without rebound. Increased bowel sounds. Extremities - no calf tenderness bilaterally, no swelling Musculoskeletal - Normal inspection, normal ROM Skin - Warm/Dry. No pallor. No jaundice. Neurological - Alert & oriented x3. Moving all extremities spontaneously. Normal speech. Psychological - Anxious and crying due to pain. Results Labs 11/11/24 13:13 11/11/24 13:13 Labs: Laboratory Results - last 24 hr 11/11/24 11/11/24 11/11/24 13:12 13:13 15:41 MCV 84.8 MCH 29.8 MCHC 35.1 H RDW 18.3 H Plt Count 266 MPV 9.7 Immature Gran % (Auto) 0.4 Neut % (Auto) 88.3 H Lymph % (Auto) 7.4 L Falls % (Auto) 3.8 Eos % (Auto) 0.0 Baso % (Auto) 0.1 Lymph # (Auto) 0.7 L Falls # (Auto) 0.4 Eos # (Auto) 0.0 Baso # (Auto) 0.0 Abs Immat Gran (auto) 0.04 H Absolute Neuts (auto) 8.6 H Absolute Nucleated RBC 0.000 Nucleated RBC % (auto) 0.0 Anion Gap 18 Estim Creat Clear Calc 80.3 Estimated GFR > 60 Random Glucose 285 H Lactic Acid 1.6 Calcium 9.2 D Magnesium 1.8 Total Bilirubin 1.0 Direct Bilirubin 0.5 AST 39 H ALT 29 Alkaline Phosphatase 75 Ammonia Total Protein 7.8 Albumin 4.1 Lipase < 4 L Urine Color Yellow Urine Appearance Turbid Urine pH >= 9.0 Ur Specific Cascade 1.015 Urine Protein 100 (2+) H Urine Glucose (UA) 500 H Urine Ketones 15 Urine Blood Small (1+) H Urine Nitrite Positive H Ur Leukocyte Esterase Large (3+) H Urine RBC 3-5 H Urine WBC >50 H Ur Squamous Epith Cells 0-2 Urine Bacteria 4+ Hyaline Casts 0-2 Influenza Type A (PCR) NEGATIVE Influenza Type B (PCR) NEGATIVE RSV RNA Qual (PCR) NEGATIVE SARS-CoV-2 RNA (RT-PCR) NEGATIVE 11/11/24 17:22 MCV MCH MCHC RDW Plt Count MPV Immature Gran % (Auto) Neut % (Auto) Lymph % (Auto) Falls % (Auto) Eos % (Auto) Baso % (Auto) Lymph # (Auto) Falls # (Auto) Eos # (Auto) Baso # (Auto) Abs Immat Gran (auto) Absolute Neuts (auto) Absolute Nucleated RBC Nucleated RBC % (auto) Anion Gap Estim Creat Clear Calc Estimated GFR Random Glucose Lactic Acid Calcium Magnesium Total Bilirubin Direct Bilirubin AST ALT Alkaline Phosphatase Ammonia 21 Total Protein Albumin Lipase Urine Color Urine Appearance Urine pH Ur Specific Cascade Urine Protein Urine Glucose (UA) Urine Ketones Urine Blood Urine Nitrite Ur Leukocyte Esterase Urine RBC Urine WBC Ur Squamous Epith Cells Urine Bacteria Hyaline Casts Influenza Type A (PCR) Influenza Type B (PCR) RSV RNA Qual (PCR) SARS-CoV-2 RNA (RT-PCR) Imaging Radiologist's Impressions: Impressions Abdomen/Pelvis CT 11/11/24 13:21 IMPRESSION: 1. Heterogeneous material in the uterus, highly suggestive of a mass. Pelvic ultrasound is recommended. 2. Cirrhosis of the liver. 3. Splenomegaly. Multiple focal splenic hypodense lesions, of uncertain etiology. Electronically signed by: Kaushik Ramirez MD 11/11/2024 02:57 PM EDT RP Assessment and Plan (1) Intractable abdominal pain: Status: Acute (2) Elevated troponin: Status: Acute Plan Shireen Tavarez i is a 63 y/o woman with a PMHx significant for recent hospitalization for encephalopathy presents with: Severe abdominal pain associated with nausea and vomiting, possible secondary to acute gastritis; actively vomiting and/or secondary to UTI. NPO. Continue IV fluids. Pain control with Dilaudid IV as needed. Antiemetic as needed. Protonix 40 mg IV daily. Continue empiric IV antibiotic therapy with ceftriaxone -UC obtained will follow results. Elevated troponin. ECG showed no acute ischemia. Continue to monitor troponin. Start aspirin if tolerated. Cardiology consult. Type 2 diabetes mellitus. BG checks every 6 hours while NPO. Insulin scale scale as needed. Essential hypertension. Continue losartan. Continue to monitor BP. HFrEF (45-50%) with moderate diastolic dysfunction. No acute respiratory symptoms. Asthma-COPD. Continue oxygen. Albuterol as needed. Hyperlipidemia. Continue statin and fenofibrate. History of alcohol abuse. No recent history of alcohol abuse. Continue naltrexone. Depression. Continue sertraline. DVT prophylaxis: Lovenox Code status: Full Patient will need hospitalization for at least 2 midnights for intractable abdominal pain and vomiting treatment with IV pain meds, IV antiemetics and IV fluids. Quality Stroke Does the patient have a stroke diagnosis?: No VTE Prior VTE?: No VTE Risk Level:: Medical - moderate - high VTE Device Contraindication: Treatment Not Indicated VTE Drug Contraindication: N/A - Med Ordered
[2024-11-11] MEDS: Thiamine HCL 100 MG in 0.9 % Sodium Chloride 100 ML 202 MG IV (18:25)
[2024-11-11] MEDS: Lactated Ringers 1,000 ML 100 ML IVCONT (18:26)
[2024-11-11 18:29] LABS: Glucose, Whole Blood 151 mg/dL (60-115)
[2024-11-11] MEDS: Lactated Ringers 500 ML 999 ML IV (20:00)
--- NOTE | 2024-11-11 20:12 | PC.NURSE ---
Confirmed w/ Dr. Phoenix nixon to give aspirin. Informed Dr. Garibay pressures trending low, IV bolus ordered/hung. Informed Dr. Garibay rectal temp 100.3, provider aware.
--- NOTE | 2024-11-11 20:52 | PHA.MEDREC ---
Pharmacy Consult ? Medication Reconciliation Pharmacy has completed the medication reconciliation. Will follow up with [facility] in am for insulin dosage
--- NOTE | 2024-11-11 22:18 | PC.NURSE ---
Addendum entered by Emily Arora RN 11/11/24 22:40: unable to find specimen, pending status cancelled, phlebotomy to come redraw patient. Original Note: patient's 2100 troponin has been pending since 2104, called lab, spoke to lai - they are looking for sample, will call back w/ answers.
[2024-11-11 23:08] LABS: Troponin-I High Sensitivity 32.9 ng/L (<3.5-17.0)
[2024-11-12 00:20] LABS: Glucose, Whole Blood 124 mg/dL (60-115)
[2024-11-12] MEDS: 0.9 % Sodium Chloride Flush 3 ML SYRINGE IVFLUSH (00:24)
--- NOTE | 2024-11-12 00:26 | PC.NURSE ---
patient sleeping, skin pwd, resp even and non labored, NSR via tele, LR infusing at 100ml/hr per order, maintaining O2 sat at 95% on 2lpm via NC, purewick draining cloudy yellow urine. blood sugar 124, no insulin coverage.
[2024-11-12 01:22] VITALS: BP 103/39; BP 93/39; PULSE 70; RESP 18; TEMP 36.6; O2SAT 96
[2024-11-12 01:59] VITALS: BP 110/43
--- NOTE | 2024-11-12 05:01 | PC.NURSE ---
Spoke with Dr. Martin regarding complete LR infusion. Patient is NPO. Per Dr. Martin, no additional IV fluids needed at this time. LR infusion completed (was previously infusing at 100 ml/hr over 10 hours). Pt sleeping at this time. Respirations even/unlabored. Care ongoing by this RN.
[2024-11-12 06:11] LABS: MANUAL DIFF FLAG NO
[2024-11-12 06:39] LABS: Anion Gap 11 (12-20); Blood Urea Nitrogen 6 mg/dL (9-16); Calcium 8.5 mg/dL (8.4-10.2); Carbon Dioxide 26 mmol/L (22-29); Chloride 106 mmol/L (96-108); Creatinine Clr Calc Pharmacy 80.3; Estimated Glomerular Filt Rate > 60; Potassium 3.3 mmol/L (3.3-5.1); Sodium 140 mmol/L (135-145)
[2024-11-12 06:41] LABS: Magnesium 1.9 mg/dL (1.6-2.6)
[2024-11-12 06:43] LABS: Hematocrit 31.5 % (37.0-47.0); Hemoglobin 10.6 g/dl (12.0-16.0); Imm Gran Abs Auto 0.01 X10*3/uL (0.00-0.03); Imm Gran Pct Auto 0.2 % (0.0-0.4); Lymphocytes Absolute Auto 1.4 X10*3/uL (1.2-4.9); Mean Corpuscular HGB Conc 33.7 g/dl (31.0-35.0); Mean Corpuscular Hemoglobin 29.6 pg (27.0-33.0); Mean Corpuscular Volume 88.0 fL (80.0-98.0); NRBC Abs Auto 0.000 X10*3/uL (0.0-0.012); NRBC Pct Auto 0.0 /100WBC (0.0-0.2); Platelet Count 230 X10*3/uL (160-400); Red Blood Count 3.58 X10*6/uL (4.20-5.50); White Blood Count 6.2 X10*3/uL (4.8-10.8)
[2024-11-12 08:08] VITALS: BP 101/41; PULSE 76; RESP 17; O2SAT 97
[2024-11-12 08:22] LABS: Glucose, Whole Blood 152 mg/dL (60-115)
--- NOTE | 2024-11-12 09:42 | PM.CNCAR ---
History of Present Illness History of Present Illness Date of Service: 11/12/24 Chief complaint: Encephalopathy Narrative: This is a cardiology consultation regarding chest pain and elevated troponins. Patient has many comorbidities including liver cirrhosis, mild coronary disease, asthma/COPD among others. She came to the hospital for abdominal pain associated with multiple episodes of nausea, vomiting and sweating. In the setting, she had also complained of chest pain which led to this consultation. Currently, she states that she is feeling better overall. She was last seen in the clinic in August of this year. Based on that note, she had minimal to mild stenosis in coronary CTA. She was mainly recommended risk factor modification and cutting back on drinking. Review of Systems Review of Systems: Yes all other systems are reviewed and are negative Constitutional: Constitutional: Reports as per HPI and Reports no additional constitutional complaints Eyes: Eyes: Reports as per HPI and Denies no additional eye complaints ENT: Denies system reviewed and no additional complaints, except as documented and Reports as per HPI Cardiovascular: Cardiovascular: Reports as per HPI, Reports no additional cardiovascular complaints, Denies acrocyanosis, Denies cool extremities, Denies chest pain, Denies leg edema, Denies lightheadedness, Denies palpitations and Denies dyspnea Respiratory: Respiratory: Reports as per HPI, Denies no additional respiratory complaints and Denies dyspnea Gastrointestinal: Gastrointestinal: Reports as per HPI and Denies no additional gastrointestinal complaints Genitourinary: Genitourinary: Reports as per HPI Musculoskeletal: Musculoskeletal: Reports no additional musculoskeletal complaints and Reports as per HPI Integumentary/Breasts: Skin/Breast: Reports system reviewed and no additional complaints, except as docu Neurologic: Reports system reviewed and no additional complaints, except as documented and Reports as per HPI Psychiatric: Psychiatric: Reports no additional psychiatric complaints and Reports as per HPI Endocrine: Endocrine: Reports no additional endocrine complaints, Reports as per HPI and Denies palpitations Hematologic/Lymphatic: Hematologic/Lymphatic: Reports no additional hematologic/lymphatic complaints and Reports as per HPI Allergic/Immunologic: Allergic/Immunologic: Reports no additional allergic/immunologic complaints and Reports as per HPI PMF Past Medical History Medical History CAD (coronary artery disease) Dyspnea Asthma-COPD overlap syndrome Alcohol use History of methadone use Personal history of nicotine dependence Asthma Obesity (BMI 30-39.9) GERD (gastroesophageal reflux disease) Cirrhosis Vitamin D deficiency Hypertension Dyslipidemia Non-toxic multinodular goiter Osteoporosis Diabetic 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 with type 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 Diabetes type 2, uncontrolled Family History Family History Father Esophageal cancer Mother Diabetes mellitus HTN (hypertension) Surgical History Surgical History Status post biopsy of thyroid gland History of colonoscopy (~2016) Hx of cataract extraction History of esophagogastroduodenoscopy (EGD) (~2020) Hx of cardiac cath (~12/2015) Hx of cholecystectomy (~1980) History of bladder surgery (~06/2019) Social History Social History Household Members: Spouse Alcohol intake: current Alcohol intake frequency: 3 or more drinks per day Alcohol type: beer Patient Tobacco Use Status: Former Tobacco user Tobacco use type: Cigarette Years Smoked: Onset 27, 2ppd x 24yrs, 48pyh, quit 11/2012 Smoked in Last 30 Days: No Use of substances other than those prescribed or required for medical reasons: No Advance Directives: Yes Advance Directives on File: Yes Advance Directives Date on File: 02/28/21 Nutrition Risks: No Nutritional Risk Meds Allergies Allergy/AdvReac Type Severity Reaction Status Date / Time cornflower (Cornflower) Allergy Unknown ITCHY Verified 11/11/24 12:35 EYES/HIVES peach (PEACH) Allergy Unknown NATURAL Verified 11/11/24 12:35 FRUIT - MOUTH ITCHES cornell (cherries) Allergy Unknown Verified 11/11/24 12:35 No Known Drug Allergies Allergy none Verified 11/11/24 12:35 apples Allergy Unknown Unknown Uncoded 11/11/24 12:35 peanut Allergy Unknown Unknown Uncoded 11/11/24 12:35 Active Medications: Current Medications Acetaminophen (Acetaminophen 325 Mg Tablet) 650 mg PO Q6H PRN PRN Reason: Pain, Mild (Pain Scale 1-3) Albuterol Sulfate (Albuterol Sulfate 90 Mcg 8 Gm Inhaler) 2 puff INHALE Q6H PRN PRN Reason: Shortness of Breath Atorvastatin Calcium (Atorvastatin Calcium 40 Mg Tablet) 40 mg PO BEDTIME JONO Ceftriaxone Sodium (Ceftriaxone Sodium 1 Gm Vial) 1 gm IVPUSH Q24H JONO Last Admin: 11/12/24 09:05 Dose: 1 gm Dextrose (Dextrose 50 % 25 Gm/50 Ml Syringe) 25 gm IVPUSH Q15M PRN; Protocol PRN Reason: per Hypoglycemia Standing Ord. Ergocalciferol (Ergocalciferol (Vitamin D2) 1,250 Mcg Capsule) 1,250 mcg PO Q7D [facility] Fenofibrate (Fenofibrate,Micronized 134 Mg Capsule) 134 mg PO BEDTIME [facility] Folic Acid (Folic Acid 1 Mg Tablet) 1 mg PO DAILY [facility] Last Admin: 11/12/24 09:06 Dose: 1 mg Gabapentin (Gabapentin 300 Mg Capsule) 300 mg PO BID [facility] Last Admin: 11/12/24 09:06 Dose: 300 mg Glucose (Glucose Gel 15 Gm Gel..Gram.) 15 gm PO Q15M PRN; Protocol PRN Reason: per Hypoglycemia Standing Ord. Hydromorphone HCl (Hydromorphone Hcl 0.5 Mg/0.5 Ml Syringe) 0.5 mg IVPUSH Q3H PRN; Protocol PRN Reason: Pain, Severe (Pain Scale 7-10) Insulin Human Lispro (Insulin Lispro 100 Unit/Ml 3 Ml Vial) 0 unit SUBCUT Q6H [facility]; Protocol Last Admin: 11/12/24 08:22 Dose: Not Given Loratadine (Loratadine 10 Mg Tablet) 10 mg PO DAILY [facility] Last Admin: 11/12/24 09:06 Dose: 10 mg Mirabegron (Mirabegron 25 Mg Tab.Er.24h) 25 mg PO DAILY [facility] Naltrexone HCl (Naltrexone Hcl 50 Mg Tablet) 50 mg PO DAILY [facility] Last Admin: 11/12/24 09:06 Dose: 50 mg Non-Formulary Medication (Linaclotide [Linzess]) 72 mcg PO DAILY [facility] Pantoprazole Sodium (Pantoprazole Sodium 40 Mg/10 Ml Vial) 40 mg IVPUSH DAILY@0630 [facility] Last Admin: 11/12/24 09:07 Dose: 40 mg Prochlorperazine Edisylate (Prochlorperazine Edisylate 10 Mg/2 Ml Vial) 5 mg IVPUSH Q6H PRN PRN Reason: Nausea and Vomiting Sertraline HCl (Sertraline Hcl 50 Mg Tablet) 50 mg PO DAILY [facility] Last Admin: 11/12/24 09:06 Dose: 50 mg Sodium Chloride (0.9 % Sodium Chloride Flush 3 Ml Syringe) 3 ml IVFLUSH QSHIFT [facility] Last Admin: 11/12/24 08:22 Dose: Not Given Thiamine HCl (Thiamine Hcl 100 Mg Tablet) 100 mg PO DAILY [facility] Last Admin: 11/12/24 09:06 Dose: 100 mg Home Medications ?Medication ?Instructions ?Recorded ?Confirmed ?Last Taken ?Type lancets 28 gauge (FreeStyle #100 ea 03/16/20 09/16/24 Unknown History Lancets) sertraline 50 mg tablet (Zoloft) 50 mg PO DAILY 03/16/20 11/11/24 Unknown History trazodone 100 mg tablet 200 mg PO BEDTIME PRN Insomnia 03/16/20 11/11/24 Unknown History pantoprazole 20 mg tablet,delayed 20 mg PO BID 04/28/21 11/11/24 Unknown History release blood pressure test kit-large #1 ea 12/01/21 09/16/24 Unknown History flash glucose scanning reader 12/01/21 09/16/24 Unknown History (FreeStyle Lakeisha 2 [place]) flash glucose sensor (FreeStyle 12/01/21 09/16/24 Unknown History Lakeisha 2 Sensor kit) losartan 25 mg tablet 25 mg PO QAM 12/01/21 11/11/24 Unknown History lancets 33 gauge (TRUEplus Lancets) #100 ea 04/20/22 09/16/24 Unknown History pen needle, diabetic 32 gauge x #50 ea 04/20/22 09/16/24 Unknown History (BD Ultra-Fine Debbie Pen Needle) mirabegron 25 mg tablet,extended 25 mg PO QAM 02/15/23 11/11/24 Unknown History release 24 hr (Myrbetriq) Oxygen Home Use 06/11/23 09/16/24 Unknown History nebulizers 06/11/23 09/16/24 Unknown History ferrous sulfate 325 mg (65 mg 325 mg PO MOWEFR 08/09/23 11/11/24 Unknown History iron) tablet (FeroSul) albuterol sulfate 90 mcg/actuation 2 puff inhalation Q6H PRN 11/11/24 11/11/24 Unknown History aerosol inhaler (Ventolin HFA) Shortness Of Breath atorvastatin 40 mg tablet 40 mg PO BEDTIME 11/11/24 11/11/24 Unknown History calcium carbonate 500 mg PO BID 11/11/24 11/11/24 Unknown History cetirizine 10 mg tablet 10 mg PO QAM 11/11/24 11/11/24 Unknown History ergocalciferol (vitamin D2) 1,250 1,250 mcg PO Q7D 11/11/24 11/11/24 Unknown History mcg (50,000 unit) capsule fenofibrate micronized 134 mg 134 mg PO QPM 11/11/24 11/11/24 Unknown History capsule folic acid 1 mg tablet 1 mg PO DAILY 11/11/24 11/11/24 Unknown History gabapentin 300 mg capsule 300 mg PO BID 11/11/24 11/11/24 Unknown History insulin glargine 100 unit/mL (3 unit subcut 11/11/24 Unknown History mL) subcutaneous pen (Lantus Solostar U-100 Insulin) insulin lispro 100 unit/mL subcut 11/11/24 Unknown History subcutaneous pen linaclotide 72 mcg capsule 72 mcg PO QAM 11/11/24 11/11/24 Unknown History (Linzess) naltrexone 50 mg tablet 50 mg PO QAM 11/11/24 11/11/24 Unknown History thiamine HCl (vitamin B1) 100 mg 100 mg PO QAM 11/11/24 11/11/24 Unknown History tablet Physical Exam Vital Signs: Vital Signs: Last Vital Signs Temp 97.9 F 11/12/24 01:22 Pulse 76 11/12/24 08:08 Resp 17 11/12/24 08:08 BP 101/41 L 11/12/24 08:08 Pulse Ox 97 11/12/24 08:08 O2 Del Method Nasal Cannula 11/12/24 08:08 O2 Flow Rate 2 11/12/24 08:08 BMI result Body Mass Index 30.6 Const: General: comfortable and no acute distress Orientation/consciousness: patient oriented x3 HEENT: Other: Unremarkable Head: Yes normal to inspection Neck: Neck: Yes normal visual inspection Chest: Chest palpation & inspection: normal inspection of the chest Resp: Auscultation: clear to auscultation bilaterally Cardio: Palpation: normal PMI Heart sounds: S1 normal heart sound present, S2 normal heart sound present, no gallops, no murmurs and no rubs GI: Palpation (GI): Soft to palpation Back/Spine/Pelvis: Other: unremarkable Skin: General skin exam: no rashes or lesions noted Neuro: General: patient oriented x3 Extrem: General: Yes normal to inspection Psych: Mental Status: mental status grossly normal Objective Labs and Meds 11/12/24 06:06 11/12/24 06:06 Lab results: Laboratory Results - last 24 hr 11/11/24 11/11/24 11/11/24 13:12 13:13 15:41 WBC 9.7 RBC 4.00 L Hgb 11.9 L Hct 33.9 L MCV 84.8 MCH 29.8 MCHC 35.1 H RDW 18.3 H Plt Count 266 MPV 9.7 Immature Gran % (Auto) 0.4 Neut % (Auto) 88.3 H Lymph % (Auto) 7.4 L [place] % (Auto) 3.8 Eos % (Auto) 0.0 Baso % (Auto) 0.1 Lymph # (Auto) 0.7 L [place] # (Auto) 0.4 Eos # (Auto) 0.0 Baso # (Auto) 0.0 Abs Immat Gran (auto) 0.04 H Absolute Neuts (auto) 8.6 H Absolute Nucleated RBC 0.000 Nucleated RBC % (auto) 0.0 Hold Purple Top Sodium 137 Potassium 3.6 Chloride 100 Carbon Dioxide 23 Anion Gap 18 BUN 7 L Creatinine 0.64 Estim Creat Clear Calc 80.3 Estimated GFR > 60 POC Glucose Random Glucose 285 H Lactic Acid 1.6 Calcium 9.2 D Magnesium 1.8 Total Bilirubin 1.0 Direct Bilirubin 0.5 AST 39 H ALT 29 Alkaline Phosphatase 75 Ammonia Troponin I High Sens 34.6 H D 52.5 H* D Total Protein 7.8 Albumin 4.1 Lipase < 4 L Hold Yellow Top Urine Color Yellow Urine Appearance Turbid Urine pH >= 9.0 Ur Specific [place] 1.015 Urine Protein 100 (2+) H Urine Glucose (UA) 500 H Urine Ketones 15 Urine Blood Small (1+) H Urine Nitrite Positive H Ur Leukocyte Esterase Large (3+) H Urine RBC 3-5 H Urine WBC >50 H Ur Squamous Epith Cells 0-2 Urine Bacteria 4+ Hyaline Casts 0-2 Influenza Type A (PCR) NEGATIVE Influenza Type B (PCR) NEGATIVE RSV RNA Qual (PCR) NEGATIVE SARS-CoV-2 RNA (RT-PCR) NEGATIVE 11/11/24 11/11/24 11/11/24 17:22 18:26 22:42 WBC RBC Hgb Hct MCV MCH MCHC RDW Plt Count MPV Immature Gran % (Auto) Neut % (Auto) Lymph % (Auto) [place] % (Auto) Eos % (Auto) Baso % (Auto) Lymph # (Auto) [place] # (Auto) Eos # (Auto) Baso # (Auto) Abs Immat Gran (auto) Absolute Neuts (auto) Absolute Nucleated RBC Nucleated RBC % (auto) Hold Purple Top SEE NOTE Sodium Potassium Chloride Carbon Dioxide Anion Gap BUN Creatinine Estim Creat Clear Calc Estimated GFR POC Glucose 151 H Random Glucose Lactic Acid Calcium Magnesium Total Bilirubin Direct Bilirubin AST ALT Alkaline Phosphatase Ammonia 21 Troponin I High Sens 32.9 H Total Protein Albumin Lipase Hold Yellow Top See Note Urine Color Urine Appearance Urine pH Ur Specific [place] Urine Protein Urine Glucose (UA) Urine Ketones Urine Blood Urine Nitrite Ur Leukocyte Esterase Urine RBC Urine WBC Ur Squamous Epith Cells Urine Bacteria Hyaline Casts Influenza Type A (PCR) Influenza Type B (PCR) RSV RNA Qual (PCR) SARS-CoV-2 RNA (RT-PCR) 11/12/24 11/12/24 11/12/24 00:17 06:06 08:18 WBC 6.2 RBC 3.58 L Hgb 10.6 L Hct 31.5 L MCV 88.0 MCH 29.6 MCHC 33.7 RDW 18.6 H Plt Count 230 MPV 9.9 Immature Gran % (Auto) 0.2 Neut % (Auto) 68.0 Lymph % (Auto) 22.5 [place] % (Auto) 8.2 Eos % (Auto) 0.8 Baso % (Auto) 0.3 Lymph # (Auto) 1.4 [place] # (Auto) 0.5 Eos # (Auto) 0.1 Baso # (Auto) 0.0 Abs Immat Gran (auto) 0.01 Absolute Neuts (auto) 4.2 Absolute Nucleated RBC 0.000 Nucleated RBC % (auto) 0.0 Hold Purple Top Sodium 140 Potassium 3.3 Chloride 106 Carbon Dioxide 26 Anion Gap 11 L BUN 6 L Creatinine 0.64 Estim Creat Clear Calc 80.3 Estimated GFR > 60 POC Glucose 124 H 152 H Random Glucose 139 H Lactic Acid Calcium 8.5 D Magnesium 1.9 Total Bilirubin Direct Bilirubin AST ALT Alkaline Phosphatase Ammonia Troponin I High Sens Total Protein Albumin Lipase Hold Yellow Top Urine Color Urine Appearance Urine pH Ur Specific [place] Urine Protein Urine Glucose (UA) Urine Ketones Urine Blood Urine Nitrite Ur Leukocyte Esterase Urine RBC Urine WBC Ur Squamous Epith Cells Urine Bacteria Hyaline Casts Influenza Type A (PCR) Influenza Type B (PCR) RSV RNA Qual (PCR) SARS-CoV-2 RNA (RT-PCR) ECG Interpretation: EKG with underlying sinus rhythm at 84/Min; nonspecific ST-T changes. In the repeat EKG, improved. Imaging Radiologist's impression: Impressions Abdomen/Pelvis CT 11/11/24 13:21 IMPRESSION: 1. Heterogeneous material in the uterus, highly suggestive of a mass. Pelvic ultrasound is recommended. 2. Cirrhosis of the liver. 3. Splenomegaly. Multiple focal splenic hypodense lesions, of uncertain etiology. Electronically signed by: Kaushik Ramirez MD 11/11/2024 02:57 PM EDT Assessment and Plan (1) Precordial chest pain: Status: Acute (2) Elevated troponin: Status: Acute Plan Troponin levels are 34, 52 and 33. Coronary CTA 2023-mild stenosis in the mid LAD due to short segment of calcific plaque. Minimal stenosis due to calcific mixed plaques in the left main, proximal LAD, proximal circumflex, proximal RCA. Overall, but chest pain itself seems nonspecific. Could be just noncardiac. Slight elevation in troponin is also not of any significance especially as there is no evidence of any obstructive disease. She might have some microvascular disease that could demand related troponin leak. In summary, there is no specific significance for this troponin leak and continue with mainly risk factor modification. Treat underlying medical issues otherwise. Procedures Date of Service Date of Service: 11/12/24
[2024-11-12 11:53] VITALS: BP 112/38; PULSE 84; RESP 13; TEMP 36.7; O2SAT 99
--- NOTE | 2024-11-12 12:00 | CA_ITS ---
Transthoracic Echocardiogram Patient (Last, First, Middle): Shireen Tavarez, Gender: Female Date of : 1960 Age: 63 Procedure Date: 11/12/2024 Procedure Type: Transthoracic Echocardiogram Location: ER Height: 154.94 cm Weight: 73.48 kg BSA: 1.73 m2 Heart Rate: 64 bpm BP: 126 / 46 mmHg License Inspector: SB Referring MD: Dylan Adams MD Symptoms: trop leak Study Quality: Adequate with contrast ECG Rhythm: Sinus Conclusions: - The left ventricular systolic function is mild to moderately decreased. The calculated ejection fraction is 42% by biplane method. - The inferoseptal wall and basal inferior segment are hypokinetic. - No obvious valvular pathology seen on this study. Findings Procedure Information Contrast agent, definity, is being given per protocol without apparent complications. Left Ventricle Moderately increased left ventricular cavity size. There is normal left ventricular wall thickness. The left ventricular systolic function is mild to moderately decreased. The calculated ejection fraction is 42% by biplane method. Evidence suggests grade II (moderate) diastolic dysfunction. Wall Motion Rest Echo Findings The inferoseptal wall and basal inferior segment are hypokinetic. Right Ventricle Normal right ventricular cavity size and systolic function. Atria Both atria are normal in size. Aortic Valve There is a normal trileaflet aortic valve. There is no aortic valve stenosis. There is no aortic valve regurgitation. Mitral Valve There is mild mitral annular calcification. There is trace mitral valve regurgitation. There is no mitral valve stenosis. Pulmonic Valve The pulmonic valve is likely normal. Tricuspid Valve There is no tricuspid valve regurgitation. There is no evidence of pulmonary hypertension. Great Vessels The asc aorta is normal in size. Venous The inferior vena cava is normal in size and collapses less than 50% with inspiration. Pericardium/Pleural There is no evidence of pericardial effusion. Prior Study Comparison Changes noted compared to prior study dated: 01/11/2024. LVEF lower than previously reported. However, on review of prior images LVEF does appear slightly diminished. Recommendations, Care & Conclusions No obvious valvular pathology seen on this study. Measurements 2D Linear Measurements IVSd: 0.76 0.6-0.9/0.6-1.0 cm LVIDd: 6.09 3.9-5.3/4.2-5.9 cm LVIDd Index: 3.52 2.4-3.2/2.2-3.1 cm/m2 LVIDs: 4.63 2.0-3.6 cm LVPWd: 0.68 0.7-1.1 cm LA Diam: 3.60 2.7-3.8/3.0-4.0 cm LAIDs Index: 2.08 1.5-2.3 cm/m2 LV Mass: 208.78 67-162/88-224 g LV Mass Index: 120.68 43-95/49-115 g/m2 LVOT Diam: 2.00 3.0+(-)1.3 cm 2D Systolic Function EF 4C: 45.80 >55% EF 2C: 40.50 >55% EF BiP: 41.80 >55% Mitral Valve MV Pk E: 1.04 MV PK A: 0.70 MV Decel Time: 163.00 E/A: 1.50 E'Lateral: 7.72 E'Medial: 4.46 E/E' Med: 23.30 E/E' Lat: 13.50 PHT: 48.00 MVA PHT: 4.58 Decel [place]: 6.35 Aortic Valve AoV Pk [place]: 1.51 AoV Pk Grad: 9.00 GAMAL: 2.26 LVOT LVOT Pk [place]: 1.10 LVOT Mn [place]: 0.75 LVOT VTI: 0.24 LVOT Pk Grad: 5.00 LVOT Mn Grad: 3.00 LVOT Diam: 2.00 LVOT Area: 3.14 Diastolic Function MV Pk E: 1.04 MV Pk A: 0.70 E/A: 1.50 E'Medial: 4.46 E/E' Med: 23.30 E' Laterial: 7.72 E/E' Lat: 13.50 Right Ventricle TAPSE (mm): 17.50 TVS' [place]: 11.20 Tricuspid Valve TR Pk [place]: 2.51 TR Pk Grad: 25.00 RA Press: 8.00 RVSP: 33.00 Great Vessels Aorta Sinus of Valsalva: 2.60 2.0-3.5 cm Ao Asc: 3.10 2.1-3.4 cm Pulmonary Valve PV Pk [place]: 1.10 Peak PV Grad: 5.00 Updated in Other Vendor System with Status of Final Billy Malcolm MD electronically signed on 11/12/2024 3:42:19 PM with status of Final
--- NOTE | 2024-11-12 12:45 | P.PNIM_ITS ---
Subjective Subjective Date of Service: 11/12/24 Interval History: This history was taken in Korean from the patient. Abd pain resolving, has some dysuria Occasional cough, no wheezing Review of Systems Review of Systems: Yes all other systems are reviewed and are negative Physical Exam 2 Vital Signs: Vital Signs: Last Vital Signs Temp 98.0 F 11/12/24 11:53 Pulse 84 11/12/24 11:53 Resp 13 11/12/24 11:53 BP 112/38 L 11/12/24 11:53 Pulse Ox 99 11/12/24 11:53 O2 Del Method Nasal Cannula 11/12/24 11:53 O2 Flow Rate 2 11/12/24 11:53 BMI result Body Mass Index 30.6 Gen: in no acute distress HEENT: sclera anicteric, moist mucus membranes Neck: supple Lungs: clear to auscultation bilaterally Heart: regular rate and rhythm, no murmurs Abd: soft, non-tender, non-distended Ext: no edema Skin: warm/well-perfused Neuro: alert and oriented x3, no focal findings Psych: appropriate affect Objective Data Active Medications Acetaminophen (Acetaminophen 325 Mg Tablet) 650 mg PO Q6H PRN PRN Reason: Pain, Mild (Pain Scale 1-3) Albuterol Sulfate (Albuterol Sulfate 90 Mcg 8 Gm Inhaler) 2 puff INHALE Q6H PRN PRN Reason: Shortness of Breath Atorvastatin Calcium (Atorvastatin Calcium 40 Mg Tablet) 40 mg PO BEDTIME [facility] Ceftriaxone Sodium (Ceftriaxone Sodium 1 Gm Vial) 1 gm IVPUSH Q24H [facility] Last Admin: 11/12/24 09:05 Dose: 1 gm Documented By: DEEPA Dextrose (Dextrose 50 % 25 Gm/50 Ml Syringe) 25 gm IVPUSH Q15M PRN; Protocol PRN Reason: per Hypoglycemia Standing Ord. Ergocalciferol (Ergocalciferol (Vitamin D2) 1,250 Mcg Capsule) 1,250 mcg PO Q7D [facility] Fenofibrate (Fenofibrate,Micronized 134 Mg Capsule) 134 mg PO BEDTIME [facility] Folic Acid (Folic Acid 1 Mg Tablet) 1 mg PO DAILY [facility] Last Admin: 11/12/24 09:06 Dose: 1 mg Documented By: DEEPA Gabapentin (Gabapentin 300 Mg Capsule) 300 mg PO BID [facility] Last Admin: 11/12/24 09:06 Dose: 300 mg Documented By: DEEPA Glucose (Glucose Gel 15 Gm Gel..Gram.) 15 gm PO Q15M PRN; Protocol PRN Reason: per Hypoglycemia Standing Ord. Hydromorphone HCl (Hydromorphone Hcl 0.5 Mg/0.5 Ml Syringe) 0.5 mg IVPUSH Q3H PRN; Protocol PRN Reason: Pain, Severe (Pain Scale 7-10) Insulin Human Lispro (Insulin Lispro 100 Unit/Ml 3 Ml Vial) 0 unit SUBCUT Q6H [facility]; Protocol Last Admin: 11/12/24 08:22 Dose: Not Given Documented By: DEEPA Non-Admin Reason: NPO Loratadine (Loratadine 10 Mg Tablet) 10 mg PO DAILY [facility] Last Admin: 11/12/24 09:06 Dose: 10 mg Documented By: DEEPA Mirabegron (Mirabegron 25 Mg Tab.Er.24h) 25 mg PO DAILY [facility] Last Admin: 11/12/24 10:00 Dose: 25 mg Documented By: DEEPA Naltrexone HCl (Naltrexone Hcl 50 Mg Tablet) 50 mg PO DAILY [facility] Last Admin: 11/12/24 09:06 Dose: 50 mg Documented By: DEEPA Non-Formulary Medication (Linaclotide [Linzess]) 72 mcg PO DAILY [facility] Pantoprazole Sodium (Pantoprazole Sodium 40 Mg/10 Ml Vial) 40 mg IVPUSH DAILY@0630 [facility] Last Admin: 11/12/24 09:07 Dose: 40 mg Documented By: DEEPA Prochlorperazine Edisylate (Prochlorperazine Edisylate 10 Mg/2 Ml Vial) 5 mg IVPUSH Q6H PRN PRN Reason: Nausea and Vomiting Sertraline HCl (Sertraline Hcl 50 Mg Tablet) 50 mg PO DAILY [facility] Last Admin: 11/12/24 09:06 Dose: 50 mg Documented By: DEEPA Sodium Chloride (0.9 % Sodium Chloride Flush 3 Ml Syringe) 3 ml IVFLUSH QSHIFT [facility] Last Admin: 11/12/24 08:22 Dose: Not Given Documented By: DEEPA Non-Admin Reason: See Note Thiamine HCl (Thiamine Hcl 100 Mg Tablet) 100 mg PO DAILY [facility] Last Admin: 11/12/24 09:06 Dose: 100 mg Documented By: DEEPA Labs 11/12/24 06:06 11/12/24 06:06 Labs: Laboratory Results - last 24 hr 11/11/24 11/11/24 11/11/24 13:12 13:13 15:41 MCV 84.8 MCH 29.8 MCHC 35.1 H RDW 18.3 H Plt Count 266 MPV 9.7 Immature Gran % (Auto) 0.4 Neut % (Auto) 88.3 H Lymph % (Auto) 7.4 L [place] % (Auto) 3.8 Eos % (Auto) 0.0 Baso % (Auto) 0.1 Lymph # (Auto) 0.7 L [place] # (Auto) 0.4 Eos # (Auto) 0.0 Baso # (Auto) 0.0 Abs Immat Gran (auto) 0.04 H Absolute Neuts (auto) 8.6 H Absolute Nucleated RBC 0.000 Nucleated RBC % (auto) 0.0 Hold Purple Top Anion Gap 18 Estim Creat Clear Calc 80.3 Estimated GFR > 60 POC Glucose Random Glucose 285 H Lactic Acid 1.6 Calcium 9.2 D Magnesium 1.8 Total Bilirubin 1.0 Direct Bilirubin 0.5 AST 39 H ALT 29 Alkaline Phosphatase 75 Ammonia Total Protein 7.8 Albumin 4.1 Lipase < 4 L Hold Yellow Top Urine Color Yellow Urine Appearance Turbid Urine pH >= 9.0 Ur Specific [place] 1.015 Urine Protein 100 (2+) H Urine Glucose (UA) 500 H Urine Ketones 15 Urine Blood Small (1+) H Urine Nitrite Positive H Ur Leukocyte Esterase Large (3+) H Urine RBC 3-5 H Urine WBC >50 H Ur Squamous Epith Cells 0-2 Urine Bacteria 4+ Hyaline Casts 0-2 Influenza Type A (PCR) NEGATIVE Influenza Type B (PCR) NEGATIVE RSV RNA Qual (PCR) NEGATIVE SARS-CoV-2 RNA (RT-PCR) NEGATIVE 11/11/24 11/11/24 11/11/24 17:22 18:26 22:42 MCV MCH MCHC RDW Plt Count MPV Immature Gran % (Auto) Neut % (Auto) Lymph % (Auto) [place] % (Auto) Eos % (Auto) Baso % (Auto) Lymph # (Auto) [place] # (Auto) Eos # (Auto) Baso # (Auto) Abs Immat Gran (auto) Absolute Neuts (auto) Absolute Nucleated RBC Nucleated RBC % (auto) Hold Purple Top SEE NOTE Anion Gap Estim Creat Clear Calc Estimated GFR POC Glucose 151 H Random Glucose Lactic Acid Calcium Magnesium Total Bilirubin Direct Bilirubin AST ALT Alkaline Phosphatase Ammonia 21 Total Protein Albumin Lipase Hold Yellow Top See Note Urine Color Urine Appearance Urine pH Ur Specific [place] Urine Protein Urine Glucose (UA) Urine Ketones Urine Blood Urine Nitrite Ur Leukocyte Esterase Urine RBC Urine WBC Ur Squamous Epith Cells Urine Bacteria Hyaline Casts Influenza Type A (PCR) Influenza Type B (PCR) RSV RNA Qual (PCR) SARS-CoV-2 RNA (RT-PCR) 11/12/24 11/12/24 11/12/24 00:17 06:06 08:18 MCV 88.0 MCH 29.6 MCHC 33.7 RDW 18.6 H Plt Count 230 MPV 9.9 Immature Gran % (Auto) 0.2 Neut % (Auto) 68.0 Lymph % (Auto) 22.5 [place] % (Auto) 8.2 Eos % (Auto) 0.8 Baso % (Auto) 0.3 Lymph # (Auto) 1.4 [place] # (Auto) 0.5 Eos # (Auto) 0.1 Baso # (Auto) 0.0 Abs Immat Gran (auto) 0.01 Absolute Neuts (auto) 4.2 Absolute Nucleated RBC 0.000 Nucleated RBC % (auto) 0.0 Hold Purple Top Anion Gap 11 L Estim Creat Clear Calc 80.3 Estimated GFR > 60 POC Glucose 124 H 152 H Random Glucose 139 H Lactic Acid Calcium 8.5 D Magnesium 1.9 Total Bilirubin Direct Bilirubin AST ALT Alkaline Phosphatase Ammonia Total Protein Albumin Lipase Hold Yellow Top Urine Color Urine Appearance Urine pH Ur Specific [place] Urine Protein Urine Glucose (UA) Urine Ketones Urine Blood Urine Nitrite Ur Leukocyte Esterase Urine RBC Urine WBC Ur Squamous Epith Cells Urine Bacteria Hyaline Casts Influenza Type A (PCR) Influenza Type B (PCR) RSV RNA Qual (PCR) SARS-CoV-2 RNA (RT-PCR) Microbiology Microbiology Results: Microbiology 11/11/24 Unknown Urine Culture - Preliminary Urine clean catch - Clean Catch Midstream Gram negative dwayne Assessment and Plan (1) Acute UTI: Status: Acute Plan d2, 63yo F with EtOH cirrhosis, HFrEF/mod diastolic HF, mild CAD, CHERISE, asthma/COPD overlap on home O2, HTN, HLD, DM2; recent hospitalization at [facility] with Wernicke encephalopathy; sent in from SNF due to N/V abd pain, found to have UTI UTI - ceftriaxone 11/11-, follow BCx + UCx [growing GNRs] abd pain - IV PPI for possible gastritis though symptoms could be from UTI; advance diet troponin leak, mild - Cardiology consulted, no evidence of obstructive disease on prior coronary CTA uterine mass on CT + US - 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 Quality Stroke Does the patient have a stroke diagnosis?: No VTE Prior VTE?: No VTE Risk Level:: Medical - moderate - high VTE Device Contraindication: Treatment Not Indicated VTE Drug Contraindication: N/A - Med Ordered
[2024-11-12 12:54] LABS: Glucose, Whole Blood 142 mg/dL (60-115)
--- NOTE | 2024-11-12 13:32 | PM.GYNCN ---
SKIRT TRIMMER - CN: HPI Data of Consult Consult date: 11/12/24 Requesting Physician: Dylan Adams MD Primary Care Provider: Shireen Krishnan MD Consult Narrative Narrative: I was consulted on Shireen Tavarez who is a 63 year old female admitted on the medical floor. Pelvic ultrasound showed the following: Uterus: The uterus is normal in size, measuring 7.7 x 3.5 x 5.7 cm. Myometrium has a normal echotexture. No fibroids are identified. Endometrium: There is an echogenic mass within the uterus measuring 3.7 x 2.5 x 3.8 cm. Right ovary: The right ovary measures 1.4 x 0.9 x 1.4 cm. The right ovary is normal in size and echotexture. Left ovary: The left ovary is not identified. Pelvic fluid: none. US/US pelvic complete IMPRESSION: 3.7 x 2.5 x 3.8 cm echogenic mass in the uterus. Evaluation is limited by lack of an endovaginal scan. SKIRT TRIMMER consultation is recommended. Last co testing in 03/01 was negative Last screening mammogram in 07/01 was BI-RADS 2 cc:: CC: Dylan Adams MD OB [facility] Past Medical History Medical History CAD (coronary artery disease) Dyspnea Asthma-COPD overlap syndrome Alcohol use History of methadone use Personal history of nicotine dependence Asthma Obesity (BMI 30-39.9) GERD (gastroesophageal reflux disease) Cirrhosis Vitamin D deficiency Hypertension Dyslipidemia Non-toxic multinodular goiter Osteoporosis Diabetic 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 with type 2 diabetes mellitus emt intermediate (current) use of insulin Diabetes type 2, uncontrolled Family History Family History Father Esophageal cancer Mother Diabetes mellitus HTN (hypertension) Surgical History Surgical History Status post biopsy of thyroid gland History of colonoscopy (~2016) Hx of cataract extraction History of esophagogastroduodenoscopy (EGD) (~2020) Hx of cardiac cath (~12/2015) Hx of cholecystectomy (~1980) History of bladder surgery (~06/2019) Social History Social History Household Members: Spouse Alcohol intake: current Alcohol intake frequency: 3 or more drinks per day Alcohol type: beer Patient Tobacco Use Status: Former Tobacco user Tobacco use type: Cigarette Years Smoked: Onset 27, 2ppd x 24yrs, 48pyh, quit 11/2012 Smoked in Last 30 Days: No Use of substances other than those prescribed or required for medical reasons: No Advance Directives: Yes Advance Directives on File: Yes Advance Directives Date on File: 02/28/21 Nutrition Risks: No Nutritional Risk service: No Meds Allergies Allergy/AdvReac Type Severity Reaction Status Date / Time cornflower (Cornflower) Allergy Unknown ITCHY Verified 11/11/24 12:35 EYES/HIVES peach (PEACH) Allergy Unknown NATURAL Verified 11/11/24 12:35 FRUIT - MOUTH ITCHES cornell (cherries) Allergy Unknown Verified 11/11/24 12:35 No Known Drug Allergies Allergy none Verified 11/11/24 12:35 apples Allergy Unknown Unknown Uncoded 11/11/24 12:35 peanut Allergy Unknown Unknown Uncoded 11/11/24 12:35 Active Medications: Current Medications Acetaminophen (Acetaminophen 325 Mg Tablet) 650 mg PO Q6H PRN PRN Reason: Pain, Mild (Pain Scale 1-3) Albuterol Sulfate (Albuterol Sulfate 90 Mcg 8 Gm Inhaler) 2 puff INHALE Q6H PRN PRN Reason: Shortness of Breath Atorvastatin Calcium (Atorvastatin Calcium 40 Mg Tablet) 40 mg PO BEDTIME [facility] Ceftriaxone Sodium (Ceftriaxone Sodium 1 Gm Vial) 1 gm IVPUSH Q24H [facility] Last Admin: 11/12/24 09:05 Dose: 1 gm Dextrose (Dextrose 50 % 25 Gm/50 Ml Syringe) 25 gm IVPUSH Q15M PRN; Protocol PRN Reason: per Hypoglycemia Standing Ord. Ergocalciferol (Ergocalciferol (Vitamin D2) 1,250 Mcg Capsule) 1,250 mcg PO Q7D [facility] Fenofibrate (Fenofibrate,Micronized 134 Mg Capsule) 134 mg PO BEDTIME [facility] Folic Acid (Folic Acid 1 Mg Tablet) 1 mg PO DAILY [facility] Last Admin: 11/12/24 09:06 Dose: 1 mg Gabapentin (Gabapentin 300 Mg Capsule) 300 mg PO BID [facility] Last Admin: 11/12/24 09:06 Dose: 300 mg Glucose (Glucose Gel 15 Gm Gel..Gram.) 15 gm PO Q15M PRN; Protocol PRN Reason: per Hypoglycemia Standing Ord. Hydromorphone HCl (Hydromorphone Hcl 0.5 Mg/0.5 Ml Syringe) 0.5 mg IVPUSH Q3H PRN; Protocol PRN Reason: Pain, Severe (Pain Scale 7-10) Insulin Human Lispro (Insulin Lispro 100 Unit/Ml 3 Ml Vial) 0 unit SUBCUT QIDACHS [facility]; Protocol Loratadine (Loratadine 10 Mg Tablet) 10 mg PO DAILY [facility] Last Admin: 11/12/24 09:06 Dose: 10 mg Mirabegron (Mirabegron 25 Mg Tab.Er.24h) 25 mg PO DAILY [facility] Last Admin: 11/12/24 10:00 Dose: 25 mg Naltrexone HCl (Naltrexone Hcl 50 Mg Tablet) 50 mg PO DAILY [facility] Last Admin: 11/12/24 09:06 Dose: 50 mg Non-Formulary Medication (Linaclotide [Linzess]) 72 mcg PO DAILY [facility] Pantoprazole Sodium (Pantoprazole Sodium 40 Mg/10 Ml Vial) 40 mg IVPUSH DAILY@0630 [facility] Last Admin: 11/12/24 09:07 Dose: 40 mg Prochlorperazine Edisylate (Prochlorperazine Edisylate 10 Mg/2 Ml Vial) 5 mg IVPUSH Q6H PRN PRN Reason: Nausea and Vomiting Sertraline HCl (Sertraline Hcl 50 Mg Tablet) 50 mg PO DAILY [facility] Last Admin: 11/12/24 09:06 Dose: 50 mg Sodium Chloride (0.9 % Sodium Chloride Flush 3 Ml Syringe) 3 ml IVFLUSH QSHIFT [facility] Last Admin: 11/12/24 12:59 Dose: Not Given Thiamine HCl (Thiamine Hcl 100 Mg Tablet) 100 mg PO DAILY [facility] Last Admin: 11/12/24 09:06 Dose: 100 mg Home Medications ?Medication ?Instructions ?Recorded ?Confirmed ?Last Taken ?Type lancets 28 gauge (FreeStyle #100 ea 03/16/20 09/16/24 Unknown History Lancets) sertraline 50 mg tablet (Zoloft) 50 mg PO DAILY 03/16/20 11/11/24 Unknown History trazodone 100 mg tablet 200 mg PO BEDTIME PRN Insomnia 03/16/20 11/11/24 Unknown History pantoprazole 20 mg tablet,delayed 20 mg PO BID 04/28/21 11/11/24 Unknown History release blood pressure test kit-large #1 ea 12/01/21 09/16/24 Unknown History flash glucose scanning reader 12/01/21 09/16/24 Unknown History (FreeStyle [place]isha 2 [place]) flash glucose sensor (FreeStyle 12/01/21 09/16/24 Unknown History Lakeisha 2 Sensor kit) losartan 25 mg tablet 25 mg PO QAM 12/01/21 11/11/24 Unknown History lancets 33 gauge (TRUEplus Lancets) #100 ea 04/20/22 09/16/24 Unknown History pen needle, diabetic 32 gauge x #50 ea 04/20/22 09/16/24 Unknown History (BD Ultra-Fine Debbie Pen Needle) mirabegron 25 mg tablet,extended 25 mg PO QAM 02/15/23 11/11/24 Unknown History release 24 hr (Myrbetriq) Oxygen Home Use 06/11/23 09/16/24 Unknown History nebulizers 06/11/23 09/16/24 Unknown History ferrous sulfate 325 mg (65 mg 325 mg PO MOWEFR 08/09/23 11/11/24 Unknown History iron) tablet (FeroSul) albuterol sulfate 90 mcg/actuation 2 puff inhalation Q6H PRN 11/11/24 11/11/24 Unknown History aerosol inhaler (Ventolin HFA) Shortness Of Breath atorvastatin 40 mg tablet 40 mg PO BEDTIME 11/11/24 11/11/24 Unknown History calcium carbonate 500 mg PO BID 11/11/24 11/11/24 Unknown History cetirizine 10 mg tablet 10 mg PO QAM 11/11/24 11/11/24 Unknown History ergocalciferol (vitamin D2) 1,250 1,250 mcg PO Q7D 11/11/24 11/11/24 Unknown History mcg (50,000 unit) capsule fenofibrate micronized 134 mg 134 mg PO QPM 11/11/24 11/11/24 Unknown History capsule folic acid 1 mg tablet 1 mg PO DAILY 11/11/24 11/11/24 Unknown History gabapentin 300 mg capsule 300 mg PO BID 11/11/24 11/11/24 Unknown History insulin glargine 100 unit/mL (3 unit subcut 11/11/24 Unknown History mL) subcutaneous pen (Lantus Solostar U-100 Insulin) insulin lispro 100 unit/mL subcut 11/11/24 Unknown History subcutaneous pen linaclotide 72 mcg capsule 72 mcg PO QAM 11/11/24 11/11/24 Unknown History (Linzess) naltrexone 50 mg tablet 50 mg PO QAM 11/11/24 11/11/24 Unknown History thiamine HCl (vitamin B1) 100 mg 100 mg PO QAM 11/11/24 11/11/24 Unknown History tablet SKIRT TRIMMER Physical Exam Vitals Vital signs: Temp Pulse Resp BP Pulse Ox O2 Del Method O2 Flow Rate 98.0 F 84 13 112/38 L 99 Nasal Cannula 2 11/12/24 11:53 11/12/24 11:53 11/12/24 11:53 11/12/24 11:53 11/12/24 11:53 11/12/24 11:53 11/12/24 11:53 BMI result Body Mass Index 30.6 Abdomen Auscultation/Inspection/Palpation: Normal bowel sounds and Soft Female Genitalia (Pelvic) Bladder/Urethra: Normal meatus Vulva: No lesions Vagina: Nontender Cervix: Grossly normal Uterus: Normal size Adnexa/Parametria: Adnexal Tenderness: None, Adnexal Mass: None, Parametrial Tenderness: None and Parametrial Mass: None SKIRT TRIMMER - Results Labs 11/12/24 06:06 11/12/24 06:06 Labs: Short CBC 11/12/24 Range/Units 06:06 WBC 6.2 (4.8-10.8) X10*3/uL Hgb 10.6 L (12.0-16.0) g/dl Hct 31.5 L (37.0-47.0) % Plt Count 230 (160-400) X10*3/uL BMP 11/11/24 11/12/24 13:13 06:06 Sodium 137 140 Potassium 3.6 3.3 Chloride 100 106 Carbon Dioxide 23 26 BUN 7 L 6 L Creatinine 0.64 0.64 Calcium 9.2 D 8.5 D Liver Function 11/11/24 Range/Units 13:13 Total Bilirubin 1.0 (0.0-1.0) mg/dL Direct Bilirubin 0.5 (0.0-0.5) mg/dL AST 39 H (5-31) U/L ALT 29 (0-31) U/L Alkaline Phosphatase 75 (39-117) U/L Albumin 4.1 (3.5-5.0) g/dL Urine 11/11/24 Range/Units 13:13 Urine Color Yellow Urine Appearance Turbid Urine pH >= 9.0 (5.0-9.0) Ur Specific [place] 1.015 (1.005-1.025) Urine Protein 100 (2+) H (Neg-Trace) mg/dL Urine Glucose (UA) 500 H (Negative) mg/dL Imaging US - abdomen: Radiologist's impression: ITS Impressions Abdomen/Pelvis CT 11/11/24 13:21 IMPRESSION: 1. Heterogeneous material in the uterus, highly suggestive of a mass. Pelvic ultrasound is recommended. 2. Cirrhosis of the liver. 3. Splenomegaly. Multiple focal splenic hypodense lesions, of uncertain etiology. Electronically signed by: Kaushik Ramirez MD 11/11/2024 02:57 PM EDT RP Pelvis Ultrasound 11/12/24 09:45 IMPRESSION: 3.7 x 2.5 x 3.8 cm echogenic mass in the uterus. Evaluation is limited by lack of an endovaginal scan. SKIRT TRIMMER consultation is recommended. Electronically signed by: Kaushik Ramirez MD 11/12/2024 10:35 AM EDT RP Assessment and Plan (1) Endometrial mass: Status: Acute Discussed with the patient the pelvic ultrasound findings, endometrial mass. Recommended to the patient that the next step is an endometrial sampling via hysteroscopy D&C possible polypectomy versus endometrial biopsy to r/o endometrial pathology including hyperplasia or cancer. All the pros and cons risks and benefits of each approach were discussed with the patient, endometrial biopsy being less invasive, office procedure with less sensitivity and inability diagnose a polyp and removal versus hysteroscopy done under anesthesia more invasive more sensitive to endometrial cancer and possibility of diagnosing and endometrial polyp with the possibility of polypectomy. All questions were answered pt verbalized understanding and decided to proceed with endometrial biopsy. EMB done, see procedure note Instructions given the patient to schedule a follow-up appointment within 2 weeks Endometrial Biopsy Details: The patient was counseled regarding the indication and benefits of endometrial sampling to rule out endometrial pathology including not limited to endometrial hyperplasia or endometrial cancer and others; The alternatives (Either do nothing vs. hysteroscopy D&C) & the risks were discussed with the patient including but not limited: pain, uterine perforation, bleeding, infection, possible injury to bladder, bowel, ureter, possible need for blood transfusion with all its possible risks. The patient verbalized understanding all questions answered and signed consent. The patient was placed into the dorsal lithotomy position; a speculum was inserted in the vagina. Using aseptic technique for the procedure, the cervix was cleansed with Betadine. The anterior lip of the cervix was grasped with a single tooth tenaculum. The uterus was sounded to 7 cm with a 4 mm Pipelle was used. Minimal to moderate Tissues samples were obtained and placed in formalin, in a patient labeled container and sent to the pathology department. At the end of the procedure, there was minimal bleeding noted The patient could not tolerate the procedure well and the procedure was aborted per patient request The patient was instructed to schedule a Follow up appointment in 2 weeks to discuss pathology results of the biopsy and treatment options. This note was generated with a voice recognition program. Some errors may have been overlooked during the review of this note. Sometimes these errors may affect the content or meaning of a given sentence. [id number] Biopsy
--- NOTE | 2024-11-12 13:59 | MHC.CM.PN ---
pt from [facility] where she is a bed hold dc plan return
[2024-11-12 15:28] VITALS: BP 138/62; PULSE 70; RESP 24; TEMP 36.9; O2SAT 99
[2024-11-12 15:36] VITALS: BMI 27.9
[2024-11-12 16:43] VITALS: BMI 27.9
[2024-11-12 16:55] LABS: Glucose, Whole Blood 100 mg/dL (60-115)
[2024-11-12 19:43] VITALS: BP 137/65; PULSE 78; RESP 22; TEMP 36; O2SAT 97
[2024-11-12 21:00] LABS: Glucose, Whole Blood 208 mg/dL (60-115)
[2024-11-13] MEDS: 0.9 % Sodium Chloride Flush 3 ML SYRINGE IVFLUSH ×2 (00:08→08:38)
[2024-11-13 03:13] VITALS: BP 136/65; PULSE 65; RESP 20; TEMP 36.3; O2SAT 98
[2024-11-13 07:17] VITALS: BP 135/62; PULSE 74; RESP 16; TEMP 36; O2SAT 99
[2024-11-13 07:47] LABS: Glucose, Whole Blood 149 mg/dL (60-115)
--- NOTE | 2024-11-13 10:25 | PM.PNCARD ---
Subjective Subjective Date of Service: 11/13/24 Interval history: Patient has abdominal pain but she does not have any chest pain or cardiac symptoms. Review of Systems Review of Systems Yes all other systems are reviewed and are negative Constitutional: Reports as per HPI and Reports no additional constitutional complaints Eyes: Reports as per HPI and Denies no additional eye complaints Denies system reviewed and no additional complaints, except as documented and Reports as per HPI Cardiovascular: Reports as per HPI, Reports no additional cardiovascular complaints, Denies acrocyanosis, Denies cool extremities, Denies chest pain, Denies leg edema, Denies lightheadedness, Denies palpitations and Denies dyspnea Respiratory: Reports as per HPI, Denies no additional respiratory complaints and Denies dyspnea Gastrointestinal: Reports as per HPI and Denies no additional gastrointestinal complaints Musculoskeletal: Reports no additional musculoskeletal complaints and Reports as per HPI Skin/Breast: Reports system reviewed and no additional complaints, except as docu Reports system reviewed and no additional complaints, except as documented and Reports as per HPI Psychiatric: Reports no additional psychiatric complaints and Reports as per HPI Endocrine: Reports no additional endocrine complaints, Reports as per HPI and Denies palpitations Hematologic/Lymphatic: Reports no additional hematologic/lymphatic complaints and Reports as per HPI Allergic/Immunologic: Reports no additional allergic/immunologic complaints and Reports as per HPI Physical Exam Vital Signs: Last Vital Signs Temp 96.8 F 11/13/24 07:17 Pulse 74 11/13/24 07:17 Resp 16 11/13/24 07:17 BP 135/62 11/13/24 07:17 Pulse Ox 99 11/13/24 07:17 O2 Del Method Nasal Cannula 11/13/24 07:17 O2 Flow Rate 2 11/13/24 07:17 BMI result Body Mass Index 27.9 Const General: comfortable and no acute distress Orientation/consciousness: patient oriented x3 HEENT Other: Unremarkable Head: Yes normal to inspection Neck Neck: Yes normal visual inspection Chest Chest palpation & inspection: normal inspection of the chest Resp Auscultation: clear to auscultation bilaterally Cardio Palpation: normal PMI Heart sounds: S1 normal heart sound present, S2 normal heart sound present, no gallops, no murmurs and no rubs GI Palpation (GI): Soft to palpation Back/Spine/Pelvis Other: unremarkable Skin General skin exam: no rashes or lesions noted Neuro General: patient oriented x3 Extrem General: Yes normal to inspection Psych Mental Status: mental status grossly normal Objective Labs and Meds 11/12/24 06:06 11/12/24 06:06 Lab results: Laboratory Results - last 24 hr 11/12/24 11/12/24 11/12/24 12:50 16:52 20:48 POC Glucose 142 H 100 208 H 11/13/24 07:15 POC Glucose 149 H Imaging Radiologist's impression: Impressions Pelvis Ultrasound 11/12/24 09:45 IMPRESSION: 3.7 x 2.5 x 3.8 cm echogenic mass in the uterus. Evaluation is limited by lack of an endovaginal scan. MINT WAFER DEPOSITOR consultation is recommended. Electronically signed by: Kaushik Ramirez MD 11/12/2024 10:35 AM EDT RP Progress Note: A&P Assessment and plan (1) Precordial chest pain: Status: Acute (2) Elevated troponin: Status: Acute (3) Cardiomyopathy: Status: Acute Plan Troponin levels are 34, 52 and 33. Coronary CTA 2023-mild stenosis in the mid LAD due to short segment of calcific plaque. Minimal stenosis due to calcific mixed plaques in the left main, proximal LAD, proximal circumflex, proximal RCA. In the echocardiogram from this admission, LVEF is 42%. Basal inferior/inferoseptal hypokinesis. This is different from the prior report but upon review of the prior images, not as good quality and suspect the LVEF was not normal in that study either. Even in even earlier study, LVEF was reported to be 45-50%. Overall, but chest pain itself seems nonspecific. Could be just noncardiac. Slight elevation in troponin is also not of any significance especially as there is no prior evidence of any obstructive disease. She might have some microvascular disease that could demand related troponin leak. The mild cardiomyopathy does not need any specific workup at this time but can be followed up as an outpatient rather. Continue workup for the uterine mass. Follow up in clinic. Time Spent With Patient Time: Total time managing care of this patient today ____ minutes. Progress Note: Quality Stroke Does the patient have a stroke diagnosis?: No Procedures Date of Service Date of Service: 11/13/24
--- NOTE | 2024-11-13 10:47 | P.DS_ITS ---
DS: Providers Provider Date of Service: 11/13/24 Date of admission: 11/11/24 17:17 Date of discharge: 11/13/24 Primary care physician: Shireen Krishnan MD Consults: 11/11/24 18:34 Consult to Cardiology Routine Consulting Provider[place] [facility] Reason for consultation: Epigastric pain, vomiting, elevated troponin Has provider been notified: No 11/12/24 12:50 Consult to Obstetrics / Gynecology Routine Consulting Provider: Melchor Nunn Reason for consultation: uteirne mass DS: Diagnosis Discharge Diagnosis (1) Precordial chest pain: Status: Acute (2) Acute UTI: Status: Acute (3) Endometrial mass: Status: Acute (4) Cardiomyopathy: Status: Acute DS: Summary Hospital Course Hospital Course: From the history and physical by the admitting hospitalist, Gerri Garibay MD 11/11/24: Shireen Tavarez i is a 63 years old woman with past medical history significant for alcoholic liver cirrhosis, HFrEF (45-50%) with moderate diastolic dysfunction, mild CAD, obstructive sleep apnea, 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 She also complained of bilateral lumbar pain. She denied diarrhea. She said that the last meal before the symptoms with soap that was brought by her family member. There is no fever or chills. She did not report any headache, palpitations, dizziness, chest pain or shortness on breath. According to ED patient was hospitalized at [facility] with Wernicke encephalopathy. In the ED, she was found to have normal vital signs. Blood workup showed no leukocytosis or lactic acidosis, hemoglobin is 11.9 which is at baseline and platelets are normal. There are no significant electrolyte imbalances. LFTs are normal except for elevated AST. Troponin is increasing from 34.6 to 52.5. Urinalysis consistent with urinary tract infection. Abdominal pelvis CT scan with IV contrast showed cirrhosis of the liver, splenomegaly and highly suggestive uterine mass. ECG showed normal sinus rhythm, heart rate is 81 beats per minute without ischemic changes. ED Tx: NS 1 L bolus, Zofran 8 mg IV total, Tylenol 1 g IV, morphine 4 mg IV, ceftriaxone 1 g IV 63yo F with EtOH cirrhosis, HFrEF/mod diastolic HF, mild CAD, CHERISE, asthma/COPD overlap on home O2, HTN, HLD, DM2; recent hospitalization at [facility] with Wernicke encephalopathy; sent in from [facility] due to N/V abd pain, found to have UTI. Hospital course by problem: UTI - treated with ceftriaxone with clinical improvement ; blood cultures negative; urine culture grew E. coli resistant to ampicillin, ciprofloxacin, and TMP-SMX. She was discharged on cefuroxime.. troponin leak, mild - Cardiology consulted: Troponin levels are 34, 52 and 33. Coronary CTA 2023-mild stenosis in the mid LAD due to short segment of calcific plaque. Minimal stenosis due to calcific mixed plaques in the left main, proximal LAD, proximal circumflex, proximal RCA. In the echocardiogram from this admission, LVEF is 42%. Basal inferior/inferoseptal hypokinesis. This is different from the prior report but upon review of the prior images, not as good quality and suspect the LVEF was not normal in that study either. Even in even earlier study, LVEF was reported to be 45-50%. Overall, but chest pain itself seems nonspecific. Could be just noncardiac. Slight elevation in troponin is also not of any significance especially as there is no prior evidence of any obstructive disease. She might have some microvascular disease that could demand related troponin leak. The mild cardiomyopathy does not need any specific workup at this time but can be followed up as an outpatient rather. uterine mass on CT + US - Roof Designer consulted; endometrial biopsy performed at bedside. Pt will follow up with Dr Nunn [place] [facility] for results and further workup. She was discharged back to [facility]. Time Attestation Discharge Coordination Time (in mins): 40 Quality: Safe Use of Opioids Does Pt have an Active Cancer Diagnosis on the Problem List?: No Quality: Stroke Does the patient have a stroke diagnosis?: No Physical Exam Vital Signs: Vital Signs: Last Vital Signs Temp 96.8 F 11/13/24 07:17 Pulse 74 11/13/24 07:17 Resp 16 11/13/24 07:17 BP 135/62 11/13/24 07:17 Pulse Ox 99 11/13/24 07:17 O2 Del Method Nasal Cannula 11/13/24 07:17 O2 Flow Rate 2 11/13/24 07:17 BMI result Body Mass Index 27.9 Gen: in no acute distress HEENT: sclera anicteric, moist mucus membranes Neck: supple Lungs: clear to auscultation bilaterally Heart: regular rate and rhythm, no murmurs Abd: soft, suprapubic tenderness, non-distended Ext: no edema Skin: warm/well-perfused Neuro: alert and oriented x3, no focal findings Psych: appropriate affect DS: Data Data Completed and Pending Completed studies during hospitalization [Text1]: Laboratory Results WBC 6.2 X10*3/uL (4.8-10.8) 11/12/24 06:06 RBC 3.58 X10*6/uL (4.20-5.50) L 11/12/24 06:06 Hgb 10.6 g/dl (12.0-16.0) L 11/12/24 06:06 Hct 31.5 % (37.0-47.0) L 11/12/24 06:06 MCV 88.0 fL (80.0-98.0) 11/12/24 06:06 MCH 29.6 pg (27.0-33.0) 11/12/24 06:06 MCHC 33.7 g/dl (31.0-35.0) 11/12/24 06:06 RDW 18.6 % (11.0-16.0) H 11/12/24 06:06 Plt Count 230 X10*3/uL (160-400) 11/12/24 06:06 MPV 9.9 fL (9.4-12.3) 11/12/24 06:06 Immature Gran % (Auto) 0.2 % (0.0-0.4) 11/12/24 06:06 Neut % (Auto) 68.0 % (45-73) 11/12/24 06:06 Lymph % (Auto) 22.5 % (20-40) 11/12/24 06:06 [place] % (Auto) 8.2 % (2-11) 11/12/24 06:06 Eos % (Auto) 0.8 % (0-4) 11/12/24 06:06 Baso % (Auto) 0.3 % (0-2) 11/12/24 06:06 Lymph # (Auto) 1.4 X10*3/uL (1.2-4.9) 11/12/24 06:06 [place] # (Auto) 0.5 X10*3/uL (0.1-1.2) 11/12/24 06:06 Eos # (Auto) 0.1 X10*3/uL (0.0-0.4) 11/12/24 06:06 Baso # (Auto) 0.0 X10*3/uL (0.0-0.2) 11/12/24 06:06 Abs Immat Gran (auto) 0.01 X10*3/uL (0.00-0.03) 11/12/24 06:06 Absolute Neuts (auto) 4.2 x10*3/uL (2.0-8.3) 11/12/24 06:06 Absolute Nucleated RBC 0.000 X10*3/uL (0.0-0.012) 11/12/24 06:06 Nucleated RBC % (auto) 0.0 /100WBC (0.0-0.2) 11/12/24 06:06 Hold Purple Top SEE NOTE 11/11/24 22:42 Sodium 140 mmol/L (135-145) 11/12/24 06:06 Potassium 3.3 mmol/L (3.3-5.1) 11/12/24 06:06 Chloride 106 mmol/L (96-108) 11/12/24 06:06 Carbon Dioxide 26 mmol/L (22-29) 11/12/24 06:06 Anion Gap 11 (12-20) L 11/12/24 06:06 BUN 6 mg/dL (9-16) L 11/12/24 06:06 Creatinine 0.64 mg/dL (0.5-1.4) 11/12/24 06:06 Estim Creat Clear Calc 80.3 11/12/24 06:06 Estimated GFR > 60 11/12/24 06:06 POC Glucose 149 mg/dL (60-115) H 11/13/24 07:15 Random Glucose 139 mg/dL (60-115) H 11/12/24 06:06 Lactic Acid 1.6 mmol/L (0.5-2.0) 11/11/24 15:41 Calcium 8.5 mg/dL (8.4-10.2) D 11/12/24 06:06 Magnesium 1.9 mg/dL (1.6-2.6) 11/12/24 06:06 Total Bilirubin 1.0 mg/dL (0.0-1.0) 11/11/24 13:13 Direct Bilirubin 0.5 mg/dL (0.0-0.5) 11/11/24 13:13 AST 39 U/L (5-31) H 11/11/24 13:13 ALT 29 U/L (0-31) 11/11/24 13:13 Alkaline Phosphatase 75 U/L (39-117) 11/11/24 13:13 Ammonia 21 umol/L (13-55) 11/11/24 17:22 Troponin I High Sens 32.9 ng/L (<3.5-17.0) H 11/11/24 22:42 Total Protein 7.8 g/dL (6.5-8.0) 11/11/24 13:13 Albumin 4.1 g/dL (3.5-5.0) 11/11/24 13:13 Lipase < 4 U/L (8-78) L 11/11/24 13:13 Hold Yellow Top See Note 11/11/24 22:42 Urine Color Yellow 11/11/24 13:13 Urine Appearance Turbid 11/11/24 13:13 Urine pH >= 9.0 (5.0-9.0) 11/11/24 13:13 Ur Specific [place] 1.015 (1.005-1.025) 11/11/24 13:13 Urine Protein 100 (2+) mg/dL (Neg-Trace) H 11/11/24 13:13 Urine Glucose (UA) 500 mg/dL (Negative) H 11/11/24 13:13 Urine Ketones 15 mg/dL (Negative) 11/11/24 13:13 Urine Blood Small (1+) (Negative) H 11/11/24 13:13 Urine Nitrite Positive (Negative) H 11/11/24 13:13 Ur Leukocyte Esterase Large (3+) (Negative) H 11/11/24 13:13 Urine RBC 3-5 /HPF (0-2) H 11/11/24 13:13 Urine WBC >50 /HPF (0-5) H 11/11/24 13:13 Ur Squamous Epith Cells 0-2 /HPF (0-2) 11/11/24 13:13 Urine Bacteria 4+ (None Seen) 11/11/24 13:13 Hyaline Casts 0-2 /LPF (0-2) 11/11/24 13:13 Influenza Type A (PCR) NEGATIVE (Negative) 11/11/24 13:12 Influenza Type B (PCR) NEGATIVE (Negative) 11/11/24 13:12 RSV RNA Qual (PCR) NEGATIVE (Negative) 11/11/24 13:12 SARS-CoV-2 RNA (RT-PCR) NEGATIVE (Negative) 11/11/24 13:12 Impressions Abdomen/Pelvis CT 11/11/24 13:21 IMPRESSION: 1. Heterogeneous material in the uterus, highly suggestive of a mass. Pelvic ultrasound is recommended. 2. Cirrhosis of the liver. 3. Splenomegaly. Multiple focal splenic hypodense lesions, of uncertain etiology. Electronically signed by: Kaushik Ramirez MD 11/11/2024 02:57 PM EDT RP Pelvis Ultrasound 11/12/24 09:45 IMPRESSION: 3.7 x 2.5 x 3.8 cm echogenic mass in the uterus. Evaluation is limited by lack of an endovaginal scan. ELECTRONIC TEST TECHNICIAN consultation is recommended. Electronically signed by: Kaushik Ramirez MD 11/12/2024 10:35 AM EDT RP Pending studies at discharge: Pending at discharge 11/12/24 15:12 Surgical Path [Surgical] [PTH] Routine Discharge Plan Discharge Anticipated Discharge Date/Time: 11/13/24 10:43 Patient Disposition: Xfer [facility] Discharge Diagnosis: urinary tract infection endometrial mass Referrals: Roxane Grier Foley [Outside] - 1 Week Referral Note: RESUMPTION OF CORRECTION CARE Shireen Stout MD [Primary Care Provider, Internal Medicine] - 1 Week Billy Mlacolm MD [Physician, Cardiology] - 1 Month Melchor Nunn MD [Physician, ELECTRICAL DISCHARGE MACHINE OPERATOR] - 2 Weeks Discharge Medications: New cefuroxime axetil 500 mg tablet 500 mg PO BID Qty: 10 0RF Continued (DME) blood-glucose meter [FreeStyle Fischer Lite] Kit See Rx Instructions .Route Qty: 1 0RF Rx Instructions: As directed atorvastatin 40 mg tablet 40 mg PO BEDTIME cetirizine 10 mg tablet 10 mg PO QAM naltrexone 50 mg tablet 50 mg PO QAM thiamine HCl (vitamin B1) 100 mg tablet 100 mg PO QAM fenofibrate micronized 134 mg capsule 134 mg PO QPM calcium carbonate 500 mg calcium (1,250 mg) tablet 500 mg PO BID gabapentin 300 mg capsule 300 mg PO BID folic acid 1 mg tablet 1 mg PO DAILY ergocalciferol (vitamin D2) 1,250 mcg (50,000 unit) capsule 1,250 mcg PO Q7D albuterol sulfate [Ventolin HFA] 90 mcg/actuation HFA aerosol inhaler 2 puff inhalation Q6H PRN (Reason: Shortness Of Breath) insulin lispro 100 unit/mL insulin pen subcut insulin glargine [Lantus Solostar U-100 Insulin] 100 unit/mL (3 mL) insulin pen subcut Linzess 72 mcg capsule 72 mcg PO QAM (DME) lancets [FreeStyle Lancets] 28 gauge misc See Rx Instructions .ROUTE .MEDSUPPLY Qty: 100 Rx Instructions: As directed sertraline [Zoloft] 50 mg tablet 50 mg PO DAILY trazodone 100 mg tablet 200 mg PO BEDTIME PRN (Reason: Insomnia) (DME) FreeStyle Test Strip See Rx Instructions .ROUTE .MEDSUPPLY Qty: 150 6RF Rx Instructions: 4 times a day (DME) lancets [TRUEplus Lancets] 33 gauge misc See Rx Instructions .ROUTE BID Qty: 100 Rx Instructions: As directed pantoprazole 20 mg tablet,delayed release (DR/EC) 20 mg PO BID (DME) FreeStyle Lakeisha 2 Sensor Kit See Rx Instructions .Route Rx Instructions: every 14 days (DME) FreeStyle Lakeisha 2 [place] Misc See Rx Instructions .Route Rx Instructions: As directed losartan 25 mg tablet 25 mg PO QAM (DME) blood pressure test kit-large Kit See Rx Instructions .ROUTE DIRECTED Qty: 1 Rx Instructions: As directed (DME) pen needle, diabetic [BD Ultra-Fine Debbie Pen Needle] 32 gauge x 5/32 needle See Rx Instructions .ROUTE BID Qty: 50 Rx Instructions: As directed once a day Myrbetriq 25 mg tablet extended release 24 hr 25 mg PO QAM (DME) Oxygen Home Use Kit See Rx Instructions .Route Rx Instructions: As directed (DME) nebulizers Misc See Rx Instructions .Route Rx Instructions: As directed Humulin R U-500 (Conc) Kwikpen 500 unit/mL (3 mL) insulin pen See Rx Instructions subcut .Twice a day 30 Days Qty: 6 6RF Rx Instructions: 250 units before breakfast ; ferrous sulfate [FeroSul] 325 mg (65 mg iron) tablet 325 mg PO MOWEFR Discharge Orders: Discharge Order (Routine); Ordered 11/13/24 Ordered By: Dylan Adams Diet: Diabetic diet Activity on Discharge: As tolerated Stand Alone Forms: Patient Portal Discharge page Print Language: Maltese Care Plan Goals: cure infection workup endometrial mass Health Concerns: urinary tract infection endometrial mass Plan of Treatment: return to [facility] for short-term rehabilitation take cefuroxime 500 mg twice daily for 5 days follow up [address] N[place] [facility] [place] [facility] for results of endometrial biopsy and further workup follow up with Cardiology in 4 weeks for care of cardiomyopathy Please follow up with your primary care doctor within 1 week of discharge from rehabilitation. Return to the hospital if you experience recurrent or worsening symptoms. Assessment: See Discharge Summary.
[2024-11-13 11:17] LABS: Glucose, Whole Blood 290 mg/dL (60-115)
--- NOTE | 2024-11-13 11:22 | MHC.CM.PN ---
DP: PT HAS BEEN MEDICALLY CLEARED FOR DC BACK TO [facility]. CENTER UPDATED. BLS TRANSPORT BOOKED FOR 1 PM VIA [facility]. RN NOTIFIED. NOTIFIED OF DC.
[2024-11-13 13:23] VITALS: BP 150/65; PULSE 75; RESP 17; TEMP 36.6; O2SAT 98
== END 2024-11-13 13:42 | disposition skilled nursing facility (03) | DRG 988 ==
LOC: HO.ED 15:14 → HO.EDOVER 17:34 → HO.S3 11-12 13:45
PROVIDERS: Physician Assistant Medical; Admitting Provider Internal Medicine; Emergency Provider Emergency Medicine; PCP Student in an Organized Health Care Education/Training Program; Visit Provider Family Medicine
DX: N39.0 Urinary tract infection, site not specified (principal); E51.2 Wernicke's encephalopathy; I50.22 Chronic systolic (congestive) heart failure; I42.9 Cardiomyopathy, unspecified; Z16.11 Resistance to penicillins; Z16.24 Resistance to multiple antibiotics; I25.10 Atherosclerotic heart disease of native coronary artery without angina pectoris; K70.30 Alcoholic cirrhosis of liver without ascites; I11.0 Hypertensive heart disease with heart failure; G47.33 Obstructive sleep apnea (adult) (pediatric); F32.A Depression, unspecified; N85.9 Noninflammatory disorder of uterus, unspecified; K29.00 Acute gastritis without bleeding; J44.9 Chronic obstructive pulmonary disease, unspecified; F10.11 Alcohol abuse, in remission; Z20.822 Contact with and (suspected) exposure to COVID-19; Z99.81 Dependence on supplemental oxygen; Z87.891 Personal history of nicotine dependence; Z79.4 Long term (current) use of insulin; Z79.899 Other long term (current) drug therapy; B96.20 Unspecified Escherichia coli [E. coli] as the cause of diseases classified elsewhere
CPT/HCPCS: 36415; 58100; 74177; 76856; 80048; 80076; 81001; 82140; 82947; 83605; 83690; 83735; 84484; 85025; 87040; 87086; 87088; 87147; 87186; 87637; 88305; 93005; 93306; 99285; J0131; J0696; J0737; J1171; J2270; J2405; J2470; J3411; J7120; Q9957; Q9967

== ENCOUNTER → 2024-11-11 12:29 | Outpatient (BNV) | payer OTHER, SELFPAY | PROVIDERS: Admitting Provider Internal Medicine; Emergency Provider Emergency Medicine; PCP Student in an Organized Health Care Education/Training Program; Visit Provider Internal Medicine | DX: R94.31 Abnormal electrocardiogram [ECG] [EKG] (principal); R79.89 Other specified abnormal findings of blood chemistry | CPT/HCPCS: 93010 ==

== ENCOUNTER → 2024-11-11 12:54 | Outpatient (BNV) | payer OTHER, SELFPAY | PROVIDERS: Emergency Provider Emergency Medicine; PCP Student in an Organized Health Care Education/Training Program; Visit Provider Radiology Diagnostic Radiology | DX: K70.30 Alcoholic cirrhosis of liver without ascites (principal) | CPT/HCPCS: 74177 ==

== ENCOUNTER 2024-11-11 17:17 | Outpatient (BNV) | payer OTHER, SELFPAY | END 2024-11-12 12:00 | PROVIDERS: Admitting Provider Internal Medicine; Emergency Provider Emergency Medicine; PCP Student in an Organized Health Care Education/Training Program; Visit Provider Internal Medicine | DX: I51.89 Other ill-defined heart diseases (principal) | CPT/HCPCS: 93306 ==

== ENCOUNTER → 2024-11-11 17:17 | Outpatient (BNV) | payer OTHER, SELFPAY | PROVIDERS: Admitting Provider Internal Medicine; Emergency Provider Emergency Medicine; PCP Student in an Organized Health Care Education/Training Program; Visit Provider Obstetrics & Gynecology | DX: N94.89 Other specified conditions associated with female genital organs and menstrual cycle (principal) | CPT/HCPCS: 58100; 99222 ==

== ENCOUNTER → 2024-11-11 17:17 | Outpatient (BNV) | payer OTHER, SELFPAY | PROVIDERS: Admitting Provider Internal Medicine; Emergency Provider Emergency Medicine; PCP Student in an Organized Health Care Education/Training Program; Visit Provider Internal Medicine | DX: R07.2 Precordial pain (principal); R79.89 Other specified abnormal findings of blood chemistry; I42.9 Cardiomyopathy, unspecified | CPT/HCPCS: 99232 ==

== ENCOUNTER → 2024-11-11 17:17 | Outpatient (BNV) | payer OTHER, SELFPAY | PROVIDERS: Admitting Provider Internal Medicine; Emergency Provider Emergency Medicine; PCP Student in an Organized Health Care Education/Training Program; Visit Provider Internal Medicine | DX: N39.0 Urinary tract infection, site not specified (principal) | CPT/HCPCS: 99223; 99232; 99239 ==

== ENCOUNTER 2024-11-26 13:13 | Outpatient (AMB) | payer OTHER, SELFPAY ==
--- NOTE | 2024-11-26 13:13 | MHC.OFFVIS ---
Intake Visit Reasons: EMB results Allergies cornflower (Cornflower) Allergy (Unknown, Verified 11/11/24 12:35) ITCHY EYES/HIVES peach (PEACH) Allergy (Unknown, Verified 11/11/24 12:35) NATURAL FRUIT - MOUTH ITCHES cornell (cherries) Allergy (Verified 11/11/24 12:35) Unknown No Known Drug Allergies Allergy (Verified 11/11/24 12:35) none apples Allergy (Unknown, Uncoded 11/11/24 12:35) Unknown peanut Allergy (Unknown, Uncoded 11/11/24 12:35) Unknown HPI Comments Details: The patient scheduled a Telehealth Visit after endometrial biopsy. The patient has no complaints, no vaginal bleeding, no feverishness chills or abdominal pain. The endometrial biopsy pathology report showed the following: Endometrium, biopsy: Superficial strips of benign atrophic endometrium, and benign endocervical glandular and squamous epithelium; no atypia or carcinoma 11/12/24 Pelvic ultrasound revealed the following: Uterus: The uterus is normal in size, measuring 7.7 x 3.5 x 5.7 cm. Myometrium has a normal echotexture. No fibroids are identified. Endometrium: There is an echogenic mass within the uterus measuring 3.7 x 2.5 x 3.8 cm. Right ovary: The right ovary measures 1.4 x 0.9 x 1.4 cm. The right ovary is normal in size and echotexture. Left ovary: The left ovary is not identified. Pelvic fluid: none. US/US pelvic complete IMPRESSION: 3.7 x 2.5 x 3.8 cm echogenic mass in the uterus. Evaluation is limited by lack of an endovaginal scan. SLIP COVER SEWER consultation is recommended. [facility] Medical History Elevated troponin Cardiomyopathy CAD (coronary artery disease) Dyspnea Asthma-COPD overlap syndrome Alcohol use History of methadone use Personal history of nicotine dependence Asthma Obesity (BMI 30-39.9) GERD (gastroesophageal reflux disease) Cirrhosis Vitamin D deficiency Hypertension Dyslipidemia Non-toxic multinodular goiter Osteoporosis Diabetic 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 with type 2 diabetes mellitus intermediate frame tender (current) use of insulin Diabetes type 2, uncontrolled Surgical History Status post biopsy of thyroid gland History of colonoscopy (~2016) Hx of cataract extraction History of esophagogastroduodenoscopy (EGD) (~2020) Hx of cardiac cath (~12/2015) Hx of cholecystectomy (~1980) History of bladder surgery (~06/2019) Family History Father Esophageal cancer Mother Diabetes mellitus HTN (hypertension) Social History Household Members: Spouse Housing: Apartment Do you presently have visiting nurse or other home services: No Alcohol intake: current Alcohol intake frequency: 3 or more drinks per day Alcohol type: beer Patient Tobacco Use Status: Former Tobacco user Tobacco use type: Cigarette Years Smoked: Onset 27, 2ppd x 24yrs, 48pyh, quit 11/2012 Advance Directives Date on File: 02/28/21 service: No Review of Systems Const All systems reviewed & are unremarkable except as noted in HPI and below Reports as per HPI and Reports no additional complaints GI Reports no additional complaints Reports no additional complaints Telehealth Telehealth Telehealth Platform: Telephone Location of provider rendering services: practice address Location of patient: address on file Patient Identification confirmed using: Name, : Yes Telehealth method: voice only Patient verbally consented to treatment: Yes Patient verbally consented to billing insurance company: Yes Patient informed of any privacy concerns related to visit: Yes Minutes spent on Phone/Video with Pt.: 6 Assessment & Plan Assessment & Plan (1) Endometrial mass: Code(s): N94.89 - Other specified conditions associated with female genital organs and menstrual cycle Category: Medical Plan: Discussed with the patient the results of the endometrial biopsy. Discussed with the patient the sensitivity, specificity, positive and negative predictive value, of endometrial biopsy in detecting endometrial pathology including but not limited to endometrial hyperplasia, cancer and other pathology; explained to the patient the endometrial mass is not explained by the normal endometrial biopsy recommended repeatc pelvic ultrasound with endovaginal probe since it was not done previously in an effort to identify the endovaginal mass with more accuracy. Order placed. Instructions given to patient to schedule a follow-up appointment within 2 weeks I spent a total of 20 minutes reviewing the chart, talking to the patient via video and documenting in the medical record. Orders: Orders US pelvic and transvaginal Today N94.89 - Other specified conditions associated with female genital organs and menstrual cycle Coding Level of Care Code Tele Est Pt Level 3 (61345) Diagnoses Endometrial mass N94.89
--- OUTSIDE RECORDS SUMMARY | 2024-11-26 14:04 | XMS_ITS | Encounter Summary ---
Author Organization [facility] Address [address] [facility] [address] [place] [address] Care Team Providers Care Refinery Operator Light Ends Recovery Name Role Phone Shireen Stout MD Primary Care Pro vider Reason for Visit * Reason Comments Med Refill Encounter Details Date Type Department Care Team (Late st Contact Info) Description 08/04/2024 Refill [facility] [address] [place], [place] [phone] Shireen Stout MD [address] [place], [place] [phone] Social History Tobacco Use Types Packs/Day Years [...] Care Team (Late st Contact Info) Description 12/05/2024 1:00 PM EDT Office Visit [facility] [address] [place] [phone] Terrence Avila MD [address] [place] [phone] documented as of this encounter Visit Diagnoses Not on filedocumented in this encounter Additional Health Concerns Assessment Noted Time PHQ-9 Depression Total Score: 3 03/05/20 24 9:07 AM EST documented as of this encounter Care Teams Refinery Operator Light Ends Recovery Relationship Specialty Start Date End Date Shireen Stout MD [address] [place] [phone] PCP - General Internal Medicine 09/08/22 [employer] 09/22/24 documented as of this encounter
--- OUTSIDE RECORDS SUMMARY | 2024-11-26 14:05 | XMS_ITS | Patient Health Record ---
Author Organization [facility] Address [address] [place] [address] Care Team Providers Care Bender Helper Name Role Phone Víctor Euceda Jr Reason For Referral No Information Plan Of Treatment No Information
--- OUTSIDE RECORDS SUMMARY | 2024-11-26 14:05 | XMS_ITS | Continuity of Care Document ---
Author Name Tristian Weston Address [address] [place] [id number] Organization Unknown Address [address] [place] [address] Medications No known medications Problems No known problems
--- OUTSIDE RECORDS SUMMARY | 2024-11-26 14:05 | XMS_ITS | Clinical Summary ---
Author Organization [address] [facility] Address [address] [place] [address] Phone Care Team Providers Care Commercial Banker Name Role Phone Pranav Stout MD Primary Care Pro vider Allergies Active Allergy Reactions Criticality Noted Date Comments Jimmy Inhibitors 11/02/2023 Apple 11/02/2023 Romero 11/02/2023 Sonoma (Prunus Persica) 11/02/2023 Peanut 11/02/2023 Medications albuterol [...] AM EDT Office Visit Orthopedic Surgery - [address] [phone] Herson Fitzgerald, DPM Arthritis of both ankles (Primary Dx); Diabetic mononeuropathy simplex ([facility] V24, [facility] V28); Dermatophytosis of nail; Pain in toe of right foot; Pain in toe of left foot; Metatarsalgia of both feet; Type II diabetes mellitus with peripheral circulatory disorder ([facility] V24, [facility] V28) from Last 3 Months Immunizations Name Administration Dates Next Due COVID-19 (Moderna/Spikevax) 12yo and older 10/25 Medical History Medical History Date Comments DM (diabetes mellitus), type 2 (CMS/[facility] V24, [facility] V28) DX:DM (diabetes mellitus), t ype 2 (HCC) Alcoholic cirrhosis (CMS/HCC V24, CMS/[facility] V28) DX:Alcoholic cirrhosis (HCC) Other seasonal allergic rhinitis DX:Other seasonal allergic rhinitis Constipation DX:Constipation HTN (hypertension) DX:HTN (hyper tension) Pulmonary emphysema ([facility] V24, [facility] V28) DX:Pulmonary emphysema (HCC) Stage 2 chronic [...] AM EDT Office Visit Orthopedic Surgery - [place] [address] [phone] Herson Fitzgerald DPM [address] [phone] Health Maintenance Due Date Last Done Comments [...] topic Insurance MEDICA[place] - [place] Care Teams Commercial Banker Relationship Specialty Start Date End Date Pranav Stout MD [address] [facility] 9 [place] [address] PCP - General 08/16/23
== END 2024-11-26 13:41 | disposition home or self-care (01) ==
LOC: HO.HWS 13:13
PROVIDERS: PCP Student in an Organized Health Care Education/Training Program; Visit Provider Obstetrics & Gynecology
DX: N94.89 Other specified conditions associated with female genital organs and menstrual cycle (principal)
CPT/HCPCS: 99213

== ENCOUNTER 2024-12-11 10:31 | Outpatient (REF) | payer OTHER, SELFPAY ==
--- OUTSIDE RECORDS SUMMARY | 2024-12-11 09:30 | XMS_ITS | Encounter Summary ---
Author Organization [employer] Address [address] [place] [address] 7t [place] [address] Care Team Providers Care Control Room Technician Name Role Phone Shireen Stout MD Primary Care Pro vider Encounter Details Date Type Department Care Team (Late st Contact Info) Description 12/11/2024 9:30 AM EDT Office Visit [facility] [address] [place], [place] [phone] Lisa Mccurdy MD [address] [place], [place] [phone] Essential hypertension (Primary Dx); Alcoholic cirrhosis, unspecified [...] your housing situation today? I have maureen mdoi 01/23/[address] you li [...] 9:42 AM EDT documented in this encounter Miscellaneous Notes * Assessment & Plan Note - Lisa Mccurdy MD - 12/10/2024 4:58 PM EDTAssociated Problem(s): Diabetic peripheral neuropathy associated with type 2 diabetes mellitus ([facility]) Pt w DM2 -insulin dependent w neuropathy Pt is on rapid insulin 220 u in am only and invokana 10/2022 hb1AC is 7.9<---8.9-elevated Gl at 259 .microalb neg , LDL 66 -unsure why pt is not on basal insulin? --I called to her manager heavy duty-Dr Diamond at # [phone] previous visit to discuss case. I left [...] -pt has f up apt w manager heavy duty tomorrow and advised to discuss about basal insulin ? - disciplinary hearing officer 11/2022 mild non proliferative diabetic retinopathy to f in 6 mo -referred to senior recruiter today * Assessment & Plan Note - [...] 466, HR 74x' 10/2022 Microalb neg - disciplinary hearing officer 11/2022 Mild non proliferative diabetic retinopathy to f up in 6 mo -continue BP meds documented in this encounter Plan of Treatment Scheduled Orders Name Type Priority Associated Diagnoses Orde r Schedule Basic Metabolic Panel Lab Routine Essential hypertension Expected: 12/11/2024 (Approximate), Expires: 12/11/2025 TSH with Reflex to Free T4 Lab Routine Leg swelling Expected: 12/11/2024 (Approximate), Expires: 12/11/2025 CBC auto differential Lab Routine Alcoholic cirrhosis, unspecified whether ascites present ([facility]CC) Expected: 12/11/2024 (Approximate), Expires: 12/11/2025 Vitamin D, 25-Hydroxy, Total, Immunoassay Lab Routine Vitamin D deficiency Expected: 12/11/2024 (Approximate), Expires: 12/11/2025 NT-proBNP Lab Routine Leg swelling Expected: 12/11/2024 (Approximate), Expires: 12/11/2025 documented as of this encounter Procedures Procedure Name Priority Date/Time Associated Diagnosis Comments POCT GLYCATED HEMOGLOBIN, TOTAL Routine 12/11/2024 9:46 AM EDT Diabetes mellitus type 2, insulin dependent ([facility]) POCT GLUCOSE Routine 12/11/2024 9:44 AM EDT Diabetes mellitus type 2, insulin dependent ([facility]) documented in this encounter Results * POCT Hgb A1c (12/11/2024 9:46 AM [...] Media Lot # [id number] Lot# Expiration Date 22,726 Blood Capillary blood specimen / Unknown 12/11/2024 9:44 AM EDT Lisa Mccurdy MD POINT OF CARE TEST ENTER/EDIT OR DERABLES Final Result documented in this encounter Visit Diagnoses Diagnosis Essential hypertension- Primary Unspecified essential hypertension Alcoholic cirrhosis, unspecified whether ascites present ([facility]) Alcohol use disorder, severe, dependence ([facility]/HCC) Pulmonary emphysema, unspecified emphysema type ([facility]) Diabetic peripheral neuropathy associated with type 2 diabetes mellitus ([facility]) Moderate recurrent major depression ([facility]) Major depressive disorder, recurrent episode, moderate OAB (overactive bladder) Diabetes mellitus type 2, insulin dependent ([facility]) Leg swelling Swelling of limb Vitamin D deficiency Depressive disorder Depressive disorder, not elsewhere classified documented in this encounter Additional Health Concerns Assessment Noted Time PHQ-9 Depression Total Score: 11 025 9:44 AM EDT documented as of this encounter Care Teams Control Room Technician Relationship Specialty Start Date End Date Shireen Stout MD [address] [place] [phone] PCP - General Internal Medicine 09/08/22 [facility] 09/22/24 documented as of this encounter
--- OUTSIDE RECORDS SUMMARY | 2024-12-11 11:54 | XMS_ITS | Patient Health Record ---
Author Organization [facility] Address [address] [place] [address] Care Team Providers Care Rehabilitation Nurse Name Role Phone Víctor Euceda Jr Reason For Referral No Information Plan Of Treatment No Information
--- OUTSIDE RECORDS SUMMARY | 2024-12-11 11:54 | XMS_ITS | Encounter Summary ---
Author Organization Replaced By [facility] Address [address] [facility] [address] [place] [address] Encounters * CPT with [facility] at [place] on 2024-12-04 [facility] notified that Pt has been having frequency, bladder and low back pain with urination, bad odor.Pt was just in hospital with AUD and is having confusion which may also be caused by UTI. { reasonForRequest : urinary symptoms , patientReports : ,& quot;denies :[], chiefComplaints : Urinary Symptoms , pmh : Asthma, Chronic Kidney Disease, Cirrhosis, Diabetes Mellitus Type 2, Food Allergies, Hypertension, Allergic Rhinitis, Cigarette Smoker, COPD/Asthma, Depression, Emphysema, Anemia, Obesity, Osteoporosis, Other , allergies : LISA Inhibitors, Romero, Peanut , otherAllergies : \nprunus persica , painAssessment : , visitOutcome : , additionalComments : HPI reviewed. \n0827 @ 2010- Unable to reach patient by phone. Per visit request, patient's would prefer visit for tomorrow, 12/04, if visit could not occur before 7pm today. Visit to be rescheduled for tomorrow 12/04 per spouse request from initial triage -Maureen Ramirez RN } Patient alert and oriented complains of frequent burning urination with inability to empty and increase pressure time weeks. Patient reports she was treated for same in the SNF. She was released fromthe SNF 5 days ago. Was inpatient times two months after trauma. Patient denies fever, chills, nausea, vomiting, diarrhea, or any other pain or complaints. Patient denies abdominal pain. Patient reports CVA tenderness on left. Patient pink warm dry secondary exam unremarkable. Lung sounds clear negative increase work of breathing positive full sentences abdomen and soft nontender extremities unremarkable. No edema noted. Positive CVA tenderness left side. Levofloxacin administered as ordered without complication, using five rights., c will prescribe more to patient???s local pharmacy. Patient reports she has PCP appointment tomorrow. Red flags patient education discussed. Patient and caregiver demonstrating understanding of care and plan. Patient given an opportunity to ask questions. ORAL_MEDICATION, EKG, POC_BLOODWORK, GLUCOSE Written by [facility] on 2024-12-04
--- OUTSIDE RECORDS SUMMARY | 2024-12-11 11:54 | XMS_ITS | Encounter Summary ---
Author Organization [employer] Address [address] [facility] 7t [place] [address] Care Team Providers Care Measurement And Verification Engineer Name Role Phone Shireen Stout MD Primary Care Pro vider Encounter Details Date Type Department Care Team (Late st Contact Info) Description 11/12/2024 Results Follow-Up [facility] [address] [place] [address] Shireen Stout MD [address] [place] [address] [facility] complete Social History Tobacco Use Types Packs/Day Years [...] as of this encounter Miscellaneous Notes * Result Encounter Note - Shireen Krishnan MD - 11/12/2024 1:17 PM EDT Labs done by outside provider documented in this encounter Plan of Treatment Not on file documented as of this encounter Visit Diagnoses Not on filedocumented in this encounter Additional Health Concerns Assessment Noted Time PHQ-9 Depression Total Score: 11 025 9:44 AM EDT documented as of this encounter Care Teams Measurement And Verification Engineer Relationship Specialty Start Date End Date Shireen Stout MD [address] [place] [phone] PCP - General Internal Medicine 09/08/22 [facility] 09/22/24 documented as of this encounter
--- OUTSIDE RECORDS SUMMARY | 2024-12-11 11:54 | XMS_ITS | Encounter Summary ---
Author Organization [employer] Address [address] [facility] 7t [place] [address] Care Team Providers Care Rug Weaver Name Role Phone Shireen Stout MD Primary Care Pro vider Reason for Visit * Reason Comments Med Refill Encounter Details Date Type Department Care Team (Late st Contact Info) Description 01/16/2023 Refill [facility] [address] [place] [address] Tonja Guzmán FNP Social History Tobacco Use Types Packs/Day Years [...] as of this encounter Plan of Treatment Not on file documented as of this encounter Visit Diagnoses Not on filedocumented in this encounter Additional Health Concerns Assessment Noted Time PHQ-9 Depression Total Score: 5 12/16/19 23 2:02 PM EDT documented as of this encounter Care Teams Rug Weaver Relationship Specialty Start Date End Date Shireen Stout MD [address] [place] [id number] PCP - General Internal Medicine 09/08/22 [facility] 09/22/24 documented as of this encounter
--- OUTSIDE RECORDS SUMMARY | 2024-12-11 11:54 | XMS_ITS | Clinical Summary ---
Author Organization [facility] Address [address] [place] [address] Phone Care Team Providers Care Diploma Dental Assistant Name Role Phone Pranav Stout MD Primary Care Pro vider Allergies Active Allergy Reactions Criticality Noted Date Comments Jimmy Inhibitors 11/02/2023 Apple 11/02/2023 Romero 11/02/2023 [place] (Prunus Persica) 11/02/2023 Peanut 11/02/2023 Medications albuterol [...] AM EDT Office Visit Orthopedic Surgery - [address] [phone] Herson Fitzgerald, DPM Arthritis of both ankles (Primary Dx); Diabetic mononeuropathy simplex ([facility] V24, [facility] V28); Dermatophytosis of nail; Pain in toe of right foot; Pain in toe of left foot; Metatarsalgia of both feet; Type II diabetes mellitus with peripheral circulatory disorder ([facility] V24, [facility] V28) from Last 3 Months Immunizations Name Administration Dates Next Due COVID-19 (Moderna/Spikevax) 12yo and older 10/25 Medical History Medical History Date Comments DM (diabetes mellitus), type 2 ([facility] V24, [facility] V28) DX:DM (diabetes mellitus), t ype 2 (HCC) Alcoholic cirrhosis (CMS/HCC V24, [facility] V28) DX:Alcoholic cirrhosis (HCC) Other seasonal allergic rhinitis DX:Other seasonal allergic rhinitis Constipation DX:Constipation HTN (hypertension) DX:HTN (hyper tension) Pulmonary emphysema ([facility] V24, [facility] V28) DX:Pulmonary emphysema (HCC) Stage 2 chronic [...] AM EDT Office Visit Orthopedic Surgery - [place] [address] [phone] Herson Fitzgerald DPM [address] [phone] Health Maintenance Due Date Last Done Comments [...] 06/18/2024 COVID-19 Vaccine (7 - Moderna risk 2023- season) 2024 03/05/2024, 06/07/2023, 10/25/2022, Additional history exists Influenza Vaccine (#1) 2024 , 01/23/2023, 01/26/2021, Additional history exists Diabetes: Blood Sugar Control Test (HGBA1C) 02/21/2025 08/21/2024, 03/05/2024 Cholesterol Screening (Lipid Panel) 02/27/2029 02/28/2024 DTaP,Tdap,and [...] topic Insurance MEDICAID - [place] Care Teams Diploma Dental Assistant Relationship Specialty Start Date End Date Pranav Stout MD [address] [facility] 9 [place] [phone] PCP - General 08/16/23
--- OUTSIDE RECORDS SUMMARY | 2024-12-11 11:54 | XMS_ITS | Encounter Summary ---
Author Organization [employer] Address [address] [place] [address] 7t [place] [address] Care Team Providers Care Ict Sales Representative Name Role Phone Ramirez Tonja Reid INSPECTOR OUTSIDE STEAM DISTRIBUTION Primary Care Provider Shireen Acuña MD Primary Care Pro vider Encounter Details Date Type Department Care Team (Late st Contact Info) Description 06/27/2022 Abstract [facility] [address] [place] [address] Provider, MD Ja Social History Tobacco Use [...] Hemoglobin A1C 8.9(A) 4.0 - 6.0 % Comment:[facility] 04/20/2022 3:08 PM EST Narrative Eilza Salgado - 04/20/2022 3:08 PM EST A1c performed at [facility] us Historical Provider POINT OF CARE TEST ENTER/ EDIT ORDERABLES Final Result documented in this encounter Visit Diagnoses Not on filedocumented in this encounter Care Teams Ict Sales Representative Relationship Specialty Start Date End Date Tonja Guzmán FNP PCP - General Family Medicine 12/04/21 09/07/22 Shireen Stout MD [address] [place] [phone] PCP - General Internal Medicine 09/08/22 [facility] 09/22/24 documented as of this encounter
--- OUTSIDE RECORDS SUMMARY | 2024-12-11 11:54 | XMS_ITS | Encounter Summary ---
Author Organization [employer] Address [address] [facility] 7t [place] [address] Care Team Providers Care Zig Zag Stitcher Name Role Phone Shireen Stout MD Primary Care Pro vider Reason for Visit * Reason Comments Med Refill Encounter Details Date Type Department Care Team (Late st Contact Info) Description 01/16/2023 Refill [facility] [address] [place], [place] [phone] Shireen Stout MD [address] [place] [address] Social History Tobacco Use Types Packs/Day Years [...] documented as of this encounter Care Teams Zig Zag Stitcher Relationship Specialty Start Date End Date Shireen Stout MD [address] [place] [phone] PCP - General Internal Medicine 09/08/22 [facility] 09/22/24 documented as of this encounter
--- OUTSIDE RECORDS SUMMARY | 2024-12-11 11:54 | XMS_ITS | Encounter Summary ---
Author Organization [employer] Address [address] [facility] 7t [place] [address] Care Team Providers Care Med Specialist Name Role Phone Shireen Stout MD Primary Care Pro vider Reason for Visit * Reason Comments Med Refill Encounter Details Date Type Department Care Team (Late st Contact Info) Description 10/17/2023 Refill [facility] [address] [place], [place] [phone] Bruna Yusuf FNP [address] [place] [address] Social History Tobacco Use Types Packs/Day Years [...] documented as of this encounter Care Teams Med Specialist Relationship Specialty Start Date End Date Shireen Stout MD [address] [place] [phone] PCP - General Internal Medicine 09/08/22 [facility] 09/22/24 documented as of this encounter
--- OUTSIDE RECORDS SUMMARY | 2024-12-11 11:54 | XMS_ITS | Encounter Summary ---
Author Organization [employer] Address [address] [facility] 7t [place] [address] Care Team Providers Care Electric Lift Truck Driver Name Role Phone Shireen Stout MD Primary Care Pro vider Reason for Visit * Reason Comments Med Refill Encounter Details Date Type Department Care Team ([facility] st Contact Info) Description 04/05/2023 Refill [facility] [address] [place], [place] [phone] Enedelia Coley MD [address] [place], [place] [phone] Social History Tobacco Use Types Packs/Day Years [...] documented as of this encounter Care Teams Electric Lift Truck Driver Relationship Specialty Start Date End Date Shireen Stout MD [address] [place] [phone] PCP - General Internal Medicine 09/08/22 [facility] 09/22/24 documented as of this encounter
--- OUTSIDE RECORDS SUMMARY | 2024-12-11 11:54 | XMS_ITS | Encounter Summary ---
Author Organization [employer] Address [address] [facility] 7t [place] [address] Care Team Providers Care Microbiological Lab Technician Name Role Phone Shireen Stout MD Primary Care Pro vider Reason for Visit * Reason Comments Med Refill Encounter Details Date Type Department Care Team (Late st Contact Info) Description 08/04/2024 Refill [facility] [address] [place], [place] [phone] Shireen Stout MD [address] [place], [place] [phone] Social History Tobacco Use Types Packs/Day Years [...] documented as of this encounter Care Teams Microbiological Lab Technician Relationship Specialty Start Date End Date Shireen Stout MD [address] [place] [phone] PCP - General Internal Medicine 09/08/22 [facility] 09/22/24 documented as of this encounter
--- OUTSIDE RECORDS SUMMARY | 2024-12-11 11:54 | XMS_ITS | Clinical Summary ---
Author Organization [employer] Address [address] [place] [address] [address] [place] [address] Care Team Providers Care Maintenance Representative Name Role Phone Shireen Stout MD Primary [...] represent a complete record from that organization. glucose blood (FREESTYLE LITE) test strip Check by fingerstick route 1-2 times daily Active ketotifen (Zaditor) 0.025 % ophthalmic solution Instill 1 drop in each eye twice daily Active TRUEplus Lancets 33G misc Test blood sugar twice daily as directed Active docusate sodium (Colace) 100 MG capsule Take 100 mg by mouth if needed in the morning and at bedtime for constipation. Active Myrbetriq 25 MG 24 hr tablet [...] (twelve) hours. 140 g 11 023 Active Diclofenac Sodium 1 % gel Apply 1 Application topically if needed each day (pain in legs). 50 g 024 Active thiamine (Vitamin B-1) 100 MG tablet [...] AND SUNDAY 13 tablet 5 025 Active Aspirin EC Adult Low Dose [...] Refills, Soft Stop, 06/18/24 12:20:00 PM EDT, [facility], Partial fill upon patient request if the prescription is for a schedule II opioid drug., 156, cm, 06/18/24 9:02:00 EDT, Height 025 Active albuterol 108 (90 Base) MCG/ACT inhalerIndicatio [...] breakfast. Do not crush or chew. Active losartan (Cozaar) 25 MG tablet TAKE 1 TABLET BY MOUTH EVERY MORNING 90 tablet 1 Active pantoprazole (ProtoNix) 20 MG EC tabletIndication s:Dysphagia, unspecified type TAKE 1 TABLET BY MOUTH TWICE DAILY IN THE MORNING AND IN THE EVENING 180 tablet 1 Active sertraline (Zoloft) 50 MG tablet TAKE 1 TABLET BY MOUTH EVERY MORNING 30 tablet 5 Active atorvastatin (Lipitor) 40 MG tablet TAKE 1 TABLET BY MOUTH AT BEDTIME 90 tablet 1 Active fenofibrate micronized (Lofibra) 134 MG capsuleIndicatio ns:Mixed hyperlipidemia TAKE 1 CAPSULE BY MOUTH EVERY EVENING 90 capsule 1 Active Fluticasone-Salm eterol 100-50 MCG/ACT aerosol powder INHALE 1 PUFF BY MOUTH TWICE DAILY. RINSE MOUTH AFTER USING. Active Lantus SoloStar 100 UNIT/ML pen Inject 30 Units under the skin at bedtime. Active insulin pen needle (BD Pen Needle Short Ultrafine) 31G X 8 mm misc USE DIRECTED WITH INSULIN Active tiZANidine (Zanaflex) 2 MG tablet Take 2 tablets by mouth 2 times daily. Active INSULIN LISPRO, 1 UNIT DIAL, SC 5-15 units 3 times a day before meals; 100 - 149 5 units, 150 - 199 7 units 200 - 249 9 units 250 - 299 11 units 300 - 349 13 units 350 - 399 15 units Active traZODone (Desyrel) 100 MG tabletIndication s:Depressive disorder Take 1 tablet (100 mg) by mouth at bedtime. 90 tablet 3 Active cholecalciferol (Vitamin D-3) 50 MCG (2000 UT) capsule Take 1 capsule (50 mcg) by mouth Once per day. 90 capsule 3 Active alendronate (Fosamax) 70 MG tablet Take 1 tablet by mouth once a week. 2024 Discontinued(M ed list cleanup (will not trigger notification to Pharmacy)) insulin regular (HumuLIN R U-500 KWIKPEN) 500 UNIT/ML CONCENTRATED injection inject 120 units subcutaneously before breakfast & 62 units before dinner 2024 Discontinued(M ed list cleanup (will not trigger notification to Pharmacy)) insulin pen needle (BD Pen Needle Debbie U/F) 32G x 4 mm misc USE TWICE DAILY TO INJECT INSULIN 2024 Discontinued(M ed list cleanup (will not trigger notification to Pharmacy)) canagliflozin (Invokana) 300 MG Take 300 mg by mouth. 019 2024 Discontinued(M ed list cleanup (will not trigger notification to Pharmacy)) clobetasol (Temovate) 0.05 % ointment APPLY TO THE AFFECTED AREA(S) TWICE DAILY 30 g 024 2024 Discontinued(M ed list cleanup (will not trigger notification to Pharmacy)) budesonide-formo terol (Symbicort) 160-4.5 MCG/ACT inhaler Inhale 2 puffs in the morning and at bedtime. Rinse mouth with water after use to reduce aftertaste and incidence of candidiasis. Do not swallow. 2024 Discontinued(M ed list cleanup (will not trigger notification to Pharmacy)) fenofibrate micronized (Lofibra) 134 MG capsuleIndicatio ns:Mixed hyperlipidemia TAKE 1 CAPSULE BY MOUTH EVERY EVENING 90 capsule 1 025 2024 Discontinued ergocalciferol (Vitamin D2) 1.25 MG (53096 UT) capsule TAKE 1 CAPSULE BY MOUTH ONCE WEEKLY ON SUNDAY MORNING 4 capsule 2 025 2024 Discontinued(A lternate therapy) naltrexone (Depade) 50 MG tabletIndication s:Alcohol use disorder, severe, dependence (CMS/HCC) Take 1 tablet (50 mg) by mouth Once per day. Please add to her blister packs 90 tablet 3 025 2024 Discontinued traZODone (Desyrel) 100 MG tabletIndication s:Depressive disorder TAKE 2 TABLETS BY MOUTH EVERY DAY AT BEDTIME 60 tablet 5 025 2024 Discontinued(R eorder (will not trigger notification to Pharmacy)) Active Problems Problem Noted Date Diagnosed Date OAB (overactive bladder) 12/10/2024 Moderate recurrent major depression 08/21/2024 Assessment & Plan (08/26/2024 8:45 AM EDT): During IBH Consult Shireen presenting with depressed mood, hopelessness, loss of interests/pleasure , change in appetite or weight reduce appetite, changes in sleep difficulty falling asleep and difficulty staying asleep , fatigue/loss of energy, difficulty concentrating, indecisiveness; for a period of 6-12 mo, for most or all symptoms in the context of illness or family illness. Pt with chronic medical conditions which leads to experiencing depression. Lack of social support exacerbates sxs. Pt has an oxygen which makes it difficult to do activities. Declined OP referral and reports was connected with [facility] in the past (about 4 / 5 years ago). Pt is able to manage her depressive mood with medication. Alcoholic fibrosis and sclerosis of liver 2023 [...] y per pt neg--referred today again to JOzzy GallegosMM 05/2022 : BIRADS 2 to repeat in 1 year -colonoscopy 2016: hyperplastic colonic mucosa per pt told to repeat in 10 y -DEXA 2019: Osteoporosis based on the lowest T-score value of -2.7-on tx already -vaccines: hepAx2,hepBx3-Immune , Covid 82b5-Bncteujm 10/2022, e80x3-g/p 20 x1, tdap 2022 ,s/p zoster vaccinex2 [...] value of -2.7-on tx already -vaccines: hepAx2,hepBx3,covid 46e9-[place] today, j39k3-r/p 20 x1, tdap 2011- today booster,s/p zoster [...] associated w vascular etiology and rec for forensic nurse referral -pt was tx already w keflex 500 BID x 5 days at last apt w no change in rash -advised pt to raise leg -referred to forensic nurse -pt using fungal cream chronically px by vascular Assessment & Plan (10/25/2022 1:41 PM EDT): Pt w chronic lower left leg pain and erythema -possible vascular in nature ? -I called today her vascular Dr Aadme # [phone]-whp staff pt was last seen in 04/2022 [...] & Plan (11/22/2022 7:44 PM EDT): -DEXA 2018: Osteoporosis based on the lowest T-score value of -2.7 -pt on alendronate weekly-started on 01/2019 ( Confirmed today w her px) and daily Vit D 1999 -vit D 10/2022 34-Stopped taking for some time -pt will check w her bark scaler if had recently any DEXA scan otherwise [...] Vit D 1999 -will check w her bark scaler if had recently any DEXA scan otherwise [...] heterogeneous left thyroid nodule. -pt f w bark scaler-advised pt to continue care w specialist ,pt will discuss tomorrow w specialist if had recently another US or if plan to repeat Assessment & Plan (10/25/2022 1:17 PM EDT): -thyroid US 2019: Small right lobe. Previously identified small right thyroid nodule is not appreciated. Enlarged left lobe. No appreciable change in the solitary, large, heterogeneous left thyroid nodule. -pt f w bark scaler-advised pt to continue care w specialist ,request today call back from endo -will discuss if another thyroid US has been done-if not done will refer at next apt Stage 2 chronic kidney disease 12/04/2019 Diabetic peripheral neuropat hy associated with type 2 diabetes mellitus 07/01/2015 Assessment & Plan (12/10/2024 4:58 PM EDT): Pt w DM2 -insulin dependent w neuropathy Pt is on rapid insulin 220 u in am only and invokana 10/2022 hb1AC is 7.9<---8.9-elevated Gl at 259 .microalb neg , LDL 66 -unsure why pt is not on basal insulin? --I called to her bark scaler-Dr Diamond at # [phone] at previous visit to discuss case. I [...] refused. -pt has f up apt w bark scaler tomorrow and advised to discuss about basal insulin ? - early morning 11/2022 mild non proliferative diabetic retinopathy to f in 6 mo -referred to electrical equipment assembler today Assessment & Plan (11/22/2022 7:42 PM EDT): Pt w DM2 -insulin dependent w neuropathy Pt is on rapid insulin 220 u in am only and invokana 10/2022 hb1AC is 7.9<---8.9-elevated Gl at 259 .microalb neg , LDL 66 -unsure why pt is not on basal insulin? --I called to her bark scaler-Dr Diamond at # [phone] at previous visit to discuss case. I [...] refused. -pt has f up apt w bark scaler tomorrow and advised to discuss about basal insulin ? - early morning 11/2022 mild non proliferative diabetic retinopathy to f in 6 mo -referred to electrical equipment assembler today Assessment & Plan (10/25/2022 1:12 PM EDT): Pt w DM2 -insulin dependent w neuropathy Pt is on rapid insulin 220 u in am only and invokana -today hb1AC is 8.9-elevated CBG at 392--> rechecked was 302 -unsure why pt is not on basal insulin? --I called today her bark scaler-Dr Diamond at # [phone] to discuss case. I left my cell [...] upcoming meal -will await call from her bark scaler to discuss plan of care and advised pt to call her specialist at to schedule apt for uncontrolled DM ,likely associated w her ongoing alcohol intake. -also was referred to DM educational by her bark scaler -referred today to early morning -will refer to electrical equipment assembler at next apt -DM labs Essential hypertension 07/01/2015 Assessment & Plan (12/10/2024 4:57 PM EDT): BP is controlled on ARBs -echo 2016 : EF between 55-60 %.Normal -nuclear stress test 2016: without EKG changes meeting criteria for ischemia. -cardiac cath 2016: non obstructive CAD -EKG today : NSR, TWI in V2 only ,slight ventricular conduction delay ,repolarization disturbance.QTC 466, HR 74x' 10/2022 Microalb neg - early morning 11/2022 Mild non proliferative diabetic retinopathy to f up in 6 mo -continue BP meds Assessment & Plan (11/22/2022 7:42 PM EDT): BP is controlled on ARBs -echo 2016 : EF between 55-60 %.Normal -nuclear stress test 2016: without EKG changes meeting criteria for ischemia. -cardiac cath 2016: non obstructive CAD -EKG today : NSR, TWI in V2 only ,slight ventricular conduction delay ,repolarization disturbance.QTC 466, HR 74x' 10/2022 Microalb neg - early morning 11/2022 Mild non proliferative diabetic retinopathy to f up in 6 mo -continue BP meds Assessment & Plan (10/25/2022 5:54 PM EDT): BP is controlled on ARBs -echo 2016 : EF between 55-60 %.Normal -nuclear stress test 2016: without EKG changes meeting criteria for ischemia. -cardiac cath 2016: non obstructive CAD -referred to early morning -microalb -will check EKG at next apt [...] order new one -referred back to her studio assistant to continue care-has apt on 12/2022 Assessment [...] to start trelegy -referred back to her studio assistant to continue care -request ALFRED ANDERSON to [...] diet and exercise,discussed healthy life style -discussed primer waterproofing machine operator referral --referred already has apt for next month Assessment & Plan (10/25/2022 1:12 PM EDT): Advised pt to improve diet and exercise,discussed healthy life style -discussed primer waterproofing machine operator referral --referred today Smoker 03/25/2015 Assessment & [...] hypoventilatory changes or air trapping. -requested to [place] to obtain last CT chest done per [...] hypoventilatory changes or air trapping. -requested to DC to obtain last CT chest done per [...] to discuss with her primary care or web site specialist on getting treatment for alcohol dependence. We discussed using insulin pump, as referenced in bark scaler note but this time patient does not feel that she can manage an insulin pump independently. Reviewed with patient how to treat hypoglycemia, hypoglycemic handout in Zambian given to patient Encounters Date Type Department Care Team Description 12/11/2024 9:30 AM EDT Office Visit [facility] MED[facility] [address] [place] [phone] Lisa Mccurdy MD Essential hypertension (Primary Dx); Alcoholic cirrhosis, unspecified whether ascites present (CMS/HCC); Alcohol use disorder, severe, dependence (CMS/HCC); Pulmonary emphysema, unspecified emphysema type (CMS/HCC); Diabetic peripheral neuropathy associated with type 2 diabetes mellitus (CMS/HCC); Moderate recurrent major depression (CMS/HCC); OAB (overactive bladder); Diabetes mellitus type 2, insulin dependent (CMS/HCC); Leg swelling; Vitamin D deficiency; Depressive disorder 12/11/2024 Travel 12/05/2024 1:00 PM EDT Office Visit [facility] MEDICINE [address] [place] [phone] Terrence Avila MD Alcohol use disorder, severe, dependence (CMS/HCC) (Primary Dx) 12/05/2024 Travel 12/03/[address] [address] Shireen Stout MD Nurse Triage 11/28/2024 Patient Outreach [address] [address] Shireen Stout MD Transition Of Care (Tcm) (HDF- scheduled (direct)) 11/25/[address] [address] Shireen Stout MD chart prep 11/12/2024 Results Follow-Up [facility] [address] [place] [phone] Shireen Stout MD Us Pelvis complete 11/11/2024 Orders Only [facility] External Provider, [facility] 11/11/2024 Refill [facility] MED [facility] PEDS [address] [place], [place] [phone] Lisa Mccurdy MD Mixed hyperlipidemia 10/22/2024 Patient Outreach [facility] [address] [place] [address] Shireen Stout MD Transition Of Care (Tcm) (HDF unscheduled) 10/09/2024 Refill [facility] [address] [place] [address] Abhijit La MD 10/02/2024 Telephone [facility] [address] [place] [address] Shireen Stout MD Medication Question 09/24/2024 Telephone [facility] [address] [place] [address] Shireen Stout MD Nurse Triage; ER Follow-up 09/22/2024 Telephone [facility] [address] [place] [address] Shireen Stout MD Durable Medical Equipment 09/22/2024 Results Follow-Up [facility] [address] [place] [address] Shireen Stout MD US Thyroid 09/22/2024 Telephone [facility] [address] [place] [phone] Shireen Stout MD med list request 09/20/2024 Orders Only GENERIC EXTERNAL DATA DEPARTMENT Provider, Generic External Data 09/19/2024 Results Follow-Up [facility] [address] [place] [address] Shireen Stout MD Prothrombin Time-INR, Comprehensive Metabolic Panel, Magnesium, CBC auto differential 09/19/2024 Orders Only GENERIC EXTERNAL DATA DEPARTMENT Provider, Generic External Data 09/17/[address] [address] Shireen Stout MD Appointment 09/12/2024 Refill [facility] PEDS [address] [place], [place] [phone] Shireen Stout MD Depressive disorder from Last 3 Months Immunizations Immunization Administration [...] Mass Index 28.91 12/11/2024 9:42 AM EDT Plan of Treatment Health Maintenance Due Date Last Done Comments CT Colonography 1960 FIT DNA/Cologuard 1960 FIT 1960 FOBT 1960 Sigmoidoscopy 1960 Diabetes: Foot Exam 1968 Eye Exam 1968 Hepatitis B Vaccines (1 of 3 - Risk 3-dose series) 2018 05/15/2008, 12/06/2007, 08/29/2007 SDOH Screening 10/24/2024 10/25/2023 COVID-19 Vaccine ( season) 2024 03/05/2024, 06/07/2023, 10/25/2022, Additional history exists Influenza Vaccine (#1) 2024 , 01/23/2023, 01/26/2021, Additional history exists Depression Monitoring 02/21/2025 08/21/2024, 025 Diabetes: Urine Protein Screening 02/27/2025 02/28/2024, 09/10/2020, 06/22/2020, Additional history exists Lipid Panel 02/27/2025 02/28/2024, 08/07, 09/10/2020 Alcohol/Substance Use Screening 03/05/2025 03/05/2024 Diabetes: Hemoglobin A1C 06/10/2025 025, 08/21/2024, 03/05/2024, Additional history exists Mammogram 06/30/2025 06/30/2024, 05/11, 05/23/2021, Additional history exists Tobacco Screening 12/11/2025 12/11/2024 Colonoscopy 05/04/2026 05/04/2016 Colorectal Cancer Screening 05/04/2026 HPV/Cotest 02/20/2028 02/19/2023, 12/19/2016 Pap Smear 02/20/2028 [...] EDT Diabetes mellitus type 2, insulin dependent ([facility]) POCT GLUCOSE Routine 12/11/2024 9:44 AM EDT Diabetes mellitus type 2, insulin dependent ([facility]) US PELVIS COMPLETE Routine 11/12/2024 9: 45 AM EDT HIGH SENSITIVITY TROPONIN I Routine 11/11/2024 3:41 PM EDT LACTIC ACID Routine 11/11/2024 3:[address] ABDOMEN PELVIS W CONTRAST Routine 11/11/2024 1:21 PM EDT GLUCOSE, WHOLE BLOOD Routine 09/20/2024 7:24 AM EDT GLUCOSE, WHOLE BLOOD Routine 09/20/2024 12:06 AM EDT GLUCOSE, WHOLE BLOOD Routine 09/19/2024 10:06 PM EDT XR HIP LEFT WITH PELVIS 1 VIEW Routine 09/19/2024 8:[address] CERVICAL SPINE WO CONTRAST Routine 09/19/2024 8:[address] HEAD WO CONTRAST Routine 09/19/2024 8 :[address] SINUS FACIAL BONES WO CONTRAST Routine 09/19/2024 8:20 PM EDT CBC WITH AUTO DIFFERENTIAL Routine 09/19/2024 7:09 PM EDT MAGNESIUM Routine 09/19/2024 7:09 PM EDT COMPREHENSIVE METABOLIC PANEL Routine 09/19/2024 7:09 PM EDT PROTHROMBIN TIME-INR Routine 09/19/2024 7:09 PM EDT US THYROID Routine 09/19/2024 4:05 PM EDT Thyroid nodule BI MAMMOGRAM SCREENING TOMOSYNTHESIS BILATERAL Routine 06/30/2024 [...] Recently Relevant to Health Maintenance Results * POCT Hgb A1c (12/11/2024 9:46 AM EDT) Hemoglobin A1C 5.7 4.0 - 5.7 % QC Media Lot # [id number] Lot# Expiration Date [id number] Blood 12/11/2024 9:46 AM EDT Lisa Mccurdy MD POINT OF CARE TEST ENTER/EDIT OR DERABLES Final Result * (ABNORMAL) POCT Glucose (12/11/2024 9:44 AM EDT) Glucose Blood, POC 264(A) 60 - 200 mg/dL QC Media Lot # [id number] Lot# Expiration Date Blood Capillary blood specimen / Unknown 12/11/2024 9:44 AM EDT us Lisa Mccurdy MD POINT OF CARE TEST ENTER/EDIT OR DERABLES Final Result * Us Pelvis complete (11/12/2024 9:45 AM EDT) Anatomical Region Laterality Modality Pelvis Ultrasound 11/12/2024 9:45 AM EDT Narrative 11/12/2024 10:38 AM EDT [place] [address] Ultrasound Report Signed Patient: Shireen Tavarez MR#: [id number] 1 : 1960 Acct:[id number] Age/Sex: 63 / F ADM Date: 11/11/24 [facility]: Dylan Adams MD Ordering Physician: Gerri Walls MD Date of Service: 11/12/24 Procedure(s): US pelvic complete Accession Number(s): [id number] cc: Gerri Walls MD; Shireen Stout MD EXAMINATION: US PELVIS HISTORY: ? Uterine mass on CT COMPARISON: Correlation is made with a CT of the pelvis dated 11/11/2024. TECHNIQUE: Transabdominal real-time 2D calloway-scale ultrasound was performed. FINDINGS: Uterus: The uterus is normal in size, measuring 7.7 x 3.5 x 5.7 cm. Myometrium has a normal echotexture. No fibroids are identified. Endometrium: There is an echogenic mass within the uterus measuring 3.7 x 2.5 x 3.8 cm. Right ovary: The right ovary measures 1.4 x 0.9 x 1.4 cm. The right ovary is normal in size and echotexture. Left ovary: The left ovary is not identified. Pelvic fluid: none. US/US pelvic complete IMPRESSION: 3.7 x 2.5 x 3.8 cm echogenic mass in the uterus. Evaluation is limited by lack of an endovaginal scan. TEXTILE MACHINERY INSTRUCTOR consultation is recommended. Electronically signed by: Kaushik Ramirez MD 11/12/2024 10:35 AM EDT RP Dictated By: Kaushik Ramirez MD Signed By: <Electronically signed by Kaushik Ramirez MD in OV> 11/12/24 1035 DD/ 0945 TD/TT: 11/12/24 0948 Catalog Library Assistant: Procedure Note Donotuseinterpreter, Image - 11/12/[address] [address] Ultrasound Report Signed Patient: Hunter Tavarez#: [id number] 1 : 9Acct:[id number] Age/Sex: 63 / FADM Date: 11/11/24 Loc: [facility]: Dylan Adams MD Ordering Physician: Gerri Walls MD Date of Service: 11/12/24 Procedure(s): US pelvic complete Accession Number(s): [id number] cc: Gerri Walls MD; Shireen Stout MD EXAMINATION: US PELVIS HISTORY: ? Uterine mass on CT COMPARISON: Correlation is made with a CT of the pelvis dated 11/11/2024. TECHNIQUE: Transabdominal real-time 2D calloway-scale ultrasound was performed. FINDINGS: Uterus: The uterus is normal in size, measuring 7.7 x 3.5 x 5.7 cm. Myometrium has a normal echotexture. No fibroids are identified. Endometrium: There is an echogenic mass within the uterus measuring 3.7 x 2.5 x 3.8 cm. Right ovary: The right ovary measures 1.4 x 0.9 x 1.4 cm. The right ovary is normal in size and echotexture. Left ovary: The left ovary is not identified. Pelvic fluid: none. US/US pelvic complete IMPRESSION: 3.7 x 2.5 x 3.8 cm echogenic mass in the uterus. Evaluation is limited by lack of an endovaginal scan. TEXTILE MACHINERY INSTRUCTOR consultation is recommended. Electronically signed by: Kaushik Ramirez MD 11/12/2024 10:35 AM EDT RP Dictated By: Kaushik Ramirez MD Signed By: <Electronically signed by Kaushik Ramirez MD in OV> 11/12/24 1035 DD/ 0945 TD/TT: 11/12/24 0948 Catalog Library Assistant: [facility] External Provider IMG US PROCEDURES Final Result * (ABNORMAL) High Sensitivity Troponin I (11/11/2024 3:41 PM EDT) TROPONIN I HIGH SENSITIVITY 52.5(HH) <3.5 - 17.0 ng/L [facility] Comment:Critical value for t est(s): TROPONIN Results called to juan pablo back by: FANY Person calling:[id number] Date: 11/11/24Time:1612The Mccain high sensitivity Troponin-I results should beused in conjunction with other diagnostic information suchas ECG, clinical observations and information, and patientsymptoms to aid in the diagnosis of ID. 11/11/2024 3:41 PM EDT 11/11/2024 3:49 PM EDT Generic External Data Provider LAB BLOOD ORDERAB LES Final Result [facility] [address] [place] [phone] * Lactic Acid (11/11/2024 3:41 PM EDT) Lactic Acid 1.6 0.5 - 2.0 mmol/L [facility] 11/11/2024 3:41 PM EDT 11/11/2024 3:49 PM EDT us Generic External Data Provider LAB BLOOD ORDERAB LES Final Result [facility] [address] [place] [phone] * CT Abdomen Pelvis w/ Contrast (11/11/2024 1:21 PM EDT) Anatomical Region Laterality Modality Body, Pelvis, Abdomen Computed T omography 11/11/2024 1:21 PM EDT Narrative 11/11/2024 2:59 PM EDT [address] [address] [address] Scan Report Signed Patient: Shireen Tavarez MR#: [id number] 1 : 1960 Acct:[id number] Age/Sex: 63 / F ADM Date: 11/11/24 Loc: [facility].ED Attending Dr: Ordering Physician: Libertad Elena Date of Service: 11/11/24 Procedure(s): CT abdomen pelvis w IV con Accession Number(s): [id number] cc: Shireen Stout MD; Libertad Elena Report Number: [id number]: Total DLP = 448.00 mGy-cm EXAMINATION: CT ABDOMEN PELVIS WITH IV CONTRAST HISTORY: LLQ pain, n/v/d COMPARISON: Comparison is made with the prior CT of the abdomen without contrast dated 03/26/2023. TECHNIQUE: CT scan of the abdomen and pelvis was performed following administration of 85 mL Omnipaque 350 using standard departmental protocol. Coronal and sagittal reformatted images were generated and reviewed. Oral contrast material was not administered at the request of the referring physician. This CT exam was performed with one or more of the following dose reduction techniques: automated exposure control, adjustment of the mA and/or kV according to patient size, use of iterative reconstruction technique. DLP: 448 mGy-cm FINDINGS: LOWER CHEST: There is subsegmental atelectasis at both lung bases. There is no pleural effusion. CARDIOVASCULATURE: The heart is normal in size. There is no pericardial effusion. LIVER: The liver again demonstrates a nodular contour, consistent with cirrhosis. No liver mass is identified. The hepatic and portal veins are patent. There is a recannulized paraumbilical vein. GALLBLADDER / BILE DUCTS: The gallbladder is unremarkable. There is no intra or extrahepatic biliary ductal dilatation. SPLEEN: The spleen is enlarged. There are multiple focal splenic hypodense lesions measuring up to 1.4 cm in size. PANCREAS: The pancreas is markedly atrophic. ADRENAL GLANDS: Within normal limits. KIDNEYS/RETROPERITONEUM: No renal calculi are identified. There is no hydronephrosis. No renal masses are identified. LYMPH NODES: No abdominal or pelvic lymphadenopathy. VASCULATURE: The abdominal aorta demonstrates atherosclerotic calcification, but is normal in caliber. MESENTERY/PERITONEUM: No free fluid. No masses. There is no free intraperitoneal gas. STOMACH: The stomach is collapsed, limiting evaluation. SMALL BOWEL: The small bowel is normal in caliber. COLON: The colon is unremarkable. APPENDIX: The appendix is not seen, however no inflammatory changes are seen adjacent to the cecum. URINARY BLADDER/PELVIC ORGANS: The urinary bladder is unremarkable. There is heterogeneous material within the uterus, highly suggestive of a mass. BONES / SOFT TISSUES: No suspicious bony or soft tissue abnormalities. CT/CT abdomen pelvis w IV con IMPRESSION: 1. Heterogeneous material in the uterus, highly suggestive of a mass. Pelvic ultrasound is recommended. 2. Cirrhosis of the liver. 3. Splenomegaly. Multiple focal splenic hypodense lesions, of uncertain etiology. Electronically signed by: Kaushik Ramirez MD 11/11/2024 02:57 PM EDT Dictated By: Kaushik Ramirez MD Signed By: <Electronically signed by Kaushik Ramirez MD in OV> 11/11/24 1457 DD/ 1321 TD/TT: 11/11/24 1445 Catalog Library Assistant: Procedure Note Donotuseinterpreter, Image - 11/11/[address] [address] [address] Scan Report Signed Patient: Hunter Tavarez#: [id number] 1 : 9Acct:[id number] Age/Sex: 63 / FADM Date: 11/11/24 Loc: HO.ED Attending Dr: Ordering Physician: Libertad Elena Date of Service: 11/11/24 Procedure(s): CT abdomen pelvis w IV con Accession Number(s): [id number] cc: Shireen Stout MD; Libertad Elena Report Number: [id number]: Total DLP = 448.00 mGy-cm EXAMINATION: CT ABDOMEN PELVIS WITH IV CONTRAST HISTORY: LLQ pain, n/v/d COMPARISON: Comparison is made with the prior CT of the abdomen without contrast dated 03/26/2023. TECHNIQUE: CT scan of the abdomen and pelvis was performed following administration of 85 mL Omnipaque 350 using standard departmental protocol. Coronal and sagittal reformatted images were generated and reviewed. Oral contrast material was not administered at the request of the referring physician. This CT exam was performed with one or more of the following dose reduction techniques: automated exposure control, adjustment of the mA and/or kV according to patient size, use of iterative reconstruction technique. DLP: 448 mGy-cm FINDINGS: LOWER CHEST: There is subsegmental atelectasis at both lung bases. There is no pleural effusion. CARDIOVASCULATURE: The heart is normal in size. There is no pericardial effusion. LIVER: The liver again demonstrates a nodular contour, consistent with cirrhosis. No liver mass is identified. The hepatic and portal veins are patent. There is a recannulized paraumbilical vein. GALLBLADDER / BILE DUCTS: The gallbladder is unremarkable. There is no intra or extrahepatic biliary ductal dilatation. SPLEEN: The spleen is enlarged. There are multiple focal splenic hypodense lesions measuring up to 1.4 cm in size. PANCREAS: The pancreas is markedly atrophic. ADRENAL GLANDS: Within normal limits. KIDNEYS/RETROPERITONEUM: No renal calculi are identified. There is no hydronephrosis. No renal masses are identified. LYMPH NODES: No abdominal or pelvic lymphadenopathy. VASCULATURE: The abdominal aorta demonstrates atherosclerotic calcification, but is normal in caliber. MESENTERY/PERITONEUM: No free fluid. No masses. There is no free intraperitoneal gas. STOMACH: The stomach is collapsed, limiting evaluation. SMALL BOWEL: The small bowel is normal in caliber. COLON: The colon is unremarkable. APPENDIX: The appendix is not seen, however no inflammatory changes are seen adjacent to the cecum. URINARY BLADDER/PELVIC ORGANS: The urinary bladder is unremarkable. There is heterogeneous material within the uterus, highly suggestive of a mass. BONES / SOFT TISSUES: No suspicious bony or soft tissue abnormalities. CT/CT abdomen pelvis w IV con IMPRESSION: 1. Heterogeneous material in the uterus, highly suggestive of a mass. Pelvic ultrasound is recommended. 2. Cirrhosis of the liver. 3. Splenomegaly. Multiple focal splenic hypodense lesions, of uncertain etiology. Electronically signed by: Kaushik Ramirez MD 11/11/2024 02:57 PM EDT RP Dictated By: Kaushik Ramirez MD Signed By: <Electronically signed by Kaushik Ramirez MD in OV> 11/11/24 1457 DD/ 1321 TD/TT: 11/11/24 1445 Catalog Library Assistant: [facility] External Provider IMG CT PROCEDURES Edited Result - Final * (ABNORMAL) Glucose, Whole Blood (09/20/2024 7:24 AM EDT) Only the most recent of3 resultswithin the time period is included. Glucose, Whole Blood 299(H) 60 - 115 mg/dL [facility] Comment:METER #: [id number] 09/20/2024 7:24 AM EDT 09/20/2024 7:28 AM EDT Generic External Data Provider LAB BLOOD ORDERAB LES Final Result [facility] [address] [place] [phone] * XR Hip left with Pelvis 1 view (09/19/2024 8:49 PM EDT) Anatomical Region Laterality Modality Lower Extremities, Hip Bilateral Radiograp hic Imaging 09/19/2024 8:49 PM EDT Narrative 09/19/2024 8:51 PM EDT [address] [address] XRay Report Signed Patient: Shireen Tavarez MR#: [id number] 1 : 1960 Acct:[id number] Age/Sex: 63 / F ADM Date: 09/19/24 Loc: HO.ED Attending Dr: Ordering Physician: Doe Reed MD Date of Service: 09/19/24 Procedure(s): XR hip LT w PEL1V Accession Number(s): [id number] cc: Shireen Stout MD; Doe Reed MD CLINICAL HISTORY: Fall, left hip pain rule out fracture 3 view, pelvis and left hip Comparison: None Findings: The bones are intact. No significant arthritic change. The soft tissues are unremarkable. IMPRESSION: No acute findings. This document has been electronically signed by: Earl Griggs MD on 09/19/2024 20:49:26 Dictated By: Earl Griggs MD Signed By: <Electronically signed by Earl Griggs MD in OV> 09/19/242049 DD/ 48 TD/TT: 09/19/242048 Catalog Library Assistant: Procedure Note Donotuseinterpreter, Image - 09/19/[address] [address] XRay Report Signed Patient: Shireen TavarezMR#: [id number] 1 : 1960cct:[id number] Age/Sex: 63 / FADM Date: 09/19/24 Loc: HO.ED Attending Dr: Ordering Physician: Doe Reed MD Date of Service: 09/19/24 Procedure(s): XR hip LT w PEL1V Accession Number(s): [id number] cc: Shireen Stout MD; Doe Reed MD CLINICAL HISTORY: Fall, left hip pain rule out fracture 3 view, pelvis and left hip Comparison: None Findings: The bones are intact. No significant arthritic change. The soft tissues are unremarkable. IMPRESSION: No acute findings. This document has been electronically signed by: Earl Griggs MD on 09/19/2024 20:49:26 Dictated By: Earl Griggs MD Signed By: <Electronically signed by Earl Griggs MD in OV> 09/19/242049 DD/ 48 TD/TT: 09/19/242048 Catalog Library Assistant: us [facility] External Provider IMG XR PROCEDURES Final Result * CT Cervical Spine w/o Contrast (09/19/2024 8:47 PM EDT) Anatomical Region Laterality Modality Spine, C-spine Computed Tomogra phy 09/19/2024 8:47 PM EDT Narrative 09/19/2024 8:49 PM EDT [place] [address] CT Scan Report Signed Patient: Shireen Tavarez MR#: [id number] 1 : 1960 Acct:[id number] Age/Sex: 63 / F ADM Date: 09/19/24 Loc: HO.ED Attending Dr: Ordering Physician: Doe Reed MD Date of Service: 09/19/24 Procedure(s): CT cervical spine wo IV con Accession Number(s): [id number] cc: Shireen Stout MD; Doe Reed MD Report Number: [id number]: Total DLP = 468.00 mGy-cm CLINICAL HISTORY: Fall, neck pain rule out fracture CT cervical spine without contrast Comparison: None Findings: Normal vertebral body alignment. Multilevel disc space narrowing and endplate osteophyte formation, as well as facet hypertrophy. No acute fractures or dislocations. Near complete opacification of the right maxillary sinus. No acute findings on limited view of the intracranial contents. No cervical fluid collections or masses. No consolidation or effusion at the lung apices. IMPRESSION: No acute findings. This document has been electronically signed by: Earl Griggs MD on 09/19/2024 20:47:59 Dictated By: Earl Griggs MD Signed By: <Electronically signed by Earl Griggs MD in OV> 09/19/242047 DD/ 46 TD/TT: 09/19/242046 Catalog Library Assistant: Procedure Note Donotuseinterpreter, Image - 09/19/[address] [address] [address] Scan Report Signed Patient: Shireen TavarezMR#: [id number] 1 : 9Acct:[id number] Age/Sex: 63 / FADM Date: 09/19/24 Loc: HO.ED Attending Dr: Ordering Physician: Doe Reed MD Date of Service: 09/19/24 Procedure(s): CT cervical spine wo IV con Accession Number(s): [id number] cc: Shireen Stout MD; Doe Reed MD Report Number: [id number]: Total DLP = 468.00 mGy-cm CLINICAL HISTORY: Fall, neck pain rule out fracture CT cervical spine without contrast Comparison: None Findings: Normal vertebral body alignment. Multilevel disc space narrowing and endplate osteophyte formation, as well as facet hypertrophy. No acute fractures or dislocations. Near complete opacification of the right maxillary sinus. No acute findings on limited view of the intracranial contents. No cervical fluid collections or masses. No consolidation or effusion at the lung apices. IMPRESSION: No acute findings. This document has been electronically signed by: Earl Griggs MD on 09/19/2024 20:47:59 Dictated By: Earl Griggs MD Signed By: <Electronically signed by Earl Griggs MD in OV> 09/19/242047 DD/ 46 TD/TT: 09/19/242046 Catalog Library Assistant: us [facility] External Provider IMG CT PROCEDURES Final Result * CT Sinus Facial Bones w/o Contrast (09/19/2024 8:20 PM EDT) Anatomical Region Laterality Modality Computed Tomogra phy 09/19/2024 8:20 PM EDT Narrative 09/19/2024 8:21 PM EDT [address] [address] [address] Scan Report Signed Patient: Shireen Tavarez MR#: [id number] 1 : 1960 Acct:[id number] Age/Sex: 63 / F ADM Date: 09/19/24 Loc: HO.ED Attending Dr: Ordering Physician: Doe Reed MD Date of Service: 09/19/24 Procedure(s): CT facial bones wo IV con Accession Number(s): [id number] cc: Shireen Stout MD; Doe Reed MD Report Number: [id number]: Total DLP = 440.41 mGy-cm CLINICAL HISTORY: Fall, neck pain CT maxillofacial without contrast Comparison: None Findings: No acute fractures. Temporomandibular joints are intact. Near complete opacification of the right maxillary sinus. Unremarkable orbital contents. Visualized intracranial contents are within normal limits. No foreign bodies. IMPRESSION: 1. No acute process. 2. Right maxillary sinus disease. This document has been electronically signed by: Earl Griggs MD on 09/19/2024 20:20:06 Dictated By: Earl Griggs MD Signed By: <Electronically signed by Earl Griggs MD in OV> 09/19/242019 DD/ 19 TD/TT: 09/19/242019 Catalog Library Assistant: Procedure Note Donotuseinterpreter, Image - 09/19/[address] [address] [address] Scan Report Signed Patient: Shireen TavarezMR#: [id number] 1 : 1960cct:[id number] Age/Sex: 63 / FADM Date: 09/19/24 Loc: HO.ED Attending Dr: Ordering Physician: Doe Reed MD Date of Service: 09/19/24 Procedure(s): CT facial bones wo IV con Accession Number(s): [id number] cc: Shireen Stout MD; Doe Reed MD Report Number: [id number]: Total DLP = 440.41 mGy-cm CLINICAL HISTORY: Fall, neck pain CT maxillofacial without contrast Comparison: None Findings: No acute fractures. Temporomandibular joints are intact. Near complete opacification of the right maxillary sinus. Unremarkable orbital contents. Visualized intracranial contents are within normal limits. No foreign bodies. IMPRESSION: 1. No acute process. 2. Right maxillary sinus disease. This document has been electronically signed by: Earl Griggs MD on 09/19/2024 20:20:06 Dictated By: Earl Griggs MD Signed By: <Electronically signed by Earl Griggs MD in OV> 09/19/242019 DD/ 19 TD/TT: 09/19/242019 Catalog Library Assistant: [facility] External Provider IMG CT PROCEDURES Final Result * CT Head w/o Contrast (09/19/2024 8:20 PM EDT) Anatomical Region Laterality Modality Head, Neck Computed Tomogra phy 09/19/2024 8:20 PM EDT Narrative 09/19/2024 8:22 PM EDT [place] [address] CT Scan Report Signed Patient: Shireen Tavarez MR#: [id number] 1 : 1960 Acct:[id number] Age/Sex: 63 / F ADM Date: 09/19/24 Loc: HO.ED Attending Dr: Ordering Physician: Doe Reed MD Date of Service: 09/19/24 Procedure(s): CT head/brain wo IV con Accession Number(s): [id number] cc: Shireen Stout MD; Doe Reed MD Report Number: [id number]: Total DLP = 610.54 mGy-cm CLINICAL HISTORY: Fall, head strike, occipital hematoma, headache --- Additional Notes or Special Instructions: R O fracture, bleed CT head without contrast Comparison: None Findings: No intra-axial mass, midline shift, hydrocephalus, or acute hemorrhage. Age appropriate cerebral volume loss. Patchy low-density within the periventricular and subcortical white matter. Near complete opacification of the right maxillary sinus. The orbits are within normal limits. There is no acute fracture. IMPRESSION: 1. No acute intracranial findings. 2. Right maxillary sinus disease. This document has been electronically signed by: Earl Griggs MD on 09/19/2024 20:20:25 Dictated By: Earl Griggs MD Signed By: <Electronically signed by Earl Griggs MD in OV> 09/19/242020 DD/ 19 TD/TT: 09/19/242019 Catalog Library Assistant: Procedure Note Donotuseinterpreter, Image - 09/19/[address] [place] [address] [address] Scan Report Signed Patient: Shireen TavarezMR#: [id number] 1 : 9Acct:[id number] Age/Sex: 63 / FADM Date: 09/19/24 Loc: HO.ED Attending Dr: Ordering Physician: Doe Reed MD Date of Service: 09/19/24 Procedure(s): CT head/brain wo IV con Accession Number(s): [id number] cc: Shireen Stout MD; Doe Reed MD Report Number: [id number]: Total DLP = 610.54 mGy-cm CLINICAL HISTORY: Fall, head strike, occipital hematoma, headache ---Additional Notes or Special Instructions: R O fracture, bleed CT head without contrast Comparison: None Findings: No intra-axial mass, midline shift, hydrocephalus, or acute hemorrhage. Age appropriate cerebral volume loss. Patchy low-density within the periventricular and subcortical white matter. Near complete opacification of the right maxillary sinus. The orbits are within normal limits. There is no acute fracture. IMPRESSION: 1. No acute intracranial findings. 2. Right maxillary sinus disease. This document has been electronically signed by: Earl Griggs MD on 09/19/2024 20:20:25 Dictated By: Earl Griggs MD Signed By: <Electronically signed by Earl Griggs MD in OV> 09/19/242020 DD/ 19 TD/TT: 09/19/242019 Catalog Library Assistant: [facility] External Provider IMG CT PROCEDURES Final Result * (ABNORMAL) CBC auto differential (09/19/2024 7:09 PM EDT) White Blood Count 8.5 4.8 - 10.8 X10*3/uL [facility] Red Blood Count 3.82(L) 4.20 - 5.50 X10*6/uL [facility] Hemoglobin 10.2(L) 12.0 - 16.0 g/dl [facility] Hematocrit 33.0(L) 37.0 - 47.0 % [facility] Mean Corpuscular Volume 86.4 80.0 - 98.0 fL [facility] Mean Corpuscular Hemoglobin 26.7(L) 27.0 - 33.0 pg [facility] Mean Corpuscular HGB Conc 30.9(L) 31.0 - 35.0 g/dl [facility] Red Cell Distribution Width 15.9 11.0 - 16.0 % [facility] Platelet Count 255 160 - 400 X10*3/uL [facility] Mean Platelet Volume 10.4 9.4 - 12.3 fL [facility] Neutrophils Percent Auto 73.4(H) 45 - 73 % [facility] Imm Gran Pct Auto 1.4(H) 0.0 - 0.4 % [facility] Lymphocytes Percent Auto 17.8(L) 20 - 40 % [facility] Monocytes Percent Auto 5.9 2 - 11 % [facility] Eosinophils Percent Auto 1.1 0 - 4 % [facility] Basophils Percent Auto 0.4 0 - 2 % [facility] NRBC Pct Auto 0.0 0.0 - 0.2 /100WBC [facility] Neutrophils Absolute Auto 6.2 2.0 - 8.3 x10*3/uL [facility] Imm Gran Abs Auto 0.12(H) 0.00 - 0.03 X10*3/uL [facility] Lymphocytes Absolute Auto 1.5 1.2 - 4.9 X10*3/uL [facility] Monocytes Absolute Auto 0.5 0.1 - 1.2 X10*3/uL [facility] Eosinophils Absolute Auto 0.1 0.0 - 0.4 X10*3/uL [facility] Basophils Absolute Auto 0.0 0.0 - 0.2 X10*3/uL [facility] NRBC Abs Auto 0.000 0.0 - 0.012 X10*3/uL [facility] 09/19/2024 7:09 PM EDT 09/19/2024 7:12 PM EDT Generic External Data Provider LAB BLOOD ORDERAB LES Final Result Performing Organization Address [facility]/ZIP Co de Phone Number [facility] [address] [place] [phone] * (ABNORMAL) Prothrombin Time-INR (09/19/2024 7:09 PM EDT) Prothrombin Time 13.4(H) 10.9 - 12.4 SEC [facility] INTERNATIONAL NORM RATIO 1.2(H) 0.9 - 1.1 [facility] Comment:INTERNATIONAL NORMAL IZED RATIO (INR) REFERENCE RANGES Reference RangeFor patients not on anticoagulant therapy: 0.9 - 1.1INR ranges for oral anticoagulanttherapy:For prevention and treatment of venous thrombosis and pulmonary embolism: 2.0 - 3.0For acute myocardial infarction with aspirin therapy: 2.0 - 3.0For acute myocardial infarction without aspirin therapy: 3.0 - 4.0For patients with mechanical prosthetic heart valves: 2.5 - 3.5 09/19/2024 7:09 PM EDT 09/19/2024 7:12 PM EDT Generic External Data Provider LAB BLOOD ORDERAB LES Final Result Performing Organization Address [facility]/ZIP Co de Phone Number [facility] [address] [place] [phone] * Magnesium (09/19/2024 7:09 PM EDT) Magnesium 1.7 1.6 - 2.6 mg/dL [facility] 09/19/2024 7:09 PM EDT 09/19/2024 7:12 PM EDT us Generic External Data Provider LAB BLOOD ORDERAB LES Final Result [facility] [address] [place] [phone] * (ABNORMAL) Comprehensive Metabolic Panel (09/19/2024 7:09 PM EDT) Sodium 139 135 - 145 mmol/L [facility] Potassium 4.6 3.3 - 5.1 mmol/L [facility] Chloride 100 96 - 108 mmol/L [facility] Carbon Dioxide 31(H) 22 - 29 mmol/L [facility] Anion Gap 13 12 - 20 [facility] Urea Nitrogen (BUN) 9 9 - 16 mg/dL [facility] Creatinine, Serum 0.79 0.5 - 1.4 mg/dL [facility] Creatinine Clr Calc Pharmacy 69.8 [facility] Comment:Provided height and weight: 154.94 cm,84 kg.eGFR (calculated from the MDRD study equation) and eCrCl(calculated from the Cockcroft-Gault equation) are based ondifferent parameters and may not yield comparable results.If eCrCl result is absurd, please check patient'sheight/weight. Estimated Glomerular Filt Rate >60 [facility] Comment:Chronic Kidney Disea se: Estimated GFR < 60 mL/min/1.24t9Pclwqe Kidney Disease: Estimated GFR < 15 mL/min/1.73m2 Glucose 290(H) 60 - 115 mg/dL [facility] Calcium 9.3 8.4 - 10.2 mg/dL [facility] Bilirubin, Total 0.6 0.0 - 1.0 mg/dL [facility] Aspartate Amino Transferase 59(H) 5 - 31 U/L [facility] Alanine Aminotransferase 32(H) 0 - 31 U/L [facility] Total Protein 8.0 6.5 - 8.0 g/dL [facility] Albumin Level 4.5 3.5 - 5.0 g/dL [facility] Alkaline Phosphatase 46 39 - 117 U/L [facility] 09/19/2024 7:09 PM EDT 09/19/2024 7:12 PM EDT us Generic External Data Provider LAB BLOOD ORDERAB LES Final Result [facility] [address] [place] [phone] * US Thyroid (09/19/2024 4:05 PM EDT) Anatomical Region Laterality Modality Head, Neck Ultrasound 09/19/2024 4:05 PM EDT Narrative 09/22/2024 9:52 AM EDT [place] [address] Ultrasound Report Signed Patient: Shireen Tavarez MR#: [id number] 1 : 1960 Acct:[id number] Age/Sex: 63 / F ADM Date: 09/19/24 Loc: HO.US Attending Dr: Shireen Krishnan MD Ordering Physician: Shireen Stout MD Date of Service: 09/19/24 Procedure(s): US thyroid Accession Number(s): [id number] cc: Shireen Stout MD EXAMINATION: US THYROID CLINICAL INFORMATION: Thyroid nodules. Thyroid FNA 10/16/2017, benign as per patient. COMPARISON: 05/17/2022. 06/30/2020. TECHNIQUE: Linear transducer grayscale and color Doppler examination with attention to the region of the thyroid. FINDINGS: SIZE: Measurements of the thyroid lobes and nodules are given in sagittal, anteroposterior and transverse dimensions respectively. Right Thyroid Lobe: 3.2 x 0.8 x 0.8 cm, volume 1.1 mL. (Previously 1.0 mL) Parenchyma: The gland echotexture is homogeneous. Thyroid vascularity is normal. Left Thyroid Lobe: 5.5 x 2.9 x 2.2 cm, volume 18.0 mL. (Previously 18.2 mL) Parenchyma: The gland echotexture is heterogeneous. Thyroid vascularity is normal. Isthmus: 0.2 cm in maximum AP dimension. Estimated total number of nodules greater than or equal to 1 cm: 1. Grey Tender nodules are described as follows: 1. Location: Left midpole. Size: 3.2 x 2.5 x 2.6 cm, volume 10.8 mL. (Previously measuring 10.3 mL) Nodule characteristics: Composition: Solid/almost completely solid (2). Echogenicity: Hypoechoic (2). Shape: Not taller than wide (0). Margins: Ill-defined (0). Echogenic Foci: Macrocalcifications (1). ACR TI-RADS total points: 5 ACR TI-RADS category: 4 (previously also designated TR category 4) NODES: No lymphadenopathy is seen in the tissue surrounding the thyroid gland. US/US thyroid IMPRESSION: 1. Essentially stable 3.2 cm TR category 4 nodule left midpole. 2. Mildly atrophic right thyroid lobe, unchanged. 3. No new nodules. ACR TI-RADS RECOMMENDATION REFERENCE: Ultrasound-guided fine-needle aspiration, followup ultrasound, no further follow up. * TR1 (0 point) and TR2 (2 points): No FNA or follow up. * TR3 (3 points): FNA if more than or equal to 2.5 cm in maximum dimension, followup ultrasound in 1, 3 and 5 years if 1.5 to 2.4 cm in maximum dimension. * TR4 (4-6 points): FNA if more than or equal to 1.5 cm in maximum dimension, followup ultrasound in 1, 2, 3 and 5 years if 1 to 1.4 cm in maximum dimension. * TR5 (more than or equal to 7 points): FNA if more than or equal to 1 cm in maximum dimension, followup ultrasound every year for 5 years if 0.5 to 0.9 cm in maximum dimension. * TR3, TR4 or TR5 nodules that are below the size threshold for followup receive no follow up. Electronically signed by: Manjeet Cee MD 09/22/2024 09:49 AM EDT Dictated By: Manjeet Cee MD Signed By: <Electronically signed by Manjeet Cee MD in OV> 09/22/24 0949 DD/ 1605 TD/TT: 09/19/24 1616 Catalog Library Assistant: Procedure Note Donotuseinterpreter, Image - 09/22/2024 [place] [address] Ultrasound Report Signed Patient: Hunter Tavarez#: [id number] 1 : 9Acct:[id number] Age/Sex: 63 / FADM Date: 09/19/24 Loc: HO.US Attending Dr: Shireen Krishnan MD Ordering Physician: Shireen Stout MD Date of Service: 09/19/24 Procedure(s): US thyroid Accession Number(s): [id number] cc: Shireen Stout MD EXAMINATION: US THYROID CLINICAL INFORMATION: Thyroid nodules. Thyroid FNA 10/16/2017, benign as per patient. COMPARISON: 05/17/2022. 06/30/2020. TECHNIQUE: Linear transducer grayscale and color Doppler examination with attention to the region of the thyroid. FINDINGS: SIZE: Measurements of the thyroid lobes and nodules are given in sagittal, anteroposterior and transverse dimensions respectively. Right Thyroid Lobe: 3.2 x 0.8 x 0.8 cm, volume 1.1 mL. (Previously 1.0 mL) Parenchyma: The gland echotexture is homogeneous. Thyroid vascularity is normal. Left Thyroid Lobe: 5.5 x 2.9 x 2.2 cm, volume 18.0 mL. (Previously 18.2 mL) Parenchyma: The gland echotexture is heterogeneous. Thyroid vascularity is normal. Isthmus: 0.2 cm in maximum AP dimension. Estimated total number of nodules greater than or equal to 1 cm: 1. Grey Tender nodules are described as follows: 1. Location: Left midpole. Size: 3.2 x 2.5 x 2.6 cm, volume 10.8 mL. (Previously measuring 10.3 mL) Nodule characteristics: Composition: Solid/almost completely solid (2). Echogenicity: Hypoechoic (2). Shape: Not taller than wide (0). Margins: Ill-defined (0). Echogenic Foci: Macrocalcifications (1). ACR TI-RADS total points: 5 ACR TI-RADS category: 4 (previously also designated TR category 4) NODES: No lymphadenopathy is seen in the tissue surrounding the thyroid gland. US/US thyroid IMPRESSION: 1. Essentially stable 3.2 cm TR category 4 nodule left midpole. 2. Mildly atrophic right thyroid lobe, unchanged. 3. No new nodules. ACR TI-RADS RECOMMENDATION REFERENCE: Ultrasound-guided fine-needle aspiration, followup ultrasound, no further follow up. * TR1 (0 point) and TR2 (2 points): No FNA or follow up. * TR3 (3 points): FNA if more than or equal to 2.5 cm in maximum dimension, followup ultrasound in 1, 3 and 5 years if 1.5 to 2.4 cm in maximum dimension. * TR4 (4-6 points): FNA if more than or equal to 1.5 cm in maximum dimension, followup ultrasound in 1, 2, 3 and 5 years if 1 to 1.4 cm in maximum dimension. * TR5 (more than or equal to 7 points): FNA if more than or equal to 1 cm in maximum dimension, followup ultrasound every year for 5 years if 0.5 to 0.9 cm in maximum dimension. * TR3, TR4 or TR5 nodules that are below the size threshold for followup receive no follow up. Electronically signed by: Manjeet Cee MD 09/22/2024 09:49 AM EDT Dictated By: Manjeet Cee MD Signed By: <Electronically signed by Manjeet Cee MD in OV> 09/22/24 0949 DD/ 1605 TD/TT: 09/19/24 1616 Catalog Library Assistant: us Shireen Krishnan MD IMG US PROCEDURES Edited Result - Final * BI Mammogram Screening Tomosynthesis Bilateral (06/30/2024 10:15 AM EDT) Anatomical Region Laterality Modality Breast Bilateral Mammography 06/30/2024 10:1 5 AM EDT Narrative 07/06/2024 8:14 PM EDT [address] [place] [address] Mammography Report Signed Patient: Shireen Tavarez MR#: [id number] 1 : 1960 Acct:[id number] Age/Sex: 63 / F ADM Date: 06/30/24 Loc: HO.MAMMO Attending Dr: Shireen Krishnan MD Ordering Physician: Shireen Stout MD Re sults: 2Benign Findings Date of Service: 06/30/24 Follow Up: 1 Year From Orig inal Mammogram Procedure(s): MM tomosynthesis screening BI Accession Number(s): [id number] cc: Shireen Stout MD EXAMINATION: MM SCREENING [...] OV> 07/06/242010 DD/ 1015 TD/TT: 06/30/24 1029 Catalog Library Assistant: Procedure Note Donotuseinterpreter, Image - 07/06/[address] [place] [address] Mammography Report Signed Patient: Shireen TavarezMR#: [id number] 1 : 9Acct:[id number] Age/Sex: 63 / FADM Date: 06/30/24 Loc: HO.MAMMO Attending Dr: Shireen Krishnan MD Ordering Physician: Shireen Stout sults: 2Benign Findings Date of Service: 06/30/24Follow Up: 1 Year From Orig inal Mammogram Procedure(s): MM tomosynthesis screening BI Accession Number(s): [id number] cc: Shireen Stout MD EXAMINATION: MM SCREENING [...] OV> 07/06/242010 DD/ 1015 TD/TT: 06/30/24 1029 Catalog Library Assistant: Shireen Krishnan MD IMG BI PROCEDURES Edited Result - Final * Hepatitis C Antibody with Reflex to HCV, RNA, Quantitative, Real-Time PCR (02/28/2024 11:10 AM EST) Hepatitis C Antibody Nonreactive Nonreactive [facility] Comment:Antibodies to HCV no t detected; does not exclude early acuteHCV infection. Blood Venous blood specimen / Unknown 02/28/2024 11:10 AM EST 02/28/2024 11:10 AM EST Shireen Krishnan MD LAB BLOOD ORDERAB LES Final Result Performing Organization Address City/[facility]/ZIP Co de Phone Number [facility] [address] [place] [phone] * Lipid Panel, Standard (02/28/2024 11:10 AM EST) Triglycerides 132 <150 mg/dL [facility] Comment:Desirable Triglyceri de: less than 150 mg/dLBorderline High Triglyceride 150-199 mg/dLHigh Triglyceride: 200-499 mg/dLVery High Triglyceride: greater than or equal to 5OO mg/dL Cholesterol 128 <200 mg/dL [facility] Comment:Desirable Cholestero l: less than 200 mg/dLBorderline High Cholesterol: 200-239 mg/dLHigh Cholesterol: greater than 239 mg/dL LDL Cholesterol Calculated 56 <100 mg/dL [facility] Comment:Desirable LDL: less than 100 mg/dLNear Optimal/Above Optimal LDL: 110- 129 mg/dLBorderline High LDL: 130-159 mg/dLHigh LDL: 160-189 mg/dLVery High LDL: greater than or equal to 190 mg/dL HDL Cholesterol 46 >40 mg/dL [facility] Comment:Desirable HDL: great er than 40 mg/dL Note: This HDL assay may give artificially low results in patients with liver disease. Blood Venous blood specimen / Unknown 02/28/2024 11:10 AM EST 02/28/2024 11:10 AM EST us Shireen Krishnan MD LAB BLOOD ORDERAB LES Final Result Performing Organization Address City/[facility]/ZIP Co de Phone Number [facility] [address] [place] [phone] * Albumin, Random Urine W/Creatinine (02/28/2024 11:05 AM EST) Creatinine, Urine 80.33 mg/dL [facility] Microalbumin Urine <5.0 mg/L [facility] Microalbum Creatinine Ratio Ur TNP <30 ug/mg cr [facility] Comment:Unable to calculate albumin/creatinine ratio due to lowmicroalbumin or creatinine result. Urine (Urine, Random) 02/28/2024 11:05 AM EST 02/28/2024 12:03 PM EST us Shireen Krishnan MD LAB URINE ORDERAB LES Final Result [facility] [address] [place] [address] [phone] * HPV mRNA E6/E7 w/Reflex to HPV Genotypes 16, 18/45 (02/19/2023 10:03 AM EST) HPV nRNA E6/E7 Not Detected Not Detected [facility] Comment:Methodology: Transcr iption-Mediated AmplificationThis assay detects E6/E7 viral messenger RNA (mRNA) from 14high-risk HPV types (16,18,31,33,35,39,45,51,52,56,58,59,66,68).Cervical sources are required for HPV testing.If a vaginal source from a patient who has had atotal hysterectomy with removal of cervix wassubmitted, please contact the testing laboratoryfor alternative testing options.For additional information, please refer tohttp://education.[employer]/faq/SUK252e0(This link if provided for information/educational purposes only.)THIS TEST WAS PERFORMED AT:[facility] [place] [phone] AGUIRRE MD HPV mRNA E6/E7 TNP [facility] HPV 16 RNA TNP [facility] HPV 18/45 [facility] 02/19/2023 10:0 3 AM EST 02/20/2023 11:30 AM EST Wu Arroyo CNM LAB CYTOLOGY ORDERABLES F inal Result [facility] [address] [place] [phone] * Pap Smear (02/19/2023 10:03 AM EST) 02/19/2023 10:0 3 AM EST 02/20/2023 11:30 AM EST Narrative [facility] - 03/09/2023 12:47 PM EST ----- ------- Name: Shireen Tavarez Age/Sex: 62/F : 1960 Unit#: [id number] Attend Dr: WU ARROYO CNM Re02/19/23 Status: DEP REF Location: [facility]CLNP Disch: ----- ------- SPEC : [id number] RECD: 02/20/23 STATUS: LUCIA CALVERT NUM: [id number] NATALIE: 02/19/23-[address]: WU ARROYO CNM ENTERED: 02/20/23-1229 SP TYPE: Pap Smr OTHR DR: ORDERED: Pap Smear Interpretation Satisfactory for evaluation. Negative for intraepithelial lesion or malignancy. HPV mRNA E6/E7: NOT DETECTED This assay detects E6/E7 viral messenger RNA (mRNA) from 14 high-risk HPV types (16, 18, 31, 33, 35, 39, 45, 51, 52, 56, 58, 59, 66, 68) HPV testing performed by [facility], [place], [place]. See reference laboratory portion of the EMR for entire report. Clinical Information LMP: Postmenopausal Previous PAP test: 2017, ASCUS HPV neg Material Received ThinPrep-Cervical ----- ------- Signed (signature on file) [facility] [place] (ASCP) 03/09/23 1247 ----- ------- END OF REPORT Wu Arroyo CNM LAB CYTOLOGY ORDERABLES F inal Result [facility] [address] [place] [phone] * Colonoscopy (05/04/2016) Colonoscopy performed Historical Provider HEALTH MAINTENANCE Final Result from Last 3 Months or Most Recently Relevant to Health Maintenance Insurance [facility] [employer] (HMO D-SNP) YANCI ZAPATA [phone] Care Teams Maintenance Representative Relationship Specialty Start Date End Date Shireen Stout MD [address] [place] [phone] PCP - General Internal Medicine 09/08/22 [facility] 09/22/24
--- OUTSIDE RECORDS SUMMARY | 2024-12-11 11:54 | XMS_ITS | Encounter Summary ---
Author Organization [employer] Address [address] [place] [address] Care Team Providers Care Lathe Machine Operator Name Role Phone Shireen Stout MD Primary Care Pro vider Reason for Visit * Reason Comments Med Refill Encounter Details Date Type Department Care Team (Late st Contact Info) Description 01/16/2023 Refill [facility] MED & PEDS [address] [place], [place] [phone] Shireen Stout MD [address] [place] [address] Social History Tobacco Use Types Packs/Day Years [...] documented as of this encounter Care Teams Lathe Machine Operator Relationship Specialty Start Date End Date Shireen Stout MD [address] [place] [phone] PCP - General Internal Medicine 09/08/22 [facility] 09/22/24 documented as of this encounter
--- OUTSIDE RECORDS SUMMARY | 2024-12-11 11:54 | XMS_ITS | Encounter Summary ---
Author Organization [employer] Address [address] [facility] [address]t [place] [address] Care Team Providers Care Elementary Summer School Teacher Name Role Phone Shireen Stout MD Primary Care Pro vider Encounter Details Date Type Department Care Team (Latest Contact Info) Description 12/11/2024 Travel Social History Tobacco Use Types Packs/Day [...] documented as of this encounter Care Teams Elementary Summer School Teacher Relationship Specialty Start Date End Date Shireen Stotu MD [address] [place] [phone] PCP - General Internal Medicine 09/08/22 [facility] 09/22/24 documented as of this encounter
--- OUTSIDE RECORDS SUMMARY | 2024-12-11 11:54 | XMS_ITS | Encounter Summary ---
Author Organization [employer] Address [address] [place] [address] [address] [place] [address] Care Team Providers Care Parks Recreation Director Name Role Phone Shireen Stout MD Primary Care Pro vider Reason for Visit * Reason Comments Med Refill Encounter Details Date Type Department Care Team (Late st Contact Info) Description 01/10/2023 Refill [facility] [address] [place] [address] Tonja Guzmán, DIMAS Pulmonary emphysema, unspecified emphysema type (CMS/HCC) Social [...] documented as of this encounter Care Teams Parks Recreation Director Relationship Specialty Start Date End Date Shireen Stout MD [address] [place] [phone] PCP - General Internal Medicine 09/08/22 [facility] 09/22/24 documented as of this encounter
--- OUTSIDE RECORDS SUMMARY | 2024-12-11 11:54 | XMS_ITS | Encounter Summary ---
Author Organization [employer] Address [address] [facility] [address] [place] [address] Care Team Providers Care Natural Resources Extension Educator Name Role Phone Shireen Stout MD Primary Care Pro vider Reason for Visit * Reason Onset Date Comments Nurse Triage 12/03/2024 Encounter Details Date Type Department Care Team ([facility] st Contact Info) Description 12/03/2024 Telephone [facility] MEDICINE [address] [place] [address] Shireen Stout MD [address] [place] [address] Nurse Triage Social History Tobacco Use Types Packs/Day Years [...] encounter Miscellaneous Notes * Telephone Encounter - Patrica Mao RN - 12/03/2024 5:16 PM EDT Triage call to Ramona POWELL who reports Pt to have a UTI. Call to Pt with [facility] paste mixing supervisor [place] [id number]. Pt is speaking for Pt who is heard in the background answering questions. Pt urine has bad odor, Pt reports bladder pain and low back pain with urination and has frequency, denies blood in urine. Pt is having to bring Pt to the bathroom and reports Pt as being confused. Pt is going to have a hospital follow up apt 12/11/24 and has an AUD apt 12/05/24. Pt is offered WIC but, reports it would be too difficult to get Pt to WIC at this time. Pt is offered [facility] visit which reports would be good. and Pt agree with this disposition and plan. requests if visit will be later than 7pm to come in the morning instead. Shipfitters Supervisor did indicate that on INstead Pt request. Protocol Used: Urinary Symptoms (Adult) Protocol-Based Disposition: See in Office or Video Visit Today Video visit not offered Positive Triage Questions: * Side (flank) or lower back pain present * Bad or foul-smelling urine * Urinating more frequently than usual (i.e., frequency) OR new-onset of the feeling of an urgent need to urinate (i.e., urgency) * All higher-acuity triage questions were negative Care Advice Discussed: * Reasons To Call Back - Fever occurs - Pain or burning with urination - You become worse * Telephone Encounter - Nicolas Bautista - 12/03/2024 4:12 PM EDT Symptom: Urine Symptoms Outcome: Schedule an urgent appointment (within 4 hours) or talk to a nurse or provider soon Reason: Pain when passing urine (peeing) The caller accepted this outcome. Pt [place] soeaking Visiting nurse speaks algerian documented in this encounter Plan of Treatment Not on file documented as of this encounter Visit Diagnoses Not on filedocumented in this encounter Additional Health Concerns Assessment Noted Time PHQ-9 Depression Total Score: 11 025 9:44 AM EDT documented as of this encounter Care Teams Natural Resources Extension Educator Relationship Specialty Start Date End Date Shireen Stout MD [address] [place] [phone] PCP - General Internal Medicine 09/08/22 [facility] 09/22/24 documented as of this encounter
--- OUTSIDE RECORDS SUMMARY | 2024-12-11 11:55 | XMS_ITS | Continuity of Care Document ---
Author Name [facility] Address [address] [place] [address] Organization Unknown Address [address] [place] [address] Medications No known medications Problems No known problems
--- OUTSIDE RECORDS SUMMARY | 2024-12-11 11:55 | XMS_ITS | Encounter Summary ---
Author Organization [employer] Address [address] [facility] 7t [place] [address] Care Team Providers Care Test Man Name Role Phone Shireen Stout MD Primary Care Pro vider Reason for Visit * Reason Comments Med Refill Encounter Details Date Type Department Care Team (Late st Contact Info) Description 07/27/2023 Refill [facility] CHC MED & PEDS [address] [place], [place] [phone] Shireen Stout MD [address] [place] [address] Diabetic peripheral neuropathy associated with type 2 [...] neuropathy associated with type 2 diabetes mellitus (CMS/[facility]) documented in this encounter Additional Health Concerns Assessment Noted Time PHQ-9 Depression Total Score: 5 12/16/19 23 2:02 PM EDT documented as of this encounter Care Teams Test Man Relationship Specialty Start Date End Date Shireen Stout MD [address] [place] [phone] PCP - General Internal Medicine 09/08/22 [facility] 09/22/24 documented as of this encounter
--- OUTSIDE RECORDS SUMMARY | 2024-12-11 11:55 | XMS_ITS | Encounter Summary ---
Author Organization [employer] Address [address] [facility] 7t [place] [address] Care Team Providers Care Laboratory Cureman Name Role Phone Shireen Stout MD Primary Care Pro vider Reason for Visit * Reason Comments Med Refill Encounter Details Date Type Department Care Team (Late st Contact Info) Description 07/27/2023 Refill [facility] CHC MED & PEDS [address] [place], [place] [phone] Shireen Stout MD [address] [place] [address] Diabetic peripheral neuropathy associated with type 2 [...] neuropathy associated with type 2 diabetes mellitus (CMS/[facility]) documented in this encounter Additional Health Concerns Assessment Noted Time PHQ-9 Depression Total Score: 5 12/16/19 23 2:02 PM EDT documented as of this encounter Care Teams Laboratory Cureman Relationship Specialty Start Date End Date Shireen Stout MD [address] [place] [phone] PCP - General Internal Medicine 09/08/22 [facility] 09/22/24 documented as of this encounter
[2024-12-11 13:35] LABS: MANUAL DIFF FLAG NO
[2024-12-11 13:40] LABS: Hematocrit 32.1 % (37.0-47.0); Hemoglobin 10.4 g/dl (12.0-16.0); Imm Gran Abs Auto 0.03 X10*3/uL (0.00-0.03); Imm Gran Pct Auto 0.5 % (0.0-0.4); Lymphocytes Absolute Auto 1.4 X10*3/uL (1.2-4.9); Mean Corpuscular HGB Conc 32.4 g/dl (31.0-35.0); Mean Corpuscular Hemoglobin 30.8 pg (27.0-33.0); Mean Corpuscular Volume 95.0 fL (80.0-98.0); NRBC Abs Auto 0.000 X10*3/uL (0.0-0.012); NRBC Pct Auto 0.0 /100WBC (0.0-0.2); Platelet Count 199 X10*3/uL (160-400); Red Blood Count 3.38 X10*6/uL (4.20-5.50); White Blood Count 5.6 X10*3/uL (4.8-10.8)
[2024-12-11 13:58] LABS: Anion Gap 11 (12-20); Blood Urea Nitrogen 5 mg/dL (9-16); Calcium 9.2 mg/dL (8.4-10.2); Carbon Dioxide 31 mmol/L (22-29); Chloride 106 mmol/L (96-108); Estimated Glomerular Filt Rate > 60; Potassium 3.6 mmol/L (3.3-5.1); Sodium 144 mmol/L (135-145)
== END 2024-12-11 10:32 | disposition home or self-care (01) ==
LOC: HO.HHCL 10:31
PROVIDERS: PCP Student in an Organized Health Care Education/Training Program; Visit Provider Family Medicine
DX: M79.89 Other specified soft tissue disorders (principal); K70.30 Alcoholic cirrhosis of liver without ascites; I10 Essential (primary) hypertension; E55.9 Vitamin D deficiency, unspecified
CPT/HCPCS: 36415; 80048; 82306; 83880; 84443; 85025

== ENCOUNTER 2024-12-18 09:25 | Outpatient (AMB) | payer OTHER, SELFPAY ==
--- OUTSIDE RECORDS SUMMARY | 2024-11-19 12:16 | XMS_ITS | Continuity of Care Document ---
Author Organization [facility] Address [address] [place] [phone] Phone Care Team Providers Care Visual Merchandising Associate Name Role Phone Wilian ANTHONY, Tierney Unavailable [...] Reason(s) For Visit Diagnoses Date Provider [facility], [address] [place] [address], [id number], tel: [phone] [facility] [place] No Information 5 Wilian Monet. [address] [place] [address], [id number], [place]. tel: [phone] [facility] [address] [place] [address], [id number], [place] tel: [phone] [facility] [place] Abnormal mammogram 7 [facility] Field Artillery Fire Control Man. [facility] [place], [address], [place]. tel: [phone] [facility], [address] [place] [address], [id number], [place] tel: [phone] [facility] [place] colon cancer screen (chief complaint)h ypertension (chief complaint)p ap test (chief complaint)m ammogram (chief complaint) Encounter for screening for respiratory tuberculosisBody mass index (BMI) 40.0-44.9, adultCervical cancer screeningOther screening mammogramColon cancer screeningBorderline systolic HTN 7 Osuji Nonyerem. [address], [place], [place], [facility], [place]. tel: [phone] [facility], [address], [place], [place], [id number], [place] tel: [phone] [facility] [place] No Information 7 [facility] Nurses. [address] [place], [address], [place]. tel: [phone] [facility], [address], [place], [place], [id number], tel: [phone] [facility] [place] General follow up (chief complaint)h ypertension (chief complaint)d iabetes/thy roid screen (chief complaint)m ammogram (chief complaint) Body mass index (BMI) 38.0-38.9, adultBorderline systolic HTNScreening for diabetes mellitusScreening for thyroid disorderOther screening mammogram 7 Osuji Nonyerem. [address], [place], [place], [facility], [place]. tel: [phone] [facility], [address], [place], [place], [id number], [place] tel: [phone] [facility] [place] No Information 6 Osuji Nonyerem. [address], [place], [facility], [place]. tel: [phone] [facility], [address], [place], [place], [id number], [place] tel: [phone] [facility] [place] Physical (chief complaint)p reventive exam (chief complaint)r josiah (chief complaint)B P check (chief complaint) Body mass index (BMI) 40.0-44.9, adultEncounter for preventative adult health care exam with abnormal findingsScreening for diabetes mellitusScreening for thyroid disorderElevated blood-pressure reading, without diagnosis of hypertensionPsoriasis 6 Wilian Guzmanmattie. [address] [employer] [place], [address], [place]. tel:[phone] Family History Family Member Type Diagnosis Age At Onset No Information Payers Payer name Insurance type Covered republican ID Authoriza tion(s) No Information Social History [...] October 2016 Related to Other screening mammogram Dietary management e ducation, guidance, and counseling [...] use as directe d Related to Psoriasis D and E; goal BMI<25 Counseled regarding [...]
--- OUTSIDE RECORDS SUMMARY | 2024-12-11 09:30 | XMS_ITS | Encounter Summary ---
Author Organization [employer] Address [address] [place] [address] 7[address] [place] [address] Care Team Providers Care Lobster Man Name Role Phone Shireen Stout MD Primary Care Pro vider Encounter Details Date Type Department Care Team (Late st Contact Info) Description 12/11/2024 9:30 AM EDT Office Visit [facility] [address], [place] [phone] Lisa Mccurdy MD [address] [place], [place] [phone] Essential hypertension (Primary Dx); Alcoholic cirrhosis, unspecified whether ascites present (CMS/HCC); Alcohol use disorder, severe, dependence (CMS/HCC); Pulmonary emphysema, unspecified emphysema type (CMS/HCC); Diabetic peripheral neuropathy associated with type 2 diabetes mellitus (CMS/HCC); Moderate recurrent major depression (CMS/HCC); OAB (overactive bladder); Diabetes mellitus type 2, insulin dependent (CMS/HCC); Leg swelling; Vitamin D deficiency; Depressive disorder Social History Tobacco Use Types Packs/Day Years [...] Sign Reading Time Taken Comments Blood Pressure 110/64 12/11/2024 9:42 AM EDT Pulse 88 12/11/2024 9:42 AM EDT Temperature 36.6 C (97.8 F) 12/11/2024 9:42 AM EDT Respiratory Rate 22 12/11/2024 9:42 AM EDT Oxygen Saturation 96% 12/11/2024 9:42 AM EDT Inhaled Oxygen Concentration - - Weight 69.4 kg (153 lb) 12/11/2024 9:42 AM EDT Height 154.9 cm (5' 1 ) 12/11/2024 9:42 AM EDT Body Mass Index 28.91 12/11/2024 9:42 AM EDT documented in this encounter Progress Notes * Lisa Mccurdy MD - 12/11/2024 9:30 AM EDT Virginia Tavarez is a 64 y.o. female who has hypertension, diabetes mellitus type 2, cirrhosis, and COPD on supplemental O2, and patient presents for follow up of chronic conditions. Background: Problem List[1] Last PCP visit on 08/23/24. A1c 8.4%. Patient is following with quotation clerk. Has not started insulin yet. Increase gabapentin to 300 mg twice daily. Recommended to discuss with index clerk in regards to aspirin in the setting of her cirrhosis. Patient was still drinking alcohol. Hospitalizations [facility] (from 09/28/2024 to 10/21/2024) Patient presented to [facility] ED with altered mental status. Hypoglycemia. 45 mg/dl. Hospital course was complicated by prolonged encephalopathy. Started on empiric thiamine for AUD. Later diagnosed withneuro-Lyme. Started on ceftriaxone, then switched to doxycyline. Completed three weeks of therapy for neuro-Lyme. Started on lorazepam for suspected catatonia with improvement, then tapered off. Diabe best was managed with insulin glargine and sliding scale. Discharged to rehab. [facility] (11/11/24-11/13/24) Patient brought in from nursing facility due to severe upper abdominal pain associated with nausea,vomiting, sweating. Patient found to have UTI and treated with ceftriaxone. Urine culture grew E. coli sensitive to ampicillin, ciprofloxacin and TMP/SMX. Discharged on cefuroxime. Patient also foundto have uterine mass on CT and US. Manager Vehicle consulted, endometrial biopsy performed at bedside. Patient to follow up with gynecology for results and further workup. Seen by Dr. Nunn, [facility], on 11/26/2024 for follow-up of her endometrial biopsy. The biopsy result was benign. Recommended to evaluate with transvaginal ultrasound for better characterization of the mass. [facility] (10/21/24 - 11/28/24) Patient worked with therapy to regain strength. Started on tizanidine, muscle rub and diclofenac gel for lower leg soreness. Patient stable for discharge home. PreHDF note was completed by our pharmacist on 12/05/24. Issues to be addressed as following: - Vitamin D supplement. Currently on weekly high-dose. Discharge summary 2000 units daily. - OAB medication. Currently on Mirabegron. Oxybutyinin on discharge summary. - Trazodone dose. Currently on Trazodone 200 mg at bedtime. Discharge summary 100 mg at bedtime. Last AUD clinic visit with Dr. Avila on 12/05/2024. Tapering off naltrexone. Today: Patient is here with her caregiver, daughter in law. Patient states she is not taking too many medications. Patient perceives that she is still taking metformin because a giant pill which looks like metformin. Patient reports frequent bowel movement. Patient is concerned about leg swelling. Patient reports no excessive sodium consumption. Patient stopped drinking alcohol. Her last drink was September 09, 2024. Her caregiver noticed patient seems more confused especially after taking her medications. Patient is oxygen dependent. She reports her respiratory function is at baseline. Her caregiver states she is unable to stand for prolonged time, and she would like to have a showerextension so that she can safely take shower. Her caregiver is planning to reschedule her appointment with her GI. Patient has transvaginal ultrasound scheduled in January. Review of Systems Constitutional: Negative for activity change, appetite change and fever. Respiratory: Positive for shortness of breath. Negative for cough, chest tightness and wheezing. Cardiovascular: Positive for leg swelling. Negative for chest pain. Objective Vitals: 12/11/24 0942 BP: 110/64 BP Location: Left arm Patient Position: Sitting BP Cuff Size: Adult Pulse: 88 Resp: 22 Temp: 97.8 ??F (36.6 ??C) TempSrc: Oral SpO2: 96% Weight: 153 lb (69.4 kg) Height: 5' 1 (1.549 m) Physical Exam Constitutional: General: She is awake. Appearance: She is well-groomed. Comments: Chronically ill-appearing. Initially not using oxygen. Started using oxygen when she started feeling dyspneic. Somewhat confused (I am not familiar with her baseline). Cardiovascular: Rate and Rhythm: Normal rate and regular rhythm. Heart sounds: Normal heart sounds. Pulmonary: Breath sounds: Decreased air movement present. Decreased breath sounds present. No wheezing, rhonchi or rales. Comments: On supplemental oxygen Musculoskeletal: Right lower le+ Edema present. Left lower le+ Edema present. Psychiatric: Behavior: Behavior is cooperative. Results: Lab Results Component Value Date HGBA1C 5.7 12/11/2024 MICROALBUR <5.0 02/28/2024 CREATUR 80.33 02/28/2024 MICROALBCREU TNP 02/28/2024 Assessment/Plan Problem List Items Addressed This Visit Alcoholic cirrhosis (CMS/HCC) Congratulated on 3 months of abstinence from alcohol Recommended to reschedule appointment with her GI Last PCP's note at the following: -MRA (MR ANGIOGRAPHY) 2018: No evidence of [...] see on most recent chest CT from 2018 however can be seen on older chest [...] need surveillance with image f up -gave todayto pt copy of abd US report -pt on acamprosate ,reports decrease alcohol intake of beers but still drinking aprox3 from 6 cans a day last month -discussed in length importance to decrease alcohol consumption Relevant Orders CBC auto differential (Completed) Depressive disorder Relevant Medications She has been taking trazodone 100 mg when she was in the senior care. When she was discharged, sherestarted taking 200 mg. We agreed to decrease trazodone dose to 100 mg since patient appeared confused to her caregiver. traZODone (Desyrel) 100 MG tablet Diabetic peripheral neuropathy associated with type 2 diabetes mellitus (CMS/HCC) She started her insulin therapy when she was hospitalized and is doing well. However, she may be developing hypoglycemia. Will check if she can receive a CGM. Patient has glucagon. Last PCPs note at the following: Pt w DM2 -insulin dependent w neuropathy Pt is on rapid insulin 220 u in am only and invokana 10/2022 hb1AC is 7.9<---8.9-elevated Gl at 259 .microalb neg , LDL 66 -unsure why pt is not on basal insulin? --I called to her quotation clerk-Dr Diamond at # [phone] previous visit to discuss case. I left my cell phone x a call back but not received a call .,From last endo note -pt was seen in 08/16/2022 and it was mentioned of 220 u in am but dont see recs forinsulin at any other time of the day ,there is mention of nocturnal hypoglycemia ,also is note pt was offered insulin pump but pt refused. -pt has f up apt w quotation clerk tomorrow and advised to discuss about basal insulin ? - chaser apprentice 11/2022 mild non proliferative diabetic retinopathy to f in 6 mo -referred to returned goods receiving clerk today Relevant Medications traZODone (Desyrel) 100 MG tablet Essential hypertension - Primary BP is controlled on ARBs -echo 2016 : EF between 55-60 %.Normal -nuclear stress test 2016: without EKG changes meeting criteria for ischemia. -cardiac cath 2016: non obstructive CAD -EKG today : NSR, TWI in V2 only ,slight ventricular conduction delay ,repolarization disturbance.QTC 466, HR 74x' 10/2022 Microalb neg - chaser apprentice 11/2022 Mild non proliferative diabetic retinopathy to f up in 6 mo -continue BP meds Relevant Orders Basic Metabolic Panel (Completed) Alcohol use disorder, severe, dependence ([facility]) Relevant Medications Patient is tapering off naltrexone. She has been in early maintenance phase of recovery process Pulmonary emphysema ([facility]) Continue current treatment plan per PCP Vitamin D deficiency Relevant Orders Vitamin D, 25-Hydroxy, Total, Immunoassay (Completed) Moderate recurrent major depression ([facility]) Relevant Medications traZODone (Desyrel) 100 MG tablet OAB (overactive bladder) - Patient has been on mirabegron prior to hospitalization. During the hospitalization and senior care stay, it was changed to oxybutynin. - Will resume mirabegron since oxybutynin is anticholinergic and may worsen her cognition. Diabetes mellitus type 2, insulin dependent ([facility]) - A1C 5.7%, well-controlled. Concern for hypoglycemia. - Will check if patient can get CGM. - Continue current insulin therapy - No longer on metformin, although patient perceived that she was on metformin. According to the pharmacist, the biggest pill in her medbox is calcium. - follow up with PCP Relevant Orders POCT Hgb A1c (Completed) POCT Glucose (Completed) Other Visit Diagnoses Leg swelling Patient states she has compression stocking, but difficult to wear. Advised her to schedule appointment with GI. Will check lab and consider adding diuretics if renal function and electrolytes are normal Continue low-sodium diet Leg elevation Will consider ultrasound evaluation Relevant Orders TSH with Reflex to Free T4 (Completed) NT-proBNP Addendum on 12/12/24 Her stated that they are comfortable with current glucose monitoring at this time, and declined CGM. Addendum on 12/13/24 proBNP is elevated. Reviewing meditech, patient recently had echocardiogram at [facility]. She has index clerk, Dr. Malcolm. Echocardiogram on 11/12/2024: LVEF 42%. Inferoseptal wall and basal inferior segment are hypokinetic. No obvious valvular pathology. Will check when her next follow up appointment is, and request a sooner appointment if it is not within 1 mo. Will start SGLT2i and loop diuretic. Because of cirrhosis, A1C may be falsely low. Will ask about CGM again. Will consider decreasing her basal insulin if her BG is low (it was high in the office, but low A1C). Allergies[2] Current Outpatient Medications Medication Instructions albuterol 108 (90 Base) MCG/ACT inhaler 2 puffs, Inhalation, Every 6 hours PRN ammonium lactate (Amlactin) 12 % cream Topical, Every 12 hours Aspirin EC Adult Low Dose 81 MG EC tablet atorvastatin (LIPITOR) 40 mg, Oral, Nightly Baqsimi One Pack 3 MG/DOSE nasal powder See Instructions, 3 mg Once To be use for hypoglycemic emergency by family member or accompanying person, if blood glucoses less than 60 and unconscious. Please call 911 after use of glucagon. E11.9, # 1 each, 0 Refills, Soft Stop, 06/18/24 12:20:00 PM EDT, [facility], Partial fill upon patient request if the prescription is for a schedule II opioid drug., 156, cm, 06/18/24 9:02:00 EDT, Height benzonatate (Tessalon) 200 MG capsule TAKE 1 CAPSULE BY MOUTH TWICE DAILY NEEDED FOR COUGH cetirizine (ZYRTEC) 10 mg, Oral, Every morning cholecalciferol (VITAMIN D-3) 50 mcg, Oral, Daily Diclofenac Sodium 1 % gel 1 Application, Apply externally, Daily PRN docusate sodium (COLACE) 100 mg, Oral, 2 times daily PRN EPINEPHrine (EPIPEN) 0.3 mg, Injection, Once as needed, Inject into upper leg. Call 911 after use. fenofibrate micronized (LOFIBRA) 134 mg, Oral, Every evening Ferrous Sulfate (iron) 325 (65 Fe) MG tablet TAKE 1 TABLET BY MOUTH EVERY MORNING ON SUNDAY, SUNDAY AND SUNDAY Fluticasone-Salmeterol 100-50 MCG/ACT aerosol powder INHALE 1 PUFF BY MOUTH TWICE DAILY. RINSE MOUTH AFTER USING. folic acid (FOLVITE) 1,000 mcg, Oral, Every morning gabapentin (NEURONTIN) 300 mg, Oral, 2 times daily glucose blood (FREESTYLE LITE) test strip Check by fingerstick route 1-2 times daily INSULIN LISPRO, 1 UNIT DIAL, SC 5-15 units 3 times a day before meals; 100 - 149 5 units, 150 - 1997 units 200 - 249 9 units 250 - 299 11 units 300 - 349 13 units 350 - 399 15 units insulin pen needle (BD Pen Needle Short Ultrafine) 31G X 8 mm misc USE DIRECTED WITH INSULIN ketotifen (Zaditor) 0.025 % ophthalmic solution Instill 1 drop in each eye twice daily Lantus SoloStar 30 Units, Nightly linaCLOtide (LINZESS) 72 mcg, Daily before breakfast losartan (COZAAR) 25 mg, Oral, Every morning Myrbetriq 25 MG 24 hr tablet TAKE 1 TABLET BY MOUTH EVERY MORNING DO NOT BREAK, CRUSH, DISSOLVE OR CHEW Oyster Shell Calcium 500 MG tablet TAKE 1 TABLET BY MOUTH TWICE DAILY IN THE MORNING AND IN THE EVENING WITH MEALS pantoprazole (ProtoNix) 20 MG EC tablet TAKE 1 TABLET BY MOUTH TWICE DAILY IN THE MORNING AND IN THE EVENING Reguloid 28.3 % powder TAKE 1 TABLESPOONFUL IN FULL GLASS OF WATER ONCE DAILY NEEDED FOR CONSTIPATION sertraline (ZOLOFT) 50 mg, Oral, Every morning thiamine (VITAMIN B-1) 100 mg, Oral, Every morning tiZANidine (Zanaflex) 2 MG tablet 2 tablets, 2 times daily traZODone (DESYREL) 100 mg, Oral, Nightly TRUEplus Lancets 33G misc Does not apply, Test blood sugar twice daily as directed Follow-up: With PCP in 1 mo or sooner if any problem arises. [1] Patient Active Problem List Diagnosis Alcoholic cirrhosis (CMS/HCC) Allergic rhinitis Constipation Depressive disorder Diabetic peripheral neuropathy associated with type 2 diabetes mellitus (CMS/HCC) Dysphagia Essential hypertension Mixed hyperlipidemia Moderate persistent asthma Alcohol use disorder, severe, dependence (CMS/HCC) Pulmonary emphysema (CMS/HCC) Osteoporosis Obesity Non-toxic multinodular goiter Stage 2 chronic kidney disease Smoker Health care maintenance Left leg pain Left knee pain Food allergy, peanut Anemia Acute vaginitis Alcoholic fibrosis and sclerosis of liver Vitamin D deficiency Moderate recurrent major depression (CMS/HCC) OAB (overactive bladder) Diabetes mellitus type 2, insulin dependent (CMS/HCC) [2] Allergies Allergen Reactions Jimmy Inhibitors Apple Juice Other reaction(s): Cough, scratchy throat Romero Peanut Butter Flavoring Agent (Non-Screening) Hives and Swelling Other reaction(s): Trouble Breathing, itchy throat Prunus Persica documented in this encounter Miscellaneous Notes * Assessment & Plan Note - Lisa Mccurdy MD - 12/11/2024 6:13 PM EDTAssociated Problem(s): OAB (overactive bladder) - Patient has been on mirabegron prior to hospitalization. During the hospitalization and senior care stay, it was changed to oxybutynin. - Will resume mirabegron since oxybutynin is anticholinergic and may worsen her cognition. * Assessment & Plan Note - Lisa Mccurdy MD - 12/11/2024 6:11 PM EDTAssociated Problem(s): Alcoholic cirrhosis (CMS/HCC) -MRA (MR ANGIOGRAPHY) 2018: No evidence of [...] need surveillance with image f up -gave todayto pt copy of abd US report -pt on acamprosate ,reports decrease alcohol intake of beers but still drinking aprox3 from 6 cans a day last month -discussed in length importance to decrease alcohol consumption * Assessment & Plan Note - Lisa Mccurdy MD - 12/11/2024 6:11 PM EDTAssociated Problem(s): Diabetes mellitus type 2, insulin dependent ([facility]) - A1C 5.7%, well-controlled. Concern for hypoglycemia. - Will check if patient can get CGM. - Continue current insulin therapy - No longer on metformin, although patient perceived that she was on metformin. According to the pharmacist, the biggest pill in her medbox is calcium. - follow up with PCP * Assessment & Plan Note - Lisa Mccurdy MD - 12/10/2024 4:58 PM EDTAssociated Problem(s): Diabetic peripheral neuropathy associated with type 2 diabetes mellitus ([facility]) Pt w DM2 -insulin dependent w neuropathy Pt is on rapid insulin 220 u in am only and invokana 10/2022 hb1AC is 7.9<---8.9-elevated Gl at 259 .microalb neg , LDL 66 -unsure why pt is not on basal insulin? --I called to her quotation clerk-Dr Diamond at # [phone] previous visit to discuss case. I left my cell phone x a call back but not received a call .,From last endo note -pt was seen in 08/16/2022 and it was mentioned of 220 u in am but dont see recs forinsulin at any other time of the day ,there is mention of nocturnal hypoglycemia ,also is note pt was offered insulin pump but pt refused. -pt has f up apt w quotation clerk tomorrow and advised to discuss about basal insulin ? - chaser apprentice 11/2022 mild non proliferative diabetic retinopathy to f in 6 mo -referred to returned goods receiving clerk today * Assessment & Plan Note - Lisa Mccurdy MD - 12/10/2024 4:57 PM EDTAssociated Problem(s): Essential hypertension BP is controlled on ARBs -echo 2016 : EF between 55-60 %.Normal -nuclear stress test 2016: without EKG changes meeting criteria for ischemia. -cardiac cath 2016: non obstructive CAD -EKG today : NSR, TWI in V2 only ,slight ventricular conduction delay ,repolarization disturbance.QTC 466, HR 74x' 10/2022 Microalb neg - chaser apprentice 11/2022 Mild non proliferative diabetic retinopathy to f up in 6 mo -continue BP meds documented in this encounter Plan of Treatment Not on file documented as of this encounter Procedures Procedure Name Priority Date/Time Associated Diagnosis Comments VITAMIN D,25-OH,TOTAL,IA Routine 12/11/2024 11:04 AM EDT Vitamin D deficiency TSH W/REFLEX TO FT4 Routine 12/11/2024 1 1:04 AM EDT Leg swelling NT-PROBNP Routine 12/11/2024 11:04 AM EDT Leg swelling CBC WITH AUTO DIFFERENTIAL Routine 12/11/2024 11:04 AM EDT Alcoholic cirrhosis, unspecified whether ascites present (CMS/HCC) BASIC METABOLIC PANEL Routine 12/11/2024 11:04 AM EDT Essential hypertension POCT GLYCATED HEMOGLOBIN, TOTAL Routine 12/11/2024 9:46 AM EDT Diabetes mellitus type 2, insulin dependent (CMS/HCC) POCT GLUCOSE Routine 12/11/2024 9:44 AM EDT Diabetes mellitus type 2, insulin dependent (CMS/HCC) documented in this encounter Results * (ABNORMAL) NT-proBNP (12/11/2024 11:04 AM EDT) NT-proBNP 517(A) <125 pg/mL [facility] Comment:THIS TEST WAS PERFOR MED AT:[facility] [place] [id number] AGUIRRE MD Venous blood specimen / Unknown 12/11/2024 11:04 AM EDT 12/11/2024 1:16 PM EDT Lisa Mccurdy MD LAB BLOOD ORDERABLES Final Resul t [facility] [address] [place] [phone] * Vitamin D, 25-Hydroxy, Total, Immunoassay (12/11/2024 11:04 AM EDT) Vitamin D 25-OH Total 36.6 >30 ng/mL [facility] Comment: Health Based Reference Values*< 20 ng/mL [id number] ng/mL Insufficient> 30 ng/mL Sufficient*Acosta BERMUDEZ. N Engl J Med. 2007;357:266-280There is no well-established upper level of normal vitamin Dlevels. Some laboratories use 50 ng/mL as an upper limit ofnormal. However, toxicity is patient-dependent and may occurat any level. Careful correlation with the patient'spresentation is necessary and, if there is concern forvitamin D toxicity, treatment should be consideredirrespective of the serum level.Care must be taken in interpreting Vitamin D [...] LC-MS/MS. Blood Venous blood specimen / Unknown 12/11/2024 11:04 AM EDT 12/11/2024 1:28 PM EDT Lisa Mccurdy MD LAB BLOOD ORDERABLES Final Resul t [facility] [address] [place], [place] [phone] * (ABNORMAL) CBC auto differential (12/11/2024 11:04 AM EDT) White Blood Count 5.6 4.8 - 10.8 X10*3/uL [facility] Red Blood Count 3.38(L) 4.20 - 5.50 X10*6/uL [facility] Hemoglobin 10.4(L) 12.0 - 16.0 g/dl [facility] Hematocrit 32.1(L) 37.0 - 47.0 % [facility] Mean Corpuscular Volume 95.0 80.0 - 98.0 fL [facility] Mean Corpuscular Hemoglobin 30.8 27.0 - 33.0 pg [facility] Mean Corpuscular HGB Conc 32.4 31.0 - 35.0 g/dl [facility] Red Cell Distribution Width 15.6 11.0 - 16.0 % [facility] Platelet Count 199 160 - 400 X10*3/uL [facility] Mean Platelet Volume 10.1 9.4 - 12.3 fL [facility] Neutrophils Percent Auto 65.0 45 - 73 % [facility] Imm Gran Pct Auto 0.5(H) 0.0 - 0.4 % [facility] Lymphocytes Percent Auto 25.4 20 - 40 % [facility] Monocytes Percent Auto 6.6 2 - 11 % [facility] Eosinophils Percent Auto 2.0 0 - 4 % [facility] Basophils Percent Auto 0.5 0 - 2 % [facility] NRBC Pct Auto 0.0 0.0 - 0.2 /100WBC [facility] Neutrophils Absolute Auto 3.6 2.0 - 8.3 x10*3/uL [facility] Imm Gran Abs Auto 0.03 0.00 - 0.03 X10*3/uL [facility] Lymphocytes Absolute Auto 1.4 1.2 - 4.9 X10*3/uL [facility] Monocytes Absolute Auto 0.4 0.1 - 1.2 X10*3/uL [facility] Eosinophils Absolute Auto 0.1 0.0 - 0.4 X10*3/uL [facility] Basophils Absolute Auto 0.0 0.0 - 0.2 X10*3/uL [facility] NRBC Abs Auto 0.000 0.0 - 0.012 X10*3/uL [facility] Blood Venous blood specimen / Unknown 12/11/2024 11:04 AM EDT 12/11/2024 1:28 PM EDT Lisa Mccurdy MD LAB BLOOD ORDERABLES Final Resul t Performing Organization Address [facility] Co de Phone Number [facility] [address] [place] [phone] * TSH with Reflex to Free T4 (12/11/2024 11:04 AM EDT) TSH reflex Free T4 0.39 0.32 - 4.0 uIU/mL [facility] Blood 12/11/2024 11:0 4 AM EDT 12/11/2024 1:28 PM EDT Lisa Mccurdy MD LAB BLOOD ORDERABLES Final Resul t Performing Organization Address [facility] Co de Phone Number [facility] [address] [place] [phone] * (ABNORMAL) Basic Metabolic Panel (12/11/2024 11:04 AM EDT) Sodium 144 135 - 145 mmol/L [facility] Potassium 3.6 3.3 - 5.1 mmol/L [facility] Chloride 106 96 - 108 mmol/L [facility] Carbon Dioxide 31(H) 22 - 29 mmol/L [facility] Anion Gap 11(L) 12 - 20 [facility] Urea Nitrogen (BUN) 5(L) 9 - 16 mg/dL [facility] Creatinine, Serum 0.56 0.5 - 1.4 mg/dL [facility] Estimated Glomerular Filt Rate >60 [facility] Comment:Chronic Kidney Disea se: Estimated GFR < 60 mL/min/1.64h3Eeyyaw Kidney Disease: Estimated GFR < 15 mL/min/1.73m2 Glucose 182(H) 60 - 115 mg/dL [facility] Calcium 9.2 8.4 - 10.2 mg/dL [facility] Blood Venous blood specimen / Unknown 12/11/2024 11:04 AM EDT 12/11/2024 1:28 PM EDT Lisa Mccurdy MD LAB BLOOD ORDERABLES Final Resul t [facility] [address] [place] [phone] * POCT Hgb A1c (12/11/2024 9:46 AM EDT) Hemoglobin A1C 5.7 4.0 - 5.7 % QC Media Lot # [id number] Lot# Expiration Date [id number] Blood 12/11/2024 9:46 AM EDT Lisa Mccurdy MD POINT OF CARE TEST ENTER/EDIT OR DERABLES Final Result * (ABNORMAL) POCT Glucose (12/11/2024 9:44 AM EDT) Glucose Blood, POC 264(A) 60 - 200 mg/dL QC Media Lot # [id number] Lot# Expiration Date ,72 Blood Capillary blood specimen / Unknown 12/11/2024 9:44 AM EDT Lisa Mccurdy MD POINT OF CARE TEST ENTER/EDIT OR DERABLES Final Result documented in this encounter Visit Diagnoses Diagnosis Essential hypertension- Primary Unspecified essential hypertension Alcoholic cirrhosis, unspecified whether ascites present (CMS/HCC) Alcohol use disorder, severe, dependence ([facility]) Pulmonary emphysema, unspecified emphysema type ([facility]) Diabetic peripheral neuropathy associated with type 2 diabetes mellitus ([facility]) Moderate recurrent major depression ([facility]) Major depressive disorder, recurrent episode, moderate OAB (overactive bladder) Diabetes mellitus type 2, insulin dependent ([facility]) Leg swelling Swelling of limb Vitamin D deficiency Depressive disorder Depressive disorder, not elsewhere classified documented in this encounter Additional Health Concerns Assessment Noted Time PHQ-9 Depression Total Score: 11 025 9:44 AM EDT documented as of this encounter Care Teams Lobster Man Relationship Specialty Start Date End Date Shireen Stout MD [address] [place] [phone] PCP - General Internal Medicine 09/08/22 [facility] 09/22/24 documented as of this encounter
--- NOTE | 2024-12-18 09:37 | A.OFFVIS_ITS ---
Intake Visit Reasons: Left knee pain Intake Note: Shireen is a 64 year old woman who presents with complaints of left knee pain. She was given a cortisone injection at her last visit which gave her fairly good relief. Her pain has returned. She has tried Tylenol which gives her mild relief. She wishes to hold off on surgery if at all possible. Allergies cornflower (Cornflower) Allergy (Unknown, Verified 12/18/24 09:38) ITCHY EYES/HIVES peach (PEACH) Allergy (Unknown, Verified 12/18/24 09:38) NATURAL FRUIT - MOUTH ITCHES cornell (cherries) Allergy (Verified 12/18/24 09:38) Unknown No Known Drug Allergies Allergy (Verified 12/18/24 09:38) none apples Allergy (Unknown, Uncoded 12/18/24 09:38) Unknown peanut Allergy (Unknown, Uncoded 12/18/24 09:38) Unknown Medication List - Last Reconciled 12/18/24 by Geo Tomlinson MD albuterol sulfate 90 mcg/actuation (Ventolin HFA) 2 puffs inhalation Q6H PRN atorvastatin 40 mg PO BEDTIME blood pressure test kit-large As directed blood sugar diagnostic (FreeStyle Test strips) 4 times a day blood-glucose meter (FreeStyle Hunter Lite kit) As directed calcium carbonate 500 mg PO BID cefuroxime axetil 500 mg PO BID cetirizine 10 mg PO QAM ergocalciferol (vitamin D2) 1,250 mcg PO Q7D fenofibrate micronized 134 mg PO QPM ferrous sulfate (FeroSul) 325 mg PO MOWEFR flash glucose scanning reader (FreeStyle Lakeisha 2 Strawberry) As directed flash glucose sensor (FreeStyle Lakeisha 2 Sensor kit) every 14 days folic acid 1 mg PO DAILY gabapentin 300 mg PO BID insulin glargine (Lantus Solostar U-100 Insulin) units subcut insulin lispro subcut insulin regular hum U-500 conc (Humulin R U-500 (Conc) Insulin Kwikpen) 250 units before breakfast ; 30 days lancets (FreeStyle Lancets) As directed lancets (TRUEplus Lancets) As directed linaclotide (Linzess) 72 mcg PO QAM losartan 25 mg PO QAM mirabegron ER (Myrbetriq) 25 mg PO QAM naltrexone 50 mg PO QAM nebulizers As directed Oxygen Home Use As directed pantoprazole 20 mg PO BID pen needle, diabetic (BD Ultra-Fine Debbie Pen Needle) As directed once a day sertraline (Zoloft) 50 mg PO DAILY thiamine HCl (vitamin B1) 100 mg PO QAM trazodone 200 mg PO BEDTIME PRN PFSH Medical History Elevated troponin Cardiomyopathy CAD (coronary artery disease) Dyspnea Asthma-COPD overlap syndrome Alcohol use History of methadone use Personal history of nicotine dependence Asthma Obesity (BMI 30-39.9) GERD (gastroesophageal reflux disease) Cirrhosis Vitamin D deficiency Hypertension Dyslipidemia Non-toxic multinodular goiter Osteoporosis Diabetic 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 with type 2 diabetes mellitus 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 (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) use of insulin Diabetes type 2, uncontrolled Surgical History Status post biopsy of thyroid gland History of colonoscopy (~2016) Hx of cataract extraction History of esophagogastroduodenoscopy (EGD) (~2020) Hx of cardiac cath (~12/2015) Hx of cholecystectomy (~1980) History of bladder surgery (~06/2019) Family History Father Esophageal cancer Mother Diabetes mellitus HTN (hypertension) Social History Household Members: Spouse Housing: Apartment Do you presently have visiting nurse or other home services: No Alcohol intake: current Alcohol intake frequency: 3 or more drinks per day Alcohol type: beer Patient Tobacco Use Status: Former Tobacco user Tobacco use type: Cigarette Years Smoked: Onset 27, 2ppd x 24yrs, 48pyh, quit 11/2012 Advance Directives Date on File: 02/28/21 service: No Physical Exam Const Other: Well-nourished well-developed very friendly female awake alert and oriented x3 in no acute distress Extrem Other: Bilateral lower extremity examination shows good capillary refill, no skin lesions noted, normal sensation light touch Left knee examination shows a minimal effusion, palpable crepitus with range of motion, pain with range of motion, no instability Office Procedures AMB Joint Injection/Aspiration Joint Injection/Aspiration Primary Site: left knee Prep: site was prepped using aseptic technique Injected: 40 mg of, DepoMedrol and 1% plain lidocaine Procedure: The patient tolerated the procedure well Coding - Large joint Procedure code (CPT) selection complete Results Reviewed Results Reviewed: X-rays of the patient's left knee taken previously show joint space narrowing, subchondral sclerosis, no acute bony abnormalities Assessment & Plan Assessment & Plan (1) Arthritis of left knee: Code(s): M17.12 - Unilateral primary osteoarthritis, left knee Category: Medical (2) Left knee pain: Code(s): M25.562 - Pain in left knee Plan Ms. Tavarez presents with left knee pain due to degenerative joint disease. The risks and benefits of a left knee cortisone injection were discussed at length with the patient. The patient wished to proceed. She tolerated the injection well. She will continue with her home exercise program. She will contact me prior to her follow-up appointment in 3 months should any questions or concerns arise. Feel free to call me at any time should questions regarding her orthopedic management arise. I spent 22 minutes in reviewing the patient's records and imaging studies, seeing the patient and documenting in the medical record. Orders: Orders AMB Joint Injection/Aspiration Today M17.12 - Unilateral primary osteoarthritis, left knee Coding Level of Care Code Est Pt Level 3 (54806) Complex EM visit Add On G2211 Diagnoses Arthritis of left knee M17.12 Left knee pain M25.562 CPT Codes Coding - Large joint: 28511 - Large joint ([id number])
--- OUTSIDE RECORDS SUMMARY | 2024-12-18 10:57 | XMS_ITS | Clinical Summary ---
Author Organization [employer] Address [address] [place] [address] 7[address] [place] [address] Care Team Providers Care Still Tender Name Role Phone Shireen Stout MD Primary [...] AND SUNDAY 13 tablet 5 025 Active benzonatate (Tessalon) 200 MG capsule [...] Refills, Soft Stop, 06/18/24 12:20:00 PM EDT, [facility], Partial fill upon patient request if the prescription is for a schedule II opioid drug., 156, cm, 06/18/24 9:02:00 EDT, Height 025 Active albuterol 108 (90 Base) MCG/ACT inhalerIndicatio ns:Seasonal allergic rhinitis, unspecified trigger Inhale 2 puffs every 6 (six) hours if needed for wheezing. 18 g 2 025 2025 Active linaCLOtide (Linzess) 72 MCG capsule Take 72 mcg by mouth before breakfast. Do not crush or chew. Active losartan (Cozaar) 25 MG tablet TAKE 1 TABLET BY MOUTH EVERY MORNING 90 tablet 1 025 Active pantoprazole (ProtoNix) 20 MG EC tabletIndication [...] by mouth at bedtime. 90 tablet 3 025 Active cholecalciferol (Vitamin D-3) 50 MCG (2000 UT) capsuleIndicatio ns:Vitamin D deficiency Take 1 capsule (50 mcg) by mouth Once per day. 90 capsule 025 Active empagliflozin (Jardiance) 10 MG Take 1 tablet (10 mg) by mouth Once per day. 30 tablet 025 2025 Active torsemide (Demadex) 10 MG tablet Take 1 tablet (10 mg) by mouth Once per day. 30 tablet 025 2025 Active gabapentin (Neurontin) 300 MG capsule Take 1 capsule (300 mg) by mouth at bedtime. 90 capsule 1 025 2025 Active alendronate (Fosamax) 70 MG tablet Take [...] cleanup (will not trigger notification to Pharmacy)) ergocalciferol (Vitamin D2) 1.25 MG (01712 UT) capsule TAKE 1 CAPSULE BY MOUTH ONCE WEEKLY ON SUNDAY MORNING 4 capsule 2 025 2024 Discontinued(A lternate therapy) Aspirin EC Adult Low Dose 81 MG EC tablet 025 2024 Discontinued(O ther) gabapentin (Neurontin) 300 MG capsule Take 1 capsule (300 mg) by mouth 2 times daily. 60 capsule 5 025 2024 Discontinued(R eorder (will not trigger notification to Pharmacy)) naltrexone (Depade) 50 MG tabletIndication s:Alcohol use [...] Active Problems Problem Noted Date Diagnosed Date Diabetes mellitus type 2, insulin dependent 07/2024 Assessment & Plan (12/11/2024 6:11 PM EDT): - A1C 5.7%, well-controlled. Concern for hypoglycemia. - Will check if patient can get CGM. - Continue current insulin therapy - No longer on metformin, although patient perceived that she was on metformin. According to the pharmacist, the biggest pill in her medbox is calcium. - follow up with PCP OAB (overactive bladder) 12/10/2024 Assessment & Plan (12/11/2024 6:13 PM EDT): - Patient has been on mirabegron prior to hospitalization. During the hospitalization and jail stay, it was changed to oxybutynin. - Will resume mirabegron since oxybutynin is anticholinergic and may worsen her cognition. Moderate recurrent major depression 08/21/2024 Assessment & [...] OP referral and reports was connected with [facility] in the past (about 4 / 5 years ago). Pt is able to manage her depressive mood with medication. Alcoholic fibrosis and sclerosis of liver 2023 Vitamin D deficiency 03/05/2024 Acute vaginitis 11/01/2023 Anemia 11/22/2022 Assessment & Plan (11/22/2022 8:01 [...] -2.7-on tx already -vaccines: hepAx2,hepBx3-Immune , Covid 61r9-Wqafqmvl 10/2022, b03n7-t/p 20 x1, tdap 2022 ,s/p zoster vaccinex2 [...] value of -2.7-on tx already -vaccines: hepAx2,hepBx3,covid 63a8-Rnyfgbhr today, e44o2-g/p 20 x1, tdap 2011- today booster,s/p zoster [...] associated w vascular etiology and rec for dockworker referral -pt was tx already w keflex 500 BID x 5 days at last apt w no change in rash -advised pt to raise leg -referred to dockworker -pt using fungal cream chronically px by vascular Assessment & Plan (10/25/2022 1:41 PM EDT): Pt w chronic lower left leg pain and erythema -possible vascular in nature ? -I called today her vascular Dr Adame # [phone] staff pt was last seen in 04/2022 [...] some time -pt will check w her slag worker if had recently any DEXA scan otherwise [...] Vit D 1999 -will check w her slag worker if had recently any DEXA scan otherwise [...] heterogeneous left thyroid nodule. -pt f w slag worker-advised pt to continue care w specialist ,pt will discuss tomorrow w specialist if had recently another US or if plan to repeat Assessment & Plan (10/25/2022 1:17 PM EDT): -thyroid US 2019: Small right lobe. Previously identified small right thyroid nodule is not appreciated. Enlarged left lobe. No appreciable change in the solitary, large, heterogeneous left thyroid nodule. -pt f w slag worker-advised pt to continue care w specialist ,request [...] on basal insulin? --I called to her slag worker-Dr Diamond at # [phone] at previous visit to discuss case. I [...] refused. -pt has f up apt w slag worker tomorrow and advised to discuss about basal insulin ? - mine production engineer 11/2022 mild non proliferative diabetic retinopathy to f in 6 mo -referred to blurb writer today Assessment & Plan (11/22/2022 7:42 PM EDT): Pt w DM2 -insulin dependent w neuropathy Pt is on rapid insulin 220 u in am only and invokana 10/2022 hb1AC is 7.9<---8.9-elevated Gl at 259 .microalb neg , LDL 66 -unsure why pt is not on basal insulin? --I called to her slag worker-Dr Diamond at # [phone] at previous visit to discuss case. I [...] refused. -pt has f up apt w slag worker tomorrow and advised to discuss about basal insulin ? - mine production engineer 11/2022 mild non proliferative diabetic retinopathy to f in 6 mo -referred to blurb writer today Assessment & Plan (10/25/2022 1:12 PM EDT): Pt w DM2 -insulin dependent w neuropathy Pt is on rapid insulin 220 u in am only and invokana -today hb1AC is 8.9-elevated CBG at 392--> rechecked was 302 -unsure why pt is not on basal insulin? --I called today her slag worker-Dr Diamond at # [phone] to discuss case. I left my cell [...] upcoming meal -will await call from her slag worker to discuss plan of care and advised pt to call her specialist at to schedule apt for uncontrolled DM ,likely associated w her ongoing alcohol intake. -also was referred to DM educational by her slag worker -referred today to mine production engineer -will refer to blurb writer at next apt -DM labs Essential hypertension [...] 466, HR 74x' 10/2022 Microalb neg - mine production engineer 11/2022 Mild non proliferative diabetic retinopathy to [...] 466, HR 74x' 10/2022 Microalb neg - mine production engineer 11/2022 Mild non proliferative diabetic retinopathy to f up in 6 mo -continue BP meds Assessment & Plan (10/25/2022 5:54 PM EDT): BP is controlled on ARBs -echo 2016 : EF between 55-60 %.Normal -nuclear stress test 2016: without EKG changes meeting criteria for ischemia. -cardiac cath 2016: non obstructive CAD -referred to mine production engineer -microalb -will check EKG at next apt [...] order new one -referred back to her insole cementer to continue care-has apt on 12/2022 Assessment [...] to start trelegy -referred back to her insole cementer to continue care -request [place] -[place] to try to get last pulm visit note Alcoholic cirrhosis 03/25/2015 Assessment & Plan (12/11/2024 6:11 PM EDT): -MRA (MR ANGIOGRAPHY) 2018: No [...] to decrease alcohol consumption Assessment & Plan (11/22/2022 8:04 PM EDT): [...] diet and exercise,discussed healthy life style -discussed flatwork finisher referral --referred already has apt for next month Assessment & Plan (10/25/2022 1:12 PM EDT): Advised pt to improve diet and exercise,discussed healthy life style -discussed flatwork finisher referral --referred today Smoker 03/25/2015 Assessment & [...] hypoventilatory changes or air trapping. -requested to CT to obtain last CT chest done per [...] hypoventilatory changes or air trapping. -requested to CT to obtain last CT chest done per pt > 1 y ago -referred today to lung ca screening program to continue screening Resolved Problems Problem Noted Date Diagnosed Date Resolved Date Skin lesions 03/05/2024 08/23/2024 Lower extremity edema 11/01/20232023 Type 2 diabetes mellitus wit h hyperglycemia, without long-term current use of insulin 08/01/2023 12/11/2024 Skin lesion 01/23/2023 03/05/2024 Thyroid nodule 12/02/2021 [...] to discuss with her primary care or marketing automation specialist on getting treatment for alcohol dependence. We discussed using insulin pump, as referenced in slag worker note but this time patient does not feel that she can manage an insulin pump independently. Reviewed with patient how to treat hypoglycemia, hypoglycemic handout in Bhutanese given to patient Encounters Date Type Department Care Team Description 12/13/2024 Results Follow-Up [facility] [address] [place] [address] Lisa Mccurdy MD POCT Hgb A1c, POCT Glucose, Basic Metabolic Panel, Additional followed-up results: 4 12/13/2024 Orders Only [facility] [place] [address] Lisa Mccurdy MD Leg swelling (Primary Dx); Shortness of breath; Heart failure with mid-range ejection fraction (HFmEF) (CMS/HCC) 12/11/2024 9:30 AM EDT Office Visit [address] [place] [address] Lisa Mccurdy MD Essential hypertension (Primary Dx); Alcoholic cirrhosis, unspecified whether ascites present (CMS/HCC); Alcohol use disorder, severe, dependence ([facility]/HCC); Pulmonary emphysema, unspecified emphysema type ([facility]/HCC); Diabetic peripheral neuropathy associated with type 2 diabetes mellitus ([facility]/HCC); Moderate recurrent major depression ([facility]/HCC); OAB (overactive bladder); Diabetes mellitus type 2, insulin dependent ([facility]/HCC); Leg swelling; Vitamin D deficiency; Depressive disorder 12/11/2024 Travel 12/05/2024 1:00 PM EDT Office Visit [facility] [place] [address] Terrence Avila MD Alcohol use disorder, severe, dependence (CMS/HCC) (Primary Dx) 12/05/2024 Travel 12/03/2024 Telephone [facility] [place] [address] Shireen Stout MD Nurse Triage 11/28/2024 Patient Outreach [address] [address] Shireen Stout MD Transition Of Care (Tcm) (HDF- scheduled (direct)) 11/25/2024 Telephone [facility] [place] [address] Shireen Stout MD chart prep 11/12/2024 Results Follow-Up [facility] [place] [address] Shireen Stout MD Us Pelvis complete 11/11/2024 Orders Only [facility] External Provider, [facility] 11/11/2024 Refill [facility] [address] [facility] [place] [address] Lisa Mccurdy MD Mixed hyperlipidemia 10/22/2024 Patient Outreach [facility] [address] [place] [phone] Shireen Stout MD Transition Of Care (Tcm) (HDF unscheduled) 10/09/2024 Refill [facility] [address] [place] [phone] Abhijit La MD 10/02/[address] [address] Shireen Stout MD Medication Question 09/24/[address] [address] Shireen Stout MD Nurse Triage; ER Follow-up 09/22/[address] [address] Shireen Stout MD Durable Medical Equipment 09/22/2024 Results Follow-Up [address] [place] [address] Shireen Stout MD US Thyroid 09/22/[address] [address] Shireen Stout MD med list request 09/20/2024 Orders Only GENERIC EXTERNAL DATA DEPARTMENT Provider, Generic External Data 09/19/2024 Results Follow-Up [address] [place] [address] Shireen Stout MD Prothrombin Time-INR, Comprehensive Metabolic Panel, Magnesium, CBC auto differential 09/19/2024 Orders Only GENERIC EXTERNAL DATA DEPARTMENT Provider, Generic External Data 09/17/[address] [place] [address] Shireen Stout MD Appointment from Last 3 Months Immunizations Immunization Administration [...] Procedure Name Priority Date/Time Associated Diagnosis Comments NT-PROBNP Routine 12/11/2024 11:04 AM EDT Leg swelling VITAMIN D,25-OH,TOTAL,IA Routine 12/11/2024 11:04 AM EDT Vitamin D deficiency CBC WITH AUTO DIFFERENTIAL Routine 12/11/2024 11:04 AM EDT Alcoholic cirrhosis, unspecified whether ascites present (CMS/[facility]) TSH W/REFLEX TO FT4 Routine 12/11/2024 1 1:04 AM EDT Leg swelling BASIC METABOLIC PANEL Routine 12/11/2024 11:04 AM EDT Essential hypertension POCT GLYCATED HEMOGLOBIN, TOTAL Routine 12/11/2024 9:46 AM EDT Diabetes mellitus type 2, insulin dependent ([facility]) POCT GLUCOSE Routine 12/11/2024 9:44 AM EDT Diabetes mellitus type 2, insulin dependent ([facility]) US PELVIS COMPLETE Routine 11/12/2024 9: 45 [...] Recently Relevant to Health Maintenance Results * Vitamin D, 25-Hydroxy, Total, Immunoassay (12/11/2024 11:04 AM EDT) Vitamin D 25-OH Total 36.6 >30 ng/mL [facility] Comment: Health Based Reference Values*< 20 ng/mL Shafvhqgc09-85 ng/mL Insufficient> 30 ng/mL Sufficient*Acosta BERMUDEZ. N [...] 11:04 AM EDT 12/11/2024 1:28 PM EDT us Lisa Mccurdy MD LAB BLOOD ORDERABLES Final Resul t [facility] [address] [place] [phone] * TSH with Reflex to Free T4 (12/11/2024 11:04 AM EDT) TSH reflex Free T4 0.39 0.32 - 4.0 uIU/mL [facility] Blood 12/11/2024 11:0 4 AM EDT 12/11/2024 1:28 PM EDT Lisa Mccurdy MD LAB BLOOD ORDERABLES Final Resul t Performing Organization Address [facility] Co de Phone Number [facility] [address] [place] [address] [phone] * (ABNORMAL) NT-proBNP (12/11/2024 11:04 AM EDT) NT-proBNP 517(A) <125 pg/mL [facility] Comment:THIS TEST WAS PERFOR MED AT:[facility] [employer] [place] [phone] AGUIRRE MD Venous blood specimen / Unknown 12/11/2024 11:04 AM EDT 12/11/2024 1:16 PM EDT Lisa Mccurdy MD LAB BLOOD ORDERABLES Final Resul t Performing Organization Address [facility] de Phone Number [facility] [address] [place] [address] [phone] * (ABNORMAL) CBC auto differential (12/11/2024 11:04 AM EDT) Only the most recent of2 resultswithin the time period is included. White Blood Count 5.6 4.8 - 10.8 X10*3/uL [facility] Red Blood Count 3.38(L) 4.20 - 5.50 X10*6/uL [facility] Hemoglobin 10.4(L) 12.0 - 16.0 g/dl [facility] Hematocrit 32.1(L) 37.0 - 47.0 % [facility] Mean Corpuscular Volume 95.0 80.0 - 98.0 fL [facility] Mean Corpuscular Hemoglobin 30.8 27.0 - 33.0 pg [facility] Mean Corpuscular HGB Conc 32.4 31.0 - 35.0 g/dl [facility] Red Cell Distribution Width 15.6 11.0 - 16.0 % [facility] Platelet Count 199 160 - 400 X10*3/uL [facility] Mean Platelet Volume 10.1 9.4 - 12.3 fL [facility] Neutrophils Percent Auto 65.0 45 - 73 % [facility] Imm Gran Pct Auto 0.5(H) 0.0 - 0.4 % [facility] Lymphocytes Percent Auto 25.4 20 - 40 % [facility] Monocytes Percent Auto 6.6 2 - 11 % [facility] Eosinophils Percent Auto 2.0 0 - 4 % [facility] Basophils Percent Auto 0.5 0 - 2 % [facility] NRBC Pct Auto 0.0 0.0 - 0.2 /100WBC [facility] Neutrophils Absolute Auto 3.6 2.0 - 8.3 x10*3/uL [facility] Imm Gran Abs Auto 0.03 0.00 - 0.03 X10*3/uL [facility] Lymphocytes Absolute Auto 1.4 1.2 - 4.9 X10*3/uL [facility] Monocytes Absolute Auto 0.4 0.1 - 1.2 X10*3/uL [facility] Eosinophils Absolute Auto 0.1 0.0 - 0.4 X10*3/uL [facility] Basophils Absolute Auto 0.0 0.0 - 0.2 X10*3/uL [facility] NRBC Abs Auto 0.000 0.0 - 0.012 X10*3/uL [facility] Blood Venous blood specimen / Unknown 12/11/2024 11:04 AM EDT 12/11/2024 1:28 PM EDT us Lisa Mccurdy MD LAB BLOOD ORDERABLES Final Resul t [facility] [address] [place] [phone] [phone] * (ABNORMAL) Basic Metabolic Panel (12/11/2024 11:04 AM EDT) Pathologist [facility] Sodium 144 135 - 145 mmol/L [facility] Potassium 3.6 3.3 - 5.1 mmol/L [facility] Chloride 106 96 - 108 mmol/L [facility] Carbon Dioxide 31(H) 22 - 29 mmol/L [facility] Anion Gap 11(L) 12 - 20 [facility] Urea Nitrogen (BUN) 5(L) 9 - 16 mg/dL [facility] Creatinine, Serum 0.56 0.5 - 1.4 mg/dL [facility] Estimated Glomerular Filt Rate >60 [facility] Comment:Chronic Kidney Disea se: Estimated GFR < 60 mL/min/1.48d0Bofmjy Kidney Disease: Estimated GFR < 15 mL/min/1.73m2 Glucose 182(H) 60 - 115 mg/dL [facility] Calcium 9.2 8.4 - 10.2 mg/dL [facility] Blood Venous blood specimen / Unknown 12/11/2024 11:04 AM EDT 12/11/2024 1:28 PM EDT Lisa Mccurdy MD LAB BLOOD ORDERABLES Final Resul t [facility] [address] [place] [phone] * POCT Hgb A1c (12/11/2024 9:46 AM EDT) [facility] Hemoglobin A1C 5.7 4.0 - 5.7 % QC Media Lot # [id number] Lot# Expiration Date 20,264 Blood 12/11/2024 9:46 AM EDT Lisa Mccurdy MD POINT OF CARE TEST ENTER/EDIT OR DERABLES Final Result * (ABNORMAL) POCT Glucose (12/11/2024 9:44 AM EDT) Pathologist [facility] Glucose Blood, POC 264(A) 60 - 200 mg/dL QC Media Lot # [id number] Lot# Expiration Date Blood Capillary blood specimen / Unknown 12/11/2024 9:44 AM EDT us Lisa Mccurdy MD POINT OF CARE TEST ENTER/EDIT OR DERABLES Final Result * Us Pelvis complete (11/12/2024 9:45 AM EDT) Anatomical Region Laterality Modality Pelvis Ultrasound 11/12/2024 9:45 AM EDT Narrative 11/12/2024 10:38 AM EDT [place] [address] Ultrasound Report Signed Patient: Shireen Tavarez MR#: [id number] 1 : 1960 Acct:[id number] Age/Sex: 63 / F ADM Date: 11/11/24 [facility]: Dylan Adams MD Ordering Physician: Gerri Walls MD Date of Service: 11/12/24 Procedure(s): US pelvic complete Accession Number(s): [id number] cc: Gerri Walls MD; Shireen Stout MD [...] limited by lack of an endovaginal scan. DOUBLE CORNER CUTTER consultation is recommended. Electronically signed by: Kaushik Ramirez MD 11/12/2024 10:35 AM EDT RP Dictated By: Kaushik Ramirez MD Signed By: <Electronically signed by Kaushik Ramirez MD in OV> 11/12/24 1035 DD/ 0945 TD/TT: 11/12/24 0948 Kiln Burner: Procedure Note Donotuseinterpreter, Image - 11/12/[address] [address] Ultrasound Report Signed Patient: Hunter Tavarez#: [id number] 1 : 9Acct:[id number] Age/Sex: 63 / FADM Date: 11/11/24 Loc: [facility]: Dylan Adams MD Ordering Physician: Gerri Walls MD Date of Service: 11/12/24 Procedure(s): US pelvic complete Accession Number(s): [id number] cc: Gerri Walls MD; Shireen Stout MD [...] limited by lack of an endovaginal scan. DOUBLE CORNER CUTTER consultation is recommended. Electronically signed by: Kaushik Ramirez MD 11/12/2024 10:35 AM EDT RP Dictated By: Kaushik Ramirez MD Signed By: <Electronically signed by Kaushik Ramirez MD in OV> 11/12/24 1035 DD/ 0945 TD/TT: 11/12/24 0948 Kiln Burner: [facility] External Provider IMG US PROCEDURES Final Result * (ABNORMAL) High Sensitivity Troponin I (11/11/2024 3:41 PM EDT) TROPONIN I HIGH SENSITIVITY 52.5(HH) <3.5 - 17.0 ng/L [facility] Comment:Critical value for t est(s): TROPONIN Results called to juan pablo back by: FANY Person calling:[id number] Date: 11/11/24Time:1612The BotScanner high sensitivity Troponin-I results should beused in conjunction with other diagnostic information suchas ECG, clinical observations and information, and patientsymptoms to aid in the diagnosis of GA. 11/11/2024 3:41 PM EDT 11/11/2024 3:49 PM EDT Generic External Data Provider LAB BLOOD ORDERAB LES Final Result [facility] [address] [place] [phone] * Lactic Acid (11/11/2024 3:41 PM EDT) Lactic Acid 1.6 0.5 - 2.0 mmol/L [facility] 11/11/2024 3:41 PM EDT 11/11/2024 3:49 PM EDT us Generic External Data Provider LAB BLOOD ORDERAB LES Final Result [facility] [address] [place] [phone] * CT Abdomen Pelvis w/ Contrast (11/11/2024 1:21 PM EDT) Anatomical Region Laterality Modality Body, Pelvis, Abdomen Computed T omography 11/11/2024 1:21 PM EDT Narrative 11/11/2024 2:59 PM EDT [address] [address] [address] Scan Report Signed Patient: Shireen Tavarez MR#: [id number] 1 : 1960 Acct:[id number] Age/Sex: 63 / F ADM Date: 11/11/24 Loc: HO.ED Attending Dr: Ordering Physician: Libertad Elena Date of Service: 11/11/24 Procedure(s): CT abdomen pelvis w IV con Accession Number(s): [id number] cc: Shireen Stout MD; Libertad Elena Report Number: [id number]: Total DLP = 448.00 mGy-cm EXAMINATION: CT [...] 11/11/24 1457 DD/ 1321 TD/TT: 11/11/24 1445 Kiln Burner: Procedure Note Donotuseinterpreter, Image - 11/11/[address] [address] [address] Scan Report Signed Patient: Shireen TavarezMR#: [id number] 1 : 1960cct:[id number] Age/Sex: 63 / FADM Date: 11/11/24 Loc: HO.ED Attending Dr: Ordering Physician: Libertad Elena Date of Service: 11/11/24 Procedure(s): CT abdomen pelvis w IV con Accession Number(s): [id number] cc: Shireen Stout MD; Libertad Elena Report Number: [id number]: Total DLP = 448.00 mGy-cm EXAMINATION: CT [...] 11/11/24 1457 DD/ 1321 TD/TT: 11/11/24 1445 Kiln Burner: [facility] External Provider IMG CT PROCEDURES Edited Result - Final * (ABNORMAL) Glucose, Whole Blood (09/20/2024 7:24 AM EDT) Only the most recent of3 resultswithin the time period is included. Glucose, Whole Blood 299(H) 60 - 115 mg/dL [facility] Comment:METER #: [id number] 09/20/2024 7:24 AM EDT 09/20/2024 7:28 AM EDT Generic External Data Provider LAB BLOOD ORDERAB LES Final Result [facility] [address] [place] [address] [phone] * XR Hip left with Pelvis 1 view (09/19/2024 8:49 PM EDT) Anatomical Region Laterality Modality Lower Extremities, Hip Bilateral Radiograp hic Imaging 09/19/2024 8:49 PM EDT Narrative 09/19/2024 8:51 PM EDT [address] [address] XRay Report Signed Patient: Shireen Tavarez MR#: [id number] 1 : 1960 Acct:[id number] Age/Sex: 63 / F ADM Date: 09/19/24 Loc: HO.ED Attending Dr: Ordering Physician: Doe Reed MD Date of Service: 09/19/24 Procedure(s): XR hip LT w PEL1V Accession Number(s): [id number] cc: Shireen Stout MD; Doe Reed MD [...] in OV> 09/19/242049 DD/ 48 TD/TT: 09/19/242048 Kiln Burner: Procedure Note Donotuseinterpreter, Image - 09/19/[address] [address] XRay Report Signed Patient: Shireen TavarezMR#: [id number] 1 : 1960cct:[id number] Age/Sex: 63 / FADM Date: 09/19/24 Loc: HO.ED Attending Dr: Ordering Physician: Doe Reed MD Date of Service: 09/19/24 Procedure(s): XR hip LT w PEL1V Accession Number(s): [id number] cc: Shireen Stout MD; Doe Reed MD [...] in OV> 09/19/242049 DD/ 48 TD/TT: 09/19/242048 Kiln Burner: [facility] External Provider IMG XR PROCEDURES Final Result * CT Cervical Spine w/o Contrast (09/19/2024 8:47 PM EDT) Anatomical Region Laterality Modality Spine, C-spine Computed Tomogra phy 09/19/2024 8:47 PM EDT Narrative 09/19/2024 8:49 PM EDT [place] [address] CT Scan Report Signed Patient: Shireen Tavarez MR#: [id number] 1 : 1960 Acct:[id number] Age/Sex: 63 / F ADM Date: 09/19/24 Loc: HO.ED Attending Dr: Ordering Physician: Doe Reed MD Date of Service: 09/19/24 Procedure(s): CT cervical spine wo IV con Accession Number(s): [id number] cc: Shireen Stout MD; Doe Reed MD Report Number: [id number]: Total DLP = 468.00 mGy-cm CLINICAL HISTORY: [...] in OV> 09/19/242047 DD/ 46 TD/TT: 09/19/242046 Kiln Burner: Procedure Note Donotuseinterpreter, Image - 09/19/[address] [address] [address] Scan Report Signed Patient: Shireen TavarezMR#: [id number] 1 : 1960cct:[id number] Age/Sex: 63 / FADM Date: 09/19/24 Loc: HO.ED Attending Dr: Ordering Physician: Doe Reed MD Date of Service: 09/19/24 Procedure(s): CT cervical spine wo IV con Accession Number(s): [id number] cc: Shireen Stout MD; Doe Reed MD Report Number: [id number]: Total DLP = 468.00 mGy-cm CLINICAL HISTORY: [...] in OV> 09/19/242047 DD/ 46 TD/TT: 09/19/242046 Kiln Burner: [facility] External Provider IMG CT PROCEDURES Final Result * CT Sinus Facial Bones w/o Contrast (09/19/2024 8:20 PM EDT) Anatomical Region Laterality Modality Computed Tomogra phy 09/19/2024 8:20 PM EDT Narrative 09/19/2024 8:21 PM EDT [address] [address] [address] Scan Report Signed Patient: Shireen Tavarez MR#: [id number] 1 : 1960 Acct:[id number] Age/Sex: 63 / F ADM Date: 09/19/24 Loc: HO.ED Attending Dr: Ordering Physician: Doe Reed MD Date of Service: 09/19/24 Procedure(s): CT facial bones wo IV con Accession Number(s): [id number] cc: Shireen Stout MD; Doe Reed MD Report Number: [id number]: Total DLP = 440.41 mGy-cm CLINICAL HISTORY: [...] in OV> 09/19/242019 DD/ 19 TD/TT: 09/19/242019 Kiln Burner: Procedure Note Donotuseinterpreter, Image - 09/19/[address] [address] [address] Scan Report Signed Patient: Shireen TavarezMR#: [id number] 1 : 1960cct:[id number] Age/Sex: 63 / FADM Date: 09/19/24 Loc: HO.ED Attending Dr: Ordering Physician: Doe Reed MD Date of Service: 09/19/24 Procedure(s): CT facial bones wo IV con Accession Number(s): [id number] cc: Shireen Stout MD; Doe Reed MD Report Number: [id number]: Total DLP = 440.41 mGy-cm CLINICAL HISTORY: [...] in OV> 09/19/242019 DD/ 19 TD/TT: 09/19/242019 Kiln Burner: [facility] External Provider IMG CT PROCEDURES Final Result * CT Head w/o Contrast (09/19/2024 8:20 PM EDT) Anatomical Region Laterality Modality Head, Neck Computed Tomogra phy 09/19/2024 8:20 PM EDT Narrative 09/19/2024 8:22 PM EDT [place] [address] [address] Scan Report Signed Patient: Shireen Tavarez MR#: [id number] 1 : 1960 Acct:[id number] Age/Sex: 63 / F ADM Date: 09/19/24 Loc: HO.ED Attending Dr: Ordering Physician: Doe Reed MD Date of Service: 09/19/24 Procedure(s): CT head/brain wo IV con Accession Number(s): [id number] cc: Shireen Stout MD; Doe Reed MD Report Number: [id number]: Total DLP = 610.54 mGy-cm CLINICAL HISTORY: [...] in OV> 09/19/242020 DD/ 19 TD/TT: 09/19/242019 Kiln Burner: Procedure Note Donotuseinterpreter, Image - 09/19/[address] [place] [address] [address] Scan Report Signed Patient: Hunter Tavarez#: [id number] 1 : 9Acct:[id number] Age/Sex: 63 / FADM Date: 09/19/24 Loc: HO.ED Attending Dr: Ordering Physician: Doe Reed MD Date of Service: 09/19/24 Procedure(s): CT head/brain wo IV con Accession Number(s): [id number] cc: Shireen Stout MD; Doe Reed MD Report Number: [id number]: Total DLP = 610.54 mGy-cm CLINICAL HISTORY: [...] in OV> 09/19/242020 DD/ 19 TD/TT: 09/19/242019 Kiln Burner: [facility] External Provider IMG CT PROCEDURES Final Result * (ABNORMAL) Prothrombin Time-INR (09/19/2024 7:09 PM EDT) Pathologist [facility] Prothrombin Time 13.4(H) 10.9 - 12.4 SEC [facility] INTERNATIONAL NORM RATIO 1.2(H) 0.9 - 1.1 [facility] Comment:INTERNATIONAL NORMAL IZED RATIO (INR) [...] ORDERAB LES Final Result Performing Organization Address [facility] Co de Phone Number [facility] [address] [place] [phone] * Magnesium (09/19/2024 7:09 PM EDT) [facility] Magnesium 1.7 1.6 - 2.6 mg/dL [facility] 09/19/2024 7:09 PM EDT 09/19/2024 7:12 PM EDT Generic External Data Provider LAB BLOOD ORDERAB LES Final Result Performing Organization Address [facility] Co de Phone Number [facility] [address] [place] [phone] * (ABNORMAL) Comprehensive Metabolic Panel (09/19/2024 7:09 PM EDT) [facility] Sodium 139 135 - 145 mmol/L [facility] Potassium 4.6 3.3 - 5.1 mmol/L [facility] Chloride 100 96 - 108 mmol/L [facility] Carbon Dioxide 31(H) 22 - 29 mmol/L [facility] Anion Gap 13 12 - 20 [facility] Urea Nitrogen (BUN) 9 9 - 16 mg/dL [facility] Creatinine, Serum 0.79 0.5 - 1.4 mg/dL [facility] Creatinine Clr Calc Pharmacy 69.8 [facility] Comment:Provided height and weight: 154.94 cm,84 kg.eGFR (calculated from the MDRD study equation) and eCrCl(calculated from the Cockcroft-Gault equation) are based ondifferent parameters and may not yield comparable results.If eCrCl result is absurd, please check patient'sheight/weight. Estimated Glomerular Filt Rate >60 [facility] Comment:Chronic Kidney Disea se: Estimated GFR < 60 mL/min/1.58c0Jxwmbg Kidney Disease: Estimated GFR < 15 mL/min/1.73m2 Glucose 290(H) 60 - 115 mg/dL [facility] Calcium 9.3 8.4 - 10.2 mg/dL [facility] Bilirubin, Total 0.6 0.0 - 1.0 mg/dL [facility] Aspartate Amino Transferase 59(H) 5 - 31 U/L [facility] Alanine Aminotransferase 32(H) 0 - 31 U/L [facility] Total Protein 8.0 6.5 - 8.0 g/dL [facility] Albumin Level 4.5 3.5 - 5.0 g/dL [facility] Alkaline Phosphatase 46 39 - 117 U/L [facility] 09/19/2024 7:09 PM EDT 09/19/2024 7:12 PM EDT us Generic External Data Provider LAB BLOOD ORDERAB LES Final Result [facility] [address] [place] [address] [phone] * US Thyroid (09/19/2024 4:05 PM EDT) Anatomical Region Laterality Modality Head, Neck Ultrasound 09/19/2024 4:05 PM EDT Narrative 09/22/2024 9:52 AM EDT [address] [address] Ultrasound Report Signed Patient: Shireen Tavarez MR#: [id number] 1 : 1960 Acct:[id number] Age/Sex: 63 / F ADM Date: 09/19/24 Loc: HO.US Attending Dr: Shireen Krishnan MD Ordering Physician: Shireen Stout MD Date of Service: 09/19/24 Procedure(s): US thyroid Accession Number(s): [id number] cc: Shireen Stout MD EXAMINATION: US THYROID [...] than or equal to 1 cm: 1. Dental Insurance Biller nodules are described as follows: 1. Location: [...] 09/22/24 0949 DD/ 1605 TD/TT: 09/19/24 1616 Kiln Burner: Procedure Note Donotuseinterpreter, Image - 09/22/[address] [address] Ultrasound Report Signed Patient: Shireen TavarezMR#: [id number] 1 : 9Acct:[id number] Age/Sex: 63 / FADM Date: 09/19/24 Loc: HO.US Attending Dr: Shireen Krishnan MD Ordering Physician: Shireen Stout MD Date of Service: 09/19/24 Procedure(s): US thyroid Accession Number(s): [id number] cc: Shireen Stout MD EXAMINATION: US THYROID [...] than or equal to 1 cm: 1. Dental Insurance Biller nodules are described as follows: 1. Location: [...] 09/22/24 0949 DD/ 1605 TD/TT: 09/19/24 1616 Kiln Burner: us Shireen Krishnan MD IMG US PROCEDURES Edited Result - Final * BI Mammogram Screening Tomosynthesis Bilateral (06/30/2024 10:15 AM EDT) Anatomical Region Laterality Modality Breast Bilateral Mammography 06/30/2024 10:1 5 AM EDT Narrative 07/06/2024 8:14 PM EDT [facility] [address] [place] [address] Mammography Report Signed Patient: Shireen Tavarez MR#: [id number] 1 : 1960 Acct:[id number] Age/Sex: 63 / F ADM Date: 06/30/24 Loc: HO.MAMMO Attending Dr: Shireen Krishnan MD Ordering Physician: Shireen Stout MD Re sults: 2Benign Findings Date of Service: 06/30/24 Follow Up: 1 Year From Orig inal Mammogram Procedure(s): MM tomosynthesis screening BI Accession Number(s): [id number] cc: Shireen Stout MD EXAMINATION: MM SCREENING [...] Genet Jett DO 07/06/2024 08:11 PM EDT RP Dictated By: Genet Jett DO Signed By: <Electronically signed by Genet Jett DO in OV> 07/06/242010 DD/ 1015 TD/TT: 06/30/24 1029 Kiln Burner: Procedure Note Donotuseinterpreter, Image - 07/06/2024 [place] [place] [address] [place] [address] Mammography Report Signed Patient: Shireen TavarezMR#: [id number] 1 : 9Acct:[id number] Age/Sex: 63 / FADM Date: 06/30/24 Loc: HO.MAMMO Attending Dr: Shireen Krishnan MD Ordering Physician: Shireen Stout sults: 2Benign Findings Date of Service: 06/30/24Follow Up: 1 Year From Orig inal Mammogram Procedure(s): MM tomosynthesis screening BI Accession Number(s): [id number] cc: Shireen Stout MD EXAMINATION: MM SCREENING [...] OV> 07/06/242010 DD/ 1015 TD/TT: 06/30/24 1029 Kiln Burner: us Shireen Krishnan MD IMG BI PROCEDURES Edited Result - Final * Hepatitis C Antibody with Reflex to HCV, RNA, Quantitative, Real-Time PCR (02/28/2024 11:10 AM EST) Hepatitis C Antibody Nonreactive Nonreactive [facility] Comment:Antibodies to HCV no t detected; does not exclude early acuteHCV infection. Blood Venous blood specimen / Unknown 02/28/2024 11:10 AM EST 02/28/2024 11:10 AM EST us Shireen Krishnan MD LAB BLOOD ORDERAB LES Final Result [facility] [address] [place] [phone] [phone] * Lipid Panel, Standard (02/28/2024 11:10 AM EST) Triglycerides 132 <150 mg/dL [facility] Comment:Desirable Triglyceri de: less than 150 mg/dLBorderline High Triglyceride 150-199 mg/dLHigh Triglyceride: 200-499 mg/dLVery High Triglyceride: greater than or equal to 5OO mg/dL Cholesterol 128 <200 mg/dL [facility] Comment:Desirable Cholestero l: less than 200 mg/dLBorderline High Cholesterol: 200-239 mg/dLHigh Cholesterol: greater than 239 mg/dL LDL Cholesterol Calculated 56 <100 mg/dL [facility] Comment:Desirable LDL: less than 100 mg/dLNear Optimal/Above Optimal LDL: 110- 129 mg/dLBorderline High LDL: 130-159 mg/dLHigh LDL: 160-189 mg/dLVery High LDL: greater than or equal to 190 mg/dL HDL Cholesterol 46 >40 mg/dL [facility] Comment:Desirable HDL: great er than 40 mg/dL Note: This HDL assay may give artificially low results in patients with liver disease. Blood Venous blood specimen / Unknown 02/28/2024 11:10 AM EST 02/28/2024 11:10 AM EST us Shireen Krishnan MD LAB BLOOD ORDERAB LES Final Result Performing Organization Address [facility] Co de Phone Number [facility] [address] [place] [phone] * Albumin, Random Urine W/Creatinine (02/28/2024 11:05 AM EST) Creatinine, Urine 80.33 mg/dL [facility] Microalbumin Urine <5.0 mg/L [facility] Microalbum Creatinine Ratio Ur TNP <30 ug/mg cr [facility] Comment:Unable to calculate albumin/creatinine ratio due to lowmicroalbumin or creatinine result. Urine (Urine, Random) 02/28/2024 11:05 AM EST 02/28/2024 12:03 PM EST us Shireen Krishnan MD LAB URINE ORDERAB LES Final Result Performing Organization Address [facility]/State/ZIP Co de Phone Number [facility] [address] [place] [phone] * HPV mRNA E6/E7 w/Reflex to HPV Genotypes 16, 18/45 (02/19/2023 10:03 AM EST) HPV nRNA E6/E7 Not Detected Not Detected [facility] Comment:Methodology: Transcr iption-Mediated AmplificationThis assay detects E6/E7 viral messenger RNA (mRNA) from 14high-risk HPV types (16,18,31,33,35,39,45,51,52,56,58,59,66,68).Cervical sources are required for HPV testing.If a vaginal source from a patient who has had atotal hysterectomy with removal of cervix wassubmitted, please contact the testing laboratoryfor alternative testing options.For additional information, please refer [email or web address](This link if provided for information/educational purposes only.)THIS TEST WAS PERFORMED AT:[facility] [employer] [place] [phone] AGUIRRE MD HPV mRNA E6/E7 [facility] HPV 16 RNA [facility] HPV 18/45 RNA [facility] 02/19/2023 10:0 3 AM EST 02/20/2023 11:30 AM EST [facility] CYTOLOGY ORDERABLES F inal Result [facility] [address] [place] [address] [phone] * Pap Smear (02/19/2023 10:03 AM EST) 02/19/2023 10:0 3 AM EST 02/20/2023 11:30 AM EST Narrative [facility] - 03/09/2023 12:47 PM EST ----- ------- Name: Shireen Tavarez Age/Sex: 62/F : 1960 Unit#: [id number] Attend Dr: WU ARROYO CNM Re02/19/23 Status: DEP [facility] Disch[facility] ----- ------- SPEC : [id number] RECD: 02/20/23 STATUS: LUCIA CALVERT NUM: [id number] NATALIE: 02/19/23-[address] [facility] [address]: WU ARROYO ENTERED: 02/20/23-1229 SP TYPE: Pap Smr OT DR: ORDERED: Pap Smear Interpretation Satisfactory for evaluation. Negative for intraepithelial lesion or malignancy. HPV mRNA E6/E7: NOT DETECTED This assay detects E6/E7 viral messenger RNA (mRNA) from 14 high-risk HPV types (16, 18, 31, 33, 35, 39, 45, 51, 52, 56, 58, 59, 66, 68) HPV testing performed by [facility], [place], [place]. See reference laboratory portion of the EMR for entire report. Clinical Information LMP: Postmenopausal Previous PAP test: 2017, ASCUS HPV neg Material Received ThinPrep-Cervical ----- ------- Signed (signature on file) [facility] ([facility]) 03/09/23 1247 ----- ------- END OF REPORT [facility] CYTOLOGY ORDERABLES F inal Result [facility] [address] [place] [address] [phone] * Colonoscopy (05/04/2016) Colonoscopy performed Historical Provider HEALTH MAINTENANCE Final Result from Last 3 Months or Most Recently Relevant to Health Maintenance Insurance [facility] [employer] OPTIONS (O D-SNP) YANCI ZAPATA [id number] Care Teams Still Tender Relationship Specialty Start Date End Date Shireen Stout MD [address] [place] [phone] PCP - General Internal Medicine 09/08/22 [facility] 09/22/24
--- OUTSIDE RECORDS SUMMARY | 2024-12-18 10:57 | XMS_ITS | Encounter Summary ---
Author Organization [employer] Address [address] [facility] [address]t [place] [address] Care Team Providers Care Welder Manufacture Name Role Phone Shireen Stout MD Primary Care Pro vider Reason for Visit * Reason Comments Med Refill Encounter Details Date Type Department Care Team (Late st Contact Info) Description 01/16/2023 Refill [facility] [address] [place], [place] [phone] Shireen Stout MD [address] [place] [address] Social History Tobacco Use Types Packs/Day Years [...] documented as of this encounter Care Teams Welder Manufacture Relationship Specialty Start Date End Date Shireen Stout MD [address] [place] [phone] PCP - General Internal Medicine 09/08/22 [facility] 09/22/24 documented as of this encounter
--- OUTSIDE RECORDS SUMMARY | 2024-12-18 10:57 | XMS_ITS | Encounter Summary ---
Author Organization [employer] Address [address] [facility] [address] [place] [address] Care Team Providers Care Mobile Sales Assistant Name Role Phone Shireen Stout MD Primary Care Pro vider Reason for Visit * Reason Onset Date Comments Results 12/13/2024 Encounter Details Date Type Department Care Team (Late st Contact Info) Description 12/13/2024 Results Follow-Up [facility] [address] [place] [address] Lisa Mccurdy MD [address] [place] [address] POCT Hgb A1c, POCT Glucose, Basic Metabolic Panel, Additional followed-up results: 4 Social History Tobacco Use Types Packs/Day Years [...] encounter Miscellaneous Notes * Telephone Encounter - Negra Mcdermott RN - 12/16/2024 9:20 AM EDT TC placed to [facility] and left a detailed VM to call back the office to inform of the pt starting on Jardiance 10 mg. Second TC placed to [facility] Cardiology to inform of the addition of torsemide 10 MG and empagliflozin (Jardiance) 10 MG to the pt medication list. The office was advised that the pt was recently seen for a HDF and the provider added these medications due to BLE swelling and fluid retention. The office confirmed that the pt has an appt with them on 12/18/2024 at 945. RN called the pt to inform and remind of the appt date and time and the pt was agreeable. * Result Encounter Note - Shireen Krishnan MD - 12/15/2024 2:53 PM EDT I called pt who request I speak w her . denies pt has anemia nor in urine nor in blood ,denies BRPR nor melenas I advise that pt comes to labs do do blood and stools test as ordered today to eval anemia ,can in part from hospitalizations and blood drawn ? But will r/o other etiologies Pt already on iron pills denies hypoglycemic events lowest 100s and highest 250s glucose --explained to thatpt is staring jardiance that will lower glucose ,will hold on changing her insulin w elevated CBGS now but advise in length to monitor glucose closely and inform her bench precision assembler or us if can not reach her Endo for insulin adjustment . -also given encephalopathy admissions I will decrease dose of gabapentin to 300 mg HS from BID dose-I informed medbox today and knows to bring Box for med change ------- -Please Negra can you inform her bench precision assembler that pt started jardiance 10 mg daily for Heart failure, pt on insulin and hx of labile DM ,so they can consider adjusting insulin if needed -please can you inform her loop tender about elevated ProBNP and addition of torsemide and jardiance and will let them obtain a new TTE at upcoming apt --From your note apt on 01/04/2025 -that is a Sunday , please can you confirm when is apt so inform pt Thanks * Telephone Encounter - Negra Mcdermott RN - 12/15/2024 9:25 AM EDT TC placed to the pt with S interpreter and translator #[id number] to inform of the message below from Dr. Mccurdy following HDF appt. The pt was asked about any upcoming appt's with [facility] cardiology and the pt confirmedan appt on 01/04/2025. The pt was advised that due to worsening leg swelling additional medications had been sent to the [facility] pharmacy including Jardiance and Torsemide. The pt was instructed to cotton picker these medications and inform the A nurse who is helping with medication management post hospitaldischarge. The pt states that she currently has a CGM even though medication list does not have onelisted. Pt is aware that blood sugar numbers have been elevated of late. ----- Message from Lisa Mccurdy MD sent at 12/13/2024 7:18 PM EDT ----- PCP Dr. Flor. Seen for hospital discharge follow-up. Please ask patient when her next appointment with loop tender ([facility]) is. Patient had echo recently, and she should have a follow up soon. If it is not within 1 mo, please help her schedule because of leg swelling, likely worsening heart failure. Please inform patient that I am sending 2 medications for her leg swelling and heart failure. They need to monitor sugar and BP closely. Please ask about GCM (her declined, but he also said he did not understand, but it seem like a language barrier). Thank you ----- Message ----- From: Fabián James MA Sent: 12/11/2024 9:44 AM EDT To: Lisa Mccurdy MD documented in this encounter Plan of Treatment Scheduled Orders Name Type Priority Associated Diagnoses Orde r Schedule Comprehensive Metabolic Panel Lab Routine Anemia, unspecified type Expected: 12/15/2024 (Approximate), Expires: 12/15/2025 CBC auto differential Lab Routine Anemia, unspecified type Expected: 12/15/2024 (Approximate), Expires: 12/15/2025 Vitamin B12 (Cobalamin) and Folate Panel, Serum Lab Routine Anemia, unspecified type Expected: 12/15/2024 (Approximate), Expires: 12/15/2025 Iron And Total Iron Binding Capacity Lab Routine Anemia, unspecified type Expected: 12/15/2024 (Approximate), Expires: 12/15/2025 Ferritin Lab Routine Anemia, unspecified type Expected: 12/15/2024 (Approximate), Expires: 12/15/2025 Fecal Globin By Immunochemistry Lab Routine Anemia, unspecified type Expected: 12/15/2024 (Approximate), Expires: 12/15/2025 documented as of this encounter Visit Diagnoses Diagnosis Anemia, unspecified type- Primary documented in this encounter Additional Health Concerns Assessment Noted Time PHQ-9 Depression Total Score: 11 025 9:44 AM EDT documented as of this encounter Care Teams Mobile Sales Assistant Relationship Specialty Start Date End Date Shireen Stout MD [address] [place] [phone] PCP - General Internal Medicine 09/08/22 [facility] 09/22/24 documented as of this encounter
--- OUTSIDE RECORDS SUMMARY | 2024-12-18 10:57 | XMS_ITS | Encounter Summary ---
Author Organization [employer] Address [address] [facility] 7t [place] [address] Care Team Providers Care Office Support Associate Name Role Phone Shireen Stout MD Primary Care Pro vider Reason for Visit * Reason Onset Date Comments Nurse Triage 12/03/2024 Encounter Details Date Type Department Care Team ([facility] st Contact Info) Description 12/03/2024 Telephone [facility] [address] [place] [address] Shireen Stout MD [address] [place] [address] Nurse Triage Social History Tobacco Use Types [...] have a UTI. Call to Pt with [facility] interpreter [place] [id number]. Pt is speaking for Pt who is [...] 7pm to come in the morning instead. Solid Waste Division Supervisor did indicate that on INstead Pt [...] The caller accepted this outcome. Pt is arabic soeaking Visiting nurse speaks yemeni documented in this encounter Plan of Treatment Not on file documented as of this encounter Visit Diagnoses Not on filedocumented in this encounter Additional Health Concerns Assessment Noted Time PHQ-9 Depression Total Score: 11 025 9:44 AM EDT documented as of this encounter Care Teams Office Support Associate Relationship Specialty Start Date End Date Shireen Stout MD [address] [place] [phone] PCP - General Internal Medicine 09/08/22 [facility] 09/22/24 documented as of this encounter
--- OUTSIDE RECORDS SUMMARY | 2024-12-18 10:57 | XMS_ITS | Encounter Summary ---
Author Organization [employer] Address [address] [facility] [address] [place] [address] Care Team Providers Care Cook Taco Name Role Phone Shireen Stout MD Primary Care Pro vider Encounter Details Date Type Department Care Team (Late st Contact Info) Description 12/13/2024 Orders Only [facility] [address] [place], [place] [phone] Lisa Mccurdy MD [address] [place], [place] [phone] Leg swelling (Primary Dx); Shortness of breath; Heart failure with mid-range ejection fraction (HFmEF) (CMS/HCC) Social History Tobacco Use Types Packs/Day [...] as of this encounter Visit Diagnoses Diagnosis Leg swelling- Primary Swelling of limb Shortness of breath Heart failure with mid-range ejection fraction (HFmEF) (CMS/HCC) documented in this encounter Additional Health Concerns Assessment Noted Time PHQ-9 Depression Total Score: 11 025 9:44 AM EDT documented as of this encounter Care Teams Cook Taco Relationship Specialty Start Date End Date Shireen Stout MD [address] [place] [phone] PCP - General Internal Medicine 09/08/22 [facility] 09/22/24 documented as of this encounter
--- OUTSIDE RECORDS SUMMARY | 2024-12-18 10:57 | XMS_ITS | Encounter Summary ---
Author Organization [employer] Address [address] [facility] 7t [place] [address] Care Team Providers Care Semiconductor Wafer Inspector Name Role Phone Shireen Stout MD Primary Care Pro vider Encounter Details Date Type Department Care Team (Late st Contact Info) Description 11/12/2024 Results Follow-Up [facility] [address] [place] [address] Shieren Stout MD [address] [place] [address] Us [facility] complete Social History Tobacco Use Types [...] documented as of this encounter Care Teams Semiconductor Wafer Inspector Relationship Specialty Start Date End Date Shireen Stout MD [address] [place] [phone] PCP - General Internal Medicine 09/08/22 [facility] 09/22/24 documented as of this encounter
--- OUTSIDE RECORDS SUMMARY | 2024-12-18 10:57 | XMS_ITS | Encounter Summary ---
Author Organization [employer] Address [address] [place] [address] 7t [place] [address] Care Team Providers Care Log Data Technician Name Role Phone Ramirez Tonja Reid SAP BPC DEVELOPER Primary Care Provider Shireen Acuña MD Primary Care Pro vider Encounter Details Date Type Department Care Team (Late st Contact Info) Description 06/27/2022 Abstract [facility] MEDICINE [address] [place] [address] Provider, MD Ja Social History Tobacco Use [...] Hemoglobin A1C 8.9(A) 4.0 - 6.0 % Comment:[facility] 04/20/2022 3:08 PM EST Narrative Eliza Salgado - 04/20/2022 3:08 PM EST A1c performed at [facility] us Historical Provider POINT OF CARE TEST ENTER/ EDIT ORDERABLES Final Result documented in this encounter Visit Diagnoses Not on filedocumented in this encounter Care Teams Log Data Technician Relationship Specialty Start Date End Date Tonja Guzmán FNP PCP - General Family Medicine 12/04/21 09/07/22 Shireen Stout MD [address] [place] [phone] PCP - General Internal Medicine 09/08/22 [facility] 09/22/24 documented as of this encounter
--- OUTSIDE RECORDS SUMMARY | 2024-12-18 10:57 | XMS_ITS | Encounter Summary ---
Author Organization [employer] Address [address] [place] [address] 7t [place] [address] Care Team Providers Care Information Technology Administrator Name Role Phone Shireen Stout MD Primary Care Pro vider Reason for Visit * Reason Comments Med Refill Encounter Details Date Type Department Care Team (Late st Contact Info) Description 01/10/2023 Refill [facility] MEDICINE [address] [place] [address] Tonja Guzmán, DIMAS Pulmonary emphysema, unspecified emphysema [...] documented as of this encounter Care Teams Information Technology Administrator Relationship Specialty Start Date End Date Shireen Stout MD [address] [place] [phone] PCP - General Internal Medicine 09/08/22 [facility] 09/22/24 documented as of this encounter
--- OUTSIDE RECORDS SUMMARY | 2024-12-18 10:57 | XMS_ITS | Patient Health Record ---
Author Organization [facility] Address [address] [place] [address] Care Team Providers Care Major Gifts Manager Name Role Phone Víctor Euceda Jr [phone] Reason For Referral No Information Plan Of Treatment No Information
--- OUTSIDE RECORDS SUMMARY | 2024-12-18 10:57 | XMS_ITS | Encounter Summary ---
Author Organization [employer] Address [address] [facility] 7t [place] [address] Care Team Providers Care Gate Cutter Name Role Phone Shireen Stout MD Primary Care Pro vider Reason for Visit * Reason Comments Med Refill Encounter Details Date Type Department Care Team ([facility] st Contact Info) Description 04/05/2023 Refill [facility] MEDICINE 230 [place], [place] [phone] Enedelia Coley MD [address] [place], [place] [phone] Social History Tobacco Use Types Packs/Day Years [...] documented as of this encounter Care Teams Gate Cutter Relationship Specialty Start Date End Date Shireen Stout MD [address] [place] [phone] PCP - General Internal Medicine 09/08/22 [facility] 09/22/24 documented as of this encounter
--- OUTSIDE RECORDS SUMMARY | 2024-12-18 10:57 | XMS_ITS | Encounter Summary ---
Author Organization [employer] Address [address] [facility] 7t [place] [address] Care Team Providers Care Furnace Worker Name Role Phone Shireen Stout MD Primary Care Pro vider Reason for Visit * Reason Comments Med Refill Encounter Details Date Type Department Care Team (Late st Contact Info) Description 08/04/2024 Refill [facility] MEDICINE [address] [place], [place] [phone] Shireen Stout MD [address] [place], [place] [phone] Social History Tobacco Use Types Packs/Day Years [...] documented as of this encounter Care Teams Furnace Worker Relationship Specialty Start Date End Date Shireen Stout MD [address] [place] [phone] PCP - General Internal Medicine 09/08/22 [facility] 09/22/24 documented as of this encounter
--- OUTSIDE RECORDS SUMMARY | 2024-12-18 10:57 | XMS_ITS | Encounter Summary ---
Author Organization [employer] Address [address] [facility] 7t [place] [address] Care Team Providers Care Board Design Engineer Name Role Phone Shireen Stout MD Primary Care Pro vider Reason for Visit * Reason Comments Med Refill Encounter Details Date Type Department Care Team (Late st Contact Info) Description 10/17/2023 Refill [facility] [address] [place], [place] [phone] Bruna Yusuf FNP [address] [place] [address] Social History Tobacco Use Types Packs/Day Years [...] documented as of this encounter Care Teams Board Design Engineer Relationship Specialty Start Date End Date Shireen Stout MD [address] [place] [phone] PCP - General Internal Medicine 09/08/22 [facility] 09/22/24 documented as of this encounter
--- OUTSIDE RECORDS SUMMARY | 2024-12-18 10:57 | XMS_ITS | Encounter Summary ---
Author Organization [employer] Address [address] [facility] 7t [place] [address] Care Team Providers Care Custom Seamstress Name Role Phone Shireen Stout MD Primary Care Pro vider Reason for Visit * Reason Comments Med Refill Encounter Details Date Type Department Care Team (Late st Contact Info) Description 01/16/2023 Refill [facility] MEDICINE [address] [place] [address] Tonja Guzmán FNP Social History Tobacco Use [...] documented as of this encounter Care Teams Custom Seamstress Relationship Specialty Start Date End Date Shireen Stout MD [address] [place] [phone] PCP - General Internal Medicine 09/08/22 [facility] 09/22/24 documented as of this encounter
--- OUTSIDE RECORDS SUMMARY | 2024-12-18 10:57 | XMS_ITS | Encounter Summary ---
Author Organization [email or web address] Address [address] [facility] 7t [place] [address] Care Team Providers Care Client Solutions Manager Name Role Phone Shireen Stout MD Primary Care Pro vider Reason for Visit * Reason Comments Med Refill Encounter Details Date Type Department Care Team (Late st Contact Info) Description 01/16/2023 Refill [facility] PEDS [address] [place], [place] [phone] Shireen Stout MD [address] [place] [address] Social History Tobacco Use Types Packs/Day Years [...] documented as of this encounter Care Teams Client Solutions Manager Relationship Specialty Start Date End Date Shireen Stout MD [address] [place] [address] PCP - General Internal Medicine 09/08/22 [facility] 09/22/24 documented as of this encounter
--- OUTSIDE RECORDS SUMMARY | 2024-12-18 10:58 | XMS_ITS | Clinical Summary ---
Author Organization [address] [facility] Address [address] [place] [address] Phone Care Team Providers Care Bread Jockey Name Role Phone Pranav Stout MD Primary Care Pro vider Allergies Active Allergy Reactions Criticality Noted Date Comments Jimmy Inhibitors 11/02/2023 Apple 11/02/2023 Romero 11/02/2023 [place] (Prunus Persica) 11/02/2023 Peanut 11/02/2023 Medications albuterol [...] AM EDT Office Visit Orthopedic Surgery - [address] [phone] Herson Fitzgerald, DPM Arthritis of both ankles (Primary Dx); Diabetic mononeuropathy simplex ([facility] V24, [facility] V28); Dermatophytosis of nail; Pain in toe of right foot; Pain in toe of left foot; Metatarsalgia of both feet; Type II diabetes mellitus with peripheral circulatory disorder ([facility] V24, [facility] V28) from Last 3 Months Immunizations Name Administration Dates Next Due COVID-19 (Moderna/Spikevax) 12yo and older 10/25 Medical History Medical History Date Comments DM (diabetes mellitus), type 2 (CMS/[facility] V24, [facility] V28) DX:DM (diabetes mellitus), t ype 2 (HCC) Alcoholic cirrhosis (CMS/HCC V24, CMS/[facility] V28) DX:Alcoholic cirrhosis (HCC) Other seasonal allergic rhinitis DX:Other seasonal allergic rhinitis Constipation DX:Constipation HTN (hypertension) DX:HTN (hyper tension) Pulmonary emphysema ([facility] V24, [facility] V28) DX:Pulmonary emphysema (HCC) Stage [...] AM EDT Office Visit Orthopedic Surgery - [place] [address] [address] Herson Fitzgerald DPM [address] [address] Health Maintenance Due Date Last [...] topic Insurance MEDICAID - [place] Care Teams Bread Jockey Relationship Specialty Start Date End Date Pranav Stout MD [address] [facility] 9 [place] [phone] PCP - General 08/16/23
--- OUTSIDE RECORDS SUMMARY | 2024-12-18 10:58 | XMS_ITS | Encounter Summary ---
Author Organization [employer] Address [address] [facility] 7t [place] [address] Care Team Providers Care Fine Chemicals Operator Name Role Phone Shireen Stout MD Primary Care Pro vider Reason for Visit * Reason Comments Med Refill Encounter Details Date Type Department Care Team (Late st Contact Info) Description 07/27/2023 Refill [facility] PEDS [address] [place], [place] [phone] Shireen Stout MD [address] [place] [address] Diabetic peripheral neuropathy associated with type 2 [...] with type 2 diabetes mellitus (CMS/[facility]) documented in this encounter Additional Health Concerns Assessment Noted Time PHQ-9 Depression Total Score: 5 12/16/19 23 2:02 PM EDT documented as of this encounter Care Teams Fine Chemicals Operator Relationship Specialty Start Date End Date Shireen Stout MD [address] [place] [phone] PCP - General Internal Medicine 09/08/22 [facility] 09/22/24 documented as of this encounter
--- OUTSIDE RECORDS SUMMARY | 2024-12-18 10:58 | XMS_ITS | Encounter Summary ---
Author Organization [employer] Address [address] [facility] 7t [place] [address] Care Team Providers Care Windows Laptop Technician Name Role Phone Shireen Stout MD Primary Care Pro vider Reason for Visit * Reason Comments Med Refill Encounter Details Date Type Department Care Team (Late st Contact Info) Description 07/27/2023 Refill [facility] PEDS [address] [place], [place] [phone] Shireen Stout MD [address] [place] [address] Diabetic peripheral neuropathy associated with type 2 [...] neuropathy associated with type 2 diabetes mellitus (CMS/[facility]) documented in this encounter Additional Health Concerns Assessment Noted Time PHQ-9 Depression Total Score: 5 12/16/19 23 2:02 PM EDT documented as of this encounter Care Teams Windows Laptop Technician Relationship Specialty Start Date End Date Shireen Stout MD [address] [place] [phone] PCP - General Internal Medicine 09/08/22 [facility] 09/22/24 documented as of this encounter
== END 2024-12-18 09:58 | disposition home or self-care (01) ==
LOC: HO.HOS 09:26
PROVIDERS: PCP Student in an Organized Health Care Education/Training Program; Visit Provider Orthopaedic Surgery
DX: M17.12 Unilateral primary osteoarthritis, left knee (principal); M25.562 Pain in left knee
CPT/HCPCS: 20610; 99213

== ENCOUNTER → 2024-12-18 09:25 | Outpatient (BNVA) | payer OTHER, SELFPAY | PROVIDERS: PCP Student in an Organized Health Care Education/Training Program; Visit Provider Orthopaedic Surgery | DX: M25.562 Pain in left knee (principal); M17.12 Unilateral primary osteoarthritis, left knee | CPT/HCPCS: 20610; 99212; J1010; J2003 ==

== ENCOUNTER 2025-01-15 14:17 | Outpatient (REF) | payer OTHER, SELFPAY ==
--- NOTE | ~2025-01-15 | XR_ITS ---
EXAMINATION: XR TOES, LEFT CLINICAL INFORMATION: L great toe swelling, pain and redness COMPARISON: None available. TECHNIQUE: 3 views of the left toes were obtained. FINDINGS: No true lateral was obtained. There are no fractures or dislocations. No joint effusion is identified. No bone, joint or soft tissue abnormality is demonstrated. XR/XR toe LT min 2V IMPRESSION: No acute bony or soft tissue abnormalities. Electronically signed by: Manjeet Cee MD 01/15/2025 04:20 PM EDT
== END 2025-01-15 14:18 | disposition home or self-care (01) ==
LOC: HO.HHCX 14:17
PROVIDERS: Visit Provider Family Medicine
DX: M79.675 Pain in left toe(s) (principal)
CPT/HCPCS: 73660

== ENCOUNTER → 2025-01-15 14:17 | Outpatient (BNV) | payer OTHER, SELFPAY | PROVIDERS: Visit Provider Radiology Diagnostic Radiology | DX: M79.89 Other specified soft tissue disorders (principal); M79.675 Pain in left toe(s) | CPT/HCPCS: 73660 ==

== ENCOUNTER 2025-01-23 13:09 | Outpatient (REF) | payer OTHER, SELFPAY ==
--- OUTSIDE RECORDS SUMMARY | 2024-11-19 12:16 | XMS_ITS | Continuity of Care Document ---
Author Organization [facility] Address [address] [place] [phone] Phone Care Team Providers Care Blueprint Cutter Name Role Phone Wilian ANTHONY, Tierney Unavailable [...] For Visit Diagnoses Date Provider [facility], [address] [place] [address], [id number], tel: [phone] [facility] [place] No Information 5 Wilian Monet. [address] [place] [address], [id number], [place]. tel: [phone] [facility] [address] [place] [address], [id number], [place] tel: [phone] [facility] Mexican Hat Abnormal mammogram 7 [facility] Senior Web Architect. [facility] [place], [address], [place]. tel: [phone] [facility], [address] [place] [address], [id number], [place] tel: [phone] [facility] [place] colon cancer screen (chief complaint)h ypertension (chief complaint)p ap test (chief complaint)m ammogram (chief complaint) Encounter for screening for respiratory tuberculosisBody mass index (BMI) 40.0-44.9, adultCervical cancer screeningOther screening mammogramColon cancer screeningBorderline systolic HTN 7 Osuji Nonyerem. [address], [place], [place], [facility], [place]. tel: [phone] [facility], [address], [place], [place], [id number], [place] tel: [phone] [facility] [place] No Information 7 [facility] Nurses. [address] [place], [address], [place]. tel: [phone] [facility], [address], [place], [place], [id number], tel: [phone] [facility] [place] General follow up (chief complaint)h ypertension (chief complaint)d iabetes/thy roid screen (chief complaint)m ammogram (chief complaint) Body mass index (BMI) 38.0-38.9, adultBorderline systolic HTNScreening for diabetes mellitusScreening for thyroid disorderOther screening mammogram 7 Osuji Nonyerem. [address], [place], [facility], [place]. tel: [phone] [facility], [address], [place], [place], [id number], [place] tel: [phone] [facility] [place] No Information 6 Osuji Nonyerem. [address], [place], [facility], [place]. tel: [phone] [facility], [address], [place], [place], [id number], [place] tel: [phone] [facility] [place] Physical (chief complaint)p reventive exam (chief complaint)r josiah (chief complaint)B P check (chief complaint) Body mass index (BMI) 40.0-44.9, adultEncounter for preventative adult health care exam with abnormal findingsScreening for diabetes mellitusScreening for thyroid disorderElevated blood-pressure reading, without diagnosis of hypertensionPsoriasis 6 Wilian Guzmanmattie. [address] [place], [address], [place]. tel:[phone] Family History Family Member Type Diagnosis Age At Onset No Information Payers Payer name Insurance type Covered green party ID Authoriza tion(s) No Information Social History Type Description Quantity Date Captured Comments Sex Female Smoking Status No Information Gender Identity Female Chief Complaint And Reason For Visit No Information Plan Of Treatment Date Type Action Status Goal MMR Vaccine. Due on due Goal [...] use as directe d Related to Psoriasis check labs and HIV t est today. aspirin daily encouraged. deferred. pap smear/mammogram next clinic visit Related to Encounter for preventative adult health care exam with abnormal findings D and E; goal BMI<25 Counseled regarding importance of weight loss. Related to Body mass index (BMI) 40.0-44.9, adult thyroid labs today Related to Sc reening for thyroid disorder A1c today... Related to Scree janice for diabetes mellitus Dietary management e ducation, guidance, and counseling Related to Body mass index (BMI) 40.0-44.9, adult Giving encouragement to exercise Related to Body mass index (BMI) 40.0-44.9, adult Assessments Type Assessment Date No Information
--- NOTE | ~2025-01-23 | US_ITS ---
EXAMINATION: US PELVIS TRANSABDOMINAL AND TRANSVAGINAL HISTORY: N94.89 - Other specified conditions associated with female genital organ... COMPARISON: Comparison is made with the prior examination dated 11/12/2024. Correlation is also made with a CT of the pelvis with contrast dated 11/11/2024. TECHNIQUE: Transabdominal and endovaginal real-time 2D calloway-scale ultrasound was performed. FINDINGS: Uterus: The uterus is normal in size, measuring 7.5 x 4.5 x 5.2 cm. There is an echogenic mass in the anterior aspect of the uterine body measuring 2.6 x 3.3 x 3.8 cm causing posterior shadowing. On additional review of the prior CT scan, there are no tiny foci of fat attenuation within the mass. 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 Endometrium: The endometrial stripe measures 3 mm in thickness. Right ovary: The right ovary measures 1.6 x 1.0 x 1.4 cm. The right ovary is normal in size and echotexture. Left ovary: The left not identified. Pelvic fluid: There is trace fluid in the cul-de-sac.. 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 Electronically signed by: Kaushik Ramirez MD 01/23/2025 03:09 PM EDT
--- OUTSIDE RECORDS SUMMARY | 2025-01-23 15:43 | XMS_ITS | Data Portability ---
Author Organization [employer], [facility] Address [address] [place] [phone] Care Team Providers Care Branch Manager Name Role Phone Unavailable OTHER HIM CCA OTHER Assessment Encounter Date Assessment Date Assessment LastModified by Organization Details LastModified Time 09/24/2024 09/24/2024 As noted, we were called to see this patient regarding concerns of confusion. Evaluation in the field was performed by my middle school special education teacher colleague, as noted above, I provided real-time direction and supervision for this visit. The evaluation revealed The patient is a 63 year old female with a past medical history of. Asthma, Chronic Kidney Disease, Cirrhosis, Diabetes Mellitus Type 2, Food Allergies, Hypertension WHO presents with increased confusion since she fell recently. The patient fell on Sunday while at the doctor's office. She was seen in the ER. After leaving the ER she's had increased confusion. No fever or chills. She's had some episodes of hypoxia. Patient does have a history of cirrhosis. .We could not tell if the patient had a CT scan of her head. She may have hit her head when she fell. Our plan is to transfer to the ER at [facility]. I called a quick report to the ER there. I discussed that she has a history of cirrhosis. She may need an ammonia level. She will also need CT scanning of the brain and further work up. Impression: acute confusion Plan: 1) transfer to the ER at [facility] Primary care, consider f/u er visit Disposition: to er [email or web address] Not available 09/24/2024 13:06:58 12/04/2024 12/04/2024 I provided real -time medical direction via phone for this encounter and was available for additional phone-based assistance as needed. I have reviewed and agree with the Assessment and Plan as documented by the Watermaster. Patient given the opportunity to ask questions. Our service contacted for an assessment of: Urinary symptoms As per above, patient with approximately 24 hours of dysuria, frequency. No history of frequent urinary tract infections however recently had one that responded well to cefpodoxime. Denies fever, chills, abdominal pain, back pain, flank pain. Per middle school special education teacher on the scene, Vital signs are stable and the patient is afebrile. Patient is nontoxic in appearance. UA is Impression: Urinary symptoms Plan: Levofloxin 500 mg po times 5 days. Has PCP appt in AM Allergies: reviewed We discussed the diagnostic uncertainty of home visits and the risk associated with this. In this case, the patient and I felt this to be an acceptable and reasonable amount of risk given the benefit of avoiding an ED visit. We discussed the need to seek care urgently/emergen tly in the setting of any new or worsening serious symptoms, particularly fever chills [email or web address] Not available 12/04/2024 10:46:18 Plan of Treatment Reminders Order Date Submit Date Provider Last Modified By Organization Details Last Modified Time Details Appointments None recorded. Lab urinalysis, dipstick 2024 025 [facility], [address] [place] [address], [id number] 11:45:52 Referral None recorded. Procedures None recorded. Surgeries None recorded. Imaging None recorded. Medication Orders levofloxaci n 500 mg tablet 2024 025 [facility], [address] [place] [address], [id number], 05:01:22 levofloxaci n 500 mg tablet 2024 025 [facility], [address] [place] [address], [id number], 05:01:22 Patient TargetsNo targets recorded. Patient InstructionsNo instructions recorded. Reason for Referral None Reported. Results Created Date Observation Date Name Description Value Unit Range Abnormal Flag Note LastModifiedBy Organization Detail LastModifiedTime Result Notes None recorded. Medical Equipment None Reported. Allergies Allergen ID Allergen Name Allergen Category Reaction Reaction Severity Criticality Documentation Date Start Date Code Code System Note Provider Name and Address Organization Details Recorded Time 41515 Product containin g angiotens in-conver ting enzyme inhibitor (product) medicatio n Not available Not available Not available 09/24/2024 61679 009 SNOMED Not Available [facility] - production 5 11:43:34 00817 cornell allergeni c extract food,medi cation Not available Not available Not available 12/03/2024 44872 1 RxNorm Not Available [facility] 17:34:23 87036 peanut allergeni c extract food,medi cation Not available Not available Not available 12/03/2024 57639 8 RxNorm Not Available [facility] 17:34:23 Medications Name Sig Start Date Stop Date Status Note LastModified by Organization Details LastModified Time atorvastati n 40 mg tablet TAKE 1 TABLET BY MOUTH AT BEDTIME active Not Available Not Available No t Available tizanidine 2 mg tablet TAKE 1 TABLET BY MOUTH TWICE DAILY DIRECTED active Not Available Not Available No t Available cetirizine 10 mg tablet TAKE 1 TABLET BY MOUTH EVERY MORNING active Not Available Not Available No t Available benzonatate 200 mg capsule TAKE 1 CAPSULE BY MOUTH TWICE DAILY NEEDED FOR COUGH active Not Available Not Available No t Available naltrexone 50 mg tablet TAKE 1 TABLET BY MOUTH EVERY MORNING active Not Available Not Available No t Available thiamine HCl (vitamin B1) 100 mg tablet TAKE 1 TABLET BY MOUTH EVERY MORNING active Not Available Not Available No t Available torsemide 10 mg tablet TAKE 1 TABLET BY MOUTH EVERY MORNING active Not Available Not Available No t Available clotrimazol e 1 % vaginal cream INSERT 1 APPLICATO RFUL VAGINALLY AT BEDTIME FOR 7 DAYS active Not Available Not Available No t Available aspirin 81 mg tablet,vannesa yed release TAKE 1 TABLET BY MOUTH EVERY DAY active Not Available Not Available No t Available fenofibrate micronized 134 mg capsule TAKE 1 CAPSULE BY MOUTH EVERY EVENING active Not Available Not Available No t Available pantoprazol e 20 mg tablet,vannesa yed release TAKE 1 TABLET BY MOUTH TWICE DAILY IN THE MORNING AND IN THE EVENING active Not Available Not Available No t Available metoclopram anyi 5 mg tablet TAKE 1 TABLET BY MOUTH EVERY 6 HOURS NEEDED FOR NAUSEA AND VOMITING OR HEADACHE active Not Available Not Available No t Available calcium 500 mg (as calcium carbonate 1,250 mg) tablet TAKE 1 TABLET BY MOUTH TWICE DAILY IN THE MORNING AND IN THE EVENING WITH MEALS active Not Available Not Available No t Available trazodone 100 mg tablet TAKE 1 TABLET BY MOUTH AT BEDTIME active Not Available Not Available No t Available ferrous sulfate 325 mg (65 mg iron) tablet TAKE 1 TABLET BY MOUTH EVERY MORNING ON SUNDAY, SUNDAY , AND SUNDAY active Not Available Not Available No t Available losartan 25 mg tablet TAKE 1 TABLET BY MOUTH EVERY MORNING active Not Available Not Available No t Available gabapentin 300 mg capsule TAKE 1 CAPSULE BY MOUTH TWICE DAILY IN THE MORNING AND AT BEDTIME active Not Available Not Available No t Available folic acid 1 mg tablet TAKE 1 TABLET BY MOUTH EVERY MORNING active Not Available Not Available No t Available mupirocin 2 % topical ointment APPLY TOPICALLY TO THE AFFECTED AREA(S) THREE TIMES DAILY FOR 10 DAYS active Not Available Not Available No t Available gabapentin 100 mg capsule TAKE 2 CAPSULES BY MOUTH TWICE DAILY IN THE MORNING AND EVENING active Not Available Not Available No t Available ergocalcife rol (vitamin D2) 1,250 mcg (50,000 unit) capsule TAKE 1 CAPSULE BY MOUTH ONCE WEEKLY ON Sunday active Not Available Not Available No t Available fluticasone 100 mcg-salmete rol 50 mcg/dose blistr powdr for inhalation INHALE 1 PUFF BY MOUTH TWICE DAILY. RINSE MOUTH AFTER USING. active Not Available Not Available No t Available levofloxaci n 500 mg tablet Take 1 tablet every day by oral route for 4 days. 12/15 completed Not Available Not Available Not Available sertraline 50 mg tablet TAKE 1 TABLET BY MOUTH EVERY MORNING active Not Available Not Available No t Available cholecalcif suma (vitamin D3) 125 mcg (5,000 unit) capsule TAKE 1 CAPSULE BY MOUTH EVERY MORNING active Not Available Not Available No t Available Ventolin HFA 90 mcg/actuati on aerosol inhaler INHALE 2 PUFFS EVERY 6 HOURS NEEDED FOR WHEEZING active Not Available Not Available No t Available insulin lispro (U-100) 100 unit/mL subcutaneou s pen USE THREE TIMES DAILY BEFORE MEALS PER SLIDING SCALE FOR BLOOD SUGAR 100-149 =5 UNITS, FOR BLOOD SUGAR 150-199 =7 UNITS, FOR BLOOD SUGAR 200-249 =9 UNITS, FOR BLOOD SUGAR 250-299 =11 UNITS, FOR BLOOD SUGAR 300-949 =13 UNITS, FOR BLOOD SUGAR 350-399 =15 UNITS. notify provider FOR FSBS < 70 OR > 400 active Not Available Not Available No t Available BD Ultra-Fine Short Pen Needle 31 gauge x 5/16 USE DIRECTED WITH INSULIN active Not Available Not Available No t Available FreeStyle Lite Strips USE DIRECTED TO TEST BLOOD SUGAR ONE OR TWO TIMES DAILY active Not Available Not Available No t Available Lantus Solostar U-100 Insulin 100 unit/mL (3 mL) subcutaneou s pen INJECT 30 UNITS SUBCUTANE OUSLY EVERY DAY AT BEDTIME active Not Available Not Available No t Available diclofenac 1 % topical gel APPLY 4 GRAMS TOPICALLY TO AFFECTED AREA(S) TWICE DAILY active Not Available Not Available No t Available Vitamin D3 50 mcg (2,000 unit) capsule TAKE 1 CAPSULE BY MOUTH EVERY MORNING active Not Available Not Available No t Available Myrbetriq 25 mg tablet,exte nded release TAKE 1 TABLET BY MOUTH EVERY MORNING DO NOT BREAK, CRUSH, DISSOLVE OR CHEW active Not Available Not Available No t Available TRUEplus Lancets 33 gauge TEST BLOOD SUGAR TWICE DAILY active Not Available Not Available No t Available Linzess 145 mcg capsule TAKE 1 CAPSULE BY MOUTH EVERY DAY active Not Available Not Available No t Available Invokana 300 mg tablet TAKE 1 TABLET BY MOUTH EVERY MORNING active Not Available Not Available No t Available Jardiance 10 mg tablet TAKE 1 TABLET BY MOUTH EVERY MORNING active Not Available Not Available No t Available Humulin R U-500 (Conc) Insulin Kwikpen 500 unit/mL (3 mL) subcutaneou s INJECT 130 UNITS SUBCUTANE OUSLY EVERY MORNING BEFORE BREAKFAST AND 85 UNITS SUBCUTANE OUSLY EVERY EVENING BEFORE SUPPER INJECT 30 MINUTES BEFORE MEALS active Not Available Not Available No t Available Linzess 72 mcg capsule TAKE 1 CAPSULE BY MOUTH EVERY MORNING active Not Available Not Available No t Available Baqsimi 3 mg/actuatio n nasal spray USE 1 SPRAY (3MG) IN ONE NOSTRIL FOR A PATIENT WITH SEVERE HYPOGLYCE RADHA WHO IS NOT RESPONSIV E AND UNABLE SELF-PANCHO T WITH GLUCOSE. AFTERWARD S TURN ON SIDE. MAY REPEAT IN 15MINUTES IF PATIENT DOES NOT RESPOND. active Not Available Not Available No t Available Vitals Date Recorded Respiratory rate Body temperature Heart rate Oxygen saturation Oxygen saturation in Arterial blood by Pulse oximetry Inhaled oxygen flow rate Systolic And Diastolic Provider Name and Address Organization Details Last Updated DateTime 5 18 /min 98.4 [degF] 68 /min 95 % 95 % 2 L/min 170/90 mm[Hg] Not Available [facility] - production 12:35:39 Date Recorded Respiratory rate Body temperature Body height Body weight Heart rate Oxygen saturation Oxygen saturation in Arterial blood by Pulse oximetry Systolic And Diastolic Provider Name and Address Organization Details Last Updated DateTime 5 14 /min 98.4 [degF] 157.48 cm 02677.8 g 64 /min 95 % 95 % 112/54 mm[Hg] Not Available [facility] - production 09:17:38 Social History None recorded. Functional Status None recorded. Mental Status None recorded. Family History Nothing Reported. Medical History No medical history recorded. Gynecological HistoryNo gynecological history recorded. Obstetrics History GPAL:G 0 P 0 0 0 0 Past Encounters Encounter ID Performer Location Encounter Start Date Encounter Closed Date Diagnosis/Indication Diagnosis SNOMED-CT Code Diagnosis ICD10 Code Diagnosis IMO Codes Diagnosis Note [id number] RANDOLPH SO MD [address] [phone] 09/24/2024 12:35:35 09/29/2024 14:31:59 Altered mental status 485592936 R41.82 [id number] Bria Shook MD [address] [phone] 12/04/2024 09:09:47 12/05/2024 12:18:07 Urinary system finding 442000261 R39.9 [id number] Health Concerns Section Related Observation LastModified by Organization Detai ls LastModified Time None Recorded Concern Status LastModified by Organization Details LastModified Time None Recorded Advance Directives Directive None Recorded Payers Insurance Date Sequence Insurance Name Policy Number Policy Muro Covered Member ID Muro Member ID Guarantor Name 12/04/2024 1 [facility] - DOS ON OR AFTER 2022 - DUAL ELIGIBLE - ASSISTED OPTIONS AND ONE CARE (MEDICARE REPLACEMENT/ADV ANTAGE - HMO) Shireen Tavarez [id number] Shireen Tavarez Notes Date Note Type Note Provider Name and Address Organization Details Recorded Time 09/24/2024 text/html ROS as noted in the HPI HPI: Patient Daughter called as patient fell while at [facility] last Sunday. Fell from seated walker to ground found to have been hypoxic. Daughter concerned as Mom seems off O2Sat at time of call on 02 @1.5LPM + 95%.All imaging at time of fall Negative. No urinary complaints. .................... .................... .................... .................... .................... .................... .................... . [facility] Nurse Triage Notes (Haylie Resendiz): Reason For Request: Fall Chief Complaints: Falls PMH: Asthma, Chronic Kidney Disease, Cirrhosis, Diabetes Mellitus Type 2, Food Allergies, Hypertension PMH Reviewed at 09/24/2024:43 Allergies Reviewed at 09/24/2024:43 Comments: HPI reviewed Food allergies: Apple juice cornell prunus persica, PB flavoring .................... .................... .................... .................... .................... .................... .................... . Watermaster Note From Ming Mercer: Dispatched to the call address for the [...] with good turgor, mucous membranes pink and moist, pupils PERRL, abd soft non tender/distended, +CMSx4, lungs CTA, -edema/swelling, afebrile. Pt able to pass FAST exam but did struggle and was confused at times as to what she was suppose to be doing. Pt was assessed. [facility] consulted. Pt advised to return to the ED for imaging. Family advised they would drive her as it was only a couple of minutes down the road. Family advised that I could call for an ambulance for her but they advised they would take her now. Red flags discussed. ALL times are approx. .................... .................... .................... .................... .................... .................... .................... . [facility] Consulted: Randolph So .................... .................... .................... .................... .................... .................... .................... . Disposition: Fulfilled Kavitha Retana MD [address] [facility],[address], [place], [phone], ALFRED Gallegos ALINEMICHELLE KNAPP 09/29/2024 10:11:22 12/04/2024 text/html HPI: [facility] notified that Pt has been having frequency, bladder and low back pain with urination, bad odor. Pt was just in hospital with AUD and is having confusion which may also be caused by UTI. .................... .................... .................... .................... .................... .................... .................... . [facility] Nurse Triage Notes (Leonie Judge): Reason For Request: urinary symptoms Chief Complaints: Urinary Symptoms PMH: Asthma, Chronic Kidney Disease, Cirrhosis, Diabetes Mellitus Type 2, Food Allergies, Hypertension, Allergic Rhinitis, Cigarette Smoker, COPD/Asthma, Depression, Emphysema, Anemia, Obesity, Osteoporosis, Other PMH Reviewed at 12/03/2024 - 17:34 Allergies Reviewed at 12/03/2024 - 17:34 Comments: HPI reviewed. 12/03 @ 2010- Unable to reach patient by phone. Per visit request, patient's would prefer visit for tomorrow, 12/04, if visit could not occur before 7pm today. Visit to be rescheduled for tomorrow 12/04 per spouse request from initial triage -Maureen Ramirez RN Watermaster Organization Information for Raoul Cardozo [employer] Legal Name: [facility] Address: [address] [place] [address], Inspector Subassemblies: Santiago Franz MD CLIA No.: [id number] Watermaster POC Test Results from Raoul Cardozo - ALS Urine Dipstick (09:17:49) Urine leukocytes: +++VANDANA Urine nitrites: ++NIT Urine urobilinogen: -URO Urine protein: 0.2PRO Urine pH: 5.5pH Urine blood: -BLO Urine specific gravity: 1.005SG Urine ketones: -KET Urine bilirubin: -RADHA Urine glucose: ++GLU Blood Glucose Measurement (09:22:17) Blood Glucose: 257mg/dL .................... .................... .................... .................... .................... .................... .................... . Watermaster Note From Raoul Cardozo: Patient alert and oriented complains of frequent burning urination with inability to empty and increase pressure time weeks. Patient reports she was treated for same in the SNF. She was released from the SNF 5 days ago. Was inpatient times [...] as ordered without complication, using five rights., [facility] [place] prescribe more to patient s local pharmacy. Patient reports she has PCP appointment tomorrow. Red flags patient education discussed. Patient and caregiver demonstrating understanding of care and plan. Patient given an opportunity to ask questions. [facility] Lab Orders: urinalysis, dipstick: Performed .................... .................... .................... .................... .................... .................... .................... . [facility] Consulted: Bria Shook .................... .................... .................... .................... .................... .................... .................... . Disposition: Fulfilled Bria Shook MD [address] [facility],[address] [facility], [place], [phone], [employer] 12/04/2024 10:48:59 OBGyn Episode No OBEpisode recorded.
--- OUTSIDE RECORDS SUMMARY | 2025-01-23 15:43 | XMS_ITS | Encounter Summary ---
Author Organization [employer] Address [address] [facility] [address] [place] [address] Care Team Providers Care Strapper Operator Name Role Phone Shireen Stout MD Primary Care Pro vider Reason for Visit * Reason Comments Med Refill Encounter Details Date Type Department Care Team (Late st Contact Info) Description 01/16/2023 Refill [facility] [address] [place], [place] [phone] Shireen Stout MD [address] [place] [address] Social History Tobacco Use Types Packs/Day Years [...] Care Team (Late st Contact Info) Description 02/25/2025 11:15 AM EST Office Visit [facility] [address] [place] [phone] Shireen Stout MD [address] [place] [phone] 03/17/2025 11:00 AM EST Office Visit [address] [address] Rhoda Melvin CNM [address] [place] [phone] documented as of this encounter Visit Diagnoses Not on filedocumented in this encounter Additional Health Concerns Assessment Noted Time PHQ-9 Depression Total Score: 5 12/16/19 23 2:02 PM EDT documented as of this encounter Care Teams Strapper Operator Relationship Specialty Start Date End Date Shireen Stout MD [address] [place] [phone] PCP - General Internal Medicine 09/08/22 [facility] 09/22/24 12/28/24 documented as of this encounter
--- OUTSIDE RECORDS SUMMARY | 2025-01-23 15:43 | XMS_ITS | Encounter Summary ---
Author Organization [employer] Address [address] [facility] [address]t [place] [address] Care Team Providers Care Program Review Director Name Role Phone Shireen Stout MD Primary Care Pro vider Reason for Visit * Reason Comments Med Refill Encounter Details Date Type Department Care Team (Late st Contact Info) Description 08/04/2024 Refill [facility] [address] [place], [place] [phone] Shireen Stout MD [address] [place], [place] [phone] Social History Tobacco Use Types Packs/Day Years [...] the past 12 months, has t he [employer], gas, oil or water company threatened to [...] Description 02/25/2025 11:15 AM EST Office Visit [facility] [address] [place] [phone] Shireen Stout MD [address] [place] [address] 03/17/2025 11:00 AM EST Office Visit [facility] [address] [place] [phone] Rhoda Melvin CNM [address] [place] [phone] documented as of this encounter Visit Diagnoses Not on filedocumented in this encounter Additional Health Concerns Assessment Noted Time PHQ-9 Depression Total Score: 3 03/05/20 24 9:07 AM EST documented as of this encounter Care Teams Program Review Director Relationship Specialty Start Date End Date Shireen Stout MD [address] [place] [phone] PCP - General Internal Medicine 09/08/22 [facility] 09/22/24 12/28/24 documented as of this encounter
--- OUTSIDE RECORDS SUMMARY | 2025-01-23 15:43 | XMS_ITS | Encounter Summary ---
Author Organization [employer] Address [address] [place] [address] [address] [place] [address] Care Team Providers Care Senior Web Services Developer Name Role Phone Shireen Stout MD Primary Care Pro vider Reason for Visit * Reason Comments Med Refill Encounter Details Date Type Department Care Team (Late st Contact Info) Description 01/10/2023 Refill [facility] [address] [place], [place] [phone] Tonja Guzmán, DIMAS Pulmonary emphysema, unspecified emphysema [...] Description 02/25/2025 11:15 AM EST Office Visit [facility] [address] [place] [phone] Shireen Stout MD [address] [place] [address] 03/17/2025 11:00 AM EST Office Visit [facility] [address] [place] [phone] Rhoda Melvin CNM [address] [place] [address] documented as of this encounter Visit Diagnoses Diagnosis Pulmonary emphysema, unspecified emphysema type documented in this encounter Additional Health Concerns Assessment Noted Time PHQ-9 Depression Total Score: 5 12/16/19 23 2:02 PM EDT documented as of this encounter Care Teams Senior Web Services Developer Relationship Specialty Start Date End Date Shireen Stout MD [address] [place] [phone] PCP - General Internal Medicine 09/08/22 [facility] 09/22/24 12/28/24 documented as of this encounter
--- OUTSIDE RECORDS SUMMARY | 2025-01-23 15:43 | XMS_ITS | Encounter Summary ---
Author Organization [employer] Address [address] [place] [address] 7t [place] [address] Care Team Providers Care Road Design Engineer Name Role Phone Shireen Stout MD Primary Care Pro vider Reason for Referral * Consultation (Routine) - Authorized Specialty Diagnoses / Procedures Referred By Contac t Referred To Contact Podiatry Diagnoses Type 2 diabetes mellitus with hyperglycemia, without long-term current use of insulin (HCC) Shireen Stout MD [address] [place] [address] Phone: tel: fax: Herson Fitzgerald DPM [address] [place] [phone] Phone: tel: fax: Referral ID Status Reason Start Date Expiration Date Visits Requested Visits Authorized [id number] Authorized Specialty Services Required 01/22/2026 1 1 Encounter Details Date Type Department Care Team (Late st Contact Info) Description 01/22/2025 Orders Only [facility] MEDICINE [address] [place] [address] Shireen Stout MD [address] [place] [address] Type 2 diabetes mellitus with hyperglycemia, without long-term current use of insulin (HCC) (Primary Dx) Social History Tobacco Use Types Packs/Day Years [...] Description 02/25/2025 11:15 AM EST Office Visit [facility] MEDICINE [address] [place] [address] [phone] Shireen Stout MD [address] [place] [address] [phone] 03/17/2025 11:00 AM EST Office Visit [facility] MEDICINE [address] [place] [address] [phone] Rhoda Melvin CNM [address] [place], [place] [phone] Scheduled Referrals Name Type Priority Associated Diagnoses Orde r Schedule Referral to Podiatry Outpatient Referral Routine Type 2 diabetes mellitus with hyperglycemia, without long-term current use of insulin (HCC) Expected: 01/22/2025 (Approximate), Expires: 01/22/2026 documented as of this encounter Procedures Procedure Name Priority Date/Time Associated Diagnosis Comments US PELVIS TRANSVAGINAL Routine 01/23/2025 2:18 PM EDT documented in this encounter Results * US Pelvis Transvaginal (01/23/2025 2:18 PM EDT) Anatomical Region Laterality Modality Pelvis Ultrasound 01/23/2025 2:18 PM EDT Narrative 01/23/2025 3:12 PM EDT [address] [address] Ultrasound Report Signed Patient: Shireen Tavarez MR#: [id number] 1 : 1960 Acct:[id number] Age/Sex: 64 / F ADM Date: 01/23/25 Loc: HO.US Attending Dr: Melchor Nunn MD Ordering Physician: Melchor Nunn MD Date of Service: 01/23/25 Procedure(s): US pelvic and transvaginal Accession Number(s): [id number] cc: Shireen Stout MD; Melchor Nunn MD Reason for Exam: N94.89 - Other specified conditions associated with female genital organ... EXAMINATION: US PELVIS TRANSABDOMINAL AND TRANSVAGINAL HISTORY: N94.89 - Other specified conditions associated with female genital organ... COMPARISON: Comparison is made with the prior examination dated 11/12/2024. Correlation is also made with a CT of the pelvis with contrast dated 11/11/2024. TECHNIQUE: Transabdominal and endovaginal real-time 2D calloway-scale ultrasound was performed. FINDINGS: Uterus: The uterus is normal in size, measuring 7.5 x 4.5 x 5.2 cm. There is an echogenic mass in the anterior aspect of the uterine body measuring 2.6 x 3.3 x 3.8 cm causing posterior shadowing. On additional review of the prior CT scan, there are no tiny foci of fat attenuation within the mass. 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 Endometrium: The endometrial stripe measures 3 mm in thickness. Right ovary: The right ovary measures 1.6 x 1.0 x 1.4 cm. The right ovary is normal in size and echotexture. Left ovary: The left not identified. Pelvic fluid: There is trace fluid in the cul-de-sac.. 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 Electronically signed by: Kaushik Ramirez MD 01/23/2025 03:09 PM EDT Dictated By: Kaushik Ramirez MD Signed By: <Electronically signed by Kaushik Ramirez MD in OV> 01/23/25 1509 DD/ 1418 TD/TT: 01/23/25 1435 Disc Sander: Procedure Note Donotuseinterpreter, Image - 01/23/[address] [address] Ultrasound Report Signed Patient: Hunter Tavarez#: [id number] 1 : 9Acct:[id number] Age/Sex: 64 / FADM Date: 01/23/25 Loc: HO.US Attending Dr: Melchor Nunn MD Ordering Physician: Melchor Nunn MD Date of Service: 01/23/25 Procedure(s): US pelvic and transvaginal Accession Number(s): [id number] cc: Shireen Stout MD; Melchor Nunn MD Reason for Exam: N94.89 - Other specified conditions associated withfemale genital organ... EXAMINATION: US PELVIS TRANSABDOMINAL AND TRANSVAGINAL HISTORY: N94.89 - Other specified conditions associated with female genital organ... COMPARISON: Comparison is made with the prior examination dated 11/12/2024. Correlation is also made with a CT of the pelvis with contrast dated 11/11/2024. TECHNIQUE: Transabdominal and endovaginal real-time 2D calloway-scale ultrasound was performed. FINDINGS: Uterus: The uterus is normal in size, measuring 7.5 x 4.5 x 5.2 cm. There is an echogenic mass in the anterior aspect of the uterine body measuring 2.6 x 3.3 x 3.8 cm causing posterior shadowing. On additional review of the prior CT scan, there are no tiny foci of fat attenuation within the mass. 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 Endometrium: The endometrial stripe measures 3 mm in thickness. Right ovary: The right ovary measures 1.6 x 1.0 x 1.4 cm. The right ovary is normal in size and echotexture. Left ovary: The left not identified. Pelvic fluid: There is trace fluid in the cul-de-sac.. 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 Electronically signed by: Kaushik Ramirez MD 01/23/2025 03:09 PM EDT Dictated By: Kaushik Ramirez MD Signed By: <Electronically signed by Kaushik Ramirez MD in OV> 01/23/25 1509 DD/ 1418 TD/TT: 01/23/25 1435 Disc Sander: [facility] External Provider IMG US PROCEDURES Final Result documented in this encounter Visit Diagnoses Diagnosis Type 2 diabetes mellitus with hyperglycemia, without long-term current use of insulin (HCC)- Primary documented in this encounter Additional Health Concerns Assessment Noted Time PHQ-9 Depression Total Score: 11 025 9:44 AM EDT documented as of this encounter Care Teams Road Design Engineer Relationship Specialty Start Date End Date Shireen Stout MD [address] [place] [phone] PCP - General Internal Medicine 09/08/22 documented as of this encounter
--- OUTSIDE RECORDS SUMMARY | 2025-01-23 15:43 | XMS_ITS | Encounter Summary ---
Author Organization [employer] Address [address] [facility] 7t [place] [address] Care Team Providers Care Scullion Chief Name Role Phone Shireen Stout MD Primary Care Pro vider Reason for Visit * Reason Comments Med Refill Encounter Details Date Type Department Care Team (Late st Contact Info) Description 01/16/2023 Refill [facility] MEDICINE [address] [place] [address] Tonja Guzmán FNP Social History Tobacco Use [...] Description 02/25/2025 11:15 AM EST Office Visit [facility] MEDICINE [address] [place] [phone] Shireen Stout MD [address] [place] [address] 03/17/2025 11:00 AM EST Office Visit [address] [address] Rhoda Melvin CNM [address] [place] [phone] documented as of this encounter Visit Diagnoses Not on filedocumented in this encounter Additional Health Concerns Assessment Noted Time PHQ-9 Depression Total Score: 5 12/16/19 23 2:02 PM EDT documented as of this encounter Care Teams Scullion Chief Relationship Specialty Start Date End Date Shireen Stout MD [address] [place] [address] [phone] PCP - General Internal Medicine 09/08/22 [facility] [facility] 09/22/24 12/28/24 documented as of this encounter
--- OUTSIDE RECORDS SUMMARY | 2025-01-23 15:43 | XMS_ITS | Encounter Summary ---
Author Organization [employer] Address [address] [facility] 7t [place] [address] Care Team Providers Care Hopper Operator Name Role Phone Shireen Stout MD Primary Care Pro vider Reason for Visit * Reason Onset Date Comments Referral 01/22/2025 Encounter Details Date Type Department Care Team ([facility] st Contact Info) Description 01/22/[address] [facility] MEDICINE [address] [place] [address] Shireen Stout MD [address] [place] [address] Referral Social History Tobacco Use Types Packs/Day Years [...] encounter Miscellaneous Notes * Telephone Encounter - Verito Garcia - 01/22/2025 2:23 PM EDT Tc from [facility] requesting a referral for sod stripper Contact Noelle at [phone] documented in this encounter Plan of Treatment Upcoming Encounters Date Type Department Care Team (Late st Contact Info) Description 02/25/2025 11:15 AM EST Office Visit [facility] MEDICINE [address] [place] [phone] Shireen Stout MD [address] [place] [phone] 03/17/2025 11:00 AM EST Office Visit [facility] MEDICINE [address] [place] [address] Rhoda Melvin CNM [address] [place] [address] documented as of this encounter Visit Diagnoses Not on filedocumented in this encounter Additional Health Concerns Assessment Noted Time PHQ-9 Depression Total Score: 11 025 9:44 AM EDT documented as of this encounter Care Teams Hopper Operator Relationship Specialty Start Date End Date Shireen Stout MD [address] [place] [address] PCP - General Internal Medicine 09/08/22 documented as of this encounter
--- OUTSIDE RECORDS SUMMARY | 2025-01-23 15:43 | XMS_ITS | Encounter Summary ---
Author Organization [employer] Address [address] [facility] 7t [place] [address] Care Team Providers Care Museum Exhibit Designer Name Role Phone Shireen Stout MD Primary Care Pro vider Reason for Visit * Reason Comments Med Refill Encounter Details Date Type Department Care Team (Late st Contact Info) Description 01/16/2023 Refill [facility] MED & PEDS [address] [place], [place] [phone] Shireen Stout MD [address] [place] [address] Social History Tobacco Use Types Packs/Day Years [...] Description 02/25/2025 11:15 AM EST Office Visit [facility] MEDICINE [address] [place] [phone] Shireen Stout MD [address] [place] [address] 03/17/2025 11:00 AM EST Office Visit [address] [address] Rhoda Melvin CNM [address] [place] [phone] documented as of this encounter Visit Diagnoses Not on filedocumented in this encounter Additional Health Concerns Assessment Noted Time PHQ-9 Depression Total Score: 5 12/16/19 23 2:02 PM EDT documented as of this encounter Care Teams Museum Exhibit Designer Relationship Specialty Start Date End Date Shireen Stout MD [address] [place] [phone] PCP - General Internal Medicine 09/08/22 [facility] 09/22/24 12/28/24 documented as of this encounter
--- OUTSIDE RECORDS SUMMARY | 2025-01-23 15:43 | XMS_ITS | Encounter Summary ---
Author Organization [employer] Address [address] [facility] 7t [place] [address] Care Team Providers Care Sales Financial Analyst Name Role Phone Shireen Stout MD Primary Care Pro vider Encounter Details Date Type Department Care Team ([facility] st Contact Info) Description 01/08/2025 Telephone [facility] MEDICINE [address] [place], [place] [phone] Shireen Stout MD [address] [place], [place] [phone] Social History Tobacco Use Types Packs/Day Years [...] encounter Miscellaneous Notes * Telephone Encounter - Nicolas Bautista - 01/08/2025 4:37 PM EDT Tc from Flasher with [employer] [facility] requesting status on face to face documents. documented in this encounter Plan of Treatment Upcoming Encounters Date Type Department Care Team (Late st Contact Info) Description 02/25/2025 11:15 AM EST Office Visit [facility] MEDICINE [address] [place] [phone] Shireen Stout MD [address] [place] [address] 03/17/2025 11:00 AM EST Office Visit [facility] MEDICINE [address] [place] [address] Rhoda Melvin CNM [address] [place] [phone] documented as of this encounter Visit Diagnoses Not on filedocumented in this encounter Additional Health Concerns Assessment Noted Time PHQ-9 Depression Total Score: 11 025 9:44 AM EDT documented as of this encounter Care Teams Sales Financial Analyst Relationship Specialty Start Date End Date Shireen Stout MD [address] [place] [phone] PCP - General Internal Medicine 09/08/22 documented as of this encounter
--- OUTSIDE RECORDS SUMMARY | 2025-01-23 15:44 | XMS_ITS | Patient Health Record ---
Author Organization [facility] Address [address] [place] [address] Care Team Providers Care Director Of Student Services Name Role Phone Víctor Euceda Jr Reason For Referral No Information Plan Of Treatment No Information
--- OUTSIDE RECORDS SUMMARY | 2025-01-23 15:44 | XMS_ITS | Encounter Summary ---
Author Organization [employer] Address [address] [facility] 7t [place] [address] Care Team Providers Care Vacuum Bottle Assembler Name Role Phone Shireen Stout MD Primary Care Pro vider Reason for Visit * Reason Comments Med Refill Encounter Details Date Type Department Care Team (Late st Contact Info) Description 07/27/2023 Refill [facility] CHC MED & PEDS [address] [place], [place] [phone] Shireen Stout MD [address] [place] [address] Diabetic peripheral neuropathy associated with type 2 [...] Description 02/25/2025 11:15 AM EST Office Visit [facility] MEDICINE [address] [place] [phone] Shireen Stout MD [address] [place] [address] 03/17/2025 11:00 AM EST Office Visit [address] [address] [address] [address] documented as of this encounter Visit Diagnoses Diagnosis Diabetic peripheral neuropathy associated with type 2 diabetes mellitus (HCC) documented in this encounter Additional Health Concerns Assessment Noted Time PHQ-9 Depression Total Score: 5 12/16/19 23 2:02 PM EDT documented as of this encounter Care Teams Vacuum Bottle Assembler Relationship Specialty Start Date End Date Shireen Stout MD [address] [place] [phone] PCP - General Internal Medicine 6/2/23 [facility] 09/22/24 12/28/24 documented as of this encounter
--- OUTSIDE RECORDS SUMMARY | 2025-01-23 15:44 | XMS_ITS | Encounter Summary ---
Author Organization [employer] Address [address] [facility] 7t [place] [address] Care Team Providers Care Locomotive Oiler Name Role Phone Shireen Stout MD Primary Care Pro vider Reason for Visit * Reason Comments Med Refill Encounter Details Date Type Department Care Team (Late st Contact Info) Description 07/27/2023 Refill [facility] MED [facility] PEDS [address] [place], [place] [phone] Shireen Stout MD [address] [place] [address] Diabetic peripheral neuropathy associated with type 2 [...] Description 02/25/2025 11:15 AM EST Office Visit [facility] MED[facility]INE [address] [place] [address] Shireen Stout MD [address] [place] [phone] 03/17/2025 11:00 AM EST Office Visit [address] [address] Rhoda Melvin [address] [address] documented as of this encounter Visit Diagnoses Diagnosis Diabetic peripheral neuropathy associated with type 2 diabetes mellitus (HCC) documented in this encounter Additional Health Concerns Assessment Noted Time PHQ-9 Depression Total Score: 5 12/16/19 23 2:02 PM EDT documented as of this encounter Care Teams Locomotive Oiler Relationship Specialty Start Date End Date Shireen Stout MD [address] [place] [phone] PCP - General Internal Medicine 6/2/23 [facility] 09/22/24 12/28/24 documented as of this encounter
--- OUTSIDE RECORDS SUMMARY | 2025-01-23 15:44 | XMS_ITS | Encounter Summary ---
Author Organization [employer] Address [address] [facility] 7t [place] [address] Care Team Providers Care Registered Associate Name Role Phone Shireen Stout MD Primary Care Pro vider Encounter Details Date Type Department Care Team (Late st Contact Info) Description 12/13/2024 Orders Only [facility] MEDICINE [address] [place], [place] [phone] Lisa Mccurdy MD [address] [place], [place] [phone] Leg swelling (Primary Dx); Shortness of breath; [...] Description 02/25/2025 11:15 AM EST Office Visit [facility] MEDICINE [address] [place] [phone] Shireen Stout MD [address] [place] [phone] 03/17/2025 11:00 AM EST Office Visit [facility] MEDICINE [address] [place] [address] Rhoda Melvin CNM [address] [place] [address] documented as of this encounter Visit Diagnoses Diagnosis Leg swelling- Primary Swelling of limb Shortness of breath Heart failure with mid-range ejection fraction (HFmEF) ([facility]) documented in this encounter Additional Health Concerns Assessment Noted Time PHQ-9 Depression Total Score: 11 025 9:44 AM EDT documented as of this encounter Care Teams Registered Associate Relationship Specialty Start Date End Date Shireen Stout MD [address] [place] [phone] PCP - General Internal Medicine 09/08/22 [employer] [facility] 09/22/24 12/28/24 documented as of this encounter
--- OUTSIDE RECORDS SUMMARY | 2025-01-23 15:44 | XMS_ITS | Clinical Summary ---
Author Organization [employer] Address [address] [place] [address] [address] [place] [address] Care Team Providers Care Control Room Helper Name Role Phone Shireen Stout MD Primary Care Pro vider Allergies Active Allergy Reactions Criticality Noted Date Comments Jimmy Inhibitors 03/21/2010 Apple Juice 11/27/2011 Other reaction(s): Cough, scratchy throat Romero 01/05/2021 Flavoring Agent Itching 01/15/2025 peach Peanut Butter Flavoring Agent (Non-Screening) Hives,Swelling 11/27/2011 [...] eye twice daily Active TRUEplus Lancets [facility]G [facility] Test blood sugar twice daily as directed Active docusate sodium (Colace) 100 MG capsule Take 100 mg by mouth if needed in the morning and at bedtime for constipation. Active Myrbetriq 25 MG 24 hr tablet TAKE 1 TABLET BY MOUTH EVERY MORNING DO NOT BREAK, CRUSH, DISSOLVE OR CHEW 09/27/19 23 Active EPINEPHrine (Epipen) 0.3 MG/0.3ML injection syringe Inject 0.3 mL (0.3 mg) as directed 1 (one) time if needed for anaphylaxis for up to 1 dose. Inject into upper leg. Call 911 after use. 1 each 10/26/19 23 Active Reguloid 28.3 % powder TAKE 1 TABLESPOONFUL IN FULL GLASS OF WATER ONCE DAILY NEEDED FOR CONSTIPATION 1107 g 2 02/14/20 23 Active ammonium lactate (Amlactin) 12 % creamIndications:T hyroid nodule,Keratosis pilaris Apply topically every 12 (twelve) hours. 140 g 11 02/22/20 23 Active Diclofenac Sodium 1 % gel Apply 1 Application topically if needed each day (pain in legs). 50 g 03/05/20 24 Active thiamine (Vitamin B-1) 100 MG tablet TAKE 1 TABLET BY MOUTH EVERY MORNING 90 tablet 2 07/10/19 25 Active folic acid (Folvite) 1 MG tablet TAKE 1 TABLET BY MOUTH EVERY MORNING 90 tablet 2 07/10/19 25 Active Oyster Shell Calcium 500 MG tablet TAKE 1 TABLET BY MOUTH TWICE DAILY IN THE MORNING AND IN THE EVENING WITH MEALS 180 tablet 2 07/10/19 25 Active cetirizine (ZyrTEC) 10 MG tabletIndications: Seasonal allergic rhinitis, unspecified trigger TAKE 1 TABLET BY MOUTH EVERY MORNING 90 tablet 08/12/19 25 Active Ferrous Sulfate (iron) 325 (65 Fe) MG tablet TAKE 1 TABLET BY MOUTH EVERY MORNING ON SUNDAY, SUNDAY AND SUNDAY 13 tablet 5 08/12/19 25 Active benzonatate (Tessalon) 200 MG capsule TAKE 1 CAPSULE BY MOUTH TWICE DAILY NEEDED FOR COUGH 07/09/19 25 Active Baqsimi One Pack 3 MG/DOSE nasal powder See Instructions, 3 mg Once To be use for hypoglycemic emergency by family member or accompanying person, if blood glucoses less than 60 and unconscious. Please call 911 after use of glucagon. E11.9, # 1 each, 0 Refills, Soft Stop, 06/18/24 12:20:00 PM EDT, [facility], Partial fill upon patient request if the prescription is for a schedule II opioid drug., 156, cm, 06/18/24 9:02:00 EDT, Height 06/19/19 25 Active albuterol 108 (90 Base) MCG/ACT inhalerIndications :Seasonal allergic rhinitis, unspecified trigger Inhale 2 puffs every 6 (six) hours if needed for wheezing. 18 g 2 08/22/19 25 026 Active linaCLOtide (Linzess) 72 MCG capsule Take 72 mcg by mouth before breakfast. Do not crush or chew. Active losartan (Cozaar) 25 MG tablet TAKE 1 TABLET BY MOUTH EVERY MORNING 90 tablet 1 09/10/19 25 Active pantoprazole (ProtoNix) 20 MG EC tabletIndications: Dysphagia, unspecified type TAKE 1 TABLET BY MOUTH TWICE DAILY IN THE MORNING AND IN THE EVENING 180 tablet 1 09/10/19 25 Active sertraline (Zoloft) 50 MG tablet TAKE 1 TABLET BY MOUTH EVERY MORNING 30 tablet 5 09/13/19 25 Active atorvastatin (Lipitor) 40 MG tablet TAKE 1 TABLET BY MOUTH AT BEDTIME 90 tablet 1 10/11/19 25 Active fenofibrate micronized (Lofibra) 134 MG capsuleIndications :Mixed hyperlipidemia TAKE 1 CAPSULE BY MOUTH EVERY EVENING 90 capsule 1 11/13/19 25 Active Fluticasone-Salmet suma 100-50 MCG/ACT aerosol powder INHALE 1 PUFF BY MOUTH TWICE DAILY. RINSE MOUTH AFTER USING. 12/02/19 25 Active Lantus SoloStar 100 UNIT/ML pen Inject 30 Units under the skin at bedtime. 11/05/19 25 Active insulin pen needle (BD Pen Needle Short Ultrafine) 31G X 8 mm misc USE DIRECTED WITH INSULIN 08/21/19 25 Active tiZANidine (Zanaflex) 2 MG tablet Take 2 tablets by mouth 2 times daily. 12/02/19 25 Active INSULIN LISPRO, 1 UNIT DIAL, SC 5-15 units 3 times a day before meals; 100 - 149 5 units, 150 - 199 7 units 200 - 249 9 units 250 - 299 11 units 300 - 349 13 units 350 - 399 15 units Active traZODone (Desyrel) 100 MG tabletIndications: Depressive disorder Take 1 tablet (100 mg) by mouth at bedtime. 90 tablet 3 12/12/19 25 Active cholecalciferol (Vitamin D-3) 50 MCG (2000 UT) capsuleIndications :Vitamin D deficiency Take 1 capsule (50 mcg) by mouth Once per day. 90 capsule 3 12/12/19 25 Active empagliflozin (Jardiance) 10 MG Take 1 tablet (10 mg) by mouth Once per day. 30 tablet 11 12/14/19 25 026 Active torsemide (Demadex) 10 MG tablet Take 1 tablet (10 mg) by mouth Once per day. 30 tablet 11 12/14/19 25 026 Active gabapentin (Neurontin) 300 MG capsule Take 1 capsule (300 mg) by mouth at bedtime. 90 capsule 1 12/16/19 25 026 Active acetaminophen (Tylenol Extra Strength) 500 MG tablet Take 1 tablet (500 mg) by mouth every 6 (six) hours if needed for mild pain or fever. 40 tablet 1 01/16/20 25 026 Active sulfamethoxazole-t rimethoprim (Bactrim DS) 800-160 MG tablet Take 1 tablet by mouth 2 times daily for 7 days. 14 tablet 01/16/20 25 025 cephalexin (Keflex) 500 MG capsule Take 1 capsule (500 mg) by mouth 3 times daily for 7 days. 21 capsule 01/16/20 25 025 Active Problems Problem Noted Date Diagnosed Date [...] prior to hospitalization. During the hospitalization and correction stay, it was changed to oxybutynin. - Will resume mirabegron since oxybutynin is anticholinergic and may worsen her cognition. Moderate recurrent major depression (CMS/HCC) Assessment & Plan (08/26/2024 8:45 AM EDT): [...] OP referral and reports was connected with [facility] in the past (about 4 / 5 [...] -2.7-on tx already -vaccines: hepAx2,hepBx3-Immune , Covid 89s5-Lvfwsplw 10/2022, x09o6-t/p 20 x1, tdap 2022 ,s/p zoster vaccinex2 [...] value of -2.7-on tx already -vaccines: hepAx2,hepBx3,covid 10w9-Fvmxrqth today, r92r1-s/p 20 x1, tdap 2012- today booster,s/p zoster [...] associated w vascular etiology and rec for etched circuit processor referral -pt was tx already w keflex 500 BID x 5 days at last apt w no change in rash -advised pt to raise leg -referred to etched circuit processor -pt using fungal cream chronically px by vascular Assessment & Plan (10/25/2022 1:41 PM EDT): Pt w chronic lower left leg pain and erythema -possible vascular in nature ? -I called today her vascular Dr Adame # [phone]-[phone] staff pt was last seen in 04/2022 [...] Dysphagia 03/17/2022 Alcohol use disorder, severe, dependence (CMS/HC C) 03/17/2022 Assessment & Plan (11/22/2022 7:55 PM EDT): [...] some time -pt will check w her guard supervisor if had recently any DEXA scan otherwise will refer at next apt -resume vit D daily and start ca BID -continue alendronate weekly with plan to continue until 01/2024 And will repeat vit D level in 3 to 6 mo Assessment & Plan (10/25/2022 1:11 PM EDT): -DEXA 2018: Osteoporosis based on the lowest T-score value of -2.7 -pt on alendronate weekly and daily Vit D 1999 -will check w her guard supervisor if had recently any DEXA scan otherwise [...] heterogeneous left thyroid nodule. -pt f w guard supervisor-advised pt to continue care w specialist ,pt will discuss tomorrow w specialist if had recently another US or if plan to repeat Assessment & Plan (10/25/2022 1:17 PM EDT): -thyroid US 2019: Small right lobe. Previously identified small right thyroid nodule is not appreciated. Enlarged left lobe. No appreciable change in the solitary, large, heterogeneous left thyroid nodule. -pt f w guard supervisor-advised pt to continue care w specialist ,request [...] on basal insulin? --I called to her guard supervisor-Dr Diamond at # [phone] at previous visit to discuss case. I [...] refused. -pt has f up apt w guard supervisor tomorrow and advised to discuss about basal insulin ? - poultry pathologist 11/2022 mild non proliferative diabetic retinopathy to f in 6 mo -referred to laboratory director today Assessment & Plan (11/22/2022 7:42 PM EDT): Pt w DM2 -insulin dependent w neuropathy Pt is on rapid insulin 220 u in am only and invokana 10/2022 hb1AC is 7.9<---8.9-elevated Gl at 259 .microalb neg , LDL 66 -unsure why pt is not on basal insulin? --I called to her guard supervisor-Dr Diamond at # [phone] at previous visit to discuss case. I [...] refused. -pt has f up apt w guard supervisor tomorrow and advised to discuss about basal insulin ? - poultry pathologist 11/2022 mild non proliferative diabetic retinopathy to f in 6 mo -referred to laboratory director today Assessment & Plan (10/25/2022 1:12 PM EDT): Pt w DM2 -insulin dependent w neuropathy Pt is on rapid insulin 220 u in am only and invokana -today hb1AC is 8.9-elevated CBG at 392--> rechecked was 302 -unsure why pt is not on basal insulin? --I called today her guard supervisor-Dr Diamond at # [phone] to discuss case. I left my cell [...] upcoming meal -will await call from her guard supervisor to discuss plan of care and advised pt to call her specialist at to schedule apt for uncontrolled DM ,likely associated w her ongoing alcohol intake. -also was referred to DM educational by her guard supervisor -referred today to poultry pathologist -will refer to laboratory director at next apt -DM labs Essential hypertension [...] 466, HR 74x' 10/2022 Microalb neg - poultry pathologist 11/2022 Mild non proliferative diabetic retinopathy to [...] 466, HR 74x' 10/2022 Microalb neg - poultry pathologist 11/2022 Mild non proliferative diabetic retinopathy to f up in 6 mo -continue BP meds Assessment & Plan (10/25/2022 5:54 PM EDT): BP is controlled on ARBs -echo 2016 : EF between 55-60 %.Normal -nuclear stress test 2016: without EKG changes meeting criteria for ischemia. -cardiac cath 2016: non obstructive CAD -referred to poultry pathologist -microalb -will check EKG at next apt [...] order new one -referred back to her janitorial assistant to continue care-has apt on 12/2022 [...] to start trelegy -referred back to her janitorial assistant to continue care -request ALFRED -RACQUEL to try to get last pulm visit note Alcoholic cirrhosis (CMS/HCC) 03/25/2015 Assessment & Plan (12/11/2024 6:11 PM [...] diet and exercise,discussed healthy life style -discussed process engineering technician referral --referred already has apt for next month Assessment & Plan (10/25/2022 1:12 PM EDT): Advised pt to improve diet and exercise,discussed healthy life style -discussed process engineering technician referral --referred today Smoker 03/25/2015 Assessment & [...] hypoventilatory changes or air trapping. -requested to ME to obtain last CT chest done per [...] to discuss with her primary care or community education specialist on getting treatment for alcohol dependence. We discussed using insulin pump, as referenced in guard supervisor note but this time patient does not feel that she can manage an insulin pump independently. Reviewed with patient how to treat hypoglycemia, hypoglycemic handout in Indian given to patient Encounters Date Type Department Care Team Description 01/22/2025 Orders Only [facility] [place] [address] Shireen Stout MD Type 2 diabetes mellitus with hyperglycemia, without long-term current use of insulin ([facility]) (Primary Dx) 01/22/2025 Telephone [facility] [address] [place] [phone] Shireen Stout MD Referral 01/15/2025 1:40 PM EDT Office Visit [facility] [place] [address] Neda Rae DO Pain of left great toe (Primary Dx) 01/15/2025 Travel 01/08/[address] [address] Shireen Stout MD 12/30/2024 Telephone [facility] [address] [place] [address] Maricruz Amato [place] 12/18/[address] [address] Kavitha Ortiz, RN NTTS 12/13/2024 Results Follow-Up [address] [address] Lisa Mccurdy MD POCT Hgb A1c, POCT Glucose, Basic Metabolic Panel, Additional followed-up results: 4 12/13/2024 Orders Only [address] [address] Lisa Mccurdy MD Leg swelling (Primary Dx); Shortness of breath; Heart failure with mid-range ejection fraction (HFmEF) ([facility]) 12/11/2024 9:30 AM EDT Office Visit [address] [address] Lisa Mccurdy MD Essential hypertension (Primary Dx); [...] Travel 12/05/2024 1:00 PM EDT Office Visit [facility] [address] [place] [address] Terrence Avila MD Alcohol use disorder, severe, dependence (CMS/HCC) (Primary Dx) 12/05/2024 Travel 12/03/[address] [address] Shireen Stout MD Nurse Triage 11/28/2024 Patient Outreach [address] [address] Shireen Stout MD Transition Of Care (Tcm) (HDF- scheduled (direct)) 11/25/[address] [address] Shireen Stout MD chart prep 11/12/2024 Results Follow-Up [facility] [address] [place] [phone] Shireen Stout MD Us Pelvis complete 11/11/2024 Orders Only [facility] External Provider, [facility] 11/11/2024 Refill [facility] [address] [place], [place] [phone] Lisa Mccurdy MD Mixed hyperlipidemia from Last 3 Months Immunizations Immunization Administration [...] Sign Reading Time Taken Comments Blood Pressure 100/52 01/15/2025 1:32 PM EDT Pulse 81 01/15/2025 1:32 PM EDT Temperature 36.6 C (97.9 F) 01/15/2025 1:32 PM EDT Respiratory Rate 16 01/15/2025 1:32 PM EDT Oxygen Saturation 96% 01/15/2025 1:32 PM EDT Inhaled Oxygen Concentration - - Weight 63 kg (139 lb) 01/15/2025 1:32 PM EDT Height 154.9 cm (5' 1 ) 12/11/2024 9:42 AM EDT Body Mass Index 26.26 12/11/2024 9:42 AM EDT Plan of Treatment Upcoming Encounters Date Type Department Care Team (Late st Contact Info) Description 02/25/2025 11:15 AM EST Office Visit [address] [address] Shireen Stout MD [address] [place] [phone] 03/17/2025 11:00 AM EST Office Visit [facility] [address] [place] [address] Wu Arroyo CNM [address] [place] [phone] Health Maintenance Due Date Last Done Comments [...] 05/11, 05/23/2021, Additional history exists Tobacco Screening 01/15/2026 01/15/2025 Colonoscopy 05/04/2026 05/04/2016 Colorectal Cancer Screening 05/04/2026 [...] PELVIS TRANSVAGINAL Routine 01/23/2025 2:18 PM EDT XR TOES 2+ VIEWS LEFT STAT 01/15/2025 3:59 PM EDT Pain of left great toe NT-PROBNP Routine 12/11/2024 11:04 AM EDT Leg swelling VITAMIN D,25-OH,TOTAL,IA Routine 12/11/2024 11:04 AM EDT Vitamin D deficiency CBC WITH AUTO DIFFERENTIAL Routine 12/11/2024 11:04 AM EDT Alcoholic cirrhosis, unspecified whether ascites present (CMS/HCC) TSH W/REFLEX TO FT4 Routine 12/11/2024 1 1:04 AM EDT Leg swelling BASIC METABOLIC PANEL Routine 12/11/2024 11:04 AM EDT Essential hypertension POCT GLYCATED HEMOGLOBIN, TOTAL Routine 12/11/2024 9:46 AM EDT Diabetes mellitus type 2, insulin dependent (CMS/HCC) POCT GLUCOSE Routine 12/11/2024 9:44 AM EDT Diabetes mellitus type 2, insulin dependent (CMS/HCC) US PELVIS COMPLETE Routine 11/12/2024 9: 45 AM EDT HIGH SENSITIVITY TROPONIN I Routine 11/11/2024 3:41 PM EDT LACTIC ACID Routine 11/11/2024 3:[address] ABDOMEN PELVIS W CONTRAST Routine 11/11/2024 1:21 PM EDT BI MAMMOGRAM SCREENING TOMOSYNTHESIS BILATERAL Routine 06/30/2024 [...] Relevant to Health Maintenance Results * US Pelvis Transvaginal (01/23/2025 2:18 PM EDT) Anatomical Region Laterality Modality Pelvis Ultrasound 01/23/2025 2:18 PM EDT Narrative 01/23/2025 3:12 PM EDT [address] [address] Ultrasound Report Signed Patient: Shireen Tavarez MR#: [id number] 1 : 1960 Acct:[id number] Age/Sex: 64 / F ADM Date: 01/23/25 Loc: HO.US Attending Dr: Melchor Nunn MD Ordering Physician: Melchor Nunn MD Date of Service: 01/23/25 Procedure(s): US pelvic and transvaginal Accession Number(s): [id number] cc: Shireen Stout MD; Melchor Nunn MD [...] 01/23/25 1509 DD/ 1418 TD/TT: 01/23/25 1435 Remote Computer Terminal Operator: Procedure Note Donotuseinterpreter, Image - 01/23/[address] [address] Ultrasound Report Signed Patient: Shireen TavarezMR#: [id number] 1 : 9Acct:[id number] Age/Sex: 64 / FADM Date: 01/23/25 Loc: HO.US Attending Dr: Melchor Nunn MD Ordering Physician: Melchor Nunn MD Date of Service: 01/23/25 Procedure(s): US pelvic and transvaginal Accession Number(s): [id number] cc: Shireen Stout MD; Melchor Nunn MD [...] Kaushik Ramirez MD 01/23/2025 03:09 PM EDT RP Dictated By: Kaushik Ramirez MD Signed By: <Electronically signed by Kaushik aRmirez MD in OV> 01/23/25 1509 DD/ 1418 TD/TT: 01/23/25 1435 Remote Computer Terminal Operator: us [facility] External Provider IMG US PROCEDURES Final Result * XR Toes 2+ Left (01/15/2025 3:59 PM EDT) Anatomical Region Laterality Modality Lower Extremities, Toes Left Radiogra phic Imaging 01/15/2025 3:59 PM EDT Narrative 01/15/2025 4:23 [place] [address] XRay Report Signed Patient: Shireen Tavarez MR#: [id number] 1 : 1960 Acct:[id number] Age/Sex: 64 / F ADM Date: 01/15/25 Loc: HO.HHCX Attending Dr: Neda Rae DO Ordering Physician: Neda Rae DO Date of Service: 01/15/25 Procedure(s): XR toe LT min 2V Accession Number(s): [id number] cc: Neda Rae DO Reason for Exam: L great toe swelling, pain and redness EXAMINATION: XR TOES, LEFT CLINICAL INFORMATION: L great toe swelling, pain and redness COMPARISON: None available. TECHNIQUE: 3 views of the left toes were obtained. FINDINGS: No true lateral was obtained. There are no fractures or dislocations. No joint effusion is identified. No bone, joint or soft tissue abnormality is demonstrated. XR/XR toe LT min 2V IMPRESSION: No acute bony or soft tissue abnormalities. Electronically signed by: Manjeet Cee MD 01/15/2025 04:20 PM EDT RP Dictated By: Manjeet Cee MD Signed By: <Electronically signed by Manjeet Cee MD in OV> 01/15/25 1620 DD/ 155 TD/TT: 01/15/25 1600 Remote Computer Terminal Operator: Procedure Note Donotjeffryinterpreter, Image - 01/15/[address] [address] XRay Report Signed Patient: Hunter Tavarez#: [id number] 1 : 9Acct:[id number] Age/Sex: 64 / FADM Date: 01/15/25 Loc: .HHCX Attending Dr: Neda Rae DO Ordering Physician: Neda Rae DO Date of Service: 01/15/25 Procedure(s): XR toe LT min 2V Accession Number(s): [id number] cc: Neda Rae DO Reason for Exam: L great toe swelling, pain and redness EXAMINATION: XR TOES, LEFT CLINICAL INFORMATION: L great toe swelling, pain and redness COMPARISON: None available. TECHNIQUE: 3 views of the left toes were obtained. FINDINGS: No true lateral was obtained. There are no fractures or dislocations. No joint effusion is identified. No bone, joint or soft tissue abnormality is demonstrated. XR/XR toe LT min 2V IMPRESSION: No acute bony or soft tissue abnormalities. Electronically signed by: Manjeet Cee MD 01/15/2025 04:20 PM EDT RP Dictated By: Manjeet Cee MD Signed By: <Electronically signed by Manjeet Cee MD in OV> 01/15/25 1620 DD/ 155 TD/TT: 01/15/25 1600 Remote Computer Terminal Operator: Neda Rae DO IMG XR PROCEDURES Final Resu lt * Vitamin D, 25-Hydroxy, Total, Immunoassay (12/11/2024 11:04 AM EDT) Vitamin D 25-OH Total 36.6 >30 ng/mL [facility] Comment: Health Based Reference Values*< 20 ng/mL Kpnlekqxu54-63 ng/mL Insufficient> 30 ng/mL Sufficient*Acosta BERMUDEZ. N [...] ORDERABLES Final Resul t Performing Organization Address City/[facility]/ZIP Co de Phone Number [facility] [address] [place] [phone] * TSH with Reflex to Free T4 (12/11/2024 11:04 AM EDT) TSH reflex Free T4 0.39 0.32 - 4.0 uIU/mL [facility] Blood 12/11/2024 11:0 4 AM EDT 12/11/2024 1:28 PM EDT us Lisa Mccurdy MD LAB BLOOD ORDERABLES Final Resul t [facility] [address] [place] [phone] * (ABNORMAL) NT-proBNP (12/11/2024 11:04 AM EDT) Pathologist [facility] [place] NT-proBNP 517(A) <125 pg/mL [facility] Comment:THIS TEST WAS PERFOR MED AT:[facility] [place] [phone] AGUIRRE MD Venous blood specimen / Unknown 12/11/2024 11:04 AM EDT 12/11/2024 1:16 PM EDT us Lisa Mccurdy MD LAB BLOOD ORDERABLES Final Resul t [facility] [address] [place] [phone] * (ABNORMAL) CBC auto differential (12/11/2024 11:04 AM EDT) Pathologist [facility] [place] White Blood Count 5.6 4.8 - 10.8 X10*3/uL [facility] Red Blood Count 3.38(L) 4.20 - 5.50 X10*6/uL [facility] Hemoglobin 10.4(L) 12.0 - 16.0 g/dl [facility] Hematocrit 32.1(L) 37.0 - 47.0 % [facility] Mean Corpuscular Volume 95.0 80.0 - 98.0 fL [facility] Mean Corpuscular Hemoglobin 30.8 27.0 - 33.0 pg [facility] Mean Corpuscular HGB Conc 32.4 31.0 - 35.0 g/dl [facility] Red Cell Distribution Width 15.6 11.0 - 16.0 % [facility] Platelet Count 199 160 - 400 X10*3/uL [facility] Mean Platelet Volume 10.1 9.4 - 12.3 fL [facility] Neutrophils Percent Auto 65.0 45 - 73 % [facility] Imm Gran Pct Auto 0.5(H) 0.0 - 0.4 % [facility] Lymphocytes Percent Auto 25.4 20 - 40 % [facility] Monocytes Percent Auto 6.6 2 - 11 % [facility] Eosinophils Percent Auto 2.0 0 - 4 % [facility] Basophils Percent Auto 0.5 0 - 2 % [facility] NRBC Pct Auto 0.0 0.0 - 0.2 /100WBC [facility] Neutrophils Absolute Auto 3.6 2.0 - 8.3 x10*3/uL [facility] Imm Gran Abs Auto 0.03 0.00 - 0.03 X10*3/uL [facility] Lymphocytes Absolute Auto 1.4 1.2 - 4.9 X10*3/uL [facility] Monocytes Absolute Auto 0.4 0.1 - 1.2 X10*3/uL [facility] Eosinophils Absolute Auto 0.1 0.0 - 0.4 X10*3/uL [facility] Basophils Absolute Auto 0.0 0.0 - 0.2 X10*3/uL [facility] NRBC Abs Auto 0.000 0.0 - 0.012 X10*3/uL [facility] Blood Venous blood specimen / Unknown 12/11/2024 11:04 AM EDT 12/11/2024 1:28 PM EDT us Lisa Mccurdy MD LAB BLOOD ORDERABLES Final Resul t [facility] [address] [place], [place] [phone] * (ABNORMAL) Basic Metabolic Panel (12/11/2024 11:04 AM EDT) Sodium 144 135 - 145 mmol/L [facility] Potassium 3.6 3.3 - 5.1 mmol/L [facility] Chloride 106 96 - 108 mmol/L [facility] Carbon Dioxide 31(H) 22 - 29 mmol/L [facility] Anion Gap 11(L) 12 - 20 [facility] Urea Nitrogen (BUN) 5(L) 9 - 16 mg/dL [facility] Creatinine, Serum 0.56 0.5 - 1.4 mg/dL [facility] Estimated Glomerular Filt Rate >60 [facility] Comment:Chronic Kidney Disea se: Estimated GFR < 60 mL/min/1.39b1Qsflxn Kidney Disease: Estimated GFR < 15 mL/min/1.73m2 Glucose 182(H) 60 - 115 mg/dL [facility] Calcium 9.2 8.4 - 10.2 mg/dL [facility] Blood Venous blood specimen / Unknown 12/11/2024 11:04 AM EDT 12/11/2024 1:28 PM EDT Lisa Mccurdy MD LAB BLOOD ORDERABLES Final Resul t [facility] LAB[facility] [address] [place] [phone] * POCT Hgb A1c (12/11/2024 9:46 [...] Media Lot # [id number] Lot# Expiration Date ,726 Blood Capillary blood specimen / Unknown 12/11/2024 9:44 AM EDT Lisa Mccurdy MD POINT OF CARE TEST ENTER/EDIT OR DERABLES Final Result * Us Pelvis complete (11/12/2024 9:45 AM EDT) Anatomical Region Laterality Modality Pelvis Ultrasound 11/12/2024 9:45 AM EDT Narrative 11/12/2024 10:38 AM EDT [address] [address] Ultrasound Report Signed Patient: Shireen Tavarez MR#: [id number] 1 : 1960 Acct:[id number] Age/Sex: 63 / F ADM Date: 11/11/24 Loc: [place] [address]: Dylan Adams MD Ordering Physician: Gerri Walls MD Date of Service: 11/12/24 Procedure(s): US pelvic complete Accession Number(s): [id number] cc: Gerri Walls MD; Shireen Stout MD [...] limited by lack of an endovaginal scan. BANBURY MILL OPERATOR consultation is recommended. Electronically signed by: Kaushik Ramirez MD 11/12/2024 10:35 AM EDT Dictated By: Kaushik Ramirez MD Signed By: <Electronically signed by Kaushik Ramirez MD in OV> 11/12/24 1035 DD/ TD/TT: 11/12/24 0948 Remote Computer Terminal Operator: Procedure Note Donotuseinterpreter, Image - 11/12/[address] [address] Ultrasound Report Signed Patient: Hunter Tavarez#: [id number] 1 : 9Acct:[id number] Age/Sex: 63 / FADM Date: 11/11/24 Loc: [facility]- Attending Dr: Dylan Adams MD Ordering Physician: Gerri Walls MD Date of Service: 11/12/24 Procedure(s): US pelvic complete Accession Number(s): [id number] cc: Gerri Walls MD; Shireen Stout MD [...] limited by lack of an endovaginal scan. BANBURY MILL OPERATOR consultation is recommended. Electronically signed by: Kaushik Ramirez MD 11/12/2024 10:35 AM EDT Dictated By: Kaushik Ramirez MD Signed By: <Electronically signed by Kaushik Ramirez MD in OV> 11/12/24 1035 DD/ 0945 TD/TT: 11/12/24 0948 Remote Computer Terminal Operator: [facility] External Provider IMG US PROCEDURES Final Result * (ABNORMAL) High Sensitivity Troponin I (11/11/2024 3:41 PM EDT) TROPONIN I HIGH SENSITIVITY 52.5(HH) <3.5 - 17.0 ng/L [facility] Comment:Critical value for t est(s): TROPONIN Results called to keylamaame back by: FANY Person calling:[id number] Date: 11/11/24Time:1612[employer] high sensitivity Troponin-I results should beused in conjunction with other diagnostic information suchas ECG, clinical observations and information, and patientsymptoms to aid in the diagnosis of [place]. 11/11/2024 3:41 PM EDT 11/11/2024 3:49 PM EDT Generic External Data Provider LAB BLOOD ORDERAB LES Final Result Performing Organization Address City/[facility]/ZIP Co de Phone Number [facility] [address] [place] [phone] * Lactic Acid (11/11/2024 3:41 PM EDT) Lactic Acid 1.6 0.5 - 2.0 mmol/L [facility] 11/11/2024 3:41 PM EDT 11/11/2024 3:49 PM EDT Generic External Data Provider LAB BLOOD ORDERAB LES Final Result Performing Organization Address City/[facility]/ZIP Co de Phone Number [facility] [address] [place] [phone] * CT Abdomen Pelvis w/ Contrast (11/11/2024 1:21 PM EDT) Anatomical Region Laterality Modality Body, Pelvis, Abdomen Computed T omography 11/11/2024 1:21 PM EDT Narrative 11/11/2024 2:59 PM EDT [address] [address] [address] Scan Report Signed Patient: Shireen Tavarez MR#: [id number] 1 : 1960 Acct:[id number] Age/Sex: 63 / F ADM Date: 11/11/24 Loc: HO.ED Attending Dr: Ordering Physician: Libertad Elena Date of Service: 11/11/24 Procedure(s): CT abdomen pelvis w IV con Accession Number(s): [id number] cc: Shireen Stout MD; Libertad Elena Report Number: [id number]: Total DLP = 448.00 mGy-cm EXAMINATION: CT [...] 11/11/24 1457 DD/ 1321 TD/TT: 11/11/24 1445 Remote Computer Terminal Operator: Procedure Note Donotuseinterpreter, Image - 11/11/[address] [place] [address] [address] Scan Report Signed Patient: Shireen Tavarez#: [id number] 1 : 1960cct:[id number] Age/Sex: 63 / FADM Date: 11/11/24 Loc: HO.ED Attending Dr: Ordering Physician: Libertad Elena Date of Service: 11/11/24 Procedure(s): CT abdomen pelvis w IV con Accession Number(s): [id number] cc: Shireen Stout MD; Libertad Elena Report Number: [id number]: Total DLP = 448.00 mGy-cm EXAMINATION: CT [...] 11/11/24 1457 DD/ 1321 TD/TT: 11/11/24 1445 Remote Computer Terminal Operator: [facility] External Provider IMG CT PROCEDURES Edited Result - Final * BI Mammogram Screening Tomosynthesis Bilateral (06/30/2024 10:15 AM EDT) Anatomical Region Laterality Modality Breast Bilateral Mammography 06/30/2024 10:1 5 AM EDT Narrative 07/06/2024 8:14 PM EDT [address] [place] [address] Mammography Report Signed Patient: Shireen Tavarez MR#: [id number] 1 : 1960 Acct:[id number] Age/Sex: 63 / F ADM Date: 06/30/24 Loc: HO.MAMMO Attending Dr: Shireen Krishnan MD Ordering Physician: Shireen Stout MD Re sults: 2Benign Findings Date of Service: 06/30/24 Follow Up: 1 Year From Orig inal Mammogram Procedure(s): MM tomosynthesis screening BI Accession Number(s): [id number] cc: Shireen Stout MD EXAMINATION: MM SCREENING [...] OV> 07/06/242010 DD/ 1015 TD/TT: 06/30/24 1029 Remote Computer Terminal Operator: Procedure Note Donotuseinterpreter, Image - [facility]/06/[facility] [address] [place] [address] Mammography Report Signed Patient: Shireen TavarezMR#: [id number] 1 : 9Acct:[id number] Age/Sex: 63 / FADM Date: 06/30/24 Loc: HO.MAMMO Attending Dr: Shireen Krishnan MD Ordering Physician: Shireen Stout sults: 2Benign Findings Date of Service: 06/30/24Follow Up: 1 Year From Orig inal Mammogram Procedure(s): MM tomosynthesis screening BI Accession Number(s): [id number] cc: Shireen Stout MD EXAMINATION: MM SCREENING [...] OV> 07/06/242010 DD/ 1015 TD/TT: 06/30/24 1029 Remote Computer Terminal Operator: us Shireen Krishnan MD IMG BI PROCEDURES Edited Result - Final * Hepatitis C Antibody with Reflex to HCV, RNA, Quantitative, Real-Time PCR (02/28/2024 11:10 AM EST) Hepatitis C Antibody Nonreactive Nonreactive [facility] Comment:Antibodies to HCV no t detected; does not exclude early acuteHCV infection. Blood Venous blood specimen / Unknown 02/28/2024 11:10 AM EST 02/28/2024 11:10 AM EST us Shireen Krishnan MD LAB BLOOD ORDERAB LES Final Result [facility] [address] [place] [phone] * Lipid Panel, Standard (02/28/2024 11:10 AM EST) Triglycerides 132 <150 mg/dL [facility] Comment:Desirable Triglyceri de: less than 150 mg/dLBorderline High Triglyceride 150-199 mg/dLHigh Triglyceride: 200-499 mg/dLVery High Triglyceride: greater than or equal to 5OO mg/dL Cholesterol 128 <200 mg/dL [facility] Comment:Desirable Cholestero l: less than 200 mg/dLBorderline High Cholesterol: 200-239 mg/dLHigh Cholesterol: greater than 239 mg/dL LDL Cholesterol Calculated 56 <100 mg/dL [facility] Comment:Desirable LDL: less than 100 mg/dLNear Optimal/Above Optimal LDL: 110- 129 mg/dLBorderline High LDL: 130-159 mg/dLHigh LDL: 160-189 mg/dLVery High LDL: greater than or equal to 190 mg/dL HDL Cholesterol 46 >40 mg/dL [facility] Comment:Desirable HDL: great er than 40 mg/dL Note: This HDL assay may give artificially low results in patients with liver disease. Blood Venous blood specimen / Unknown 02/28/2024 11:10 AM EST 02/28/2024 11:10 AM EST us Shireen Krishnan MD LAB BLOOD ORDERAB LES Final Result Performing Organization Address City/[facility]/ZIP Co de Phone Number [facility] [address] [place] [phone] * Albumin, Random Urine W/Creatinine (02/28/2024 11:05 AM EST) Creatinine, Urine 80.33 mg/dL [facility] Microalbumin Urine <5.0 mg/L [facility] Microalbum Creatinine Ratio Ur TNP <30 ug/mg cr [facility] Comment:Unable to calculate albumin/creatinine ratio due to lowmicroalbumin or creatinine result. Urine (Urine, Random) 02/28/2024 11:05 AM EST 02/28/2024 12:03 PM EST us Shireen Krishnan MD LAB URINE ORDERAB LES Final Result Performing Organization Address City/[facility]/ZIP Co de Phone Number [facility] [address] [place] [phone] * HPV mRNA E6/E7 w/Reflex to HPV Genotypes 16, 18/45 (02/19/2023 10:03 AM EST) HPV nRNA E6/E7 Not Detected Not Detected [facility] Comment:Methodology: Transcr iption-Mediated AmplificationThis assay detects E6/E7 viral messenger RNA (mRNA) from 14high-risk HPV types (16,18,31,33,35,39,45,51,52,56,58,59,66,68).Cervical sources are required for HPV testing.If a vaginal source from a patient who has had atotal hysterectomy with removal of cervix wassubmitted, please contact the testing laboratoryfor alternative testing options.For additional information, please refer [email or web address].[employer]/faq/YIK013y5(This link if provided for information/educational purposes only.)THIS TEST WAS PERFORMED AT:[facility] [place] [phone] AGUIRRE MD HPV mRNA E6/E7 TNP [facility] HPV 16 RNA [facility] HPV 18/45 RNA [facility] 02/19/2023 10:0 3 AM EST 02/20/2023 11:30 AM EST Wu Arroyo CNM LAB CYTOLOGY ORDERABLES F inal Result [facility] [address] [place] [phone] * Pap Smear (02/19/2023 10:03 AM EST) 02/19/2023 10:0 3 AM EST 02/20/2023 11:30 AM EST Narrative [facility] - 03/09/2023 12:47 PM EST ----- ------- Name: Shireen Tavarez Age/Sex: 62/F : 1960 Unit#: [id number] Attend Dr: WU ARROYO CNM Re02/19/23 Status: DEP [facility]F [facility] Disch: ----- ------- SPEC : [id number] RECD: 02/20/23 STATUS: LUCIA CALVERT NUM: [id number] NATALIE: 02/19/23-[address]: WU ARROYO [facility] ENTERED: 02/20/23 SP TYPE: Pap Smr OT DR: ORDERED: Pap Smear Interpretation Satisfactory for evaluation. Negative for intraepithelial lesion or malignancy. HPV mRNA E6/E7: NOT DETECTED This assay detects E6/E7 viral messenger RNA (mRNA) from 14 high-risk HPV types (16, 18, 31, 33, 35, 39, 45, 51, 52, 56, 58, 59, 66, 68) HPV testing performed by [facility], [place], [place]. See reference laboratory portion of the EMR for entire report. Clinical Information LMP: Postmenopausal Previous PAP test: 2017, ASCUS HPV neg Material Received ThinPrep-Cervical ----- ------- Signed (signature on file) JEANA [place] ([facility]) 03/09/23 1247 ----- ------- END OF REPORT Wu Arroyo CNM LAB CYTOLOGY ORDERABLES F inal Result [facility] [address] [place] [phone] * Colonoscopy (05/04/2016) Colonoscopy performed Historical Provider HEALTH MAINTENANCE Final Result from Last 3 Months or Most Recently Relevant to Health Maintenance Insurance [facility] (O D-SNP) YANCI ZAPATA [phone] [place] [address] Care Teams Control Room Helper Relationship Specialty Start Date End Date Shireen Stout MD [address] [place] [phone] PCP - General Internal Medicine 09/08/22
--- OUTSIDE RECORDS SUMMARY | 2025-01-23 15:44 | XMS_ITS | Encounter Summary ---
Author Organization [employer] Address [address] [facility] 7t [place] [address] Care Team Providers Care Horse Trainer Name Role Phone Shireen Stout MD Primary Care Pro vider Reason for Visit * Reason Comments Med Refill Encounter Details Date Type Department Care Team (Late st Contact Info) Description 10/17/2023 Refill [facility] [address] [place], [place] [phone] Bruna Yusuf FNP [address] [place] [address] Social History Tobacco Use Types Packs/Day Years [...] Description 02/25/2025 11:15 AM EST Office Visit [facility] MEDICINE [address] [place] [phone] Shireen Stout MD [address] [place] [phone] 03/17/2025 11:00 AM EST Office Visit [address] [address] Rhoda Melvin CNM [address] [place] [phone] documented as of this encounter Visit Diagnoses Not on filedocumented in this encounter Additional Health Concerns Assessment Noted Time PHQ-9 Depression Total Score: 5 12/16/19 23 2:02 PM EDT documented as of this encounter Care Teams Horse Trainer Relationship Specialty Start Date End Date Shireen Stout MD [address] [place] [phone] PCP - General Internal Medicine 09/08/22 [employer] [facility] 09/22/24 12/28/24 documented as of this encounter
--- OUTSIDE RECORDS SUMMARY | 2025-01-23 15:44 | XMS_ITS | Encounter Summary ---
Author Organization [employer] Address [address] [place] [address] 7t [place] [address] Care Team Providers Care Employee Relations Specialist Name Role Phone Tonja Guzmán PRICING INTERN Primary Care Provider Shireen Acuña MD Primary Care Pro vider Encounter Details Date Type Department Care Team (Late st Contact Info) Description 06/27/[address] [phone] Provider, MD Ja Social History Tobacco Use [...] Description 02/25/2025 11:15 AM EST Office Visit [address] [phone] Shireen Stout MD [address] [place] [address] [phone] 03/17/2025 11:00 AM EST Office Visit [facility] MEDICINE [address] [place] [address] [phone] Rhoda Melvin CNM [address] [place] [address] [phone] documented as of this encounter Procedures Procedure Name Priority Date/Time Associated Diagnosis Comments HEMOGLOBIN A1C (EXTERNAL RESULTS ONLY) Routine 04/20/2022 3:08 PM EST documented in this encounter Results * (ABNORMAL) Hemoglobin A1c (04/20/2022 3:08 PM EST) Hemoglobin A1C 8.9(A) 4.0 - 6.0 % Comment:[facility] Endocrinology & Diabetes [place] 04/20/2022 3:08 PM EST Narrative Eliza Salgado - 04/20/2022 3:08 PM EST A1c performed at [facility] Endocrinology Diabetes [place] us Historical Provider POINT OF CARE TEST ENTER/ EDIT ORDERABLES Final Result documented in this encounter Visit Diagnoses Not on filedocumented in this encounter Care Teams Employee Relations Specialist Relationship Specialty Start Date End Date Tonja Guzmán FNP PCP - General Family Medicine 12/04/21 09/07/22 Shireen Stout MD [address] [place] [place] [phone] PCP - General Internal Medicine 09/08/22 [employer] [facility] 09/22/24 12/28/24 documented as of this encounter
--- OUTSIDE RECORDS SUMMARY | 2025-01-23 15:44 | XMS_ITS | Clinical Summary ---
Author Organization [address] [facility] Address [address] [place] [phone] Phone Care Team Providers Care Hatch Tender Name Role Phone Pranav Stout MD Primary Care Pro vider Allergies Active Allergy Reactions Criticality Noted Date Comments Jimmy Inhibitors 11/02/2023 Apple 11/02/2023 Romero 11/02/2023 Schoolcraft (Prunus Persica) 11/02/2023 Peanut 11/02/2023 Medications albuterol [...] skin. 770 g 5 06/19/19 26 Active Immunizations Immunization Administration Dates Next Due COVID-19 (Moderna/Spikevax) 10yo [...] 09/18/2024 9:08 AM EDT Plan of Treatment Health Maintenance Due Date Last Done Comments Breast Cancer Screening 1960 Colorectal Cancer Screening: Colonoscopy 1960 Diabetes: Annual GFR (Glomerular Filtration Rate) 1960 Diabetes: Annual Foot Exam 1968 Diabetes: Annual Retina Eye Exam 1968 Osteoporosis Screening (Bone Density Screening) 11/02/2023 Social [...] complete this topic Insurance MEDICAID - [place] [employer] MEDICAID Care Teams Hatch Tender Relationship Specialty Start Date End Date Pranav Stout MD [address] [facility] 9 [place] [phone] PCP - General 08/16/23
--- OUTSIDE RECORDS SUMMARY | 2025-01-23 15:44 | XMS_ITS | Encounter Summary ---
Author Organization [employer] Address [address] [facility] 7t [place] [address] Care Team Providers Care Material Preparation Worker Name Role Phone Shireen Stout MD Primary Care Pro vider Reason for Visit * Reason Onset Date Comments Nurse Triage 12/03/2024 Encounter Details Date Type Department Care Team ([facility] st Contact Info) Description 12/03/2024 Telephone [facility] [address] [place] [address] Shireen Stout MD [address] [place] [address] Nurse Triage Social History Tobacco Use Types [...] have a UTI. Call to Pt with [facility] per diem interpreter [place] [id number]. Pt is speaking for Pt who is [...] 7pm to come in the morning instead. Design Printer Balloon did indicate that on INstead Pt request. [...] The caller accepted this outcome. Pt is pitcairn islander soeaking Visiting nurse speaks finnish documented in this encounter Plan of Treatment Upcoming Encounters Date Type Department Care Team (Late st Contact Info) Description 02/25/2025 11:15 AM EST Office Visit [facility] MEDICINE [address] [place] [phone] Shireen Stout MD [address] [place] [phone] 03/17/2025 11:00 AM EST Office Visit [facility] [address] [place] [phone] Rhoda Melvin CNM [address] [place] [address] documented as of this encounter Visit Diagnoses Not on filedocumented in this encounter Additional Health Concerns Assessment Noted Time PHQ-9 Depression Total Score: 11 025 9:44 AM EDT documented as of this encounter Care Teams Material Preparation Worker Relationship Specialty Start Date End Date Shireen Stout MD [address] [place] [phone] PCP - General Internal Medicine 09/08/22 [employer] [facility] 09/22/24 12/28/24 documented as of this encounter
--- OUTSIDE RECORDS SUMMARY | 2025-01-23 15:44 | XMS_ITS | Encounter Summary ---
Author Organization [employer] Address [address] [facility] 7t [place] [address] Care Team Providers Care Development Assistant Name Role Phone Shireen Stout MD Primary Care Pro vider Reason for Visit * Reason Comments Med Refill Encounter Details Date Type Department Care Team ([facility] st Contact Info) Description 04/05/2023 Refill [facility] MEDICINE [address] [place], [place] [phone] Enedelia Coley MD [address] [place], [place] [phone] Social History Tobacco Use Types Packs/Day Years [...] Description 02/25/2025 11:15 AM EST Office Visit [facility] MEDICINE [address] [place] [phone] Shireen Stout MD [address] [place] [address] 03/17/2025 11:00 AM EST Office Visit [facility] MEDICINE [address] [place] [phone] Rhoda Melvin CNM [address] [place] [phone] documented as of this encounter Visit Diagnoses Not on filedocumented in this encounter Additional Health Concerns Assessment Noted Time PHQ-9 Depression Total Score: 5 12/16/19 23 2:02 PM EDT documented as of this encounter Care Teams Development Assistant Relationship Specialty Start Date End Date Shireen Stout MD [address] [place] [phone] PCP - General Internal Medicine 09/08/22 [employer] [facility] 09/22/24 12/28/24 documented as of this encounter
== END 2025-01-23 13:10 | disposition home or self-care (01) ==
LOC: HO.US 13:09
PROVIDERS: PCP Student in an Organized Health Care Education/Training Program; Visit Provider Obstetrics & Gynecology
DX: N94.89 Other specified conditions associated with female genital organs and menstrual cycle (principal)
CPT/HCPCS: 76830; 76856

== ENCOUNTER → 2025-01-23 13:11 | Outpatient (BNV) | payer OTHER, SELFPAY | PROVIDERS: PCP Student in an Organized Health Care Education/Training Program; Visit Provider Radiology Diagnostic Radiology | DX: D25.1 Intramural leiomyoma of uterus (principal) | CPT/HCPCS: 76830; 76856 ==

== ENCOUNTER 2025-01-28 09:28 | Outpatient (REF) | payer OTHER, SELFPAY ==
--- NOTE | ~2025-01-28 | CT_ITS ---
CLINICAL HISTORY: Z87.891 - Personal history of nicotine dependence CT lung cancer screening (LDCT) Comparison: CT/DE/SR - CT LUNG SCREENING - 01/14/24 09:50 EDT Technique: Axial CT images of the chest using low-dose technique. Referring provider counseled the patient on shared decision-making for LDCT screening. Additional counseling was provided on smoking cessation. Effective radiation dose total: DLP 23.5 mGycm, CTDIvol 0.9 mGy. Findings: No new nodules are noted. There are moderate coronary artery calcifications. There is probable hepatosplenomegaly. Previously described nodules are unchanged. IMPRESSION: LungRADS 2 - Benign Appearance: Continue annual screening with low dose Chest CT in 12 months. ##L2# This document has been electronically signed by: Javed Alba MD on 01/29/2025 13:10:49
--- OUTSIDE RECORDS SUMMARY | 2025-01-28 10:48 | XMS_ITS | Encounter Summary ---
Author Organization [employer] Address [address] [facility] 7t [place] [address] Care Team Providers Care Airport Tower Controller Name Role Phone Shireen Stout MD Primary Care Pro vider Reason for Visit * Reason Comments Med Refill Encounter Details Date Type Department Care Team (Late st Contact Info) Description 01/16/2023 Refill [facility] MEDICINE [address] [place] [address] Tonja Gumzán FNP Social History Tobacco Use Types Packs/Day [...] Description 02/25/2025 11:15 AM EST Office Visit [facility] MEDICINE [address] [place] [phone] Shireen Stout MD [address] [place] [phone] 03/17/2025 11:00 AM EST Office Visit [address] [address] Rhoda Melvin CNM [address] [place] [phone] documented as of this encounter Visit Diagnoses Not on filedocumented in this encounter Additional Health Concerns Assessment Noted Time PHQ-9 Depression Total Score: 5 12/16/19 23 2:02 PM EDT documented as of this encounter Care Teams Airport Tower Controller Relationship Specialty Start Date End Date Shireen Stout MD [address] [place] [address] [phone] PCP - General Internal Medicine 09/08/22 [facility] 09/22/24 12/28/24 documented as of this encounter
--- OUTSIDE RECORDS SUMMARY | 2025-01-28 10:48 | XMS_ITS | Encounter Summary ---
Author Organization [employer] Address [address] [place] [address] 7t [place] [address] Care Team Providers Care Welt Pocket Machine Operator Name Role Phone Shireen Stout MD Primary Care Pro vider Reason for Visit * Reason Comments Med Refill Encounter Details Date Type Department Care Team (Late st Contact Info) Description 01/10/2023 Refill [facility] MEDICINE [address] [place], [place] [phone] Tonja Guzmán, DIMAS Pulmonary emphysema, unspecified emphysema [...] Description 02/25/2025 11:15 AM EST Office Visit [facility] MEDICINE [address] [place] [address] Shireen Stout MD [address] [place] [address] 03/17/2025 11:00 AM EST Office Visit [facility] MEDICINE [address] [place] [phone] Rhoda Melvin CNM [address] [place] [address] documented as of this encounter Visit Diagnoses Diagnosis Pulmonary emphysema, unspecified emphysema type documented in this encounter Additional Health Concerns Assessment Noted Time PHQ-9 Depression Total Score: 5 12/16/19 23 2:02 PM EDT documented as of this encounter Care Teams Welt Pocket Machine Operator Relationship Specialty Start Date End Date Shireen Stout MD [address] [place] [phone] PCP - General Internal Medicine 09/08/22 [employer] [facility] 09/22/24 12/28/24 documented as of this encounter
--- OUTSIDE RECORDS SUMMARY | 2025-01-28 10:48 | XMS_ITS | Encounter Summary ---
Author Organization [employer] Address 75 [facility] 7t [place] [address] Care Team Providers Care Supervisor Fabrication Name Role Phone Shireen Stout MD Primary Care Pro vider Reason for Visit * Reason Comments Med Refill Encounter Details Date Type Department Care Team (Late st Contact Info) Description 08/04/2024 Refill [facility] MEDICINE 230 [place], [place] [phone] Shireen Stout MD [address] [place], [place] [phone] Social History Tobacco Use Types Packs/Day Years [...] the past 12 months, has t he [employer] gas, oil or water company threatened to [...] Description 02/25/2025 11:15 AM EST Office Visit [facility] MED[facility]INE [address] [place] [address] Shireen Stout MD [address] [place] [address] 03/17/2025 11:00 AM EST Office Visit [facility] MED[facility]INE [address] [place] [address] Rhoda Melvin CNM [address] [place] [address] documented as of this encounter Visit Diagnoses Not on filedocumented in this encounter Additional Health Concerns Assessment Noted Time PHQ-9 Depression Total Score: 3 03/05/20 24 9:07 AM EST documented as of this encounter Care Teams Supervisor Fabrication Relationship Specialty Start Date End Date Shireen Stout MD [address] [place] [address] PCP - General Internal Medicine 09/08/22 [facility] 09/22/24 12/28/24 documented as of this encounter
--- OUTSIDE RECORDS SUMMARY | 2025-01-28 10:48 | XMS_ITS | Encounter Summary ---
Author Organization [employer] Address 75 [facility] 7t [place] [address] Care Team Providers Care Peoplesoft Administrator Name Role Phone Shireen Stout MD Primary Care Pro vider Reason for Visit * Reason Comments Med Refill Encounter Details Date Type Department Care Team (Late st Contact Info) Description 01/16/2023 Refill [facility] CHC MED & PEDS [address] [place], [place] [phone] Shireen Stout MD 230 [place] [address] Social History Tobacco Use Types Packs/Day Years [...] Description 02/25/2025 11:15 AM EST Office Visit [facility] MEDICINE [address] [place] [address] Shireen Stout MD [address] [place] [address] 03/17/2025 11:00 AM EST Office Visit [address] [address] Rhoda Melvin CNM [address] [place] [address] documented as of this encounter Visit Diagnoses Not on filedocumented in this encounter Additional Health Concerns Assessment Noted Time PHQ-9 Depression Total Score: 5 12/16/19 23 2:02 PM EDT documented as of this encounter Care Teams Peoplesoft Administrator Relationship Specialty Start Date End Date Shireen Stout MD [address] [place] [address] PCP - General Internal Medicine 09/08/22 [facility] 09/22/24 12/28/24 documented as of this encounter
--- OUTSIDE RECORDS SUMMARY | 2025-01-28 10:48 | XMS_ITS | Encounter Summary ---
Author Organization [employer] Address 75 [facility] 7t [place] [address] Care Team Providers Care Budget Clerk Name Role Phone Shireen Stout MD Primary Care Pro vider Reason for Visit * Reason Onset Date Comments Referral 01/22/2025 Encounter Details Date Type Department Care Team ([facility] st Contact Info) Description 01/22/2025 Telephone [facility] MEDICINE 230 [place] [address] Shireen Stout MD [address] [place] [address] Referral Social History Tobacco Use Types Packs/Day [...] Tc from [facility] requesting a referral for brass wind instruments tube bender Contact Noelle at [phone] documented in this encounter Plan of Treatment Upcoming Encounters Date Type Department Care Team (Late st Contact Info) Description 02/25/2025 11:15 AM EST Office Visit [facility] MEDICINE [address] [place] [address] Shireen Stout MD [address] [place] [address] 03/17/2025 11:00 AM EST Office Visit [facility] MEDICINE [address] [place] [address] Rhoda Melvin CNM [address] [place] [address] documented as of this encounter Visit Diagnoses Not on filedocumented in this encounter Additional Health Concerns Assessment Noted Time PHQ-9 Depression Total Score: 11 025 9:44 AM EDT documented as of this encounter Care Teams Budget Clerk Relationship Specialty Start Date End Date Shireen Stout MD [address] [place] [address] PCP - General Internal Medicine 09/08/22 documented as of this encounter
--- OUTSIDE RECORDS SUMMARY | 2025-01-28 10:48 | XMS_ITS | Encounter Summary ---
Author Organization [employer] Address 75 [facility] 7t [place] [address] Care Team Providers Care Medical Photographer Name Role Phone Shireen Stout MD Primary Care Pro vider Reason for Visit * Reason Comments Med Refill Encounter Details Date Type Department Care Team (Late st Contact Info) Description 01/16/2023 Refill [facility] CHC MED & PEDS 505 [place], [place] [phone] Shireen Stout MD 230 [place] [address] Social History Tobacco Use Types Packs/Day Years [...] Description 02/25/2025 11:15 AM EST Office Visit [facility] MEDICINE [address] [place] [address] Shireen Stout MD [address] [place] [address] 03/17/2025 11:00 AM EST Office Visit [address] [address] Rhoda Melvin CNM [address] [place] [address] documented as of this encounter Visit Diagnoses Not on filedocumented in this encounter Additional Health Concerns Assessment Noted Time PHQ-9 Depression Total Score: 5 12/16/19 23 2:02 PM EDT documented as of this encounter Care Teams Medical Photographer Relationship Specialty Start Date End Date Shireen Stout MD [address] [place] [address] PCP - General Internal Medicine 09/08/22 [facility] 09/22/24 12/28/24 documented as of this encounter
--- OUTSIDE RECORDS SUMMARY | 2025-01-28 10:48 | XMS_ITS | Encounter Summary ---
Author Organization [employer] Address 75 [facility] 7t [place] [address] Care Team Providers Care Straw Hat Presser Name Role Phone Shireen Stout MD Primary Care Pro vider Encounter Details Date Type Department Care Team ([facility] st Contact Info) Description 01/08/2025 Telephone [facility] MEDICINE 230 [place], [place] [phone] Shireen Stout MD 230 [place], [place] [phone] Social History Tobacco Use Types Packs/Day Years [...] - 01/08/2025 4:37 PM EDT Tc from [place] with [facility] requesting status on face to face documents. documented in this encounter Plan of Treatment Upcoming Encounters Date Type Department Care Team (Late st Contact Info) Description 02/25/2025 11:15 AM EST Office Visit [facility] MEDICINE [address] [place] [address] Shireen Stout MD [address] [place] [address] 03/17/2025 11:00 AM EST Office Visit [facility] MEDICINE [address] [place] [address] Rhoda Melvin CNM [address] [place] [address] documented as of this encounter Visit Diagnoses Not on filedocumented in this encounter Additional Health Concerns Assessment Noted Time PHQ-9 Depression Total Score: 11 025 9:44 AM EDT documented as of this encounter Care Teams Straw Hat Presser Relationship Specialty Start Date End Date Shireen Stout MD [address] [place] [address] PCP - General Internal Medicine 09/08/22 documented as of this encounter
--- OUTSIDE RECORDS SUMMARY | 2025-01-28 10:49 | XMS_ITS | Encounter Summary ---
Author Organization [email or web address] Address 75 [facility] 7t [place] [address] Care Team Providers Care Therapeutic Strategy Lead Name Role Phone Shireen Stout MD Primary Care Pro vider Reason for Visit * Reason Comments Med Refill Encounter Details Date Type Department Care Team (Late st Contact Info) Description 07/27/2023 Refill [facility] CHC MED & PEDS [address] [place], [place] [phone] Shireen Stout MD 230 [place] [address] Diabetic peripheral neuropathy associated with type 2 [...] Description 02/25/2025 11:15 AM EST Office Visit [facility] MEDICINE [address] [place] [address] Shireen Stout MD [address] [place] [address] 03/17/2025 11:00 AM EST Office Visit [address] [address] [address] [address] documented as of this encounter Visit Diagnoses Diagnosis Diabetic peripheral neuropathy associated with type 2 diabetes mellitus (HCC) documented in this encounter Additional Health Concerns Assessment Noted Time PHQ-9 Depression Total Score: 5 12/16/19 23 2:02 PM EDT documented as of this encounter Care Teams Therapeutic Strategy Lead Relationship Specialty Start Date End Date Shireen Stout MD [address] [place] [address] PCP - General Internal Medicine 6/2/23 [facility] 09/22/24 12/28/24 documented as of this encounter
--- OUTSIDE RECORDS SUMMARY | 2025-01-28 10:49 | XMS_ITS | Encounter Summary ---
Author Organization [employer] Address 75 [facility] 7t [place] [address] Care Team Providers Care Grizzlyman Name Role Phone Shireen Stout MD Primary Care Pro vider Reason for Visit * Reason Comments Med Refill Encounter Details Date Type Department Care Team (Late st Contact Info) Description 10/17/[address] [facility] 230 [place], [place] [phone] Bruna Yusuf FNP 230 [place] [address] Social History Tobacco Use Types Packs/Day Years [...] Office Visit [facility] MEDICINE [address] [place] [address] Shireen Stout MD [address] [place] [address] 03/17/2025 11:00 AM EST Office Visit [address] [address] Rhoda Melvin CNM [address] [place] [address] documented as of this encounter Visit Diagnoses Not on filedocumented in this encounter Additional Health Concerns Assessment Noted Time PHQ-9 Depression Total Score: 5 12/16/19 23 2:02 PM EDT documented as of this encounter Care Teams Grizzlyman Relationship Specialty Start Date End Date Shireen Stout MD [address] [place] [address] PCP - General Internal Medicine 09/08/22 [facility] 09/22/24 12/28/24 documented as of this encounter
--- OUTSIDE RECORDS SUMMARY | 2025-01-28 10:49 | XMS_ITS | Encounter Summary ---
Author Organization [employer] Address 75 [facility] 7t [place] [address] Care Team Providers Care Piecer Up Name Role Phone Shireen Stout MD Primary Care Pro vider Reason for Visit * Reason Comments Med Refill Encounter Details Date Type Department Care Team (Late st Contact Info) Description 07/27/2023 Refill [facility] CHC MED & PEDS [address] [place], [place] [phone] Shireen Stout MD 230 [place] [address] Diabetic peripheral neuropathy associated with type 2 [...] AM EST Office Visit [facility] MEDICINE [address] [place] [address] Shireen Stout MD [address] [place] [address] 03/17/2025 11:00 AM EST Office Visit [address] [address] [address] [address] documented as of this encounter Visit Diagnoses Diagnosis Diabetic peripheral neuropathy associated with type 2 diabetes mellitus (HCC) documented in this encounter Additional Health Concerns Assessment Noted Time PHQ-9 Depression Total Score: 5 12/16/19 23 2:02 PM EDT documented as of this encounter Care Teams Piecer Up Relationship Specialty Start Date End Date Shireen Stout MD [address] [place] [address] PCP - General Internal Medicine 6/2/23 [facility] 09/22/24 12/28/24 documented as of this encounter
--- OUTSIDE RECORDS SUMMARY | 2025-01-28 10:49 | XMS_ITS | Encounter Summary ---
Author Organization [employer] Address 75 [facility] 7t [place] [address] Care Team Providers Care Clutch Assembler Name Role Phone Shireen Stout MD Primary Care Pro vider Reason for Visit * Reason Comments Med Refill Encounter Details Date Type Department Care Team ([facility] st Contact Info) Description 04/05/2023 Refill [facility] MEDICINE 230 [place], [place] [phone] Enedelia Coley MD 230 [place], [place] [phone] Social History Tobacco Use Types Packs/Day Years [...] Description 02/25/2025 11:15 AM EST Office Visit [facility] MEDICINE [address] [place] [address] Shireen Stout MD [address] [place] [address] 03/17/2025 11:00 AM EST Office Visit [facility] MEDICINE [address] [place] [address] Rhoda Melvin CNM [address] [place] [address] documented as of this encounter Visit Diagnoses Not on filedocumented in this encounter Additional Health Concerns Assessment Noted Time PHQ-9 Depression Total Score: 5 12/16/19 23 2:02 PM EDT documented as of this encounter Care Teams Clutch Assembler Relationship Specialty Start Date End Date Shireen Stout MD [address] [place] [address] PCP - General Internal Medicine 09/08/22 [facility] 09/22/24 12/28/24 documented as of this encounter
--- OUTSIDE RECORDS SUMMARY | 2025-01-28 10:49 | XMS_ITS | Patient Health Record ---
Author Organization [facility] Address [address] [place] [address] Care Team Providers Care Concrete Finisher Name Role Phone Víctor Euceda Jr Reason For Referral No Information Plan Of Treatment No Information
--- OUTSIDE RECORDS SUMMARY | 2025-01-28 10:49 | XMS_ITS | Encounter Summary ---
Author Organization [employer] Address [address] [place] [address] 7t [place] [address] Care Team Providers Care Mind Reader Name Role Phone Tonja Guzmán CARDIOTHORACIC SURGEON Primary Care Provider Shireen Acuña MD Primary Care Pro vider Encounter Details Date Type Department Care Team (Late st Contact Info) Description 06/27/[address] [phone] Provider, MD Ja Social History Tobacco Use [...] 02/25/2025 11:15 AM EST Office Visit [address] [phone] Shireen Stout MD [address] [place] [address] [phone] 03/17/2025 11:00 AM EST Office Visit [facility] MEDICINE [address] [place] [address] [phone] Rhoda Melvin CNM [address] [place] [address] [phone] documented as of this encounter Procedures Procedure Name Priority Date/Time Associated Diagnosis Comments HEMOGLOBIN A1C (EXTERNAL RESULTS ONLY) Routine 04/20/2022 3:08 PM EST documented in this encounter Results * (ABNORMAL) Hemoglobin A1c (04/20/2022 3:08 PM EST) Hemoglobin A1C 8.9(A) 4.0 - 6.0 % Comment:[facility] [place] 04/20/2022 3:08 PM EST Narrative Eliza Salgado - 04/20/2022 3:08 PM EST A1c performed at [facility] [place] us Historical Provider POINT OF CARE TEST ENTER/ EDIT ORDERABLES Final Result documented in this encounter Visit Diagnoses Not on filedocumented in this encounter Care Teams Mind Reader Relationship Specialty Start Date End Date Tonja Guzmán FNP PCP - General Family Medicine 12/04/21 09/07/22 Shireen Stout MD [address] [place] [address] PCP - General Internal Medicine 09/08/22 [facility] 09/22/24 12/28/24 documented as of this encounter
--- OUTSIDE RECORDS SUMMARY | 2025-01-28 10:49 | XMS_ITS | Encounter Summary ---
Author Organization [employer] Address 75 [facility] 7t [place] [address] Care Team Providers Care Senior Java Ui Developer Name Role Phone Shireen Stout MD Primary Care Pro vider Encounter Details Date Type Department Care Team (Late st Contact Info) Description 12/13/2024 Orders Only [facility] MEDICINE 230 [place], [place] [phone] Lisa Mccurdy MD 230 [place], [place] [phone] Leg swelling (Primary Dx); Shortness of breath; [...] Description 02/25/2025 11:15 AM EST Office Visit [facility] MEDICINE [address] [place] [address] Shireen Stout MD [address] [place] [address] 03/17/2025 11:00 AM EST Office Visit [facility] MEDICINE [address] [place] [address] Rhoda Melvin CNM [address] [place] [address] documented as of this encounter Visit Diagnoses Diagnosis Leg swelling- Primary Swelling of limb Shortness of breath Heart failure with mid-range ejection fraction (HFmEF) ([facility]) documented in this encounter Additional Health Concerns Assessment Noted Time PHQ-9 Depression Total Score: 11 025 9:44 AM EDT documented as of this encounter Care Teams Senior Java Ui Developer Relationship Specialty Start Date End Date Shireen Stout MD [address] [place] [address] PCP - General Internal Medicine 09/08/22 [facility] 09/22/24 12/28/24 documented as of this encounter
--- OUTSIDE RECORDS SUMMARY | 2025-01-28 10:49 | XMS_ITS | Clinical Summary ---
Author Organization [facility] Address [address] [place] [address] Phone Care Team Providers Care Serials Librarian Name Role Phone Pranav Stout MD Primary Care Pro vider Allergies Active Allergy Reactions Criticality Noted Date Comments Jimmy Inhibitors 11/02/2023 Apple 11/02/2023 Romero 11/02/2023 Curry (Prunus Persica) 11/02/2023 Peanut 11/02/2023 Medications albuterol [...] [place] [employer] [place] Care Teams Serials Librarian Relationship Specialty Start Date End Date Pranav Stout MD 9 [facility] 9 [place] [phone] PCP - General 08/16/23
--- OUTSIDE RECORDS SUMMARY | 2025-01-28 10:49 | XMS_ITS | Clinical Summary ---
Author Organization [employer] Address [address] [place] [address] 7t [place] [address] Care Team Providers Care Coin Box Inspector Name Role Phone Shireen Stout MD [...] eye twice daily Active [facility] Test blood sugar twice daily as directed [...] Refills, Soft Stop, 06/18/24 12:20:00 PM EDT, [facility], Partial fill upon patient request [...] OP referral and reports was connected with [facility] in the past (about 4 / 5 [...] -2.7-on tx already -vaccines: hepAx2,hepBx3-Immune , Covid 26k1-Akusxhyo 10/2022, y82g3-k/p 20 x1, tdap 2022 ,s/p zoster vaccinex2 [...] value of -2.7-on tx already -vaccines: hepAx2,hepBx3,covid 24n3-Fhpogywb today, w85a0-p/p 20 x1, tdap 2012- today booster,s/p zoster [...] associated w vascular etiology and rec for wireless network engineer referral -pt was tx already w keflex 500 BID x 5 days at last apt w no change in rash -advised pt to raise leg -referred to wireless network engineer -pt using fungal cream chronically px by vascular Assessment & Plan (10/25/2022 1:41 PM EDT): Pt w chronic lower left leg pain and erythema -possible vascular in nature ? -I called today her vascular Dr Adame # [phone]-ytk staff pt was last seen in 04/2022 [...] some time -pt will check w her music minister if had recently any DEXA scan otherwise [...] Vit D 1999 -will check w her music minister if had recently any DEXA scan otherwise [...] heterogeneous left thyroid nodule. -pt f w music minister-advised pt to continue care w specialist ,pt will discuss tomorrow w specialist if had recently another US or if plan to repeat Assessment & Plan (10/25/2022 1:17 PM EDT): -thyroid US 2019: Small right lobe. Previously identified small right thyroid nodule is not appreciated. Enlarged left lobe. No appreciable change in the solitary, large, heterogeneous left thyroid nodule. -pt f w music minister-advised pt to continue care w specialist ,request [...] on basal insulin? --I called to her music minister-Dr Diamond at # [phone] at previous visit to discuss case. I [...] refused. -pt has f up apt w music minister tomorrow and advised to discuss about basal insulin ? - wet suit gluer 11/2022 mild non proliferative diabetic retinopathy to f in 6 mo -referred to bed machine operator today Assessment & Plan (11/22/2022 7:42 PM EDT): Pt w DM2 -insulin dependent w neuropathy Pt is on rapid insulin 220 u in am only and invokana 10/2022 hb1AC is 7.9<---8.9-elevated Gl at 259 .microalb neg , LDL 66 -unsure why pt is not on basal insulin? --I called to her music minister-Dr Diamond at # [phone] at previous visit to discuss case. I [...] refused. -pt has f up apt w music minister tomorrow and advised to discuss about basal insulin ? - wet suit gluer 11/2022 mild non proliferative diabetic retinopathy to f in 6 mo -referred to bed machine operator today Assessment & Plan (10/25/2022 1:12 PM EDT): Pt w DM2 -insulin dependent w neuropathy Pt is on rapid insulin 220 u in am only and invokana -today hb1AC is 8.9-elevated CBG at 392--> rechecked was 302 -unsure why pt is not on basal insulin? --I called today her music minister-Dr Diaomnd at # [phone] to discuss case. I left my cell [...] upcoming meal -will await call from her music minister to discuss plan of care and advised pt to call her specialist at to schedule apt for uncontrolled DM ,likely associated w her ongoing alcohol intake. -also was referred to DM educational by her music minister -referred today to wet suit gluer -will refer to bed machine operator at next apt -DM labs Essential hypertension [...] 466, HR 74x' 10/2022 Microalb neg - wet suit gluer 11/2022 Mild non proliferative diabetic retinopathy to [...] 466, HR 74x' 10/2022 Microalb neg - wet suit gluer 11/2022 Mild non proliferative diabetic retinopathy to f up in 6 mo -continue BP meds Assessment & Plan (10/25/2022 5:54 PM EDT): BP is controlled on ARBs -echo 2016 : EF between 55-60 %.Normal -nuclear stress test 2016: without EKG changes meeting criteria for ischemia. -cardiac cath 2016: non obstructive CAD -referred to wet suit gluer -microalb -will check EKG at next apt [...] order new one -referred back to her laborer tanbark to continue care-has apt on 12/2022 Assessment [...] to start trelegy -referred back to her laborer tanbark to continue care -request ALFRED -RACQUEL to [...] diet and exercise,discussed healthy life style -discussed [facility] electronic referral --referred already has apt for next month Assessment & Plan (10/25/2022 1:12 PM EDT): Advised pt to improve diet and exercise,discussed healthy life style -discussed [facility] electronic referral --referred today Smoker 03/25/2015 Assessment & [...] hypoventilatory changes or air trapping. -requested to PA to obtain last CT chest done per [...] to discuss with her primary care or mechanical service specialist on getting treatment for alcohol dependence. We discussed using insulin pump, as referenced in music minister note but this time patient does not feel that she can manage an insulin pump independently. Reviewed with patient how to treat hypoglycemia, hypoglycemic handout in English given to patient Encounters Date Type Department Care Team Description 01/22/2025 Orders Only [facility] [place] [address] Shireen Stout MD Type 2 diabetes mellitus with hyperglycemia, without long-term current use of insulin ([facility]) (Primary Dx) 01/22/2025 Telephone [facility] [address] [place] [phone] Shrieen Stout MD Referral 01/15/2025 1:40 PM EDT Office Visit [facility] [address] Neda Rae DO Pain of left great toe (Primary Dx) 01/15/2025 Travel 01/08/[address] [address] Shireen Stout MD 12/30/2024 Telephone [facility] [address] [place] [phone] Maricruz Amato [place] 12/18/[address] [address] Kavitha Ortiz, RN NTTS 12/13/2024 Results Follow-Up [address] [address] Lisa Mccurdy MD POCT Hgb A1c, POCT Glucose, Basic Metabolic Panel, Additional followed-up results: 4 12/13/2024 Orders Only [address] [address] Lisa Mccurdy MD Leg swelling (Primary Dx); Shortness of breath; Heart failure with mid-range ejection fraction (HFmEF) ([facility]) 12/11/2024 9:30 AM EDT Office Visit [address] [address] Lisa Mccurdy MD Essential hypertension (Primary Dx); [...] Travel 12/05/2024 1:00 PM EDT Office Visit [facility] [address] [place] [phone] Terrence Avila MD Alcohol use disorder, severe, dependence (CMS/HCC) (Primary Dx) 12/05/2024 Travel 12/03/[address] [address] Shireen Stout MD Nurse Triage 11/28/2024 Patient Outreach [address] [address] Shireen Stout MD Transition Of Care (Tcm) (HDF- scheduled (direct)) 11/25/[address] [address] Shireen Stout MD chart prep 11/12/2024 Results Follow-Up [facility] [address] [place] [phone] Shireen Stout MD Us Pelvis complete 11/11/2024 Orders Only [facility] External Provider, [facility] 11/11/2024 Refill [facility] [address] [place], [place] [phone] Lisa Mccurdy MD Mixed hyperlipidemia from Last [...] Description 02/25/2025 11:15 AM EST Office Visit [address] [address] Shireen Stout MD [address] [place] [address] 03/17/2025 11:00 AM EST Office Visit [facility] [address] [place] [address] Wu Arroyo CNM [address] [place] [phone] Health Maintenance Due Date Last Done Comments [...] PM EDT Narrative 01/23/2025 3:12 PM EDT [address] [address] Ultrasound Report Signed Patient: Shireen Tavarez MR#: [id number] 1 : 1960 Acct:[id number] Age/Sex: 64 / F ADM Date: 01/23/25 Loc: HO.US Attending Dr: Melchor Nunn MD Ordering Physician: Melchor Nunn MD Date of Service: 01/23/25 Procedure(s): US pelvic and transvaginal Accession Number(s): [id number] cc: Shireen Stout MD; Melchor Nunn MD [...] 01/23/25 1509 DD/ 1418 TD/TT: 01/23/25 1435 Living Supervisor: Procedure Note Donotuseinterpreter, Image - 01/23/[address] [address] Ultrasound Report Signed Patient: Shireen TavarezMR#: [id number] 1 : 9Acct:[id number] Age/Sex: 64 / FADM Date: 01/23/25 Loc: HO.US Attending Dr: Melchor Nunn MD Ordering Physician: Melchor Nunn MD Date of Service: 01/23/25 Procedure(s): US pelvic and transvaginal Accession Number(s): [id number] cc: Shireen Stout MD; Melchor Nunn MD [...] 01/23/25 1509 DD/ 1418 TD/TT: 01/23/25 1435 Living Supervisor: us [facility] External Provider IMG US PROCEDURES Final Result * XR Toes 2+ Left (01/15/2025 3:59 PM EDT) Anatomical Region Laterality Modality Lower Extremities, Toes Left Radiogra phic Imaging 01/15/2025 3:59 PM EDT Narrative 01/15/2025 4:23 [place] [address] XRay Report Signed Patient: Shireen Tavarez MR#: [id number] 1 : 1960 Acct:[id number] Age/Sex: 64 / F ADM Date: 01/15/25 Loc: HO.HHCX Attending Dr: Neda Rae DO Ordering Physician: Neda Rae DO Date of Service: 01/15/25 Procedure(s): XR toe LT min 2V Accession Number(s): [id number] cc: Neda Rae DO Reason for Exam: [...] 01/15/25 1620 DD/ 155 TD/TT: 01/15/25 1600 Living Supervisor: Procedure Note Donotjeffryinterpreter, Image - 01/15/[address] [address] XRay Report Signed Patient: Hunter Tavarez#: [id number] 1 : 9Acct:[id number] Age/Sex: 64 / FADM Date: 01/15/25 Loc: .HHCX Attending Dr: Neda Rae DO Ordering Physician: Neda Rae DO Date of Service: 01/15/25 Procedure(s): XR toe LT min 2V Accession Number(s): [id number] cc: Neda Rae DO Reason for Exam: [...] 01/15/25 1620 DD/ 155 TD/TT: 01/15/25 1600 Living Supervisor: Neda Rae DO IMG XR PROCEDURES Final Resu lt * Vitamin D, 25-Hydroxy, Total, Immunoassay (12/11/2024 11:04 AM EDT) Vitamin D 25-OH Total 36.6 >30 ng/mL [facility] Comment: Health Based Reference Values*< 20 ng/mL Ulltgwxct03-47 ng/mL Insufficient> 30 ng/mL Sufficient*Acosta BERMUDEZ. N [...] ORDERABLES Final Resul t Performing Organization Address City/[facility]/ZIP Co de Phone Number [facility] [address] [place] [phone] * TSH with Reflex to Free T4 (12/11/2024 11:04 AM EDT) TSH reflex Free T4 0.39 0.32 - 4.0 uIU/mL [facility] Blood 12/11/2024 11:0 4 AM EDT 12/11/2024 1:28 PM EDT us Lisa Mccurdy MD LAB BLOOD ORDERABLES Final Resul t [facility] [address] [place] [phone] * (ABNORMAL) NT-proBNP (12/11/2024 11:04 AM EDT) Pathologist [facility] NT-proBNP 517(A) <125 pg/mL [facility] Comment:THIS TEST WAS PERFOR MED AT:[facility] [place] [phone] AGUIRRE MD Venous blood specimen / Unknown 12/11/2024 11:04 AM EDT 12/11/2024 1:16 PM EDT us Lisa Mccurdy MD LAB BLOOD ORDERABLES Final Resul t [facility] [address] [place] [phone] * (ABNORMAL) CBC auto differential (12/11/2024 11:04 AM EDT) Pathologist [facility] White Blood Count 5.6 4.8 - 10.8 X10*3/uL [facility] Red Blood Count 3.38(L) 4.20 - 5.50 X10*6/uL [facility] Hemoglobin 10.4(L) 12.0 - 16.0 g/dl [facility] Hematocrit 32.1(L) 37.0 - 47.0 % [facility] Mean Corpuscular Volume 95.0 80.0 - 98.0 fL [facility] Mean Corpuscular Hemoglobin 30.8 27.0 - 33.0 pg [facility] Mean Corpuscular HGB Conc 32.4 31.0 - 35.0 g/dl [facility] Red Cell Distribution Width 15.6 11.0 - 16.0 % [facility] Platelet Count 199 160 - 400 X10*3/uL [facility] Mean Platelet Volume 10.1 9.4 - 12.3 fL [facility] Neutrophils Percent Auto 65.0 45 - 73 % [facility] Imm Gran Pct Auto 0.5(H) 0.0 - 0.4 % [facility] Lymphocytes Percent Auto 25.4 20 - 40 % [facility] Monocytes Percent Auto 6.6 2 - 11 % [facility] Eosinophils Percent Auto 2.0 0 - 4 % [facility] Basophils Percent Auto 0.5 0 - 2 % [facility] NRBC Pct Auto 0.0 0.0 - 0.2 /100WBC [facility] Neutrophils Absolute Auto 3.6 2.0 - 8.3 x10*3/uL [facility] Imm Gran Abs Auto 0.03 0.00 - 0.03 X10*3/uL [facility] Lymphocytes Absolute Auto 1.4 1.2 - 4.9 X10*3/uL [facility] Monocytes Absolute Auto 0.4 0.1 - 1.2 X10*3/uL [facility] Eosinophils Absolute Auto 0.1 0.0 - 0.4 X10*3/uL [facility] Basophils Absolute Auto 0.0 0.0 - 0.2 X10*3/uL [facility] NRBC Abs Auto 0.000 0.0 - 0.012 X10*3/uL [facility] Blood Venous blood specimen / Unknown 12/11/2024 11:04 AM EDT 12/11/2024 1:28 PM EDT us Lisa Mccurdy MD LAB BLOOD ORDERABLES Final Resul t [facility] [address] [place], [place] [phone] * (ABNORMAL) Basic Metabolic Panel (12/11/2024 11:04 AM EDT) Sodium 144 135 - 145 mmol/L [facility] Potassium 3.6 3.3 - 5.1 mmol/L [facility] Chloride 106 96 - 108 mmol/L [facility] Carbon Dioxide 31(H) 22 - 29 mmol/L [facility] Anion Gap 11(L) 12 - 20 [facility] Urea Nitrogen (BUN) 5(L) 9 - 16 mg/dL [facility] Creatinine, Serum 0.56 0.5 - 1.4 mg/dL [facility] Estimated Glomerular Filt Rate >60 [facility] Comment:Chronic Kidney Disea se: Estimated GFR < 60 mL/min/1.74r5Tuduif Kidney Disease: Estimated GFR < 15 mL/min/1.73m2 Glucose 182(H) 60 - 115 mg/dL [facility] Calcium 9.2 8.4 - 10.2 mg/dL [facility] Blood Venous blood specimen / Unknown 12/11/2024 11:04 AM EDT 12/11/2024 1:28 PM EDT Lisa Mccurdy MD LAB BLOOD ORDERABLES Final Resul t [facility] [address] [place] [phone] * POCT Hgb A1c (12/11/2024 9:46 [...] AM EDT Narrative 11/12/2024 10:38 AM EDT [address] [address] Ultrasound Report Signed Patient: Shireen Tavarez MR#: [id number] 1 : 1960 Acct:[id number] Age/Sex: 63 / F ADM Date: 11/11/24 Loc: [place] [address]: Dylan Adams MD Ordering Physician: Gerri Walls MD Date of Service: 11/12/24 Procedure(s): US pelvic complete Accession Number(s): [id number] cc: Gerri Walls MD; Shireen Stout MD [...] limited by lack of an endovaginal scan. MEDICAL TECHNOLOGIST consultation is recommended. Electronically signed by: Kaushik Ramirez MD 11/12/2024 10:35 AM EDT Dictated By: Kaushik Ramirez MD Signed By: <Electronically signed by Kaushik Ramirez MD in OV> 11/12/24 1035 DD/ TD/TT: 11/12/24 0948 Living Supervisor: Procedure Note Donotuseinterpreter, Image - 11/12/[address] [address] Ultrasound Report Signed Patient: Hunter Tavarez#: [id number] 1 : 9Acct:[id number] Age/Sex: 63 / FADM Date: 11/11/24 Loc: [facility]- Attending Dr: Dylan Adams MD Ordering Physician: Gerri Walls MD Date of Service: 11/12/24 Procedure(s): US pelvic complete Accession Number(s): [id number] cc: Gerri Walls MD; Shireen Stout MD [...] limited by lack of an endovaginal scan. MEDICAL TECHNOLOGIST consultation is recommended. Electronically signed by: Kaushik Ramirez MD 11/12/2024 10:35 AM EDT Dictated By: Kaushik Ramirez MD Signed By: <Electronically signed by Kaushik Ramirez MD in OV> 11/12/24 1035 DD/ 0945 TD/TT: 11/12/24 0948 Living Supervisor: [facility] External Provider IMG US PROCEDURES Final Result * (ABNORMAL) High Sensitivity Troponin I (11/11/2024 3:41 PM EDT) TROPONIN I HIGH SENSITIVITY 52.5(HH) <3.5 - 17.0 ng/L [facility] Comment:Critical value for t est(s): TROPONIN Results called to keylamaame back by: FANY Person calling:[id number] Date: 11/11/24Time:1612[employer] high sensitivity Troponin-I results should beused in conjunction with other diagnostic information suchas ECG, clinical observations and information, and patientsymptoms to aid in the diagnosis of AK. 11/11/2024 3:41 PM EDT 11/11/2024 3:49 PM EDT Generic External Data Provider LAB BLOOD ORDERAB LES Final Result Performing Organization Address City/[facility]/ZIP Co de Phone Number [facility] [address] [place] [phone] * Lactic Acid (11/11/2024 3:41 PM EDT) Lactic Acid 1.6 0.5 - 2.0 mmol/L [facility] 11/11/2024 3:41 PM EDT 11/11/2024 3:49 PM EDT Generic External Data Provider LAB BLOOD ORDERAB LES Final Result Performing Organization Address City/[facility]/ZIP Co de Phone Number [facility] [address] [place] [phone] * CT Abdomen Pelvis w/ Contrast (11/11/2024 1:21 PM EDT) Anatomical Region Laterality Modality Body, Pelvis, Abdomen Computed T omography 11/11/2024 1:21 PM EDT Narrative 11/11/2024 2:59 PM EDT [address] [address] [address] Scan Report Signed Patient: Shireen Tavarez MR#: [id number] 1 : 1960 Acct:[id number] Age/Sex: 63 / F ADM Date: 11/11/24 Loc: HO.ED Attending Dr: Ordering Physician: Libertad Elena Date of Service: 11/11/24 Procedure(s): CT abdomen pelvis w IV con Accession Number(s): [id number] cc: Shireen Stout MD; Libertad Elena Report Number: [id number]: Total DLP = 448.00 mGy-cm EXAMINATION: CT [...] 11/11/24 1457 DD/ 1321 TD/TT: 11/11/24 1445 Living Supervisor: Procedure Note Donotuseinterpreter, Image - 11/11/[address] [place] [address] [address] Scan Report Signed Patient: Shireen Tavarez#: [id number] 1 : 1960cct:[id number] Age/Sex: 63 / FADM Date: 11/11/24 Loc: HO.ED Attending Dr: Ordering Physician: Libertad Elena Date of Service: 11/11/24 Procedure(s): CT abdomen pelvis w IV con Accession Number(s): [id number] cc: Shireen Stout MD; Libertad Elena Report Number: [id number]: Total DLP = 448.00 mGy-cm EXAMINATION: CT [...] 11/11/24 1457 DD/ 1321 TD/TT: 11/11/24 1445 Living Supervisor: [facility] External Provider IMG CT PROCEDURES Edited Result - Final * BI Mammogram Screening Tomosynthesis Bilateral (06/30/2024 10:15 AM EDT) Anatomical Region Laterality Modality Breast Bilateral Mammography 06/30/2024 10:1 5 AM EDT Narrative 07/06/2024 8:14 PM EDT [address] [place] [address] Mammography Report Signed Patient: Shireen Tavarez MR#: [id number] 1 : 1960 Acct:[id number] Age/Sex: 63 / F ADM Date: 06/30/24 Loc: HO.MAMMO Attending Dr: Shireen Krishnan MD Ordering Physician: Shireen Stout MD Re sults: 2Benign Findings Date of Service: 06/30/24 Follow Up: 1 Year From Orig inal Mammogram Procedure(s): MM tomosynthesis screening BI Accession Number(s): [id number] cc: Shireen Stout MD EXAMINATION: MM SCREENING [...] OV> 07/06/242010 DD/ 1015 TD/TT: 06/30/24 1029 Living Supervisor: Procedure Note Donotuseinterpreter, Image - 07/06/2024 [facility] [address] [place] [address] Mammography Report Signed Patient: Shireen TavarezMR#: [id number] 1 : 9Acct:[id number] Age/Sex: 63 / FADM Date: 06/30/24 Loc: HO.MAMMO Attending Dr: Shireen Krishnan MD Ordering Physician: Shireen Stout sults: 2Benign Findings Date of Service: 06/30/24Follow Up: 1 Year From Orig inal Mammogram Procedure(s): MM tomosynthesis screening BI Accession Number(s): [id number] cc: Shireen Stout MD EXAMINATION: MM SCREENING [...] OV> 07/06/242010 DD/ 1015 TD/TT: 06/30/24 1029 Living Supervisor: us Shireen Krishnan MD IMG BI PROCEDURES Edited Result - Final * Hepatitis C Antibody with Reflex to HCV, RNA, Quantitative, Real-Time PCR (02/28/2024 11:10 AM EST) Hepatitis C Antibody Nonreactive Nonreactive [facility] Comment:Antibodies to HCV no t detected; does not exclude early acuteHCV infection. Blood Venous blood specimen / Unknown 02/28/2024 11:10 AM EST 02/28/2024 11:10 AM EST us Shireen Krishnan MD LAB BLOOD ORDERAB LES Final Result [facility] [address] [place] [phone] * Lipid Panel, Standard (02/28/2024 11:10 AM EST) Triglycerides 132 <150 mg/dL [facility] Comment:Desirable Triglyceri de: less than 150 mg/dLBorderline High Triglyceride 150-199 mg/dLHigh Triglyceride: 200-499 mg/dLVery High Triglyceride: greater than or equal to 5OO mg/dL Cholesterol 128 <200 mg/dL [facility] Comment:Desirable Cholestero l: less than 200 mg/dLBorderline High Cholesterol: 200-239 mg/dLHigh Cholesterol: greater than 239 mg/dL LDL Cholesterol Calculated 56 <100 mg/dL [facility] Comment:Desirable LDL: less than 100 mg/dLNear Optimal/Above Optimal LDL: 110- 129 mg/dLBorderline High LDL: 130-159 mg/dLHigh LDL: 160-189 mg/dLVery High LDL: greater than or equal to 190 mg/dL HDL Cholesterol 46 >40 mg/dL [facility] Comment:Desirable HDL: great er than 40 mg/dL Note: This HDL assay may give artificially low results in patients with liver disease. Blood Venous blood specimen / Unknown 02/28/2024 11:10 AM EST 02/28/2024 11:10 AM EST us Shireen Krishnan MD LAB BLOOD ORDERAB LES Final Result Performing Organization Address City/[facility]/ZIP Co de Phone Number [facility] [address] [place] [phone] * Albumin, Random Urine W/Creatinine (02/28/2024 11:05 AM EST) Creatinine, Urine 80.33 mg/dL [facility] Microalbumin Urine <5.0 mg/L [facility] Microalbum Creatinine Ratio Ur TNP <30 ug/mg cr [facility] Comment:Unable to calculate albumin/creatinine ratio due to lowmicroalbumin or creatinine result. Urine (Urine, Random) 02/28/2024 11:05 AM EST 02/28/2024 12:03 PM EST us Shireen Krishnan MD LAB URINE ORDERAB LES Final Result Performing Organization Address City/[facility]/ZIP Co de Phone Number [facility] [address] [place] [phone] * HPV mRNA E6/E7 w/Reflex to HPV Genotypes 16, 18/45 (02/19/2023 10:03 AM EST) HPV nRNA E6/E7 Not Detected Not Detected [facility] Comment:Methodology: Transcr iption-Mediated AmplificationThis assay detects E6/E7 viral messenger RNA (mRNA) from 14high-risk HPV types (16,18,31,33,35,39,45,51,52,56,58,59,66,68).Cervical sources are required for HPV testing.If a vaginal source from a patient who has had atotal hysterectomy with removal of cervix wassubmitted, please contact the testing laboratoryfor alternative testing options.For additional information, please refer tohttp://education.Likelii/faq/MLM569t3(This link if provided for information/educational purposes only.)THIS TEST WAS PERFORMED AT:[facility] [place] [phone] AGUIRRE MD HPV mRNA E6/E7 TNP [facility] HPV 16 RNA [facility] HPV 18/45 RNA [facility] 02/19/2023 10:0 3 AM EST 02/20/2023 11:30 AM EST Wu Arroyo CNM LAB CYTOLOGY ORDERABLES F inal Result [facility] [address] [place] [phone] * Pap Smear (02/19/2023 10:03 AM EST) 02/19/2023 10:0 3 AM EST 02/20/2023 11:30 AM EST Narrative [facility] - 03/09/2023 12:47 PM EST ----- ------- Name: Shireen Tavarez Age/Sex: 62/F : 1960 Unit#: [id number] Attend Dr: WU ARROYO CNM Re02/19/23 Status: DEP [facility] ----- ------- SPEC : [id number] RECD: 02/20/23 STATUS: LUCIA CALVERT NUM: [id number] NATALIE: 02/19/23-[address]: WU ARROYO [facility] ENTERED: 02/20/23 SP TYPE: Pap Smr OT DR: ORDERED: Pap Smear Interpretation Satisfactory for evaluation. Negative for intraepithelial lesion or malignancy. HPV mRNA E6/E7: NOT DETECTED This assay detects E6/E7 viral messenger RNA (mRNA) from 14 high-risk HPV types (16, 18, 31, 33, 35, 39, 45, 51, 52, 56, 58, 59, 66, 68) HPV testing performed by [employer], [place], [place]. See reference laboratory portion of the EMR for entire report. Clinical Information LMP: Postmenopausal Previous PAP test: 2017, ASCUS HPV neg Material Received ThinPrep-Cervical ----- ------- Signed (signature on file) [facility] 03/09/23 1247 ----- ------- END OF REPORT Wu Arroyo CNM LAB CYTOLOGY ORDERABLES F inal Result [facility] [address] [place] [address] [phone] * Colonoscopy (05/04/2016) Colonoscopy performed Historical Provider HEALTH MAINTENANCE Final Result from Last 3 Months or Most Recently Relevant to Health Maintenance Insurance [facility]O D-SNP[facility] [place] [phone] [place] [id number] Care Teams Coin Box Inspector Relationship Specialty Start Date End Date Shireen Stout MD [address] [place] [id number] PCP - General Internal Medicine 09/08/22
--- OUTSIDE RECORDS SUMMARY | 2025-01-28 10:49 | XMS_ITS | Encounter Summary ---
Author Organization [employer] Address [address] [facility] [address] [place] [address] Care Team Providers Care Custodial Operations Manager Name Role Phone Shireen Stout MD Primary Care Pro vider Reason for Visit * Reason Onset Date Comments Nurse Triage 12/03/2024 Encounter Details Date Type Department Care Team ([facility] st Contact Info) Description 12/03/2024 Telephone [facility] [address] [place] [address] Shireen Stout MD [address] [place] [address] Nurse Triage Social History Tobacco Use Types [...] have a UTI. Call to Pt with [facility] staff interpreter [place] [id number]. Pt is speaking for Pt who is [...] 7pm to come in the morning instead. Watch Train Assembler did indicate that on INstead Pt request. [...] The caller accepted this outcome. Pt is swedish soeaking Visiting nurse speaks syrian documented in this encounter Plan of Treatment Upcoming Encounters Date Type Department Care Team (Late st Contact Info) Description 02/25/2025 11:15 AM EST Office Visit [facility] [address] [place] [phone] Shireen Stout MD [address] [place] [phone] 03/17/2025 11:00 AM EST Office Visit [facility] [address] [place] [phone] Rhoda Melvin CNM [address] [place] [address] documented as of this encounter Visit Diagnoses Not on filedocumented in this encounter Additional Health Concerns Assessment Noted Time PHQ-9 Depression Total Score: 11 025 9:44 AM EDT documented as of this encounter Care Teams Custodial Operations Manager Relationship Specialty Start Date End Date Shireen Stout MD [address] [place] [phone] PCP - General Internal Medicine 09/08/22 [facility] 09/22/24 12/28/24 documented as of this encounter
== END 2025-01-28 09:29 | disposition home or self-care (01) ==
LOC: HO.CT 09:28
PROVIDERS: PCP Student in an Organized Health Care Education/Training Program; Visit Provider Physician Assistant Medical
DX: Z12.2 Encounter for screening for malignant neoplasm of respiratory organs (principal); Z87.891 Personal history of nicotine dependence
CPT/HCPCS: 71271

== ENCOUNTER → 2025-01-28 09:31 | Outpatient (BNV) | payer OTHER, SELFPAY | PROVIDERS: PCP Student in an Organized Health Care Education/Training Program; Visit Provider Radiology Diagnostic Radiology | DX: Z87.891 Personal history of nicotine dependence (principal) | CPT/HCPCS: 71271 ==

== ENCOUNTER 2025-02-04 15:04 | Inpatient (IN) | payer OTHER, SELFPAY ==
--- NOTE | ~2025-02-04 | XR_ITS ---
EXAMINATION: XR FOOT, LEFT CLINICAL INFORMATION: trauma COMPARISON: Radiographs on January 15, 2025 TECHNIQUE: AP, lateral, and oblique views of the left foot. FINDINGS: Toes are in flexed position, which limits their evaluation. Diffuse bone demineralization with superimposed structures partially limits evaluation. Destructive appearance of the distal aspect of the first distal phalanx. No displaced acute fracture. No obvious dislocation. Diffuse soft tissue swelling, without areas of abnormal lucency. No radiopaque foreign body. XR/XR foot LT min 3V IMPRESSION: Partially limited examination. 1. No obvious displaced acute fracture or dislocation. 2. Abnormal finding in the distal aspect of first distal phalanx, concerning for osteomyelitis in appropriate clinical setting. Electronically signed by: Lena Edwards MD 02/04/2025 04:04 PM EDT
--- NOTE | ~2025-02-04 | XR_ITS ---
EXAMINATION: XR CHEST CLINICAL INFORMATION: SOB COMPARISON: December 21, 2021 TECHNIQUE: Frontal view of the chest was obtained. FINDINGS: Free air beneath the right hemidiaphragm, moderate volume. Pulmonary reticular pattern. No hyperinflation. Linear opacities lung bases. Heart silhouette is prominent, unchanged. No pneumothorax or pleural effusion Osteopenia versus the process. Multilevel spondylosis. Degenerative changes in the shoulders.. XR/XR chest 1V IMPRESSION: No pneumoperitoneum. Concerning for perforated viscus viscera. Discussed with the emergency nurse practitioner at 3:50 PM on February 04, 2025. Electronically signed by: Nate Stewart MD 02/04/2025 03:52 PM EDT
--- NOTE | ~2025-02-04 | CT_ITS ---
EXAMINATION: CT ABDOMEN PELVIS WITH IV CONTRAST HISTORY: upper abdominal pain, free air under diaphragm COMPARISON: Previous CT of the abdomen and pelvis most recent November 2024, pelvic ultrasound November 2024 and limited abdominal ultrasound most recently March 2024 and chest x-ray from earlier the same day TECHNIQUE: CT scan of the abdomen and pelvis was performed following administration of 85 mL Omnipaque 350 using standard departmental protocol. Coronal and sagittal reformatted images were generated and reviewed. This CT exam was performed with one or more of the following dose reduction techniques: automated exposure control, adjustment of the mA and/or kV according to patient size, use of iterative reconstruction technique. DLP: 446 mGy-cm FINDINGS: LOWER CHEST: Minimal subsegmental atelectasis at the lung bases. There is no pleural effusion. CARDIOVASCULATURE: Slightly enlarged heart. There is no pericardial effusion. LIVER: Nodular liver contour suggestive of cirrhosis. No focal liver lesion. No liver mass is identified. The hepatic and portal veins are patent. GALLBLADDER / BILE DUCTS: Cholecystectomy. There is no intra or extrahepatic biliary ductal dilatation. SPLEEN: The spleen is slightly enlarged measuring 14.7 cm in AP dimension.. Multiple focal low-attenuation splenic lesions measuring up to 1.4 cm axial image 22 series 2. These are similar to prior exam. PANCREAS: Atrophic changes. No mass or duct dilatation. ADRENAL GLANDS: Within normal limits. KIDNEYS/RETROPERITONEUM: No renal calculi are identified. There is no hydronephrosis. No renal masses are identified. LYMPH NODES: Small retroperitoneal lymph nodes in the abdomen and pelvis. An small periportal lymph nodes. No enlarged lymph nodes. VASCULATURE: Atherosclerotic disease. No aneurysm. Enlarged main portal vein, upper abdominal varices and recanalized paraumbilical vein suggestive of portal hypertension. Portal and hepatic veins are patent. Varices MESENTERY/PERITONEUM: No free fluid. No masses. There is no free intraperitoneal gas. Chest x-ray finding likely related to position of a right colon superior and lateral to the liver. STOMACH: Underdistended. Difficult to exclude mild circumferential wall or fold thickening of the proximal stomach. SMALL BOWEL: The small bowel is normal in caliber. COLON: The right colon is located lateral and superior to the liver. This likely accounts for question free air on chest x-ray from earlier the same day. Proximal colon is slightly distended and fluid-filled questionable for mild ileus. There is increased stool in the colon suggestive of mild constipation. APPENDIX: Normal. URINARY BLADDER/PELVIC ORGANS: The urinary bladder is unremarkable. Stable low-attenuation lesion in the uterus measuring 3.2 x 3.8 cm. This has very low-attenuation foci questionable for fat. 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 No adnexal mass. BONES / SOFT TISSUES: No suspicious bony or soft tissue abnormalities. Bones appear osteopenic are demineralized. No hernia. CT/CT abdomen pelvis w IV con IMPRESSION: No acute findings. No evidence of free air. Slightly distended fluid-filled colon superior and lateral to the right lobe of the liver accounting for chest x-ray finding. Question mild colonic ileus and constipation. Cirrhotic appearing liver, mild splenomegaly and evidence of portal hypertension. Multiple low-attenuation splenic lesions largest measuring 1.4 cm. This appears unchanged from previous exams and may be benign. This can be further characterized with MRI if clinically warranted. Stable 3.2 x 3.8 cm low-attenuation lesion in the uterus. 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 This could be further evaluated with pelvic MRI if clinically warranted. Electronically signed by: Gena Miranda MD 02/04/2025 05:22 PM EDT
[2025-02-04 15:11] VITALS: BP 102/54; BP 118/98; PULSE 71; PULSE 73; RESP 24; TEMP 36.6; O2SAT 100; O2SAT 99; BMI 22.3
[2025-02-04 15:43] LABS: MANUAL DIFF FLAG NO
[2025-02-04 15:45] LABS: Hematocrit 35.0 % (37.0-47.0); Hemoglobin 11.5 g/dl (12.0-16.0); Imm Gran Abs Auto 0.02 X10*3/uL (0.00-0.03); Imm Gran Pct Auto 0.2 % (0.0-0.4); Lymphocytes Absolute Auto 2.3 X10*3/uL (1.2-4.9); Mean Corpuscular HGB Conc 32.9 g/dl (31.0-35.0); Mean Corpuscular Hemoglobin 30.0 pg (27.0-33.0); Mean Corpuscular Volume 91.4 fL (80.0-98.0); NRBC Abs Auto 0.000 X10*3/uL (0.0-0.012); NRBC Pct Auto 0.0 /100WBC (0.0-0.2); Platelet Count 235 X10*3/uL (160-400); Red Blood Count 3.83 X10*6/uL (4.20-5.50); White Blood Count 8.2 X10*3/uL (4.8-10.8)
--- NOTE | 2025-02-04 15:52 | ED.GENADULT ---
HPI - General Adult General Chief complaint: Wound/Laceration Stated complaint: lt toe infection? Time Seen by Provider: 02/04/25 15:52 Source: patient and family (: Demarco who speaks Malay and Cambodian) Mode of arrival: ambulatory Limitations: language barrier History of Present Illness ED Provider: Dr. Doe Reed HPI narrative: 64-year-old Cambodian-speaking female with a history of coronary artery disease, asthma/COPD, GERD, cirrhosis, hypertension, dyslipidemia, osteoporosis, diabetes with diabetic neuropathy who presents emergency department for evaluation of left great toe pain and infection with the flesh peeling off close . Patient states that her toe became infected on 01/15/2025. She was seen at [facility] and started on antibiotic for 7 days. She states that the wound has gotten worse in the redness has gotten worse. She states she has been cleaning the wound with alcohol and hydrogen peroxide. She states she has a burning sensation in her toe which is 4 to 5/10. She had fever and chills. She is also complaining of a bladder infection with frequency, urgency, dysuria and lower abdominal pain. She states she has not been able to move her bowels he 3 days. She also complains of a productive cough for the past 4-5 days worse at night. She denied vaginal discharge or diarrhea. Related Data Home Medications ?Medication ?Instructions ?Recorded ?Confirmed lancets 28 gauge (FreeStyle #100 ea 03/16/20 12/18/24 Lancets) sertraline 50 mg tablet (Zoloft) 50 mg PO DAILY 03/16/20 02/04/25 pantoprazole 20 mg tablet,delayed 20 mg PO BID@0630,1630 04/28/21 02/04/25 release blood pressure test kit-large #1 ea 12/01/21 12/18/24 flash glucose scanning reader 12/01/21 12/18/24 (FreeStyle Lakeisha 2 [place]) flash glucose sensor (FreeStyle 12/01/21 12/18/24 Lakeisha 2 Sensor kit) losartan 25 mg tablet 25 mg PO DAILY 12/01/21 02/04/25 lancets 33 gauge (TRUEplus Lancets) #100 ea 04/20/22 12/18/24 pen needle, diabetic 32 gauge x #50 ea 04/20/22 12/18/24/ (BD Ultra-Fine Debbie Pen Needle) mirabegron 25 mg tablet,extended 25 mg PO DAILY 02/15/23 02/04/25 release 24 hr (Myrbetriq) Oxygen Home Use 06/11/23 12/18/24 nebulizers 06/11/23 12/18/24 ferrous sulfate 325 mg (65 mg 325 mg PO MOWEFR 08/09/23 02/04/25 iron) tablet (FeroSul) atorvastatin 40 mg tablet 40 mg PO BEDTIME 11/11/24 02/04/25 cetirizine 10 mg tablet 10 mg PO DAILY 11/11/24 02/04/25 fenofibrate micronized 134 mg 134 mg PO BEDTIME 11/11/24 02/04/25 capsule folic acid 1 mg tablet 1 mg PO DAILY 11/11/24 02/04/25 linaclotide 72 mcg capsule 72 mcg PO DAILY 11/11/24 02/04/25 (Linzess) naltrexone 50 mg tablet 50 mg PO DAILY 11/11/24 02/04/25 thiamine HCl (vitamin B1) 100 mg 100 mg PO DAILY 11/11/24 02/04/25 tablet calcium carbonate (Oyster Shell 500 mg PO BID 02/04/25 02/04/25 Calcium 500) cholecalciferol (vitamin D3) 50 50 mcg PO DAILY 02/04/25 02/04/25 mcg (2,000 unit) capsule (Vitamin D3) empagliflozin 10 mg tablet 10 mg PO DAILY 02/04/25 02/04/25 (Jardiance) gabapentin 300 mg capsule 300 mg PO BEDTIME 02/04/25 02/04/25 insulin glargine 100 unit/mL (3 30 unit subcut BEDTIME 02/04/25 02/04/25 mL) subcutaneous pen (Lantus Solostar U-100 Insulin) torsemide 10 mg tablet 10 mg PO DAILY 02/04/25 02/04/25 trazodone 100 mg tablet 100 mg PO BEDTIME 02/04/25 02/04/25 Previous Rx's ?Medication ?Instructions ?Recorded blood sugar diagnostic (FreeStyle #150 ea 09/28/20 Test strips) blood-glucose meter (FreeStyle #1 ea 06/24/21 [place] Lite kit) Allergies Allergy/AdvReac Type Severity Reaction Status Date / Time cornflower (Cornflower) Allergy Unknown ITCHY Verified 02/04/25 15:23 EYES/HIVES peach (PEACH) Allergy Unknown NATURAL Verified 02/04/25 15:23 FRUIT - MOUTH ITCHES cornell (cherries) Allergy Unknown Verified 02/04/25 15:23 morphine Allergy Itching Verified 02/04/25 15:23 apples Allergy Unknown Unknown Uncoded 02/04/25 15:23 peanut Allergy Unknown Unknown Uncoded 02/04/25 15:23 Review of Systems Review of Systems: Yes all other systems are reviewed and are negative [facility] Past Medical History Medical History Toe ulcer due to DM Abnormal CT scan, gastrointestinal tract Elevated troponin Cardiomyopathy CAD (coronary artery disease) Dyspnea Asthma-COPD overlap syndrome Alcohol use History of methadone use Personal history of nicotine dependence Asthma Obesity (BMI 30-39.9) GERD (gastroesophageal reflux disease) Cirrhosis Vitamin D deficiency Hypertension Dyslipidemia Non-toxic multinodular goiter Osteoporosis Diabetic 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 with type 2 diabetes mellitus 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 (current) use of insulin Diabetes type 2, uncontrolled Surgical History Status post biopsy of thyroid gland History of colonoscopy (~2016) Hx of cataract extraction History of esophagogastroduodenoscopy (EGD) (~2020) Hx of cardiac cath (~12/2015) Hx of cholecystectomy (~1980) History of bladder surgery (~06/2019) Family History Family History Father Esophageal cancer Mother Diabetes mellitus HTN (hypertension) Social History Social History Household Members: Spouse Housing: Apartment Do you presently have visiting nurse or other home services: Yes ([employer].) Alcohol intake: former Patient Tobacco Use Status: Former Tobacco user Tobacco use type: Cigarette Years Smoked: Onset 27, 2ppd x 24yrs, 48pyh, quit 11/2012 Smoked in Last 30 Days: No Use of substances other than those prescribed or required for medical reasons: No Currently Displaying Signs/Symptoms of Drug Intoxication Withdrawal: No Have you been hit, kicked, punched, or otherwise hurt by someone within the past year? If so, by whom?: No Do you feel safe in your current relationship?: Yes Is there a partner from a previous relationship who is making you feel unsafe now?: No Are you made to feel afraid or neglected: No Advance Directives: Yes Advance Directives on File: Yes Advance Directives Date on File: 02/28/21 Do you have a plan to hurt others: No Plan Recently lost weight without trying: No How much weight loss: Not applicable Eating poorly because of decreased appetite: No Nutrition screen score: 0 Nutrition Risks: No Nutritional Risk Patient : No : No Poor oral hygiene: No service: No Physical Exam ED Vital Signs: Vital Signs - 24 hr 02/04/25 18:36 Temperature 98.4 F Pulse Rate 71 Respiratory Rate 16 Blood Pressure 150/59 H Pulse Oximetry 100 Oxygen Delivery Method Nasal Cannula Oxygen Flow Rate 2 BMI result Body Mass Index 22.3 Vital signs revealed blood pressure of 102/54 otherwise unremarkable. Exam: General: Awake, alert in no distress, anxious Head: Normocephalic, atraumatic EENT: PERRL, sclera and conjunctiva are normal, mouth with no erythema or exudates Neck: Supple, no adenopathy Lung: breath sounds symmetric, no wheezing, no rales and no rhonchi Chest: symmetric movement, nontender Heart: regular rate and rhythm, normal S1, S2 no murmurs or rubs Abdomen: soft, moderate upper abdominal tenderness with mild left lower quadrant tenderness, voluntary guarding, no rebound, bowel sounds were normal Back: no vertebral tenderness, no CVAT Extremities: Patient has erythema to the left great toe extending extending to the MTP joint with erythema noted along the medial aspect of the lower extremity just above the ankle. Patient has a chronic appearing ulcer to the dorsal aspect of the great toe, no purulent discharge noted. Neuro: Awake, alert, oriented, normal speech, cranial nerves 2-12 intact, moves all extremities symmetrically Psych: Pleasant, cooperative Medications Administered Generic Name Dose Route Start Last Admin Trade Name Freq PRN Reason Stop Dose Admin Atorvastatin Calcium 40 mg 02/04/25 21:00 02/04/25 21:47 Atorvastatin Calcium 40 Mg Tablet PO 40 mg BEDTIME JONO Administration Calcium Carbonate 500 mg 02/04/25 21:00 02/05/25 07:59 Calcium Oyster Shell Elemental 500 Mg Tablet PO 500 mg BID JONO Administration Dextrose 25 gm 02/04/25 19:14 02/05/25 04:18 Dextrose 50 % 25 Gm/50 Ml Syringe IVPUSH 25 gm Q15M PRN Administration per Hypoglycemia Standing Ord. Protocol Empagliflozin 10 mg 02/05/25 09:00 02/05/25 08:00 Empagliflozin 10 Mg Tablet PO 10 mg DAILY JONO Administration Enoxaparin Sodium 40 mg 02/04/25 20:00 02/04/25 20:09 Enoxaparin Sodium 40 Mg/0.4 Ml Syringe SUBCUT 40 mg Q24H JONO Administration Fenofibrate 134 mg 02/04/25 21:00 02/04/25 22:08 Fenofibrate,Micronized 134 Mg Capsule PO 134 mg BEDTIME JONO Administration Folic Acid 1 mg 02/05/25 09:00 02/05/25 08:00 Folic Acid 1 Mg Tablet PO 1 mg DAILY JONO Administration Gabapentin 300 mg 02/04/25 21:00 02/04/25 21:47 Gabapentin 300 Mg Capsule PO 300 mg BEDTIME JONO Administration Glucose 15 gm 02/04/25 19:14 02/05/25 03:54 Glucose Gel 15 Gm Gel..Gram. PO 15 gm Q15M PRN Administration per Hypoglycemia Standing Ord. Protocol Piperacillin Sod/Tazobactam 50 mls @ 100 mls/hr 02/04/25 23:00 02/05/25 11:02 Sod 3.375 gm/ Sodium Chloride IV Infused Q6H JONO Infusion Insulin Human Lispro 0 unit 02/04/25 21:00 02/05/25 11:34 Insulin Lispro 100 Unit/Ml 3 Ml Vial SUBCUT Not Given QIDACHS [facility] Protocol Loratadine 10 mg 02/05/25 09:00 02/05/25 08:00 Loratadine 10 Mg Tablet PO 10 mg DAILY JONO Administration Losartan Potassium 25 mg 02/05/25 09:00 02/05/25 07:59 Losartan Potassium 25 Mg Tablet PO 25 mg DAILY JONO Administration Protocol Mirabegron 25 mg 02/05/25 09:00 02/05/25 08:03 Mirabegron 25 Mg Tab.Er.24h PO 25 mg DAILY JONO Administration Naltrexone HCl 50 mg 02/05/25 09:00 02/05/25 08:00 Naltrexone Hcl 50 Mg Tablet PO 50 mg DAILY JONO Administration Omeprazole 20 mg 02/05/25 06:30 02/05/25 05:12 Omeprazole 20 Mg Capsule.Dr PO 20 mg BID@0630,1630 JONO Administration Polyethylene Glycol 17 gm 02/05/25 09:00 02/05/25 07:59 Polyethylene Glycol 3350 17 Gm Powd.Pack PO 17 gm DAILY JONO Administration Senna 17.2 mg 02/04/25 21:00 02/04/25 21:47 Sennosides 8.6 Mg Tablet PO 17.2 mg BEDTIME JONO Administration Sertraline HCl 50 mg 02/05/25 09:00 02/05/25 08:00 Sertraline Hcl 50 Mg Tablet PO 50 mg DAILY JONO Administration Sodium Chloride 3 ml 02/05/25 00:00 02/05/25 08:03 0.9 % Sodium Chloride Flush 3 Ml Syringe IVFLUSH 3 ml QSHIFT JONO Administration Thiamine HCl 100 mg 02/05/25 09:00 02/05/25 08:00 Thiamine Hcl 100 Mg Tablet PO 100 mg DAILY JONO Administration Torsemide 10 mg 02/05/25 09:00 02/05/25 08:00 Torsemide 20 Mg Tablet PO 10 mg DAILY JONO Administration Protocol Trazodone HCl 100 mg 02/04/25 21:00 02/04/25 21:47 Trazodone Hcl 100 Mg Tablet PO 100 mg BEDTIME JONO Administration Vitamin D 50 mcg 02/05/25 09:00 02/05/25 07:59 Cholecalciferol (Vitamin D3) 25 Mcg Tablet PO 50 mcg DAILY JONO Administration Discontinued Medications Generic Name Dose Route Start Last Admin Trade Name Freq PRN Reason Stop Dose Admin Diphenhydramine HCl 12.5 mg 02/04/25 16:20 02/04/25 16:48 Diphenhydramine Hcl 50 Mg/Ml Vial IVPUSH 02/04/25 16:21 12.5 mg ONCE STA Administration Hydromorphone HCl 0.5 mg 02/04/25 16:20 02/04/25 16:48 Hydromorphone Hcl 1 Mg/Ml Syringe IVPUSH 02/04/25 16:21 0.5 mg ONCE STA Administration Protocol Sodium Chloride 1,000 mls @ 999 mls/hr 02/04/25 16:20 02/04/25 16:48 Ns IV 02/04/25 17:20 Not Given .Q1H1M STA Piperacillin Sod/Tazobactam 100 mls @ 200 mls/hr 02/04/25 16:20 02/04/25 17:18 Sod 4.5 gm/ Sodium Chloride IV 02/04/25 16:49 Infused ONCE ONE Infusion Vancomycin HCl 1,500 mg/ 500 mls @ 333.333 mls/hr 02/04/25 16:20 02/04/25 19:00 Sodium Chloride IV 02/04/25 17:49 Infused ONCE ONE Infusion Sodium Chloride 1,769.01 mls @ 1,769.01 mls/hr 02/04/25 16:51 02/04/25 19:00 Ns 30 ml/kg infuse over 1 hr (1769.01 ml) 02/04/25 17:50 Infused IV Infusion .Q1H STA Vancomycin HCl 1,000 mg/ 270 mls @ 270 mls/hr 02/05/25 05:00 02/05/25 06:15 Sodium Chloride IV Infused Q12H JONO Infusion Insulin Glargine 30 unit 02/04/25 21:00 02/04/25 21:46 Insulin Glargine,Hum.Rec.Anlog 100 Unit/Ml 10 Ml Vial SUBCUT 30 unit BEDTIME JONO Administration Iohexol 100 ml 02/04/25 16:41 02/04/25 16:41 Iohexol 350 Mg/Ml 100 Ml Infus..Btl IV 02/04/25 16:42 100 ml ONCE ONE Administration Morphine Sulfate 15 mg 02/04/25 19:18 02/04/25 20:09 Morphine Sulfate Immed Release 15 Mg Tablet PO 02/04/25 19:19 Not Given ONCE ONE Medical Decision Making Medical Decision Making MDM Narrative: 64-year-old Cambodian-speaking female with a history of coronary artery disease, asthma/COPD, GERD, cirrhosis, hypertension, dyslipidemia, osteoporosis, diabetes with diabetic neuropathy who presents emergency department for evaluation of left great toe pain/diabetic foot ulcer/infection since 01/15/2025-completed 7 days of antibiotics. Upper abdominal pain with no bowel movement in 3 days, frequency, urgency, dysuria. Productive cough times 4-5 days with subjective fever and chills. Exam reveals infected toe, abdominal exam revealed moderate to severe upper abdominal tenderness. One-view chest x-ray was concerning for possible free air under the right bret diaphragm. Differential diagnosis: ?Includes but is not limited to left diabetic great toe ulcer,, osteomyelitis, left left great toe/foot cellulitis, gastritis, diverticulitis, pancreatitis, viscous perforation, viral syndrome, pneumonia, anemia, electrolyte abnormalities Course: 18:06 My independent interpretation patient's laboratory evaluation is as follows: WBC was normal 8200 with a normal differential. Chronic normocytic anemia with an H&H 11.5 and 35.0. ESR elevated 72. Coags were normal. VBG: PH 7.52, pCO2 42, PO2 42, bicarb 35-no acidemia which is reassuring. Bicarb elevated 30. Glucose elevated 195. CRP elevated 0.59. BNP elevated 417.9. Troponin below detectable limits. COVID influenza were negative. One-view chest x-ray obtained to evaluate the patient's cough revealed free air under the diaphragm. CT scan abdomen pelvis with IV contrast was obtained. CT scan did not reveal any free air but the patient does have a loop of colon positioned laterally between the liver and the diaphragm which explains the appearance of the chest x-ray. I did discuss the finding with the covering surgeon Dr. Bowser and her felt her could be caused by this loop of bowel which can cause abdominal pain, nausea and vomiting (Chilaiditi Syndrome). Dr. Bowser did evaluate the patient here in the emergency department. He agrees that the patient does not have a perforated viscus. Given her lower extremity findings and the osteomyelitis on the x-ray of her left great toe, he recommended that the patient should be admitted to the hospitalist service and he would consult on the patient's infected toe and osteomyelitis. Patient was treated with normal saline bolus 30 cc/kilogram, Zosyn 4.5 g IV, vancomycin 1.5 g IV. Patient's pain was treated with Dilaudid 0.5 mg IV and Benadryl 12.5 mg IV. 18:46 Urine microscopic revealed greater than 50 WBCs, 0 2 squamous cells, 2+ bacteria which is consistent with a urinary tract infection with should be sufficiently treated with the Zosyn and vancomycin. I did discuss the patient's presentation over tiger text with the admitting hospitalist, Dr. Dylan Ragland and the patient will be admitted for further treatment Differential Diagnosis Differential Diagnoses: The differential diagnosis associated with the presentation includes (See above) Admission/Observation Consideration of admission/observation: Escalation of care including admission/observation considered (Yes) Consult Healthcare Provider Management of the patient was discussed with: Hospitalist (Hospitalist, Dr. Dylan Ragland) and Ventilated Rib Fitter (General surgeon: Dr. Bowser) Lab Data MDM Lab Attestation statement: I reviewed the patient's lab results. 02/05/25 05:53 02/05/25 05:54 Labs: Lab Results 02/04/25 02/04/25 02/04/25 Range/Units 15:38 16:45 16:50 WBC 8.2 (4.8-10.8) X10*3/uL RBC 3.83 L (4.20-5.50) X10*6/uL Hgb 11.5 L (12.0-16.0) g/dl Hct 35.0 L (37.0-47.0) % MCV 91.4 (80.0-98.0) fL MCH 30.0 (27.0-33.0) pg MCHC 32.9 (31.0-35.0) g/dl RDW 14.1 (11.0-16.0) % Plt Count 235 (160-400) X10*3/uL MPV 9.9 (9.4-12.3) fL Immature Gran % (Auto) 0.2 (0.0-0.4) % Neut % (Auto) 65.5 (45-73) % Lymph % (Auto) 28.0 (20-40) % [place] % (Auto) 5.4 (2-11) % Eos % (Auto) 0.5 (0-4) % Baso % (Auto) 0.4 (0-2) % Lymph # (Auto) 2.3 (1.2-4.9) X10*3/uL [place] # (Auto) 0.4 (0.1-1.2) X10*3/uL Eos # (Auto) 0.0 (0.0-0.4) X10*3/uL Baso # (Auto) 0.0 (0.0-0.2) X10*3/uL Abs Immat Gran (auto) 0.02 (0.00-0.03) X10*3/uL Absolute Neuts (auto) 5.4 (2.0-8.3) x10*3/uL Absolute Nucleated RBC 0.000 (0.0-0.012) X10*3/uL Nucleated RBC % (auto) 0.0 (0.0-0.2) /100WBC ESR 72 H (0-20) MM/HR PT 13.5 H (10.9-12.4) SEC INR 1.2 H (0.9-1.1) APTT 29.1 (26.7-34.1) SEC VBG pH (7.32-7.43) VBG pCO2 mmHg VBG pO2 mmHg VBG HCO3 (22-26) mmol/L VBG O2 Saturation % VBG Base Excess mmol/L Sodium 140 (135-145) mmol/L Potassium 3.8 (3.3-5.1) mmol/L Chloride 99 (96-108) mmol/L Carbon Dioxide 30 H (22-29) mmol/L Anion Gap 15 (12-20) BUN 13 (9-16) mg/dL Creatinine 0.67 (0.5-1.4) mg/dL Estim Creat Clear Calc 71.3 Estimated GFR > 60 POC Glucose (60-115) mg/dL Random Glucose 195 H (60-115) mg/dL Lactic Acid 1.3 (0.5-2.0) mmol/L Calcium 10.1 D (8.4-10.2) mg/dL Total Bilirubin 0.9 (0.0-1.0) mg/dL Direct Bilirubin 0.5 (0.0-0.5) mg/dL AST 31 (5-31) U/L ALT 11 (0-31) U/L Alkaline Phosphatase 55 (39-117) U/L Troponin I High Sens < 2.7 D (<3.5-17.0) ng/L C-Reactive Protein 0.59 H (< or = 0.50) mg/dL NT-Pro-B Natriuret Pep 417.9 H (<300) pg/mL Total Protein 8.3 H (6.5-8.0) g/dL Albumin 4.4 (3.5-5.0) g/dL Lipase 7 L (8-78) U/L Urine Color Urine Appearance Urine pH (5.0-9.0) Ur Specific [place] (1.005-1.025) Urine Protein (Neg-Trace) mg/dL Urine Glucose (UA) (Negative) mg/dL Urine Ketones (Negative) mg/dL Urine Blood (Negative) Urine Nitrite (Negative) Ur Leukocyte Esterase (Negative) Urine RBC (0-2) /HPF Urine WBC (0-5) /HPF Ur Squamous Epith Cells (0-2) /HPF Urine Bacteria (None Seen) Hyaline Casts (0-2) /LPF COVID-19 (INDIA) Negative (Negative) COVID-19 Clin Com See Note Influenza Type A (KARINA) Negative (Negative) Influenza Type B (KARINA) Negative (Negative) Influenza A & B Note See Note Blood Type Antibody Screen 02/04/25 02/04/25 02/04/25 Range/Units 16:59 17:53 18:02 WBC (4.8-10.8) X10*3/uL RBC (4.20-5.50) X10*6/uL Hgb (12.0-16.0) g/dl Hct (37.0-47.0) % MCV (80.0-98.0) fL MCH (27.0-33.0) pg MCHC (31.0-35.0) g/dl RDW (11.0-16.0) % Plt Count (160-400) X10*3/uL MPV (9.4-12.3) fL Immature Gran % (Auto) (0.0-0.4) % Neut % (Auto) (45-73) % Lymph % (Auto) (20-40) % [place] % (Auto) (2-11) % Eos % (Auto) (0-4) % Baso % (Auto) (0-2) % Lymph # (Auto) (1.2-4.9) X10*3/uL [place] # (Auto) (0.1-1.2) X10*3/uL Eos # (Auto) (0.0-0.4) X10*3/uL Baso # (Auto) (0.0-0.2) X10*3/uL Abs Immat Gran (auto) (0.00-0.03) X10*3/uL Absolute Neuts (auto) (2.0-8.3) x10*3/uL Absolute Nucleated RBC (0.0-0.012) X10*3/uL Nucleated RBC % (auto) (0.0-0.2) /100WBC ESR (0-20) MM/HR PT (10.9-12.4) SEC INR (0.9-1.1) APTT (26.7-34.1) SEC VBG pH 7.52 H (7.32-7.43) VBG pCO2 42 mmHg VBG pO2 42 mmHg VBG HCO3 35 H (22-26) mmol/L VBG O2 Saturation 62.0 % VBG Base Excess 11.2 mmol/L Sodium (135-145) mmol/L Potassium (3.3-5.1) mmol/L Chloride (96-108) mmol/L Carbon Dioxide (22-29) mmol/L Anion Gap (12-20) BUN (9-16) mg/dL Creatinine (0.5-1.4) mg/dL Estim Creat Clear Calc Estimated GFR POC Glucose (60-115) mg/dL Random Glucose (60-115) mg/dL Lactic Acid (0.5-2.0) mmol/L Calcium (8.4-10.2) mg/dL Total Bilirubin (0.0-1.0) mg/dL Direct Bilirubin (0.0-0.5) mg/dL AST (5-31) U/L ALT (0-31) U/L Alkaline Phosphatase (39-117) U/L Troponin I High Sens (<3.5-17.0) ng/L C-Reactive Protein (< or = 0.50) mg/dL NT-Pro-B Natriuret Pep (<300) pg/mL Total Protein (6.5-8.0) g/dL Albumin (3.5-5.0) g/dL Lipase (8-78) U/L Urine Color Yellow Urine Appearance Clear Urine pH >= 9.0 (5.0-9.0) Ur Specific [place] >= 1.030 H (1.005-1.025) Urine Protein Negative (Neg-Trace) mg/dL Urine Glucose (UA) >=1000 H (Negative) mg/dL Urine Ketones Negative (Negative) mg/dL Urine Blood Trace H (Negative) Urine Nitrite Positive H (Negative) Ur Leukocyte Esterase Moderate (2+) H (Negative) Urine RBC 0-2 (0-2) /HPF Urine WBC >50 H (0-5) /HPF Ur Squamous Epith Cells 0-2 (0-2) /HPF Urine Bacteria 2+ (None Seen) Hyaline Casts 0-2 (0-2) /LPF COVID-19 (INDIA) (Negative) COVID-19 Clin Com Influenza Type A (KARINA) (Negative) Influenza Type B (KARINA) (Negative) Influenza A & B Note Blood Type A Positive Antibody Screen NEGATIVE 02/04/25 02/04/25 Range/Units 18:34 19:06 WBC (4.8-10.8) X10*3/uL RBC (4.20-5.50) X10*6/uL Hgb (12.0-16.0) g/dl Hct (37.0-47.0) % MCV (80.0-98.0) fL MCH (27.0-33.0) pg MCHC (31.0-35.0) g/dl RDW (11.0-16.0) % Plt Count (160-400) X10*3/uL MPV (9.4-12.3) fL Immature Gran % (Auto) (0.0-0.4) % Neut % (Auto) (45-73) % Lymph % (Auto) (20-40) % [place] % (Auto) (2-11) % Eos % (Auto) (0-4) % Baso % (Auto) (0-2) % Lymph # (Auto) (1.2-4.9) X10*3/uL [place] # (Auto) (0.1-1.2) X10*3/uL Eos # (Auto) (0.0-0.4) X10*3/uL Baso # (Auto) (0.0-0.2) X10*3/uL Abs Immat Gran (auto) (0.00-0.03) X10*3/uL Absolute Neuts (auto) (2.0-8.3) x10*3/uL Absolute Nucleated RBC (0.0-0.012) X10*3/uL Nucleated RBC % (auto) (0.0-0.2) /100WBC ESR (0-20) MM/HR PT (10.9-12.4) SEC INR (0.9-1.1) APTT (26.7-34.1) SEC VBG pH (7.32-7.43) VBG pCO2 mmHg VBG pO2 mmHg VBG HCO3 (22-26) mmol/L VBG O2 Saturation % VBG Base Excess mmol/L Sodium (135-145) mmol/L Potassium (3.3-5.1) mmol/L Chloride (96-108) mmol/L Carbon Dioxide (22-29) mmol/L Anion Gap (12-20) BUN (9-16) mg/dL Creatinine (0.5-1.4) mg/dL Estim Creat Clear Calc Estimated GFR POC Glucose 79 77 (60-115) mg/dL Random Glucose (60-115) mg/dL Lactic Acid (0.5-2.0) mmol/L Calcium (8.4-10.2) mg/dL Total Bilirubin (0.0-1.0) mg/dL Direct Bilirubin (0.0-0.5) mg/dL AST (5-31) U/L ALT (0-31) U/L Alkaline Phosphatase (39-117) U/L Troponin I High Sens (<3.5-17.0) ng/L C-Reactive Protein (< or = 0.50) mg/dL NT-Pro-B Natriuret Pep (<300) pg/mL Total Protein (6.5-8.0) g/dL Albumin (3.5-5.0) g/dL Lipase (8-78) U/L Urine Color Urine Appearance Urine pH (5.0-9.0) Ur Specific [place] (1.005-1.025) Urine Protein (Neg-Trace) mg/dL Urine Glucose (UA) (Negative) mg/dL Urine Ketones (Negative) mg/dL Urine Blood (Negative) Urine Nitrite (Negative) Ur Leukocyte Esterase (Negative) Urine RBC (0-2) /HPF Urine WBC (0-5) /HPF Ur Squamous Epith Cells (0-2) /HPF Urine Bacteria (None Seen) Hyaline Casts (0-2) /LPF COVID-19 (INDIA) (Negative) COVID-19 Clin Com Influenza Type A (KARINA) (Negative) Influenza Type B (KARINA) (Negative) Influenza A & B Note Blood Type Antibody Screen Independent Interpretation I performed an independent interpretation of an: EKG and Plain X-Ray Interpretation: My interpretation of the patient's one-view chest x-ray is as follows: No infiltrates, free air under the right diaphragm My independent interpretation of the patient's left foot x-ray is as follows: Erosion of the tip of the distal phalanx of the great toe consistent with osteomyelitis. My independent interpretation of the patient's 12 EKG done 02/04/2025 at 17:22 hours is as follows: There is significant artifact which makes the EKG difficult to evaluate. Normal sinus rhythm, OK interval unable to be determined secondary to artifact, QRS duration prolonged 100 milliseconds, QTC interval normal 472 milliseconds, no ST segment elevation, no ST segment depression, inverted T-waves V1, V2 and V3 . Compared to an EKG dated 11/11/2024 at 16:20 hours, inverted T-waves V1 and V2 are old. Radiology Impression Discussion of test interpretation with radiology: I have reviewed the radiologist's reading. Radiologist Impression: XR chest 1V IMPRESSION: No pneumoperitoneum. Concerning for perforated viscus viscera. Discussed with the emergency nurse practitioner at 3:50 PM on February 04, 2025. Electronically signed by: Nate Stewart MD 02/04/2025 03:[address] abdomen pelvis w IV con IMPRESSION: No acute findings. No evidence of free air. Slightly distended fluid-filled colon superior and lateral to the right lobe of the liver accounting for chest x-ray finding. Question mild colonic ileus and constipation. Cirrhotic appearing liver, mild splenomegaly and evidence of portal hypertension. Multiple low-attenuation splenic lesions largest measuring 1.4 cm. This appears unchanged from previous exams and may be benign. This can be further characterized with MRI if clinically warranted. Stable 3.2 x 3.8 cm low-attenuation lesion in the uterus. 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 This could be further evaluated with pelvic MRI if clinically warranted. Electronically signed by: Gena Miranda MD 02/04/2025 05:22 PM EDT XR foot LT min 3V IMPRESSION: Partially limited examination. 1. No obvious displaced acute fracture or dislocation. 2. Abnormal finding in the distal aspect of first distal phalanx, concerning for osteomyelitis in appropriate clinical setting. Electronically signed by: Lena Edwards MD 02/04/2025 04:04 PM External Record Review External record reviewed: Inpatient record Chronic Conditions Patient?s care impacted by: Diabetes Critical Care Time Critical Care Time Critical Care Time: Yes Total Critical Care Time: 45 Attestation: Critical Care: The patient was critically ill with a high probability of imminent or life threatening deterioration. I spent greater than 30 minutes of discontinuous time evaluating the patient,delivering critical care at the bedside, discussing and evaluating pertinent data with consultants. Critical care time does not include time spent performing separately billable procedures or teaching. Total time spent performing critical care was 45 minutes. Discharge Plan Discharge Clinical Impression: Osteomyelitis of great toe of left foot, Cellulitis of foot, left, Urinary tract infection Abdominal pain Qualifiers: Abdominal location: upper abdomen, unspecified Qualified Code(s): R10.10 - Upper abdominal pain, unspecified Patient Disposition: Admitted As Inpatient Interventions: Admission Worksheet (ED) Last Done: 02/04/25 20:22 Discharge Date/Time: 02/04/25 21:17
[2025-02-04 15:56] LABS: Anion Gap 15 (12-20); Blood Urea Nitrogen 13 mg/dL (9-16); Calcium 10.1 mg/dL (8.4-10.2); Carbon Dioxide 30 mmol/L (22-29); Chloride 99 mmol/L (96-108); Creatinine Clr Calc Pharmacy 71.3; Estimated Glomerular Filt Rate > 60; Potassium 3.8 mmol/L (3.3-5.1); Sodium 140 mmol/L (135-145)
[2025-02-04 16:00] VITALS: BP 119/37; PULSE 72; RESP 23; O2SAT 100
[2025-02-04 16:06] LABS: NT Pro B Type Natriuretic Pept 417.9 pg/mL (<300)
[2025-02-04] MEDS: iohexoL 350 MG/ML 100 ML INFUS..BTL IV (16:41)
[2025-02-04 16:48] LABS: Alanine Aminotransferase 11 U/L (0-31); Albumin Level 4.4 g/dL (3.5-5.0); Alkaline Phosphatase 55 U/L (39-117); Aspartate Amino Transferase 31 U/L (5-31); Lipase 7 U/L (8-78); Total Protein 8.3 g/dL (6.5-8.0)
[2025-02-04] MEDS: 0.9 % Sodium Chloride 1,769.01 ML 1769.01 ML IV (16:48)
--- NOTE | 2025-02-04 17:05 | ECG_ITS ---
Test Reason : CHEST PAIN Blood Pressure : */* mmHG Vent. Rate : 66 BPM Atrial Rate : * BPM P-R Int : * ms QRS Dur : 102 ms QT Int : 446 ms P-R-T Axes : * 38 58 degrees QTcB Int : 467 ms Normal sinus rhythm ST & T wave abnormality, consider anterior ischemia Abnormal ECG When compared with ECG of 11-Nov-2024 16:20, T wave inversion more evident in Anterior leads Referred By: Doe Reed Electronically Signed By: TEZ SOTO
[2025-02-04 17:10] LABS: INTERNATIONAL NORM RATIO 1.2 (0.9-1.1); Prothrombin Time 13.5 SEC (10.9-12.4)
[2025-02-04 17:12] LABS: Partial Thromboplastin Time 29.1 SEC (26.7-34.1)
[2025-02-04 17:18] LABS: COVID-19 Test Negative (Negative); IDNOW Serial# 55D5AD1C; IDNOW Serial# 58CA691E; Influenza B2 Negative (Negative)
[2025-02-04 17:20] LABS: VBG HCO3 35 mmol/L (22-26); VBG O2 % Saturation 62.0 %
[2025-02-04 17:21] LABS: Venous Blood Gas Refer to POC result
--- NOTE | 2025-02-04 17:21 | PC.NURSE ---
This RN verbally discussed pt with MD provider, as he ordered sepsis orders, at this time provider is not going to call sepsis and verbalized he just wanted to fluid bolus at this time, primary RN aware.
[2025-02-04 17:23] LABS: Troponin-I High Sensitivity < 2.7 ng/L (<3.5-17.0)
--- NOTE | 2025-02-04 17:31 | PM.CNGS ---
History of Present Illness Consult details Consult date: 02/04/25 Narrative: 64 year female with multiple medical problems including coronary artery disease, obstructive sleep apnea and asthma hypertension, diabetes, chronic kidney disease, obesity, sent to the ER by her visiting nurse because of a left big toe infection. The patient's daughter says that she seemed to have had this infection on the big toe for about 2 weeks now. She was being cared for by a nurse with a dressing changes she had been on antibiotics. However, the seems to be been worsening. She was seen by her visiting nurse today and she was sent to the ER. She does describe some pain on the big toe. She denies trauma to the area. She complained of a cough as well so a chest x-ray was done which showed question of free air next to the liver on the right side. Surgery was therefore consulted. The patient describes pain on the lower abdomen which is chronic. She says that she gets this whenever she has a urinary tract infection. She has had good oral intake. She has had good bowel movements. She has had no nausea or vomiting. She has had no fever. Review of Systems Constitutional: Constitutional: Denies chills and Denies fever(s) Cardiovascular: Cardiovascular: Denies chest pain, Denies dyspnea and Reports dyspnea on exertion Respiratory: Respiratory: Reports cough, Denies dyspnea and Reports dyspnea on exertion Gastrointestinal: Gastrointestinal: Denies hematochezia and Denies change in bowel habits Genitourinary: Genitourinary: Denies hematuria Musculoskeletal: Musculoskeletal: Denies back pain and Denies limited range of motion Neurologic: Denies focal weakness and Denies convulsions Psychiatric: Psychiatric: Denies depression and Denies mood swings [facility] Past Medical History Medical History Toe ulcer due to DM Abnormal CT scan, gastrointestinal tract Elevated troponin Cardiomyopathy CAD (coronary artery disease) Dyspnea Asthma-COPD overlap syndrome Alcohol use History of methadone use Personal history of nicotine dependence Asthma Obesity (BMI 30-39.9) GERD (gastroesophageal reflux disease) Cirrhosis Vitamin D deficiency Hypertension Dyslipidemia Non-toxic multinodular goiter Osteoporosis Diabetic 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 with type 2 diabetes mellitus senior living (current) use of insulin Diabetes type 2, uncontrolled Family History Family History Father Esophageal cancer Mother Diabetes mellitus HTN (hypertension) Surgical History Surgical History Status post biopsy of thyroid gland History of colonoscopy (~2016) Hx of cataract extraction History of esophagogastroduodenoscopy (EGD) (~2020) Hx of cardiac cath (~12/2015) Hx of cholecystectomy (~1980) History of bladder surgery (~06/2019) Social History Social History Household Members: Spouse Housing: Apartment Do you presently have visiting nurse or other home services: Yes ([employer] [facility].) Alcohol intake: former Patient Tobacco Use Status: Former Tobacco user Tobacco use type: Cigarette Years Smoked: Onset 27, 2ppd x 24yrs, 48pyh, quit 11/2012 Smoked in Last 30 Days: No Use of substances other than those prescribed or required for medical reasons: No Currently Displaying Signs/Symptoms of Drug Intoxication Withdrawal: No Have you been hit, kicked, punched, or otherwise hurt by someone within the past year? If so, by whom?: No Do you feel safe in your current relationship?: Yes Is there a partner from a previous relationship who is making you feel unsafe now?: No Are you made to feel afraid or neglected: No Advance Directives: Yes Advance Directives on File: Yes Advance Directives Date on File: 02/28/21 Do you have a plan to hurt others: No Plan Recently lost weight without trying: No How much weight loss: Not applicable Eating poorly because of decreased appetite: No Nutrition screen score: 0 Nutrition Risks: No Nutritional Risk Patient : No : No Poor oral hygiene: No service: No Meds Allergies Allergy/AdvReac Type Severity Reaction Status Date / Time cornflower (Cornflower) Allergy Unknown ITCHY Verified 02/04/25 15:23 EYES/HIVES peach (PEACH) Allergy Unknown NATURAL Verified 02/04/25 15:23 FRUIT - MOUTH ITCHES cornell (cherries) Allergy Unknown Verified 02/04/25 15:23 morphine Allergy Itching Verified 02/04/25 15:23 apples Allergy Unknown Unknown Uncoded 02/04/25 15:23 peanut Allergy Unknown Unknown Uncoded 02/04/25 15:23 Active Medications: Current Medications Vancomycin HCl 1,500 mg/ (Sodium Chloride) 500 mls @ 333.333 mls/hr IV ONCE ONE Stop: 02/04/25 17:49 Last Admin: 02/04/25 17:01 Dose: 333.33 mls/hr Sodium Chloride (Ns) 1,769.01 mls @ 1,769.01 mls/hr 30 ml/kg infuse over 1 hr (1769.01 ml) IV .Q1H STA Stop: 02/04/25 17:50 Last Admin: 02/04/25 16:48 Dose: 1,769.01 mls/hr Home Medications ?Medication ?Instructions ?Recorded ?Confirmed ?Last Taken ?Type lancets 28 gauge (FreeStyle #100 ea 03/16/20 12/18/24 Unknown History Lancets) sertraline 50 mg tablet (Zoloft) 50 mg PO DAILY 03/16/20 02/04/25 02/04/25 History pantoprazole 20 mg tablet,delayed 20 mg PO BID@0630,1630 04/28/21 02/04/25 02/04/25 History release blood pressure test kit-large #1 ea 12/01/21 12/18/24 Unknown History flash glucose scanning reader 12/01/21 12/18/24 Unknown History (FreeStyle [place]isha 2 [place]) flash glucose sensor (FreeStyle 12/01/21 12/18/24 Unknown History Lakeisha 2 Sensor kit) losartan 25 mg tablet 25 mg PO DAILY 12/01/21 02/04/25 02/04/25 History lancets 33 gauge (TRUEplus Lancets) #100 ea 04/20/22 12/18/24 Unknown History pen needle, diabetic 32 gauge x #50 ea 04/20/22 12/18/24 Unknown History (BD Ultra-Fine Debbie Pen Needle) mirabegron 25 mg tablet,extended 25 mg PO DAILY 02/15/23 02/04/25 02/04/25 History release 24 hr (Myrbetriq) Oxygen Home Use 06/11/23 12/18/24 Unknown History nebulizers 06/11/23 12/18/24 Unknown History ferrous sulfate 325 mg (65 mg 325 mg PO MOWEFR 08/09/23 02/04/25 02/04/25 History iron) tablet (FeroSul) atorvastatin 40 mg tablet 40 mg PO BEDTIME 11/11/24 02/04/25 02/03/25 History cetirizine 10 mg tablet 10 mg PO DAILY 11/11/24 02/04/25 02/04/25 History fenofibrate micronized 134 mg 134 mg PO BEDTIME 11/11/24 02/04/25 02/03/25 History capsule folic acid 1 mg tablet 1 mg PO DAILY 11/11/24 02/04/25 02/04/25 History linaclotide 72 mcg capsule 72 mcg PO DAILY 11/11/24 02/04/25 02/04/25 History (Linzess) naltrexone 50 mg tablet 50 mg PO DAILY 11/11/24 02/04/25 02/04/25 History thiamine HCl (vitamin B1) 100 mg 100 mg PO DAILY 11/11/24 02/04/25 02/04/25 History tablet calcium carbonate (Oyster Shell 500 mg PO BID 02/04/25 02/04/25 02/04/25 History Calcium 500) cholecalciferol (vitamin D3) 50 50 mcg PO DAILY 02/04/25 02/04/25 02/04/25 History mcg (2,000 unit) capsule (Vitamin D3) empagliflozin 10 mg tablet 10 mg PO DAILY 02/04/25 02/04/25 02/04/25 History (Jardiance) gabapentin 300 mg capsule 300 mg PO BEDTIME 02/04/25 02/04/25 02/03/25 History insulin glargine 100 unit/mL (3 30 unit subcut BEDTIME 02/04/25 02/04/25 02/03/25 History mL) subcutaneous pen (Lantus Solostar U-100 Insulin) torsemide 10 mg tablet 10 mg PO DAILY 02/04/25 02/04/25 02/04/25 History trazodone 100 mg tablet 100 mg PO BEDTIME 02/04/25 02/04/25 02/03/25 History Physical Exam Vital Signs: Vital Signs: Last Vital Signs Temp 98 F 02/04/25 15:11 Pulse 72 02/04/25 16:00 Resp 23 H 02/04/25 16:00 BP 119/37 L 02/04/25 16:00 Pulse Ox 100 02/04/25 16:00 O2 Del Method Nasal Cannula 02/04/25 16:00 O2 Flow Rate 2 02/04/25 16:00 Oxygen Flow Rate 2 02/04/25 15:11 BMI result Body Mass Index 22.3 Const: Other: She actually looks comfortable although a little anxious General: comfortable and no acute distress Orientation/consciousness: patient oriented x3 Neck: Neck: Yes no lymphadenopathy Resp: Auscultation: clear to auscultation bilaterally Cardio: Rhythm: regular rhythm GI: Other: Mild tenderness in the suprapubic area Palpation (GI): Soft to palpation, nontender and no guarding Neuro: General: patient oriented x3 Extrem: Other: The left big toe has a diffuse ulcerating area, with significant discoloration, some discharge, superficial necrosis of the skin Results Labs 02/07/25 06:33 02/07/25 06:33 Labs: Abnormal lab results 02/04/25 02/04/25 02/04/25 Range/Units 15:38 16:45 16:59 RBC 3.83 L (4.20-5.50) X10*6/uL Hgb 11.5 L (12.0-16.0) g/dl Hct 35.0 L (37.0-47.0) % ESR 72 H (0-20) MM/HR PT 13.5 H (10.9-12.4) SEC INR 1.2 H (0.9-1.1) VBG pH 7.52 H (7.32-7.43) VBG HCO3 35 H (22-26) mmol/L Carbon Dioxide 30 H (22-29) mmol/L Random Glucose 195 H (60-115) mg/dL C-Reactive Protein 0.59 H (< or = 0.50) mg/dL NT-Pro-B Natriuret Pep 417.9 H (<300) pg/mL Total Protein 8.3 H (6.5-8.0) g/dL Lipase 7 L (8-78) U/L Short CBC 02/04/25 Range/Units 15:38 WBC 8.2 (4.8-10.8) X10*3/uL Hgb 11.5 L (12.0-16.0) g/dl Hct 35.0 L (37.0-47.0) % Plt Count 235 (160-400) X10*3/uL BMP 02/04/25 15:38 Sodium 140 Potassium 3.8 Chloride 99 Carbon Dioxide 30 H BUN 13 Creatinine 0.67 Calcium 10.1 D Liver Function 02/04/25 Range/Units 15:38 Total Bilirubin 0.9 (0.0-1.0) mg/dL Direct Bilirubin 0.5 (0.0-0.5) mg/dL AST 31 (5-31) U/L ALT 11 (0-31) U/L Alkaline Phosphatase 55 (39-117) U/L Albumin 4.4 (3.5-5.0) g/dL All other labs normal. Assessment and Plan (1) Abnormal CT scan, gastrointestinal tract: Status: Acute She had a chest x-ray done her cuff in the ER and this suggested free air to the right of the liver. 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 This does not appear to be free air. Abdominal exam is very benign. She did not have any significant tenderness.. She actually looks comfortable. She does not have leukocytosis nor any signs of sepsis At this time, she does not require surgical intervention for this abdominal findings. (2) Toe ulcer due to DM: Status: Acute She has this severe ulcer of the left big toe, with redness, induration, and discharge. She likely has osteomyelitis as well. Further imaging studies have been ordered . She may require amputation of the this has big toe at some point. We will follow him closely. As per the emergency room physician, she has been admitted to the hospitalist service because of this big toe infection in the left with diabetes Procedures Date of Service Date of Service: 02/08/25
[2025-02-04 18:03] LABS: Appearance Urine Clear; Glucose Urine UA >=1000 mg/dL (Negative); PH >= 9.0 (5.0-9.0); Specific Gravity - Urine >= 1.030 (1.005-1.025); UMIC TRIGGER UACC YES
[2025-02-04 18:05] LABS: UACC Culture Trigger YES
[2025-02-04 18:36] VITALS: BP 150/59; PULSE 71; RESP 16; TEMP 36.9; O2SAT 100
[2025-02-04 18:39] LABS: Glucose, Whole Blood 79 mg/dL (60-115)
--- NOTE | 2025-02-04 19:00 | PC.NURSE ---
Pt c/o hypoglycemia per glucose monitor. POC shows 77, MD aware. Pt given orange juice, apple juice, and sandwich. Care ongoing.
[2025-02-04 19:12] LABS: Glucose, Whole Blood 77 mg/dL (60-115)
--- NOTE | 2025-02-04 19:19 | PM.IMHP ---
History of Present Illness Date of Service: 02/04/25 Attending physician on admission: Gerri Garibay Chief Complaint: Left toe pain manager costing used for interview Pt is a 64-year-old Bahamian-speaking female with a history of coronary artery disease, cardiomyopathy/ HFrEF, asthma/COPD on home O2, GERD, cirrhosis, alcohol use disorder states last drink was in September 2024, history of methadone use, GERD hypertension, dyslipidemia, osteoporosis,insulin dependent diabetes with CGM with diabetic neuropathy was BIBA with complaints of L big toe pain and swelling along with possible UTI and constipation. Pt states son was using a brush cutter at home managing pt's toe nails and skin growths that led to current symptms that started back on January 14. Pt was started on ABX as an outpatient and completed regimen but infection persisted. Pt does not routinely see a bilingual loan processor noting she is a diabetic. Pt was evaluated via CT abd for noted constipaton with abdominal discomfort and chest x-ray that noted free air under the diaphragm. CT of the abdomen and pelvis was completed and after review by Dr. Bowser has no evidence of acute abdomen or free air patient does not have a perforated viscus.. Dr. Bowser wanted pt admitted for ABX and surgical consult for infected L big toe with indications for OM. Pt also has evidence of UTI via UA. Patient was started on vancomycin and Zosyn in the emergency department. Lactic acid normal. Patient did receive IV fluid resuscitation based on sepsis protocol, likely does not meet criteria as patient has no leukocytosis and is not hypotensive, tachycardic or hypoxic noting patient is normally on oxygen at home. ESR and CRP are both elevated. Blood gas 7.52, 42, 42, 35. BNP 417. Troponin flat. COVID and influenza were negative. Patient received Dilaudid for pain. Review of Systems Review of Systems: Patient currently denies any chest pain, is normally short of breath especially with exertion but wears oxygen continuously, denies any true abdominal pain at the time of exam, nausea, vomiting or fever. Patient does report 6/10 pain in the left big toe. Patient also reports mild low back pain and discomfort in the sacral area. Patient denies any recent falls. 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 Diabetes type 2, uncontrolled Cognitive capacity: Alert and orientated x3 Family History Father Esophageal cancer Mother Diabetes mellitus HTN (hypertension) Surgical History Status post biopsy of thyroid gland History of colonoscopy (~2016) Hx of cataract extraction History of esophagogastroduodenoscopy (EGD) (~2020) Hx of cardiac cath (~12/2015) Hx of cholecystectomy (~1980) History of bladder surgery (~06/2019) Social History Household Members: Spouse Housing: Apartment Do you presently have visiting nurse or other home services: No Alcohol intake: former Patient Tobacco Use Status: Former Tobacco user Tobacco use type: Cigarette Years Smoked: Onset 27, 2ppd x 24yrs, 48pyh, quit 11/2012 Smoked in Last 30 Days: No Use of substances other than those prescribed or required for medical reasons: No Advance Directives: Yes Advance Directives on File: Yes Advance Directives Date on File: 02/28/21 Do you have a plan to hurt others: No Plan service: No Meds Allergies Allergy/AdvReac Type Severity Reaction Status Date / Time cornflower (Cornflower) Allergy Unknown ITCHY Verified 02/04/25 15:23 EYES/HIVES peach (PEACH) Allergy Unknown NATURAL Verified 02/04/25 15:23 FRUIT - MOUTH ITCHES cornell (cherries) Allergy Unknown Verified 02/04/25 15:23 morphine Allergy Itching Verified 02/04/25 15:23 apples Allergy Unknown Unknown Uncoded 02/04/25 15:23 peanut Allergy Unknown Unknown Uncoded 02/04/25 15:23 Active Medications: Current Medications Acetaminophen (Acetaminophen 325 Mg Tablet) 650 mg PO Q6H PRN PRN Reason: Pain, Mild 1-3,fever,headache Albuterol/Ipratropium (Albuterol/Iprat 2.5/0.5mg 3 Ml Ampul.Neb) 3 ml INHALE Q4H PRN PRN Reason: Shortness of Breath/Wheezing Calcium Carbonate (Calcium Carbonate 750 Mg Tab.Chew) 750 mg PO Q4H PRN PRN Reason: Heartburn Dextrose (Dextrose 50 % 25 Gm/50 Ml Syringe) 25 gm IVPUSH Q15M PRN; Protocol PRN Reason: per Hypoglycemia Standing Ord. Enoxaparin Sodium (Enoxaparin Sodium 40 Mg/0.4 Ml Syringe) 40 mg SUBCUT Q24H JONO Glucose (Glucose Gel 15 Gm Gel..Gram.) 15 gm PO Q15M PRN; Protocol PRN Reason: per Hypoglycemia Standing Ord. Piperacillin Sod/Tazobactam (Sod 3.375 gm/ Sodium Chloride) 50 mls @ 100 mls/hr IV Q6H [facility] Insulin Human Lispro (Insulin Lispro 100 Unit/Ml 3 Ml Vial) 0 unit SUBCUT QIDACHS [facility]; Protocol Magnesium Hydroxide (Milk Of Magnesia 30 Ml Oral.Susp) 30 ml PO DAILY PRN PRN Reason: Constipation Melatonin (Melatonin 3 Mg Tablet) 6 mg PO BEDTIME PRN PRN Reason: Insomnia Ondansetron HCl (Ondansetron Hcl 4 Mg/2 Ml Vial) 4 mg IVPUSH Q8H PRN PRN Reason: Nausea and Vomiting Pharmacy Consult (Consult Rx Vancomycin Dosing) 1 each MISCELLANE DAILY PRN PRN Reason: Consult order Polyethylene Glycol (Polyethylene Glycol 3350 17 Gm Powd.Pack) 17 gm PO DAILY PRN PRN Reason: Constipation Senna (Sennosides 8.6 Mg Tablet) 17.2 mg PO BEDTIME [facility] Sodium Chloride (0.9 % Sodium Chloride Flush 3 Ml Syringe) 3 [facility] Medications ?Medication ?Instructions ?Recorded ?Confirmed ?Last Taken ?Type lancets 28 gauge (Laurita #100 ea 03/16/20 12/18/24 Unknown History Lancets) sertraline 50 mg tablet (Zoloft) 50 mg PO DAILY 03/16/20 02/04/25 02/04/25 History pantoprazole 20 mg tablet,delayed 20 mg PO BID@0630,1630 01/20/22 10/29/25 10/29/25 History release blood pressure test kit-large #1 ea 12/01/21 12/18/24 Unknown History flash glucose scanning reader 12/01/21 12/18/24 Unknown History (FreeStyle Lakeisha 2 Liberty) flash glucose sensor (FreeStyle 12/01/21 12/18/24 Unknown History Lakeisha 2 Sensor kit) losartan 25 mg tablet 25 mg PO DAILY 12/01/21 02/04/25 02/04/25 History lancets 33 gauge (TRUEplus Lancets) #100 ea 04/20/22 12/18/24 Unknown History pen needle, diabetic 32 gauge x #50 ea 04/20/22 12/18/24 Unknown History (BD Ultra-Fine Debbie Pen Needle) mirabegron 25 mg tablet,extended 25 mg PO DAILY 02/15/23 02/04/25 02/04/25 History release 24 hr (Myrbetriq) Oxygen Home Use 06/11/23 12/18/24 Unknown History nebulizers 06/11/23 12/18/24 Unknown History ferrous sulfate 325 mg (65 mg 325 mg PO MOWEFR 08/09/23 02/04/25 02/04/25 History iron) tablet (FeroSul) atorvastatin 40 mg tablet 40 mg PO BEDTIME 11/11/24 02/04/25 02/03/25 History cetirizine 10 mg tablet 10 mg PO DAILY 11/11/24 02/04/25 02/04/25 History fenofibrate micronized 134 mg 134 mg PO BEDTIME 11/11/24 02/04/25 02/03/25 History capsule folic acid 1 mg tablet 1 mg PO DAILY 11/11/24 02/04/25 02/04/25 History linaclotide 72 mcg capsule 72 mcg PO DAILY 11/11/24 02/04/25 02/04/25 History (Linzess) naltrexone 50 mg tablet 50 mg PO DAILY 11/11/24 02/04/25 02/04/25 History thiamine HCl (vitamin B1) 100 mg 100 mg PO DAILY 11/11/24 02/04/25 02/04/25 History tablet calcium carbonate (Oyster Shell 500 mg PO BID 02/04/25 02/04/25 02/04/25 History Calcium 500) cholecalciferol (vitamin D3) 50 50 mcg PO DAILY 02/04/25 02/04/25 02/04/25 History mcg (2,000 unit) capsule (Vitamin D3) empagliflozin 10 mg tablet 10 mg PO DAILY 02/04/25 02/04/25 02/04/25 History (Jardiance) gabapentin 300 mg capsule 300 mg PO BEDTIME 02/04/25 02/04/25 02/03/25 History insulin glargine 100 unit/mL (3 30 unit subcut BEDTIME 02/04/25 02/04/25 02/03/25 History mL) subcutaneous pen (Lantus Solostar U-100 Insulin) torsemide 10 mg tablet 10 mg PO DAILY 02/04/25 02/04/25 02/04/25 History trazodone 100 mg tablet 100 mg PO BEDTIME 02/04/25 02/04/25 02/03/25 History Physical Exam Vital Signs and Narrative: Vital Signs: Last Vital Signs Temp 98.4 F 02/04/25 18:36 Pulse 71 02/04/25 18:36 Resp 16 02/04/25 18:36 BP 150/59 H 02/04/25 18:36 Pulse Ox 100 02/04/25 18:36 O2 Del Method Nasal Cannula 02/04/25 18:36 O2 Flow Rate 2 02/04/25 18:36 Oxygen Flow Rate 2 02/04/25 15:11 BMI result Body Mass Index 22.3 Alert and orientated X3, able to give good history using fireproof door assembler. Neuro: CN II-X11 intact, no deficits, visual acuity intact, no obvious defecits EYES: PERRLA, EOM intact sclerae nonicteric, conjunctiva pink ENT: hearing intact, no issues with swallowing, uvula midline, lips moist, nares patent no epistaxis Cardiac: S1 S2 RRR, no murmur, no JVD, no edema in Lower ext Pulmonary: lungs diminished bilaterally Abdominal: BS active in all 4 quadrants, no guarding, tenderness, rebounding MSK: strength 4/5 upper and lower extremities : no CVA tenderness no bladder distension Extremities: no edema in lower extremities, PT and DP pulses palpable +2, left big toe swollen, warm to the touch with opening to the underlying dermis, no obvious drainage Psych: mood stable, judgement and insight fair Results Labs 02/04/25 15:38 02/04/25 15:38 Labs: Laboratory Results - last 24 hr 02/04/25 02/04/25 02/04/25 15:38 16:45 16:50 MCV 91.4 MCH 30.0 MCHC 32.9 RDW 14.1 Plt Count 235 MPV 9.9 Immature Gran % (Auto) 0.2 Neut % (Auto) 65.5 Lymph % (Auto) 28.0 Dickinson % (Auto) 5.4 Eos % (Auto) 0.5 Baso % (Auto) 0.4 Lymph # (Auto) 2.3 Dickinson # (Auto) 0.4 Eos # (Auto) 0.0 Baso # (Auto) 0.0 Abs Immat Gran (auto) 0.02 Absolute Neuts (auto) 5.4 Absolute Nucleated RBC 0.000 Nucleated RBC % (auto) 0.0 ESR 72 H PT 13.5 H INR 1.2 H APTT 29.1 VBG pH VBG pCO2 VBG pO2 VBG HCO3 VBG O2 Saturation VBG Base Excess Anion Gap 15 Estim Creat Clear Calc 71.3 Estimated GFR > 60 POC Glucose Random Glucose 195 H Lactic Acid 1.3 Calcium 10.1 D Total Bilirubin 0.9 Direct Bilirubin 0.5 AST 31 ALT 11 Alkaline Phosphatase 55 Troponin I High Sens < 2.7 D C-Reactive Protein 0.59 H NT-Pro-B Natriuret Pep 417.9 H Total Protein 8.3 H Albumin 4.4 Lipase 7 L Urine Color Urine Appearance Urine pH Ur Specific [place] Urine Protein Urine Glucose (UA) Urine Ketones Urine Blood Urine Nitrite Ur Leukocyte Esterase Urine RBC Urine WBC Ur Squamous Epith Cells Urine Bacteria Hyaline Casts COVID-19 (INDIA) Negative COVID-19 Clin Com See Note Influenza Type A (KARINA) Negative Influenza Type B (KARINA) Negative Influenza A & B Note See Note Blood Type Antibody Screen 02/04/25 02/04/25 02/04/25 16:59 17:53 18:02 MCV MCH MCHC RDW Plt Count MPV Immature Gran % (Auto) Neut % (Auto) Lymph % (Auto) Dickinson % (Auto) Eos % (Auto) Baso % (Auto) Lymph # (Auto) Dickinson # (Auto) Eos # (Auto) Baso # (Auto) Abs Immat Gran (auto) Absolute Neuts (auto) Absolute Nucleated RBC Nucleated RBC % (auto) ESR PT INR APTT VBG pH 7.52 H VBG pCO2 42 VBG pO2 42 VBG HCO3 35 H VBG O2 Saturation 62.0 VBG Base Excess 11.2 Anion Gap Estim Creat Clear Calc Estimated GFR POC Glucose Random Glucose Lactic Acid Calcium Total Bilirubin Direct Bilirubin AST ALT Alkaline Phosphatase Troponin I High Sens C-Reactive Protein NT-Pro-B Natriuret Pep Total Protein Albumin Lipase Urine Color Yellow Urine Appearance Clear Urine pH >= 9.0 Ur Specific [place] >= 1.030 H Urine Protein Negative Urine Glucose (UA) >=1000 H Urine Ketones Negative Urine Blood Trace H Urine Nitrite Positive H Ur Leukocyte Esterase Moderate (2+) H Urine RBC 0-2 Urine WBC >50 H Ur Squamous Epith Cells 0-2 Urine Bacteria 2+ Hyaline Casts 0-2 COVID-19 (INDIA) COVID-19 Clin Com Influenza Type A (KARINA) Influenza Type B (KARINA) Influenza A & B Note Blood Type A Positive Antibody Screen NEGATIVE 02/04/25 02/04/25 18:34 19:06 MCV MCH MCHC RDW Plt Count MPV Immature Gran % (Auto) Neut % (Auto) Lymph % (Auto) Dickinson % (Auto) Eos % (Auto) Baso % (Auto) Lymph # (Auto) Dickinson # (Auto) Eos # (Auto) Baso # (Auto) Abs Immat Gran (auto) Absolute Neuts (auto) Absolute Nucleated RBC Nucleated RBC % (auto) ESR PT INR APTT VBG pH VBG pCO2 VBG pO2 VBG HCO3 VBG O2 Saturation VBG Base Excess Anion Gap Estim Creat Clear Calc Estimated GFR POC Glucose 79 77 Random Glucose Lactic Acid Calcium Total Bilirubin Direct Bilirubin AST ALT Alkaline Phosphatase Troponin I High Sens C-Reactive Protein NT-Pro-B Natriuret Pep Total Protein Albumin Lipase Urine Color Urine Appearance Urine pH Ur Specific [place] Urine Protein Urine Glucose (UA) Urine Ketones Urine Blood Urine Nitrite Ur Leukocyte Esterase Urine RBC Urine WBC Ur Squamous Epith Cells Urine Bacteria Hyaline Casts COVID-19 (INDIA) COVID-19 Clin Com Influenza Type A (KARINA) Influenza Type B (KARINA) Influenza A & B Note Blood Type Antibody Screen ECG Prior ECG tracings: not available for review Imaging Radiologist's Impressions: Impressions Foot X-Ray 02/04/25 15:32 IMPRESSION: Partially limited examination. 1. No obvious displaced acute fracture or dislocation. 2. Abnormal finding in the distal aspect of first distal phalanx, concerning for osteomyelitis in appropriate clinical setting. Electronically signed by: Lena Edwards MD 02/04/2025 04:04 PM EDT RP Chest X-Ray 02/04/25 15:35 IMPRESSION: No pneumoperitoneum. Concerning for perforated viscus viscera. Discussed with the emergency nurse practitioner at 3:50 PM on February 04, 2025. Electronically signed by: Nate Stewart MD 02/04/2025 03:52 PM EDT RP Abdomen/Pelvis CT 02/04/25 16:33 IMPRESSION: No acute findings. No evidence of free air. Slightly distended fluid-filled colon superior and lateral to the right lobe of the liver accounting for chest x-ray finding. Question mild colonic ileus and constipation. Cirrhotic appearing liver, mild splenomegaly and evidence of portal hypertension. Multiple low-attenuation splenic lesions largest measuring 1.4 cm. This appears unchanged from previous exams and may be benign. This can be further characterized with MRI if clinically warranted. Stable 3.2 x 3.8 cm low-attenuation lesion in the uterus. 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 This could be further evaluated with pelvic MRI if clinically warranted. Electronically signed by: Gena Miranda MD 02/04/2025 05:22 PM EDT RP Assessment and Plan (1) Toe ulcer due to DM: Qualifiers: Diabetes mellitus type: type 2 Laterality: left Non-pressure ulcer stage: unspecified non-pressure ulcer stage Qualified Code(s): E11.621 - Type 2 diabetes mellitus with foot ulcer; L97.529 - Non-pressure chronic ulcer of other part of left foot with unspecified severity Status: Acute (2) Acute UTI: Status: Acute Plan Pt is a 64-year-old Bahamian-speaking female with a history of coronary artery disease, cardiomyopathy/ HFrEF, asthma/COPD on home O2, GERD, cirrhosis, alcohol use disorder states last drink was in September 2024, history of methadone use, GERD hypertension, dyslipidemia, osteoporosis,insulin dependent diabetes with CGM with diabetic neuropathy, cholecystectomy was BIBA with complaints of L big toe pain and swelling along with possible UTI and constipation. Patient being admitted for IV antibiotics and general surgery consultation. Patient's son was providing foot care and nail care at home likely resulting in infection, education provided and patient understands that she would need to follow with a bilingual loan processor moving forward for diabetic foot care. Left big toe OM Patient does not meet criteria for sepsis on admission Patient is started on vancomycin and Zosyn ID consulted General surgery consulted Wound care consulted Education provided that patient must only receive foot care from a bilingual loan processor due to her diabetes and that patient has automatic coverage with her insurance because she is diabetic Patient could benefit from diabetic shoes, likely can be obtained from her PCP as an outpatient UTI UA positive for evidence of UTI with trace heme, positive nitrites, moderate leukocyte esterase, greater than 50 WBCs, and +2 bacteria Follow urine culture Patient on vancomycin and Zosyn currently for left big toe osteomyelitis which will cover UTI [place], monitor for retention Constipation No acute abdomen per surgery bowel regimen ordered, to include perforated viscus or free air Bowel regimen upgraded to docusate sodium, senna, MiraLax and Dulcolax suppository as needed IDDM II Sliding scale insulin Lantus 30 units at bedtime, we will order once med rec completed Diabetic diet Alcohol use Disorder/ Cirrhosis with mild splenomagaly and portal HTN Patient states last alcohol drink was September 2024, no indication for withdrawal, CIWA or phenobarbital on admission LFTs currently stable Patient educated that she should continue to follow with GI as an outpatient Patient currently on naltrexone 50 mg daily Thiamine and folic acid continue HFrEF BNP 417 Last echo November 2024 notes an EF of 42% with inferior septal wall and basal inferior segment hypokinesis, no evidence of pulmonary hypertension or valve disorder No indication currently to repeat ecchymoses patient presents euvolemic Continue losartan and torsemide Low-salt diet Daily weights, fluid allowance 1500, monitor eyes and nose HLD Continue statin as LFTs are stable Continue fenofibrate Cardiac diet COPD without exacerbation No evidence of pneumonia, pleural effusion or pulmonary edema on chest x-ray Continue O2 at baseline 2 L nasal cannula Supportive care as needed to include duo nebs and antitussives GERD Omeprazole currently Avoid food triggers Lipoleiomyoma Chronic finding Patient should continue to follow with her apartment assistant manager No plans for hysterectomy per patient DVT prophylaxis: Lovenox Med rec completed Full code status Patient will require at least 2 midnight stays for IV antibiotics for left big toe osteomyelitis, expert consultation with General surgery and Infectious Disease and management of patient's chronic comorbidities while in inpatient. Quality Stroke Does the patient have a stroke diagnosis?: No Reason for No Anti-thrombotic by Day Two: N/A - Med Ordered VTE Prior VTE?: No VTE Risk Level:: Medical - moderate - high VTE Device Contraindication: N/A - Device Ordered VTE Drug Contraindication: N/A - Med Ordered
--- NOTE | 2025-02-04 20:11 | PHA.MEDREC ---
Addendum entered by Kori De Leon RPh 02/04/25 20:22: Reviewed by [facility] Original Note: Pharmacy Consult ? Medication Reconciliation Pharmacy has completed the medication reconciliation. Spoke to patient through speech language specialist service to confirm med list. Patient had a medBox list from [facility] pharmacy. Patient confirmed Lnatus Solostar 30 units at bed time if her sugar is high. Utilized claims and medBox list to confirm med list. Patient state she had all her morning medications today.
--- OUTSIDE RECORDS SUMMARY | 2025-02-04 20:17 | XMS_ITS | Encounter Summary ---
Author Organization [employer] Address [address] [place] [address] Care Team Providers Care Skiver Machine Operator Name Role Phone Shireen Stout MD Primary Care Pro vider Reason for Visit * Reason Onset Date Comments Referral 01/22/2025 Encounter Details Date Type Department Care Team ([facility] st Contact Info) Description 01/22/2025 Telephone [facility] [address] [place] [address] Shireen Stout MD [address] [place] [address] Referral Social History Tobacco Use Types Packs/Day [...] Tc from Noelle requesting a referral for collections attorney Contact Noelle at [phone] documented in this encounter Plan of Treatment Upcoming Encounters Date Type Department Care Team (Late st Contact Info) Description 02/25/2025 11:15 AM EST Office Visit [facility] [address] [place] [phone] Shireen Stout MD [address] [place] [phone] 03/17/2025 11:00 AM EST Office Visit [facility] [address] [place] [phone] Rhoda Melvin CNM [address] [place] [address] documented as of this encounter Visit Diagnoses Not on filedocumented in this encounter Additional Health Concerns Assessment Noted Time PHQ-9 Depression Total Score: 11 025 9:44 AM EDT documented as of this encounter Care Teams Skiver Machine Operator Relationship Specialty Start Date End Date Shireen Stout MD [address] [place] [address] PCP - General Internal Medicine 09/08/22 documented as of this encounter
--- OUTSIDE RECORDS SUMMARY | 2025-02-04 20:17 | XMS_ITS | Patient Health Record ---
Author Organization [facility] Address [address] [place] [address] Care Team Providers [place] Wellness Coordinator Name Role Phone Víctor Euceda Jr Reason For Referral No Information Plan Of Treatment No Information
--- OUTSIDE RECORDS SUMMARY | 2025-02-04 20:17 | XMS_ITS | Data Portability ---
Author Organization [employer] Address [address] [place] [phone] Care Team Providers Care Crosscutter Rolled Glass Name Role Phone Unavailable OTHER HIM CCA OTHER Assessment Encounter Date Assessment Date Assessment LastModified by Organization Details LastModified Time 09/24/2024 09/24/2024 As noted, we were called to see this patient regarding concerns of confusion. Evaluation in the field was performed by my speed belt sander colleague, as noted above, I provided real-time [...] is to transfer to the ER at [facility]. I called a quick report to the ER there. I discussed that she has a history of cirrhosis. She may need an ammonia level. She will also need CT scanning of the brain and further work up. Impression: acute confusion Plan: 1) transfer to the ER at [facility] Primary care, consider f/u er visit Disposition: to er [email or web address] Not available 09/24/2024 13:06:58 12/04/2024 12/04/2024 I provided real -time medical direction via phone for this encounter and was available for additional phone-based assistance as needed. I have reviewed and agree with the Assessment and Plan as documented by the Database Management System Specialist. Patient given the opportunity to ask questions. Our service contacted for an assessment of: Urinary symptoms As per above, patient with approximately 24 hours of dysuria, frequency. No history of frequent urinary tract infections however recently had one that responded well to cefpodoxime. Denies fever, chills, abdominal pain, back pain, flank pain. Per speed belt sander on the scene, Vital signs are stable [...] None recorded. Lab urinalysis, dipstick 2024 025 [facility], [address] [place] [address], [phone] 11:45:52 Referral None recorded. Procedures None recorded. Surgeries None recorded. Imaging None recorded. Medication Orders levofloxaci n 500 mg tablet 2024 025 [facility], [address] [place] [address], [id number], 05:01:22 levofloxaci n 500 mg tablet 2024 025 [facility], [address] [place] [address], [id number], 05:01:22 Patient TargetsNo targets recorded. Patient InstructionsNo [...] Name and Address Organization Details Recorded Time 30252 Product containin g angiotens in-conver ting enzyme inhibitor (product) medicatio n Not available Not available Not available 09/24/2024 03759 009 SNOMED Not Available [facility] - production 5 11:43:34 20042 cornell allergeni c extract food,medi cation Not available Not available Not available 12/03/2024 03052 1 RxNorm Not Available [facility] - production 5 17:34:23 71695 peanut allergeni c extract food,medi cation Not available Not available Not available 12/03/2024 32678 8 RxNorm Not Available [facility] 17:34:23 Medications Name Sig Start [...] % 2 L/min 170/90 mm[Hg] Not Available [facility] 12:35:39 Date Recorded Respiratory rate Body temperature Body height Body weight Heart rate Oxygen saturation Oxygen saturation in Arterial blood by Pulse oximetry Systolic And Diastolic Provider Name and Address Organization Details Last Updated DateTime 5 14 /min 98.4 [degF] 157.48 cm 81525.8 g 64 /min 95 % 95 % 112/54 mm[Hg] Not Available [facility] 09:17:38 Social History None recorded. Functional Status None recorded. Mental Status None recorded. Family History Nothing Reported. Medical History No medical history recorded. Gynecological HistoryNo gynecological history recorded. Obstetrics History GPAL:G 0 P 0 0 0 0 Past Encounters Encounter ID Performer Location Encounter Start Date Encounter Closed Date Diagnosis/Indication Diagnosis SNOMED-CT Code Diagnosis ICD10 Code Diagnosis IMO Codes Diagnosis Note [id number] RANDOLPH SO MD [address] [phone] 09/24/2024 12:35:35 09/29/2024 14:31:59 Altered mental status 976901461 R41.82 [id number] Bria Shook MD [address] [phone] 12/04/2024 09:09:47 12/05/2024 12:18:07 Urinary system finding [id number] R39.9 [id number] Health Concerns Section Related Observation LastModified by Organization Detai ls LastModified Time None Recorded Concern Status LastModified by Organization Details LastModified Time None Recorded Advance Directives Directive None Recorded Payers Insurance Date Sequence Insurance Name Policy Number Policy Muro Covered Member ID Muro Member ID Guarantor Name 12/04/2024 1 [facility] - DOS ON OR AFTER 2022 - DUAL ELIGIBLE - CARE HOME OPTIONS AND ONE CARE (MEDICARE REPLACEMENT/ADV ANTAGE - HMO) Shireen Tavarez [id number] Shireen Tavarez Notes Date Note Type Note Provider Name and Address Organization Details Recorded Time 09/24/2024 text/html ROS as noted in the HPI HPI: Patient Daughter called as patient fell while at [facility] last Sunday. Fell from seated walker to ground found to have been hypoxic. Daughter concerned as Mom seems off O2Sat at time of call on 02 @1.5LPM + 95%.All imaging at time of fall Negative. No urinary complaints. .................... .................... .................... .................... .................... .................... .................... . [facility] Nurse Triage Notes (Haylie Resendiz): Reason For Request: Fall Chief Complaints: Falls PMH: Asthma, Chronic Kidney Disease, Cirrhosis, Diabetes Mellitus Type 2, Food Allergies, Hypertension PMH Reviewed at 09/24/2024:43 Allergies Reviewed at 09/24/2024:43 Comments: HPI reviewed Food allergies: Apple juice cornell prunus persica, PB flavoring .................... .................... .................... .................... .................... .................... .................... . Database Management System Specialist Note From Ming Mercer: Dispatched to the [...] suppose to be doing. Pt was assessed. [facility] consulted. Pt advised to return to the ED for imaging. Family advised they would drive her as it was only a couple of minutes down the road. Family advised that I could call for an ambulance for her but they advised they would take her now. Red flags discussed. ALL times are approx. .................... .................... .................... .................... .................... .................... .................... . [facility] Consulted: Randolph So .................... .................... .................... .................... .................... .................... .................... . Disposition: Fulfilled Kavitha Retana MD [address] [facility],[address], [place], [phone], ALFRED Gallegos ALINEMICHELLE KNAPP 09/29/2024 10:11:22 12/04/2024 [...] request from initial triage -Maureen Ramirez RN Database Management System Specialist Organization Information for Raoul Cardozo [employer] Legal Name: [facility] Address: [address] [place] [address], Dance Entertainer: Santiago Franz MD CLIA No.: [id number] Database Management System Specialist POC Test Results from Raoul Cardozo - ALS Urine Dipstick (09:17:49) Urine leukocytes: +++VANDANA Urine nitrites: ++NIT Urine urobilinogen: -URO Urine protein: 0.2PRO Urine pH: 5.5pH Urine blood: -BLO Urine specific gravity: 1.005SG Urine ketones: -KET Urine bilirubin: -RADHA Urine glucose: ++GLU Blood Glucose Measurement (09:22:17) Blood Glucose: 257mg/dL .................... .................... .................... .................... .................... .................... .................... . Database Management System Specialist Note From Raoul Cardozo: Patient alert and [...] as ordered without complication, using five rights., [facility] will prescribe more to patient s local pharmacy. Patient reports she has PCP appointment tomorrow. Red flags patient education discussed. Patient and caregiver demonstrating understanding of care and plan. Patient given an opportunity to ask questions. [facility] Lab Orders: urinalysis, dipstick: Performed .................... .................... .................... .................... .................... .................... .................... . [facility] Consulted: Bria Shook .................... .................... .................... .................... .................... .................... .................... . Disposition: Fulfilled Bria Shook MD [address] [facility],[address] [facility], [place], [phone], [employer] 12/04/2024 10:48:59 OBGyn Episode No OBEpisode recorded.
--- OUTSIDE RECORDS SUMMARY | 2025-02-04 20:17 | XMS_ITS | Encounter Summary ---
Author Organization [employer] Address [address] [place] [address] 7t [place] [address] Care Team Providers Care Account Information Clerk Name Role Phone Shireen Stout MD Primary Care Pro vider Reason for Visit * Reason Comments Med Refill Encounter Details Date Type Department Care Team (Late st Contact Info) Description 01/10/2023 Refill [facility] [address] [place], [place] [phone] Tonja Guzmán, DIMAS Pulmonary emphysema, unspecified emphysema [...] Description 02/25/2025 11:15 AM EST Office Visit [facility] [address] [place] [address] Shireen Stout MD 230 [place] [address] 03/17/2025 11:00 AM EST Office Visit [facility] [address] [place] [address] Rhoda Melvin CNM 230 [place] [address] documented as of this encounter Visit Diagnoses Diagnosis Pulmonary emphysema, unspecified emphysema type documented in this encounter Additional Health Concerns Assessment Noted Time PHQ-9 Depression Total Score: 5 12/16/19 23 2:02 PM EDT documented as of this encounter Care Teams Account Information Clerk Relationship Specialty Start Date End Date Shireen Stout MD [address] [place] [phone] PCP - General Internal Medicine 09/08/22 [facility] 09/22/24 12/28/24 documented as of this encounter
--- OUTSIDE RECORDS SUMMARY | 2025-02-04 20:17 | XMS_ITS | Encounter Summary ---
Author Organization [employer] Address [address] [facility] 7t [place] [address] Care Team Providers Care Electrical Engineering Technologist Name Role Phone Shireen Stout MD Primary Care Pro vider Reason for Visit * Reason Comments Med Refill Encounter Details Date Type Department Care Team (Late st Contact Info) Description 01/16/2023 Refill [facility] 230 [place] [address] Tonja Guzmán FNP Social History Tobacco Use [...] Description 02/25/2025 11:15 AM EST Office Visit [facility] [address] [place] [address] Shireen Stout MD [address] [place] [address] 03/17/2025 11:00 AM EST Office Visit [address] [address] Rhoda Melvin CNM [address] [place] [address] documented as of this encounter Visit Diagnoses Not on filedocumented in this encounter Additional Health Concerns Assessment Noted Time PHQ-9 Depression Total Score: 5 12/16/19 23 2:02 PM EDT documented as of this encounter Care Teams Electrical Engineering Technologist Relationship Specialty Start Date End Date Shireen Stout MD [address] [place] [address] [phone] PCP - General Internal Medicine 09/08/22 [facility] 09/22/24 12/28/24 documented as of this encounter
--- OUTSIDE RECORDS SUMMARY | 2025-02-04 20:17 | XMS_ITS | Encounter Summary ---
Author Organization [employer] Address [address] [facility] 7t [place] [address] Care Team Providers Care Predictive Maintenance Specialist Name Role Phone Shireen Stout MD Primary Care Pro vider Reason for Visit * Reason Comments Med Refill Encounter Details Date Type Department Care Team (Late st Contact Info) Description 01/16/[address] [facility] [address] [place], [place] [phone] Shireen Stout MD 230 [place] [address] Social History Tobacco Use Types Packs/Day Years [...] Office Visit [facility] [address] [place] [address] Shireen Stout MD [address] [place] [address] 03/17/2025 11:00 AM EST Office Visit [address] [address] Rhoda Melvin CNM [address] [place] [address] documented as of this encounter Visit Diagnoses Not on filedocumented in this encounter Additional Health Concerns Assessment Noted Time PHQ-9 Depression Total Score: 5 12/16/19 23 2:02 PM EDT documented as of this encounter Care Teams Predictive Maintenance Specialist Relationship Specialty Start Date End Date Shireen Stout MD [address] [place] [address] PCP - General Internal Medicine 09/08/22 [facility] 09/22/24 12/28/24 documented as of this encounter
--- OUTSIDE RECORDS SUMMARY | 2025-02-04 20:17 | XMS_ITS | Encounter Summary ---
Author Organization [employer] Address [address] [facility] 7t [place] [address] Care Team Providers Care Malt Specifications Control Assistant Name Role Phone Shireen Stout MD Primary Care Pro vider Reason for Visit * Reason Comments Med Refill Encounter Details Date Type Department Care Team (Late st Contact Info) Description 01/16/2023 Refill [facility] 505 [place], [place] [phone] Shireen Stout MD 230 [place] [address] Social History Tobacco Use Types Packs/Day Years [...] EST Office Visit [facility] [address] [place] [address] Shireen Stout MD [address] [place] [address] 03/17/2025 11:00 AM EST Office Visit [address] [address] Rhoda Melvin CNM [address] [place] [address] documented as of this encounter Visit Diagnoses Not on filedocumented in this encounter Additional Health Concerns Assessment Noted Time PHQ-9 Depression Total Score: 5 12/16/19 23 2:02 PM EDT documented as of this encounter Care Teams Malt Specifications Control Assistant Relationship Specialty Start Date End Date Shireen Stout MD [address] [place] [address] PCP - General Internal Medicine 09/08/22 [facility] 09/22/24 12/28/24 documented as of this encounter
--- OUTSIDE RECORDS SUMMARY | 2025-02-04 20:17 | XMS_ITS | Encounter Summary ---
Author Organization [employer] Address [address] [facility] 7t [place] [address] Care Team Providers Care Medical Nurse Name Role Phone Shireen Stout MD Primary Care Pro vider Encounter Details Date Type Department Care Team ([facility] st Contact Info) Description 01/08/2025 Telephone [facility] 230 [place], [place] [phone] Shireen Stout MD 230 [place], [place] [phone] Social History Tobacco Use Types Packs/Day Years [...] - 01/08/2025 4:37 PM EDT Tc from [facility] with [facility] requesting status on face to face documents. documented in this encounter Plan of Treatment Upcoming Encounters Date Type Department Care Team (Late st Contact Info) Description 02/25/2025 11:15 AM EST Office Visit [facility] [address] [place] [address] Shireen Stout MD [address] [place] [address] 03/17/2025 11:00 AM EST Office Visit [facility] [address] [place] [address] Rhoda Melvin CNM [address] [place] [address] documented as of this encounter Visit Diagnoses Not on filedocumented in this encounter Additional Health Concerns Assessment Noted Time PHQ-9 Depression Total Score: 11 025 9:44 AM EDT documented as of this encounter Care Teams Medical Nurse Relationship Specialty Start Date End Date Shireen Stout MD [address] [place] [address] PCP - General Internal Medicine 09/08/22 documented as of this encounter
--- OUTSIDE RECORDS SUMMARY | 2025-02-04 20:17 | XMS_ITS | Encounter Summary ---
Author Organization [employer] Address [address] [facility] 7t [place] [address] Care Team Providers Care Donor Support Technician Name Role Phone Shireen Stout MD Primary Care Pro vider Reason for Visit * Reason Comments Med Refill Encounter Details Date Type Department Care Team (Late st Contact Info) Description 08/04/[address] [facility] 230 [place], [place] [phone] Shireen Stout MD 230 [place], [place] [phone] Social History Tobacco Use Types Packs/Day Years [...] the past 12 months, has t he [employer], gas, oil or water company threatened to [...] Description 02/25/2025 11:15 AM EST Office Visit [facility] [address] [place] [address] Shireen Stout MD [address] [place] [address] 03/17/2025 11:00 AM EST Office Visit [facility] [address] [place] [address] Rhoda Melvin CNM [address] [place] [address] documented as of this encounter Visit Diagnoses Not on filedocumented in this encounter Additional Health Concerns Assessment Noted Time PHQ-9 Depression Total Score: 3 03/05/20 24 9:07 AM EST documented as of this encounter Care Teams Donor Support Technician Relationship Specialty Start Date End Date Shireen Stout MD [address] [place] [address] PCP - General Internal Medicine 09/08/22 [facility] 09/22/24 12/28/24 documented as of this encounter
--- OUTSIDE RECORDS SUMMARY | 2025-02-04 20:18 | XMS_ITS | Encounter Summary ---
Author Organization [employer] Address [address] [facility] 7t [place] [address] Care Team Providers Care Benefits Specialist Recruiter Name Role Phone Shireen Stout MD Primary Care Pro vider Encounter Details Date Type Department Care Team (Late st Contact Info) Description 12/13/2024 Orders Only [facility] 230 [place], [place] [phone] Lisa Mccurdy MD 230 [place], [place] [phone] Leg swelling (Primary Dx); Shortness of breath; [...] 02/25/2025 11:15 AM EST Office Visit [facility] [address] [place] [address] Shireen Stout MD [address] [place] [address] 03/17/2025 11:00 AM EST Office Visit [facility] [address] [place] [address] Rhoda Melvin CNM [address] [place] [address] documented as of this encounter Visit Diagnoses Diagnosis Leg swelling- Primary Swelling of limb Shortness of breath Heart failure with mid-range ejection fraction (HFmEF) ([facility]) documented in this encounter Additional Health Concerns Assessment Noted Time PHQ-9 Depression Total Score: 11 025 9:44 AM EDT documented as of this encounter Care Teams Benefits Specialist Recruiter Relationship Specialty Start Date End Date Shireen Stout MD [address] [place] [address] PCP - General Internal Medicine 09/08/22 [facility] 09/22/24 12/28/24 documented as of this encounter
--- OUTSIDE RECORDS SUMMARY | 2025-02-04 20:18 | XMS_ITS | Encounter Summary ---
Author Organization [employer] Address [address] [facility] 7t [place] [address] Care Team Providers Care Tank Tender Name Role Phone Shireen Stout MD Primary Care Pro vider Reason for Visit * Reason Comments Med Refill Encounter Details Date Type Department Care Team (Late st Contact Info) Description 07/27/2023 Refill [facility] [address] [place], [place] [phone] Shireen Stout MD 230 [place] [address] Diabetic peripheral neuropathy associated with type 2 [...] 02/25/2025 11:15 AM EST Office Visit [facility] [address] [place] [address] Shireen Stout MD [address] [place] [address] 03/17/2025 11:00 AM EST Office Visit [address] [address] [address] [address] documented as of this encounter Visit Diagnoses Diagnosis Diabetic peripheral neuropathy associated with type 2 diabetes mellitus (HCC) documented in this encounter Additional Health Concerns Assessment Noted Time PHQ-9 Depression Total Score: 5 12/16/19 23 2:02 PM EDT documented as of this encounter Care Teams Tank Tender Relationship Specialty Start Date End Date Shireen Stout MD [address] [place] [address] PCP - General Internal Medicine 6/2/23 [facility] 09/22/24 12/28/24 documented as of this encounter
--- OUTSIDE RECORDS SUMMARY | 2025-02-04 20:18 | XMS_ITS | Encounter Summary ---
Author Organization [employer] Address [address] [place] [address] 7t [place] [address] Care Team Providers Care Water Supply Engineer Name Role Phone Tonja Guzmán CASH TELLER Primary Care Provider Shireen Acuña MD Primary Care Pro vider Encounter Details Date Type Department Care Team (Late st Contact Info) Description 06/27/[address] [phone] Provider, MD Ja Social History Tobacco Use [...] Description 02/25/2025 11:15 AM EST Office Visit [address] [phone] Shireen Stout MD [address] [place] [phone] 03/17/2025 11:00 AM EST Office Visit [facility] [address] [place] [address] [phone] Rhoda Melvin CNM [address] [place] [phone] documented as of this encounter Procedures Procedure Name Priority Date/Time Associated Diagnosis Comments HEMOGLOBIN A1C (EXTERNAL RESULTS ONLY) Routine 04/20/2022 3:08 PM EST documented in this encounter Results * (ABNORMAL) Hemoglobin A1c (04/20/2022 3:08 PM EST) Hemoglobin A1C 8.9(A) 4.0 - 6.0 % Comment:[facility] 04/20/2022 3:08 PM EST Narrative Eliza Salgado - 04/20/2022 3:08 PM EST A1c performed at [facility] Diabetes Silva us Historical Provider POINT OF CARE TEST ENTER/ EDIT ORDERABLES Final Result documented in this encounter Visit Diagnoses Not on filedocumented in this encounter Care Teams Water Supply Engineer Relationship Specialty Start Date End Date Tonja Guzmán FNP PCP - General Family Medicine 12/04/21 09/07/22 Shireen Stout MD [address] [place] [address] PCP - General Internal Medicine 09/08/22 [facility] 09/22/24 12/28/24 documented as of this encounter
--- OUTSIDE RECORDS SUMMARY | 2025-02-04 20:18 | XMS_ITS | Clinical Summary ---
Author Organization [facility] Address [address] [place] [address] Phone Care Team Providers Care Assembler Tester Name Role Phone Pranav Stout MD Primary Care Pro vider Allergies Active Allergy Reactions Criticality Noted Date Comments Jimmy Inhibitors 11/02/2023 Apple 11/02/2023 Romero 11/02/2023 Jessamine (Prunus Persica) 11/02/2023 Peanut 11/02/2023 Medications albuterol [...] Care Team (Late st Contact Info) Description 02/06/2025 9:45 AM EDT Office Visit Orthopedic Surgery - [address] [phone] Herson Fitzgerald, DPM [address] [place] [phone] Health Maintenance Due Date Last Done Comments [...] complete this topic Insurance MEDICAID - [place] [facility] MEDICAID Care Teams Assembler Tester Relationship Specialty Start Date End Date Pranav Stout MD [address] [phone] PCP - General 08/16/23
--- OUTSIDE RECORDS SUMMARY | 2025-02-04 20:18 | XMS_ITS | Encounter Summary ---
Author Organization [employer] Address [address] [facility] 7[address] [place] [address] Care Team Providers Care Outplacement Consultant Name Role Phone Shireen Stout MD Primary Care Pro vider Reason for Visit * Reason Comments Med Refill Encounter Details Date Type Department Care Team (Late st Contact Info) Description 10/17/2023 Refill [facility] [address] [place], [place] [phone] Bruna Yusuf FNP [address] [place] [address] Social History Tobacco Use Types Packs/Day Years [...] Description 02/25/2025 11:15 AM EST Office Visit [facility] [address] [place] [phone] Shireen Stout MD [address] [place] [phone] 03/17/2025 11:00 AM EST Office Visit [address] [address] Rhoda Melvin CNM [address] [place] [phone] documented as of this encounter Visit Diagnoses Not on filedocumented in this encounter Additional Health Concerns Assessment Noted Time PHQ-9 Depression Total Score: 5 12/16/19 23 2:02 PM EDT documented as of this encounter Care Teams Outplacement Consultant Relationship Specialty Start Date End Date Shireen Stout MD [address] [place] [phone] PCP - General Internal Medicine 09/08/22 [facility] 09/22/24 12/28/24 documented as of this encounter
--- OUTSIDE RECORDS SUMMARY | 2025-02-04 20:18 | XMS_ITS | Encounter Summary ---
Author Organization [employer] Address [address] [facility] 7t [place] [address] Care Team Providers Care Bill Distributor Name Role Phone Shireen Stout MD Primary Care Pro vider Encounter Details Date Type Department Care Team (Late st Contact Info) Description 02/04/2025 Orders Only GENERIC EXTERNAL DATA DEPARTMENT Provider, Generic External Data Social History Tobacco Use Types Packs/Day Years [...] Description 02/25/2025 11:15 AM EST Office Visit [address] [address] Shireen Stout MD [address] [place] [address] [phone] 03/17/2025 11:00 AM EST Office Visit [address] [address] Rhoda Melvin [address] [phone] documented as of this encounter Procedures Procedure Name Priority Date/Time Associated Diagnosis Comments GLUCOSE, WHOLE BLOOD Routine 02/04/2025 7:06 PM EDT GLUCOSE, WHOLE BLOOD Routine 02/04/2025 6:34 PM EDT URINALYSIS, COMPLETE, WITH REFLEX TO CULTURE Routine 02/04/2025 5:53 PM EDT VENOUS BLOOD GAS Routine 02/04/2025 4:[address] ABDOMEN PELVIS W CONTRAST Routine 02/04/2025 4:33 PM EDT documented in this encounter Results * Glucose, Whole Blood (02/04/2025 7:06 PM EDT) Glucose, Whole Blood 77 60 - 115 mg/dL [facility] Comment:METER #: [id number] 02/04/2025 7:06 PM EDT 02/04/2025 7:11 PM EDT Generic External Data Provider LAB BLOOD ORDERAB LES Final Result Performing Organization Address [facility]/ZIP Co de Phone Number [facility] [address] [place] [phone] * Glucose, Whole Blood (02/04/2025 6:34 PM EDT) Glucose, Whole Blood 79 60 - 115 mg/dL [facility] Comment:METER #: [id number] 02/04/2025 6:34 PM EDT 02/04/2025 6:38 PM EDT Generic External Data Provider LAB BLOOD ORDERAB LES Final Result Performing Organization Address [facility]/ZIP Co de Phone Number [facility] [address] [place] [phone] * (ABNORMAL) Urinalysis, Complete, with Reflex to Culture (02/04/2025 5:53 PM EDT) Color Urine Yellow [facility] Appearance Urine Clear [facility] PH >=9.0 5.0 - 9.0 [facility] Glucose Urine UA >=1000(A) Negative mg/dL [facility] Urine Blood Trace(A) Negative [facility] Specific [place] - Urine >=1.030(H) 1.005 - 1.025 [facility] Urine Protein Negative Neg-Trace mg/dL [facility] Urine Ketones Negative Negative mg/dL [facility] Nitrite Urine Positive(A) Negative [facility] Leukocyte Esterase Urine Moderate (2+)(A) Negative [facility] RBC Urine 0-2 0 - 2 /HPF [facility] Urine WBC >50(A) 0 - 5 /HPF [facility] Urine Squamous Epithelial Cell 0-2 0 - 2 /HPF [facility] Urine Bacteria 2+ None Seen [facility] Hyaline Casts, Urine 0-2 0 - 2 /LPF [facility] 02/04/2025 5:53 PM EDT 02/04/2025 5:58 PM EDT Narrative [facility] - 02/04/2025 6:45 PM EDT [id number], Catheterized us Generic External Data Provider LAB URINE ORDERAB LES Final Result Performing Organization Address City/State/[facility] Co de Phone Number [facility] [address] [place] [phone] * (ABNORMAL) VENOUS BLOOD GAS (02/04/2025 4:59 PM EDT) VBG pH 7.52(H) 7.32 - 7.43 [facility] Comment:METER #: [id number] additional_comment: Cb nmania VBG PCO2 42 mmHg [facility] Comment:METER #: [id number] additional_comment: Cb nmania VBG PO2 42 mmHg [facility] Comment:METER #: [id number] additional_comment: Cb nmania VBG Base Excess 11.2 mmol/L [facility] Comment:METER #: [id number] additional_comment: Cb nmania VBG HCO3 35(H) 22 - 26 mmol/L [facility] Comment:METER #: [id number] additional_comment: Cb nmania O2 Sat, [place] 62.0 % [facility] Comment:METER #: [id number] additional_comment: Cb nmania 02/04/2025 4:59 PM EDT 02/04/2025 5:19 PM EDT us Generic External Data Provider LAB BLOOD ORDERAB LES Final Result Performing Organization Address City/State/[facility] Co de Phone Number [facility] [address] [place] [phone] * CT Abdomen Pelvis w/ Contrast (02/04/2025 4:33 PM EDT) Anatomical Region Laterality Modality Body, Pelvis, Abdomen Computed T omography 02/04/2025 4:33 PM EDT Narrative 02/04/2025 5:25 PM EDT [address] [address] [address] Scan Report Signed Patient: Shireen Tavarez MR#: [id number] 1 : 1960 Acct:[id number] Age/Sex: 64 / F ADM Date: 02/04/25 Loc: HO.ED Attending Dr: Ordering Physician: Doe Reed MD Date of Service: 02/04/25 Procedure(s): CT abdomen pelvis w IV con Accession Number(s): [id number] cc: Shireen Stout MD; Doe Reed MD Report Number: [id number]: Total DLP = 446.00 mGy-cm Reason for Exam: upper abdominal pain, free air under diaphragm EXAMINATION: CT ABDOMEN PELVIS WITH IV CONTRAST HISTORY: upper abdominal pain, free air under diaphragm COMPARISON: Previous CT of the abdomen and pelvis most recent November 2024, pelvic ultrasound November 2024 and limited abdominal ultrasound most recently March 2024 and chest x-ray from earlier the same day TECHNIQUE: CT scan of the abdomen and pelvis was performed following administration of 85 mL Omnipaque 350 using standard departmental protocol. Coronal and sagittal reformatted images were generated and reviewed. This CT exam was performed with one or more of the following dose reduction techniques: automated exposure control, adjustment of the mA and/or kV according to patient size, use of iterative reconstruction technique. DLP: 446 mGy-cm FINDINGS: LOWER CHEST: Minimal subsegmental atelectasis at the lung bases. There is no pleural effusion. CARDIOVASCULATURE: Slightly enlarged heart. There is no pericardial effusion. LIVER: Nodular liver contour suggestive of cirrhosis. No focal liver lesion. No liver mass is identified. The hepatic and portal veins are patent. GALLBLADDER / BILE DUCTS: Cholecystectomy. There is no intra or extrahepatic biliary ductal dilatation. SPLEEN: The spleen is slightly enlarged measuring 14.7 cm in AP dimension.. Multiple focal low-attenuation splenic lesions measuring up to 1.4 cm axial image 22 series 2. These are similar to prior exam. PANCREAS: Atrophic changes. No mass or duct dilatation. ADRENAL GLANDS: Within normal limits. KIDNEYS/RETROPERITONEUM: No renal calculi are identified. There is no hydronephrosis. No renal masses are identified. LYMPH NODES: Small retroperitoneal lymph nodes in the abdomen and pelvis. An small periportal lymph nodes. No enlarged lymph nodes. VASCULATURE: Atherosclerotic disease. No aneurysm. Enlarged main portal vein, upper abdominal varices and recanalized paraumbilical vein suggestive of portal hypertension. Portal and hepatic veins are patent. Varices MESENTERY/PERITONEUM: No free fluid. No masses. There is no free intraperitoneal gas. Chest x-ray finding likely related to position of a right colon superior and lateral to the liver. STOMACH: Underdistended. Difficult to exclude mild circumferential wall or fold thickening of the proximal stomach. SMALL BOWEL: The small bowel is normal in caliber. COLON: The right colon is located lateral and superior to the liver. This likely accounts for question free air on chest x-ray from earlier the same day. Proximal colon is slightly distended and fluid-filled questionable for mild ileus. There is increased stool in the colon suggestive of mild constipation. APPENDIX: Normal. URINARY BLADDER/PELVIC ORGANS: The urinary bladder is unremarkable. Stable low-attenuation lesion in the uterus measuring 3.2 x 3.8 cm. This has very low-attenuation foci questionable for fat. 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 No adnexal mass. BONES / SOFT TISSUES: No suspicious bony or soft tissue abnormalities. Bones appear osteopenic are demineralized. No hernia. CT/CT abdomen pelvis w IV con IMPRESSION: No acute findings. No evidence of free air. Slightly distended fluid-filled colon superior and lateral to the right lobe of the liver accounting for chest x-ray finding. Question mild colonic ileus and constipation. Cirrhotic appearing liver, mild splenomegaly and evidence of portal hypertension. Multiple low-attenuation splenic lesions largest measuring 1.4 cm. This appears unchanged from previous exams and may be benign. This can be further characterized with MRI if clinically warranted. Stable 3.2 x 3.8 cm low-attenuation lesion in the uterus. 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 This could be further evaluated with pelvic MRI if clinically warranted. 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 Procedure Note Donotuseinterpreter, Image - 02/04/[address] [place] [address] [address] Scan Report Signed Patient: Shireen TavarezMR#: [id number] 1 : 9Acct:[id number] Age/Sex: 64 / FADM Date: 02/04/25 Loc: HO.ED Attending Dr: Ordering Physician: Doe Reed MD Date of Service: 02/04/25 Procedure(s): CT abdomen pelvis w IV con Accession Number(s): [id number] cc: Shireen Stout MD; Doe Reed MD Report Number: [id number]: Total DLP = 446.00 mGy-cm Reason for Exam: upper abdominal pain, free air under diaphragm EXAMINATION: CT ABDOMEN PELVIS WITH IV CONTRAST HISTORY: upper abdominal pain, free air under diaphragm COMPARISON: Previous CT of the abdomen and pelvis most recent November 2024, pelvic ultrasound November 2024 and limited abdominal ultrasound most recently March 2024 and chest x-ray from earlier the same day TECHNIQUE: CT scan of the abdomen and pelvis was performed following administration of 85 mL Omnipaque 350 using standard departmental protocol. Coronal and sagittal reformatted images were generated and reviewed. This CT exam was performed with one or more of the following dose reduction techniques: automated exposure control, adjustment of the mA and/or kV according to patient size, use of iterative reconstruction technique. DLP: 446 mGy-cm FINDINGS: LOWER CHEST: Minimal subsegmental atelectasis at the lung bases. There is no pleural effusion. CARDIOVASCULATURE: Slightly enlarged heart. There is no pericardial effusion. LIVER: Nodular liver contour suggestive of cirrhosis. No focal liver lesion. No liver mass is identified. The hepatic and portal veins are patent. GALLBLADDER / BILE DUCTS: Cholecystectomy. There is no intra or extrahepatic biliary ductal dilatation. SPLEEN: The spleen is slightly enlarged measuring 14.7 cm in AP dimension.. Multiple focal low-attenuation splenic lesions measuring up to 1.4 cm axial image 22 series 2. These are similar to prior exam. PANCREAS: Atrophic changes. No mass or duct dilatation. ADRENAL GLANDS: Within normal limits. KIDNEYS/RETROPERITONEUM: No renal calculi are identified. There is no hydronephrosis. No renal masses are identified. LYMPH NODES: Small retroperitoneal lymph nodes in the abdomen and pelvis. An small periportal lymph nodes. No enlarged lymph nodes. VASCULATURE: Atherosclerotic disease. No aneurysm. Enlarged main portal vein, upper abdominal varices and recanalized paraumbilical vein suggestive of portal hypertension. Portal and hepatic veins are patent. Varices MESENTERY/PERITONEUM: No free fluid. No masses. There is no free intraperitoneal gas. Chest x-ray finding likely related to position of a right colon superior and lateral to the liver. STOMACH: Underdistended. Difficult to exclude mild circumferential wall or fold thickening of the proximal stomach. SMALL BOWEL: The small bowel is normal in caliber. COLON: The right colon is located lateral and superior to the liver. This likely accounts for question free air on chest x-ray from earlier the same day. Proximal colon is slightly distended and fluid-filled questionable for mild ileus. There is increased stool in the colon suggestive of mild constipation. APPENDIX: Normal. URINARY BLADDER/PELVIC ORGANS: The urinary bladder is unremarkable. Stable low-attenuation lesion in the uterus measuring 3.2 x 3.8 cm. This has very low-attenuation foci questionable for fat. 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 No adnexal mass. BONES / SOFT TISSUES: No suspicious bony or soft tissue abnormalities. Bones appear osteopenic are demineralized. No hernia. CT/CT abdomen pelvis w IV con IMPRESSION: No acute findings. No evidence of free air. Slightly distended fluid-filled colon superior and lateral to the right lobe of the liver accounting for chest x-ray finding. Question mild colonic ileus and constipation. Cirrhotic appearing liver, mild splenomegaly and evidence of portal hypertension. Multiple low-attenuation splenic lesions largest measuring 1.4 cm. This appears unchanged from previous exams and may be benign. This can be further characterized with MRI if clinically warranted. Stable 3.2 x 3.8 cm low-attenuation lesion in the uterus. 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 This could be further evaluated with pelvic MRI if clinically warranted. 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
--- OUTSIDE RECORDS SUMMARY | 2025-02-04 20:18 | XMS_ITS | Encounter Summary ---
Author Organization [employer] Address [address] [facility] [address]t [place] [address] Care Team Providers Care Guitar Player Name Role Phone Shireen Stout MD Primary Care Pro vider Reason for Visit * Reason Comments Med Refill Encounter Details Date Type Department Care Team (Late st Contact Info) Description 07/27/2023 Refill [facility] [address] [place], [place] [phone] Shireen Stout MD [address] [place] [address] Diabetic peripheral neuropathy associated with type 2 [...] Office Visit [facility] [address] [place] [phone] Shireen Stout MD [address] [place] [phone] 03/17/2025 11:00 AM EST Office Visit [address] [address] Rhoda Melvin [address] [address] documented as of this encounter Visit Diagnoses Diagnosis Diabetic peripheral neuropathy associated with type 2 diabetes mellitus (HCC) documented in this encounter Additional Health Concerns Assessment Noted Time PHQ-9 Depression Total Score: 5 12/16/19 23 2:02 PM EDT documented as of this encounter Care Teams Guitar Player Relationship Specialty Start Date End Date Shireen Stout MD [address] [place] [phone] PCP - General Internal Medicine 6/2/23 [facility] 09/22/24 12/28/24 documented as of this encounter
--- OUTSIDE RECORDS SUMMARY | 2025-02-04 20:18 | XMS_ITS | Clinical Summary ---
Author Organization [employer] Address [address] [place] [address] [address] [place] [address] Care Team Providers Care Business Objects Analyst Name Role Phone Shireen Stout MD [...] eye twice daily Active [facility] Test blood sugar twice daily as [...] Refills, Soft Stop, 06/18/24 12:20:00 PM EDT, [facility], Partial fill upon patient request if [...] prior to hospitalization. During the hospitalization and snf stay, it was changed to oxybutynin. - [...] OP referral and reports was connected with [facility] in the past (about 4 / [...] -2.7-on tx already -vaccines: hepAx2,hepBx3-Immune , Covid 65r5-Myvvnegj 10/2022, m34h4-y/p 20 x1, tdap 2022 ,s/p zoster vaccinex2 [...] value of -2.7-on tx already -vaccines: hepAx2,hepBx3,covid 50s1-Nltcthep today, n69s9-f/p 20 x1, tdap 2012- today booster,s/p zoster [...] associated w vascular etiology and rec for tar worker referral -pt was tx already w keflex 500 BID x 5 days at last apt w no change in rash -advised pt to raise leg -referred to tar worker -pt using fungal cream chronically px by vascular Assessment & Plan (10/25/2022 1:41 PM EDT): Pt w chronic lower left leg pain and erythema -possible vascular in nature ? -I called today her vascular Dr Adame # [phone] staff pt was last seen in 04/2022 [...] some time -pt will check w her training and development specialist if had recently any DEXA scan otherwise [...] Vit D 1999 -will check w her training and development specialist if had recently any DEXA scan otherwise [...] heterogeneous left thyroid nodule. -pt f w training and development specialist-advised pt to continue care w specialist ,pt will discuss tomorrow w specialist if had recently another US or if plan to repeat Assessment & Plan (10/25/2022 1:17 PM EDT): -thyroid US 2019: Small right lobe. Previously identified small right thyroid nodule is not appreciated. Enlarged left lobe. No appreciable change in the solitary, large, heterogeneous left thyroid nodule. -pt f w training and development specialist-advised pt to continue care w specialist ,request [...] on basal insulin? --I called to her training and development specialist-Dr Diamond at # [phone] at previous visit to discuss case. I [...] refused. -pt has f up apt w training and development specialist tomorrow and advised to discuss about basal insulin ? - manager utilization review 11/2022 mild non proliferative diabetic retinopathy to f in 6 mo -referred to skid adzer today Assessment & Plan (11/22/2022 7:42 PM EDT): Pt w DM2 -insulin dependent w neuropathy Pt is on rapid insulin 220 u in am only and invokana 10/2022 hb1AC is 7.9<---8.9-elevated Gl at 259 .microalb neg , LDL 66 -unsure why pt is not on basal insulin? --I called to her training and development specialist-Dr Diamond at # [phone] at previous visit to discuss case. I [...] refused. -pt has f up apt w training and development specialist tomorrow and advised to discuss about basal insulin ? - manager utilization review 11/2022 mild non proliferative diabetic retinopathy to f in 6 mo -referred to skid adzer today Assessment & Plan (10/25/2022 1:12 PM EDT): Pt w DM2 -insulin dependent w neuropathy Pt is on rapid insulin 220 u in am only and invokana -today hb1AC is 8.9-elevated CBG at 392--> rechecked was 302 -unsure why pt is not on basal insulin? --I called today her training and development specialist-Dr Diamond at # [phone] to discuss case. I left my cell [...] upcoming meal -will await call from her training and development specialist to discuss plan of care and advised pt to call her specialist at to schedule apt for uncontrolled DM ,likely associated w her ongoing alcohol intake. -also was referred to DM educational by her training and development specialist -referred today to manager utilization review -will refer to skid adzer at next apt -DM labs Essential hypertension [...] 466, HR 74x' 10/2022 Microalb neg - manager utilization review 11/2022 Mild non proliferative diabetic retinopathy to [...] 466, HR 74x' 10/2022 Microalb neg - manager utilization review 11/2022 Mild non proliferative diabetic retinopathy to f up in 6 mo -continue BP meds Assessment & Plan (10/25/2022 5:54 PM EDT): BP is controlled on ARBs -echo 2016 : EF between 55-60 %.Normal -nuclear stress test 2016: without EKG changes meeting criteria for ischemia. -cardiac cath 2016: non obstructive CAD -referred to manager utilization review -microalb -will check EKG at next apt [...] order new one -referred back to her funeral director/embalmer/owner to continue care-has apt on 12/2022 Assessment [...] to start trelegy -referred back to her funeral director/embalmer/owner to continue care -request ALFRED -RACQUEL to [...] diet and exercise,discussed healthy life style -discussed it field technician referral --referred already has apt for next month Assessment & Plan (10/25/2022 1:12 PM EDT): Advised pt to improve diet and exercise,discussed healthy life style -discussed it field technician referral --referred today Smoker 03/25/2015 Assessment [...] to discuss with her primary care or medical front desk specialist on getting treatment for alcohol dependence. We discussed using insulin pump, as referenced in training and development specialist note but this time patient does not feel that she can manage an insulin pump independently. Reviewed with patient how to treat hypoglycemia, hypoglycemic handout in Slovenian given to patient Encounters Date Type Department Care Team Description 02/04/2025 Orders Only GENERIC EXTERNAL DATA DEPARTMENT Provider, Generic External Data 01/22/2025 Orders Only [address] [address] Shireen Stout MD Type 2 diabetes mellitus with hyperglycemia, without long-term current use of insulin ([facility]) (Primary Dx) 01/22/[address] [address] Shireen Stout MD Referral 01/15/2025 1:40 PM EDT Office Visit [facility] [address] [place] [phone] Neda Rae DO Pain of left great toe (Primary Dx) 01/15/2025 Travel 01/08/[address] [address] Shireen Stout MD 12/30/2024 Telephone [facility] [address] [place] [phone] Maricruz Amato [place] 12/18/[address] [address] Kavitha Ortiz, RN NTTS 12/13/2024 Results Follow-Up [address] [address] Lisa Mccurdy MD POCT Hgb A1c, POCT Glucose, Basic Metabolic Panel, Additional followed-up results: 4 12/13/2024 Orders Only [address] [address] Lisa Mccurdy MD Leg swelling (Primary Dx); Shortness of breath; Heart failure with mid-range ejection fraction (HFmEF) ([facility]/HCC) 12/11/2024 9:30 AM EDT Office Visit [address] [address] Lisa Mccurdy MD Essential hypertension (Primary Dx); [...] Travel 12/05/2024 1:00 PM EDT Office Visit [facility] [address] [place] [phone] Terrence Avila MD Alcohol use disorder, severe, dependence (CMS/HCC) (Primary Dx) 12/05/2024 Travel 12/03/2024 Telephone [facility] [address] [place] [phone] Shireen Stout MD Nurse Triage 11/28/2024 Patient Outreach [facility] [address] [place] [phone] Shireen Stout MD Transition Of Care (Tcm) (HDF- scheduled (direct)) 11/25/2024 Telephone [facility] [address] [place] [phone] Shireen Stout MD chart prep 11/12/2024 Results Follow-Up [facility] [address] [place] [phone] Shireen Stout MD Us Pelvis complete 11/11/2024 Orders Only [facility] External Provider, [facility] 11/11/2024 Refill [facility] [address] [place], [place] [phone] Lisa Mccurdy MD Mixed hyperlipidemia from Last [...] Description 02/25/2025 11:15 AM EST Office Visit [facility] [address] [place] [phone] Shireen Stout MD [address] [place] [phone] 03/17/2025 11:00 AM EST Office Visit [facility] [address] [place] [phone] Wu Arroyo CNM [address] [place] [phone] Health Maintenance Due Date Last Done Comments [...] W CONTRAST Routine 02/04/2025 4:33 PM EDT LDCT LUNG SCREENING Routine 01/29/2025 1 :10 PM EDT US PELVIS TRANSVAGINAL Routine 01/23/2025 2:18 PM [...] Recently Relevant to Health Maintenance Results * Glucose, Whole Blood (02/04/2025 7:06 PM EDT) Only the most recent of2 resultswithin the time period is included. Glucose, Whole Blood 77 60 - 115 mg/dL [facility] Comment:METER #: [id number] 02/04/2025 7:06 PM EDT 02/04/2025 7:11 PM EDT us Generic External Data Provider LAB BLOOD ORDERAB LES Final Result [facility] [address] [place] [address] [phone] * (ABNORMAL) Urinalysis, Complete, with Reflex to Culture (02/04/2025 5:53 PM EDT) Color Urine Yellow [facility] Appearance Urine Clear [facility] PH >=9.0 5.0 - 9.0 [facility] Glucose Urine UA >=1000(A) Negative mg/dL [facility] Urine Blood Trace(A) Negative [facility] Specific [place] - Urine >=1.030(H) 1.005 - 1.025 [facility] Urine Protein Negative Neg-Trace mg/dL [facility] Urine Ketones Negative Negative mg/dL [facility] Nitrite Urine Positive(A) Negative [facility] Leukocyte Esterase Urine Moderate (2+)(A) Negative [facility] RBC Urine 0-2 0 - 2 /HPF [facility] Urine WBC >50(A) 0 - 5 /HPF [facility] Urine Squamous Epithelial Cell 0-2 0 - 2 /HPF [facility] Urine Bacteria 2+ None Seen [facility] Hyaline Casts, Urine 0-2 0 - 2 /LPF [facility] 02/04/2025 5:53 PM EDT 02/04/2025 5:58 PM EDT Narrative [facility] - 02/04/2025 6:45 PM EDT [id number], Catheterized us Generic External Data Provider LAB URINE ORDERAB LES Final Result Performing Organization Address [facility]/ZIP Co de Phone Number [facility] [address] [place] [address] [phone] * (ABNORMAL) VENOUS BLOOD GAS (02/04/2025 4:59 PM EDT) VBG pH 7.52(H) 7.32 - 7.43 [facility] Comment:METER #: [id number] additional_comment: Cb nmania VBG PCO2 42 mmHg [facility] Comment:METER #: [id number] additional_comment: Cb nmania VBG PO2 42 mmHg [facility] Comment:METER #: [id number] additional_comment: Cb nmania VBG Base Excess 11.2 mmol/L [facility] Comment:METER #: [id number] additional_comment: Cb nmania VBG HCO3 35(H) 22 - 26 mmol/L [facility] Comment:METER #: [id number] additional_comment: Cb nmania O2 Sat, [place] 62.0 % [facility] Comment:METER #: [id number] additional_comment: Cb nmania 02/04/2025 4:59 PM EDT 02/04/2025 5:19 PM EDT us Generic External Data Provider LAB BLOOD ORDERAB LES Final Result Performing Organization Address [facility] Co de Phone Number [facility] [address] [place] [address] [phone] * CT Abdomen Pelvis w/ Contrast (02/04/2025 4:33 PM EDT) Only the most recent of2 resultswithin the time period is included. Anatomical Region Laterality Modality Body, Pelvis, Abdomen Computed T omography 02/04/2025 4:33 PM EDT Narrative 02/04/2025 5:25 PM EDT [address] [address] [address] Scan Report Signed Patient: Shireen Tavarez MR#: [id number] 1 : 1960 Acct:[id number] Age/Sex: 64 / F ADM Date: 02/04/25 Loc: HO.ED Attending Dr: Ordering Physician: Doe Reed MD Date of Service: 02/04/25 Procedure(s): CT abdomen pelvis w IV con Accession Number(s): [id number] cc: Shireen Stout MD; Doe Reed MD Report Number: [id number]: Total DLP = 446.00 mGy-cm Reason for [...] 02/04/25 1722 DD/ 1633 TD/TT: 02/04/25 1644 Vocational Nurse: JUNIOR Procedure Note Donotuseinterpreter, Image - 02/04/[address] [place] [address] [address] Scan Report Signed Patient: Hunter Tavarez#: [id number] 1 : 9Acct:[id number] Age/Sex: 64 / FADM Date: 02/04/25 Loc: HO.ED Attending Dr: Ordering Physician: Doe Reed MD Date of Service: 02/04/25 Procedure(s): CT abdomen pelvis w IV con Accession Number(s): [id number] cc: Shireen Stout MD; Doe Reed MD Report Number: [id number]: Total DLP = 446.00 mGy-cm Reason for [...] 02/04/25 1722 DD/ 1633 TD/TT: 02/04/25 1644 Vocational Nurse: JUNIOR [facility] External Provider IMG CT PROCEDURES Final Result * CT Lung Screening Low dose (01/29/2025 1:10 PM EDT) Anatomical Region Laterality Modality Lung Computed Tomogra phy 01/29/2025 1:10 PM EDT Narrative 01/29/2025 1:12 PM EDT [place] [address] CT Scan Report Signed Patient: Shireen Tavarez MR#: [id number] 1 : 1960 Acct:[id number] Age/Sex: 64 / F ADM Date: 01/28/25 Loc: HO.CT Attending Dr: Keri Cohen PA-C Ordering Physician: Keri Cohen PA-C Date of Service: 01/28/25 Procedure(s): CT lung screening Accession Number(s): [id number] cc: Keri Cohen PA-C; Shireen Stout MD Report Number: [id number]: Total DLP = 34.00 mGy-cm Reason for Exam: Z - Personal history of nicotine dependence CLINICAL HISTORY: Z87.891 - Personal history of nicotine dependence CT lung cancer screening (LDCT) Comparison: CT/MA/SR - CT LUNG SCREENING - 01/14/24 09:50 EDT Technique: Axial CT images of the chest using low-dose technique. Referring provider counseled the patient on shared decision-making for LDCT screening. Additional counseling was provided on smoking cessation. Effective radiation dose total: DLP 23.5 mGycm, CTDIvol 0.9 mGy. Findings: No new nodules are noted. There are moderate coronary artery calcifications. There is probable hepatosplenomegaly. Previously described nodules are unchanged. IMPRESSION: LungRADS 2 - Benign Appearance: Continue annual screening with low dose Chest CT in 12 months. ##L2# This document has been electronically signed by: Javed Alba MD on 01/29/2025 13:10:49 Dictated By: Javed Alba MD Signed By: <Electronically signed by Javed Alba MD in OV> 01/29/25 1311 DD/ 1310 TD/TT: 01/29/25 1310 Vocational Nurse: Procedure Note Donotuseinterpreter, Image - 01/29/[address] [place] [address] [address] Scan Report Signed Patient: Shireen TavarezMR#: [id number] 1 : 9Acct:[id number] Age/Sex: 64 / FADM Date: 01/28/25 Loc: HO.CT Attending Dr: Keri Cohen PA-C Ordering Physician: Keri Cohen PA-C Date of Service: 01/28/25 Procedure(s): CT lung screening Accession Number(s): [id number] cc: Keri Cohen PA-C; Shireen Stout MD Report Number: [id number]: Total DLP = 34.00 mGy-cm Reason for Exam: Z87.891 - Personal history of nicotine dependence CLINICAL HISTORY: Z87.891 - Personal history of nicotine dependence CT lung cancer screening (LDCT) Comparison: CT/MA/SR - CT LUNG SCREENING - 01/14/24 09:50 EDT Technique: Axial CT images of the chest using low-dose technique. Referring provider counseled the patient on shared decision-making for LDCT screening. Additional counseling was provided on smoking cessation. Effective radiation dose total: DLP 23.5 mGycm, CTDIvol 0.9 mGy. Findings: No new nodules are noted. There are moderate coronary artery calcifications. There is probable hepatosplenomegaly. Previously described nodules are unchanged. IMPRESSION: LungRADS 2 - Benign Appearance: Continue annual screening with low dose Chest CT in 12 months. ##L2# This document has been electronically signed by: Javed Alba MD on 01/29/2025 13:10:49 Dictated By: Javed Alba MD Signed By: <Electronically signed by Javed Alba MD in OV> 01/29/25 1311 DD/ 1310 TD/TT: 01/29/25 1310 Vocational Nurse: [facility] External Provider IMG CT PROCEDURES Edited Result - Final * US Pelvis Transvaginal (01/23/2025 2:18 PM EDT) Anatomical Region Laterality Modality Pelvis Ultrasound 01/23/2025 2:18 PM EDT Narrative 01/23/2025 3:12 PM EDT [place] [address] Ultrasound Report Signed Patient: Shireen Tavarez MR#: [id number] 1 : 1960 Acct:[id number] Age/Sex: 64 / F ADM Date: 01/23/25 Loc: HO.US Attending Dr: Melchor Nunn MD Ordering Physician: Melchor Nunn MD Date of Service: 01/23/25 Procedure(s): US pelvic and transvaginal Accession Number(s): [id number] cc: Shireen Stout MD; Melchor Nunn MD [...] 01/23/25 1509 DD/ 1418 TD/TT: 01/23/25 1435 Vocational Nurse: Procedure Note Donotuseinterpreter, Image - 01/23/[address] [address] Ultrasound Report Signed Patient: Hunter Tavarez#: [id number] 1 : 9Acct:[id number] Age/Sex: 64 / FADM Date: 01/23/25 Loc: HO.US Attending Dr: Melchor Nunn MD Ordering Physician: Melchor Nunn MD Date of Service: 01/23/25 Procedure(s): US pelvic and transvaginal Accession Number(s): [id number] cc: Shireen Stout MD; Melchor Nunn MD [...] 01/23/25 1509 DD/ 1418 TD/TT: 01/23/25 1435 Vocational Nurse: us [facility] External Provider IMG US PROCEDURES Final Result * XR Toes 2+ Left (01/15/2025 3:59 PM EDT) Anatomical Region Laterality Modality Lower Extremities, Toes Left Radiogra phic Imaging 01/15/2025 3:59 PM EDT Narrative 01/15/2025 4:23 PM EDT [facility] [address] [place] [address] XRay Report Signed Patient: Shireen Tavarez MR#: [id number] 1 : 1960 Acct:[id number] Age/Sex: 64 / F ADM Date: 01/15/25 Loc: HO.CX Attending Dr: Neda Rae DO Ordering Physician: Neda Rae DO Date of Service: 01/15/25 Procedure(s): XR toe LT min 2V Accession Number(s): [id number] cc: Neda Rae DO Reason for Exam: [...] Manjeet Cee MD 01/15/2025 04:20 PM EDT Dictated By: Manjeet Cee MD Signed By: <Electronically signed by Manjeet Cee MD in OV> 01/15/25 1620 DD/ 1559 TD/TT: 01/15/25 1600 Vocational Nurse: Procedure Note Donotuseinterpreter, Image - 01/15/[address] [address] XRay Report Signed Patient: Shireen TavarezMR#: [id number] 1 : 1960cct:[id number] Age/Sex: 64 / FADM Date: 01/15/25 Loc: HO.CX Attending Dr: Neda Rae DO Ordering Physician: Neda Rae DO Date of Service: 01/15/25 Procedure(s): XR toe LT min 2V Accession Number(s): [id number] cc: Neda Rae DO Reason for Exam: [...] Cee MD in OV> 01/15/25 1620 DD/ 1559 TD/TT: 01/15/25 1600 Vocational Nurse: Neda Rae DO IMG XR PROCEDURES Final Resu lt * Vitamin D, 25-Hydroxy, Total, Immunoassay (12/11/2024 11:04 AM EDT) Vitamin D 25-OH Total 36.6 >30 ng/mL [facility] Comment: Health Based Reference Values*< 20 ng/mL Jctdosset88-45 ng/mL Insufficient> 30 ng/mL Sufficient*Acosta BERMUDEZ. N [...] ORDERABLES Final Resul t Performing Organization Address [facility]/ZIP Co de Phone Number [facility] [address] [place] [phone] * TSH with Reflex to Free T4 (12/11/2024 11:04 AM EDT) TSH reflex Free T4 0.39 0.32 - 4.0 uIU/mL [facility] Blood 12/11/2024 11:0 4 AM EDT 12/11/2024 1:28 PM EDT us Lisa Mccurdy MD LAB BLOOD ORDERABLES Final Resul t Performing Organization Address [facility] Co de Phone Number [facility] [address] [place] [phone] * (ABNORMAL) NT-proBNP (12/11/2024 11:04 AM EDT) NT-proBNP 517(A) <125 pg/mL [facility] Comment:THIS TEST WAS PERFOR MED AT:[facility] [address] [id number] AGUIRRE MD Venous blood specimen / Unknown 12/11/2024 11:04 AM EDT 12/11/2024 1:16 PM EDT us Lisa Mccurdy MD LAB BLOOD ORDERABLES Final Resul t Performing Organization Address City/[facility]/ZIP Co de Phone Number [facility] [address] [place] [address] [phone] * (ABNORMAL) CBC auto differential (12/11/2024 11:04 AM EDT) White Blood Count 5.6 4.8 - 10.8 X10*3/uL [facility] Red Blood Count 3.38(L) 4.20 - 5.50 X10*6/uL [facility] Hemoglobin 10.4(L) 12.0 - 16.0 g/dl [facility] Hematocrit 32.1(L) 37.0 - 47.0 % [facility] Mean Corpuscular Volume 95.0 80.0 - 98.0 fL [facility] Mean Corpuscular Hemoglobin 30.8 27.0 - 33.0 pg [facility] Mean Corpuscular HGB Conc 32.4 31.0 - 35.0 g/dl [facility] Red Cell Distribution Width 15.6 11.0 - 16.0 % [facility] Platelet Count 199 160 - 400 X10*3/uL [facility] Mean Platelet Volume 10.1 9.4 - 12.3 fL [facility] Neutrophils Percent Auto 65.0 45 - 73 % [facility] Imm Gran Pct Auto 0.5(H) 0.0 - 0.4 % [facility] Lymphocytes Percent Auto 25.4 20 - 40 % [facility] Monocytes Percent Auto 6.6 2 - 11 % [facility] Eosinophils Percent Auto 2.0 0 - 4 % [facility] Basophils Percent Auto 0.5 0 - 2 % [facility] NRBC Pct Auto 0.0 0.0 - 0.2 /100WBC [facility] Neutrophils Absolute Auto 3.6 2.0 - 8.3 x10*3/uL [facility] Imm Gran Abs Auto 0.03 0.00 - 0.03 X10*3/uL [facility] Lymphocytes Absolute Auto 1.4 1.2 - 4.9 X10*3/uL [facility] Monocytes Absolute Auto 0.4 0.1 - 1.2 X10*3/uL [facility] Eosinophils Absolute Auto 0.1 0.0 - 0.4 X10*3/uL [facility] Basophils Absolute Auto 0.0 0.0 - 0.2 X10*3/uL [facility] NRBC Abs Auto 0.000 0.0 - 0.012 X10*3/uL [facility] Blood Venous blood specimen / Unknown 12/11/2024 11:04 AM EDT 12/11/2024 1:28 PM EDT us Lisa Mccurdy MD LAB BLOOD ORDERABLES Final Resul t [facility] [address] [place] [address] [phone] * (ABNORMAL) Basic Metabolic Panel (12/11/2024 11:04 AM EDT) Sodium 144 135 - 145 mmol/L [facility] Potassium 3.6 3.3 - 5.1 mmol/L [facility] Chloride 106 96 - 108 mmol/L [facility] Carbon Dioxide 31(H) 22 - 29 mmol/L [facility] Anion Gap 11(L) 12 - 20 [facility] Urea Nitrogen (BUN) 5(L) 9 - 16 mg/dL [facility] Creatinine, Serum 0.56 0.5 - 1.4 mg/dL [facility] Estimated Glomerular Filt Rate >60 [facility] Comment:Chronic Kidney Disea se: Estimated GFR < 60 mL/min/1.29n2Ydvvks Kidney Disease: Estimated GFR < 15 mL/min/1.73m2 Glucose 182(H) 60 - 115 mg/dL [facility] Calcium 9.2 8.4 - 10.2 mg/dL [facility] Blood Venous blood specimen / Unknown 12/11/2024 11:04 AM EDT 12/11/2024 1:28 PM EDT Lisa Mccurdy MD LAB BLOOD ORDERABLES Final Resul t [facility] [address] [place] [address] [phone] * POCT Hgb A1c (12/11/2024 9:46 [...] Media Lot # [id number] Lot# Expiration Date 72 Blood Capillary blood specimen / Unknown 12/11/2024 9:44 AM EDT Lisa Mccurdy MD POINT OF CARE TEST ENTER/EDIT OR DERABLES Final Result * Us Pelvis complete (11/12/2024 9:45 AM EDT) Anatomical Region Laterality Modality Pelvis Ultrasound 11/12/2024 9:45 AM EDT Narrative 11/12/2024 10:38 AM EDT [address] [address] Ultrasound Report Signed Patient: Shireen Tavarez MR#: [id number] 1 : 1960 Acct:[id number] Age/Sex: 63 / F ADM Date: 11/11/24 Loc: [facility]: Dyaln Adams MD Ordering Physician: Gerri Walls MD Date of Service: 11/12/24 Procedure(s): US pelvic complete Accession Number(s): [id number] cc: Gerri Walls MD; Shireen Stout MD [...] limited by lack of an endovaginal scan. HEADING MACHINE OPERATOR consultation is recommended. Electronically signed by: Kaushik Ramirez MD 11/12/2024 10:35 AM EDT Dictated By: Kaushik Ramirez MD Signed By: <Electronically signed by Kaushik Ramirez MD in OV> 11/12/24 1035 DD/ 0945 TD/TT: 11/12/24 0948 Vocational Nurse: Procedure Note Donotuseinterpreter, Image - 11/12/2024 [place] [address] Ultrasound Report Signed Patient: Hunter Tavarez#: [id number] 1 : 9Acct:[id number] Age/Sex: 63 / FADM Date: 11/11/24 [facility]: Dylan Adams MD Ordering Physician: Gerri Walls MD Date of Service: 11/12/24 Procedure(s): US pelvic complete Accession Number(s): [id number] cc: Gerri Walls MD; Shireen Stout MD [...] limited by lack of an endovaginal scan. HEADING MACHINE OPERATOR consultation is recommended. Electronically signed by: Kaushik Ramirez MD 11/12/2024 10:35 AM EDT Dictated By: Kaushik Ramirez MD Signed By: <Electronically signed by Kaushik Ramirez MD in OV> 11/12/24 1035 DD/ 0945 TD/TT: 11/12/24 0948 Vocational Nurse: us [facility] External Provider IMG US PROCEDURES Final Result * (ABNORMAL) High Sensitivity Troponin I (11/11/2024 3:41 PM EDT) TROPONIN I HIGH SENSITIVITY 52.5(HH) <3.5 - 17.0 ng/L [facility] Comment:Critical value for t est(s): TROPONIN Results called to juan pablo back by: FANY Person calling:[id number] Date: 11/11/24Time:1612[employer] high sensitivity Troponin-I results should beused in conjunction with other diagnostic information suchas ECG, clinical observations and information, and patientsymptoms to aid in the diagnosis of [place]. 11/11/2024 3:41 PM EDT 11/11/2024 3:49 PM EDT us Generic External Data Provider LAB BLOOD ORDERAB LES Final Result Performing Organization Address City/[facility]/ZIP Co de Phone Number [facility] [address] [place] [phone] * Lactic Acid (11/11/2024 3:41 PM EDT) Lactic Acid 1.6 0.5 - 2.0 mmol/L [facility] 11/11/2024 3:41 PM EDT 11/11/2024 3:49 PM EDT Generic External Data Provider LAB BLOOD ORDERAB LES Final Result Performing Organization Address [facility] Co de Phone Number [facility] [address] [place] [phone] * BI Mammogram Screening Tomosynthesis Bilateral (06/30/2024 10:15 AM EDT) Anatomical Region Laterality Modality Breast Bilateral Mammography 06/30/2024 10:1 5 AM EDT Narrative 07/06/2024 8:14 PM EDT [facility] [address] [place] [address] Mammography Report Signed Patient: Shireen Tavarez MR#: [id number] 1 : 1960 Acct:[id number] Age/Sex: 63 / F ADM Date: 06/30/24 Loc: HO.MAMMO Attending Dr: Shireen Krishnan MD Ordering Physician: Shireen Stout MD Re sults: 2Benign Findings Date of Service: 06/30/24 Follow Up: 1 Year From Orig inal Mammogram Procedure(s): MM tomosynthesis screening BI Accession Number(s): [id number] cc: Shireen Stout MD EXAMINATION: MM SCREENING [...] OV> 07/06/242010 DD/ 1015 TD/TT: 06/30/24 1029 Vocational Nurse: Procedure Note Donotuseinterpreter, Image - 07/06/2024 [facility] [address] [place] [address] Mammography Report Signed Patient: Shireen TavarezMR#: [id number] 1 : 9Acct:[id number] Age/Sex: 63 / FADM Date: 06/30/24 Loc: HO.MAMMO Attending Dr: Shireen Krishnan MD Ordering Physician: Shireen Stout sults: 2Benign Findings Date of Service: 06/30/24Follow Up: 1 Year From Orig inal Mammogram Procedure(s): MM tomosynthesis screening BI Accession Number(s): [id number] cc: Shireen Stout MD EXAMINATION: MM SCREENING [...] OV> 07/06/242010 DD/ 1015 TD/TT: 06/30/24 1029 Vocational Nurse: Shireen Krishnan MD IMG BI PROCEDURES Edited Result - Final * Hepatitis C Antibody with Reflex to HCV, RNA, Quantitative, Real-Time PCR (02/28/2024 11:10 AM EST) Hepatitis C Antibody Nonreactive Nonreactive [facility] Comment:Antibodies to HCV no t detected; does not exclude early acuteHCV infection. Blood Venous blood specimen / Unknown 02/28/2024 11:10 AM EST 02/28/2024 11:10 AM EST Shireen Krishnan MD LAB BLOOD ORDERAB LES Final Result [facility] [address] [place] [phone] * Lipid Panel, Standard (02/28/2024 11:10 AM EST) Triglycerides 132 <150 mg/dL [facility] Comment:Desirable Triglyceri de: less than 150 mg/dLBorderline High Triglyceride 150-199 mg/dLHigh Triglyceride: 200-499 mg/dLVery High Triglyceride: greater than or equal to 5OO mg/dL Cholesterol 128 <200 mg/dL [facility] Comment:Desirable Cholestero l: less than 200 mg/dLBorderline High Cholesterol: 200-239 mg/dLHigh Cholesterol: greater than 239 mg/dL LDL Cholesterol Calculated 56 <100 mg/dL [facility] Comment:Desirable LDL: less than 100 mg/dLNear Optimal/Above Optimal LDL: 110- 129 mg/dLBorderline High LDL: 130-159 mg/dLHigh LDL: 160-189 mg/dLVery High LDL: greater than or equal to 190 mg/dL HDL Cholesterol 46 >40 mg/dL [facility] Comment:Desirable HDL: great er than 40 mg/dL Note: This HDL assay may give artificially low results in patients with liver disease. Blood Venous blood specimen / Unknown 02/28/2024 11:10 AM EST 02/28/2024 11:10 AM EST Shireen Krishnan MD LAB BLOOD ORDERAB LES Final Result [facility] [address] [place] [phone] * Albumin, Random Urine W/Creatinine (02/28/2024 11:05 AM EST) Creatinine, Urine 80.33 mg/dL [facility] Microalbumin Urine <5.0 mg/L [facility] Microalbum Creatinine Ratio Ur TNP <30 ug/mg cr [facility] Comment:Unable to calculate albumin/creatinine ratio due to lowmicroalbumin or creatinine result. Urine (Urine, Random) 02/28/2024 11:05 AM EST 02/28/2024 12:03 PM EST us Shireen Krishnan MD LAB URINE ORDERAB LES Final Result Performing Organization Address [facility]/ZIP Co de Phone Number [facility] [address] [place] [phone] * HPV mRNA E6/E7 w/Reflex to HPV Genotypes 16, 18/45 (02/19/2023 10:03 AM EST) HPV nRNA E6/E7 Not Detected Not Detected [facility] Comment:Methodology: Transcr iption-Mediated AmplificationThis assay detects E6/E7 viral messenger RNA (mRNA) from 14high-risk HPV types (16,18,31,33,35,39,45,51,52,56,58,59,66,68).Cervical sources are required for HPV testing.If a vaginal source from a patient who has had atotal hysterectomy with removal of cervix wassubmitted, please contact the testing laboratoryfor alternative testing options.For additional information, please refer tohttp://education.Ezetap/faq/RLH832k3(This link if provided for information/educational purposes only.)THIS TEST WAS PERFORMED AT:[employer] [place] [phone] AGUIRRE MD HPV mRNA E6/E7 [facility] HPV 16 RNA [facility] HPV 18/45 RNA [facility] 02/19/2023 10:0 3 AM EST 02/20/2023 11:30 AM EST us Wu Arroyo CNM LAB CYTOLOGY ORDERABLES F inal Result [facility] [address] [place] [phone] * Pap Smear (02/19/2023 10:03 AM EST) 02/19/2023 10:0 3 AM EST 02/20/2023 11:30 AM EST Narrative [facility] - 03/09/2023 12:47 PM EST ----- ------- Name: Shireen Tavarez Age/Sex: 62/F : 1960 Unit#: [id number] Attend Dr: WU ARROYO [facility] Re02/19/23 Status: [facility] ----- ------- SPEC : [id number] RECD: 02/20/230 STATUS: LUCIA NEHAL NUM: [id number] NATALIE: 02/19/23-1003 [facility] DR: WU ARROYO [facility] ENTERED: 02/20/23-1229 SP TYPE: Pap Smr OT DR: ORDERED: Pap Smear Interpretation Satisfactory for evaluation. Negative for intraepithelial lesion or malignancy. HPV mRNA E6/E7: NOT DETECTED This assay detects E6/E7 viral messenger RNA (mRNA) from 14 high-risk HPV types (16, 18, 31, 33, 35, 39, 45, 51, 52, 56, 58, 59, 66, 68) HPV testing performed by [facility], [place], [place]. See reference laboratory portion of the EMR for entire report. Clinical Information LMP: Postmenopausal Previous PAP test: 2017, ASCUS HPV neg Material Received ThinPrep-Cervical ----- ------- Signed (signature on file) JEANA [place] ([facility]) 03/09/23 1247 ----- ------- END OF REPORT Wu [facility] CYTOLOGY ORDERABLES F inal Result [facility] [address] [place] [phone] * Colonoscopy (05/04/2016) Colonoscopy performed Historical Provider HEALTH MAINTENANCE Final Result from Last 3 Months or Most Recently Relevant to Health Maintenance Insurance [facility] [employer] (O D-SNP) YANCI ZAPATA [id number] Care Teams Business Objects Analyst Relationship Specialty Start Date End Date Shireen Stout MD [address] [place] [phone] PCP - General Internal Medicine 09/08/22
--- OUTSIDE RECORDS SUMMARY | 2025-02-04 20:18 | XMS_ITS | Encounter Summary ---
Author Organization [employer] Address [address] [facility] [address] [place] [address] Care Team Providers Care Mate Chief Name Role Phone Shireen Stout MD Primary Care Pro vider Reason for Visit * Reason Comments Med Refill Encounter Details Date Type Department Care Team ([facility] st Contact Info) Description 04/05/2023 Refill [facility] [address] [place], [place] [phone] Enedelia Coley MD [address] [place], [place] [phone] Social History Tobacco Use Types Packs/Day Years [...] Description 02/25/2025 11:15 AM EST Office Visit [facility] [address] [place] [phone] Shireen Stout MD [address] [place] [phone] 03/17/2025 11:00 AM EST Office Visit [facility] [address] [place] [phone] Rhoda Melvin CNM [address] [place] [phone] documented as of this encounter Visit Diagnoses Not on filedocumented in this encounter Additional Health Concerns Assessment Noted Time PHQ-9 Depression Total Score: 5 12/16/19 23 2:02 PM EDT documented as of this encounter Care Teams Mate Chief Relationship Specialty Start Date End Date Shireen Stout MD [address] [place] [phone] PCP - General Internal Medicine 09/08/22 [facility] 09/22/24 12/28/24 documented as of this encounter
--- OUTSIDE RECORDS SUMMARY | 2025-02-04 20:18 | XMS_ITS | Encounter Summary ---
Author Organization [employer] Address [address] [facility] [address] [place] [address] Care Team Providers Care Club Steward Name Role Phone Shireen Stout MD Primary Care Pro vider Reason for Visit * Reason Onset Date Comments Nurse Triage 12/03/2024 Encounter Details Date Type Department Care Team ([facility] st Contact Info) Description 12/03/2024 Telephone [facility] [address] [place] [phone] Shireen Stout MD [address] [place] [address] Nurse Triage Social History Tobacco Use Types [...] have a UTI. Call to Pt with [facility] spanish interpreter/translator [place] [id number]. Pt is speaking for Pt who is [...] 7pm to come in the morning instead. Doctor Assistant did indicate that on INstead Pt request. [...] The caller accepted this outcome. Pt is cymraes soeaking Visiting nurse speaks uruguayan documented in this encounter Plan of Treatment Upcoming Encounters Date Type Department Care Team (Late st Contact Info) Description 02/25/2025 11:15 AM EST Office Visit [facility] [address] [place] [phone] Shireen Stout MD [address] [place] [phone] 03/17/2025 11:00 AM EST Office Visit [facility] [address] [place] [phone] Rhoda Melvin CNM [address] [place] [address] documented as of this encounter Visit Diagnoses Not on filedocumented in this encounter Additional Health Concerns Assessment Noted Time PHQ-9 Depression Total Score: 11 025 9:44 AM EDT documented as of this encounter Care Teams Club Steward Relationship Specialty Start Date End Date Shireen Stout MD [address] [place] [phone] PCP - General Internal Medicine 09/08/22 [facility] 09/22/24 12/28/24 documented as of this encounter
--- NOTE | 2025-02-04 20:59 | HO.NURTONUR ---
Pt arrived c/o worsening L great toe infection/redness/pain. 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 Admit for pain control, IV abx and possible surgery for L toe. Pt SSO, alert/oriented. 20g IV to RAC.
[2025-02-04 21:14] VITALS: BMI 23.1
[2025-02-04 21:27] LABS: Glucose, Whole Blood 156 mg/dL (60-115)
[2025-02-04] MEDS: Insulin Glargine,Hum.rec.anlog 100 UNIT/ML 10 ML VIAL 30 UNIT SUBCUT (21:46)
[2025-02-04] MEDS: 0.9 % Sodium Chloride Flush 3 ML SYRINGE IVFLUSH (21:46)
[2025-02-04] MEDS: Calcium Oyster Shell Elemental 500 MG TABLET PO (21:47)
[2025-02-05 03:29] VITALS: BP 104/51; PULSE 66; RESP 16; TEMP 37.1; O2SAT 97
[2025-02-05] MEDS: Glucose Gel 15 GM GEL..GRAM. PO (03:54)
[2025-02-05 03:58] LABS: Glucose, Whole Blood 56 mg/dL (60-115)
[2025-02-05 04:26] LABS: Glucose, Whole Blood 59 mg/dL (60-115)
[2025-02-05 04:45] LABS: Glucose, Whole Blood 193 mg/dL (60-115)
--- NOTE | 2025-02-05 05:08 | PM.EVENT ---
Event Note Date of Service: 02/05/25 Event Note: Nursing reported a BG of 56, 59 this morning. Pt asymptomatic, able to eat and drink and received Dextrose IV. BG 193 mg/dL after. Lowered Lantus to 20 U for tonight and pt could benefit from snack at HS as well. Time Spent With Patient Time: Total time managing care of this patient today ____ minutes.
[2025-02-05 05:53] LABS: Glucose, Whole Blood 120 mg/dL (60-115)
--- NOTE | 2025-02-05 05:59 | PC.NURSE ---
0352 poc-56 glucose gel given repeat poc after 15 min-59.D50 IV given repeat poc after 15 min-193.POC repeated 1 hour later 120[facility] l[facility]us [facility].
[2025-02-05 06:48] LABS: MANUAL DIFF FLAG NO
[2025-02-05 06:52] LABS: Hematocrit 31.4 % (37.0-47.0); Hemoglobin 10.1 g/dl (12.0-16.0); Imm Gran Abs Auto 0.02 X10*3/uL (0.00-0.03); Imm Gran Pct Auto 0.3 % (0.0-0.4); Lymphocytes Absolute Auto 2.1 X10*3/uL (1.2-4.9); Mean Corpuscular HGB Conc 32.2 g/dl (31.0-35.0); Mean Corpuscular Hemoglobin 30.5 pg (27.0-33.0); Mean Corpuscular Volume 94.9 fL (80.0-98.0); NRBC Abs Auto 0.000 X10*3/uL (0.0-0.012); NRBC Pct Auto 0.0 /100WBC (0.0-0.2); Platelet Count 199 X10*3/uL (160-400); Red Blood Count 3.31 X10*6/uL (4.20-5.50); White Blood Count 7.8 X10*3/uL (4.8-10.8)
[2025-02-05 07:09] LABS: Alanine Aminotransferase 9 U/L (0-31); Albumin Level 3.4 g/dL (3.5-5.0); Alkaline Phosphatase 42 U/L (39-117); Anion Gap 10 (12-20); Aspartate Amino Transferase 26 U/L (5-31); Blood Urea Nitrogen 9 mg/dL (9-16); Carbon Dioxide 30 mmol/L (22-29); Chloride 106 mmol/L (96-108); Creatinine Clr Calc Pharmacy 69.2; Estimated Glomerular Filt Rate > 60; Potassium 3.5 mmol/L (3.3-5.1); Sodium 142 mmol/L (135-145); Total Protein 6.6 g/dL (6.5-8.0)
[2025-02-05 07:14] LABS: Calcium 8.9 mg/dL (8.4-10.2)
[2025-02-05 07:37] LABS: Glucose, Whole Blood 70 mg/dL (60-115)
[2025-02-05 07:40] VITALS: BP 98/52; PULSE 59; RESP 14; TEMP 36.3; O2SAT 98
[2025-02-05] MEDS: Calcium Oyster Shell Elemental 500 MG TABLET PO ×2 (07:59→20:16)
[2025-02-05] MEDS: 0.9 % Sodium Chloride Flush 3 ML SYRINGE IVFLUSH ×3 (08:03→20:16)
--- NOTE | 2025-02-05 08:06 | PM.PNGS ---
Subjective Subjective Date of Service: 02/05/25 <Dari Rodriguez PA-C - Last Filed: 02/05/25 08:17> 02/05/25 <Miguel Bowser MD - Last Filed: 02/05/25 08:45> Interval history: C/o a little pain at her toe. <Dari Rodriguez PA-C - Last Filed: 02/05/25 08:17> Physical Exam Vital Signs: Vital Signs: Last Vital Signs Temp 97.4 F 02/05/25 07:40 Pulse 59 02/05/25 07:40 Resp 14 02/05/25 07:40 BP 98/52 L 02/05/25 07:40 Pulse Ox 98 02/05/25 07:40 O2 Del Method Nasal Cannula 02/05/25 07:40 O2 Flow Rate 2.0 02/05/25 07:40 Oxygen Flow Rate 2 02/04/25 15:11 BMI result Body Mass Index 23.1 <TEMITOPE Dietrich Last Filed: 02/05/25 08:17> Const: General: comfortable, no acute distress and alert <Dari Rodriguez PA-C - Last Filed: 02/05/25 08:17> Resp: Effort & Inspection: normal respiratory effort <TEMITOPE Dietrich Last Filed: 02/05/25 08:17> Skin: Other: warm and dry <Dari Rodriguez PA-C - Last Filed: 02/05/25 08:17> Neuro: General: moves all extremities <TEMITOPE Dietrich Last Filed: 02/05/25 08:17> Extrem: Other: left first toe- ulceration of distal end with surrounding thick callus and discoloration with superficial necrotic appearing changes; no significant drainage; mild edema and erythema extending proximally into forefoot <TEMITOPE Dietrich Last Filed: 02/05/25 08:17> Objective Data Active Medications Acetaminophen (Acetaminophen 325 Mg Tablet) 650 mg PO Q6H PRN PRN Reason: Pain, Mild 1-3,fever,headache Albuterol/Ipratropium (Albuterol/Iprat 2.5/0.5mg 3 Ml Ampul.Neb) 3 ml INHALE Q4H PRN PRN Reason: Shortness of Breath/Wheezing Atorvastatin Calcium (Atorvastatin Calcium 40 Mg Tablet) 40 mg PO BEDTIME [facility] Last Admin: 02/04/25 21:47 Dose: 40 mg Documented By: AUGUSTINE Bisacodyl (Bisacodyl 10 Mg Supp.Rect) 10 mg DE BEDTIME PRN PRN Reason: Constipation Calcium Carbonate (Calcium Carbonate 750 Mg Tab.Chew) 750 mg PO Q4H PRN PRN Reason: Heartburn Calcium Carbonate (Calcium Oyster Shell Elemental 500 Mg Tablet) 500 mg PO BID [facility] Last Admin: 02/04/25 21:47 Dose: 500 mg Documented By: AUGUSTINE Dextrose (Dextrose 50 % 25 Gm/50 Ml Syringe) 25 gm IVPUSH Q15M PRN; Protocol PRN Reason: per Hypoglycemia Standing Ord. Last Admin: 02/05/25 04:18 Dose: 25 gm Documented By: AUGUSTINE Diphenhydramine HCl (Diphenhydramine Hcl 25 Mg Capsule) 25 mg PO Q6H PRN PRN Reason: Itching Empagliflozin (Empagliflozin 10 Mg Tablet) 10 mg PO DAILY [facility] Enoxaparin Sodium (Enoxaparin Sodium 40 Mg/0.4 Ml Syringe) 40 mg SUBCUT Q24H [facility] Last Admin: 02/04/25 20:09 Dose: 40 mg Documented By: SHILPA-RON Fenofibrate (Fenofibrate,Micronized 134 Mg Capsule) 134 mg PO BEDTIME [facility] Last Admin: 02/04/25 22:08 Dose: 134 mg Documented By: AUGUSTINE Ferrous Sulfate (Ferrous Sulfate 324 Mg Tablet.) 324 mg PO MOWEFR [facility] Folic Acid (Folic Acid 1 Mg Tablet) 1 mg PO DAILY [facility] Gabapentin (Gabapentin 300 Mg Capsule) 300 mg PO BEDTIME [facility] Last Admin: 02/04/25 21:47 Dose: 300 mg Documented By: AUGUSTINE Glucose (Glucose Gel 15 Gm Gel..Gram.) 15 gm PO Q15M PRN; Protocol PRN Reason: per Hypoglycemia Standing Ord. Last Admin: 02/05/25 03:54 Dose: 15 gm Documented By: AUGUSTINE Guaifenesin (Guaifenesin 200 Mg/10 Ml 10 Ml Liquid) 10 ml PO Q4H PRN PRN Reason: Cough Hydromorphone HCl (Hydromorphone Hcl 0.5 Mg/0.5 Ml Syringe) 0.5 mg IVPUSH Q3H PRN; Protocol PRN Reason: Pain, Severe (Pain Scale 7-10) Piperacillin Sod/Tazobactam (Sod 3.375 gm/ Sodium Chloride) 50 mls @ 100 mls/hr IV Q6H [facility] Last Infusion: 02/05/25 05:05 Dose: Infused Documented By: AUGUSTINE Vancomycin HCl 1,000 mg/ (Sodium Chloride) 270 mls @ 270 mls/hr IV Q12H [facility] Last Infusion: 02/05/25 06:15 Dose: Infused Documented By: AUGUSTINE Insulin Glargine (Insulin Glargine,Hum.Rec.Anlog 100 Unit/Ml 10 Ml Vial) 20 unit SUBCUT BEDTIME [facility] Insulin Human Lispro (Insulin Lispro 100 Unit/Ml 3 Ml Vial) 0 unit SUBCUT QIDACHS [facility]; Protocol Last Admin: 02/05/25 07:32 Dose: Not Given Documented By: GARY Non-Admin Reason: No Insulin Coverage Loratadine (Loratadine 10 Mg Tablet) 10 mg PO DAILY [facility] Losartan Potassium (Losartan Potassium 25 Mg Tablet) 25 mg PO DAILY [facility]; Protocol Magnesium Hydroxide (Milk Of Magnesia 30 Ml Oral.Susp) 30 ml PO DAILY PRN PRN Reason: Constipation Melatonin (Melatonin 3 Mg Tablet) 6 mg PO BEDTIME PRN PRN Reason: Insomnia Mirabegron (Mirabegron 25 Mg Tab.Er.24h) 25 mg PO DAILY [facility] Naltrexone HCl (Naltrexone Hcl 50 Mg Tablet) 50 mg PO DAILY [facility] Omeprazole (Omeprazole 20 Mg Capsule.Dr) 20 mg PO BID@0630,1630 [facility] Last Admin: 02/05/25 05:12 Dose: 20 mg Documented By: AUGUSTINE Ondansetron HCl (Ondansetron Hcl 4 Mg/2 Ml Vial) 4 mg IVPUSH Q8H PRN PRN Reason: Nausea and Vomiting Pharmacy Consult (Consult Rx Vancomycin Dosing) 1 each MISCELLANE DAILY PRN PRN Reason: Consult order Polyethylene Glycol (Polyethylene Glycol 3350 17 Gm Powd.Pack) 17 gm PO DAILY PRN PRN Reason: Constipation Polyethylene Glycol (Polyethylene Glycol 3350 17 Gm Powd.Pack) 17 gm PO DAILY [facility] Senna (Sennosides 8.6 Mg Tablet) 17.2 mg PO BEDTIME [facility] Last Admin: 02/04/25 21:47 Dose: 17.2 mg Documented By: AUGUSTINE Sertraline HCl (Sertraline Hcl 50 Mg Tablet) 50 mg PO DAILY [facility] Sodium Chloride (0.9 % Sodium Chloride Flush 3 Ml Syringe) 3 ml IVFLUSH QSHIFT [facility] Last Admin: 02/04/25 21:46 Dose: 3 ml Documented By: AUGUSTINE Thiamine HCl (Thiamine Hcl 100 Mg Tablet) 100 mg PO DAILY [facility] Torsemide (Torsemide 20 Mg Tablet) 10 mg PO DAILY [facility]; Protocol Trazodone HCl (Trazodone Hcl 100 Mg Tablet) 100 mg PO BEDTIME [facility] Last Admin: 02/04/25 21:47 Dose: 100 mg Documented By: AUGUSTINE Vitamin D (Cholecalciferol (Vitamin D3) 25 Mcg Tablet) 50 mcg PO DAILY [facility] <Dari Rodriguez PA-C - Last Filed: 02/05/25 08:17> Labs CBC & Chem 7: 02/05/25 05:53 02/05/25 05:54 <Dari Rodriguez PA-C - Last Filed: 02/05/25 08:17> Labs: Laboratory Results - last 24 hr 02/04/25 02/04/25 02/04/25 15:38 16:45 16:50 MCV 91.4 MCH 30.0 MCHC 32.9 RDW 14.1 Plt Count 235 MPV 9.9 Immature Gran % (Auto) 0.2 Neut % (Auto) 65.5 Lymph % (Auto) 28.0 [place] % (Auto) 5.4 Eos % (Auto) 0.5 Baso % (Auto) 0.4 Lymph # (Auto) 2.3 [place] # (Auto) 0.4 Eos # (Auto) 0.0 Baso # (Auto) 0.0 Abs Immat Gran (auto) 0.02 Absolute Neuts (auto) 5.4 Absolute Nucleated RBC 0.000 Nucleated RBC % (auto) 0.0 ESR 72 H PT 13.5 H INR 1.2 H APTT 29.1 VBG pH VBG pCO2 VBG pO2 VBG HCO3 VBG O2 Saturation VBG Base Excess Anion Gap 15 Estim Creat Clear Calc 71.3 Estimated GFR > 60 POC Glucose Random Glucose 195 H Lactic Acid 1.3 Calcium 10.1 D Total Bilirubin 0.9 Direct Bilirubin 0.5 AST 31 ALT 11 Alkaline Phosphatase 55 Troponin I High Sens < 2.7 D C-Reactive Protein 0.59 H NT-Pro-B Natriuret Pep 417.9 H Total Protein 8.3 H Albumin 4.4 Lipase 7 L Urine Color Urine Appearance Urine pH Ur Specific [place] Urine Protein Urine Glucose (UA) Urine Ketones Urine Blood Urine Nitrite Ur Leukocyte Esterase Urine RBC Urine WBC Ur Squamous Epith Cells Urine Bacteria Hyaline Casts COVID-19 ([place]) Negative COVID-19 Clin Com See Note Influenza Type A (KARINA) Negative Influenza Type B (KARINA) Negative Influenza A & B Note See Note Blood Type Antibody Screen 02/04/25 02/04/25 02/04/25 16:59 17:53 18:02 MCV MCH MCHC RDW Plt Count MPV Immature Gran % (Auto) Neut % (Auto) Lymph % (Auto) [place] % (Auto) Eos % (Auto) Baso % (Auto) Lymph # (Auto) [place] # (Auto) Eos # (Auto) Baso # (Auto) Abs Immat Gran (auto) Absolute Neuts (auto) Absolute Nucleated RBC Nucleated RBC % (auto) ESR PT INR APTT VBG pH 7.52 H VBG pCO2 42 VBG pO2 42 VBG HCO3 35 H VBG O2 Saturation 62.0 VBG Base Excess 11.2 Anion Gap Estim Creat Clear Calc Estimated GFR POC Glucose Random Glucose Lactic Acid Calcium Total Bilirubin Direct Bilirubin AST ALT Alkaline Phosphatase Troponin I High Sens C-Reactive Protein NT-Pro-B Natriuret Pep Total Protein Albumin Lipase Urine Color Yellow Urine Appearance Clear Urine pH >= 9.0 Ur Specific [place] >= 1.030 H Urine Protein Negative Urine Glucose (UA) >=1000 H Urine Ketones Negative Urine Blood Trace H Urine Nitrite Positive H Ur Leukocyte Esterase Moderate (2+) H Urine RBC 0-2 Urine WBC >50 H Ur Squamous Epith Cells 0-2 Urine Bacteria 2+ Hyaline Casts 0-2 COVID-19 ([place]) COVID-19 Clin Com Influenza Type A (KARINA) Influenza Type B ([facility]ARINA) Influenza A & B Note Blood Type A Positive Antibody Screen NEGATIVE 02/04/25 02/04/25 02/04/25 18:34 19:06 21:24 MCV MCH MCHC RDW Plt Count MPV Immature Gran % (Auto) Neut % (Auto) Lymph % (Auto) [place] % (Auto) Eos % (Auto) Baso % (Auto) Lymph # (Auto) [place] # (Auto) Eos # (Auto) Baso # (Auto) Abs Immat Gran (auto) Absolute Neuts (auto) Absolute Nucleated RBC Nucleated RBC % (auto) ESR PT INR APTT VBG pH VBG pCO2 VBG pO2 VBG HCO3 VBG O2 Saturation VBG Base Excess Anion Gap Estim Creat Clear Calc Estimated GFR POC Glucose 79 77 156 H Random Glucose Lactic Acid Calcium Total Bilirubin Direct Bilirubin AST ALT Alkaline Phosphatase Troponin I High Sens C-Reactive Protein NT-Pro-B Natriuret Pep Total Protein Albumin Lipase Urine Color Urine Appearance Urine pH Ur Specific [place] Urine Protein Urine Glucose (UA) Urine Ketones Urine Blood Urine Nitrite Ur Leukocyte Esterase Urine RBC Urine WBC Ur Squamous Epith Cells Urine Bacteria Hyaline Casts COVID-19 ([place]) COVID-19 Clin Com Influenza Type A (KARINA) Influenza Type B ([facility]ARINA) Influenza A & B Note Blood Type Antibody Screen 02/05/25 02/05/25 02/05/25 03:52 04:15 04:41 MCV MCH MCHC RDW Plt Count MPV Immature Gran % (Auto) Neut % (Auto) Lymph % (Auto) [place] % (Auto) Eos % (Auto) Baso % (Auto) Lymph # (Auto) [place] # (Auto) Eos # (Auto) Baso # (Auto) Abs Immat Gran (auto) Absolute Neuts (auto) Absolute Nucleated RBC Nucleated RBC % (auto) ESR PT INR APTT VBG pH VBG pCO2 VBG pO2 VBG HCO3 VBG O2 Saturation VBG Base Excess Anion Gap Estim Creat Clear Calc Estimated GFR POC Glucose 56 L* 59 L* 193 H Random Glucose Lactic Acid Calcium Total Bilirubin Direct Bilirubin AST ALT Alkaline Phosphatase Troponin I High Sens C-Reactive Protein NT-Pro-B Natriuret Pep Total Protein Albumin Lipase Urine Color Urine Appearance Urine pH Ur Specific [place] Urine Protein Urine Glucose (UA) Urine Ketones Urine Blood Urine Nitrite Ur Leukocyte Esterase Urine RBC Urine WBC Ur Squamous Epith Cells Urine Bacteria Hyaline Casts COVID-19 ([place]) COVID-19 Clin Com Influenza Type A (KARINA) Influenza Type B ([facility]ARINA) Influenza A & B Note Blood Type Antibody Screen 02/05/25 02/05/25 02/05/25 05:49 05:53 05:54 MCV 94.9 MCH 30.5 MCHC 32.2 RDW 14.4 Plt Count 199 MPV 10.1 Immature Gran % (Auto) 0.3 Neut % (Auto) 64.9 Lymph % (Auto) 26.6 [place] % (Auto) 7.2 Eos % (Auto) 0.6 Baso % (Auto) 0.4 Lymph # (Auto) 2.1 [place] # (Auto) 0.6 Eos # (Auto) 0.1 Baso # (Auto) 0.0 Abs Immat Gran (auto) 0.02 Absolute Neuts (auto) 5.0 Absolute Nucleated RBC 0.000 Nucleated RBC % (auto) 0.0 ESR PT INR APTT VBG pH VBG pCO2 VBG pO2 VBG HCO3 VBG O2 Saturation VBG Base Excess Anion Gap 10 L Estim Creat Clear Calc 69.2 Estimated GFR > 60 POC Glucose 120 H Random Glucose 111 Lactic Acid Calcium 8.9 D Total Bilirubin 0.5 Direct Bilirubin AST 26 ALT 9 Alkaline Phosphatase 42 Troponin I High Sens C-Reactive Protein NT-Pro-B Natriuret Pep Total Protein 6.6 Albumin 3.4 L Lipase Urine Color Urine Appearance Urine pH Ur Specific [place] Urine Protein Urine Glucose (UA) Urine Ketones Urine Blood Urine Nitrite Ur Leukocyte Esterase Urine RBC Urine WBC Ur Squamous Epith Cells Urine Bacteria Hyaline Casts COVID-19 ([place]) COVID-19 Clin Com Influenza Type A (KARINA) Influenza Type B ([facility]ARINA) Influenza A & B Note Blood Type Antibody Screen 02/05/25 07:24 MCV MCH MCHC RDW Plt Count MPV Immature Gran % (Auto) Neut % (Auto) Lymph % (Auto) [place] % (Auto) Eos % (Auto) Baso % (Auto) Lymph # (Auto) [place] # (Auto) Eos # (Auto) Baso # (Auto) Abs Immat Gran (auto) Absolute Neuts (auto) Absolute Nucleated RBC Nucleated RBC % (auto) ESR PT INR APTT VBG pH VBG pCO2 VBG pO2 VBG HCO3 VBG O2 Saturation VBG Base Excess Anion Gap Estim Creat Clear Calc Estimated GFR POC Glucose 70 Random Glucose Lactic Acid Calcium Total Bilirubin Direct Bilirubin AST ALT Alkaline Phosphatase Troponin I High Sens C-Reactive Protein NT-Pro-B Natriuret Pep Total Protein Albumin Lipase Urine Color Urine Appearance Urine pH Ur Specific [place] Urine Protein Urine Glucose (UA) Urine Ketones Urine Blood Urine Nitrite Ur Leukocyte Esterase Urine RBC Urine WBC Ur Squamous Epith Cells Urine Bacteria Hyaline Casts COVID-19 ([place]) COVID-19 Clin Com Influenza Type A ([facility]INA) Influenza Type B ([facility]ARINA) Influenza A & B Note Blood Type Antibody Screen <Dari Rodriguez PA-C - Last Filed: 02/05/25 08:17> Procedures Date of Service Date of Service: 02/05/25 <Dari Rodriguez PA-C - Last Filed: 02/05/25 08:17> 02/05/25 <Miguel Bowser MD - Last Filed: 02/05/25 08:45> Progress Note: A&P Assessment and plan (1) Toe ulcer due to DM: Status: Acute <Dari Rodriguez PA-C - Last Filed: 02/05/25 08:17> Assessment and Plan: No events overnight Abdomen is soft and benign Left big toe with ulceration as described above Possible osteomyelitis Wound care Possible debridement versus amputation We will follow up Seen and examined independently <Miguel Bowser MD - Last Filed: 02/05/25 08:45> Assessment and Plan: Left first toe ulceration with surrounding cellulitis. She has some discoloration of the surrounding tissues and superficial necrotic appearing changes. Will likely need some surgical intervention, at least a debridement of the area vs amputation depending on imaging and patient wishes. Recommend MRI to further evaluate for osteo. Will continue to follow. Wound care consult for local wound care recommendations while awaiting further work up. <Dari Rodriguez PA-C - Last Filed: 02/05/25 08:17> Time Spent With Patient Time: Total time managing care of this patient today ____ minutes. <Dari Rodriguez PA-C - Last Filed: 02/05/25 08:17> Quality Stroke Does the patient have a stroke diagnosis?: No <Dari Rodriguez PA-C - Last Filed: 02/05/25 08:17> Reason for No Anti-thrombotic by Day Two: N/A - Med Ordered <Dari Rodriguez PA-C - Last Filed: 02/05/25 08:17> VTE Prior VTE?: No <Dari Rodriguez PA-C - Last Filed: 02/05/25 08:17> VTE Risk Level:: Medical - moderate - high <Dari Rodriguez PA-C - Last Filed: 02/05/25 08:17> VTE Device Contraindication: N/A - Device Ordered <TEMITOPE Dietrich Last Filed: 02/05/25 08:17> VTE Drug Contraindication: N/A - Med Ordered <Dari Rodriguez PA-C - Last Filed: 02/05/25 08:17>
--- NOTE | 2025-02-05 11:07 | MHC.CM.PN ---
Addendum entered by Inge Hay 02/05/25 12:06: PER [facility], PT IS ACTIVE WITH [facility] + [facility] FOR SNF. HAS MOW 5X WEEK AND HAS HOME 02 VIA [facility] (CONCENTRATOR). RETURN REFERRAL SENT TO [facility] +. Original Note: IMM DELIVERED. 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 PT LIVES WITH SPOUSE. 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 NO CLIENT PORTFOLIO MANAGER HELP BUT HAS ASSIST FROM SPOUSE/GRANDDAUGHTER. PT USES A WALKER FOR MOBILITY. + HCP ON FILE AND VERIFIED. PCP PRANAV MOBLEY. DP: HOME WITH NEW [facility] (FIRST CHOICE) AND [facility] FOR HOME INFUSION NEEDS. PT'S SPOUSE WILL TRANSPORT HOME. PT/SPOUSE DO NOT WANT PT GOING TO [facility], SPOUSE AND GRANDDAUGHTER WILLING AND ABLE TO LEARN IV RX ADMINISTRATION. CM WILL CONTINUE TO FOLLOW FOR ANY CHANGE TO DC PLAN/NEEDS.
[2025-02-05 11:24] LABS: Glucose, Whole Blood 97 mg/dL (60-115)
--- NOTE | 2025-02-05 13:10 | HO.WOUND ---
Wound Consult: Initial 64 yr old female admitted to [facility] on 02/04/25- See progress notes and H&P for detailed history. Wound consult placed for left great toe. Patient agreeable to assessment and photo documentation. Patient also being followed by general surgery, concern for osteo, pending further imaging potential for surgical intervention. Left great toe dorsal Left great toe plantar Etiology: diabetic foot ulcer Measurements: 0.5cm x 0.5cm x 0.2cm Wound Bed: moist pink/yellow with surrounding thick callused tissue Drainage / Odor: scant serous Edges: ? irregular Nehal wound: ? No Induration, Fluctuance or Warmth noted- swelling and redness noted to toe Pain: none Goals of Treatment: ? drainage absorption and antimicrobial effects with durafiber Recommendations: 1. Turn and Reposition every 2 hours and as needed for patient comfort. Use pillows or wedges to support off loading positions. 2. Off Load all bony prominences with use of pillows and heel boots if needed. Apply Preventative foams where needed. 3. Monitor for incontinence and moisture control, use barrier creams when needed for prevention and treatment. 4. Provide adequate and supplemental nutrition. 5. Order or Continue low air loss mattress. 6. When applicable maintain blood glucose levels per Providers order. Left great toe: cleanse with saline, apply durafiber, wrap with rolled gauze, change daily and PRN Re-consult wound care Nurse for wound deterioration or wound changes.
--- NOTE | 2025-02-05 13:43 | HO.PM.IMPN ---
Subjective Subjective Date of Service: 02/05/25 Interval History: Patient seen examined at bedside this morning, patient states that she feeling better, x-ray of left big toe with possibility of osteomyelitis. Currently on IV antibiotics. Review of Systems Review of Systems: Yes all other systems are reviewed and are negative Physical Exam Exam: Exam: General: AxOx3, No acute distress Head: AT/NC ENT: Moist mucous membranes Neck: supple CVS; RRR, S1 S2 normal Lungs: Clear bilateral breath sounds, no wheezes or crackles Abd: Soft non tender, non distended Ext: No edema and no calf tenderness MSK: 4/5 upper and lower extremities Skin: No cyanosis, left big toe w/ edema Psych: Cooperative with exam Neurology: no focal deficit Vital Signs: Vital Signs: Last Vital Signs Temp 97.4 F 02/05/25 07:40 Pulse 59 02/05/25 07:40 Resp 14 02/05/25 07:40 BP 98/52 L 02/05/25 07:40 Pulse Ox 98 02/05/25 07:40 O2 Del Method Nasal Cannula 02/05/25 07:40 O2 Flow Rate 2.0 02/05/25 07:40 Oxygen Flow Rate 2 02/04/25 15:11 BMI result Body Mass Index 23.1 Objective Data Active Medications Acetaminophen (Acetaminophen 325 Mg Tablet) 650 mg PO Q6H PRN PRN Reason: Pain, Mild 1-3,fever,headache Albuterol/Ipratropium (Albuterol/Iprat 2.5/0.5mg 3 Ml Ampul.Neb) 3 ml INHALE Q4H PRN PRN Reason: Shortness of Breath/Wheezing Atorvastatin Calcium (Atorvastatin Calcium 40 Mg Tablet) 40 mg PO BEDTIME [facility] Last Admin: 02/04/25 21:47 Dose: 40 mg Documented By: AUGUSTINE Bisacodyl (Bisacodyl 10 Mg Supp.Rect) 10 mg FL BEDTIME PRN PRN Reason: Constipation Calcium Carbonate (Calcium Carbonate 750 Mg Tab.Chew) 750 mg PO Q4H PRN PRN Reason: Heartburn Calcium Carbonate (Calcium Oyster Shell Elemental 500 Mg Tablet) 500 mg PO BID [facility] Last Admin: 02/05/25 07:59 Dose: 500 mg Documented By: GARY Dextrose (Dextrose 50 % 25 Gm/50 Ml Syringe) 25 gm IVPUSH Q15M PRN; Protocol PRN Reason: per Hypoglycemia Standing Ord. Last Admin: 02/05/25 04:18 Dose: 25 gm Documented By: AUGUSTINE Diphenhydramine HCl (Diphenhydramine Hcl 25 Mg Capsule) 25 mg PO Q6H PRN PRN Reason: Itching Empagliflozin (Empagliflozin 10 Mg Tablet) 10 mg PO DAILY [facility] Last Admin: 02/05/25 08:00 Dose: 10 mg Documented By: GARY Enoxaparin Sodium (Enoxaparin Sodium 40 Mg/0.4 Ml Syringe) 40 mg SUBCUT Q24H [facility] Last Admin: 02/04/25 20:09 Dose: 40 mg Documented By: SHILPA-RON Fenofibrate (Fenofibrate,Micronized 134 Mg Capsule) 134 mg PO BEDTIME [facility] Last Admin: 02/04/25 22:08 Dose: 134 mg Documented By: AUGUSTINE Ferrous Sulfate (Ferrous Sulfate 324 Mg Tablet.) 324 mg PO MOWEFR [facility] Folic Acid (Folic Acid 1 Mg Tablet) 1 mg PO DAILY [facility] Last Admin: 02/05/25 08:00 Dose: 1 mg Documented By: GARY Gabapentin (Gabapentin 300 Mg Capsule) 300 mg PO BEDTIME [facility] Last Admin: 02/04/25 21:47 Dose: 300 mg Documented By: AUGUSTINE Glucose (Glucose Gel 15 Gm Gel..Gram.) 15 gm PO Q15M PRN; Protocol PRN Reason: per Hypoglycemia Standing Ord. Last Admin: 02/05/25 03:54 Dose: 15 gm Documented By: AUGUSTINE Guaifenesin (Guaifenesin 200 Mg/10 Ml 10 Ml Liquid) 10 ml PO Q4H PRN PRN Reason: Cough Hydromorphone HCl (Hydromorphone Hcl 0.5 Mg/0.5 Ml Syringe) 0.5 mg IVPUSH Q3H PRN; Protocol PRN Reason: Pain, Severe (Pain Scale 7-10) Piperacillin Sod/Tazobactam (Sod 3.375 gm/ Sodium Chloride) 50 mls @ 100 mls/hr IV Q6H [facility] Last Infusion: 02/05/25 11:02 Dose: Infused Documented By: GARY Vancomycin HCl 1,000 mg/ (Sodium Chloride) 270 mls @ 270 mls/hr IV Q12H [facility] Last Infusion: 02/05/25 06:15 Dose: Infused Documented By: AUGUSTINE Insulin Glargine (Insulin Glargine,Hum.Rec.Anlog 100 Unit/Ml 10 Ml Vial) 20 unit SUBCUT BEDTIME [facility] Insulin Human Lispro (Insulin Lispro 100 Unit/Ml 3 Ml Vial) 0 unit SUBCUT QIDACHS [facility]; Protocol Last Admin: 02/05/25 11:34 Dose: Not Given Documented By: GARY Non-Admin Reason: No Insulin Coverage Loratadine (Loratadine 10 Mg Tablet) 10 mg PO DAILY [facility] Last Admin: 02/05/25 08:00 Dose: 10 mg Documented By: GARY Losartan Potassium (Losartan Potassium 25 Mg Tablet) 25 mg PO DAILY [facility]; Protocol Last Admin: 02/05/25 07:59 Dose: 25 mg Documented By: GARY Magnesium Hydroxide (Milk Of Magnesia 30 Ml Oral.Susp) 30 ml PO DAILY PRN PRN Reason: Constipation Melatonin (Melatonin 3 Mg Tablet) 6 mg PO BEDTIME PRN PRN Reason: Insomnia Mirabegron (Mirabegron 25 Mg Tab.Er.24h) 25 mg PO DAILY [facility] Last Admin: 02/05/25 08:03 Dose: 25 mg Documented By: GARY Naltrexone HCl (Naltrexone Hcl 50 Mg Tablet) 50 mg PO DAILY [facility] Last Admin: 02/05/25 08:00 Dose: 50 mg Documented By: GARY Omeprazole (Omeprazole 20 Mg Capsule.) 20 mg PO BID@0630,1630 [facility] Last Admin: 02/05/25 05:12 Dose: 20 mg Documented By: AUGUSTINE Ondansetron HCl (Ondansetron Hcl 4 Mg/2 Ml Vial) 4 mg IVPUSH Q8H PRN PRN Reason: Nausea and Vomiting Pharmacy Consult (Consult Rx Vancomycin Dosing) 1 each MISCELLANE DAILY PRN PRN Reason: Consult order Polyethylene Glycol (Polyethylene Glycol 3350 17 Gm Powd.Pack) 17 gm PO DAILY PRN PRN Reason: Constipation Polyethylene Glycol (Polyethylene Glycol 3350 17 Gm Powd.Pack) 17 gm PO DAILY [facility] Last Admin: 02/05/25 07:59 Dose: 17 gm Documented By: GARY Senna (Sennosides 8.6 Mg Tablet) 17.2 mg PO BEDTIME [facility] Last Admin: 02/04/25 21:47 Dose: 17.2 mg Documented By: AUGUSTINE Sertraline HCl (Sertraline Hcl 50 Mg Tablet) 50 mg PO DAILY [facility] Last Admin: 02/05/25 08:00 Dose: 50 mg Documented By: GARY Sodium Chloride (0.9 % Sodium Chloride Flush 3 Ml Syringe) 3 ml IVFLUSH QSHIFT [facility] Last Admin: 02/05/25 08:03 Dose: 3 ml Documented By: GARY Thiamine HCl (Thiamine Hcl 100 Mg Tablet) 100 mg PO DAILY [facility] Last Admin: 02/05/25 08:00 Dose: 100 mg Documented By: GARY Torsemide (Torsemide 20 Mg Tablet) 10 mg PO DAILY [facility]; Protocol Last Admin: 02/05/25 08:00 Dose: 10 mg Documented By: GARY Trazodone HCl (Trazodone Hcl 100 Mg Tablet) 100 mg PO BEDTIME [facility] Last Admin: 02/04/25 21:47 Dose: 100 mg Documented By: AUGUSTINE Vitamin D (Cholecalciferol (Vitamin D3) 25 Mcg Tablet) 50 mcg PO DAILY [facility] Last Admin: 02/05/25 07:59 Dose: 50 mcg Documented By: GARY Labs 02/05/25 05:53 02/05/25 05:54 Labs: Laboratory Results - last 24 hr 02/04/25 02/04/25 02/04/25 15:38 16:45 16:50 MCV 91.4 MCH 30.0 MCHC 32.9 RDW 14.1 Plt Count 235 MPV 9.9 Immature Gran % (Auto) 0.2 Neut % (Auto) 65.5 Lymph % (Auto) 28.0 [place] % (Auto) 5.4 Eos % (Auto) 0.5 Baso % (Auto) 0.4 Lymph # (Auto) 2.3 [place] # (Auto) 0.4 Eos # (Auto) 0.0 Baso # (Auto) 0.0 Abs Immat Gran (auto) 0.02 Absolute Neuts (auto) 5.4 Absolute Nucleated RBC 0.000 Nucleated RBC % (auto) 0.0 ESR 72 H PT 13.5 H INR 1.2 H APTT 29.1 VBG pH VBG pCO2 VBG pO2 VBG HCO3 VBG O2 Saturation VBG Base Excess Anion Gap 15 Estim Creat Clear Calc 71.3 Estimated GFR > 60 POC Glucose Random Glucose 195 H Lactic Acid 1.3 Calcium 10.1 D Total Bilirubin 0.9 Direct Bilirubin 0.5 AST 31 ALT 11 Alkaline Phosphatase 55 Troponin I High Sens < 2.7 D C-Reactive Protein 0.59 H NT-Pro-B Natriuret Pep 417.9 H Total Protein 8.3 H Albumin 4.4 Lipase 7 L Urine Color Urine Appearance Urine pH Ur Specific [place] Urine Protein Urine Glucose (UA) Urine Ketones Urine Blood Urine Nitrite Ur Leukocyte Esterase Urine RBC Urine WBC Ur Squamous Epith Cells Urine Bacteria Hyaline Casts COVID-19 ([place]) Negative COVID-19 Clin Com See Note Influenza Type A (KARINA) Negative Influenza Type B (KARINA) Negative Influenza A & B Note See Note Blood Type Antibody Screen 02/04/25 02/04/25 02/04/25 16:59 17:53 18:02 MCV MCH MCHC RDW Plt Count MPV Immature Gran % (Auto) Neut % (Auto) Lymph % (Auto) [place] % (Auto) Eos % (Auto) Baso % (Auto) Lymph # (Auto) [place] # (Auto) Eos # (Auto) Baso # (Auto) Abs Immat Gran (auto) Absolute Neuts (auto) Absolute Nucleated RBC Nucleated RBC % (auto) ESR PT INR APTT VBG pH 7.52 H VBG pCO2 42 VBG pO2 42 VBG HCO3 35 H VBG O2 Saturation 62.0 VBG Base Excess 11.2 Anion Gap Estim Creat Clear Calc Estimated GFR POC Glucose Random Glucose Lactic Acid Calcium Total Bilirubin Direct Bilirubin AST ALT Alkaline Phosphatase Troponin I High Sens C-Reactive Protein NT-Pro-B Natriuret Pep Total Protein Albumin Lipase Urine Color Yellow Urine Appearance Clear Urine pH >= 9.0 Ur Specific [place] >= 1.030 H Urine Protein Negative Urine Glucose (UA) >=1000 H Urine Ketones Negative Urine Blood Trace H Urine Nitrite Positive H Ur Leukocyte Esterase Moderate (2+) H Urine RBC 0-2 Urine WBC >50 H Ur Squamous Epith Cells 0-2 Urine Bacteria 2+ Hyaline Casts 0-2 COVID-19 ([place]) COVID-19 Clin Com Influenza Type A (KARINA) Influenza Type B (KARINA) Influenza A & B Note Blood Type A Positive Antibody Screen NEGATIVE 02/04/25 02/04/25 02/04/25 18:34 19:06 21:24 MCV MCH MCHC RDW Plt Count MPV Immature Gran % (Auto) Neut % (Auto) Lymph % (Auto) [place] % (Auto) Eos % (Auto) Baso % (Auto) Lymph # (Auto) [place] # (Auto) Eos # (Auto) Baso # (Auto) Abs Immat Gran (auto) Absolute Neuts (auto) Absolute Nucleated RBC Nucleated RBC % (auto) ESR PT INR APTT VBG pH VBG pCO2 VBG pO2 VBG HCO3 VBG O2 Saturation VBG Base Excess Anion Gap Estim Creat Clear Calc Estimated GFR POC Glucose 79 77 156 H Random Glucose Lactic Acid Calcium Total Bilirubin Direct Bilirubin AST ALT Alkaline Phosphatase Troponin I High Sens C-Reactive Protein NT-Pro-B Natriuret Pep Total Protein Albumin Lipase Urine Color Urine Appearance Urine pH Ur Specific [place] Urine Protein Urine Glucose (UA) Urine Ketones Urine Blood Urine Nitrite Ur Leukocyte Esterase Urine RBC Urine WBC Ur Squamous Epith Cells Urine Bacteria Hyaline Casts COVID-19 ([place]) COVID-19 Clin Com Influenza Type A (KARINA) Influenza Type B (KARINA) Influenza A & B Note Blood Type Antibody Screen 02/05/25 02/05/25 02/05/25 03:52 04:15 04:41 MCV MCH MCHC RDW Plt Count MPV Immature Gran % (Auto) Neut % (Auto) Lymph % (Auto) [place] % (Auto) Eos % (Auto) Baso % (Auto) Lymph # (Auto) [place] # (Auto) Eos # (Auto) Baso # (Auto) Abs Immat Gran (auto) Absolute Neuts (auto) Absolute Nucleated RBC Nucleated RBC % (auto) ESR PT INR APTT VBG pH VBG pCO2 VBG pO2 VBG HCO3 VBG O2 Saturation VBG Base Excess Anion Gap Estim Creat Clear Calc Estimated GFR POC Glucose 56 L* 59 L* 193 H Random Glucose Lactic Acid Calcium Total Bilirubin Direct Bilirubin AST ALT Alkaline Phosphatase Troponin I High Sens C-Reactive Protein NT-Pro-B Natriuret Pep Total Protein Albumin Lipase Urine Color Urine Appearance Urine pH Ur Specific [place] Urine Protein Urine Glucose (UA) Urine Ketones Urine Blood Urine Nitrite Ur Leukocyte Esterase Urine RBC Urine WBC Ur Squamous Epith Cells Urine Bacteria Hyaline Casts COVID-19 ([place]) COVID-19 Clin Com Influenza Type A (KARINA) Influenza Type B (KARINA) Influenza A & B Note Blood Type Antibody Screen 02/05/25 02/05/25 02/05/25 05:49 05:53 05:54 MCV 94.9 MCH 30.5 MCHC 32.2 RDW 14.4 Plt Count 199 MPV 10.1 Immature Gran % (Auto) 0.3 Neut % (Auto) 64.9 Lymph % (Auto) 26.6 [place] % (Auto) 7.2 Eos % (Auto) 0.6 Baso % (Auto) 0.4 Lymph # (Auto) 2.1 [place] # (Auto) 0.6 Eos # (Auto) 0.1 Baso # (Auto) 0.0 Abs Immat Gran (auto) 0.02 Absolute Neuts (auto) 5.0 Absolute Nucleated RBC 0.000 Nucleated RBC % (auto) 0.0 ESR PT INR APTT VBG pH VBG pCO2 VBG pO2 VBG HCO3 VBG O2 Saturation VBG Base Excess Anion Gap 10 L Estim Creat Clear Calc 69.2 Estimated GFR > 60 POC Glucose 120 H Random Glucose 111 Lactic Acid Calcium 8.9 D Total Bilirubin 0.5 Direct Bilirubin AST 26 ALT 9 Alkaline Phosphatase 42 Troponin I High Sens C-Reactive Protein NT-Pro-B Natriuret Pep Total Protein 6.6 Albumin 3.4 L Lipase Urine Color Urine Appearance Urine pH Ur Specific [place] Urine Protein Urine Glucose (UA) Urine Ketones Urine Blood Urine Nitrite Ur Leukocyte Esterase Urine RBC Urine WBC Ur Squamous Epith Cells Urine Bacteria Hyaline Casts COVID-19 ([place]) COVID-19 Clin Com Influenza Type A (KARINA) Influenza Type B (KARINA) Influenza A & B Note Blood Type Antibody Screen 02/05/25 02/05/25 07:24 11:20 MCV MCH MCHC RDW Plt Count MPV Immature Gran % (Auto) Neut % (Auto) Lymph % (Auto) [place] % (Auto) Eos % (Auto) Baso % (Auto) Lymph # (Auto) [place] # (Auto) Eos # (Auto) Baso # (Auto) Abs Immat Gran (auto) Absolute Neuts (auto) Absolute Nucleated RBC Nucleated RBC % (auto) ESR PT INR APTT VBG pH VBG pCO2 VBG pO2 VBG HCO3 VBG O2 Saturation VBG Base Excess Anion Gap Estim Creat Clear Calc Estimated GFR POC Glucose 70 97 Random Glucose Lactic Acid Calcium Total Bilirubin Direct Bilirubin AST ALT Alkaline Phosphatase Troponin I High Sens C-Reactive Protein NT-Pro-B Natriuret Pep Total Protein Albumin Lipase Urine Color Urine Appearance Urine pH Ur Specific [place] Urine Protein Urine Glucose (UA) Urine Ketones Urine Blood Urine Nitrite Ur Leukocyte Esterase Urine RBC Urine WBC Ur Squamous Epith Cells Urine Bacteria Hyaline Casts COVID-19 ([place]) COVID-19 Clin Com Influenza Type A (KARINA) Influenza Type B (KARINA) Influenza A & B Note Blood Type Antibody Screen Microbiology Microbiology Results: Microbiology 02/04/25 Unknown Urine Culture - Preliminary Urine Catheterized - Straight Catheter Culture in progress. Assessment and Plan (1) Diabetes type 2, uncontrolled: Status: Acute (2) Toe ulcer due to DM: Status: Acute (3) Cirrhosis: Status: Acute (4) Osteomyelitis of great toe of left foot: Status: Acute Plan 64-year-old Albanian-speaking female with a history of coronary artery disease, cardiomyopathy/ HFrEF, asthma/COPD on home O2, GERD, cirrhosis, alcohol use disorder states last drink was in September 2024, history of methadone use, GERD hypertension, dyslipidemia, osteoporosis,insulin dependent diabetes with CGM with diabetic neuropathy, cholecystectomy was BIBA with complaints of L big toe pain and swelling along with possible UTI and constipation. Patient being admitted for IV antibiotics and general surgery consultation. Left big toe OM imaging reviewed Continue vancomycin and Zosyn, will likely require 4-6 weeks of abs ID consulted General surgery consulted Wound care consulted Patient could benefit from diabetic shoes, likely can be obtained from her PCP as an outpatient UTI UA positive for evidence of UTI with trace heme, positive nitrites, moderate leukocyte esterase, greater than 50 WBCs, and +2 bacteria Follow urine culture Patient on vancomycin and Zosyn currently for left big toe osteomyelitis which will cover UTI [place], monitor for retention Constipation continue w/ bowel regimen IDDM II Sliding scale insulin Lantus 30 units at bedtime, we will order once med rec completed Diabetic diet Alcohol use Disorder/ Cirrhosis with mild splenomagaly and portal HTN Patient states last alcohol drink was September 2024, no indication for withdrawal, CIWA or phenobarbital on admission LFTs currently stable Patient educated that she should continue to follow with GI as an outpatient Patient currently on naltrexone 50 mg daily Thiamine and folic acid continue HFrEF BNP 417 Last echo November 2024 notes an EF of 42% with inferior septal wall and basal inferior segment hypokinesis, no evidence of pulmonary hypertension or valve disorder Continue losartan and torsemide, bipin ladjust accordingly Low-salt diet HLD Continue statin as LFTs are stable Continue fenofibrate Cardiac diet COPD without exacerbation No evidence of pneumonia, pleural effusion or pulmonary edema on chest x-ray Continue O2 at baseline 2 L nasal cannula Supportive care as needed to include duo nebs and antitussives GERD Omeprazole currently Avoid food triggers Lipoleiomyoma Chronic finding 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
--- NOTE | 2025-02-05 15:44 | HE.PHANOTE ---
[facility] Patients level came back this evening at 14.3. Patients renal function did show a slight increase. Predicted AUC of 1000 mg Q12H is 624. Will decrease to 750 mg Q12H. next level to be pulled 02/06 @1500 to ensure safety vs efficacy. Predicted AUC 624
[2025-02-05 16:00] VITALS: BP 137/59; PULSE 67; RESP 19; TEMP 36.8; O2SAT 98
[2025-02-05 16:43] LABS: Glucose, Whole Blood 91 mg/dL (60-115)
[2025-02-05 19:33] VITALS: BP 148/67; PULSE 62; RESP 19; TEMP 36.7; O2SAT 100
[2025-02-05 20:21] LABS: Glucose, Whole Blood 100 mg/dL (60-115)
--- NOTE | 2025-02-05 21:31 | PC.NURSE ---
2030 poc-100 lantus insulin held per lay Cruz NP.
--- NOTE | 2025-02-05 22:53 | PM.EVENT ---
Event Note Date of Service: 02/05/25 Event Note: Nursing notified that BG 100 this evening, will hold lantus and lower dose to 10 U HS for tomorrow as pt had episode of hypoglycemia yesterday morning Time Spent With Patient Time: Total time managing care of this patient today ____ minutes.
--- NOTE | 2025-02-05 23:03 | W.PM.IDCN ---
History of Present Illness Data of Consult Service Date: 02/05/25 Requesting physician: Dylan Ragland Primary Care Provider: Shireen Krishnan MD [facility] Reason for consult: left great toe OM She presents with left great toe swelling over last month. She abdirahman to [facility] on 01/15 and received seven days po antibiotics. She is putting alcohol and hydrogen peroxide on area and not healing. 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 Diabetes type 2, uncontrolled Family History Family History Father Esophageal cancer Mother Diabetes mellitus HTN (hypertension) Surgical History Surgical History Status post biopsy of thyroid gland History of colonoscopy (~2016) Hx of cataract extraction History of esophagogastroduodenoscopy (EGD) (~2020) Hx of cardiac cath (~12/2015) Hx of cholecystectomy (~1980) History of bladder surgery (~06/2019) Social History Social History Household Members: Spouse Housing: Apartment Do you presently have visiting nurse or other home services: Yes ([employer].) Alcohol intake: former Patient Tobacco Use Status: Former Tobacco user Tobacco use type: Cigarette Years Smoked: Onset 27, 2ppd x 24yrs, 48pyh, quit 11/2012 Smoked in Last 30 Days: No Use of substances other than those prescribed or required for medical reasons: No Currently Displaying Signs/Symptoms of Drug Intoxication Withdrawal: No Have you been hit, kicked, punched, or otherwise hurt by someone within the past year? If so, by whom?: No Do you feel safe in your current relationship?: Yes Is there a partner from a previous relationship who is making you feel unsafe now?: No Are you made to feel afraid or neglected: No Advance Directives: Yes Advance Directives on File: Yes Advance Directives Date on File: 02/28/21 Do you have a plan to hurt others: No Plan Recently lost weight without trying: No How much weight loss: Not applicable Eating poorly because of decreased appetite: No Nutrition screen score: 0 Nutrition Risks: No Nutritional Risk Patient : No : No Poor oral hygiene: No service: No Meds Allergies Allergy/AdvReac Type Severity Reaction Status Date / Time cornflower (Cornflower) Allergy Unknown ITCHY Verified 02/04/25 15:23 EYES/HIVES peach (PEACH) Allergy Unknown NATURAL Verified 02/04/25 15:23 FRUIT - MOUTH ITCHES cornell (cherries) Allergy Unknown Verified 02/04/25 15:23 morphine Allergy Itching Verified 02/04/25 15:23 apples Allergy Unknown Unknown Uncoded 02/04/25 15:23 peanut Allergy Unknown Unknown Uncoded 02/04/25 15:23 Active Medications: Current Medications Acetaminophen (Acetaminophen 325 Mg Tablet) 650 mg PO Q6H PRN PRN Reason: Pain, Mild 1-3,fever,headache Albuterol/Ipratropium (Albuterol/Iprat 2.5/0.5mg 3 Ml Ampul.Neb) 3 ml INHALE Q4H PRN PRN Reason: Shortness of Breath/Wheezing Atorvastatin Calcium (Atorvastatin Calcium 40 Mg Tablet) 40 mg PO BEDTIME [facility] Last Admin: 02/05/25 20:16 Dose: 40 mg Bisacodyl (Bisacodyl 10 Mg Supp.Rect) 10 mg [place] BEDTIME PRN PRN Reason: Constipation Calcium Carbonate (Calcium Carbonate 750 Mg Tab.Chew) 750 mg PO Q4H PRN PRN Reason: Heartburn Calcium Carbonate (Calcium Oyster Shell Elemental 500 Mg Tablet) 500 mg PO BID [facility] Last Admin: 02/05/25 20:16 Dose: 500 mg Dextrose (Dextrose 50 % 25 Gm/50 Ml Syringe) 25 gm IVPUSH Q15M PRN; Protocol PRN Reason: per Hypoglycemia Standing Ord. Last Admin: 02/05/25 04:18 Dose: 25 gm Diphenhydramine HCl (Diphenhydramine Hcl 25 Mg Capsule) 25 mg PO Q6H PRN PRN Reason: Itching Empagliflozin (Empagliflozin 10 Mg Tablet) 10 mg PO DAILY [facility] Last Admin: 02/05/25 08:00 Dose: 10 mg Enoxaparin Sodium (Enoxaparin Sodium 40 Mg/0.4 Ml Syringe) 40 mg SUBCUT Q24H JONO Last Admin: 02/05/25 20:16 Dose: 40 mg Fenofibrate (Fenofibrate,Micronized 134 Mg Capsule) 134 mg PO BEDTIME JONO Last Admin: 02/05/25 20:16 Dose: 134 mg Ferrous Sulfate (Ferrous Sulfate 324 Mg Tablet.Dr) 324 mg PO MOWEFR [facility] Folic Acid (Folic Acid 1 Mg Tablet) 1 mg PO DAILY [facility] Last Admin: 02/05/25 08:00 Dose: 1 mg Gabapentin (Gabapentin 300 Mg Capsule) 300 mg PO BEDTIME JONO Last Admin: 02/05/25 20:16 Dose: 300 mg Glucose (Glucose Gel 15 Gm Gel..Gram.) 15 gm PO Q15M PRN; Protocol PRN Reason: per Hypoglycemia Standing Ord. Last Admin: 02/05/25 03:54 Dose: 15 gm Guaifenesin (Guaifenesin 200 Mg/10 Ml 10 Ml Liquid) 10 ml PO Q4H PRN PRN Reason: Cough Hydromorphone HCl (Hydromorphone Hcl 0.5 Mg/0.5 Ml Syringe) 0.5 mg IVPUSH Q3H PRN; Protocol PRN Reason: Pain, Severe (Pain Scale 7-10) Piperacillin Sod/Tazobactam (Sod 3.375 gm/ Sodium Chloride) 50 mls @ 100 mls/hr IV Q6H JONO Last Admin: 02/05/25 22:39 Dose: 100 mls/hr Vancomycin HCl 750 mg/ Sodium (Chloride) 265 mls @ 265 mls/hr IV Q12H [facility] Last Infusion: 02/05/25 20:10 Dose: Infused Insulin Glargine (Insulin Glargine,Hum.Rec.Anlog 100 Unit/Ml 10 Ml Vial) 10 unit SUBCUT BEDTIME JONO Insulin Human Lispro (Insulin Lispro 100 Unit/Ml 3 Ml Vial) 0 unit SUBCUT QIDACHS [facility]; Protocol Last Admin: 02/05/25 20:25 Dose: Not Given Loratadine (Loratadine 10 Mg Tablet) 10 mg PO DAILY [facility] Last Admin: 02/05/25 08:00 Dose: 10 mg Losartan Potassium (Losartan Potassium 25 Mg Tablet) 25 mg PO DAILY [facility]; Protocol Last Admin: 02/05/25 07:59 Dose: 25 mg Magnesium Hydroxide (Milk Of Magnesia 30 Ml Oral.Susp) 30 ml PO DAILY PRN PRN Reason: Constipation Melatonin (Melatonin 3 Mg Tablet) 6 mg PO BEDTIME PRN PRN Reason: Insomnia Last Admin: 02/05/25 22:48 Dose: 6 mg Mirabegron (Mirabegron 25 Mg Tab.Er.24h) 25 mg PO DAILY [facility] Last Admin: 02/05/25 08:03 Dose: 25 mg Naltrexone HCl (Naltrexone Hcl 50 Mg Tablet) 50 mg PO DAILY [facility] Last Admin: 02/05/25 08:00 Dose: 50 mg Omeprazole (Omeprazole 20 Mg Capsule.Dr) 20 mg PO BID@0630,1630 [facility] Last Admin: 02/05/25 16:51 Dose: 20 mg Ondansetron HCl (Ondansetron Hcl 4 Mg/2 Ml Vial) 4 mg IVPUSH Q8H PRN PRN Reason: Nausea and Vomiting Pharmacy Consult (Consult Rx Vancomycin Dosing) 1 each MISCELLANE DAILY PRN PRN Reason: Consult order Polyethylene Glycol (Polyethylene Glycol 3350 17 Gm Powd.Pack) 17 gm PO DAILY PRN PRN Reason: Constipation Polyethylene Glycol (Polyethylene Glycol 3350 17 Gm Powd.Pack) 17 gm PO DAILY [facility] Last Admin: 02/05/25 07:59 Dose: 17 gm Senna (Sennosides 8.6 Mg Tablet) 17.2 mg PO BEDTIME [facility] Last Admin: 02/05/25 20:16 Dose: 17.2 mg Sertraline HCl (Sertraline Hcl 50 Mg Tablet) 50 mg PO DAILY [facility] Last Admin: 02/05/25 08:00 Dose: 50 mg Sodium Chloride (0.9 % Sodium Chloride Flush 3 Ml Syringe) 3 ml IVFLUSH QSHIFT [facility] Last Admin: 02/05/25 20:16 Dose: 3 ml Thiamine HCl (Thiamine Hcl 100 Mg Tablet) 100 mg PO DAILY [facility] Last Admin: 02/05/25 08:00 Dose: 100 mg Torsemide (Torsemide 20 Mg Tablet) 10 mg PO DAILY [facility]; Protocol Last Admin: 02/05/25 08:00 Dose: 10 mg Trazodone HCl (Trazodone Hcl 100 Mg Tablet) 100 mg PO BEDTIME [facility] Last Admin: 02/05/25 20:16 Dose: 100 mg Vitamin D (Cholecalciferol (Vitamin D3) 25 Mcg Tablet) 50 mcg PO DAILY [facility] Last Admin: 02/05/25 07:59 Dose: 50 mcg Home Medications ?Medication ?Instructions ?Recorded ?Confirmed ?Last Taken ?Type lancets 28 gauge (FreeStyle #100 ea 03/16/20 12/18/24 Unknown History Lancets) sertraline 50 mg tablet (Zoloft) 50 mg PO DAILY 03/16/20 02/04/25 02/04/25 History pantoprazole 20 mg tablet,delayed 20 mg PO BID@0630,1630 04/28/21 02/04/25 02/04/25 History release blood pressure test kit-large #1 ea 12/01/21 12/18/24 Unknown History flash glucose scanning reader 12/01/21 12/18/24 Unknown History (FreeStyle Lakeisha 2 Watson) flash glucose sensor (FreeStyle 12/01/21 12/18/24 Unknown History Lakeisha 2 Sensor kit) losartan 25 mg tablet 25 mg PO DAILY 12/01/21 02/04/25 02/04/25 History lancets 33 gauge (TRUEplus Lancets) #100 ea 04/20/22 12/18/24 Unknown History pen needle, diabetic 32 gauge x #50 ea 04/20/22 12/18/24 Unknown History / (BD Ultra-Fine Debbie Pen Needle) mirabegron 25 mg tablet,extended 25 mg PO DAILY 02/15/23 02/04/25 02/04/25 History release 24 hr (Myrbetriq) Oxygen Home Use 06/11/23 12/18/24 Unknown History nebulizers 06/11/23 12/18/24 Unknown History ferrous sulfate 325 mg (65 mg 325 mg PO MOWEFR 08/09/23 02/04/25 02/04/25 History iron) tablet (FeroSul) atorvastatin 40 mg tablet 40 mg PO BEDTIME 11/11/24 02/04/25 02/03/25 History cetirizine 10 mg tablet 10 mg PO DAILY 11/11/24 02/04/25 02/04/25 History fenofibrate micronized 134 mg 134 mg PO BEDTIME 11/11/24 02/04/25 02/03/25 History capsule folic acid 1 mg tablet 1 mg PO DAILY 11/11/24 02/04/25 02/04/25 History linaclotide 72 mcg capsule 72 mcg PO DAILY 11/11/24 02/04/25 02/04/25 History (Linzess) naltrexone 50 mg tablet 50 mg PO DAILY 11/11/24 02/04/25 02/04/25 History thiamine HCl (vitamin B1) 100 mg 100 mg PO DAILY 11/11/24 02/04/25 02/04/25 History tablet calcium carbonate (Oyster Shell 500 mg PO BID 02/04/25 02/04/25 02/04/25 History Calcium 500) cholecalciferol (vitamin D3) 50 50 mcg PO DAILY 02/04/25 02/04/25 02/04/25 History mcg (2,000 unit) capsule (Vitamin D3) empagliflozin 10 mg tablet 10 mg PO DAILY 02/04/25 02/04/25 02/04/25 History (Jardiance) gabapentin 300 mg capsule 300 mg PO BEDTIME 02/04/25 02/04/25 02/03/25 History insulin glargine 100 unit/mL (3 30 unit subcut BEDTIME 02/04/25 02/04/25 02/03/25 History mL) subcutaneous pen (Lantus Solostar U-100 Insulin) torsemide 10 mg tablet 10 mg PO DAILY 02/04/25 02/04/25 02/04/25 History trazodone 100 mg tablet 100 mg PO BEDTIME 02/04/25 02/04/25 02/03/25 History Physical Exam Vital Signs: Vital Signs: Last Vital Signs Temp 98.0 F 02/05/25 19:33 Pulse 62 02/05/25 19:33 Resp 19 02/05/25 19:33 BP 148/67 H 02/05/25 19:33 Pulse Ox 100 02/05/25 19:33 O2 Del Method Room Air 02/05/25 19:33 O2 Flow Rate 2.0 02/05/25 07:40 Oxygen Flow Rate 2 02/04/25 15:11 BMI result Body Mass Index 23.1 Const: General: cooperative HEENT: Head: Yes normal to inspection Face and sinus: Yes normal facial exam Mouth: Normal oral and palatal mucosa present Teeth and gingiva: dentition normal Eyes: General: appearance normal, both eyes and all related structures Pupils: Equal, round and reactive pupils present Resp: Effort & Inspection: normal respiratory effort Cardio: Rate: regular rate Rhythm: regular rhythm GI: Palpation (GI): Soft to palpation and nontender : General: Yes no CVA tenderness Back/Spine/Pelvis: Back: no CVA tenderness Skin: General skin exam: no rashes or lesions noted Neuro: General: moves all extremities Cranial nerves: Yes Equal, round and reactive pupils present Extrem: Other: left great toe open and irritated area great toe Psych: Appearance: grossly normal Results Labs 02/05/25 05:53 02/05/25 05:54 Labs: Short CBC 02/05/25 Range/Units 05:53 WBC 7.8 (4.8-10.8) X10*3/uL Hgb 10.1 L (12.0-16.0) g/dl Hct 31.4 L (37.0-47.0) % Plt Count 199 (160-400) X10*3/uL BMP 02/05/25 05:54 Sodium 142 Potassium 3.5 Chloride 106 Carbon Dioxide 30 H BUN 9 Creatinine 0.69 Calcium 8.9 D Liver Function 02/05/25 Range/Units 05:54 Total Bilirubin 0.5 (0.0-1.0) mg/dL AST 26 (5-31) U/L ALT 9 (0-31) U/L Alkaline Phosphatase 42 (39-117) U/L Albumin 3.4 L (3.5-5.0) g/dL Microbiology Microbiology Results: Microbiology 02/04/25 16:45 Blood - Venous Blood Culture - Preliminary No growth after 24 hours. 02/04/25 16:45 Blood - Venous Blood Culture - Preliminary No growth after 24 hours. 02/04/25 Unknown Urine Catheterized - Straight Catheter Urine Culture - Preliminary Culture in progress. Assessment and Plan (1) Toe ulcer due to DM: Qualifiers: Diabetes mellitus type: type 2 Laterality: left Non-pressure ulcer stage: unspecified non-pressure ulcer stage Qualified Code(s): E11.621 - Type 2 diabetes mellitus with foot ulcer; L97.529 - Non-pressure chronic ulcer of other part of left foot with unspecified severity Status: Acute Plan Would treat with six weeks IV Ertapenem with weekly CBC and creatnine and possible followup after stay
[2025-02-06 03:48] VITALS: BP 142/64; PULSE 65; RESP 18; TEMP 36.7; O2SAT 99
[2025-02-06 06:51] LABS: Creatinine Clr Calc Pharmacy 83.8; Estimated Glomerular Filt Rate > 60
[2025-02-06 07:31] VITALS: BP 112/57; PULSE 56; RESP 18; TEMP 36; O2SAT 100
[2025-02-06 08:04] LABS: Glucose, Whole Blood 81 mg/dL (60-115)
[2025-02-06] MEDS: 0.9 % Sodium Chloride Flush 3 ML SYRINGE IVFLUSH ×3 (08:28→20:46)
[2025-02-06] MEDS: Calcium Oyster Shell Elemental 500 MG TABLET PO ×2 (08:28→20:44)
[2025-02-06] MEDS: Ferrous Sulfate 324 MG TABLET.DR PO (08:31)
--- NOTE | 2025-02-06 11:48 | MHC.CM.PN ---
Patient awaiting final cx and PICC line placement. [facility] RN[facility] RN to bedside for teach with patient and daughter in law. Orders complete. Plan for dc after line placement. [facility] updated. CM will continue to follow.
[2025-02-06 11:51] LABS: Glucose, Whole Blood 133 mg/dL (60-115)
--- NOTE | 2025-02-06 12:40 | P.CDIM_ITS ---
PROVIDER RESPONSE TEXT: To clarify, the appropriate diagnosis supported by the clinical indicators: Acute QUERY TEXT: PHYSICIAN'S DOCUMENTATION REQUEST Date of Query: 02/06/2025 09:49 AM EDT Patient Name: Shireen Tavarez Admit Date: 02/04/2025 Dear Dylan Ragland MD, A review of the medical record indicates additional documentation may be needed. Please review below and update the documentation accordingly. Clinical Indicators: x-ray of LGT with possibility of osteomyelitis Currently on IV Vancomycin and IV Zosyn Clarify which of the following accurately represents the acuity of the Osteomyelitis. Possible options might include: Acute Acute on chronic Compensated Chronic stable condition Remission Other (explain) Clinically unable to determine (explain) Thank you, Floridalma Otto RN Use of terms such as suspected, likely, concern for, or probable (associated with a specific diagnosis that is being evaluated, monitored, or treated as if it exists) are acceptable and can be coded in the inpatient setting, when documented at the time of discharge. Please use your independent medical judgment in providing your response. THIS QUERY IS PART OF THE PERMANENT MEDICAL RECORD
[2025-02-06 15:58] VITALS: BP 129/58; PULSE 66; RESP 20; TEMP 36.6; O2SAT 99
--- NOTE | 2025-02-06 16:05 | P.PNIM_ITS ---
Subjective Subjective Date of Service: 02/06/25 Interval History: Patient seen examined at bedside this morning, patient states that she is feeling better, seen by infectious disease, suggested on 6 weeks of ertapenem with weekly CBC and creatinine. Pending blood cultures, was blood cultures return and if negative, we will place PICC line to continue with IV antibiotics in outpatient setting. Review of Systems Review of Systems: Yes all other systems are reviewed and are negative Physical Exam 2 Exam: Exam: General: AxOx3, No acute distress Head: AT/NC ENT: Moist mucous membranes Neck: supple CVS; RRR, S1 S2 normal Lungs: Clear bilateral breath sounds, no wheezes or crackles Abd: Soft non tender, non distended Ext: No edema, left big toe wound MSK: moving all 4 limbs Skin: No cyanosis or edema Psych: Cooperative with exam Neurology: no focal deficit Vital Signs: Vital Signs: Last Vital Signs Temp 97.9 F 02/06/25 15:58 Pulse 66 02/06/25 15:58 Resp 20 02/06/25 15:58 BP 129/58 L 02/06/25 15:58 Pulse Ox 99 02/06/25 15:58 O2 Del Method Room Air 02/06/25 15:58 O2 Flow Rate 2.0 02/06/25 07:31 Oxygen Flow Rate 2 02/04/25 15:11 BMI result Body Mass Index 23.1 Objective Data Active Medications Acetaminophen (Acetaminophen 325 Mg Tablet) 650 mg PO Q6H PRN PRN Reason: Pain, Mild 1-3,fever,headache Albuterol/Ipratropium (Albuterol/Iprat 2.5/0.5mg 3 Ml Ampul.Neb) 3 ml INHALE Q4H PRN PRN Reason: Shortness of Breath/Wheezing Atorvastatin Calcium (Atorvastatin Calcium 40 Mg Tablet) 40 mg PO BEDTIME [facility] Last Admin: 02/05/25 20:16 Dose: 40 mg Documented By: AUGUSTINE Bisacodyl (Bisacodyl 10 Mg Supp.Rect) 10 mg [place] BEDTIME PRN PRN Reason: Constipation Calcium Carbonate (Calcium Carbonate 750 Mg Tab.Chew) 750 mg PO Q4H PRN PRN Reason: Heartburn Calcium Carbonate (Calcium Oyster Shell Elemental 500 Mg Tablet) 500 mg PO BID [facility] Last Admin: 02/06/25 08:28 Dose: 500 mg Documented By: HO.LAPOINM Dextrose (Dextrose 50 % 25 Gm/50 Ml Syringe) 25 gm IVPUSH Q15M PRN; Protocol PRN Reason: per Hypoglycemia Standing Ord. Last Admin: 02/05/25 04:18 Dose: 25 gm Documented By: AUGUSTINE Diphenhydramine HCl (Diphenhydramine Hcl 25 Mg Capsule) 25 mg PO Q6H PRN PRN Reason: Itching Empagliflozin (Empagliflozin 10 Mg Tablet) 10 mg PO DAILY [facility] Last Admin: 02/06/25 08:28 Dose: 10 mg Documented By: GARY Enoxaparin Sodium (Enoxaparin Sodium 40 Mg/0.4 Ml Syringe) 40 mg SUBCUT Q24H [facility] Last Admin: 02/05/25 20:16 Dose: 40 mg Documented By: AUGUSTINE Fenofibrate (Fenofibrate,Micronized 134 Mg Capsule) 134 mg PO BEDTIME [facility] Last Admin: 02/05/25 20:16 Dose: 134 mg Documented By: AUGUSTINE Ferrous Sulfate (Ferrous Sulfate 324 Mg Tablet.) 324 mg PO MOWEFR [facility] Last Admin: 02/06/25 08:31 Dose: 324 mg Documented By: GARY Folic Acid (Folic Acid 1 Mg Tablet) 1 mg PO DAILY [facility] Last Admin: 02/06/25 08:28 Dose: 1 mg Documented By: GARY Gabapentin (Gabapentin 300 Mg Capsule) 300 mg PO BEDTIME [facility] Last Admin: 02/05/25 20:16 Dose: 300 mg Documented By: AUGUSTINE Glucose (Glucose Gel 15 Gm Gel..Gram.) 15 gm PO Q15M PRN; Protocol PRN Reason: per Hypoglycemia Standing Ord. Last Admin: 02/05/25 03:54 Dose: 15 gm Documented By: AUGUSTINE Guaifenesin (Guaifenesin 200 Mg/10 Ml 10 Ml Liquid) 10 ml PO Q4H PRN PRN Reason: Cough Hydromorphone HCl (Hydromorphone Hcl 0.5 Mg/0.5 Ml Syringe) 0.5 mg IVPUSH Q3H PRN; Protocol PRN Reason: Pain, Severe (Pain Scale 7-10) Insulin Glargine (Insulin Glargine,Hum.Rec.Anlog 100 Unit/Ml 10 Ml Vial) 10 unit SUBCUT BEDTIME [facility] Insulin Human Lispro (Insulin Lispro 100 Unit/Ml 3 Ml Vial) 0 unit SUBCUT QIDACHS [facility]; Protocol Last Admin: 02/06/25 11:53 Dose: Not Given Documented By: GARY Non-Admin Reason: No Insulin Coverage Loratadine (Loratadine 10 Mg Tablet) 10 mg PO DAILY [facility] Last Admin: 02/06/25 08:28 Dose: 10 mg Documented By: GARY Losartan Potassium (Losartan Potassium 25 Mg Tablet) 25 mg PO DAILY [facility]; Protocol Last Admin: 02/06/25 08:27 Dose: 25 mg Documented By: GARY Magnesium Hydroxide (Milk Of Magnesia 30 Ml Oral.Susp) 30 ml PO DAILY PRN PRN Reason: Constipation Melatonin (Melatonin 3 Mg Tablet) 6 mg PO BEDTIME PRN PRN Reason: Insomnia Last Admin: 02/05/25 22:48 Dose: 6 mg Documented By: AUGUSTINE Mirabegron (Mirabegron 25 Mg Tab.Er.24h) 25 mg PO DAILY [facility] Last Admin: 02/06/25 08:27 Dose: 25 mg Documented By: GARY Naltrexone HCl (Naltrexone Hcl 50 Mg Tablet) 50 mg PO DAILY [facility] Last Admin: 02/06/25 08:27 Dose: 50 mg Documented By: GARY Omeprazole (Omeprazole 20 Mg Capsule.) 20 mg PO BID@0630,1630 [facility] Last Admin: 02/06/25 04:59 Dose: 20 mg Documented By: AUGUSTINE Ondansetron HCl (Ondansetron Hcl 4 Mg/2 Ml Vial) 4 mg IVPUSH Q8H PRN PRN Reason: Nausea and Vomiting Polyethylene Glycol (Polyethylene Glycol 3350 17 Gm Powd.Pack) 17 gm PO DAILY PRN PRN Reason: Constipation Polyethylene Glycol (Polyethylene Glycol 3350 17 Gm Powd.Pack) 17 gm PO DAILY [facility] Last Admin: 02/06/25 08:27 Dose: 17 gm Documented By: GARY Senna (Sennosides 8.6 Mg Tablet) 17.2 mg PO BEDTIME [facility] Last Admin: 02/05/25 20:16 Dose: 17.2 mg Documented By: AUGUSTINE Sertraline HCl (Sertraline Hcl 50 Mg Tablet) 50 mg PO DAILY [facility] Last Admin: 02/06/25 08:28 Dose: 50 mg Documented By: GARY Sodium Chloride (0.9 % Sodium Chloride Flush 3 Ml Syringe) 3 ml IVFLUSH QSHIFT [facility] Last Admin: 02/06/25 08:28 Dose: 3 ml Documented By: GARY Thiamine HCl (Thiamine Hcl 100 Mg Tablet) 100 mg PO DAILY [facility] Last Admin: 02/06/25 08:27 Dose: 100 mg Documented By: GARY Torsemide (Torsemide 20 Mg Tablet) 10 mg PO DAILY [facility]; Protocol Last Admin: 02/06/25 08:27 Dose: 10 mg Documented By: GARY Trazodone HCl (Trazodone Hcl 100 Mg Tablet) 100 mg PO BEDTIME [facility] Last Admin: 02/05/25 20:16 Dose: 100 mg Documented By: AUGUSTINE Vitamin D (Cholecalciferol (Vitamin D3) 25 Mcg Tablet) 50 mcg PO DAILY [facility] Last Admin: 02/06/25 08:27 Dose: 50 mcg Documented By: GARY Labs 02/05/25 05:53 02/06/25 05:50 Labs: Laboratory Results - last 24 hr 02/05/25 02/05/25 02/06/25 16:29 20:14 05:50 Estim Creat Clear Calc 83.8 Estimated GFR > 60 POC Glucose 91 100 Estimat Average Glucose 94 Hemoglobin A1c % 4.9 Random Vancomycin 02/06/25 02/06/25 02/06/25 07:37 11:42 15:09 Estim Creat Clear Calc Estimated GFR POC Glucose 81 133 H Estimat Average Glucose Hemoglobin A1c % Random Vancomycin 14.5 L Microbiology Microbiology Results: Microbiology 02/04/25 Unknown Urine Culture - Preliminary Urine Catheterized - Straight Catheter Gram negative dwayne 02/04/25 16:45 Blood Culture - Preliminary Blood - Venous No growth after 24 hours. 02/04/25 16:45 Blood Culture - Preliminary Blood - Venous No growth after 24 hours. Assessment and Plan (1) Diabetes type 2, uncontrolled: Status: Acute (2) Toe ulcer due to DM: Status: Acute (3) Cirrhosis: Status: Acute (4) Osteomyelitis of great toe of left foot: Status: Acute Plan 64-year-old Maltese-speaking female with a history of coronary artery disease, cardiomyopathy/ HFrEF, asthma/COPD on home O2, GERD, cirrhosis, alcohol use disorder states last drink was in September 2024, history of methadone use, GERD hypertension, dyslipidemia, osteoporosis,insulin dependent diabetes with CGM with diabetic neuropathy, cholecystectomy was BIBA with complaints of L big toe pain and swelling along with possible UTI and constipation. on imaging positive for OM, assessed by ID suggested on ertapenem x 6 weeks. Left big toe OM imaging reviewed s/p vancomycin and Zosyn, will switch to Ertapenem per ID recs to complete a total of 6 weeks, once BC return and if negative to place PICC line and continue Abs at home. Wound care consulted Patient could benefit from diabetic shoes, likely can be obtained from her PCP as an outpatient UTI UA positive for evidence of UTI with trace heme, positive nitrites, moderate leukocyte esterase, greater than 50 WBCs, and +2 bacteria Follow urine culture S/p vancomycin and Zosyn, continue w/ abs as above [place], monitor for retention Constipation continue w/ bowel regimen IDDM II Sliding scale insulin continue Lantus Diabetic diet Alcohol use Disorder/ Cirrhosis with mild splenomagaly and portal HTN Patient states last alcohol drink was September 2024, no indication for withdrawal, CIWA or phenobarbital on admission LFTs currently stable Patient educated that she should continue to follow with GI as an outpatient Patient currently on naltrexone 50 mg daily Thiamine and folic acid continue HFrEF BNP 417 Last echo November 2024 notes an EF of 42% with inferior septal wall and basal inferior segment hypokinesis, no evidence of pulmonary hypertension or valve disorder Continue losartan and torsemide, bipin ladjust accordingly Low-salt diet HLD Continue statin as LFTs are stable Continue fenofibrate Cardiac diet COPD without exacerbation No evidence of pneumonia, pleural effusion or pulmonary edema on chest x-ray Continue O2 at baseline 2 L nasal cannula Supportive care as needed to include duo nebs and antitussives GERD Omeprazole currently Avoid food triggers Lipoleiomyoma Chronic finding Patient should continue to follow with her veterinary parasitologist No plans for hysterectomy per patient DVT prophylaxis: Lovenox Quality Stroke Does the patient have a stroke diagnosis?: No Reason for No Anti-thrombotic by Day Two: N/A - Med Ordered VTE Prior VTE?: No VTE Risk Level:: Medical - moderate - high VTE Device Contraindication: N/A - Device Ordered VTE Drug Contraindication: N/A - Med Ordered
[2025-02-06 16:32] LABS: Glucose, Whole Blood 144 mg/dL (60-115)
[2025-02-06 19:34] VITALS: BP 157/61; PULSE 65; RESP 18; TEMP 36.3; O2SAT 99
[2025-02-06 20:11] LABS: Glucose, Whole Blood 153 mg/dL (60-115)
[2025-02-06] MEDS: Insulin Glargine,Hum.rec.anlog 100 UNIT/ML 10 ML VIAL SUBCUT (20:45)
[2025-02-07 03:20] VITALS: BP 129/60; PULSE 57; RESP 14; TEMP 36.6; O2SAT 100
[2025-02-07 07:06] LABS: MANUAL DIFF FLAG NO
[2025-02-07 07:09] LABS: Hematocrit 33.6 % (37.0-47.0); Hemoglobin 11.1 g/dl (12.0-16.0); Imm Gran Abs Auto 0.02 X10*3/uL (0.00-0.03); Imm Gran Pct Auto 0.4 % (0.0-0.4); Lymphocytes Absolute Auto 2.1 X10*3/uL (1.2-4.9); Mean Corpuscular HGB Conc 33.0 g/dl (31.0-35.0); Mean Corpuscular Hemoglobin 30.6 pg (27.0-33.0); Mean Corpuscular Volume 92.6 fL (80.0-98.0); NRBC Abs Auto 0.000 X10*3/uL (0.0-0.012); NRBC Pct Auto 0.0 /100WBC (0.0-0.2); Platelet Count 175 X10*3/uL (160-400); Red Blood Count 3.63 X10*6/uL (4.20-5.50); White Blood Count 5.3 X10*3/uL (4.8-10.8)
[2025-02-07 07:22] LABS: Anion Gap 14 (12-20); Blood Urea Nitrogen 9 mg/dL (9-16); Calcium 9.6 mg/dL (8.4-10.2); Carbon Dioxide 29 mmol/L (22-29); Chloride 103 mmol/L (96-108); Creatinine Clr Calc Pharmacy 80.9; Estimated Glomerular Filt Rate > 60; Potassium 3.8 mmol/L (3.3-5.1); Sodium 142 mmol/L (135-145)
[2025-02-07 07:27] VITALS: BP 116/54; PULSE 57; RESP 16; TEMP 36.8; O2SAT 99
[2025-02-07 07:46] LABS: Glucose, Whole Blood 84 mg/dL (60-115)
[2025-02-07] MEDS: Calcium Oyster Shell Elemental 500 MG TABLET PO ×2 (09:25→20:10)
[2025-02-07] MEDS: 0.9 % Sodium Chloride Flush 3 ML SYRINGE IVFLUSH ×3 (09:26→20:11)
[2025-02-07 11:15] LABS: Glucose, Whole Blood 113 mg/dL (60-115)
--- NOTE | 2025-02-07 14:41 | HO.PM.IMPN ---
Subjective Subjective Date of Service: 02/07/25 Interval History: This history was taken in [place] from the patient. No fever Toe pain improved Review of Systems Review of Systems: Yes all other systems are reviewed and are negative Physical Exam Vital Signs: Vital Signs: Last Vital Signs Temp 98.3 F 02/07/25 07:27 Pulse 57 02/07/25 07:27 Resp 16 02/07/25 07:27 BP 116/54 L 02/07/25 07:27 Pulse Ox 99 02/07/25 07:27 O2 Del Method Nasal Cannula 02/07/25 07:27 O2 Flow Rate 2 02/07/25 07:27 Oxygen Flow Rate 2 02/04/25 15:11 BMI result Body Mass Index 23.1 Gen: in no acute distress HEENT: sclera anicteric, moist mucus membranes Neck: supple Lungs: clear to auscultation bilaterally Heart: regular rate and rhythm, no murmurs Abd: soft, non-tender, non-distended Ext: no edema Skin: warm/well-perfused, L great toe with plantar ulcer Neuro: alert and oriented x3, no focal findings Psych: appropriate affect Objective Data Active Medications Acetaminophen (Acetaminophen 325 Mg Tablet) 650 mg PO Q6H PRN PRN Reason: Pain, Mild 1-3,fever,headache Albuterol/Ipratropium (Albuterol/Iprat 2.5/0.5mg 3 Ml Ampul.Neb) 3 ml INHALE Q4H PRN PRN Reason: Shortness of Breath/Wheezing Atorvastatin Calcium (Atorvastatin Calcium 40 Mg Tablet) 40 mg PO BEDTIME [facility] Last Admin: 02/06/25 20:44 Dose: 40 mg Documented By: ELBERT Bisacodyl (Bisacodyl 10 Mg Supp.Rect) 10 mg NM BEDTIME PRN PRN Reason: Constipation Calcium Carbonate (Calcium Carbonate 750 Mg Tab.Chew) 750 mg PO Q4H PRN PRN Reason: Heartburn Calcium Carbonate (Calcium Oyster Shell Elemental 500 Mg Tablet) 500 mg PO BID [facility] Last Admin: 02/07/25 09:25 Dose: 500 mg Documented By: MARYA Dextrose (Dextrose 50 % 25 Gm/50 Ml Syringe) 25 gm IVPUSH Q15M PRN; Protocol PRN Reason: per Hypoglycemia Standing Ord. Last Admin: 02/05/25 04:18 Dose: 25 gm Documented By: AUGUSTINE Diphenhydramine HCl (Diphenhydramine Hcl 25 Mg Capsule) 25 mg PO Q6H PRN PRN Reason: Itching Empagliflozin (Empagliflozin 10 Mg Tablet) 10 mg PO DAILY [facility] Last Admin: 02/07/25 09:22 Dose: 10 mg Documented By: MARYA Enoxaparin Sodium (Enoxaparin Sodium 40 Mg/0.4 Ml Syringe) 40 mg SUBCUT Q24H [facility] Last Admin: 02/06/25 20:44 Dose: 40 mg Documented By: ELBERT Fenofibrate (Fenofibrate,Micronized 134 Mg Capsule) 134 mg PO BEDTIME [facility] Last Admin: 02/06/25 20:44 Dose: 134 mg Documented By: ELBERT Ferrous Sulfate (Ferrous Sulfate 324 Mg Tablet.Dr) 324 mg PO MOWEFR [facility] Last Admin: 02/06/25 08:31 Dose: 324 mg Documented By: GARY Folic Acid (Folic Acid 1 Mg Tablet) 1 mg PO DAILY [facility] Last Admin: 02/07/25 09:21 Dose: 1 mg Documented By: MARYA Gabapentin (Gabapentin 300 Mg Capsule) 300 mg PO BEDTIME [facility] Last Admin: 02/06/25 20:44 Dose: 300 mg Documented By: ELBERT Glucose (Glucose Gel 15 Gm Gel..Gram.) 15 gm PO Q15M PRN; Protocol PRN Reason: per Hypoglycemia Standing Ord. Last Admin: 02/05/25 03:54 Dose: 15 gm Documented By: AUGUSTINE Guaifenesin (Guaifenesin 200 Mg/10 Ml 10 Ml Liquid) 10 ml PO Q4H PRN PRN Reason: Cough Hydromorphone HCl (Hydromorphone Hcl 0.5 Mg/0.5 Ml Syringe) 0.5 mg IVPUSH Q3H PRN; Protocol PRN Reason: Pain, Severe (Pain Scale 7-10) Last Admin: 02/07/25 09:43 Dose: 0.5 mg Documented By: MARYA Insulin Glargine (Insulin Glargine,Hum.Rec.Anlog 100 Unit/Ml 10 Ml Vial) 5 unit SUBCUT BEDTIME [facility] Last Admin: 02/06/25 20:45 Dose: 5 unit Documented By: ELBERT Insulin Human Lispro (Insulin Lispro 100 Unit/Ml 3 Ml Vial) 0 unit SUBCUT [facility]; Protocol Last Admin: 02/07/25 11:08 Dose: Not Given Documented By: MARYA Non-Admin Reason: No Insulin Coverage Loratadine (Loratadine 10 Mg Tablet) 10 mg PO DAILY [facility] Last Admin: 02/07/25 09:22 Dose: 10 mg Documented By: MARYA Losartan Potassium (Losartan Potassium 25 Mg Tablet) 25 mg PO DAILY [facility]; Protocol Last Admin: 02/07/25 09:22 Dose: 25 mg Documented By: MARYA Magnesium Hydroxide (Milk Of Magnesia 30 Ml Oral.Susp) 30 ml PO DAILY PRN PRN Reason: Constipation Melatonin (Melatonin 3 Mg Tablet) 6 mg PO BEDTIME PRN PRN Reason: Insomnia Last Admin: 02/06/25 23:55 Dose: 6 mg Documented By: ELBERT Meropenem (Meropenem 1 Gm Vial) 1 gm IVPUSH Q8H [facility] Last Admin: 02/07/25 09:59 Dose: 1 gm Documented By: MARYA Mirabegron (Mirabegron 25 Mg Tab.Er.24h) 25 mg PO DAILY [facility] Last Admin: 02/07/25 09:23 Dose: 25 mg Documented By: MARYA Naltrexone HCl (Naltrexone Hcl 50 Mg Tablet) 50 mg PO DAILY [facility] Last Admin: 02/07/25 09:23 Dose: 50 mg Documented By: MARYA Omeprazole (Omeprazole 20 Mg Capsule.Dr) 20 mg PO BID@0630,1630 [facility] Last Admin: 02/07/25 05:41 Dose: 20 mg Documented By: ELBERT Ondansetron HCl (Ondansetron Hcl 4 Mg/2 Ml Vial) 4 mg IVPUSH Q8H PRN PRN Reason: Nausea and Vomiting Polyethylene Glycol (Polyethylene Glycol 3350 17 Gm Powd.Pack) 17 gm PO DAILY PRN PRN Reason: Constipation Polyethylene Glycol (Polyethylene Glycol 3350 17 Gm Powd.Pack) 17 gm PO DAILY [facility] Last Admin: 02/07/25 09:25 Dose: Not Given Documented By: MARYA Non-Admin Reason: Patient Refused Senna (Sennosides 8.6 Mg Tablet) 17.2 mg PO BEDTIME [facility] Last Admin: 02/06/25 20:44 Dose: 17.2 mg Documented By: ELBERT Sertraline HCl (Sertraline Hcl 50 Mg Tablet) 50 mg PO DAILY [facility] Last Admin: 02/07/25 09:22 Dose: 50 mg Documented By: MARYA Sodium Chloride (0.9 % Sodium Chloride Flush 3 Ml Syringe) 3 ml IVFLUSH QSHIFT [facility] Last Admin: 02/07/25 09:26 Dose: 3 ml Documented By: AMRYA Thiamine HCl (Thiamine Hcl 100 Mg Tablet) 100 mg PO DAILY [facility] Last Admin: 02/07/25 09:25 Dose: 100 mg Documented By: MARYA Torsemide (Torsemide 20 Mg Tablet) 10 mg PO DAILY [facility]; Protocol Last Admin: 02/07/25 09:23 Dose: 10 mg Documented By: MARYA Trazodone HCl (Trazodone Hcl 100 Mg Tablet) 100 mg PO BEDTIME [facility] Last Admin: 02/06/25 20:44 Dose: 100 mg Documented By: ELBERT Vitamin D (Cholecalciferol (Vitamin D3) 25 Mcg Tablet) 50 mcg PO DAILY [facility] Last Admin: 02/07/25 09:22 Dose: 50 mcg Documented By: MARYA Labs 02/07/25 06:33 02/07/25 06:33 Labs: Laboratory Results - last 24 hr 02/06/25 02/06/25 02/06/25 15:09 16:25 20:05 MCV MCH MCHC RDW Plt Count MPV Immature Gran % (Auto) Neut % (Auto) Lymph % (Auto) [place] % (Auto) Eos % (Auto) Baso % (Auto) Lymph # (Auto) [place] # (Auto) Eos # (Auto) Baso # (Auto) Abs Immat Gran (auto) Absolute Neuts (auto) Absolute Nucleated RBC Nucleated RBC % (auto) Anion Gap Estim Creat Clear Calc Estimated GFR POC Glucose 144 H 153 H Random Glucose Calcium Random Vancomycin 14.5 L 02/07/25 02/07/25 02/07/25 06:33 07:34 11:06 MCV 92.6 MCH 30.6 MCHC 33.0 RDW 14.2 Plt Count 175 MPV 10.2 Immature Gran % (Auto) 0.4 Neut % (Auto) 51.1 Lymph % (Auto) 39.7 [place] % (Auto) 6.5 Eos % (Auto) 1.7 Baso % (Auto) 0.6 Lymph # (Auto) 2.1 [place] # (Auto) 0.3 Eos # (Auto) 0.1 Baso # (Auto) 0.0 Abs Immat Gran (auto) 0.02 Absolute Neuts (auto) 2.7 Absolute Nucleated RBC 0.000 Nucleated RBC % (auto) 0.0 Anion Gap 14 Estim Creat Clear Calc 80.9 Estimated GFR > 60 POC Glucose 84 113 Random Glucose 88 Calcium 9.6 D Random Vancomycin Microbiology Microbiology Results: Microbiology 02/04/25 Unknown Urine Culture - Final Urine Catheterized - Straight Catheter Escherichia coli 02/04/25 16:45 Blood Culture - Preliminary Blood - Venous No growth after 48 hours. 02/04/25 16:45 Blood Culture - Preliminary Blood - Venous No growth after 48 hours. Assessment and Plan (1) Diabetes type 2, uncontrolled: Status: Acute (2) Toe ulcer due to DM: Status: Acute (3) Cirrhosis: Status: Acute (4) Osteomyelitis of great toe of left foot: Status: Acute Plan d4, 64yo F with CAD, HFrEF/cardiomyopathy, asthma/COPD on home O2, GERD, cirrhosis, AUD abstinent since September 2024, GERD, HTN, dyslipidemia, DM2 coming in with L great toe ulcer, pain, and swelling; found to have osteomyelitis L great toe osteomyelitis - ertapenem x6wk 02/04- [currently on meropenem, was on vanco + piperacillin-tazobactam]; will need PICC line- ordered for 02/09 - Wound Care: cleanse with saline, apply durafiber, wrap with rolled gauze, change daily and PRN E coli UTI - adequately covered by ertapenem/meropenem as above constipation: bowel regimen DM2: basal-bolus insulin, empagliflozin AUD/cirrhosis: compensated, continue naltrexone, thiamine, and folate chronic HFrEF: continue torsemide, losartan, empagliflozin neuropathy: gabapentin HLD: continue statin + fenofibrate COPD with chronic hypoxia: prn Duonebs, home O2 GERD: PPI mood disorder: sertraline VTE ppx: enoxaparin dispo: home with VNA In my clinical judgment, the patient requires continued inpatient hospitalization for the following reasons: IV ABX Total time managing care of this patient today: 35 minutes. Quality Stroke Does the patient have a stroke diagnosis?: No Reason for No Anti-thrombotic by Day Two: N/A - Med Ordered VTE Prior VTE?: No VTE Risk Level:: Medical - moderate - high VTE Device Contraindication: N/A - Device Ordered VTE Drug Contraindication: N/A - Med Ordered
[2025-02-07 16:00] VITALS: BP 120/62; PULSE 60; RESP 16; TEMP 36.5; O2SAT 98
[2025-02-07 16:47] LABS: Glucose, Whole Blood 131 mg/dL (60-115)
[2025-02-07 19:02] VITALS: BP 120/56; PULSE 72; RESP 16; TEMP 36.6; O2SAT 99
[2025-02-07 20:09] LABS: Glucose, Whole Blood 151 mg/dL (60-115)
[2025-02-07] MEDS: Insulin Glargine,Hum.rec.anlog 100 UNIT/ML 10 ML VIAL SUBCUT (21:15)
[2025-02-07 22:09] VITALS: RESP 18
[2025-02-08 04:00] VITALS: BP 107/51; PULSE 80; RESP 18; TEMP 36.5; O2SAT 98
[2025-02-08 07:23] VITALS: BP 112/52; PULSE 61; RESP 16; TEMP 36; O2SAT 100
[2025-02-08 07:28] LABS: Glucose, Whole Blood 86 mg/dL (60-115)
[2025-02-08] MEDS: Calcium Oyster Shell Elemental 500 MG TABLET PO ×2 (08:03→21:30)
[2025-02-08] MEDS: 0.9 % Sodium Chloride Flush 3 ML SYRINGE IVFLUSH ×3 (08:07→21:31)
--- NOTE | 2025-02-08 11:21 | HO.PM.IMPN ---
Subjective Subjective Date of Service: 02/08/25 Interval History: This history was taken in Yoruba from the patient. Toe pain controlled No fever Review of Systems Review of Systems: Yes all other systems are reviewed and are negative Physical Exam Vital Signs: Vital Signs: Last Vital Signs Temp 96.8 F 02/08/25 07:23 Pulse 61 02/08/25 07:23 Resp 16 02/08/25 07:23 BP 112/52 L 02/08/25 07:23 Pulse Ox 100 02/08/25 07:23 O2 Del Method Nasal Cannula 02/08/25 07:23 O2 Flow Rate 2 02/08/25 07:23 Oxygen Flow Rate 2 02/04/25 15:11 BMI result Body Mass Index 23.1 Gen: in no acute distress HEENT: sclera anicteric, moist mucus membranes Neck: supple Lungs: clear to auscultation bilaterally Heart: regular rate and rhythm, no murmurs Abd: soft, non-tender, non-distended Ext: no edema Skin: warm/well-perfused, L great toe with plantar ulcer Neuro: alert and oriented x3, no focal findings Psych: appropriate affect Objective Data Active Medications Acetaminophen (Acetaminophen 325 Mg Tablet) 650 mg PO Q6H PRN PRN Reason: Pain, Mild 1-3,fever,headache Last Admin: 02/08/25 08:04 Dose: 650 mg Documented By: BIBIANA Albuterol/Ipratropium (Albuterol/Iprat 2.5/0.5mg 3 Ml Ampul.Neb) 3 ml INHALE Q4H PRN PRN Reason: Shortness of Breath/Wheezing Atorvastatin Calcium (Atorvastatin Calcium 40 Mg Tablet) 40 mg PO BEDTIME [facility] Last Admin: 02/07/25 20:10 Dose: 40 mg Documented By: ELBERT Bisacodyl (Bisacodyl 10 Mg Supp.Rect) 10 mg OR BEDTIME PRN PRN Reason: Constipation Calcium Carbonate (Calcium Carbonate 750 Mg Tab.Chew) 750 mg PO Q4H PRN PRN Reason: Heartburn Calcium Carbonate (Calcium Oyster Shell Elemental 500 Mg Tablet) 500 mg PO BID [facility] Last Admin: 02/08/25 08:03 Dose: 500 mg Documented By: BIBIANA Dextrose (Dextrose 50 % 25 Gm/50 Ml Syringe) 25 gm IVPUSH Q15M PRN; Protocol PRN Reason: per Hypoglycemia Standing Ord. Last Admin: 02/05/25 04:18 Dose: 25 gm Documented By: AUGUSTINE Diphenhydramine HCl (Diphenhydramine Hcl 25 Mg Capsule) 25 mg PO Q6H PRN PRN Reason: Itching Empagliflozin (Empagliflozin 10 Mg Tablet) 10 mg PO DAILY [facility] Last Admin: 02/08/25 08:02 Dose: 10 mg Documented By: BIBIANA Enoxaparin Sodium (Enoxaparin Sodium 40 Mg/0.4 Ml Syringe) 40 mg SUBCUT Q24H [facility] Last Admin: 02/07/25 20:10 Dose: 40 mg Documented By: ELBERT Fenofibrate (Fenofibrate,Micronized 134 Mg Capsule) 134 mg PO BEDTIME [facility] Last Admin: 02/07/25 20:10 Dose: 134 mg Documented By: ELBERT Ferrous Sulfate (Ferrous Sulfate 324 Mg Tablet.) 324 mg PO MOWEFR [facility] Last Admin: 02/06/25 08:31 Dose: 324 mg Documented By: GARY Folic Acid (Folic Acid 1 Mg Tablet) 1 mg PO DAILY [facility] Last Admin: 02/08/25 08:02 Dose: 1 mg Documented By: BIBIANA Gabapentin (Gabapentin 300 Mg Capsule) 300 mg PO BEDTIME [facility] Last Admin: 02/07/25 20:10 Dose: 300 mg Documented By: ELBERT Glucose (Glucose Gel 15 Gm Gel..Gram.) 15 gm PO Q15M PRN; Protocol PRN Reason: per Hypoglycemia Standing Ord. Last Admin: 02/05/25 03:54 Dose: 15 gm Documented By: AUGUSTINE Guaifenesin (Guaifenesin 200 Mg/10 Ml 10 Ml Liquid) 10 ml PO Q4H PRN PRN Reason: Cough Hydromorphone HCl (Hydromorphone Hcl 0.5 Mg/0.5 Ml Syringe) 0.5 mg IVPUSH Q3H PRN; Protocol PRN Reason: Pain, Severe (Pain Scale 7-10) Last Admin: 02/07/25 22:09 Dose: 0.5 mg Documented By: ELBERT Insulin Glargine (Insulin Glargine,Hum.Rec.Anlog 100 Unit/Ml 10 Ml Vial) 5 unit SUBCUT BEDTIME [facility] Last Admin: 02/07/25 21:15 Dose: 5 unit Documented By: ELBERT Insulin Human Lispro (Insulin Lispro 100 Unit/Ml 3 Ml Vial) 0 unit SUBCUT QIDACHS [facility]; Protocol Last Admin: 02/08/25 07:30 Dose: Not Given Documented By: BIBIANA Non-Admin Reason: No Insulin Coverage Loratadine (Loratadine 10 Mg Tablet) 10 mg PO DAILY [facility] Last Admin: 02/08/25 08:03 Dose: 10 mg Documented By: BIBIANA Losartan Potassium (Losartan Potassium 25 Mg Tablet) 25 mg PO DAILY [facility]; Protocol Last Admin: 02/08/25 08:04 Dose: 25 mg Documented By: BIBIANA Magnesium Hydroxide (Milk Of Magnesia 30 Ml Oral.Susp) 30 ml PO DAILY PRN PRN Reason: Constipation Melatonin (Melatonin 3 Mg Tablet) 6 mg PO BEDTIME PRN PRN Reason: Insomnia Last Admin: 02/07/25 20:13 Dose: 6 mg Documented By: ELBERT Meropenem (Meropenem 1 Gm Vial) 1 gm IVPUSH Q8H [facility] Last Admin: 02/08/25 09:42 Dose: 1 gm Documented By: BIBIANA Mirabegron (Mirabegron 25 Mg Tab.Er.24h) 25 mg PO DAILY [facility] Last Admin: 02/08/25 08:03 Dose: 25 mg Documented By: BIBIANA Naltrexone HCl (Naltrexone Hcl 50 Mg Tablet) 50 mg PO DAILY [facility] Last Admin: 02/08/25 08:02 Dose: 50 mg Documented By: BIBIANA Omeprazole (Omeprazole 20 Mg Capsule.Dr) 20 mg PO BID@0630,1630 [facility] Last Admin: 02/08/25 06:01 Dose: 20 mg Documented By: ELBERT Ondansetron HCl (Ondansetron Hcl 4 Mg/2 Ml Vial) 4 mg IVPUSH Q8H PRN PRN Reason: Nausea and Vomiting Polyethylene Glycol (Polyethylene Glycol 3350 17 Gm Powd.Pack) 17 gm PO DAILY PRN PRN Reason: Constipation Polyethylene Glycol (Polyethylene Glycol 3350 17 Gm Powd.Pack) 17 gm PO DAILY [facility] Last Admin: 02/08/25 08:09 Dose: Not Given Documented By: BIBIANA Non-Admin Reason: loose stools Senna (Sennosides 8.6 Mg Tablet) 17.2 mg PO BEDTIME [facility] Last Admin: 02/07/25 20:12 Dose: Not Given Documented By: ELBERT Non-Admin Reason: Patient Refused Sertraline HCl (Sertraline Hcl 50 Mg Tablet) 50 mg PO DAILY [facility] Last Admin: 02/08/25 08:03 Dose: 50 mg Documented By: BIBIANA Sodium Chloride (0.9 % Sodium Chloride Flush 3 Ml Syringe) 3 ml IVFLUSH QSHIFT [facility] Last Admin: 02/08/25 08:07 Dose: 3 ml Documented By: BIBIANA Thiamine HCl (Thiamine Hcl 100 Mg Tablet) 100 mg PO DAILY [facility] Last Admin: 02/08/25 08:03 Dose: 100 mg Documented By: BIBIANA Torsemide (Torsemide 20 Mg Tablet) 10 mg PO DAILY [facility]; Protocol Last Admin: 02/08/25 08:03 Dose: 10 mg Documented By: BIBIANA Trazodone HCl (Trazodone Hcl 100 Mg Tablet) 100 mg PO BEDTIME [facility] Last Admin: 02/07/25 20:10 Dose: 100 mg Documented By: ELBERT Vitamin D (Cholecalciferol (Vitamin D3) 25 Mcg Tablet) 50 mcg PO DAILY [facility] Last Admin: 02/08/25 08:04 Dose: 50 mcg Documented By: BIBIANA Labs 02/07/25 06:33 02/07/25 06:33 Labs: Laboratory Results - last 24 hr 02/07/25 02/07/25 02/08/25 16:40 20:01 07:23 POC Glucose 131 H 151 H 86 Microbiology Microbiology Results: Microbiology 02/04/25 Unknown Urine Culture - Final Urine Catheterized - Straight Catheter Escherichia coli Assessment and Plan (1) Diabetes type 2, uncontrolled: Status: Acute (2) Toe ulcer due to DM: Status: Acute (3) Cirrhosis: Status: Acute (4) Osteomyelitis of great toe of left foot: Status: Acute Plan d5, 64yo F with CAD, HFrEF/cardiomyopathy, asthma/COPD on home O2, GERD, cirrhosis, AUD abstinent since September 2024, GERD, HTN, dyslipidemia, DM2 coming in with L great toe ulcer, pain, and swelling; found to have osteomyelitis L great toe osteomyelitis - ertapenem x6wk 02/04- [currently on meropenem, was on vanco + piperacillin-tazobactam]; will need PICC line- ordered for 02/09 - Wound Care: cleanse with saline, apply durafiber, wrap with rolled gauze, change daily and PRN E coli UTI - adequately covered by ertapenem/meropenem as above constipation: bowel regimen DM2: basal-bolus insulin, empagliflozin AUD/cirrhosis: compensated, continue naltrexone, thiamine, and folate chronic HFrEF: continue torsemide, losartan, empagliflozin neuropathy: gabapentin HLD: continue statin + fenofibrate COPD with chronic hypoxia: prn Duonebs, home O2 GERD: PPI mood disorder: sertraline VTE ppx: enoxaparin dispo: home with VNA In my clinical judgment, the patient requires continued inpatient hospitalization for the following reasons: IV ABX Total time managing care of this patient today: 35 minutes. Quality Stroke Does the patient have a stroke diagnosis?: No Reason for No Anti-thrombotic by Day Two: N/A - Med Ordered VTE Prior VTE?: No VTE Risk Level:: Medical - moderate - high VTE Device Contraindication: N/A - Device Ordered VTE Drug Contraindication: N/A - Med Ordered
[2025-02-08 11:29] LABS: Glucose, Whole Blood 164 mg/dL (60-115)
[2025-02-08 15:15] VITALS: BP 113/55; PULSE 68; RESP 16; TEMP 36.3; O2SAT 100
[2025-02-08 16:14] LABS: Glucose, Whole Blood 157 mg/dL (60-115)
[2025-02-08 19:07] VITALS: BP 134/60; PULSE 68; RESP 14; TEMP 36.4; O2SAT 100
[2025-02-08 21:13] LABS: Glucose, Whole Blood 195 mg/dL (60-115)
[2025-02-08] MEDS: Insulin Glargine,Hum.rec.anlog 100 UNIT/ML 10 ML VIAL SUBCUT (21:30)
[2025-02-08 22:30] VITALS: RESP 16
[2025-02-09 03:28] VITALS: BP 133/60; PULSE 60; RESP 18; TEMP 36.5; O2SAT 97
[2025-02-09 06:59] VITALS: BP 106/54; PULSE 62; RESP 16; TEMP 36.6; O2SAT 97
[2025-02-09 07:09] LABS: Glucose, Whole Blood 153 mg/dL (60-115)
[2025-02-09] MEDS: Calcium Oyster Shell Elemental 500 MG TABLET PO (07:55)
[2025-02-09] MEDS: 0.9 % Sodium Chloride Flush 3 ML SYRINGE IVFLUSH (07:56)
[2025-02-09] MEDS: Ferrous Sulfate 324 MG TABLET.DR PO (08:21)
--- NOTE | 2025-02-09 10:49 | P.PICC_ITS ---
PICC Line Insertion NPICC Diagnosis: Left great toe Osteomyelitis Indication: 6wks Ertapenem Pertinent Labs: reviewed Technique: Following informed consent including risks, benefits and alternatives and using sterile technique including cap and mask, sterile gown, glove and drape, the right arm was prepped and draped in the usual sterile fashion of full barrier technique with [facility]. Following completion of [place] Protocol the skin and soft tissues were anesthetized with 1% Lidocaine plain. Using ultrasound guidance, right basilic vein access was obtained. Over an 0.018 wire through peel-away sheath, a 4FR single lumen PASV PICC line was positioned. Catheter length is 37cm internal length, 0cm external length, for a total trimmed length of 37cm. The procedure was performed in 7. Tip verification was performed by Damari Alexandra with Sherlock 3CG. Tip located in SVC. Ultrasound was used to document vein patency and for needle entry. A formal ultrasound picture and cardiac rhythm strip was recorded. [employer] has released the line for use and it is currently dressed with a StatLock, Tegaderm, and CHG disc. Verification has been performed for blood return and line patency. Arm Circumference: 30cm Equipment: [employer] POWER PICC SOLOS Catheter with Sherlock 3CG tip Catheter Type: 4FR single lumen PASV Lot #: [id number]
[2025-02-09 11:26] LABS: Glucose, Whole Blood 179 mg/dL (60-115)
--- NOTE | 2025-02-09 11:31 | MHC.CM.PN ---
PICC in place. Patient medically cleared for dc after dose of ertapenem. Daughter at bedside. Had [facility] teach 02/06. Feels comfortable w/ plan. [facility] and [facility] updated. IMM delivered. will transport home and will bring portable O2.
--- NOTE | 2025-02-09 13:18 | P.F2F_ITS ---
Service Date Service Date: 02/09/25 Encounter Date of encounter: 02/09/25 Reasons for Services Signs and symptoms assessed: wound care, daily ertapenem Reason for nursing home: wound care, administration of IV, SQ, or IM injection and central line care MD Overseeing Care: Shireen Krishnan Homebound: Leaving the home is medically contraindicated at this time without the asist of a device and/or another person due th the listed conditions above and below. Reason homebound: immunosuppression / infection risk Certification: Based on the above findings, I certify that this patient is confined to the home and needs intermittent nursing home care, physical therapy and/or speech therapy, or continues to need occupational therapy. The patient is under my care, and I have initiated the establishment of the plan of care. The patient will be followed by a physician who will periodically review the plan of care. Time Spent With Patient Time: Total time managing care of this patient today ____ minutes.
--- NOTE | 2025-02-09 13:26 | PM.DS ---
DS: Providers Provider Date of Service: 02/09/25 Date of admission: 02/04/25 19:11 Date of discharge: 02/09/25 Primary care physician: Shireen Krishnan MD Consults: 02/04/25 19:14 Consult to General Surgery Routine Consulting Provider: [facility] Reason for consultation: L toe OM per Dr. Bowser Has provider been notified: No 02/04/25 20:08 Consult to Infectious Diseases Routine Consulting Provider: [facility] Reason for consultation: Left big toe osteomyelitis Has provider been notified: No Consult to Wound Care Routine Consulting Provider: [facility] Reason for consultation: Left big toe open wound with osteomyelitis DS: Diagnosis Discharge Diagnosis (1) Toe ulcer due to DM: Status: Acute (2) Diabetic osteomyelitis: Status: Acute (3) Urinary tract infection: Status: Acute DS: Summary Hospital Course Hospital Course: From the history and physical by the admitting hospitalistHelen 02/04/25: Pt is a 64-year-old Bahamian-speaking female with a history of coronary artery disease, cardiomyopathy/ HFrEF, asthma/COPD on home O2, GERD, cirrhosis, alcohol use disorder states last drink was in September 2024, history of methadone use, GERD hypertension, dyslipidemia, osteoporosis,insulin dependent diabetes with CGM with diabetic neuropathy was BIBA with complaints of L big toe pain and swelling along with possible UTI and constipation. Pt states son was using a sliver cutter at home managing pt's toe nails and skin growths that led to current symptms that started back on January 14. Pt was started on ABX as an outpatient and completed regimen but infection persisted. Pt does not routinely see a glassware selector noting she is a diabetic. Pt was evaluated via CT abd for noted constipaton with abdominal discomfort and chest x-ray that noted free air under the diaphragm. CT of the abdomen and pelvis was completed and after review by Dr. Bowser has no evidence of acute abdomen or free air patient does not have a perforated viscus.. Dr. Bowser wanted pt admitted for ABX and surgical consult for infected L big toe with indications for OM. Pt also has evidence of UTI via UA. Patient was started on vancomycin and Zosyn in the emergency department. Lactic acid normal. Patient did receive IV fluid resuscitation based on sepsis protocol, likely does not meet criteria as patient has no leukocytosis and is not hypotensive, tachycardic or hypoxic noting patient is normally on oxygen at home. ESR and CRP are both elevated. Blood gas 7.52, 42, 42, 35. BNP 417. Troponin flat. COVID and influenza were negative. Patient received Dilaudid for pain. 64yo F with CAD, HFrEF/cardiomyopathy, asthma/COPD on home O2, GERD, cirrhosis, AUD abstinent since September 2024, GERD, HTN, dyslipidemia, DM2 coming in with L great toe ulcer, pain, and swelling; found to have osteomyelitis and admitted to the medical-surgical unit treated initially with vancomycin and piperacillin-tazobactam, then meropenem. Not bacteremic. ID and Wound Care consulted. Plan total 6 wk IV antibiotics; PICC placed 02/09 and pt discharged on ertapenem with home infusion/VNA services, end date 03/18. Wound Care recommended cleanse with saline, apply durafiber, wrap with rolled gauze, change daily and PRN ; pt should follow up with [facility] [place] 1 week and [facility] in 2 weeks. Also found to have E. coli UTI, adequately covered by ertapenem/meropenem as above. Time Attestation Discharge Coordination Time (in mins): 45 Quality: Safe Use of Opioids Does Pt have an Active Cancer Diagnosis on the Problem List?: No Quality: Stroke Does the patient have a stroke diagnosis?: No Physical Exam Vital Signs: Vital Signs: Last Vital Signs Temp 97.9 F 02/09/25 06:59 Pulse 62 02/09/25 06:59 Resp 16 02/09/25 06:59 BP 106/54 L 02/09/25 06:59 Pulse Ox 97 02/09/25 06:59 O2 Del Method Room Air 02/09/25 06:59 O2 Flow Rate 2 02/09/25 03:28 Oxygen Flow Rate 2 02/04/25 15:11 BMI result Body Mass Index 23.1 DS: Data Data Completed and Pending Completed studies during hospitalization [Text1]: Procedures Extraction of Endometrium, Via Natural or Artificial Opening, Diagnostic (11/11/24) Labs on day of discharge: Laboratory Results - last 24 hr 02/08/25 02/08/25 02/09/25 16:02 20:03 06:58 POC Glucose 157 H 195 H 153 H 02/09/25 11:22 POC Glucose 179 H Preliminary micro results at discharge 02/04/25 16:45 Blood Culture - Preliminary Blood - Venous No growth after 48 hours. 02/04/25 16:45 Blood Culture - Preliminary Blood - Venous No growth after 48 hours. Discharge Plan Discharge Anticipated Discharge Date/Time: 02/09/25 13:19 Patient Disposition: Home Health Service Discharge Diagnosis: osteomyelitis of toe Referrals: [facility] [Other] - 1 Week Referral Note: [facility] will deliver your IV antibiotics [facility] [Provider Group] - 1 Week [facility] [Outside] - 1 Day Referral Note: [facility] call you to schedule home nursing appointments Patricia Bolden MD [Physician, Infectious Disease] - 2 Weeks Shireen Stout MD [Primary Care Provider, Internal Medicine] - 1 Week Discharge Medications: New ertapenem 1 gram recon soln 1 g IV DAILY Continued (DME) blood-glucose meter [FreeStyle Vickery Lite] Kit See Rx Instructions .Route Qty: 1 0RF Rx Instructions: As directed atorvastatin 40 mg tablet 40 mg PO BEDTIME cetirizine 10 mg tablet 10 mg PO DAILY naltrexone 50 mg tablet 50 mg PO DAILY thiamine HCl (vitamin B1) 100 mg tablet 100 mg PO DAILY fenofibrate micronized 134 mg capsule 134 mg PO BEDTIME folic acid 1 mg tablet 1 mg PO DAILY Linzess 72 mcg capsule 72 mcg PO DAILY torsemide 10 mg tablet 10 mg PO DAILY trazodone 100 mg tablet 100 mg PO BEDTIME gabapentin 300 mg capsule 300 mg PO BEDTIME insulin glargine [Lantus Solostar U-100 Insulin] 100 unit/mL (3 mL) insulin pen 30 unit subcut BEDTIME cholecalciferol (vitamin D3) [Vitamin D3] 50 mcg (2,000 unit) capsule 50 mcg PO DAILY Jardiance 10 mg tablet 10 mg PO DAILY calcium carbonate [Oyster Shell Calcium 500] 500 mg calcium (1,250 mg) Tablet 500 mg PO BID (DME) lancets [FreeStyle Lancets] 28 gauge misc See Rx Instructions .ROUTE .MEDSUPPLY Qty: 100 Rx Instructions: As directed sertraline [Zoloft] 50 mg tablet 50 mg PO DAILY (DME) FreeStyle Test Strip See Rx Instructions .ROUTE .MEDSUPPLY Qty: 150 6RF Rx Instructions: 4 times a day (DME) lancets [TRUEplus Lancets] 33 gauge misc See Rx Instructions .ROUTE BID Qty: 100 Rx Instructions: As directed pantoprazole 20 mg tablet,delayed release (DR/EC) 20 mg PO BID@0630,1630 (DME) FreeStyle Lakeisha 2 Sensor Kit See Rx Instructions .Route Rx Instructions: every 14 days (DME) FreeStyle Lakeisha 2 [place] Misc See Rx Instructions .Route Rx Instructions: As directed losartan 25 mg tablet 25 mg PO DAILY (DME) blood pressure test kit-large Kit See Rx Instructions .ROUTE DIRECTED Qty: 1 Rx Instructions: As directed (DME) pen needle, diabetic [BD Ultra-Fine Debbie Pen Needle] 32 gauge x 5/32 needle See Rx Instructions .ROUTE BID Qty: 50 Rx Instructions: As directed once a day Myrbetriq 25 mg tablet extended release 24 hr 25 mg PO DAILY (DME) Oxygen Home Use Kit See Rx Instructions .Route Rx Instructions: As directed (DME) nebulizers Mis See Rx Instructions .Route Rx Instructions: As directed ferrous sulfate [FeroSul] 325 mg (65 mg iron) tablet 325 mg PO MOWEFR Discharge Orders: Discharge Order (Routine); Ordered 02/09/25 Ordered By: Dylan Adams Diet: Diabetic diet Activity on Discharge: As tolerated Stand Alone Forms: Patient Portal Discharge page Print Language: Bahamian Care Plan Goals: cure infection Health Concerns: osteomyelitis of toe Plan of Treatment: Ertapenem 1 gram IV daily via PICC until 03/18/25 then remove PICC follow up with [facility] in 2 wk [Dr Bolden] Wound Care: cleanse with saline, apply durafiber, wrap with rolled gauze, change daily and PRN follow up with [facility] in 1 wk Please follow up with your primary care doctor within 1 week. Return to the hospital if you experience recurrent or worsening symptoms. Assessment: See Discharge Summary.
== END 2025-02-09 13:54 | disposition home health service (06) | DRG 638 ==
LOC: HO.ED 19:16 → HO.EDOVER 19:20 → HO.S3 19:25
PROVIDERS: Internal Medicine; Student in an Organized Health Care Education/Training Program; Admitting Provider Nurse Practitioner Family; Emergency Provider Emergency Medicine Emergency Medical Services; PCP Student in an Organized Health Care Education/Training Program; Visit Provider Family Medicine
DX: E11.69 Type 2 diabetes mellitus with other specified complication (principal); I42.9 Cardiomyopathy, unspecified; I50.22 Chronic systolic (congestive) heart failure; M86.172 Other acute osteomyelitis, left ankle and foot; K76.6 Portal hypertension; L03.116 Cellulitis of left lower limb; N39.0 Urinary tract infection, site not specified; E11.621 Type 2 diabetes mellitus with foot ulcer; I25.10 Atherosclerotic heart disease of native coronary artery without angina pectoris; E11.40 Type 2 diabetes mellitus with diabetic neuropathy, unspecified; F10.91 Alcohol use, unspecified, in remission; D73.2 Chronic congestive splenomegaly; J44.9 Chronic obstructive pulmonary disease, unspecified; B96.20 Unspecified Escherichia coli [E. coli] as the cause of diseases classified elsewhere; E11.649 Type 2 diabetes mellitus with hypoglycemia without coma; K21.9 Gastro-esophageal reflux disease without esophagitis; K70.30 Alcoholic cirrhosis of liver without ascites; K59.00 Constipation, unspecified; L97.529 Non-pressure chronic ulcer of other part of left foot with unspecified severity; Z99.81 Dependence on supplemental oxygen; Z20.822 Contact with and (suspected) exposure to COVID-19; Z79.4 Long term (current) use of insulin; Z87.891 Personal history of nicotine dependence; Z79.899 Other long term (current) drug therapy
CPT/HCPCS: 36415; 36573; 71045; 73630; 74177; 80048; 80053; 80076; 80202; 81001; 82565; 82803; 82947; 83036; 83605; 83690; 83880; 84484; 85025; 85610; 85652; 85730; 86140; 86850; 86900; 86901; 87040; 87086; 87088; 87186; 87502; 87635; 93005; 99285; C1751; J1171; J1200; J1335; J1650; J2185; J2543; J3374; Q9967

== ENCOUNTER → 2025-02-04 15:35 | Outpatient (BNV) | payer OTHER, SELFPAY | PROVIDERS: Emergency Provider Emergency Medicine Emergency Medical Services; Visit Provider Radiology Diagnostic Radiology | DX: R16.1 Splenomegaly, not elsewhere classified (principal); D73.89 Other diseases of spleen; N85.9 Noninflammatory disorder of uterus, unspecified; R06.02 Shortness of breath; Z04.3 Encounter for examination and observation following other accident | CPT/HCPCS: 71045; 73630; 74177 ==

== ENCOUNTER → 2025-02-04 17:05 | Outpatient (BNV) | payer OTHER, SELFPAY | PROVIDERS: Admitting Provider Nurse Practitioner Family; Emergency Provider Emergency Medicine Emergency Medical Services; PCP Student in an Organized Health Care Education/Training Program; Visit Provider Internal Medicine | DX: R94.31 Abnormal electrocardiogram [ECG] [EKG] (principal); R07.9 Chest pain, unspecified | CPT/HCPCS: 93010 ==

== ENCOUNTER → 2025-02-04 19:11 | Outpatient (BNV) | payer OTHER, SELFPAY | PROVIDERS: Admitting Provider Nurse Practitioner Family; Emergency Provider Emergency Medicine Emergency Medical Services; PCP Student in an Organized Health Care Education/Training Program; Visit Provider Nurse Practitioner Family | DX: E11.65 Type 2 diabetes mellitus with hyperglycemia (principal); E11.621 Type 2 diabetes mellitus with foot ulcer; L97.529 Non-pressure chronic ulcer of other part of left foot with unspecified severity; K74.60 Unspecified cirrhosis of liver; M86.9 Osteomyelitis, unspecified; N39.0 Urinary tract infection, site not specified | CPT/HCPCS: 99223; 99232; 99499 ==

== ENCOUNTER → 2025-02-04 19:11 | Outpatient (BNV) | payer OTHER, SELFPAY | PROVIDERS: Admitting Provider Nurse Practitioner Family; Emergency Provider Emergency Medicine Emergency Medical Services; PCP Student in an Organized Health Care Education/Training Program; Visit Provider Internal Medicine | DX: E11.621 Type 2 diabetes mellitus with foot ulcer (principal); L97.529 Non-pressure chronic ulcer of other part of left foot with unspecified severity | CPT/HCPCS: 99222 ==

== ENCOUNTER → 2025-02-04 19:11 | Outpatient (BNV) | payer OTHER, SELFPAY | PROVIDERS: Admitting Provider Nurse Practitioner Family; Emergency Provider Emergency Medicine Emergency Medical Services; PCP Student in an Organized Health Care Education/Training Program; Visit Provider Physician Assistant Surgical | DX: E11.621 Type 2 diabetes mellitus with foot ulcer (principal); L97.509 Non-pressure chronic ulcer of other part of unspecified foot with unspecified severity; R93.3 Abnormal findings on diagnostic imaging of other parts of digestive tract | CPT/HCPCS: 99222; 99232 ==

== ENCOUNTER 2025-02-18 10:56 | Outpatient (AMB) | payer OTHER, SELFPAY ==
--- OUTSIDE RECORDS SUMMARY | 2024-11-19 11:16 | XMS_ITS | Continuity of Care Document ---
Author Organization [facility] Address [address] [place] [id number] Phone Care Team Providers Care Bobbin Drier Name Role Phone Wilian ANTHONY, Tierney Unavailable Unavailable Allergies, Adverse Reactions, Alerts Substance [...] Clini pako Status Comments No Known Problems Advance Directives Directive Yes / No Effective Date File Name No Information Encounters Encounter Description Practice Location Reason(s) For Visit Diagnoses Date Provider [facility], [address] [place] [address], [id number], tel: [phone] [facility] [place] No Information 5 Wilian Monet. [address] [place] [address], [id number], [place]. tel: [phone] [facility], [address] [place] [address], [id number], [place] tel: [phone] [facility] [place] Abnormal mammogram 7 [facility] Tower Operator. [facility] [place], [address], [place]. tel: [phone] [facility], [address] [place] [address], [id number], [place] tel: [phone] [facility] [place] colon cancer screen (chief complaint)h ypertension (chief complaint)p ap test (chief complaint)m ammogram (chief complaint) Encounter for screening for respiratory tuberculosisBody mass index (BMI) 40.0-44.9, adultCervical cancer screeningOther screening mammogramColon cancer screeningBorderline systolic HTN 7 Osuji Nonyerem. [address], [place], [place], [facility], [place]. tel: [phone] [facility], [address], [place], [place], [id number], [place] tel: [phone] [facility] [place] No Information 7 [facility]. [address] [place], [address], [place]. tel: [phone] [facility], [address], [place], [place], [id number], tel: [phone] [facility] [place] General follow up (chief complaint)h ypertension (chief complaint)d iabetes/thy roid screen (chief complaint)m ammogram (chief complaint) Body mass index (BMI) 38.0-38.9, adultBorderline systolic HTNScreening for diabetes mellitusScreening for thyroid disorderOther screening mammogram 7 Osuji Nonyerem. [address], [place], [place], [facility], [place]. tel: [phone] [facility], [address], [place], [place], [id number], [place] tel: [phone] [facility] [place] No Information 6 Osuji Nonyerem. [address], [place], [facility], [place]. tel: [phone] [facility], [address], [place], [place], [id number], [place] tel: [phone] [facility] [place] Physical (chief complaint)p reventive exam (chief complaint)r josiah (chief complaint)B P check (chief complaint) Body mass index (BMI) 40.0-44.9, adultEncounter for preventative adult health care exam with abnormal findingsScreening for diabetes mellitusScreening for thyroid disorderElevated blood-pressure reading, without diagnosis of hypertensionPsoriasis 6 Wilian Guzmanmattie. [address] [place], [address], [place]. tel:[phone] Family History Family Member Type Diagnosis Age At Onset No Information Payers Payer name Insurance type Covered alliance party ID Authoriza tion(s) No Information Social History Type Description Quantity Date Captured Comments Sex Female Smoking Status No Information Gender Identity Female Chief Complaint And Reason For Visit No Information Plan Of Treatment Date Type Action Status Goal Tdap. Due on due Goal MMR Vaccine. Due on due Goal Td vaccine. Due on due Goal Flu Vaccine. Due on due Goal FOBT. Due on due Goal MMR Vaccine. Due on due Goal Flu Vaccine. Due on due Goal Tdap. Due on due Goal Td vaccine. Due on due Goal FOBT. Due on due Goal Dietary manageme nt education, guidance, and counseling completed Goal Colonoscopy. Due on due Goal Td vaccine. Due [...] vision Physical Instructions Date Instruction Additional Infor mation DASH DIET/LOW SALT D IET encouraged. BP [...] Related to Scree janice for diabetes mellitus Dietary management e ducation, [...] (BMI) 40.0-44.9, adult A1c today... Related to Scree janice for diabetes mellitus check labs and HIV [...]
--- NOTE | 2025-02-18 11:00 | A.OFFVIS_ITS ---
Vital Signs 02/18/25 11:05 Height 5 ft Weight 139 lb BMI 27.1 BP 96/54 L Intake Visit Reasons: CT scan follow up Division Human Resources Manager Required: Yes Division Human Resources Manager Language: Anesthesiologist/Physician Services: Division Human Resources Manager Present (in person) Division Human Resources Manager Name: Roula HERNÁNDEZ Information Interpreted: non-clinical & clinical Accompanied by: Daughter Allergies cornflower (Cornflower) Allergy (Unknown, Verified 02/18/25 11:07) ITCHY EYES/HIVES peach (PEACH) Allergy (Unknown, Verified 02/18/25 11:07) NATURAL FRUIT - MOUTH ITCHES cornell (cherries) Allergy (Verified 02/18/25 11:07) Unknown morphine Allergy (Verified 02/18/25 11:07) Itching apples Allergy (Unknown, Uncoded 02/18/25 11:07) Unknown peanut Allergy (Unknown, Uncoded 02/18/25 11:07) Unknown Post menopausal: Yes HPI Comments Details: Presenting for CT follow-up, no complaints, no pelvic pain or pressure or vaginal bleeding 02/04/2025 CT scan done in the emergency room, pelvic portion showed the following: ... Stable 3.2 x 3.8 cm low-attenuation lesion in the uterus. 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 This could be further evaluated with pelvic MRI if clinically warranted... 01/23/2025 pelvic ultrasound showed the following: Uterus: The uterus is normal in size, measuring 7.5 x 4.5 x 5.2 cm. There is an echogenic mass in the anterior aspect of the uterine body measuring 2.6 x 3.3 x 3.8 cm causing posterior shadowing. On additional review of the prior CT scan, there are no tiny foci of fat attenuation within the mass. 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 Endometrium: The endometrial stripe measures 3 mm in thickness. Right ovary: The right ovary measures 1.6 x 1.0 x 1.4 cm. The right ovary is normal in size and echotexture. Left ovary: The left not identified. Pelvic fluid: There is trace fluid in the cul-de-sac.. 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 11/12/2024 pelvic ultrasound showed the following: 'Uterus: The uterus is normal in size, measuring 7.7 x 3.5 x 5.7 cm. Myometrium has a normal echotexture. No fibroids are identified. Endometrium: There is an echogenic mass within the uterus measuring 3.7 x 2.5 x 3.8 cm. Right ovary: The right ovary measures 1.4 x 0.9 x 1.4 cm. The right ovary is normal in size and echotexture. Left ovary: The left ovary is not identified. Pelvic fluid: none. 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 Diabetes type 2, uncontrolled Surgical History Status post biopsy of thyroid gland History of colonoscopy (~2016) Hx of cataract extraction History of esophagogastroduodenoscopy (EGD) (~2020) Hx of cardiac cath (~12/2015) Hx of cholecystectomy (~1980) History of bladder surgery (~06/2019) Family History Father Esophageal cancer Mother Diabetes mellitus HTN (hypertension) Social History Household Members: Spouse Housing: Apartment Do you presently have visiting nurse or other home services: Yes (MORTGAGE OPERATIONS MANAGER services.) Alcohol intake: former Patient Tobacco Use Status: Former Tobacco user Tobacco use type: Cigarette Years Smoked: Onset 27, 2ppd x 24yrs, 48pyh, quit 11/2012 Advance Directives Date on File: 02/28/21 service: No Review of Systems Const All systems reviewed & are unremarkable except as noted in HPI and below Reports as per HPI and Reports no additional complaints GI Reports no additional complaints Reports no additional complaints Physical Exam Vital Signs: Last Vital Signs BP 96/54 L 02/18/25 11:05 BMI result Body Mass Index 27.1 Assessment & Plan Assessment & Plan (1) Uterine mass: Code(s): N85.8 - Other specified noninflammatory disorders of uterus Category: Medical Plan: Discussed with the patient the finding on to previous pelvic ultrasound and CT scan, recommended pelvic MRI for further evaluation. Instructions given the patient is schedule an MRI and a follow-up appointment within 2 weeks. All questions answered, the patient verbalized understanding. Orders: Orders MR pelvis wo/w con Today N85.8 - Other specified noninflammatory disorders of uterus Blood Urea Nitrogen Today N85.8 - Other specified noninflammatory disorders of uterus Creatinine Today N85.8 - Other specified noninflammatory disorders of uterus Coding Level of Care Code Est Pt Level 3 (11391) Diagnoses Uterine mass N85.8
[2025-02-18 11:05] VITALS: BP 96/54; BMI 27.1
--- OUTSIDE RECORDS SUMMARY | 2025-02-18 13:23 | XMS_ITS | Data Portability ---
Author Organization [employer] Address [address] [place] [phone] Care Team Providers Care Horticultural Services Supervisor Name Role Phone Unavailable OTHER HIM CCA OTHER Assessment Encounter Date Assessment Date Assessment LastModified by Organization Details LastModified Time 09/24/2024 09/24/2024 As noted, we were called to see this patient regarding concerns of confusion. Evaluation in the field was performed by my practicing md anesthesiologist colleague, as noted above, I provided real-time [...] is to transfer to the ER at [facility]. I called a quick report to the ER there. I discussed that she has a history of cirrhosis. She may need an ammonia level. She will also need CT scanning of the brain and further work up. Impression: acute confusion Plan: 1) transfer to the ER at [facility] Primary care, consider f/u er visit Disposition: to er [email or web address] Not available 09/24/2024 13:06:58 12/04/2024 12/04/2024 I provided real -time medical direction via phone for this encounter and was available for additional phone-based assistance as needed. I have reviewed and agree with the Assessment and Plan as documented by the C Application Developer. Patient given the opportunity to ask questions. Our service contacted for an assessment of: Urinary symptoms As per above, patient with approximately 24 hours of dysuria, frequency. No history of frequent urinary tract infections however recently had one that responded well to cefpodoxime. Denies fever, chills, abdominal pain, back pain, flank pain. Per practicing md anesthesiologist on the scene, Vital signs are stable [...] None recorded. Lab urinalysis, dipstick 2024 025 [facility], [address] [place] [address], [id number] 11:45:52 Referral None recorded. Procedures None recorded. Surgeries None recorded. Imaging None recorded. Medication Orders levofloxaci n 500 mg tablet 2024 025 [facility], [address] [place] [address], [id number], 05:01:22 levofloxaci n 500 mg tablet 2024 025 [facility], [address] [place] [address], [id number], 05:01:22 Patient TargetsNo targets recorded. Patient InstructionsNo [...] Name and Address Organization Details Recorded Time 52305 Product containin g angiotens in-conver ting enzyme inhibitor (product) medicatio n Not available Not available Not available 09/24/2024 37169 009 SNOMED Not Available [facility] - production 5 11:43:34 99100 cornell allergeni c extract food,medi cation Not available Not available Not available 12/03/2024 88463 1 RxNorm Not Available [facility] 5 17:34:23 52985 peanut allergeni c extract food,medi cation Not available Not available Not available 12/03/2024 29853 8 RxNorm Not Available [facility] 17:34:23 Medications Name Sig Start [...] % 2 L/min 170/90 mm[Hg] Not Available [email or web address] - production 12:35:39 Date Recorded Respiratory rate Body temperature Body height Body weight Heart rate Oxygen saturation Oxygen saturation in Arterial blood by Pulse oximetry Systolic And Diastolic Provider Name and Address Organization Details Last Updated DateTime 5 14 /min 98.4 [degF] 157.48 cm 61499.8 g 64 /min 95 % 95 % 112/54 mm[Hg] Not Available [email or web address] - production 09:17:38 Social History None recorded. Functional Status None recorded. Mental Status None recorded. Family History Nothing Reported. Medical History No medical history recorded. Gynecological HistoryNo gynecological history recorded. Obstetrics History GPAL:G 0 P 0 0 0 0 Past Encounters Encounter ID Performer Location Encounter Start Date Encounter Closed Date Diagnosis/Indication Diagnosis SNOMED-CT Code Diagnosis ICD10 Code Diagnosis IMO Codes Diagnosis Note [id number] RANDOLPH SO MD [address] [phone] 09/24/2024 12:35:35 09/29/2024 14:31:59 Altered mental status 085116652 R41.82 [id number] Bria Shook MD [address] [phone] 12/04/2024 09:09:47 12/05/2024 12:18:07 Urinary system finding [id number] R39.9 [id number] Health Concerns Section Related Observation LastModified by Organization Detai ls LastModified Time None Recorded Concern Status LastModified by Organization Details LastModified Time None Recorded Advance Directives Directive None Recorded Payers Insurance Date Sequence Insurance Name Policy Number Policy Muro Covered Member ID Muro Member ID Guarantor Name 12/04/2024 1 [facility] - DOS ON OR AFTER 2022 - DUAL ELIGIBLE - [employer] OPTIONS AND ONE CARE (MEDICARE REPLACEMENT/ADV ANTAGE - HMO) Shireen Tavarez [id number] Shireen Tavarez Notes Date Note Type Note Provider Name and Address Organization Details Recorded Time 09/24/2024 text/html ROS as noted in the HPI HPI: Patient Daughter called as [place] fell [place] [facility] [place] Fell from seated walker to ground found to have been hypoxic. Daughter concerned as Mom seems off O2Sat at time of call on 02 @1.5LPM + 95%.All imaging at time of fall Negative. No urinary complaints. .................... .................... .................... .................... .................... .................... .................... . [facility] Nurse Triage Notes (Haylie Resendiz): Reason For Request: Fall Chief Complaints: Falls PMH: Asthma, Chronic Kidney Disease, Cirrhosis, Diabetes Mellitus Type 2, Food Allergies, Hypertension PMH Reviewed at 09/24/2024:43 Allergies Reviewed at 09/24/2024:43 Comments: HPI reviewed Food allergies: Apple juice cornell prunus persica, PB flavoring .................... .................... .................... .................... .................... .................... .................... . C Application Developer Note From Ming Mercer: Dispatched to the [...] suppose to be doing. Pt was assessed. [facility] consulted. Pt advised to return to the ED for imaging. Family advised they would drive her as it was only a couple of minutes down the road. Family advised that I could call for an ambulance for her but they advised they would take her now. Red flags discussed. ALL times are approx. .................... .................... .................... .................... .................... .................... .................... . [facility] Consulted: Randolph So .................... .................... .................... .................... .................... .................... .................... . Disposition: Fulfilled Kavitha Retana MD [address] [facility],[address], [place], [phone], ALFRED Gallegos ALINEMICHELLE KNAPP 09/29/2024 10:11:22 12/04/2024 [...] request from initial triage -Maureen Ramirez RN C Application Developer Organization Information for Raoul Cardozo [employer] Name: [facility] Address: [address] [place] [address], Narrow Gauge Brakeman: Santiago Franz MD CLIA No.: [id number] C Application Developer POC Test Results from Raoul Cardozo - ALS Urine Dipstick (09:17:49) Urine leukocytes: +++VANDANA Urine nitrites: ++NIT Urine urobilinogen: -URO Urine protein: 0.2PRO Urine pH: 5.5pH Urine blood: -BLO Urine specific gravity: 1.005SG Urine ketones: -KET Urine bilirubin: -RADHA Urine glucose: ++GLU Blood Glucose Measurement (09:22:17) Blood Glucose: 257mg/dL .................... .................... .................... .................... .................... .................... .................... . C Application Developer Note From Raoul Cardozo: Patient alert and [...] as ordered without complication, using five rights., [facility] [place] prescribe more to patient s local pharmacy. Patient reports she has PCP appointment tomorrow. Red flags patient education discussed. Patient and caregiver demonstrating understanding of care and plan. Patient given an opportunity to ask questions. [facility] Lab Orders: urinalysis, dipstick: Performed .................... .................... .................... .................... .................... .................... .................... . [facility] Consulted: Bria Shook .................... .................... .................... .................... .................... .................... .................... . Disposition: Fulfilled Bria Shook MD [address] [facility],[address] [facility], [place], [phone], [employer] 12/04/2024 10:48:59 OBGyn Episode No OBEpisode recorded.
--- OUTSIDE RECORDS SUMMARY | 2025-02-18 13:23 | XMS_ITS | Clinical Summary ---
Author Organization [address] [facility] Address [address] [place] [address] Phone Care Team Providers Care Rug Receiving Clerk Name Role Phone Pranav Stout MD Primary Care Pro vider Allergies Active Allergy Reactions Criticality Noted Date Comments Jimmy Inhibitors 11/02/2023 Apple 11/02/2023 Romero 11/02/2023 Travis (Prunus Persica) 11/02/2023 Peanut 11/02/2023 Medications albuterol [...] Care Team (Late st Contact Info) Description 04/15/2025 10:15 AM EST Office Visit Orthopedic Surgery - [facility] [address] [phone] Herson Fitzgerald, DPM [address] [phone] Health Maintenance Due Date Last Done Comments [...] Annual BMP Blood Test 06/18/2024 COVID-19 Vaccine ( season) 2024 03/05/2024, 06/07/2023, [...] complete this topic Insurance MEDICAID - [place] [facility] MEDICAID Care Teams Rug Receiving Clerk Relationship Specialty Start Date End Date Pranav Stout MD [address] [phone] PCP - General 08/16/23
== END 2025-02-18 11:35 | disposition home or self-care (01) ==
LOC: HO.HWS 10:57
PROVIDERS: PCP Student in an Organized Health Care Education/Training Program; Visit Provider Obstetrics & Gynecology
DX: N85.8 Other specified noninflammatory disorders of uterus (principal)
CPT/HCPCS: 99213

== ENCOUNTER 2025-02-18 10:56 | Outpatient (REF) | payer OTHER, SELFPAY ==
[2025-02-18 13:00] LABS: Blood Urea Nitrogen 12 mg/dL (9-16); Estimated Glomerular Filt Rate > 60
--- OUTSIDE RECORDS SUMMARY | 2025-02-18 14:36 | XMS_ITS | Encounter Summary ---
Author Organization [employer] Address [address] [facility] 7t [place] [address] Care Team Providers Care Companion Caregiver Name Role Phone Shireen Stout MD Primary Care Pro vider Reason for Visit * Reason Onset Date Comments Referral 01/22/2025 Encounter Details Date Type Department Care Team ([facility] st Contact Info) Description 01/22/2025 Telephone [facility] [address] [place] [address] Shireen Stout MD [address] [place] [address] Referral Social History Tobacco Use Types Packs/Day [...] Tc from Noelle requesting a referral for maritime guard Contact Noelle at [phone] documented in this encounter Plan of Treatment Upcoming Encounters Date Type Department Care Team (Late st Contact Info) Description 02/25/2025 10:15 AM EST Office Visit [facility] [address] [place] [phone] Shireen Stout MD [address] [place] [phone] 03/17/2025 11:00 AM EST Office Visit [facility] [address] [place] [address] Rhoda Melvin CNM [address] [place] [address] documented as of this encounter Visit Diagnoses Not on filedocumented in this encounter Additional Health Concerns Assessment Noted Time PHQ-9 Depression Total Score: 11 08/21/ 025 9:44 AM EDT documented as of this encounter Care Teams Companion Caregiver Relationship Specialty Start Date End Date Shireen Stout MD [address] [place] [address] PCP - General Internal Medicine 09/08/22 [facility] 12/01/24 documented as of this encounter
--- OUTSIDE RECORDS SUMMARY | 2025-02-18 14:36 | XMS_ITS | Patient Health Record ---
Author Organization [facility] Address [address] [place] [address] Care Team Providers Care Operations And Intelligence Assistant Name Role Phone Víctor Euceda Jr [phone] Reason For Referral No Information Plan Of Treatment No Information
--- OUTSIDE RECORDS SUMMARY | 2025-02-18 14:36 | XMS_ITS | Encounter Summary ---
Author Organization [email or web address] Address [address] [place] [address] 7t [place] [address] Care Team Providers Care Physical Therapy Coordinator Name Role Phone Shireen Stout MD Primary Care Pro vider Reason for Visit * Reason Comments Med Refill Encounter Details Date Type Department Care Team (Late st Contact Info) Description 01/10/2023 Refill [facility] [address] [place], [place] [phone] Tonja Guzmán, DIMAS Pulmonary emphysema, unspecified emphysema [...] Description 02/25/2025 10:15 AM EST Office Visit [facility] [address] [place] [address] Shireen Stout MD [address] [place] [address] 03/17/2025 11:00 AM EST Office Visit [facility] [address] [place] [address] Rhoda Melvin CNM [address] [place] [address] documented as of this encounter Visit Diagnoses Diagnosis Pulmonary emphysema, unspecified emphysema type documented in this encounter Additional Health Concerns Assessment Noted Time PHQ-9 Depression Total Score: 5 12/16/19 23 2:02 PM EDT documented as of this encounter Care Teams Physical Therapy Coordinator Relationship Specialty Start Date End Date Shireen Stout MD [address] [place] [address] PCP - General Internal Medicine 09/08/22 [facility] 09/22/24 12/28/24 [facility] 12/01/24 documented as of this encounter
--- OUTSIDE RECORDS SUMMARY | 2025-02-18 14:36 | XMS_ITS | Encounter Summary ---
Author Organization [employer] Address [address] [facility] 7t [place] [address] Care Team Providers Care Multimedia Journalist Name Role Phone Shireen Stout MD Primary Care Pro vider Reason for Visit * Reason Comments Med Refill Encounter Details Date Type Department Care Team (Late st Contact Info) Description 01/16/2023 Refill [facility] [address] [place], [place] [phone] Shireen Stout MD [address] [place] [address] Social History Tobacco Use Types Packs/Day Years [...] 10:15 AM EST Office Visit [facility] [address] [place] [address] Shireen Stout MD [address] [place] [address] 03/17/2025 11:00 AM EST Office Visit [facility] [address] [place] [address] Rhoda Melvin CNM [address] [place] [phone] documented as of this encounter Visit Diagnoses Not on filedocumented in this encounter Additional Health Concerns Assessment Noted Time PHQ-9 Depression Total Score: 5 12/16/19 23 2:02 PM EDT documented as of this encounter Care Teams Multimedia Journalist Relationship Specialty Start Date End Date Shireen Stout MD [address] [place] [phone] PCP - General Internal Medicine 09/08/22 [facility] 09/22/24 12/28/24 [facility] 12/01/24 documented as of this encounter
--- OUTSIDE RECORDS SUMMARY | 2025-02-18 14:36 | XMS_ITS | Encounter Summary ---
Author Organization [employer] Address [address] [facility] 7t [place] [address] Care Team Providers Care Chief I Dispatcher Name Role Phone Shireen Stout MD Primary Care Pro vider Reason for Visit * Reason Comments Med Refill Encounter Details Date Type Department Care Team (Late st Contact Info) Description 01/16/2023 Refill [facility] [address] [place] [address] Tonja Guzmán FNP Social History Tobacco Use [...] Description 02/25/2025 10:15 AM EST Office Visit [facility] [address] [place] [phone] Shireen Stout MD [address] [place] [address] 03/17/2025 11:00 AM EST Office Visit [address] [address] Rhoda Melvin CNM [address] [place] [address] documented as of this encounter Visit Diagnoses Not on filedocumented in this encounter Additional Health Concerns Assessment Noted Time PHQ-9 Depression Total Score: 5 12/16/19 23 2:02 PM EDT documented as of this encounter Care Teams Chief I Dispatcher Relationship Specialty Start Date End Date Shireen Stout MD [address] [place] [phone] PCP - General Internal Medicine 09/08/22 [facility] 09/22/24 12/28/24 [facility] 12/01/24 documented as of this encounter
--- OUTSIDE RECORDS SUMMARY | 2025-02-18 14:36 | XMS_ITS | Encounter Summary ---
Author Organization [employer] Address [address] [facility] 7t [place] [address] Care Team Providers Care Director Engineering Name Role Phone Shireen Stout MD Primary Care Pro vider Reason for Visit * Reason Comments Med Refill Encounter Details Date Type Department Care Team (Late st Contact Info) Description 01/16/2023 Refill [facility] [address] [place], [place] [phone] Shireen Stout MD [address] [place] [address] Social History Tobacco Use Types Packs/Day Years [...] Office Visit [facility] [address] [place] [phone] Shireen Stout MD [address] [place] [address] 03/17/2025 11:00 AM EST Office Visit [facility] [address] [place] [address] Rhoda Melvin CNM [address] [place] [phone] documented as of this encounter Visit Diagnoses Not on filedocumented in this encounter Additional Health Concerns Assessment Noted Time PHQ-9 Depression Total Score: 5 12/16/19 23 2:02 PM EDT documented as of this encounter Care Teams Director Engineering Relationship Specialty Start Date End Date Shireen Stout MD [address] [place] [address] PCP - General Internal Medicine 09/08/22 [facility] 09/22/24 12/28/24 [facility] 12/01/24 documented as of this encounter
--- OUTSIDE RECORDS SUMMARY | 2025-02-18 14:36 | XMS_ITS | Encounter Summary ---
Author Organization [employer] Address [address] [facility] 7t [place] [address] Care Team Providers Care Manager Sales And Marketing Name Role Phone Shireen Stout MD Primary Care Pro vider Encounter Details Date Type Department Care Team ([facility] st Contact Info) Description 01/08/2025 Telephone [facility] MEDICINE [address] [place], [place] [phone] Shireen Stout MD [address] [place], [place] [phone] Social History Tobacco Use Types Packs/Day Years [...] - 01/08/2025 4:37 PM EDT Tc from [place] with [facility] requesting status on face to face documents. documented in this encounter Plan of Treatment Upcoming Encounters Date Type Department Care Team (Late st Contact Info) Description 02/25/2025 10:15 AM EST Office Visit [facility] MEDICINE [address] [place] [phone] Shireen Stout MD [address] [place] [phone] 03/17/2025 11:00 AM EST Office Visit [facility] MEDICINE [address] [place] [phone] Rhoda Melvin CNM [address] [place] [phone] documented as of this encounter Visit Diagnoses Not on filedocumented in this encounter Additional Health Concerns Assessment Noted Time PHQ-9 Depression Total Score: 11 025 9:44 AM EDT documented as of this encounter Care Teams Manager Sales And Marketing Relationship Specialty Start Date End Date Shireen Stout MD [address] [place] [phone] PCP - General Internal Medicine 09/08/22 [facility] 12/01/24 documented as of this encounter
--- OUTSIDE RECORDS SUMMARY | 2025-02-18 14:36 | XMS_ITS | Encounter Summary ---
Author Organization [employer] Address [address] [facility] 7t [place] [address] Care Team Providers Care Veterinary Technologist Name Role Phone Shireen Stout MD Primary Care Pro vider Reason for Visit * Reason Comments Med Refill Encounter Details Date Type Department Care Team (Late st Contact Info) Description 08/04/2024 Refill [facility] MEDICINE [address] [place], [place] [phone] Shireen Stout MD [address] [place], [place] [phone] Social History Tobacco Use Types Packs/Day Years [...] the past 12 months, has t he [employer] gas, oil or water company threatened to [...] 02/25/2025 10:15 AM EST Office Visit [facility] MEDICINE [address] [place] [phone] Shireen Stout MD [address] [place] [phone] 03/17/2025 11:00 AM EST Office Visit [facility] MEDICINE [address] [place] [address] Rhoda Melvin CNM [address] [place] [phone] documented as of this encounter Visit Diagnoses Not on filedocumented in this encounter Additional Health Concerns Assessment Noted Time PHQ-9 Depression Total Score: 3 03/05/20 24 9:07 AM EST documented as of this encounter Care Teams Veterinary Technologist Relationship Specialty Start Date End Date Shireen Stout MD [address] [place] [phone] PCP - General Internal Medicine 09/08/22 [facility] 09/22/24 12/28/24 [facility] 12/01/24 documented as of this encounter
--- OUTSIDE RECORDS SUMMARY | 2025-02-18 14:37 | XMS_ITS | Encounter Summary ---
Author Organization [employer] Address [address] [facility] 7t [place] [address] Care Team Providers Care Metal Container Maker Name Role Phone Shireen Stout MD Primary Care Pro vider Reason for Visit * Reason Comments Med Refill Encounter Details Date Type Department Care Team (Late st Contact Info) Description 07/27/2023 Refill [facility] P[facility]S [address] [place], [place] [phone] Shireen Stout MD [address] [place] [address] Diabetic peripheral neuropathy associated with type 2 [...] Description 02/25/2025 10:15 AM EST Office Visit [facility] MEDICINE [address] [place] [phone] Shireen Stout MD [address] [place] [phone] 03/17/2025 11:00 AM EST Office Visit [address] [address] [address] [phone] documented as of this encounter Visit Diagnoses Diagnosis Diabetic peripheral neuropathy associated with type 2 diabetes mellitus (HCC) documented in this encounter Additional Health Concerns Assessment Noted Time PHQ-9 Depression Total Score: 5 12/16/19 23 2:02 PM EDT documented as of this encounter Care Teams Metal Container Maker Relationship Specialty Start Date End Date Shireen Stout MD [address] [place] [phone] PCP - General Internal Medicine 6/2/23 [facility] 09/22/24 12/28/24 [facility] 12/01/24 documented as of this encounter
--- OUTSIDE RECORDS SUMMARY | 2025-02-18 14:37 | XMS_ITS | Encounter Summary ---
Author Organization [employer] Address [address] [place] [address] 7t [place] [address] Care Team Providers Care Shingle Packer Name Role Phone Tonja Guzmán SCREW MACHINE SET UP OPERATOR TOOL Primary Care Provider Shireen Acuña MD Primary Care Pro vider Encounter Details Date Type Department Care Team (Late st Contact Info) Description 06/27/[address] [phone] Provider, MD Ja Social History Tobacco Use [...] Description 02/25/2025 10:15 AM EST Office Visit [address] [phone] Shireen Stout MD [address] [place] [address] [phone] 03/17/2025 11:00 AM EST Office Visit [facility] MEDICINE [address] [place] [address] [phone] Rhoda Melvin CNM [address] [place] [address] [phone] documented as of this encounter Procedures Procedure Name Priority Date/Time Associated Diagnosis Comments HEMOGLOBIN A1C (EXTERNAL RESULTS ONLY) Routine 04/20/2022 3:08 PM EST documented in this encounter Results * (ABNORMAL) Hemoglobin A1c (04/20/2022 3:08 PM EST) Hemoglobin A1C 8.9(A) 4.0 - 6.0 % Comment:[facility] [place] 04/20/2022 3:08 PM EST Narrative Eliza Salgado - 04/20/2022 3:08 PM EST A1c performed at [facility] [place] Historical Provider POINT OF CARE TEST ENTER/ EDIT ORDERABLES Final Result documented in this encounter Visit Diagnoses Not on filedocumented in this encounter Care Teams Shingle Packer Relationship Specialty Start Date End Date Tonja Guzmán FNP PCP - General Family Medicine 12/04/21 09/07/22 Shireen Stout MD [address] [place] [phone] PCP - General Internal Medicine 09/08/22 [facility] 09/22/24 12/28/24 [facility] 12/01/24 documented as of this encounter
--- OUTSIDE RECORDS SUMMARY | 2025-02-18 14:37 | XMS_ITS | Encounter Summary ---
Author Organization [employer] Address [address] [facility] 7t [place] [address] Care Team Providers Care Machine Hoop Maker Helper Name Role Phone Shireen Stout MD Primary Care Pro vider Encounter Details Date Type Department Care Team (Late st Contact Info) Description 12/13/2024 Orders Only [facility] MEDICINE [address] [place], [place] [phone] Lisa Mccurdy MD [address] [place], [place] [phone] Leg swelling (Primary Dx); Shortness of breath; [...] Description 02/25/2025 10:15 AM EST Office Visit [facility] MEDICINE [address] [place] [phone] Shireen Stout MD [address] [place] [phone] 03/17/2025 11:00 AM EST Office Visit [facility] MEDICINE [address] [place] [phone] Rhoda Melvin CNM [address] [place] [phone] documented as of this encounter Visit Diagnoses Diagnosis Leg swelling- Primary Swelling of limb Shortness of breath Heart failure with mid-range ejection fraction (HFmEF) ([facility]) documented in this encounter Additional Health Concerns Assessment Noted Time PHQ-9 Depression Total Score: 11 025 9:44 AM EDT documented as of this encounter Care Teams Machine Hoop Maker Helper Relationship Specialty Start Date End Date Shireen Stout MD [address] [place] [phone] PCP - General Internal Medicine 09/08/22 [facility] 09/22/24 12/28/24 [facility] 12/01/24 documented as of this encounter
--- OUTSIDE RECORDS SUMMARY | 2025-02-18 14:37 | XMS_ITS | Clinical Summary ---
Author Organization [employer] Address [address] [place] [address] 7[address] [place] [address] Care Team Providers Care Product Craftsman Name Role Phone Shireen Stout MD Primary [...] eye twice daily Active TRUEplus Lancets [facility] Test blood sugar twice daily as [...] Refills, Soft Stop, 06/18/24 12:20:00 PM EDT, [facility], Partial fill upon patient request [...] Once per day. 30 tablet 11 12/14/19 Active gabapentin (Neurontin) 300 MG capsule Take 1 capsule (300 mg) by mouth at bedtime. 90 capsule 12/16/19 Active acetaminophen (Tylenol Extra Strength) 500 MG tablet Take 1 tablet (500 mg) by mouth every 6 (six) hours if needed for mild pain or fever. 40 tablet 1 01/16/20 Active ertapenem (INVanz) 1 g injection 02/10/20 Active sulfamethoxazole-t rimethoprim (Bactrim DS) 800-160 MG tablet Take 1 tablet by mouth 2 times daily for 7 days. 14 tablet 01/16/20 cephalexin (Keflex) 500 MG capsule Take 1 capsule (500 mg) by mouth 3 times daily for 7 days. 21 capsule 01/16/20 Active Problems Problem Noted Date Diagnosed Date [...] prior to hospitalization. During the hospitalization and [facility]ci stay, it was changed to oxybutynin. - [...] OP referral and reports was connected with [facility] in the past (about 4 / [...] y per pt neg--referred today again to Lissa Motley -MM 05/2022 : BIRADS 2 to repeat in 1 year -colonoscopy 2017: hyperplastic colonic mucosa per pt told to repeat in 10 y -DEXA 2019: Osteoporosis based on the lowest T-score value of -2.7-on tx already -vaccines: hepAx2,hepBx3-Immune , Covid 96s9-Kkihyzcm 10/2022, i41y3-e/p 20 x1, tdap 2022 ,s/p zoster vaccinex2 Assessment & Plan (10/25/2022 1:36 PM EDT): -menopause: 45 years -pap smear > 5 y per pt neg--referred today to JOzzy R -MM 2018: BIRADS 1--referred today -colonoscopy 2017: hyperplastic colonic mucosa per pt told to repeat in 10 y -referred today to GI -DEXA 2019: Osteoporosis based on the lowest T-score value of -2.7-on tx already -vaccines: hepAx2,hepBx3,covid 92e7-Grmokvrj today, e92z4-p/p 20 x1, tdap 2012- today booster,s/p zoster [...] associated w vascular etiology and rec for stunt driver referral -pt was tx already w keflex 500 BID x 5 days at last apt w no change in rash -advised pt to raise leg -referred to stunt driver -pt using fungal cream chronically px by vascular Assessment & Plan (10/25/2022 1:41 PM EDT): Pt w chronic lower left leg pain and erythema -possible vascular in nature ? -I called today her vascular Dr Adame # [phone]-dye staff pt was last seen in 04/2022 [...] some time -pt will check w her director industrial if had recently any DEXA scan otherwise [...] Vit D 1999 -will check w her director industrial if had recently any DEXA scan otherwise [...] heterogeneous left thyroid nodule. -pt f w director industrial-advised pt to continue care w specialist ,pt will discuss tomorrow w specialist if had recently another US or if plan to repeat Assessment & Plan (10/25/2022 1:17 PM EDT): -thyroid US 2019: Small right lobe. Previously identified small right thyroid nodule is not appreciated. Enlarged left lobe. No appreciable change in the solitary, large, heterogeneous left thyroid nodule. -pt f w director industrial-advised pt to continue care w specialist ,request [...] on basal insulin? --I called to her director industrial-Dr Diamond at # [phone] at previous visit to discuss case. I [...] refused. -pt has f up apt w director industrial tomorrow and advised to discuss about basal insulin ? - pantograph setter 11/2022 mild non proliferative diabetic retinopathy to f in 6 mo -referred to crocodile farmer today Assessment & Plan (11/22/2022 7:42 PM EDT): Pt w DM2 -insulin dependent w neuropathy Pt is on rapid insulin 220 u in am only and invokana 10/2022 hb1AC is 7.9<---8.9-elevated Gl at 259 .microalb neg , LDL 66 -unsure why pt is not on basal insulin? --I called to her director industrial-Dr Diamond at # [phone] at previous visit to discuss case. I [...] refused. -pt has f up apt w director industrial tomorrow and advised to discuss about basal insulin ? - pantograph setter 11/2022 mild non proliferative diabetic retinopathy to f in 6 mo -referred to crocodile farmer today Assessment & Plan (10/25/2022 1:12 PM EDT): Pt w DM2 -insulin dependent w neuropathy Pt is on rapid insulin 220 u in am only and invokana -today hb1AC is 8.9-elevated CBG at 392--> rechecked was 302 -unsure why pt is not on basal insulin? --I called today her director industrial-Dr Diamond at # [phone] to discuss case. I left my cell [...] upcoming meal -will await call from her director industrial to discuss plan of care and advised pt to call her specialist at to schedule apt for uncontrolled DM ,likely associated w her ongoing alcohol intake. -also was referred to DM educational by her director industrial -referred today to pantograph setter -will refer to crocodile farmer at next apt -DM labs Essential hypertension [...] 466, HR 74x' 10/2022 Microalb neg - pantograph setter 11/2022 Mild non proliferative diabetic retinopathy to [...] 466, HR 74x' 10/2022 Microalb neg - pantograph setter 11/2022 Mild non proliferative diabetic retinopathy to f up in 6 mo -continue BP meds Assessment & Plan (10/25/2022 5:54 PM EDT): BP is controlled on ARBs -echo 2016 : EF between 55-60 %.Normal -nuclear stress test 2016: without EKG changes meeting criteria for ischemia. -cardiac cath 2016: non obstructive CAD -referred to pantograph setter -microalb -will check EKG at next apt [...] order new one -referred back to her lean manufacturing leader to continue care-has apt on 12/2022 Assessment [...] to start trelegy -referred back to her lean manufacturing leader to continue care -request ALFRED ANDERSON to [...] diet and exercise,discussed healthy life style -discussed manager core referral --referred already has apt for next month Assessment & Plan (10/25/2022 1:12 PM EDT): Advised pt to improve diet and exercise,discussed healthy life style -discussed manager core referral --referred today Smoker 03/25/2015 Assessment & [...] hypoventilatory changes or air trapping. -requested to [place] to obtain last CT chest done per [...] hypoventilatory changes or air trapping. -requested to [place] to obtain last CT chest done per [...] to discuss with her primary care or discharge specialist on getting treatment for alcohol dependence. We discussed using insulin pump, as referenced in director industrial note but this time patient does not feel that she can manage an insulin pump independently. Reviewed with patient how to treat hypoglycemia, hypoglycemic handout in Egyptian given to patient Encounters Date Type Department Care Team Description 02/10/2025 Telephone [facility] [address] [place], [place] [phone] Nohelia Pandey PharmD 02/10/2025 Patient Outreach [address] [address] Shireen Stout MD Transition Of Care (Tcm) (HDF- scheduled and SDOH screening negative and Tobacco screening negative) 02/10/[address] [address] Shireen Stout MD Hospital Follow-up 02/04/2025 Orders Only GENERIC EXTERNAL DATA DEPARTMENT Provider, Generic External Data 01/22/2025 Orders Only [address] [address] Shireen Stout MD Type 2 diabetes mellitus with hyperglycemia, without long-term current use of insulin (HCC) (Primary Dx) 01/22/[address] [address] Shireen Stout MD Referral 01/15/2025 1:40 PM EDT Office Visit [facility] [address] [place] [address] Neda Rae DO Pain of left great toe (Primary Dx); Cellulitis of left lower extremity 01/15/2025 Travel 01/08/[address] [address] Shireen Stout MD 12/30/2024 Telephone [facility] [address] [place] [address] [phone] Maricruz Amato [place] 12/18/[address] [address] Kavitha Ortiz, RN NTTS 12/13/2024 Results Follow-Up [address] [address] Lisa Mccurdy MD POCT Hgb A1c, POCT Glucose, Basic Metabolic Panel, Additional followed-up results: 4 12/13/2024 Orders Only [address] [address] Lisa Mccurdy MD Leg swelling (Primary Dx); Shortness of breath; Heart failure with mid-range ejection fraction (HFmEF) (CMS/HCC) 12/11/2024 9:30 AM EDT Office Visit [address] [address] Lisa Mccurdy MD Essential hypertension (Primary Dx); [...] Travel 12/05/2024 1:00 PM EDT Office Visit [address] [address] Terrence Avila MD Alcohol use disorder, severe, dependence (CMS/HCC) (Primary Dx) 12/05/2024 Travel 12/03/[address] [address] Shireen Stout MD Nurse Triage 11/28/2024 Patient Outreach [address] [phone] Shireen Stout MD Transition Of Care (Tcm) (HDF- scheduled (direct)) 11/25/[address] [address] Shireen Stout MD chart prep from Last 3 Months Immunizations Immunization Administration [...] housing situation today? I have maureen modi 02/10/[address] you li ve. Do you have problems with any of the following? None of the above 02/10/2025 Food Insecurity Answer Date Recorded Within the past 12 months, y ou worried that your food would run out before you got money to buy more: Never True 02/10/2025 Within the past 12 months,th e food you bought just didn't last and you didn't have enough money to get more: Never True 07/2024 Transportation Answer Date Recorded In the past 12 months, has l ack of transportation kept you from medical appts, meetings, work or from getting things needed for daily living? No 02/10/2025 Utilities Answer Date Recorded In the past 12 months, has t he electric, gas, oil or water company threatened to shut off services in your home? No 02/10/2025 Depression Answer Date Recorded Patient Health Questionnaire-2 Score 5 08/21/2024 Internet Access Answer Date Recorded Internet Access Q1 Yes 02/10/2025 Internet Access Q2 Not on file 02/10/2025 Comments No Sex and Gender Information Value [...] Description 02/25/2025 10:15 AM EST Office Visit [facility] [address] [place] [address] [phone] Shireen Stout MD [address] [place], [place] [phone] 03/17/2025 11:00 AM EST Office Visit [facility] [address] [place] [address] OlegarioWu, CNM [address] [place] [address] Health Maintenance Due Date Last Done Comments CT Colonography 1960 FIT DNA/Cologuard 1960 FIT 1960 FOBT 1960 Sigmoidoscopy 1960 HIB Vaccines (1 of 1 - Risk 1-dose series) 03/01/1960 Meningococcal Vaccine (1 - Risk 2-dose series) 1960 Diabetes: Foot Exam 1968 Eye Exam 1968 Meningococcal B Vaccine (1 of 4 - Increased Risk) 1968 Hepatitis B Vaccines (1 of 3 [...] Additional history exists Tobacco Screening 01/15/2026 01/15/2025 SDOH Screening 02/10/2026 02/10/2025 Colonoscopy 05/04/2026 05/04/2016 Colorectal Cancer Screening 05/04/2026 [...] Completed 11/15/2023 Hepatitis C Screening Completed 02/28/2024 HPV Vaccines Aged Out No longer eligi [...] Diabetes mellitus type 2, insulin dependent (CMS/HCC) BI MAMMOGRAM SCREENING TOMOSYNTHESIS BILATERAL Routine 06/30/2024 [...] Whole Blood 77 60 - 115 mg/dL [facility] Comment:METER #: [id number] 02/04/2025 7:06 PM EDT 02/04/2025 7:11 PM EDT us Generic External Data Provider LAB BLOOD ORDERAB LES Final Result [facility] [address] [place] [phone] * (ABNORMAL) Urinalysis, Complete, with Reflex to Culture (02/04/2025 5:53 PM EDT) Color Urine Yellow [facility] Appearance Urine Clear [facility] PH >=9.0 5.0 - 9.0 [facility] Glucose Urine UA >=1000(A) Negative mg/dL [facility] Urine Blood Trace(A) Negative [facility] Specific Daisy - Urine >=1.030(H) 1.005 - 1.025 [facility] Urine Protein Negative Neg-Trace mg/dL [facility] Urine Ketones Negative Negative mg/dL [facility] Nitrite Urine Positive(A) Negative [facility] Leukocyte Esterase Urine Moderate (2+)(A) Negative [facility] RBC Urine 0-2 0 - 2 /HPF [facility] Urine WBC >50(A) 0 - 5 /HPF [facility] Urine Squamous Epithelial Cell 0-2 0 - 2 /HPF [facility] Urine Bacteria 2+ None Seen [facility] Hyaline Casts, Urine 0-2 0 - 2 /LPF [facility] 02/04/2025 5:53 PM EDT 02/04/2025 5:58 PM EDT Narrative [facility] - 02/04/2025 6:45 PM EDT [id number], Catheterized us Generic External Data Provider LAB URINE ORDERAB LES Final Result Performing Organization Address [facility] Co de Phone Number [facility] [address] [place] [phone] * (ABNORMAL) VENOUS BLOOD GAS (02/04/2025 4:59 PM EDT) VBG pH 7.52(H) 7.32 - 7.43 [facility] Comment:METER #: [id number] additional_comment: Cb nmania VBG PCO2 42 mmHg [facility] Comment:METER #: [id number] additional_comment: Cb nmania VBG PO2 42 mmHg [facility] Comment:METER #: [id number] additional_comment: Cb nmania VBG Base Excess 11.2 mmol/L [facility] Comment:METER #: [id number] additional_comment: Cb nmania VBG HCO3 35(H) 22 - 26 mmol/L [facility] Comment:METER #: [id number] additional_comment: Cb nmania O2 Sat, Americo 62.0 % [facility] Comment:METER #: [id number] additional_comment: Cb nmania 02/04/2025 4:59 PM EDT 02/04/2025 5:19 PM EDT us Generic External Data Provider LAB BLOOD ORDERAB LES Final Result Performing Organization Address [facility] Co de Phone Number [facility] [address] [place] [phone] * CT Abdomen Pelvis w/ Contrast (02/04/2025 4:33 PM EDT) Anatomical Region Laterality Modality Body, Pelvis, Abdomen Computed T omography 02/04/2025 4:33 PM EDT Narrative 02/04/2025 5:25 PM EDT [address] [address] [address] Scan Report Signed Patient: Shireen Tavarez MR#: [id number] 1 : 1960 Acct:[id number] Age/Sex: 64 / F ADM Date: 02/04/25 Loc: HO.ED Attending Dr: Ordering Physician: Doe Reed MD Date of Service: 02/04/25 Procedure(s): CT abdomen pelvis w IV con Accession Number(s): [id number] cc: Shireen Stout MD; Doe Reed MD Report Number: [id number]: Total DLP = 446.00 mGy-cm Reason for [...] 02/04/25 1722 DD/ 1633 TD/TT: 02/04/25 1644 Hydrate Thickener Operator: JUNIOR Procedure Note Donotuseinterpreter, Image - 02/04/[address] [address] [address] Scan Report Signed Patient: Shireen TavarezMR#: [id number] 1 : 9Acct:[id number] Age/Sex: 64 / FADM Date: 02/04/25 Loc: HO.ED Attending Dr: Ordering Physician: Doe Reed MD Date of Service: 02/04/25 Procedure(s): CT abdomen pelvis w IV con Accession Number(s): [id number] cc: Shireen Stout MD; Doe Reed MD Report Number: [id number]: Total DLP = 446.00 mGy-cm Reason for [...] 02/04/25 1722 DD/ 1633 TD/TT: 02/04/25 1644 Hydrate Thickener Operator: JUNIOR [facility] External Provider IMG CT PROCEDURES Final Result * CT Lung Screening Low dose (01/29/2025 1:10 PM EDT) Anatomical Region Laterality Modality Lung Computed Tomogra phy 01/29/2025 1:10 PM EDT Narrative 01/29/2025 1:12 PM EDT [place] [address] CT Scan Report Signed Patient: Shireen Tavarez MR#: [id number] 1 : 1960 Acct:[id number] Age/Sex: 64 / F ADM Date: 01/28/25 Loc: HO.CT Attending Dr: Keri Cohen PA-C Ordering Physician: Keri Cohen PA-C Date of Service: 01/28/25 Procedure(s): CT lung screening Accession Number(s): [id number] cc: Keri Cohen PA-C; Shireen Stout MD Report Number: [id number]: Total DLP = 34.00 mGy-cm Reason for Exam: Z87.891 - Personal history of nicotine dependence CLINICAL HISTORY: Z87.891 - Personal history of nicotine dependence CT lung cancer screening (LDCT) Comparison: CT/SD/SR - CT LUNG SCREENING - 01/14/24 09:50 [...] 01/29/25 1311 DD/ 1310 TD/TT: 01/29/25 1310 Hydrate Thickener Operator: Procedure Note Donotuseinterpreter, Image - 01/29/[address] [place] [address] [address] Scan Report Signed Patient: Hunetr Tavarez#: [id number] 1 : 9Acct:[id number] Age/Sex: 64 / FADM Date: 01/28/25 Loc: HO.CT Attending Dr: Keri Cohen PA-C Ordering Physician: Keri Cohen PA-C Date of Service: 01/28/25 Procedure(s): CT lung screening Accession Number(s): [id number] cc: Keri Cohen PA-C; Shireen Stout MD Report Number: [id number]: Total DLP = 34.00 mGy-cm Reason for Exam: Z87.891 - Personal history of nicotine dependence CLINICAL HISTORY: Z87.891 - Personal history of nicotine dependence CT lung cancer screening (LDCT) Comparison: CT/SD/SR - CT LUNG SCREENING - 01/14/24 09:50 [...] 01/29/25 1311 DD/ 1310 TD/TT: 01/29/25 1310 Hydrate Thickener Operator: us [facility] External Provider IMG CT PROCEDURES Edited Result - Final * US Pelvis Transvaginal (01/23/2025 2:18 PM EDT) Anatomical Region Laterality Modality Pelvis Ultrasound 01/23/2025 2:18 PM EDT Narrative 01/23/2025 3:12 PM EDT [place] [address] Ultrasound Report Signed Patient: Shireen Tavarez MR#: [id number] 1 : 1960 Acct:[id number] Age/Sex: 64 / F ADM Date: 01/23/25 Loc: HO.US Attending Dr: Melchor Nunn MD Ordering Physician: Melchor Nunn MD Date of Service: 01/23/25 Procedure(s): US pelvic and transvaginal Accession Number(s): [id number] cc: Shireen Stout MD; Melchor Nunn MD [...] 01/23/25 1509 DD/ 1418 TD/TT: 01/23/25 1435 Hydrate Thickener Operator: Procedure Note Donotuseinterpreter, Image - 01/23/2025 [place] [address] Ultrasound Report Signed Patient: Shireen Tavarez#: [id number] 1 : 9Acct:[id number] Age/Sex: 64 / FADM Date: 01/23/25 Loc: .US Attending Dr: Melchor Nunn MD Ordering Physician: Melchor Nunn MD Date of Service: 01/23/25 Procedure(s): US pelvic and transvaginal Accession Number(s): [id number] cc: Shireen Stout MD; Melchor Nunn MD [...] 01/23/25 1509 DD/ 1418 TD/TT: 01/23/25 1435 Hydrate Thickener Operator: us [facility] External Provider IMG US PROCEDURES Final Result * XR Toes 2+ Left (01/15/2025 3:59 PM EDT) Anatomical Region Laterality Modality Lower Extremities, Toes Left Radiogra phic Imaging 01/15/2025 3:59 PM EDT Narrative 01/15/2025 4:23 PM EDT [address] [address] XRay Report Signed Patient: Shireen Tavarez MR#: [id number] 1 : 1960 Acct:[id number] Age/Sex: 64 / F ADM Date: 01/15/25 Loc: GUTIERREZ Attending Dr: Neda Rae DO Ordering Physician: Neda Rae DO Date of Service: 01/15/25 Procedure(s): XR toe LT min 2V Accession Number(s): [id number] cc: Neda Rae DO Reason for Exam: [...] 01/15/25 1620 DD/ 1559 TD/TT: 01/15/25 1600 Hydrate Thickener Operator: Procedure Note Donotjeffryinterpreter, Image - 01/15/[address] [address] XRay Report Signed Patient: Shireen TavarezMR#: [id number] 1 : 1960cct:[id number] Age/Sex: 64 / FADM Date: 01/15/25 Loc: GUTIERREZ Attending Dr: Neda Rae DO Ordering Physician: Neda Rae DO Date of Service: 01/15/25 Procedure(s): XR toe LT min 2V Accession Number(s): [id number] cc: Neda Rae DO Reason for Exam: [...] 01/15/25 1620 DD/ 1559 TD/TT: 01/15/25 1600 Hydrate Thickener Operator: us Neda Rae DO IMG XR PROCEDURES Final Resu lt * Vitamin D, 25-Hydroxy, Total, Immunoassay (12/11/2024 11:04 AM EDT) Vitamin D 25-OH Total 36.6 >30 ng/mL [facility] Comment: Health Based Reference Values*< 20 ng/mL Pcjvjvsnw00-27 ng/mL Insufficient> 30 ng/mL Sufficient*Acosta BERMUDEZ. N [...] ORDERABLES Final Resul t Performing Organization Address [facility] Co de Phone Number [facility] [address] [place] [phone] * TSH with Reflex to Free T4 (12/11/2024 11:04 AM EDT) TSH reflex Free T4 0.39 0.32 - 4.0 uIU/mL [facility] Blood 12/11/2024 11:0 4 AM EDT 12/11/2024 1:28 PM EDT us Lisa Mccurdy MD LAB BLOOD ORDERABLES Final Resul t Performing Organization Address [facility] Co de Phone Number [facility] [address] [place] [phone] * (ABNORMAL) NT-proBNP (12/11/2024 11:04 AM EDT) NT-proBNP 517(A) <125 pg/mL [facility] Comment:THIS TEST WAS PERFOR MED AT:[facility] [address] [phone] AGUIRRE MD Venous blood specimen / Unknown 12/11/2024 11:04 AM EDT 12/11/2024 1:16 PM EDT us Lisa Mccurdy MD LAB BLOOD ORDERABLES Final Resul t Performing Organization Address [facility] Co de Phone Number [facility] [address] [place] [phone] * (ABNORMAL) CBC auto differential (12/11/2024 11:04 AM EDT) White Blood Count 5.6 4.8 - 10.8 X10*3/uL [facility] Red Blood Count 3.38(L) 4.20 - 5.50 X10*6/uL [facility] Hemoglobin 10.4(L) 12.0 - 16.0 g/dl [facility] Hematocrit 32.1(L) 37.0 - 47.0 % [facility] Mean Corpuscular Volume 95.0 80.0 - 98.0 fL [facility] Mean Corpuscular Hemoglobin 30.8 27.0 - 33.0 pg [facility] Mean Corpuscular HGB Conc 32.4 31.0 - 35.0 g/dl [facility] Red Cell Distribution Width 15.6 11.0 - 16.0 % [facility] Platelet Count 199 160 - 400 X10*3/uL [facility] Mean Platelet Volume 10.1 9.4 - 12.3 fL [facility] Neutrophils Percent Auto 65.0 45 - 73 % [facility] Imm Gran Pct Auto 0.5(H) 0.0 - 0.4 % [facility] Lymphocytes Percent Auto 25.4 20 - 40 % [facility] Monocytes Percent Auto 6.6 2 - 11 % [facility] Eosinophils Percent Auto 2.0 0 - 4 % [facility] Basophils Percent Auto 0.5 0 - 2 % [facility] NRBC Pct Auto 0.0 0.0 - 0.2 /100WBC [facility] Neutrophils Absolute Auto 3.6 2.0 - 8.3 x10*3/uL [facility] Imm Gran Abs Auto 0.03 0.00 - 0.03 X10*3/uL [facility] Lymphocytes Absolute Auto 1.4 1.2 - 4.9 X10*3/uL [facility] Monocytes Absolute Auto 0.4 0.1 - 1.2 X10*3/uL [facility] Eosinophils Absolute Auto 0.1 0.0 - 0.4 X10*3/uL [facility] Basophils Absolute Auto 0.0 0.0 - 0.2 X10*3/uL [facility] NRBC Abs Auto 0.000 0.0 - 0.012 X10*3/uL [facility] Blood Venous blood specimen / Unknown 12/11/2024 11:04 AM EDT 12/11/2024 1:28 PM EDT us Lisa Mccurdy MD LAB BLOOD ORDERABLES Final Resul t Performing Organization Address City/[facility]/ZIP Co de Phone Number [facility] [address] [place] [phone] * (ABNORMAL) Basic Metabolic Panel (12/11/2024 11:04 AM EDT) Sodium 144 135 - 145 mmol/L [facility] Potassium 3.6 3.3 - 5.1 mmol/L [facility] Chloride 106 96 - 108 mmol/L [facility] Carbon Dioxide 31(H) 22 - 29 mmol/L [facility] Anion Gap 11(L) 12 - 20 [facility] Urea Nitrogen (BUN) 5(L) 9 - 16 mg/dL [facility] Creatinine, Serum 0.56 0.5 - 1.4 mg/dL [facility] Estimated Glomerular Filt Rate >60 [facility] Comment:Chronic Kidney Disea se: Estimated GFR < 60 mL/min/1.48w5Diujvb Kidney Disease: Estimated GFR < 15 mL/min/1.73m2 Glucose 182(H) 60 - 115 mg/dL [facility] Calcium 9.2 8.4 - 10.2 mg/dL [facility] Blood Venous blood specimen / Unknown 12/11/2024 11:04 AM EDT 12/11/2024 1:28 PM EDT us Lisa Mccurdy MD LAB BLOOD ORDERABLES Final Resul t Performing Organization Address City/[facility]/ZIP Co de Phone Number [facility] [address] [place] [phone] * POCT Hgb A1c (12/11/2024 9:46 AM EDT) Hemoglobin A1C 5.7 4.0 - 5.7 % QC Media Lot # [id number] Lot# Expiration Date 627 Blood 12/11/2024 9:46 AM EDT us Lisa Mccurdy MD POINT OF CARE TEST ENTER/EDIT OR DERABLES Final Result * (ABNORMAL) POCT Glucose (12/11/2024 9:44 AM EDT) Glucose Blood, POC 264(A) 60 - 200 mg/dL [employer] Lot # [id number] Lot# Expiration Date Blood Capillary blood specimen / Unknown 12/11/2024 9:44 AM EDT Lisa Mccurdy MD POINT OF CARE TEST ENTER/EDIT OR DERABLES Final Result * BI Mammogram Screening Tomosynthesis Bilateral (06/30/2024 10:15 AM EDT) Anatomical Region Laterality Modality Breast Bilateral Mammography 06/30/2024 10:1 5 AM EDT Narrative 07/06/2024 8:14 PM EDT [facility] [address] [place], [place] [address] Mammography Report Signed Patient: Shireen Tavarez MR#: [id number] 1 : 1960 Acct:[id number] Age/Sex: 63 / F ADM Date: 06/30/24 Loc: HO.MAMMO Attending Dr: Shireen Krishnan MD Ordering Physician: Shireen Stout MD Re sults: 2Benign Findings Date of Service: 06/30/24 Follow Up: 1 Year From Orig inal Mammogram Procedure(s): MM tomosynthesis screening BI Accession Number(s): [id number] cc: Shireen Stout MD EXAMINATION: MM SCREENING [...] OV> 07/06/242010 DD/ 1015 TD/TT: 06/30/24 1029 Hydrate Thickener Operator: Procedure Note Donotuseinterpreter, Image - 07/06/2024 Frank [facility] [address] [place], [place] [address] Mammography Report Signed Patient: Shireen TavarezMR#: [id number] 1 : 9Acct:[id number] Age/Sex: 63 / FADM Date: 06/30/24 Loc: HO.MAMMO Attending Dr: Shireen Krishnan MD Ordering Physician: Shireen Stout sults: 2Benign Findings Date of Service: 06/30/24Follow Up: 1 Year From Orig inal Mammogram Procedure(s): MM tomosynthesis screening BI Accession Number(s): [id number] cc: Shireen Stout MD EXAMINATION: MM SCREENING [...] OV> 07/06/242010 DD/ 1015 TD/TT: 06/30/24 1029 Hydrate Thickener Operator: Shireen Krishnan MD IMG BI PROCEDURES Edited Result - Final * Hepatitis C Antibody with Reflex to HCV, RNA, Quantitative, Real-Time PCR (02/28/2024 11:10 AM EST) Hepatitis C Antibody Nonreactive Nonreactive [facility] Comment:Antibodies to HCV no t detected; does not exclude early acuteHCV infection. Blood Venous blood specimen / Unknown 02/28/2024 11:10 AM EST 02/28/2024 11:10 AM EST us Shireen Krishnan MD LAB BLOOD ORDERAB LES Final Result [facility] [address] [place] [address] [phone] * Lipid Panel, Standard (02/28/2024 11:10 AM EST) Triglycerides 132 <150 mg/dL [facility] Comment:Desirable Triglyceri de: less than 150 mg/dLBorderline High Triglyceride 150-199 mg/dLHigh Triglyceride: 200-499 mg/dLVery High Triglyceride: greater than or equal to 5OO mg/dL Cholesterol 128 <200 mg/dL [facility] Comment:Desirable Cholestero l: less than 200 mg/dLBorderline High Cholesterol: 200-239 mg/dLHigh Cholesterol: greater than 239 mg/dL LDL Cholesterol Calculated 56 <100 mg/dL [facility] Comment:Desirable LDL: less than 100 mg/dLNear Optimal/Above Optimal LDL: 110- 129 mg/dLBorderline High LDL: 130-159 mg/dLHigh LDL: 160-189 mg/dLVery High LDL: greater than or equal to 190 mg/dL HDL Cholesterol 46 >40 mg/dL [facility] Comment:Desirable HDL: great er than 40 mg/dL Note: This HDL assay may give artificially low results in patients with liver disease. Blood Venous blood specimen / Unknown 02/28/2024 11:10 AM EST 02/28/2024 11:10 AM EST us Shireen Krishnan MD LAB BLOOD ORDERAB LES Final Result Performing Organization Address City/[facility]/ZIP Co de Phone Number [facility] [address] [place] [address] [phone] * Albumin, Random Urine W/Creatinine (02/28/2024 11:05 AM EST) Creatinine, Urine 80.33 mg/dL [facility] Microalbumin Urine <5.0 mg/L [facility] Microalbum Creatinine Ratio Ur TNP <30 ug/mg cr [facility] Comment:Unable to calculate albumin/creatinine ratio due to lowmicroalbumin or creatinine result. Urine (Urine, Random) 02/28/2024 11:05 AM EST 02/28/2024 12:03 PM EST us Shireen Krishnan MD LAB URINE ORDERAB LES Final Result Performing Organization Address City/[facility]/ZIP Co de Phone Number [facility] [address] [place] [phone] * HPV mRNA E6/E7 w/Reflex to HPV Genotypes 16, 18/45 (02/19/2023 10:03 AM EST) HPV nRNA E6/E7 Not Detected Not Detected [facility] Comment:Methodology: Transcr iption-Mediated AmplificationThis assay detects E6/E7 viral messenger RNA (mRNA) from 14high-risk HPV types (16,18,31,33,35,39,45,51,52,56,58,59,66,68).Cervical sources are required for HPV testing.If a vaginal source from a patient who has had atotal hysterectomy with removal of cervix wassubmitted, please contact the testing laboratoryfor alternative testing options.For additional information, please refer [email or web address] Knight/faq/[email or web address](This link if provided for information/educational purposes only.)THIS TEST WAS PERFORMED AT:[facility] [place] [phone] AGUIRRE MD HPV mRNA E6/E7 [facility] HPV 16 RNA [facility] HPV 18/45 RNA [facility] 02/19/2023 10:0 3 AM EST 02/20/2023 11:30 AM EST Wu Arroyo [facility] CYTOLOGY ORDERABLES F inal Result [facility] [address] [place] [phone] * Pap Smear (02/19/2023 10:03 AM EST) 02/19/2023 10:0 3 AM EST 02/20/2023 11:30 AM EST Narrative [facility] - 03/09/2023 12:47 PM EST ----- ------- Name: Shireen Tavarez Age/Sex: 62/F : 1960 Unit#: [id number] Attend Dr: WU ARROYO CNM Re02/19/23 Status: DEP [facility] ----- ------- SPEC : [id number] RECD: 02/20/23 STATUS: LUCIA CALVERT NUM: [id number] NATALIE: 02/19/23-[address] [facility] [address]: WU ARROYO CNM ENTERED: 02/20/23-9 SP TYPE: Pap Smr OTHR DR: ORDERED: Pap Smear Interpretation Satisfactory for evaluation. Negative for intraepithelial lesion or malignancy. HPV mRNA E6/E7: NOT DETECTED This assay detects E6/E7 viral messenger RNA (mRNA) from 14 high-risk HPV types (16, 18, 31, 33, 35, 39, 45, 51, 52, 56, 58, 59, 66, 68) HPV testing performed by [facility], [place], [place]. See reference laboratory portion of the EMR for entire report. Clinical Information LMP: Postmenopausal Previous PAP test: 2017, ASCUS HPV neg Material Received ThinPrep-Cervical ----- ------- Signed (signature on file) J[facility]NA [place] ([facility]) 03/09/23 1247 ----- ------- END OF REPORT Wu Arroyo CNM LAB CYTOLOGY ORDERABLES F inal Result [facility] [address] [place] [phone] * Colonoscopy (05/04/2016) Colonoscopy performed Historical Provider HEALTH MAINTENANCE Final Result from Last 3 Months or Most Recently Relevant to Health Maintenance Insurance [facility] J[employer] OPT[employer] (O D-SNP) [address] [place] [phone] Care Teams Product Craftsman Relationship Specialty Start Date End Date Shireen Stout MD [address] [place] [address] PCP - General Internal Medicine 09/08/22 [facility] 12/01/24
--- OUTSIDE RECORDS SUMMARY | 2025-02-18 14:37 | XMS_ITS | Encounter Summary ---
Author Organization [employer] Address [address] [facility] 7t [place] [address] Care Team Providers Care Tune Up Mechanic Name Role Phone Shireen Stout MD Primary Care Pro vider Reason for Visit * Reason Comments Med Refill Encounter Details Date Type Department Care Team ([facility] st Contact Info) Description 04/05/2023 Refill [facility] [address] [place], [place] [phone] Enedelia Coley MD [address] [place], [place] [phone] Social History Tobacco Use Types Packs/Day Years [...] 10:15 AM EST Office Visit [facility] [address] [place] [phone] Shireen Stout MD [address] [place] [phone] 03/17/2025 11:00 AM EST Office Visit [facility] [address] [place] [address] Rhoda Melvin CNM [address] [place] [address] documented as of this encounter Visit Diagnoses Not on filedocumented in this encounter Additional Health Concerns Assessment Noted Time PHQ-9 Depression Total Score: 5 12/16/19 23 2:02 PM EDT documented as of this encounter Care Teams Tune Up Mechanic Relationship Specialty Start Date End Date Shireen Stout MD [address] [place] [phone] PCP - General Internal Medicine 09/08/22 [facility] 09/22/24 12/28/24 [facility] 12/01/24 documented as of this encounter
--- OUTSIDE RECORDS SUMMARY | 2025-02-18 14:37 | XMS_ITS | Encounter Summary ---
Author Organization [employer] Address [address] [facility] 7t [place] [address] Care Team Providers Care Doffer Name Role Phone Shireen Stout MD Primary Care Pro vider Reason for Visit * Reason Onset Date Comments Hospital Follow-up 02/10/2025 Encounter Details Date Type Department Care Team ([facility] st Contact Info) Description 02/10/2025 Telephone [facility] [address] [place] [address] Shireen Stout MD [address] [place], [place] [phone] Hospital Follow-up Social History Tobacco Use Types Packs/Day Years [...] * Telephone Encounter - Verito Garcia - 02/10/2025 10:19 AM EST Tc from pt requesting a HDF appt. Hospital: [facility] Date of admission: 02/04 Discharge date: 02/09 Diagnosed: bone infection *Send message to [facility] Clinical Care Coordinators documented in this encounter Plan of Treatment Upcoming Encounters Date Type Department Care Team (Late st Contact Info) Description 02/25/2025 10:15 AM EST Office Visit [facility] [address] [place] [phone] Shireen Stout MD [address] [place] [address] 03/17/2025 11:00 AM EST Office Visit [facility] [address] [place] [address] [phone] Rhoda Melvin, JAKI [address] [place] [address] documented as of this encounter Visit Diagnoses Not on filedocumented in this encounter Additional Health Concerns Assessment Noted Time PHQ-9 Depression Total Score: 11 08/21/ 025 9:44 AM EDT documented as of this encounter Care Teams Doffer Relationship Specialty Start Date End Date Shireen Stout MD [address] [place], [place] [phone] PCP - General Internal Medicine 09/08/22 [facility] 12/[facility]/24 documented as of this encounter
--- OUTSIDE RECORDS SUMMARY | 2025-02-18 14:37 | XMS_ITS | Encounter Summary ---
Author Organization [employer] Address [address] [facility] 7t [place] [address] Care Team Providers Care Carpet Installation Specialist Name Role Phone Shireen Stout MD Primary Care Pro vider Reason for Visit * Reason Onset Date Comments Nurse Triage 12/03/2024 Encounter Details Date Type Department Care Team ([facility] st Contact Info) Description 12/03/2024 Telephone [facility] MED[facility]INE [address] [place] [address] Shireen Stout MD [address] [place] [address] Nurse Triage Social History Tobacco Use Types [...] have a UTI. Call to Pt with [facility] editor continuity and script ID [id number]. Pt is speaking for Pt who is [...] 7pm to come in the morning instead. Repairer Evaporator did indicate that on INstead Pt request. [...] The caller accepted this outcome. Pt is [place] soeaking Visiting nurse speaks romansh documented in this encounter Plan of Treatment Upcoming Encounters Date Type Department Care Team (Late st Contact Info) Description 02/25/2025 10:15 AM EST Office Visit [facility] MED[facility]INE [address] [place] [phone] Shireen Stout MD [address] [place] [phone] 03/17/2025 11:00 AM EST Office Visit [facility] [address] [place] [address] Rhoda Melvin CNM [address] [place] [address] documented as of this encounter Visit Diagnoses Not on filedocumented in this encounter Additional Health Concerns Assessment Noted Time PHQ-9 Depression Total Score: 11 025 9:44 AM EDT documented as of this encounter Care Teams Carpet Installation Specialist Relationship Specialty Start Date End Date Shireen Stout MD [address] [place] [phone] PCP - General Internal Medicine 09/08/22 [facility] 09/22/24 12/28/24 [facility] 12/01/24 documented as of this encounter
--- OUTSIDE RECORDS SUMMARY | 2025-02-18 14:37 | XMS_ITS | Encounter Summary ---
Author Organization [employer] Address [address] [facility] 7t [place] [address] Care Team Providers Care Nurse Orthopedic Name Role Phone Shireen Stout MD Primary Care Pro vider Reason for Visit * Reason Comments Med Refill Encounter Details Date Type Department Care Team (Late st Contact Info) Description 07/27/2023 Refill [facility] MED & PEDS [address] [place], [place] [phone] Shireen Stout MD [address] [place] [address] Diabetic peripheral neuropathy associated with type 2 [...] 02/25/2025 10:15 AM EST Office Visit [facility] [address] [place] [address] Shireen Stout MD [address] [place] [address] 03/17/2025 11:00 AM EST Office Visit [address] [address] [address] [address] documented as of this encounter Visit Diagnoses Diagnosis Diabetic peripheral neuropathy associated with type 2 diabetes mellitus (HCC) documented in this encounter Additional Health Concerns Assessment Noted Time PHQ-9 Depression Total Score: 5 12/16/19 23 2:02 PM EDT documented as of this encounter Care Teams Nurse Orthopedic Relationship Specialty Start Date End Date Shireen Stout MD [address] [place] [phone] PCP - General Internal Medicine 6/2/23 [facility] 09/22/24 12/28/24 [facility] 12/01/24 documented as of this encounter
--- OUTSIDE RECORDS SUMMARY | 2025-02-18 14:37 | XMS_ITS | Encounter Summary ---
Author Organization [employer] Address [address] [facility] 7t [place] [address] Care Team Providers Care Cook Fish Eggs Name Role Phone Shireen Stout MD Primary Care Pro vider Reason for Visit * Reason Comments Med Refill Encounter Details Date Type Department Care Team (Late st Contact Info) Description 10/17/2023 Refill [facility] [address] [place], [place] [phone] Bruna Yusuf FNP [address] [place] [address] Social History Tobacco Use Types Packs/Day Years [...] Description 02/25/2025 10:15 AM EST Office Visit [facility] [address] [place] [phone] Shireen Stout MD [address] [place] [phone] 03/17/2025 11:00 AM EST Office Visit [facility] [address] [place] [address] Rohda Melvin CNM [address] [place] [address] documented as of this encounter Visit Diagnoses Not on filedocumented in this encounter Additional Health Concerns Assessment Noted Time PHQ-9 Depression Total Score: 5 12/16/19 23 2:02 PM EDT documented as of this encounter Care Teams Cook Fish Eggs Relationship Specialty Start Date End Date Shireen Stout MD [address] [place] [phone] PCP - General Internal Medicine 09/08/22 [facility] 09/22/24 12/28/24 [facility] 12/01/24 documented as of this encounter
== END 2025-02-18 10:57 | disposition home or self-care (01) ==
LOC: HO.LAB 10:56
PROVIDERS: PCP Student in an Organized Health Care Education/Training Program; Visit Provider Obstetrics & Gynecology
DX: N85.8 Other specified noninflammatory disorders of uterus (principal)
CPT/HCPCS: 36415; 82565; 84520; 99212

== ENCOUNTER 2025-03-09 09:46 | Outpatient (AMB) | payer OTHER, SELFPAY ==
[2025-03-09 10:14] VITALS: BP 118/70; PULSE 58; O2SAT 98
--- NOTE | 2025-03-09 10:14 | A.OFFVIS_ITS ---
Vital Signs 3 03/09/25 10:14 BP 118/70 Pulse 58 Pulse Oximetry (%) 98 Intake Visit Reasons: [facility] [place] reff/ecoli/ertapenem until 03/18 Allergies cornflower (Cornflower) Allergy (Unknown, Verified 03/09/25 10:15) ITCHY EYES/HIVES peach (PEACH) Allergy (Unknown, Verified 03/09/25 10:15) NATURAL FRUIT - MOUTH ITCHES cornell (cherries) Allergy (Verified 03/09/25 10:15) Unknown morphine Allergy (Verified 03/09/25 10:15) Itching apples Allergy (Unknown, Uncoded 03/09/25 10:15) Unknown peanut Allergy (Unknown, Uncoded 03/09/25 10:15) Unknown HPI Comments Details: History of Present Illness The patient is a 64 year old female presenting for follow-up of osteomyelitis of the left great toe. She was previously seen in the hospital for this condition and has been receiving treatment with IV ertapenem for over five weeks. She reports being anxious to complete the course of antibiotics. Review of Systems Physical Exam - Vitals: Stable. - Oropharynx: Clear. - Lungs: Clear. - Cardiovascular: Regular rate and rhythm. - Abdomen: Soft, non-tender. - Extremities: The left foot is noted to be healing. Results Plan Patient was informed and verbally consented to the use of an ambient scribe for clinic note documentation during this visit. 1. Osteomyelitis, unspecified M86.9 HCC 92 The patient has been treated for osteomyelitis of the left great toe with over five weeks of IV ertapenem. The area is healing well on examination. The plan is to finish the course of antibiotics. She will follow up on an as-needed basis. Discussion Notes I discussed with the patient that she has been on IV ertapenem for over five weeks for osteomyelitis of the left great toe and is now ready to finish the course of antibiotics. The patient has consented to the use of ambient technology. Follow-up will be on an as-needed basis. Medical Decision Making The patient presents for a follow-up of osteomyelitis of the left great toe. She has completed over five weeks of IV ertapenem therapy and is clinically improved, with evidence of a healing foot on examination. Given her stable vital signs and physical findings, the plan is to conclude her antibiotic treatment and arrange for follow-up as needed. Patient Instructions - You will now finish your course of antibiotics for the infection in your left great toe. - Please follow up with the clinic as needed if you have any concerns. [facility] Medical History Toe ulcer due to DM Abnormal CT scan, gastrointestinal tract Elevated troponin Cardiomyopathy CAD (coronary artery disease) Dyspnea Asthma-COPD overlap syndrome Alcohol use History of methadone use Personal history of nicotine dependence Asthma Obesity (BMI 30-39.9) GERD (gastroesophageal reflux disease) Cirrhosis Vitamin D deficiency Hypertension Dyslipidemia Non-toxic multinodular goiter Osteoporosis Diabetic 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 with type 2 diabetes mellitus supervisor intermediates (current) use of insulin Diabetes type 2, uncontrolled Surgical History Status post biopsy of thyroid gland History of colonoscopy (~2016) Hx of cataract extraction History of esophagogastroduodenoscopy (EGD) (~2020) Hx of cardiac cath (~12/2015) Hx of cholecystectomy (~1980) History of bladder surgery (~06/2019) Family History Father Esophageal cancer Mother Diabetes mellitus HTN (hypertension) Social History Household Members: Spouse Housing: Apartment Do you presently have visiting nurse or other home services: Yes ([employer] [facility].) Alcohol intake: former Patient Tobacco Use Status: Former Tobacco user Tobacco use type: Cigarette Years Smoked: Onset 27, 2ppd x 24yrs, 48pyh, quit 11/2012 Advance Directives Date on File: 02/28/21 service: No Physical Exam Exam Exam: Vital Signs: Last Vital Signs Pulse 58 03/09/25 10:14 BP 118/70 03/09/25 10:14 Pulse Ox 98 03/09/25 10:14 Assessment & Plan Assessment & Plan (1) Osteomyelitis of great toe of left foot: Code(s): M86.9 - Osteomyelitis, unspecified Category: Medical Plan: as above Orders: Orders 2 IR cvc remove any age 1203/09/25 M86.9 - Osteomyelitis, unspecified Medications: New 2 amoxicillin 500 mg PO TID 42 caps 0RF 14 days Coding Level of Care Code Est Pt Level 3 (45986) Diagnoses Osteomyelitis of great toe of left foot M86.9
--- OUTSIDE RECORDS SUMMARY | 2025-03-09 11:43 | XMS_ITS | Encounter Summary ---
Author Organization [employer] Address [address] [facility] 7t [place] [address] Care Team Providers Care Crocheter Name Role Phone Shireen Stout MD Primary Care Pro vider Reason for Visit * Reason Comments Med Refill Encounter Details Date Type Department Care Team (Late st Contact Info) Description 01/16/2023 Refill [facility] MED & PEDS [address] [place], [place] [phone] Shireen Stout MD [address] [place] [address] Social History Tobacco Use Types Packs/Day Years [...] Care Team (Late st Contact Info) Description 03/17/2025 11:00 AM EST Office Visit [facility] MEDICINE [address] [place] [address] Rhoda Melvin CNM [address] [place] [address] 03/18/2025 10:15 AM EST Office Visit [address] [address] Shireen Sotut MD [address] [place] [address] documented as of this encounter Visit Diagnoses Not on filedocumented in this encounter Additional Health Concerns Assessment Noted Time PHQ-9 Depression Total Score: 5 12/16/19 23 2:02 PM EDT documented as of this encounter Care Teams Crocheter Relationship Specialty Start Date End Date Shireen Stout MD [address] [place] [address] PCP - General Internal Medicine 09/08/22 [facility] 09/22/24 12/28/24 [facility] 12/01/24 documented as of this encounter
--- OUTSIDE RECORDS SUMMARY | 2025-03-09 11:43 | XMS_ITS | Encounter Summary ---
Author Organization [employer] Address [address] [facility] 7t [place] [address] Care Team Providers Care Service Worker Helper Name Role Phone Shireen Stout MD Primary Care Pro vider Encounter Details Date Type Department Care Team ([facility] st Contact Info) Description 01/08/2025 Telephone [facility] 230 [place], [place] [phone] Shireen Stout MD [address] [place], [place] [phone] Social History Tobacco Use Types Packs/Day Years [...] your housing situation today? I have maureen moid 01/23/[address] you li [...] - 01/08/2025 4:37 PM EDT Tc from [place] with [facility] requesting status on face to face documents. documented in this encounter Plan of Treatment Upcoming Encounters Date Type Department Care Team (Late st Contact Info) Description 03/17/2025 11:00 AM EST Office Visit [facility] [address] [place] [phone] Rhoda Melvin CNM [address] [place] [address] 03/18/2025 10:15 AM EST Office Visit [facility] [address] [place] [phone] Shireen Stout MD [address] [place] [address] documented as of this encounter Visit Diagnoses Not on filedocumented in this encounter Additional Health Concerns Assessment Noted Time PHQ-9 Depression Total Score: 11 025 9:44 AM EDT documented as of this encounter Care Teams Service Worker Helper Relationship Specialty Start Date End Date Shireen Stout MD [address] [place] [address] 19896 PCP - General Internal Medicine 09/08/22 [facility] 12/01/24 documented as of this encounter
--- OUTSIDE RECORDS SUMMARY | 2025-03-09 11:43 | XMS_ITS | Encounter Summary ---
Author Organization [employer] Address [address] [place] [address] 7t [place] [address] Care Team Providers Care Fairing Worker Name Role Phone Shireen Stout MD Primary Care Pro vider Reason for Visit * Reason Comments Med Refill Encounter Details Date Type Department Care Team (Late st Contact Info) Description 01/10/2023 Refill [facility] MED[facility]INE [address] [place], [place] [phone] Tonja Guzmán, DIMAS Pulmonary emphysema, unspecified emphysema [...] Description 03/17/2025 11:00 AM EST Office Visit [facility]INE [address] [place] [address] Rhoda Melvin CNM [address] [place] [address] 03/18/2025 10:15 AM EST Office Visit [facility] [address] [place] [address] Shireen Stout MD [address] [place] [address] documented as of this encounter Visit Diagnoses Diagnosis Pulmonary emphysema, unspecified emphysema type documented in this encounter Additional Health Concerns Assessment Noted Time PHQ-9 Depression Total Score: 5 12/16/19 23 2:02 PM EDT documented as of this encounter Care Teams Fairing Worker Relationship Specialty Start Date End Date Shireen Stout MD [address] [address] PCP - General Internal Medicine 09/08/22 [facility] 09/22/24 12/28/24 [facility] 12/01/24 documented as of this encounter
--- OUTSIDE RECORDS SUMMARY | 2025-03-09 11:43 | XMS_ITS | Encounter Summary ---
Author Organization [employer] Address [address] [facility] 7t [place] [address] Care Team Providers Care Technical Designer Name Role Phone Shireen Stout MD Primary Care Pro vider Reason for Visit * Reason Comments Med Refill Encounter Details Date Type Department Care Team (Late st Contact Info) Description 01/16/[address] [facility] MEDICINE [address] [place] [address] Tonja Guzmán FNP Social History Tobacco Use [...] Description 03/17/2025 11:00 AM EST Office Visit [address] [address] Rhoda Melvin CNM [address] [place] [address] 03/18/2025 10:15 AM EST Office Visit [address] [address] Shireen Stout MD [address] [place] [address] documented as of this encounter Visit Diagnoses Not on filedocumented in this encounter Additional Health Concerns Assessment Noted Time PHQ-9 Depression Total Score: 5 12/16/19 23 2:02 PM EDT documented as of this encounter Care Teams Technical Designer Relationship Specialty Start Date End Date Shireen Stout MD [address] [place] [address] [phone] PCP - General Internal Medicine 09/08/22 [facility] 09/22/24 12/28/24 [facility] 12/01/24 documented as of this encounter
--- OUTSIDE RECORDS SUMMARY | 2025-03-09 11:43 | XMS_ITS | Encounter Summary ---
Author Organization [employer] Address [address] [facility] 7t [place] [address] Care Team Providers Care Forensic Science Technician Name Role Phone Shireen Stout MD Primary Care Pro vider Reason for Visit * Reason Comments Med Refill Encounter Details Date Type Department Care Team (Late st Contact Info) Description 01/16/2023 Refill [facility] MED & PEDS [address] [place], [place] [phone] Shireen Stout MD 230 [place] [address] Social History Tobacco Use Types Packs/Day Years [...] Description 03/17/2025 11:00 AM EST Office Visit [facility] MEDICINE [address] [place] [address] Rhoda Melvin CNM [address] [place] [phone] 03/18/2025 10:15 AM EST Office Visit [address] [address] Shireen Stout MD [address] [place] [address] documented as of this encounter Visit Diagnoses Not on filedocumented in this encounter Additional Health Concerns Assessment Noted Time PHQ-9 Depression Total Score: 5 12/16/19 23 2:02 PM EDT documented as of this encounter Care Teams Forensic Science Technician Relationship Specialty Start Date End Date Shireen Stout MD [address] [place] [address] PCP - General Internal Medicine 09/08/22 [facility] 09/22/24 12/28/24 [facility] 12/01/24 documented as of this encounter
--- OUTSIDE RECORDS SUMMARY | 2025-03-09 11:43 | XMS_ITS | Encounter Summary ---
Author Organization [employer] Address [address] [facility] 7t [place] [address] Care Team Providers Care Figurine Maker Name Role Phone Shireen Stout MD Primary Care Pro vider Reason for Visit * Reason Comments Med Refill Encounter Details Date Type Department Care Team (Late st Contact Info) Description 08/04/2024 Refill [facility] MEDICINE 230 [place], [place] [phone] hSireen Stout MD 230 [place], [place] [phone] Social History Tobacco Use Types Packs/Day Years [...] the past 12 months, has t he [employer], gas, oil or water company threatened to [...] Description 03/17/2025 11:00 AM EST Office Visit [address] [address] Rhoda Melvin CNM [address] [place] [address] 03/18/2025 10:15 AM EST Office Visit [address] [address] Shireen Stout MD [address] [place] [address] documented as of this encounter Visit Diagnoses Not on filedocumented in this encounter Additional Health Concerns Assessment Noted Time PHQ-9 Depression Total Score: 3 03/05/20 24 9:07 AM EST documented as of this encounter Care Teams Figurine Maker Relationship Specialty Start Date End Date Shireen Stout MD [address] [place] [address] PCP - General Internal Medicine 09/08/22 [facility] 09/22/24 12/28/24 [facility] 12/01/24 documented as of this encounter
--- OUTSIDE RECORDS SUMMARY | 2025-03-09 11:43 | XMS_ITS | Encounter Summary ---
Author Organization [employer] Address 75 [facility] 7t [place] [address] Care Team Providers Care Locomotive Mechanic Name Role Phone Shireen Stout MD Primary Care Pro vider Reason for Visit * Reason Onset Date Comments Referral 01/22/2025 Encounter Details Date Type Department Care Team ([facility] st Contact Info) Description 01/22/2025 Telephone [facility] MEDICINE [address] [place] [address] Shireen Stout MD 230 [place] [address] Referral Social History Tobacco Use Types Packs/Day [...] Tc from Noelle requesting a referral for literary agent Contact Noelle at [phone] documented in this encounter Plan of Treatment Upcoming Encounters Date Type Department Care Team (Late st Contact Info) Description 03/17/2025 11:00 AM EST Office Visit [facility] MEDICINE [address] [place] [address] Rhoda Melvin CNM 230 [place] [address] 03/18/2025 10:15 AM EST Office Visit [facility] MEDICINE [address] [place] [address] Shireen Stout MD 230 [place] [address] documented as of this encounter Visit Diagnoses Not on filedocumented in this encounter Additional Health Concerns Assessment Noted Time PHQ-9 Depression Total Score: 11 08/21/ 025 9:44 AM EDT documented as of this encounter Care Teams Locomotive Mechanic Relationship Specialty Start Date End Date Shireen Stout MD 230 [place] [address] PCP - General Internal Medicine 09/08/22 [facility] 12/01/24 documented as of this encounter
--- OUTSIDE RECORDS SUMMARY | 2025-03-09 11:44 | XMS_ITS | Encounter Summary ---
Author Organization [employer] Address [address] [place] [address] 7 [place] [address] Care Team Providers Care Refuse Collector Supervisor Name Role Phone Tonja Guzmán PIERCER Primary Care Provider Shireen Acuña MD Primary Care Pro vider Encounter Details Date Type Department Care Team (Late st Contact Info) Description 06/27/[address] [phone] Provider, MD Ja Social History Tobacco Use [...] Description 03/17/2025 11:00 AM EST Office Visit [address] [address] Rhoda Melvin CNM [address] [place] [address] [phone] 03/18/2025 10:15 AM EST Office Visit [address] [phone] Shireen Stout MD [address] [place] [address] [phone] documented as of this encounter Procedures Procedure Name Priority Date/Time Associated Diagnosis Comments HEMOGLOBIN A1C (EXTERNAL RESULTS ONLY) Routine 04/20/2022 3:08 PM EST documented in this encounter Results * (ABNORMAL) Hemoglobin A1c (04/20/2022 3:08 PM EST) Hemoglobin A1C 8.9(A) 4.0 - 6.0 % Comment:[facility] End[facility]ology & Diabetes [place] 04/20/2022 3:08 PM EST Narrative Eliza Salgado - 04/20/2022 3:08 PM EST A1c performed at [facility] Endocrinology Diabetes [place] us Historical Provider POINT OF CARE TEST ENTER/ EDIT ORDERABLES Final Result documented in this encounter Visit Diagnoses Not on filedocumented in this encounter Care Teams Refuse Collector Supervisor Relationship Specialty Start Date End Date Tonja Guzmán FNP PCP - General Family Medicine 12/04/21 09/07/22 Shireen Stout MD [address] [place] [address] PCP - General Internal Medicine 09/08/22 [facility] 09/22/24 12/28/24 [facility] 12/01/24 documented as of this encounter
--- OUTSIDE RECORDS SUMMARY | 2025-03-09 11:44 | XMS_ITS | Encounter Summary ---
Author Organization [employer] Address [address] [place] [facility] 7t [place] [address] Care Team Providers Care Puff Ironer Name Role Phone Shireen Stout MD Primary Care Pro vider Reason for Visit * Reason Comments Med Refill Encounter Details Date Type Department Care Team (Late st Contact Info) Description 07/27/2023 Refill [facility] CHC MED & PEDS [address] [place], [place] [phone] Shireen Stout MD 230 [place] [address] Diabetic peripheral neuropathy associated with type 2 [...] Description 03/17/2025 11:00 AM EST Office Visit [facility] MEDICINE [address] [place] [address] Rhoda Melvin CNM [address] [place] [address] 03/18/2025 10:15 AM EST Office Visit [address] [address] Shireen Stout MD [address] [place] [phone] documented as of this encounter Visit Diagnoses Diagnosis Diabetic peripheral neuropathy associated with type 2 diabetes mellitus (HCC) documented in this encounter Additional Health Concerns Assessment Noted Time PHQ-9 Depression Total Score: 5 12/16/19 23 2:02 PM EDT documented as of this encounter Care Teams Puff Ironer Relationship Specialty Start Date End Date Shireen Stout MD [address] [place] [address] PCP - General Internal Medicine 6/2/23 [facility] 09/22/24 12/28/24 [facility] 12/01/24 documented as of this encounter
--- OUTSIDE RECORDS SUMMARY | 2025-03-09 11:44 | XMS_ITS | Encounter Summary ---
Author Organization [employer] Address [address] [facility] 7t [place] [address] Care Team Providers Care Materials Inspector Name Role Phone Shireen Stout MD Primary Care Pro vider Reason for Visit * Reason Comments Med Refill Encounter Details Date Type Department Care Team (Late st Contact Info) Description 10/17/2023 Refill [facility] [address] [place], [place] [phone] Bruna Yusuf FNP [address] [place] [address] Social History Tobacco Use Types [...] Description 03/17/2025 11:00 AM EST Office Visit [facility] MEDICINE [address] [place] [address] Rhoda Melvin CNM [address] [place] [address] 03/18/2025 10:15 AM EST Office Visit [address] [address] Shireen Stout MD [address] [place] [address] documented as of this encounter Visit Diagnoses Not on filedocumented in this encounter Additional Health Concerns Assessment Noted Time PHQ-9 Depression Total Score: 5 12/16/19 23 2:02 PM EDT documented as of this encounter Care Teams Materials Inspector Relationship Specialty Start Date End Date Shireen Stout MD [address] [place] [address] PCP - General Internal Medicine 09/08/22 [facility] 09/22/24 12/28/24 [facility] 12/01/24 documented as of this encounter
--- OUTSIDE RECORDS SUMMARY | 2025-03-09 11:44 | XMS_ITS | Encounter Summary ---
Author Organization [employer] Address [address] [facility] 7t [place] [address] Care Team Providers Care Defect Repairer Glassware Name Role Phone Shireen Stout MD Primary Care Pro vider Reason for Visit * Reason Comments Med Refill Encounter Details Date Type Department Care Team (Late st Contact Info) Description 07/27/2023 Refill [facility] CHC MED & PEDS [address] [place], [place] [phone] Shireen Stout MD 230 [place] [address] Diabetic peripheral neuropathy associated with type 2 [...] Description 03/17/2025 11:00 AM EST Office Visit [facility] MEDICINE [address] [place] [address] Rhoda Melvin CNM [address] [place] [phone] 03/18/2025 10:15 AM EST Office Visit [address] [address] Shireen Stout MD [address] [place] [address] documented as of this encounter Visit Diagnoses Diagnosis Diabetic peripheral neuropathy associated with type 2 diabetes mellitus (HCC) documented in this encounter Additional Health Concerns Assessment Noted Time PHQ-9 Depression Total Score: 5 12/16/19 23 2:02 PM EDT documented as of this encounter Care Teams Defect Repairer Glassware Relationship Specialty Start Date End Date Shireen Stout MD [address] [place] [address] PCP - General Internal Medicine 6/2/23 [facility] 09/22/24 12/28/24 [facility] 12/01/24 documented as of this encounter
--- OUTSIDE RECORDS SUMMARY | 2025-03-09 11:44 | XMS_ITS | Encounter Summary ---
Author Organization [employer] Address [address] [facility] 7t [place] [address] Care Team Providers Care Assembly Room Supervisor Name Role Phone Shireen Stout MD Primary Care Pro vider Reason for Visit * Reason Comments Med Refill Encounter Details Date Type Department Care Team ([facility] st Contact Info) Description 04/05/2023 Refill [facility] MEDICINE 230 [place], [place] [phone] Enedelia Coley MD 230 [place], [place] [phone] Social History Tobacco Use Types Packs/Day Years [...] Description 03/17/2025 11:00 AM EST Office Visit [facility] MEDICINE [address] [place] [address] Rhoda Melvin CNM [address] [place] [address] 03/18/2025 10:15 AM EST Office Visit [facility] MEDICINE [address] [place] [address] Shireen Stout MD [address] [place] [address] documented as of this encounter Visit Diagnoses Not on filedocumented in this encounter Additional Health Concerns Assessment Noted Time PHQ-9 Depression Total Score: 5 12/16/19 23 2:02 PM EDT documented as of this encounter Care Teams Assembly Room Supervisor Relationship Specialty Start Date End Date Shireen Stout MD [address] [place] [address] PCP - General Internal Medicine 09/08/22 [facility] 09/22/24 12/28/24 [facility] 12/01/24 documented as of this encounter
--- OUTSIDE RECORDS SUMMARY | 2025-03-09 11:44 | XMS_ITS | Encounter Summary ---
Author Organization [employer] Address [address] [facility] 7t [place] [address] Care Team Providers Care Emr Specialist Name Role Phone Shireen Stout MD Primary Care Pro vider Reason for Visit * Reason Onset Date Comments Nurse Triage 12/03/2024 Encounter Details Date Type Department Care Team ([facility] st Contact Info) Description 12/03/2024 Telephone [facility] MEDICINE [address] [place] [address] Shireen Stout MD [address] [place] [address] Nurse Triage Social History Tobacco Use Types [...] have a UTI. Call to Pt with [facility] certification and selection specialist ID [id number]. Pt is speaking for Pt who is [...] 7pm to come in the morning instead. Wind Turbine Installer did indicate that on [place] Pt request. [...] become worse * Telephone Encounter - Nicolas Michele - 12/03/2024 4:12 PM EDT Symptom: Urine Symptoms Outcome: Schedule an urgent appointment (within 4 hours) or talk to a nurse or provider soon Reason: Pain when passing urine (peeing) The caller accepted this outcome. Pt is haitian soeaking Visiting nurse speaks vincentian documented in this encounter Plan of Treatment Upcoming Encounters Date Type Department Care Team (Late st Contact Info) Description 03/17/2025 11:00 AM EST Office Visit [facility] MEDICINE [address] [place] [address] Rhoda Melvin CNM [address] [place] [address] 03/18/2025 10:15 AM EST Office Visit [address] [address] Shireen Stout MD [address] [place] [address] documented as of this encounter Visit Diagnoses Not on filedocumented in this encounter Additional Health Concerns Assessment Noted Time PHQ-9 Depression Total Score: 11 025 9:44 AM EDT documented as of this encounter Care Teams Emr Specialist Relationship Specialty Start Date End Date Shireen Stout MD [address] [place] [address] PCP - General Internal Medicine 09/08/22 [facility] 09/22/24 12/28/24 [facility] 12/01/24 documented as of this encounter
--- OUTSIDE RECORDS SUMMARY | 2025-03-09 11:44 | XMS_ITS | Clinical Summary ---
Author Organization [employer] Address [address] [place] [address] 7[address] [place] [address] Care Team Providers Care Structural Steel Worker Helper Name Role Phone Shireen Stout [...] eye twice daily Active [facility] Test blood sugar twice daily as directed [...] Refills, Soft Stop, 06/18/24 12:20:00 PM EDT, [facility], Partial fill upon patient [...] mouth Once per day. 30 tablet 11 /06/20 25 09/06/2 026 Active gabapentin (Neurontin) 300 MG capsule Take 1 capsule (300 mg) by mouth at bedtime. 90 capsule 12/16/19 Active acetaminophen (Tylenol Extra Strength) 500 MG tablet Take 1 tablet (500 mg) by mouth every 6 (six) hours if needed for mild pain or fever. 40 tablet 01/16/20 Active ertapenem (INVanz) 1 g injection 02/10/20 025 Active Active Problems Problem Noted Date Diagnosed Date [...] prior to hospitalization. During the hospitalization and [facility] stay, it was changed to oxybutynin. - [...] OP referral and reports was connected with [facility] in the past (about 4 / 5 [...] -2.7-on tx already -vaccines: hepAx2,hepBx3-Immune , Covid 53i4-Vkhesnyz 10/2022, e91p7-m/p 20 x1, tdap 2022 ,s/p zoster vaccinex2 [...] value of -2.7-on tx already -vaccines: hepAx2,hepBx3,covid 95v0-Qtqufubv today, s46u7-c/p 20 x1, tdap 2011- today booster,s/p zoster [...] associated w vascular etiology and rec for mechanical test technician referral -pt was tx already w keflex 500 BID x 5 days at last apt w no change in rash -advised pt to raise leg -referred to mechanical test technician -pt using fungal cream chronically px by vascular Assessment & Plan (10/25/2022 1:41 PM EDT): Pt w chronic lower left leg pain and erythema -possible vascular in nature ? -I called today her vascular Dr Adame # [phone]-fdx staff pt was last seen in 04/2022 [...] some time -pt will check w her leak inspector if had recently any DEXA scan otherwise [...] Vit D 1999 -will check w her leak inspector if had recently any DEXA scan otherwise [...] heterogeneous left thyroid nodule. -pt f w leak inspector-advised pt to continue care w specialist ,pt will discuss tomorrow w specialist if had recently another US or if plan to repeat Assessment & Plan (10/25/2022 1:17 PM EDT): -thyroid US 2019: Small right lobe. Previously identified small right thyroid nodule is not appreciated. Enlarged left lobe. No appreciable change in the solitary, large, heterogeneous left thyroid nodule. -pt f w leak inspector-advised pt to continue care w specialist ,request [...] on basal insulin? --I called to her leak inspector-Dr Diamond at # [phone] at previous visit to discuss case. I [...] refused. -pt has f up apt w leak inspector tomorrow and advised to discuss about basal insulin ? - director of student financial aid 11/2022 mild non proliferative diabetic retinopathy to f in 6 mo -referred to learning strategist today Assessment & Plan (11/22/2022 7:42 PM EDT): Pt w DM2 -insulin dependent w neuropathy Pt is on rapid insulin 220 u in am only and invokana 10/2022 hb1AC is 7.9<---8.9-elevated Gl at 259 .microalb neg , LDL 66 -unsure why pt is not on basal insulin? --I called to her leak inspector-Dr Diamond at # [phone] at previous visit to discuss case. I [...] refused. -pt has f up apt w leak inspector tomorrow and advised to discuss about basal insulin ? - director of student financial aid 11/2022 mild non proliferative diabetic retinopathy to f in 6 mo -referred to learning strategist today Assessment & Plan (10/25/2022 1:12 PM EDT): Pt w DM2 -insulin dependent w neuropathy Pt is on rapid insulin 220 u in am only and invokana -today hb1AC is 8.9-elevated CBG at 392--> rechecked was 302 -unsure why pt is not on basal insulin? --I called today her leak inspector-Dr Diamond at # [phone] to discuss case. I left my cell [...] upcoming meal -will await call from her leak inspector to discuss plan of care and advised pt to call her specialist at to schedule apt for uncontrolled DM ,likely associated w her ongoing alcohol intake. -also was referred to DM educational by her leak inspector -referred today to director of student financial aid -will refer to learning strategist at next apt -DM labs Essential hypertension [...] 466, HR 74x' 10/2022 Microalb neg - director of student financial aid 11/2022 Mild non proliferative diabetic retinopathy to [...] 466, HR 74x' 10/2022 Microalb neg - director of student financial aid 11/2022 Mild non proliferative diabetic retinopathy to f up in 6 mo -continue BP meds Assessment & Plan (10/25/2022 5:54 PM EDT): BP is controlled on ARBs -echo 2016 : EF between 55-60 %.Normal -nuclear stress test 2016: without EKG changes meeting criteria for ischemia. -cardiac cath 2016: non obstructive CAD -referred to director of student financial aid -microalb -will check EKG at next apt [...] order new one -referred back to her ornamental metal erector to continue care-has apt on 12/2022 Assessment [...] to start trelegy -referred back to her ornamental metal erector to continue care -request ALFRED ANDERSON to [...] diet and exercise,discussed healthy life style -discussed milling planer operator referral --referred already has apt for next month Assessment & Plan (10/25/2022 1:12 PM EDT): Advised pt to improve diet and exercise,discussed healthy life style -discussed milling planer operator referral --referred today Smoker 03/25/2015 Assessment [...] to discuss with her primary care or child welfare specialist on getting treatment for alcohol dependence. We discussed using insulin pump, as referenced in leak inspector note but this time patient does not feel that she can manage an insulin pump independently. Reviewed with patient how to treat hypoglycemia, hypoglycemic handout in Croatian given to patient Encounters Date Type Department Care Team Description 02/24/2025 Telephone [facility] [address] [place] [phone] Shireen Stout MD chart prep 02/20/[address] [address] Shireen Stout MD call back needed 02/10/2025 Telephone [facility] [address] [place] [address] Nohelia Pandey, Carolee [facility] Endocr[facility]ology 02/10/2025 Patient Outreach [address] [address] Shireen Stout MD Transition Of Care (Tcm) (HDF- scheduled and SDOH screening negative and Tobacco screening negative) 02/10/[address] [address] Shireen Stout MD Hospital Follow-up 02/04/2025 Orders Only GENERIC EXTERNAL DATA DEPARTMENT Provider, Generic External Data 01/22/2025 Orders Only [address] [address] Shireen Stout MD Type 2 diabetes mellitus with hyperglycemia, without long-term current use of insulin (HCC) (Primary Dx) 01/22/[address] [address] Shireen Stout MD Referral 01/15/2025 1:40 PM EDT Office Visit [facility] [address] [place] [phone] Neda Rae DO Pain of left great toe (Primary Dx); Cellulitis of left lower extremity 01/15/2025 Travel 01/08/[address] [address] Shireen Stout MD 12/30/2024 Telephone [facility] [address] [place] [address] Maricruz Amato [place] 12/18/[address] [phone] Kavitha Ortiz, RN NTTS 12/13/2024 Results Follow-Up [facility] [address] [place] [address] Lisa Mccurdy MD POCT Hgb A1c, POCT Glucose, Basic Metabolic Panel, Additional followed-up results: 4 12/13/2024 Orders Only [facility] [address] [place] [address] Lisa Mccurdy MD Leg swelling (Primary Dx); Shortness of breath; Heart failure with mid-range ejection fraction (HFmEF) (CMS/HCC) 12/11/2024 9:30 AM EDT Office Visit [facility] [address] [place] [address] Lisa Mccurdy MD Essential hypertension (Primary Dx); Alcoholic cirrhosis, unspecified whether ascites present (CMS/HCC); Alcohol use disorder, severe, dependence (CMS/HCC); Pulmonary emphysema, unspecified emphysema type (CMS/HCC); Diabetic peripheral neuropathy associated with type 2 diabetes mellitus ([facility]/HCC); Moderate recurrent major depression ([facility]/HCC); OAB (overactive bladder); Diabetes mellitus type 2, insulin dependent (CMS/HCC); Leg swelling; Vitamin D deficiency; Depressive disorder 12/11/2024 Travel from Last 3 Months Immunizations Immunization Administration [...] Description 03/17/2025 11:00 AM EST Office Visit [address] [address] Wu Arroyo, JAKI [address] [place] [phone] 03/18/2025 10:15 AM EST Office Visit [address] [address] Shireen Stout MD [address] [place] [address] Health Maintenance Due Date Last Done Comments CT Colonography 1958 FIT DNA/Cologuard 1960 FIT 1960 FOBT 1960 Sigmoidoscopy 1960 Diabetes: Foot Exam 1968 Eye Exam 1968 Alcohol/Substance Use Screening 1970 Hepatitis B Vaccines (1 of 3 - Risk 3-dose series) 2018 05/15/2008, 12/06/2007, 08/29/2007 COVID-19 Vaccine ( season) 2024 03/05/2024, 06/07/2023, 10/25/2022, Additional history exists Influenza Vaccine (#1) 2024 , 01/23/2023, 01/26/2021, Additional history exists Depression Monitoring 02/21/2025 08/21/2024, 025 Diabetes: Urine Protein Screening 02/27/2025 02/28/2024, 09/10/2020, 06/22/2020, Additional history exists Lipid Panel 02/27/2025 02/28/2024, 08/07, 09/10/2020 Diabetes: Hemoglobin A1C 03/12/2025 025, 08/21/2024, 03/05/2024, Additional history exists Mammogram [...] on patient's age to complete this topic Goals Goal Patient Goal Type Associated Problems Recent Progress Patient-Stated? Author Help patients manage their type 2 diabetes Care Plan Help patients manage their type 2 diabetes No Nohelia Pandey, PharmD Weekly blood pressure task Care Plan Weekly blood pressure task No Andrew Pandeya, PharmD Help patients manage their type 2 diabetes Care Plan Help patients manage their type 2 diabetes No Andrew Pandeya, PharmD Patient has chronic kidney disease Care Plan Patient has chronic kidney disease No Andrew Pandeya, PharmD Help patients manage their type 2 diabetes Care Plan Help patients manage their type 2 diabetes No Andrew Pandeya, PharmD Patient has diabetic neuropathy Care Plan Patient has diabetic neuropathy No Andrew Pandeya, PharmD Weekly blood pressure task Care Plan Weekly blood pressure task No Andrew Pandeya, PharmD Weekly blood pressure task Care Plan Weekly blood pressure task No Andrew Pandeya, PharmD Patient has chronic kidney disease Care Plan Patient has chronic kidney disease No Andrew Pandeya, PharmD Patient has chronic kidney disease Care Plan Patient has chronic kidney disease No Andrew Pandeya, PharmD Patient has diabetic neuropathy Care Plan Patient has diabetic neuropathy No Andrew Pandeya, PharmD Patient has diabetic neuropathy Care Plan Patient has diabetic neuropathy No Andrew Pandeya, PharmD Weekly blood pressure task Care Plan Weekly blood pressure task No Nicolas Bautista Weekly blood pressure task Care Plan Weekly blood pressure task No Nicolas Bautista Weekly blood pressure task Care Plan Weekly blood pressure task No Nicolas Bautista Patient has chronic kidney disease Care Plan Patient has chronic kidney disease No Nicolas Bautista Patient has chronic kidney disease Care Plan Patient has chronic kidney disease No Nicolas Bautista Patient has chronic kidney disease Care Plan Patient has chronic kidney disease No Nicolas Bautista Patient has diabetic neuropathy Care Plan Patient has diabetic neuropathy No Nicolas Bautista Patient has diabetic neuropathy Care Plan Patient has diabetic neuropathy No Nicolas Bautista Patient has diabetic neuropathy Care Plan Patient has diabetic neuropathy No Nicolas Bautista Weekly blood pressure task Care Plan Weekly blood pressure task No Majo Gibbs MA Weekly blood pressure task Care Plan Weekly blood pressure task No Majo Gibbs MA Weekly blood pressure task Care Plan Weekly blood pressure task No SaiMajo potts [place] Patient has chronic kidney disease Care Plan Patient has chronic kidney disease No Majo Gibbs [place] Patient has chronic kidney disease Care Plan Patient has chronic kidney disease No Majo Gibbs [place] Patient has chronic kidney disease Care Plan Patient has chronic kidney disease No SaiMajo potts [place] Patient has diabetic neuropathy Care Plan Patient has diabetic neuropathy No DunkirkMajo francis [place] Patient has diabetic neuropathy Care Plan Patient has diabetic neuropathy No DunkirkMajo francis [place] Patient has diabetic neuropathy Care Plan Patient has diabetic neuropathy No SaiMajo potts MA Weekly blood pressure task Care Plan Weekly blood pressure task No DunkirkMajo potts [place] Weekly blood pressure task Care Plan Weekly blood pressure task No DunkirkMajo francis MA Weekly blood pressure task Care Plan Weekly blood pressure task No SaiMajo potts [place] Patient has chronic kidney disease Care Plan Patient has chronic kidney disease No SaiMajo potts [place] Patient has chronic kidney disease Care Plan Patient has chronic kidney disease No SaiMajo potts [place] Patient has chronic kidney disease Care Plan Patient has chronic kidney disease No SaiMajo potts [place] Patient has diabetic neuropathy Care Plan Patient has diabetic neuropathy No DunkirkMajo potts [place] Patient has diabetic neuropathy Care Plan Patient has diabetic neuropathy No SaiMajo potts [place] Patient has diabetic neuropathy Care Plan Patient has diabetic neuropathy No SaiMajo potts [place] Weekly blood pressure task Care Plan Weekly blood pressure task No Negra Mcdermott RN Weekly blood pressure task Care Plan Weekly blood pressure task No Negra Mcdermott RN Weekly blood pressure task Care Plan Weekly blood pressure task No Negra Mcdermott RN Patient has chronic kidney disease Care Plan Patient has chronic kidney disease No Negra Mcdermott RN Patient has chronic kidney disease Care Plan Patient has chronic kidney disease No Negra Mcdermott RN Patient has chronic kidney disease Care Plan Patient has chronic kidney disease No Negra Mcdermott RN Patient has diabetic neuropathy Care Plan Patient has diabetic neuropathy No Negra Mcdermott RN Patient has diabetic neuropathy Care Plan Patient has diabetic neuropathy No Negra Mcdermott RN Patient has diabetic neuropathy Care Plan Patient has diabetic neuropathy No Negra Mcdermott insecticide expert Procedure Name Priority Date/Time Associated Diagnosis Comments [...] EDT Alcoholic cirrhosis, unspecified whether ascites present ([facility]/HCC) TSH W/REFLEX TO FT4 Routine 12/11/2024 1 [...] Whole Blood 77 60 - 115 mg/dL [facility] Comment:METER #: [id number] 02/04/2025 7:06 PM EDT 02/04/2025 7:11 PM EDT us Generic External Data Provider LAB BLOOD ORDERAB LES Final Result [facility] [address] [place] [phone] * (ABNORMAL) Urinalysis, Complete, with Reflex to Culture (02/04/2025 5:53 PM EDT) Color Urine Yellow [facility] Appearance Urine Clear [facility] PH >=9.0 5.0 - 9.0 [facility] Glucose Urine UA >=1000(A) Negative mg/dL [facility] Urine Blood Trace(A) Negative [facility] Specific [place] - Urine >=1.030(H) 1.005 - 1.025 [facility] Urine Protein Negative Neg-Trace mg/dL [facility] Urine Ketones Negative Negative mg/dL [facility] Nitrite Urine Positive(A) Negative [facility] Leukocyte Esterase Urine Moderate (2+)(A) Negative [facility] RBC Urine 0-2 0 - 2 /HPF [facility] Urine WBC >50(A) 0 - 5 /HPF [facility] Urine Squamous Epithelial Cell 0-2 0 - 2 /HPF [facility] Urine Bacteria 2+ None Seen [facility] Hyaline Casts, Urine 0-2 0 - 2 /LPF [facility] 02/04/2025 5:53 PM EDT 02/04/2025 5:58 PM EDT Narrative [facility] - 02/04/2025 6:45 PM EDT [id number], Catheterized us Generic External Data Provider LAB URINE ORDERAB LES Final Result Performing Organization Address City/State/[facility] Co de Phone Number [facility] [address] [place] [phone] * (ABNORMAL) VENOUS BLOOD GAS (02/04/2025 4:59 PM EDT) VBG pH 7.52(H) 7.32 - 7.43 [facility] Comment:METER #: [id number] additional_comment: Cb nmania VBG PCO2 42 mmHg [facility] Comment:METER #: [id number] additional_comment: Cb nmania VBG PO2 42 mmHg [facility] Comment:METER #: [id number] additional_comment: Cb nmania VBG Base Excess 11.2 mmol/L [facility] Comment:METER #: [id number] additional_comment: Donnell smiley VBG HCO3 35(H) 22 - 26 mmol/L [facility] Comment:METER #: [id number] additional_comment: Donnell smiley O2 Sat, [place] 62.0 % [facility] Comment:METER #: [id number] additional_comment: Donnell smiley 02/04/2025 4:59 PM EDT 02/04/2025 5:19 PM EDT us Generic External Data Provider LAB BLOOD ORDERAB LES Final Result Performing Organization Address City/State/[facility] Co de Phone Number [facility] [address] [place] [address] [phone] * CT Abdomen Pelvis w/ Contrast (02/04/2025 4:33 PM EDT) Anatomical Region Laterality Modality Body, Pelvis, Abdomen Computed T omography 02/04/2025 4:33 PM EDT Narrative 02/04/2025 5:25 PM EDT [place] [address] CT Scan Report Signed Patient: Shireen Tavarez MR#: [id number] 1 : 1960 Acct:[id number] Age/Sex: 64 / F ADM Date: 02/04/25 Loc: HO.ED Attending Dr: Ordering Physician: Doe Reed MD Date of Service: 02/04/25 Procedure(s): CT abdomen pelvis w IV con Accession Number(s): [id number] cc: Shireen Stout MD; Doe Reed MD Report Number: [id number]: Total DLP = 446.00 mGy-cm Reason for [...] 02/04/25 1722 DD/ 1633 TD/TT: 02/04/25 1644 Square Cutter: JUNIOR Procedure Note Donotuseinterpreter, Image - 02/04/[address] [address] [address] Scan Report Signed Patient: Shireen TavarezMR#: [id number] 1 : 9Acct:[id number] Age/Sex: 64 / FADM Date: 02/04/25 Loc: HO.ED Attending Dr: Ordering Physician: Doe Reed MD Date of Service: 02/04/25 Procedure(s): CT abdomen pelvis w IV con Accession Number(s): [id number] cc: Shireen Stout MD; Doe Reed MD Report Number: [id number]: Total DLP = 446.00 mGy-cm Reason for [...] MD 02/04/2025 05:22 PM EDT Dictated By: Gnea Miranda MD Signed By: <Electronically signed by Gena Miranda MD in OV> 02/04/25 1722 DD/ 1633 TD/TT: 02/04/25 1644 Square Cutter: JUNIOR [facility] External Provider IMG CT PROCEDURES Final Result * CT Lung Screening Low dose (01/29/2025 1:10 PM EDT) Anatomical Region Laterality Modality Lung Computed Tomogra phy 01/29/2025 1:10 PM EDT Narrative 01/29/2025 1:12 PM EDT [address] [address] [address] Scan Report Signed Patient: Shireen Tavarez MR#: [id number] 1 : 1960 Acct:[id number] Age/Sex: 64 / F ADM Date: 01/28/25 Loc: HO.CT Attending Dr: Keri Cohen PA-C Ordering Physician: Keri Cohen PA-C Date of Service: 01/28/25 Procedure(s): CT lung screening Accession Number(s): [id number] cc: Keri Cohen PA-C; Shireen Stout MD Report Number: [id number]: Total DLP = 34.00 mGy-cm Reason for Exam: Z87.891 - Personal history of nicotine dependence CLINICAL HISTORY: Z87.891 - Personal history of nicotine dependence CT lung cancer screening (LDCT) Comparison: [place]/SR - CT LUNG SCREENING - 01/14/24 09:50 [...] 01/29/25 1311 DD/ 1310 TD/TT: 01/29/25 1310 Square Cutter: Procedure Note Donotuseinterpreter, Image - 01/29/[address] [address] [address] Scan Report Signed Patient: Shireen TavarezMR#: [id number] 1 : 9Acct:[id number] Age/Sex: 64 / FADM Date: 01/28/25 Loc: HO.CT Attending Dr: Keri Cohen PA-C Ordering Physician: Keri Cohen PA-C Date of Service: 01/28/25 Procedure(s): CT lung screening Accession Number(s): [id number] cc: Keri Cohen PA-C; Shireen Stout MD Report Number: [id number]: Total DLP = 34.00 mGy-cm Reason for Exam: Z87.891 - Personal history of nicotine dependence CLINICAL HISTORY: Z87.891 - Personal history of nicotine dependence CT lung cancer screening (LDCT) Comparison: [place]/SR - CT LUNG SCREENING - 01/14/24 09:50 [...] 01/29/25 1311 DD/ 1310 TD/TT: 01/29/25 1310 Square Cutter: us [facility] External Provider IMG CT PROCEDURES Edited Result - Final * US Pelvis Transvaginal (01/23/2025 2:18 PM EDT) Anatomical Region Laterality Modality Pelvis Ultrasound 01/23/2025 2:18 PM EDT Narrative 01/23/2025 3:12 PM EDT [address] [address] Ultrasound Report Signed Patient: Shireen Tavarez MR#: [id number] 1 : 1960 Acct:[id number] Age/Sex: 64 / F ADM Date: 01/23/25 Loc: HO.US Attending Dr: Melchor Nunn MD Ordering Physician: Melchor Nunn MD Date of Service: 01/23/25 Procedure(s): US pelvic and transvaginal Accession Number(s): [id number] cc: Shireen Stout MD; Melchor Nunn MD [...] 01/23/25 1509 DD/ 1418 TD/TT: 01/23/25 1435 Square Cutter: Procedure Note Donotuseinterpreter, Image - 01/23/2025 [place] [address] Ultrasound Report Signed Patient: Shireen TavarezMR#: [id number] 1 : 9Acct:[id number] Age/Sex: 64 / FADM Date: 01/23/25 Loc: HO.US Attending Dr: Melchor Nunn MD Ordering Physician: Melchor Nunn MD Date of Service: 01/23/25 Procedure(s): US pelvic and transvaginal Accession Number(s): [id number] cc: Shireen Stout MD; Melchor Nunn MD [...] 01/23/25 1509 DD/ 1418 TD/TT: 01/23/25 1435 Square Cutter: us [facility] External Provider IMG US PROCEDURES Final Result * XR Toes 2+ Left (01/15/2025 3:59 PM EDT) Anatomical Region Laterality Modality Lower Extremities, Toes Left Radiogra phic Imaging 01/15/2025 3:59 PM EDT Narrative 01/15/2025 4:23 [place] [address] XRay Report Signed Patient: Shireen Tavarez MR#: [id number] 1 : 1960 Acct:[id number] Age/Sex: 64 / F ADM Date: 01/15/25 Loc: .HHCX Attending Dr: Neda Rae DO Ordering Physician: Neda Rae DO Date of Service: 01/15/25 Procedure(s): XR toe LT min 2V Accession Number(s): [id number] cc: Neda Rae DO Reason for Exam: [...] 01/15/25 1620 DD/ 1559 TD/TT: 01/15/25 1600 Square Cutter: Procedure Note Donotuseinterpreter, Image - 01/15/[address] [address] XRay Report Signed Patient: Shireen TavarezMR#: [id number] 1 : 9Acct:[id number] Age/Sex: 64 / FADM Date: 01/15/25 Loc: HO.HHCX Attending Dr: Neda Rae DO Ordering Physician: Neda Rae DO Date of Service: 01/15/25 Procedure(s): XR toe LT min 2V Accession Number(s): [id number] cc: Neda Rae DO Reason for Exam: [...] 01/15/25 1620 DD/ 1559 TD/TT: 01/15/25 1600 Square Cutter: Neda Rae DO IMG XR PROCEDURES Final Resu lt * Vitamin D, 25-Hydroxy, Total, Immunoassay (12/11/2024 11:04 AM EDT) Vitamin D 25-OH Total 36.6 >30 ng/mL [facility] Comment: Health Based Reference Values*< 20 ng/mL Jxqikknbb22-10 ng/mL Insufficient> 30 ng/mL Sufficient*Acosta BERMUDEZ. N [...] MD LAB BLOOD ORDERABLES Final Resul t [facility] [address] [place] [phone] * TSH with Reflex to Free T4 (12/11/2024 11:04 AM EDT) TSH reflex Free T4 0.39 0.32 - 4.0 uIU/mL [facility] Blood 12/11/2024 11:0 4 AM EDT 12/11/2024 1:28 PM EDT Lisa Mccurdy MD LAB BLOOD ORDERABLES Final Resul t Performing Organization Address [facility]/ZIP Co de Phone Number [facility] [address] [place] [address] [phone] * (ABNORMAL) NT-proBNP (12/11/2024 11:04 AM EDT) NT-proBNP 517(A) <125 pg/mL [facility] Comment:THIS TEST WAS PERFOR MED AT:[employer] [place] [phone] AGUIRRE MD Venous blood specimen / Unknown 12/11/2024 11:04 AM EDT 12/11/2024 1:16 PM EDT Lisa Mccurdy MD LAB BLOOD ORDERABLES Final Resul t Performing Organization Address [facility] Co de Phone Number [facility] [address] [place] [phone] [phone] * (ABNORMAL) CBC auto differential (12/11/2024 11:04 AM EDT) Pathologist [facility] White Blood Count 5.6 4.8 - 10.8 X10*3/uL [facility] Red Blood Count 3.38(L) 4.20 - 5.50 X10*6/uL [facility] [facility] Hemoglobin 10.4(L) 12.0 - 16.0 g/dl [facility] Hematocrit 32.1(L) 37.0 - 47.0 % [facility] Mean Corpuscular Volume 95.0 80.0 - 98.0 fL [facility] Mean Corpuscular Hemoglobin 30.8 27.0 - 33.0 pg [facility] Mean Corpuscular HGB Conc 32.4 31.0 - 35.0 g/dl [facility] Red Cell Distribution Width 15.6 11.0 - 16.0 % [facility] Platelet Count 199 160 - 400 X10*3/uL [facility] Mean Platelet Volume 10.1 9.4 - 12.3 fL [facility] Neutrophils Percent Auto 65.0 45 - 73 % [facility] Imm Gran Pct Auto 0.5(H) 0.0 - 0.4 % [facility] Lymphocytes Percent Auto 25.4 20 - 40 % [facility] Monocytes Percent Auto 6.6 2 - 11 % [facility] Eosinophils Percent Auto 2.0 0 - 4 % [facility] Basophils Percent Auto 0.5 0 - 2 % [facility] NRBC Pct Auto 0.0 0.0 - 0.2 /100WBC [facility] Neutrophils Absolute Auto 3.6 2.0 - 8.3 x10*3/uL [facility] Imm Gran Abs Auto 0.03 0.00 - 0.03 X10*3/uL [facility] Lymphocytes Absolute Auto 1.4 1.2 - 4.9 X10*3/uL [facility] Monocytes Absolute Auto 0.4 0.1 - 1.2 X10*3/uL [facility] Eosinophils Absolute Auto 0.1 0.0 - 0.4 X10*3/uL [facility] Basophils Absolute Auto 0.0 0.0 - 0.2 X10*3/uL [facility] NRBC Abs Auto 0.000 0.0 - 0.012 X10*3/uL [facility] Blood Venous blood specimen / Unknown 12/11/2024 11:04 AM EDT 12/11/2024 1:28 PM EDT us Lisa Mccurdy MD LAB BLOOD ORDERABLES Final Resul t [facility] [address] [place] [phone] * (ABNORMAL) Basic Metabolic Panel (12/11/2024 11:04 AM EDT) Sodium 144 135 - 145 mmol/L [facility] Potassium 3.6 3.3 - 5.1 mmol/L [facility] Chloride 106 96 - 108 mmol/L [facility] Carbon Dioxide 31(H) 22 - 29 mmol/L [facility] Anion Gap 11(L) 12 - 20 [facility] Urea Nitrogen (BUN) 5(L) 9 - 16 mg/dL [facility] Creatinine, Serum 0.56 0.5 - 1.4 mg/dL [facility] Estimated Glomerular Filt Rate >60 [facility] Comment:Chronic Kidney Disea se: Estimated GFR < 60 mL/min/1.37k0Ezthqv Kidney Disease: Estimated GFR < 15 mL/min/1.73m2 Glucose 182(H) 60 - 115 mg/dL [facility] Calcium 9.2 8.4 - 10.2 mg/dL [facility] Blood Venous blood specimen / Unknown 12/11/2024 11:04 AM EDT 12/11/2024 1:28 PM EDT Lisa Mccurdy MD LAB BLOOD ORDERABLES Final Resul t Performing Organization Address City/State/[facility] Co de Phone Number [facility] [address] [place] [phone] * POCT Hgb A1c (12/11/2024 9:46 [...] AM EDT Narrative 07/06/2024 8:14 PM EDT [facility] [address] [place] [address] Mammography Report Signed Patient: Shireen Tavarez MR#: [id number] 1 : 1960 Acct:[id number] Age/Sex: 63 / F ADM Date: 06/30/24 Loc: HO.MAMMO Attending Dr: Shireen Krishnan MD Ordering Physician: Shireen Stout MD Re sults: 2Benign Findings Date of Service: 06/30/24 Follow Up: 1 Year From Orig inal Mammogram Procedure(s): MM tomosynthesis screening BI Accession Number(s): [id number] cc: Shireen Stout MD EXAMINATION: MM SCREENING [...] OV> 07/06/242010 DD/ 1015 TD/TT: 06/30/24 1029 Square Cutter: Procedure Note Donotuseinterpreter, Image - 07/06/2024 [facility] [address] [place], [place] [address] Mammography Report Signed Patient: Shireen TavarezMR#: [id number] 1 : 1960cct:[id number] Age/Sex: 63 / FADM Date: 06/30/24 Loc: HO.MAMMO Attending Dr: Shireen Krishnan MD Ordering Physician: Shireen Stout sults: 2Benign Findings Date of Service: 06/30/24Follow Up: 1 Year From Orig inal Mammogram Procedure(s): MM tomosynthesis screening BI Accession Number(s): [id number] cc: Shireen Stout MD EXAMINATION: MM SCREENING [...] OV> 07/06/242010 DD/ 1015 TD/TT: 06/30/24 1029 Square Cutter: us Shireen Krishnan MD IMG BI PROCEDURES Edited Result - Final * Hepatitis C Antibody with Reflex to HCV, RNA, Quantitative, Real-Time PCR (02/28/2024 11:10 AM EST) Hepatitis C Antibody Nonreactive Nonreactive [facility] Comment:Antibodies to HCV no t detected; does not exclude early acuteHCV infection. Blood Venous blood specimen / Unknown 02/28/2024 11:10 AM EST 02/28/2024 11:10 AM EST us Shireen Krishnan MD LAB BLOOD ORDERAB LES Final Result [facility] [address] [place] [phone] * Lipid Panel, Standard (02/28/2024 11:10 AM EST) Triglycerides 132 <150 mg/dL [facility] Comment:Desirable Triglyceri de: less than 150 mg/dLBorderline High Triglyceride 150-199 mg/dLHigh Triglyceride: 200-499 mg/dLVery High Triglyceride: greater than or equal to 5OO mg/dL Cholesterol 128 <200 mg/dL [facility] Comment:Desirable Cholestero l: less than 200 mg/dLBorderline High Cholesterol: 200-239 mg/dLHigh Cholesterol: greater than 239 mg/dL LDL Cholesterol Calculated 56 <100 mg/dL [facility] Comment:Desirable LDL: less than 100 mg/dLNear Optimal/Above Optimal LDL: 110- 129 mg/dLBorderline High LDL: 130-159 mg/dLHigh LDL: 160-189 mg/dLVery High LDL: greater than or equal to 190 mg/dL HDL Cholesterol 46 >40 mg/dL [facility] Comment:Desirable HDL: great er than 40 mg/dL Note: This HDL assay may give artificially low results in patients with liver disease. Blood Venous blood specimen / Unknown 02/28/2024 11:10 AM EST 02/28/2024 11:10 AM EST Shireen Krishnan MD LAB BLOOD ORDERAB LES Final Result Performing Organization Address City/[facility]/ZIP Co de Phone Number [facility] [address] [place] [phone] * Albumin, Random Urine W/Creatinine (02/28/2024 11:05 AM EST) Creatinine, Urine 80.33 mg/dL [facility] Microalbumin Urine <5.0 mg/L [facility] Microalbum Creatinine Ratio Ur TNP <30 ug/mg cr [facility] Comment:Unable to calculate albumin/creatinine ratio due to lowmicroalbumin or creatinine result. Urine (Urine, Random) 02/28/2024 11:05 AM EST 02/28/2024 12:03 PM EST us Shireen Krishnan MD LAB URINE ORDERAB LES Final Result Performing Organization Address [facility]/ZIP Co de Phone Number [facility] [address] [place] [phone] * HPV mRNA E6/E7 w/Reflex to HPV Genotypes 16, 18/45 (02/19/2023 10:03 AM EST) Pathologist [facility] HPV nRNA E6/E7 Not Detected Not Detected [facility] Comment:Methodology: Transcr iption-Mediated AmplificationThis assay detects E6/E7 viral messenger RNA (mRNA) from 14high-risk HPV types (16,18,31,33,35,39,45,51,52,56,58,59,66,68).Cervical sources are required for HPV testing.If a vaginal source from a patient who has had atotal hysterectomy with removal of cervix wassubmitted, please contact the testing laboratoryfor alternative testing options.For additional information, please refer [email or web address](This link if provided for information/educational purposes only.)THIS TEST WAS PERFORMED AT:[employer] [place] [phone] AGUIRRE MD HPV mRNA E6/E7 TNP [facility] HPV 16 RNA TNP [facility] HPV 18/45 RNA TNP [facility] 02/19/2023 10:0 3 AM EST 02/20/2023 11:30 AM EST Wu Arroyo [facility] CYTOLOGY ORDERABLES F inal Result [facility] [address] [place] [phone] * Pap Smear (02/19/2023 10:03 AM EST) 02/19/2023 10:0 3 AM EST 02/20/2023 11:30 AM EST Narrative [facility] - 03/09/2023 12:47 PM EST ----- ------- Name: DaysiShireen Age/Sex: 62/F : 1960 Unit#: [id number] Attend Dr: WU ARROYO CNM Re02/19/23 Status: DEP REF Location: HO.HHCLNP Disch: ----- ------- SPEC : [id number] RECD: 02/20/23 STATUS: LUCIA CALVERT NUM: [id number] NATALIE: 02/19/23-100[address] [facility] [address]: WU ARROYO CNM ENTERED: 02/20/23 SP TYPE: Pap Smr OT DR: ORDERED: Pap Smear Interpretation Satisfactory for evaluation. Negative for intraepithelial lesion or malignancy. HPV mRNA E6/E7: NOT DETECTED This assay detects E6/E7 viral messenger RNA (mRNA) from 14 high-risk HPV types (16, 18, 31, 33, 35, 39, 45, 51, 52, 56, 58, 59, 66, 68) HPV testing performed by [facility], [place], [place]. See reference laboratory portion of the EMR for entire report. Clinical Information LMP: Postmenopausal Previous PAP test: 2017, ASCUS HPV neg Material Received ThinPrep-Cervical ----- ------- Signed (signature on file) [facility] [place] (ASCP) 03/09/23 1247 ----- ------- END OF REPORT Wu Arroyo CNM LAB CYTOLOGY ORDERABLES F inal Result [facility] [address] [place] [address] [phone] * Hm Colonoscopy (05/04/2016) Colonoscopy performed us Historical Provider HEALTH MAINTENANCE Final Result from Last 3 Months or Most Recently Relevant to Health Maintenance Additional Health Concerns Active Problems Noted Date Diagnosed Date Help patients manage their type 2 diabetes 02/19 Weekly blood pressure task 02/19/2025 Help patients manage their type 2 diabetes 02/19 Patient has chronic kidney disease 02/19/2025 Help patients manage their type 2 diabetes 02/19 Patient has diabetic neuropathy 02/19/2025 Weekly blood pressure task 02/19/2025 Weekly blood pressure task 02/19/2025 Patient has chronic kidney disease 02/19/2025 Patient has chronic kidney disease 02/19/2025 Patient has diabetic neuropathy 02/19/2025 Patient has diabetic neuropathy 02/19/2025 Weekly blood pressure task 02/20/2025 Weekly blood pressure task 02/20/2025 Weekly blood pressure task 02/20/2025 Patient has chronic kidney disease 02/20/2025 Patient has chronic kidney disease 02/20/2025 Patient has chronic kidney disease 02/20/2025 Patient has diabetic neuropathy 02/20/2025 Patient has diabetic neuropathy 02/20/2025 Patient has diabetic neuropathy 02/20/2025 Weekly blood pressure task 02/24/2025 Weekly blood pressure task 02/24/2025 Weekly blood pressure task 02/24/2025 Patient has chronic kidney disease 02/24/2025 Patient has chronic kidney disease 02/24/2025 Patient has chronic kidney disease 02/24/2025 Patient has diabetic neuropathy 02/24/2025 Patient has diabetic neuropathy 02/24/2025 Patient has diabetic neuropathy 02/24/2025 Weekly blood pressure task 02/24/2025 Weekly blood pressure task 02/24/2025 Weekly blood pressure task 02/24/2025 Patient has chronic kidney disease 02/24/2025 Patient has chronic kidney disease 02/24/2025 Patient has chronic kidney disease 02/24/2025 Patient has diabetic neuropathy 02/24/2025 Patient has diabetic neuropathy 02/24/2025 Patient has diabetic neuropathy 02/24/2025 Weekly blood pressure task 02/26/2025 Weekly blood pressure task 02/26/2025 Weekly blood pressure task 02/26/2025 Patient has chronic kidney disease 02/26/2025 Patient has chronic kidney disease 02/26/2025 Patient has chronic kidney disease 02/26/2025 Patient has diabetic neuropathy 02/26/2025 Patient has diabetic neuropathy 02/26/2025 Patient has diabetic neuropathy 02/26/2025 Insurance [facility] OPTIONS (O D-SNP) YANCI ZAPATA [id number] Care Teams 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
--- OUTSIDE RECORDS SUMMARY | 2025-03-09 11:44 | XMS_ITS | Encounter Summary ---
Author Organization [employer] Address [address] [facility] 7t [place] [address] Care Team Providers Care Labor Mediator Name Role Phone Shireen Stout MD Primary Care Pro vider Encounter Details Date Type Department Care Team (Late st Contact Info) Description 12/13/2024 Orders Only [facility] [address] [place], [place] [phone] Lisa Mccurdy MD [address] [place], [place] [phone] Leg swelling (Primary Dx); Shortness of breath; [...] Description 03/17/2025 11:00 AM EST Office Visit [address] [phone] Rhoda Melvin CNM [address] [place] [phone] 03/18/2025 10:15 AM EST Office Visit [facility] [address] [place] [phone] Shireen Stout MD [address] [place] [phone] documented as of this encounter Visit Diagnoses Diagnosis Leg swelling- Primary Swelling of limb Shortness of breath Heart failure with mid-range ejection fraction (HFmEF) ([facility]) documented in this encounter Additional Health Concerns Assessment Noted Time PHQ-9 Depression Total Score: 11 025 9:44 AM EDT documented as of this encounter Care Teams Labor Mediator Relationship Specialty Start Date End Date Shireen Stout MD [address] [place] [phone] PCP - General Internal Medicine 09/08/22 [facility] 09/22/24 12/28/24 [facility] 12/01/24 documented as of this encounter
--- OUTSIDE RECORDS SUMMARY | 2025-03-09 11:44 | XMS_ITS | Clinical Summary ---
Author Organization [address] [facility] Address [address] [place] [phone] Phone Care Team Providers Care Boom Cat Operator Name Role Phone Pranav Stout MD Primary Care Pro vider Allergies Active Allergy Reactions Criticality Noted Date Comments Jimmy Inhibitors 11/02/2023 Apple 11/02/2023 Romero 11/02/2023 Rush (Prunus Persica) 11/02/2023 Peanut 11/02/2023 Medications albuterol [...] AM EST Office Visit Orthopedic [facility] - [place] [address] [phone] Herson Fitzgerald, DPM [address] [phone] Health Maintenance Due Date Last Done Comments [...] complete this topic Insurance MED[place] - [place] [facility] MEDICAID Care Teams Boom Cat Operator Relationship Specialty Start Date End Date Pranav Stout MD [address] [phone] PCP - General 08/16/23
--- OUTSIDE RECORDS SUMMARY | 2025-03-09 11:44 | XMS_ITS | Encounter Summary ---
Author Organization [employer] Address [address] [facility] 7[address] [place] [address] Care Team Providers Care Supervisor Statement Clerks Name Role Phone Shireen Stout MD Primary Care Pro vider Reason for Visit * Reason Onset Date Comments Hospital Follow-up 02/10/2025 Encounter Details Date Type Department Care Team ([facility] st Contact Info) Description 02/10/2025 Telephone [facility] [address] [place] [phone] Shireen Stout MD [address] [place], [place] [phone] Hospital Follow-up Social History Tobacco Use Types [...] from pt requesting a HDF appt. Hospital: [facility] Date of admission: 02/04 Discharge date: 02/09 Diagnosed: bone infection *Send message to [place] Clinical Care Coordinators documented in this encounter Plan of Treatment Upcoming Encounters Date Type Department Care Team (Late st Contact Info) Description 03/17/2025 11:00 AM EST Office Visit [facility] [address] [place] [phone] Rhoda Melvin CNM [address] [place] [address] 03/18/2025 10:15 AM EST Office Visit [facility] [address] [place] [address] [phone] Shireen Stout MD [address] [place] [address] documented as of this encounter Visit Diagnoses Not on filedocumented in this encounter Additional Health Concerns Assessment Noted Time PHQ-9 Depression Total Score: 11 08/21/ 025 9:44 AM EDT documented as of this encounter Care Teams Supervisor Statement Clerks Relationship Specialty Start Date End Date Shireen Stout MD [address] [place], [place] [phone] PCP - General Internal Medicine 09/08/[facility] documented as of this encounter
== END 2025-03-09 10:37 | disposition home or self-care (01) ==
LOC: HO.HID 09:46
PROVIDERS: PCP Student in an Organized Health Care Education/Training Program; Visit Provider Internal Medicine
DX: M86.9 Osteomyelitis, unspecified (principal)
CPT/HCPCS: 99213

== ENCOUNTER → 2025-03-09 09:46 | Outpatient (BNVA) | payer OTHER, SELFPAY | PROVIDERS: PCP Student in an Organized Health Care Education/Training Program; Visit Provider Internal Medicine | DX: M86.9 Osteomyelitis, unspecified (principal) | CPT/HCPCS: 99212 ==

== ENCOUNTER 2025-03-19 09:10 | Outpatient (AMB) | payer OTHER, SELFPAY ==
--- NOTE | 2025-03-19 09:20 | A.OFFVIS_ITS ---
Vital Signs 03/19/25 09:23 Height 5 ft Weight 139 lb BMI 27.1 Intake Visit Reasons: OV-Inj-Left knee inj last 12/18/24 Intake Note: Shireen is a 64 year old female who presents with complaints of intermittent left knee pain. The patient states that she is currently on IV antibiotics for a foot infection which ?involves the bone?. Allergies cornflower (Cornflower) Allergy (Unknown, Verified 03/19/25 09:24) ITCHY EYES/HIVES peach (PEACH) Allergy (Unknown, Verified 03/19/25 09:24) NATURAL FRUIT - MOUTH ITCHES cornell (cherries) Allergy (Verified 03/19/25 09:24) Unknown morphine Allergy (Verified 03/19/25 09:24) Itching apples Allergy (Unknown, Uncoded 03/19/25 09:24) Unknown peanut Allergy (Unknown, Uncoded 03/19/25 09:24) Unknown Medication List - Last Reconciled 03/19/25 by Geo Tomlinson MD amoxicillin 500 mg PO TID 14 days atorvastatin 40 mg PO BEDTIME blood pressure test kit-large As directed blood sugar diagnostic (FreeStyle Test strips) 4 times a day blood-glucose meter (FreeStyle [place] Lite kit) As directed calcium carbonate (Oyster Shell Calcium 500) 500 mg PO BID cetirizine 10 mg PO DAILY cholecalciferol (vitamin D3) (Vitamin D3) 50 mcg PO DAILY empagliflozin (Jardiance) 10 mg PO DAILY fenofibrate micronized 134 mg PO BEDTIME ferrous sulfate (FeroSul) 325 mg PO MOWEFR flash glucose scanning reader (FreeStyle Lakeisha 2 Attalla) As directed flash glucose sensor (FreeStyle Lakeisha 2 Sensor kit) every 14 days folic acid 1 mg PO DAILY gabapentin 300 mg PO BEDTIME insulin glargine (Lantus Solostar U-100 Insulin) 30 units subcut BEDTIME lancets (FreeStyle Lancets) As directed lancets (TRUEplus Lancets) As directed linaclotide (Linzess) 72 mcg PO DAILY losartan 25 mg PO DAILY mirabegron ER (Myrbetriq) 25 mg PO DAILY naltrexone 50 mg PO DAILY nebulizers As directed Oxygen Home Use As directed pantoprazole 20 mg PO BID@0630,1630 pen needle, diabetic (BD Ultra-Fine Debbie Pen Needle) As directed once a day sertraline (Zoloft) 50 mg PO DAILY thiamine HCl (vitamin B1) 100 mg PO DAILY torsemide 10 mg PO DAILY trazodone 100 mg PO BEDTIME PFSH Medical History Toe ulcer due to DM Abnormal CT scan, gastrointestinal tract Elevated troponin Cardiomyopathy CAD (coronary artery disease) Dyspnea Asthma-COPD overlap syndrome Alcohol use History of methadone use Personal history of nicotine dependence Asthma Obesity (BMI 30-39.9) GERD (gastroesophageal reflux disease) Cirrhosis Vitamin D deficiency Hypertension Dyslipidemia Non-toxic multinodular goiter Osteoporosis Diabetic 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 with type 2 diabetes mellitus 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 (current) use of insulin Diabetes type 2, uncontrolled Surgical History Status post biopsy of thyroid gland History of colonoscopy (~2016) Hx of cataract extraction History of esophagogastroduodenoscopy (EGD) (~2020) Hx of cardiac cath (~12/2015) Hx of cholecystectomy (~1980) History of bladder surgery (~06/2019) Family History Father Esophageal cancer Mother Diabetes mellitus HTN (hypertension) Social History Household Members: Spouse Housing: Apartment Do you presently have visiting nurse or other home services: Yes ([employer] services.) Alcohol intake: former Patient Tobacco Use Status: Former Tobacco user Tobacco use type: Cigarette Years Smoked: Onset 27, 2ppd x 24yrs, 48pyh, quit 11/2012 Advance Directives Date on File: 02/28/21 service: No Physical Exam Vital Signs: BMI result Body Mass Index 27.1 Extrem Other: Left knee examination shows a minimal effusion, palpable crepitus with range of motion, pain with range of motion, no instability Assessment & Plan Assessment & Plan (1) Arthritis of left knee: Code(s): M17.12 - Unilateral primary osteoarthritis, left knee Category: Medical Plan Shireen presents with left knee pain due to degenerative joint disease. In light of her current foot infection we will hold off on a cortisone injection today. She will continue with her activity modifications and topical creams. She will follow up with me once her infection is resolved. Feel free to call me at any time should questions regarding her orthopedic management arise. I spent 20 minutes in reviewing the patient's records and imaging studies, seeing the patient and documenting in the medical record. Coding Level of Care Code Est Pt Level 3 (79275) Add On Problem Visit Only Diagnoses Arthritis of left knee M17.12
[2025-03-19 09:23] VITALS: BMI 27.1
== END 2025-03-19 09:36 | disposition home or self-care (01) ==
LOC: HO.HOS 09:10
PROVIDERS: PCP Student in an Organized Health Care Education/Training Program; Visit Provider Orthopaedic Surgery
DX: M17.12 Unilateral primary osteoarthritis, left knee (principal)
CPT/HCPCS: 99213; G2211

== ENCOUNTER → 2025-03-19 09:10 | Outpatient (BNVA) | payer OTHER, SELFPAY | PROVIDERS: PCP Student in an Organized Health Care Education/Training Program; Visit Provider Orthopaedic Surgery | DX: M17.12 Unilateral primary osteoarthritis, left knee (principal); M86.9 Osteomyelitis, unspecified | CPT/HCPCS: 99212 ==

== ENCOUNTER → 2025-03-25 10:04 | Outpatient (BNV) | payer OTHER, SELFPAY | PROVIDERS: PCP Student in an Organized Health Care Education/Training Program; Visit Provider Radiology Diagnostic Radiology | DX: D25.9 Leiomyoma of uterus, unspecified (principal) | CPT/HCPCS: 72197 ==

== ENCOUNTER 2025-03-25 10:11 | Outpatient (REF) | payer OTHER, SELFPAY ==
--- OUTSIDE RECORDS SUMMARY | 2025-03-19 23:59 | XMS_ITS | Continuity of Care Document ---
Author Organization [facility] Address [address] [place] [id number]- Care Team Providers Care Highway Patrol Officer Name Role Phone Chacho Krishnan MD, Pranav Carrera Primary Care Maisha marcano [id number] Date(s): 02/17/25 - 03/19/25 [facility] [address] [place] [address]- Encounter Type: Triage Allergies, Adverse Reactions, Alerts Substance Criticality Severity Reaction Reaction Severity Status Romero mouth itchiness Acti ve [place] mouth itchiness Acti ve Peanuts rash in mouth Active Other Environmental Allergy pine trees- eye itchiness Active Apples rash in the mouth Ac tive Medications Advair Diskus 100 mcg-50 mcg inhalation powder 1, inhalation, Inhalation, 2 times a day, rinse mouth and throat after use, Refills 0, Maintenance,11/18/24 9:45:00 AM EDT, Powder Start Date: 11/18/24 Status: Ordered Medication Dispense Status: Completed Total Allowed Fills: 1 Fills Dispensed: 0 atorvastatin 40 mg oral tablet 1 tablet = 40 mg, By Mouth, Daily at bedtime, # 90 tablet, 0 Refills, Maintenance, 09/27/24 8:12:00 PM EDT, Tablet, Partial fill upon patient request if the prescription is for a schedule II opioid drug. Start Date: 09/27/24 Status: Ordered Medication Dispense Status: Completed Quantity: 90.0 Unit: tablet Total Allowed Fills: 1 Fills Dispensed: 0 azithromycin 250 mg oral tablet = 250 mg, By Mouth, Daily, 0 Refills, Maintenance, 11/18/24 9:52:00 AM EDT, Tablet, Partial fill upon patient request if the prescription is for a schedule II opioid drug. Start Date: 11/18/24 Stop Date: 11/20/24 Status: Ordered Medication Dispense Status: Completed Total Allowed Fills: 1 Fills Dispensed: 0 Baqsimi Two Pack 3 mg nasal powder See Instructions, 3 mg Once To be use for hypoglycemic emergency by family member or accompanying person, if blood glucoses less than 60 and unconscious. Please call 911 after use of glucagon. E11.9,# 1 each, 0 Refills, Soft Stop, 06/18/24 12:20:00 PM EDT, [facility], Partial fill upon patient request if the prescription is for a schedule II opioid drug., 156, cm, 06/18/24 9:02:00 EDT, Height Start Date: 06/18/24 Status: Ordered Medication Dispense Status: Completed Quantity: 1.0 Unit: each Total Allowed Fills: 1 Fills Dispensed: 0 BD Ultra-Fine Short Pen Needle 31 gauge x 5/16 BD Ultra-Fine Short Pen Needle 31 gauge x 5/16 , See Instructions, # 100 Unknown, 5 Refills, Maintenance, USE DIRECTED WITH INSULIN, 08/20/24 11:55:00 AM EDT, 156, cm, 06/18/24 9:02:00 EDT, Height Start Date: 08/20/24 Status: Ordered Medication Dispense Status: Completed Quantity: 100.0 Unit: Unknown Total Allowed Fills: 1 Fills Dispensed: 0 Carafate 1 gm oral tablet 1 Gm, By Mouth, 3 times a day before meals and bedtime, Refills 0, Maintenance, 11/18/24 9:52:00 AM EDT, Partial fill upon patient request if the prescription is for a schedule II opioid drug. Start Date: 11/18/24 Stop Date: 11/25/24 Status: Ordered Medication Dispense Status: Completed Total Allowed Fills: 1 Fills Dispensed: 0 cholecalciferol 2000 intl units oral tablet 1 tablet = 2,000 International_Units, By Mouth, Daily, # 30 tablet, 6 Refills, Maintenance, :22:45 PM EDT, [facility] Start Date: 12/25/12 Stop Date: 07/23/13 Status: Ordered Medication Dispense Status: Completed Quantity: 30.0 Unit: tablet Total Allowed Fills: 7 Fills Dispensed: 0 Diabetic shoes Diabetic shoes, See Instructions, # 1 each, Refills 0, Tot. Refills 0, Maintenance, Diabetic shoes E11.9, 04/11/24 10:37:00 AM EST, Supply Start Date: 04/11/24 Status: Ordered Medication Dispense Status: Completed Quantity: 1.0 Unit: each Total Allowed Fills: 1 Fills Dispensed: 0 ergocalciferol 30326 iu oral capsule 1 capsule = 50,000 International_Units, By Mouth, Every week, # 5 capsule, 3 Refills, Maintenance, 08/23/11 5:11:34 PM EDT Start Date: 08/23/11 Stop Date: 12/21/11 Status: Ordered Medication Dispense Status: Completed Quantity: 5.0 Unit: capsule Total Allowed Fills: 4 Fills Dispensed: 0 fenofibrate 134 mg oral capsule 1 capsule = 134 mg, By Mouth, Daily at bedtime, # 30 capsule, 0 Refills, Maintenance, 09/27/24 8:10:00 PM EDT, Capsule, Partial fill upon patient request if the prescription is for a schedule II opioid drug. Start Date: 09/27/24 Status: Ordered Medication Dispense Status: Completed Quantity: 30.0 Unit: capsule Total Allowed Fills: 1 Fills Dispensed: 0 ferrous sulfate 325 mg oral tablet 325 Unknown, Oral, 2 Refill(s), TAKE 1 TABLET BY MOUTH EVERY MORNING, 0 Refills, 02/12/23 7:00:00 [facility], Partial fill upon patient request if the prescription is for a schedule II opioid drug. Start Date: 02/12/23 Status: Ordered Medication Dispense Status: Completed Total Allowed Fills: 1 Fills Dispensed: 0 folic acid 1 mg oral tablet 1 mg, By Mouth, Daily, Refills 0, Maintenance, 10/21/24 4:06:00 PM EDT, Partial fill upon patient request if the prescription is for a schedule II opioid drug. Start Date: 10/21/24 Status: Ordered Medication Dispense Status: Completed Total Allowed Fills: 1 Fills Dispensed: 0 FreeStyle Lite Strips FreeStyle Lite Strips, See Instructions, # 200 Unknown, 6 Refills, Maintenance, TEST BLOOD SUGAR 1-2 TIMES PER DAY, 08/21/23 1:28:00 PM EDT, 156, cm, 06/05/23 9:59:00 EST, Height, 78.5, kg, 05/29/22 13:45:00 EST, Dry Weight Start Date: 08/21/23 Status: Ordered Medication Dispense Status: Completed Quantity: 200.0 Unit: Unknown Total Allowed Fills: 1 Fills Dispensed: 0 gabapentin 300 mg oral capsule 300 mg, 1, capsule, By Mouth, 2 times a day, Refills 0, Maintenance, 11/18/24 9:46:00 AM EDT, Partial fill upon patient request if the prescription is for a schedule II opioid drug. Start Date: 11/18/24 Status: Ordered Medication Dispense Status: Completed Total Allowed Fills: 1 Fills Dispensed: 0 insulin glargine 100 u/ml subcutaneous solution = 30 units, Subcutaneous Injection, Every 24 hours, # 15 mL, 0 Refills, Maintenance, 10/21/24 4:06:00 PM EDT, Injection, [facility], Partial fill upon patient request if the prescription is for a schedule II opioid drug., 158, cm, 10/21/24 13:41:00 EDT, Height, 78.8, kg, 09/27/2522:03:00 EDT, Dry Weight Start Date: 10/21/24 Status: Ordered Medication Dispense Status: Completed Quantity: 15.0 Unit: mL Total Allowed Fills: 1 Fills Dispensed: 0 insulin lispro 100 units/mL injectable solution 5-15 units, Subcutaneous Injection, 3 times a day before meals, lispro scale to 5:100 + 2:50, threetimes daily prior to meals << Sliding Scale Comments >> 100 - 149 5 units Call if less than 70 150 - 199 7 units 200 - 249 9 units 250 - 299 11 units 300 - 349 13 units 350 - 399 15 unitsCall if greater than 400 << Sliding Scale Comments >>, 0 Refills, Maintenance, 10/21/24 4:07:00 PM EDT, Injection, Partial fill upon patient request if the prescription is for a schedule II opioid drug. Start Date: 10/21/24 Status: Ordered Medication Dispense Status: Completed Total Allowed Fills: 1 Fills Dispensed: 0 Linzess 72 mcg oral capsule 1 capsule = 72 mcg, By Mouth, Daily, do not crush or chew, # 30 capsule, 0 Refills, Maintenance, 09/27/24 8:09:00 PM EDT, Capsule, Partial fill upon patient request if the prescription is for a schedule II opioid drug. Start Date: 09/27/24 Status: Ordered Medication Dispense Status: Completed Quantity: 30.0 Unit: capsule Total Allowed Fills: 1 Fills Dispensed: 0 losartan 25 mg oral tablet 1 tablet = 25 mg, By Mouth, Daily, # 30 tablet, 0 Refills, Maintenance, 09/27/24 8:13:00 PM EDT, Tablet, Partial fill upon patient request if the prescription is for a schedule II opioid drug. Start Date: 09/27/24 Status: Ordered Medication Dispense Status: Completed Quantity: 30.0 Unit: tablet Total Allowed Fills: 1 Fills Dispensed: 0 oxybutynin 10 mg/24 hr oral tablet, extended release 1 tablet = 10 mg, By Mouth, Daily, # 30 tablet, 0 Refills, Maintenance, 11/18/24 9:46:00 AM EDT, ER Tablet, Partial fill upon patient request if the prescription is for a schedule II opioid drug. Start Date: 11/18/24 Status: Ordered Medication Dispense Status: Completed Quantity: 30.0 Unit: tablet Total Allowed Fills: 1 Fills Dispensed: 0 Oyster Shaquille 1250 mg (500 mg elemental calcium) oral tablet 180 each, 0 Refill(s), TAKE 1 TABLET BY MOUTH TWICE DAILY IN THE MORNING AND IN THE EVENING WITH MEALS, 0 Refills, 05/03/23 2:01:00 PM EST, Partial fill upon patient request if the prescription is fora schedule II opioid drug. Start Date: 05/03/23 Status: Ordered Medication Dispense Status: Completed Total Allowed Fills: 1 Fills Dispensed: 0 pantoprazole 20 mg oral delayed release tablet 1 tablet = 20 mg, By Mouth, 2 times a day, # 30 tablet, 0 Refills, Maintenance, 09/27/24 8:13:00 PM EDT, CR Tablet Start Date: 09/27/24 Status: Ordered Medication Dispense Status: Completed Quantity: 30.0 Unit: tablet Total Allowed Fills: 1 Fills Dispensed: 0 sertraline 50 mg oral tablet 1 tablet = 50 mg, By Mouth, Daily, # 30 tablet, 0 Refills, Maintenance, 09/27/24 8:11:00 PM EDT, Tablet, Partial fill upon patient request if the prescription is for a schedule II opioid drug. Start Date: 09/27/24 Status: Ordered Medication Dispense Status: Completed Quantity: 30.0 Unit: tablet Total Allowed Fills: 1 Fills Dispensed: 0 thiamine 100 mg oral tablet 100 mg, By Mouth, Daily, Refills 0, Maintenance, 10/21/24 4:07:00 PM EDT, Partial fill upon patient request if the prescription is for a schedule II opioid drug. Start Date: 10/21/24 Status: Ordered Medication Dispense Status: Completed Total Allowed Fills: 1 Fills Dispensed: 0 tiZANidine 2 mg oral capsule 1 capsule = 2 mg, By Mouth, 2 times a day, PRN as needed for muscle spasm, # 90 capsule, 5 Refills,Maintenance, 11/18/24 9:45:00 AM EDT, Capsule, Partial fill upon patient request if the prescriptionis for a schedule II opioid drug. Start Date: 11/18/24 Stop Date: 12/18/24 Status: Ordered Medication Dispense Status: Completed Quantity: 90.0 Unit: capsule Total Allowed Fills: 1 Fills Dispensed: 0 traZODone 100 mg oral tablet 200 mg, 2, tablet, By Mouth, Daily at bedtime, # 180 tablet, Refills 0, Maintenance, 09/27/24 8:11:00 PM EDT, Partial fill upon patient request if the prescription is for a schedule II opioid drug. Start Date: 09/27/24 Status: Ordered Medication Dispense Status: Completed Quantity: 180.0 Unit: tablet Total Allowed Fills: 1 Fills Dispensed: 0 TRUEplus Lancets 33 gauge TRUEplus Lancets 33 gauge, See Instructions, # 100 Unknown, 3 Refills, Maintenance, TEST BLOOD SUGAR TWICE DAILY, 09/11/23 2:48:00 PM EDT, 156, cm, 06/05/23 9:59:00 EST, Height, 78.5, kg, 05/29/22 13:45:00 EST, Dry Weight Start Date: 09/11/23 Status: Ordered Medication Dispense Status: Completed Quantity: 100.0 Unit: Unknown Total Allowed Fills: 1 Fills Dispensed: 0 Ventolin HFA 108 mcg/inh inhalation aerosol with adapter 2 inhalation = 180 mcg, Inhalation, Every 4 hours, PRN as needed for shortness of breath or wheezing, # 18 Gm, 0 Refills, Maintenance, 09/27/24 8:09:00 PM EDT, Aerosol, Partial fill upon patient request if the prescription is for a schedule II opioid drug. Start Date: 09/27/24 Status: Ordered Medication Dispense Status: Completed Quantity: 18.0 Unit: g Total Allowed Fills: 1 Fills Dispensed: 0 Problem List Condition Confirmation Course Effective Dates Status H ealth Status Informant Asthma Confirmed Active Chronic kidney disease Confirmed Active Liver cirrhosis Confirmed Active Constipation Confirmed Active Depression Confirmed Active Diabetic nephropathy Confirmed Active GERD (gastroesophageal reflux disease) Confirmed Active Hyperlipidemia Confirmed Active Hypertension Confirmed Active Hyperthyroidism Confirmed Active Fecal incontinence Confirmed Active Microalbuminuria Confirmed Active Obesity Confirmed Active Pulmonary nodule following infection by Coccidioides Confirmed Active Tobacco use Confirmed Active Type II diabetes mellitus Confirmed Active Urinary incontinence Confirmed Active Social History Social History Type Response Sexual Sexually involved in last 6 months: No. Smoking Status Former smoker, quit more than 30 days ago entered on: 01/09/19 Sex Sex Representation Female (finding) Implantable Device List Procedure Provider Procedure Date Device Type Site Transobturator Midurethral S ling With Bailee Morocho MD 06/16/19 Unknown Vagina Device Identifier Serial Number Lot or Batch Number Manufacturing Date Expiration Date Distinct Identification Code MRI Safety Implantable Status Assigning Authority [id number] Unknown [id number] Unknown 04/24/22 Unknown Unknown Active GS1 Patient Care team information Care Team Personnel Name: Rochelle Jung RN Position: [facility] RN Member Role: Primary Care Nurse Name: Lisa Holden Position: [facility] RN Member Role: Primary Care Nurse Name: wGendolyn Martinez RN Position: [facility] RN Member Role: Primary Care Nurse Name: Summer Bolanos RN Position: [facility] RN Member Role: Primary Care Nurse Name: Janay Andrade RN Position: [facility] RN Member Role: Primary Care Nurse Name: Jane Damon RN Position: [facility] RN Member Role: Primary Care Nurse Name: Tara Forman RN Position: [facility] RN Member Role: Primary Care Nurse Name: Meaghan Mann RN Position: [facility] RN Supv Member Role: Primary Care Nurse Name: Manjeet Ledbetter RN Position: [facility] RN Member Role: Primary Care Nurse Name: Daljit Mercado RN Position: [facility] RN Member Role: Primary Care Nurse Name: Furtuna RN, Kian Position: [facility] RN Member Role: Primary Care Nurse Name: Samia Neves RN Position: [facility] RN Member Role: Primary Care Nurse Name: Libertad Chirinos RN Position: [facility] RN Member Role: Primary Care Nurse Name: Erica Bowser Position: [facility] RN Member Role: Primary Care Nurse Name: Bethany Jerez RN Position: [facility] RN Member Role: Primary Care Nurse Name: Libertad Mayberry RN Position: [facility] RN Member Role: Primary Care Nurse Name: Pranav Stout MD Position: [facility] Outreach Member Role: PCP Address: [address] [place] [id number] Telecom: Care Team Related Persons Name: JONATHAN BAILEY Name: JUNIOR LYNN Insurance Providers [facility]: 1 [facility] CMN[employer] [employer]IANCE Payer Identifier: NA Member Number: [id number] Group Number: [id number] Subscriber Identifier: NA Relationship to Subscriber: self Coverage Type: Medicare Managed Care (Includes Medicare Advantage Plans) Coverage Verification Date: NA Telecom: NA Address:
--- OUTSIDE RECORDS SUMMARY | 2025-03-22 23:59 | XMS_ITS | Continuity of Care Document ---
Author Organization [facility] Address [address] [place] [address]- Care Team Providers Care Secondary School Principal Name Role Phone Chacho Krishnan MD, Pranav Carrera Primary Care Maisha marcano Encounter [facility] [place] Date(s): 02/20/25 - 03/22/25 [facility] [address] [place] [id number] Attending Physician: Hayley Quick Admitting Physician: Hayley Quick Referring Physician: AdmtrHayley Encounter Type: Triage Allergies, Adverse Reactions, Alerts Substance Criticality Severity Reaction Reaction Severity Status Romero mouth itchiness Acti ve Peanuts rash in mouth Active Other Environmental Allergy pine trees- eye itchiness Active Apples rash in the mouth Ac tive [place] mouth itchiness Acti ve Medications Advair Diskus 100 mcg-50 mcg inhalation [...] Refills, Soft Stop, 06/18/24 12:20:00 PM EDT, [facility], Partial fill upon patient request [...] tablet, 6 Refills, Maintenance, :22:45 PM EDT, [facility] Start Date: 12/25/12 Stop Date: 07/23/13 Status: [...] Allowed Fills: 1 Fills Dispensed: 0 ergocalciferol 26148 iu oral capsule 1 capsule = 50,000 [...] Refills, Maintenance, 10/21/24 4:06:00 PM EDT, Injection, [facility], Partial fill upon patient request [...] Code MRI Safety Implantable Status Assigning Authority [id number] 274 Unknown [id number] Unknown 04/24/22 Unknown Unknown Active GS1 Patient Care team information Care Team Personnel Name: Rochelle Jung RN Position: S RN Member Role: Primary Care Nurse Name: Lisa Holden Position: S RN Member Role: Primary Care Nurse Name: Gwendolyn Martinez RN Position: S RN Member Role: Primary Care Nurse Name: Summer Bolanos RN Position: S RN Member Role: Primary Care Nurse Name: Janay Andrade RN Position: S RN Member Role: Primary Care Nurse Name: Jane Damon RN Position: S RN Member Role: Primary Care Nurse Name: Tara Forman RN Position: S RN Member Role: Primary Care Nurse Name: Meaghan Mann RN Position: S RN Supv Member Role: Primary Care Nurse Name: Manjeet Ledbetter RN Position: S RN Member Role: Primary Care Nurse Name: Daljit Mercado RN Position: [facility] RN Member Role: Primary Care Nurse Name: Kian Dumont RN Position: [facility] RN Member Role: Primary Care Nurse Name: Samia Neves RN Position: [facility] RN Member Role: Primary Care Nurse Name: Libertad Chirinos RN Position: S RN Member Role: Primary Care Nurse Name: Erica Bowser Position: [facility] RN Member Role: Primary Care Nurse Name: Bethany Jerez RN Position: [facility] RN Member Role: Primary Care Nurse Name: Libertad Mayberry RN Position: [facility] RN Member Role: Primary Care Nurse Name: Chacho Krishnan MD, Pranav Carrera Position: [facility] Outreach Member Role: PCP Address: [address] [place] [address] Telecom: Care Team Related Persons Name: JONATHAN BAILEY Name: JUNIOR LYNN Insurance Providers Guarantor name: [facility] Plan Information #: 1 Payer: [facility] [employer] C[employer]IANCE Payer Identifier: JESUS Member Number: [id number] Group Number: [id number] Subscriber Identifier: NA Relationship to Subscriber: self Coverage Type: Medicare Managed Care (Includes Medicare Advantage Plans) Coverage Verification Date: JESUS Telecom: NA Address:
--- NOTE | ~2025-03-25 | MR_ITS ---
CLINICAL HISTORY: N85.8 - Other specified noninflammatory disorders of uterus, uterine mass Exam: MRI of the pelvis, including gadolinium enhanced imaging. Comparison: Pelvic ultrasound 01/23/2025, and CT abdomen and pelvis 02/04/2025. Findings: Uterus measures 7.0 cm craniocaudad dimension, 4.1 cm AP dimension and 6.3 cm transverse dimension. The endometrium isn't not visualized although not abnormally thickened, likely somewhat compressed by a left anterior intramural fibroid described below. Transition zone measures approximately 6 mm thickness. There is a heterogeneous T2 hypointense intramural fibroid within left anterior myometrium measuring 4.7 x 3.7 cm cross-sectional dimension (7; 12), and up to 3.8 cm craniocaudad dimension. This reveals scattered minimal foci of T1 hyperintensity and fat saturation (for example, 10; 46 and 11; 46), most compatible with a lipoleiomyoma. No other myometrial lesions identified. The ovaries are not definitively delineated, likely diminutive due to patient's age. No adnexal lesions are appreciated. A trace amount of nonspecific free fluid is present within the pelvis. Urinary bladder is free of gross filling defects. No pelvic masses or adenopathy. Visualized bowel loops reveal no abnormal wall thickening or distention. Visualized osseous structures reveal no destructive osseous lesions. Impression: 1. Uterine leiomyoma or lipoleiomyoma measuring up to 4.7 cm as described above. 2. Nonvisualization of the ovaries bilaterally. No adnexal lesions identified. This document has been electronically signed by: Gustavo Garza MD on 03/26/2025 13:02:31
--- OUTSIDE RECORDS SUMMARY | 2025-03-25 12:33 | XMS_ITS | Patient Health Record ---
Author Organization [facility] Address [address] [place] [address] Care Team Providers Care Family Service Assistant Name Role Phone Víctor Euceda Jr Reason For Referral No Information Plan Of Treatment No Information
--- OUTSIDE RECORDS SUMMARY | 2025-03-25 12:33 | XMS_ITS | Clinical Summary ---
Author Organization [facility] Address [address] [place] [address] Phone Care Team Providers Care Costume Shop Coordinator Name Role Phone Pranav Stout MD Primary Care Pro vider Allergies Active Allergy Reactions Criticality Noted Date Comments Jimmy Inhibitors 11/02/2023 Apple 11/02/2023 Romero 11/02/2023 [place] (Prunus Persica) 11/02/2023 Peanut 11/02/2023 Medications albuterol [...] on file Sexual Orientation Not on file Last Filed Vital Signs Vital Sign Reading [...] AM EST Office Visit Orthopedic Surgery - [place] [address] [address] Herson Fitzgerald, DPM [address] [address] Health Maintenance Due Date Last [...] patient's age to complete this topic Insurance * Guarantor: Pranav Tavarez Account Type Relation to Patient Date of Phone Billing Address Personal/Family Self [address] [place] [id number] MEDICAID - [place] [facility] MEDICAID Care Teams Costume Shop Coordinator Relationship Specialty Start Date End Date Pranav Stout MD [address] [address] PCP - General 08/16/23
--- OUTSIDE RECORDS SUMMARY | 2025-03-25 12:34 | XMS_ITS | Data Portability ---
Author Organization [facility], Main Office Address [address] [place] [address] Care Team Providers Care Coke Inspector Name Role Phone MARY SMITH - 2ND FLOOR OTHER PRANAV MELENDEZ Primary Care Provider Assessment Encounter Date Assessment Date Assessment LastModified by Organization Details LastModified Time 10/23/2024 10/23/2024 10/21/24: wbc 11.3, hgb 13.8, hct 42.6, plt 251, na 137, bun 2, cr 0.46, gfr 106, phos 2.7, mag 1.7, lipase 6, ast 27, alt 27, biuli 0.7, lactate 1.2, vit b12 636, crp <0.3, csf panel neg, tsh 0.60, free t4 1.41, cortisol 17.5, sed 43, immunology panel neg except IgA 692 and lyme disease Ab postiive, cdif neg, UA neg for infection, trop 11 Not available 10/23/2024 10:31:16 10/27/2024 10/27/2024 10/21/24: wbc 11.3, hgb 13.8, hct 42.6, plt 251, na 137, bun 2, cr 0.46, gfr 106, phos 2.7, mag 1.7, lipase 6, ast 27, alt 27, biuli 0.7, lactate 1.2, vit b12 636, crp <0.3, csf panel neg, tsh 0.60, free t4 1.41, cortisol 17.5, sed 43, immunology panel neg except IgA 692 and lyme disease Ab postiive, cdif neg, UA neg for infection, trop 11 labs 10/29 pending Not available 10/27/2024 19:40:42 Plan of Treatment Reminders Order Date Submit Date Provider Last Modified By Organization Details Last Modified Time Details Appointments None record ed. Lab None record ed. Referral None record ed. Procedures None record ed. Surgeries None record ed. Imaging None record ed. Medication Orders None record ed. Patient TargetsNo targets recorded. Patient InstructionsNo instructions recorded. Reason for Referral None Reported. Problems Name Problem SNOMED Code Status Onset Date Resolution Date Notes Provider Name and Address Organization Details Recorded Time Type 2 diabetes mellitus 20222701 Active 2024 Marium Yang NP [address], [address], [place], [address], [facility] [employer] [facility] 5 08:45:29 Essential hypertension 60593692 Active 2024 Marium Yang NP [address], [address], [place], [address], [facility] [employer] [facility] 5 08:45:40 Hyperlipidemia 19291763 Active 2024 Marium Yang NP [address] , [address], [place], [address], [facility] 5 08:45:55 Gastroesophage al reflux disease 281974800 Active 2024 Marium Yang NP [address] , [address], [place], [address], [facility] [employer] [facility] 5 08:46:12 Alcohol use disorder Active 2024 Marium Yang NP [address], [address], [place], [address], [facility] [employer] [facility] 5 08:46:29 Mixed anxiety and depressive disorder 391488264 Active 2024 Marium Yang NP [address], [place], [address], [facility] [employer] [facility] 5 08:46:51 Wernicke's disease 90474077 Active 2024 Marium Yang NP [address], [address], [place], [address], [facility] [employer] [facility] 5 08:47:11 Aspiration pneumonia 759240966 Active 2024 Marium Yang NP [address], [address], [place], [address], [facility] 5 09:58:57 Alcoholic cirrhosis 023858434 Active 2024 Marium Yang NP [address], [address], [place], [address], [facility] 5 09:54:19 Metabolic encephalopathy 14649583 Active 2024 Marium Yang NP [address], [address], [place], [address], [facility] 5 09:58:13 Chronic obstructive pulmonary disease 49858819 Active 2024 Marium Yang NP [address], [address], [place], [address], [facility] 5 09:59:23 Thyroid nodule 519332597 Active 2024 Marium Yang NP [address], [address], [place], [address], [facility] 5 10:00:28 Iron deficiency anemia 31399390 Active 2024 Marium Yang NP [address], [address], [place], [address], [facility] 5 10:15:05 Vitamin deficiency 08090822 Active 2024 Marium Yang NP [address], [address], [place], [address], [facility] 5 10:16:16 Retention of urine 165794664 Active 2024 Marium Yang NP [address], [address], [place], [address], [facility] 5 10:20:05 Lyme disease 75117007 Active 2024 Marium Yang NP [address], [address], [place], [address], [facility] 5 10:29:19 Chronic pain syndrome 450940090 Active 2024 Mariumpaola Yang NP [address], [address], [place], [address], [facility] 5 10:36:21 Recurrent falls 376042235 Active 2024 Marium MARTHA Yang [address], [address], [place], [address], [facility] [employer] [facility] 5 10:42:18 Problem Notes None recorded. Medical Equipment None Reported. Allergies Allergen ID Allergen Name Allergen Category Reaction Reaction Severity Criticality Documentation Date Start Date Code Code System Note Provider Name and Address Organization Details Recorded Time 84086 apple extract food rash Not available unabletoasse 10/23/2024 57560 65 RxNorm rash in mouth Marium MARTHA Yang [address], [address], [place], [address], [facility] [employer] [facility] 5 08:20:56 53207 cornell allergeni c extract food,medi cation itching Not available unabletoasse 10/23/2024 85938 1 RxNorm itch in mouth Marium MARTHA Yang [address], [address], [place], [address], [facility] [employer] [facility] 5 08:21:51 92546 peach food itching Not available unabletoasse 10/23/2024 itchi ng to mouth Marium MARTHA Yang [address], [address], [place], [address], [facility] [employer] [facility] 5 08:23:36 50089 peanut allergeni c extract food,medi cation rash Not available unabletoasse 10/23/2024 04665 8 RxNorm rash in mouth Marium MARTHA Yang [address], [address], [place], [address], [facility] [employer] [facility] 5 08:24:04 Medications Not known to be on any medication Vitals Date Recorded Body weight Heart rate Respiratory rate Body temperature Oxygen saturation Systolic And Diastolic Provider Name and Address Organization Details Last Updated DateTime 5 16164.4 8 g 76 /min 19 /min 97.8 [degF] 97 % 118/78 mm[Hg] Marium Yang NP [address], [address], [place], [address], [facility] 5 08:15:07 Date Recorded Systolic And Diastolic Provider Name and Address Organization Details Last Updated DateTime 10/24/2024 110/72 mm[Hg] Nicolas Smith MD [address], [address], [place], [address], [facility] 10/24/2024 11:34:43 Date Recorded Body weight Heart rate Respiratory rate Body temperature Oxygen saturation Systolic And Diastolic Provider Name and Address Organization Details Last Updated DateTime 5 57945.0 7 g 80 /min 17 /min 97.8 [degF] 97 % 128/75 mm[Hg] Marium Yang NP [address], [address], [place], [address], [facility] 5 19:14:55 Social History Question Answer Notes LastModified by [facility] Details LastModified Time Tobacco Smoking Status Former Smoker Marium Yang NP [address], [address], [place], [address], [facility] 10/23/2024 08:27:09 Do You Have An Advance Directive? No Information not available 10/23/2024 What Was The Date Of Your Most Recent Tobacco Screening? 10/23/2024 Information not available 10/23/2024 Have You Ever Been Counseled For Unhealthy Alcohol Use? Yes In Hospital Information not available 10/23/2024 What Is Your Relationship Status? Information not available 10/23/2024 How Much Tobacco Do You Smoke? No Information not available 10/23/2024 Has Tobacco Cessation Counseling Been Provided? No Na Information not available 10/23/2024 Sex: Female Functional Status Question Answer Note LastModified by [employer] Details LastModified Time How many times per week do you consume alcohol? 5-7 times per week Information not available 10/23/2024 Do you use any illicit or recreational drugs? No Information not available 10/23/2024 Do you or have you ever used any other forms of tobacco or nicotine? No Information not available 10/23/2024 What is your level of alcohol consumption? Heavy 5 beers and 2 nips daily unclear on exact date of stop, approx days 10 days per dc summary Information not available 10/23/2024 Mental Status None recorded. Family History Nothing Reported Notes:father: ca of esophagu s mother: dm2 Medical History No medical history recorded. Gynecological HistoryNo gynecological history recorded. Obstetrics History GPAL:G 0 P 0 0 0 0 Past Encounters Encounter ID Performer Location Encounter Start Date Encounter Closed Date Diagnosis/Indication Diagnosis SNOMED-CT Code Diagnosis ICD10 Code Diagnosis IMO Codes Diagnosis Note [id number] Marium Yang NP [address] [address] 10/23/2024 08:02:22 10/30/2024 13:09:03 Metabolic encephalopathy 54838323 G93.41 181300 resolvingf elt multifacto rial see hpialso: Suspected Hematologi c/Infiltra tive Process.MR I brain: marrow FLAIR hyperinten sity and decreased diffusivit y.Concern for marrow-rep lacing or infiltrati ve processNM Bone and/or Joint Whole Body 10/07/24- Faint focal uptake in bilateral sacroiliac joints, likely arthritic. No other focal or diffuse abnormal uptake in the osseous structures .. No abnormal uptake within the calvarium. . spoke with Dr. Rahman from hematology team 10/09, no further heme evaluation required for bone marrow enhancemen t. All work up so far negative. No outpatient heme follow up required.c omphrensiv e workup done as above and moreseems resolved and alert and oriented q8bkiobzo for reoccuranc e or need to invokecbc and bmp weekly x 3 Wernicke's disease 29416 002 E51.2 13964 see above Alcohol use disorder 643 4796199 F10.90 23084720 heavy alcohol user now without etoh for at least 3 weekstreat ed wtih ativan in [facility] counseling provided in hospitalsu pportive carehas liver cirrhosism onitor for DTsthiamin e 100 mg po qdfolic acid 1 mg qdnaltrexo ne 50 mg po qd(unclear if she was on this at home)see above Type 2 claudia betes mellitus 75671068 E11.9 610411 pt insulin was adjusted while in hospital, had hypoglycem ia while in hospital and insulin adjustedla ntus 30 units qhs with snackISS with mealsgluca bayron prn hypoglycem iaOutpatie nt endocrine 11/04 845 am Chronic ob structive pulmonary disease 35029146 J44.9 214455111 ? copd vs asthma reports on chronic 2 liters at home, not mentioned in dc summarymon itor for need and titrate for sat >92%albute rol mdi prn wheezes, no chronic meds ?monitor Thyroid nodule 576239779 E04.1 6338938 88834 Thyroid Nodule noted on hospitaliz ationTS wnlCT angio: Heterogene ous 22mm nodule in L thyroidTPO Ab negativeOu tpatient endocrine 11/04 845 am Alcoholic cirrhosis 4200 68495 K70.30 5124637 monitor cirrhosis and liver panel prn, stable in hospitalav oid tylenol as allowedsee abovemonit orcannot monitor ammonia levels here, but will assess for confusion/ changes Mixed anxi ety and depressive disorder 641465392 F41.9 F32.A 969261 hx ofsertrali ne 50 mg po qdtrazodon e 200 mg po qhspsych eval prnmonitor for changes Gastroesop hageal reflux disease 599164407 K21.9 1293931366 protonix 20 mg bidlinzess 72 mcg qdmonitor Essential hypertension 51934035 I10 88212 losartan 25 mgpo qdmonitor bp, vitals Iron defic iency anemia 60350573 D50.9 14680935 hx offerrous sulfate 325 mg po qd Vitamin deficiency 72757 002 E56.9 62299 folic acidergoca liferol 36814 units 1 cap q weekcholec alciferol 2000 units qdcal carbonate 1250 mg bid Hyperlipidemia 35589155 E78.5 79023429 fenofibrat e 1 cap qhsatorvas tatin 40 mg po qhs Retention of urine 63836 4002 R33.9 81076 retention/ stress incontinen ce?noted [facility] hospital [facility] on myrbetriq 25 mg po qdmonitor Aspiration pneumonia 422 259080 J69.0 617092113 119820544 treated with abx in hospon chronic home o2, titrate prnmonitor for need of chest xray in 3-4 weeksmonit or resp status Lyme disease 35613943 A6 9.20 10814 Lyme Disease Positive IgG. IgG positive, IgM negativeNo signs of Lyme neuroborre liosis per IDInitiall y started on ceftriaxon e x1 week. Switched to Zosyn, stopped 10/09. completed Doxycyclin e x3 weeksmonit or for s/s if reoccurs Abrasion a nd/or friction burn of skin 219322647 T14.8XXA 722904 abrasion to mid upper backns wash, bacitracin , and cover with bandaid until healedmoni tor Chronic pain syndrome 37 3132163 G89.4 21804 pt reports chronic calve pain no longer on gabapentin as it was dc'd in hsopitalst art muscle rub cream to calves tid for painmonito r Obesity 370367071 E66.9 3299525668 winter sports manager to follow and recommende d diet changesmon itor weight Asthenia 37563316 R53.1 68438 pt ot eval and treatmonit or for changessup portive care and devices prn Counseling 043353754 Z71 .89 7654467 molst addressed and form filled outfull code Recurrent falls 66639337 2 R29.6 0295974 reports recurrent falls at homesuppor tive carept ot eval and treat [id number] Nicolas Smith MD [address] [address] 10/24/2024 11:34:09 10/30/2024 13:31:48 Metabolic encephalopathy 05264619 G93.41 862277 multifacto rial with etoh withdrawal and lyme infectionw as eval by psych felt returning to baselinemo nitor level of insightpsy ch eval at facility prn Lyme disease 17740119 A6 9.20 08170 see HPItested positive for lyme now completed doxymonito r sx and update ID with concerns Wernicke's disease 86639 002 E51.2 80844 see above Alcohol use disorder 411 0155603 F10.90 17797914 post withdrawal thiamine 100 mg qdmonitor need for increased support in community Alcoholic cirrhosis 4200 15352 K70.30 3381633 monitor lftsavoid hepatotoxi c medication sGI eval prn Type 2 claudia betes mellitus 02734576 E11.9 969747 monitor need to further titrate insulin dosing Chronic ob structive pulmonary disease 41261515 J44.9 713059558 unsure of baseline on O2 by NC at homereques t PCP notesmonit or respirator y status Thyroid nodule 410820839 E04.1 4637356 37953 incidental nodule noted during hospitaliz ation now with out patient f/u in place Gastroesop hageal reflux disease 244360717 K21.9 4848568121 protonix 20 mg bidcontinu edsee above Essential hypertension 51310641 I10 62708 losartan 25 mg qdmonitor bp and need to titrate Retention of urine 59402 4002 R33.9 32875 myrbetriq 25 mg po qdmonitor for retentionu rology eval prn Asthenia 72540360 R53.1 25927 PT OT eval and treatmonit or fall risk and need for increased support in community [id number] Marium Yang, MARTHA [address] [address] 10/27/2024 08:52:06 10/30/2024 14:13:24 Lyme disease 19225127 A69.20 77908 see HPI, extensive workup done in hospitalte sted positive for lyme now completed doxymonito r sx and update ID with concerns Metabolic encephalopathy 36622862 G93.41 125108 multifacto rial with etoh withdrawal and lyme infectionr eturning to baselinemo nitor level of insightpsy ch eval at facility prn Alcohol use disorder 233 8851399 F10.90 34442420 post withdrawal thiamine 100 mg qdmonitor need for increased support in community Alcoholic cirrhosis 4200 12052 K70.30 1621522 monitor lftsavoid hepatotoxi c medication sGI eval prn Asthenia 23710600 R53.1 48178 PT OT eval and treatmonit or fall risk and need for increased support in community Chronic ob structive pulmonary disease 80464957 J44.9 720893295 O2 by NC at home and here at baselinege ts notably sob withoutmon itor respirator y status Essential hypertension 74017334 I10 59872 losartan 25 mg qdmonitor bp and need to titrate Thyroid nodule 903788252 E04.1 8928768 13583 incidental nodule noted during hospitaliz ation now with out patient f/u in place 11/04 Aspiration pneumonia 422 079755 J69.0 195846236 424826917 treated with abx in hospon chronic home o2, titrate prnmonitor for need of chest xray in 3-4 weeksmonit or resp status Type 2 claudia betes mellitus 01643879 E11.9 102709 BS 100-300spt insulin was adjusted while in hospital, had hypoglycem ia while in hospital and insulin adjustedla ntus 30 units qhs with snackISS with mealsgluca bayron prn hypoglycem iaOutpatie nt endocrine 11/04 845 am Mixed anxi ety and depressive disorder 630970928 F41.9 F32.A 872906 hx ofsertrali ne 50 mg po qdtrazodon e 200 mg po qhspsych eval prnmonitor for changes Abrasion a nd/or friction burn of skin 064437153 T14.8XXA 968245 healing - abrasion to mid upper backns wash, bacitracin , and cover with bandaid until healedmoni tor Chronic pain syndrome 37 5017938 G89.4 35914 pt reports chronic calve pain no longer on gabapentin as it was dc'd in hsopitalmu scle rub cream to calves tid for paindiclof enac cream tid to lower legstizani dine 2 mg po qdmonitor Recurrent falls 88086696 2 R29.6 8003829 reports recurrent falls at homesuppor tive carept ot eval and treat Health Concerns Section Related Observation LastModified by Organization Detai ls LastModified Time None Recorded Concern Status LastModified by Organization Details LastModified Time None Recorded Advance Directives Directive N: Payers Insurance Date Sequence Insurance Name Policy Number Policy Muro Covered Member ID Muro Member ID Guarantor Name 10/31/2024 1 [facility] - DOS ON OR AFTER 2022 - MEDICARE ADVANTAGE [place] (MEDICARE REPLACEMENT/ADV ANTAGE - PPO) Pranav Tavarez [id number] Pranav Tavarez Notes Date Note Type Note Provider Name and Address Organization Details Recorded Time 5 text/html ROS as noted in the HPI Pt is seen for an initial intake. Pranav is a 63-year-old woman with complex history including liver cirrhosis, history of alcohol abuse, who presented on 09/28/24 altered mental status felt to be multifactoral due to ETOH withdrawal, hypoglycemia, small vessel changes noted on MRI, and lyme positive treated as below, here for rehab and continued care. Per [facility] dc summary:Symptoms started on or around September 20, 2024. Also, reportedly had a fall about 1 week prior to September 28 and stopped drinking ETOH at that time. She was evaluated at [facility], possible CSF leak reported in notes, however imaging was negative for any fracture or bleeding in the brain. Also noted to have hypoglycemia, down to 45. She has had an extensive neurologic workup. Hospital course was complicated by prolonged encephalopathy. Video EEG was negative for seizures. Patient was also noted to be positive for Lyme disease and was started on ceftriaxone initially that was switched to Doxy that she completd 3 weeks therapy of. Patient was started on Ativan for suspected catatonia, with improvement. She was seen by psychiatry. Her mentation is improving gradually and diet was advanced. Patient back to baseline clinically improved. Patient was seen by physical therapy recommended rehab. Patient remains hemodynamic stable to be discharged to rehab. Patient is anticipated to stay less than 30 days at rehab. Of note: She has a fu endocrinology visit on 11/04 at 845am. requesting she goes with facility transport. Encephalopathy Multifactorial; first noted by family around Sep 20. Wernicke s encephalopathy (alcohol use, malnutrition empiric thiamine started, MRI non-specific)CT head (non-acute, both initially and on 10/04)MRI brain: microangiopathy + marrow changes LP: negative.EEG + video EEG: negative for seizures.Blood culture negative, UA negative.CE, protein electrophoresis, ammonia level, heavy metal panel all within normal limits, Thyroid panel, cortisol level within normal limit.ASP pna-treated with abx. on chronic o2Lyme antibody positive,with positive IgG (receiving doxycycline).Much improved mentation with Ativan, suggesting an element of catatonia. Ativan stopped in hospital.Lyme Disease Positive IgG. IgG positive, IgM negative. No signs of Lyme neuroborreliosis per ID.Initially started on ceftriaxone x1 weekSwitched to Zosyn, stopped 10/09.Plan is for Doxycycline x3 weeks - completed.Suspected Hematologic/Infiltrative Process..MRI brain: marrow FLAIR hyperintensity and decreased diffusivity,.Concern for marrow-replacing or infiltrative process. NM Bone and/or Joint Whole Body 10/07/24- Faint focal uptake in bilateral sacroiliac joints, likely arthritic. No other focal or diffuse abnormal uptake in the osseous structures.. No abnormal uptake within the calvarium. spoke with Dr. Rahman from hematology team 10/09, no further heme evaluation required for bone marrow enhancement. All work up so far negative. No outpatient heme follow up required.Video EEG: no epileptiform dischargesMRI/CT: no acute findingsThyroid Nodulenoted: CT angio: Heterogeneous 22mm nodule in L thyroid.TPO Ab negative,Outpatient endocrine/PCP follow-up schedule on 11/04/24 for this.Alcohol Use Disorder. Chronic use: ~5 beers + 2 nips daily.Stopped drinking ~10 days ago.Thiamine continuedDM meds adjusted in hospital. gabapentin dc'd. Labs pending today. On exam, Pt is a alert and oriented x 4. Seen with art psychotherapist. She is pleasant and reports she was not sure of the results of the tests and plan from the hospital. It was reviewed with at bedside also. She reports some calf pain muscle aches at times today, states this is not new and uses bengay at home. Will order muscle rub here per request. code status addressed and wishes to be a full code todayMOLST: full code 10/23/24morse: high risk Marium Yang, MARTHA [address], [address], [place], [address], [facility] 10/23/2024 10:43:42 5 text/html ROS as noted in the HPI Patient is a 63 yo female admit from hospital after presenting with altered mental status and recent falls. Known ETOH abuse with concern for withdrawal. Tested positive for lyme disease treated with rocephin then doxycycline. Not felt safe to return home at that time Patient currently A and O x 3 able to make own medical decisions and extended family present help with hx PMH significant forETOHalcoholic cirrosiscognitive impairmentcopdanxiety / depressiongerdurinary retentionchronic pain syndromedmhldanemia admit to facility for continued care and therapy to eval and treat Nicolas Smith MD [address], [address], [place], [address], [facility] 10/24/2024 12:02:57 5 text/html ROS as noted in the HPI Pt is seen for an acute visit. PMH: liver cirrhosis, history of alcohol abuse, cognitive impairment copd , anxiety / depressiongerd , urinary retention , chronic pain syndrome , dm , hld and anemia, on home o2 She presented on 09/28/24 altered mental status felt to be multifactoral due to ETOH withdrawal, hypoglycemia, small vessel changes noted on MRI, and lyme positive treated with abx, o2, ativan, here for rehab and continued care. She had an extensive hematology, lyme, UA, seizure, and pysch workup. Since here she was seen by PMR started on tizanidine, muscle rub cream and diclofenec. Overall, she is improving with walker now using whole base of her foot and not just toes to walk. She reports she has not received any diclofenac or muscle rub cream, however they are ordered 3 times a day. 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 On exam, Pt is a alert and oriented x 4. Seen with art psychotherapist. NAD. Legs remains shaky with walking with walker. and daughter in room agreeable to care and plan. She uses o2 at home and attempts to go to bathroom without and is sob, resolved with o2. MOLST: full code 10/23/24morse: high risk Marium Yang, MARTHA [address], [address], [place], [address], [facility] 10/27/2024 19:41:53 OBGyn Episode No OBEpisode recorded.
== END 2025-03-25 10:12 | disposition home or self-care (01) ==
LOC: HO.MRI 10:11
PROVIDERS: PCP Student in an Organized Health Care Education/Training Program; Visit Provider Obstetrics & Gynecology
DX: N85.8 Other specified noninflammatory disorders of uterus (principal)
CPT/HCPCS: 72197; A9585